=== PATIENT | female | born 1970 | race African-American/Black ===

== ENCOUNTER 2018-02-15 17:26 | Emergency (ER) | payer SELFPAY ==
[2018-02-15] MEDS ORDERED: cloNIDine HCl 0.1 MG TAB ONE (18:38)
--- NOTE | 2018-02-15 19:21 | RAD REPORT ---
EXAM DESCRIPTION: Lauren Lubin (2 Views)02/15/2018 7:15 pm CLINICAL HISTORY: Cough COMPARISON: 2014 FINDINGS: The lungs appear clear of acute infiltrate. The heart is normal size IMPRESSION: No acute abnormalities displayed
--- NOTE | 2018-02-15 19:26 | ER ---
Nurse's Notes [facility] Name: Nisreen Astorga Age: 47 yrs Sex: Female : 1970 Arrival Date: 02/15/2018 Time: 17:30 Bed 25 Private MD: Diagnosis: Bronchitis, not specified as acute or chronic;Acute serous otitis media, bilateral Presentation: 02/15 17:38 Presenting complaint: Patient states: Sore throat, chest pain, sinus congestion, hb headache, abdominal pain, malaise, body aches, and and fever since yesterday. Transition of care: patient was not received from another setting of care. Onset of symptoms was February 14, 2018. Care prior to arrival: None. 17:38 Method Of Arrival: Ambulatory hb 17:38 Acuity: DANIEL 3 hb Triage Assessment: 19:17 General: Appears in no apparent distress. well groomed, well developed, well nourished, rk2 Behavior is calm, cooperative. Pain: Complains of pain in General pain, body aches. Neuro: Level of Consciousness is alert, obeys commands, Oriented to person, place, time, situation. Respiratory: Airway is patent Respiratory effort is even, unlabored, Respiratory pattern is regular, symmetrical. Derm: Skin is pink, warm \T\ dry. 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 - Social history:: Smoking status: Patient/guardian denies using tobacco. Screenin:15 Abuse screen: Denies threats or abuse. rk2 18:15 Nutritional screening: No deficits noted. Tuberculosis screening: No symptoms or risk rk2 factors identified. Fall Risk None identified. Assessment: 19:16 Reassessment: Pt. returned from xray. rk2 19:19 Pain:. rk2 Vital Signs: 17:41 BP 229 / 78; Pulse 106; Resp 20; Temp 99; Pulse Ox 98% on R/A; Weight 141.07 kg; Height hb 5 ft. 2 in. (157.48 cm); Pain 10/10; 19:34 BP 185 / 95; Pulse 99; Resp 19; Pulse Ox 98% ; rk2 17:41 Body Mass Index 56.88 (141.07 kg, 157.48 cm) hb ED Course: 17:30 Patient arrived in ED. as 17:40 Triage completed. hb 17:41 Arm band placed on right wrist. hb 17:44 Isabelle Petersen, RN is Primary Nurse. rk2 17:51 Crystal Álvarez FNP-C is [facility]. snw 17:51 Karlos Zelaya MD is Attending Physician. snw 18:15 Patient has correct armband on for positive identification. Bed in low position. Call rk2 light in reach. Side rails up X2. 19:07 Patient moved to radiology via wheelchair. kc2 19:07 X-ray completed. Patient tolerated procedure well. kc2 19:07 Patient moved back from radiology. kc2 19:07 Chest Pa And Lat (2 Views) XRAY In Process Unspecified. EDMS 19:53 No provider procedures requiring assistance completed. Patient did not have IV access rk2 during this emergency room visit. Administered Medications: 18:22 Drug: cloNIDine 0.2 mg Route: PO; rk2 19:40 Follow up: Response: Blood pressure is lowered rk2 Outcome: 19:24 Discharge ordered by . snw 19:53 Discharged to home ambulatory. rk2 19:53 Condition: good 19:53 Discharge instructions given to patient, Prescriptions given X 3. 19:55 Patient left the ED. rk2 Signatures: Dispatcher [employer] EDMS Crystal Álvarez FNP-C FNP-[facility]cedez Crockett as Bee Villagran RN RN Terri Watkins kc2 Isabelle Petersen, JOHN RN rk2
--- NOTE | 2018-02-15 19:26 | EDPHYS ---
Physician Documentation [facility] Name: Nisreen Astorga Age: 47 yrs Sex: Female : 1970 Arrival Date: 02/15/2018 Time: 17:30 Bed 25 Private MD: ED Physician Karlos Zelaya HPI: 02/15 19:20 This 47 yrs old Black Female presents to ER via Ambulatory with complaints of Flu snw Symptoms. 19:20 Onset: The symptoms/episode began/occurred suddenly. Associated signs and symptoms: snw Pertinent positives: cough, sore throat. Modifying factors: The patient symptoms are alleviated by nothing. It is unknown whether or not the patient has had similar symptoms in the past. pt has medication bottles that have not been filled x 1 and 2 years. Pt states current symptoms started suddenly yesterday. 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 - Social history:: Smoking status: Patient/guardian denies using tobacco. ROS: 19:22 Constitutional: Negative for fever, chills, and weight loss, Eyes: Negative for injury, snw pain, redness, and discharge, ENT: Negative for injury, pain, and discharge, Neck: Negative for injury, pain, and swelling. 19:22 Cardiovascular: Negative for chest pain, palpitations, and edema. 19:22 Abdomen/GI: Negative for abdominal pain, nausea, vomiting, diarrhea, and constipation, Back: Negative for injury and pain, : Negative for injury, bleeding, discharge, and swelling, MS/Extremity: Negative for injury and deformity, Skin: Negative for injury, rash, and discoloration, Neuro: Negative for headache, weakness, numbness, tingling, and seizure. 19:22 Respiratory: Positive for cough, with no reported sputum. Exam: 19:18 Head/Face: Normocephalic, atraumatic. Eyes: Pupils equal round and reactive to light, snw extra-ocular motions intact. Lids and lashes normal. Conjunctiva and sclera are non-icteric and not injected. Cornea within normal limits. Periorbital areas with no swelling, redness, or edema. ENT: Nares patent. No nasal discharge, no septal abnormalities noted. Tympanic membranes are erythematous and external auditory canals are clear. Oropharynx with no redness, swelling, or masses, exudates, or evidence of obstruction, uvula midline. Mucous membranes moist. Neck: Trachea midline, no thyromegaly or masses palpated, and no cervical lymphadenopathy. Supple, full range of motion without nuchal rigidity, or vertebral point tenderness. No Meningismus. Chest/axilla: Normal chest wall appearance and motion. Nontender with no deformity. No lesions are appreciated. 19:18 Abdomen/GI: Soft, non-tender, with normal bowel sounds. No distension or tympany. No guarding or rebound. No evidence of tenderness throughout. Back: No spinal tenderness. No costovertebral tenderness. Full range of motion. Skin: Warm, dry with normal turgor. Normal color with no rashes, no lesions, and no evidence of cellulitis. MS/ Extremity: Pulses equal, no cyanosis. Neurovascular intact. Full, normal range of motion. Neuro: Awake and alert, GCS 15, oriented to person, place, time, and situation. Cranial nerves II-XII grossly intact. Motor strength 5/5 in all extremities. Sensory grossly intact. Cerebellar exam normal. Normal gait. 19:18 Constitutional: The patient appears alert, awake, obese. 19:18 Cardiovascular: Rate: tachycardic, Edema: is not appreciated. 19:18 Respiratory: the patient does not display signs of respiratory distress, Respirations: normal, Breath sounds: + upper airway congestion. bronchitic cough. Vital Signs: 17:41 BP 229 / 78; Pulse 106; Resp 20; Temp 99; Pulse Ox 98% on R/A; Weight 141.07 kg; Height hb 5 ft. 2 in. (157.48 cm); Pain 10/10; 19:34 BP 185 / 95; Pulse 99; Resp 19; Pulse Ox 98% ; rk2 17:41 Body Mass Index 56.88 (141.07 kg, 157.48 cm) hb MDM: 17:51 Patient medically screened. snw 19:29 Data reviewed: vital signs, nurses notes. Data interpreted: Pulse oximetry: on room air snw is 98 %. Interpretation: normal. Counseling: I had a detailed discussion with the patient and/or guardian regarding: the historical points, exam findings, and any diagnostic results supporting the discharge/admit diagnosis, the presence of at least one elevated blood pressure reading (>120/80) during this emergency department visit, lab results, radiology results, the need for outpatient follow up, to return to the emergency department if symptoms worsen or persist or if there are any questions or concerns that arise at home. Special discussion: I have referred the patient to see his PCP for further evaluation of high blood pressure. Based on the history and exam findings, there is no indication for further emergent testing or inpatient evaluation. I discussed with the patient/guardian the need to see the primary care provider for further evaluation of the symptoms. 02/15 17:51 Order name: Flu; Complete Time: 18:51 snw 02/15 17:51 Order name: Strep; Complete Time: 18:51 snw 02/15 18:45 Order name: Throat Culture EDMS 02/15 18:51 Order name: Chest Pa And Lat (2 Views) XRAY; Complete Time: 19:27 snw Administered Medications: 18:22 Drug: cloNIDine 0.2 mg Route: PO; rk2 19:40 Follow up: Response: Blood pressure is lowered rk2 Disposition: 02/16 07:11 Co-signature as Attending Physician, Karlos Zelaya MD I agree with the assessment and felipe plan of care. Disposition: 02/15/18 19:24 Discharged to Home. Impression: Bronchitis, not specified as acute or chronic, Acute serous otitis media, bilateral. - Condition is Stable. - Discharge Instructions: Acute Bronchitis, Otitis Media, Adult, Hypertension, Cough, Adult, Rehydration, Adult. - Prescriptions for amlodipine 10 mg Oral tablet - take 1 tablet by ORAL route once daily; 30 tablet. Albuterol Sulfate 90 mcg/actuation - inhale 1-2 puff by INHALATION route every 4-6 hours; 1 Inhaler. Zithromax 500 mg Oral Tablet - take 1 tablet by ORAL route once daily for 5 days; 5 tablet. - Work release form, Medication Reconciliation Form, Thank You Letter, Antibiotic Education, Prescription Opioid Use form. - Follow up: Private Physician; When: 2 - 3 days; Reason: Recheck today's complaints, Continuance of care, Re-evaluation by your physician. Follow up: Emergency Department; When: As needed; Reason: Worsening of condition. Signatures: Dispatcher [employer] Karlos Sagastume MD MD cha Therrien, Shelly, WIRE STITCHER OPERATOR-C WIRE STITCHER OPERATOR-Csnw Bee Villagran, RN RN hb Isabelle Petersen RN RN rk2
[2018-02-15 20:04] VITALS: TEMP 99; O2SAT 98
[2018-02-15 20:05] VITALS: BP 185/95
== END 2018-02-15 19:55 | disposition home or self-care (01) ==
LOC: ER 17:26
DX: J40 Bronchitis, not specified as acute or chronic (principal); H65.03 Acute serous otitis media, bilateral; I10 Essential (primary) hypertension
CPT/HCPCS: 71046; 87070; 87081; 87804; 99283

== ENCOUNTER 2018-07-25 08:24 | Observation (INO) | payer SELFPAY ==
[2018-07-25] MEDS ORDERED: NA CHLORIDE 0.9% 1,000 ML ONE (08:52)
[2018-07-25] MEDS ORDERED: ASPIRIN 81 MG CHEWABLE TABLET ONE (08:52)
[2018-07-25 09:05] LABS: Absolute Lymphocytes (CBC) 1.8 K/uL (0.7-4.9); Absolute Monocytes 0.5 K/uL (0.1-1.3); Absolute Neutrophil 3.3 K/uL (1.8-8.0); Basophils % 0.4 % (0-1.3); Eosinophils % 0.5 % (0-4.4); Hematocrit 38.7 % (36.0-45.0); Lymphocytes % 32.2 % (15.3-44.8); MCH 29.6 pg (27.0-35.0); MCV 89.4 fL (80-100); MPV 9.5 fL (7.6-11.3); Monocytes % 8.2 % (3.3-12.3); RBC Red Blood Cell Count 4.33 M/uL (3.86-4.86)
[2018-07-25 09:07] LABS: Protime INR 1.01
--- NOTE | 2018-07-25 09:19 | RAD REPORT ---
EXAM DESCRIPTION: RAD - Chest Single View - 07/25/2018 8:55 am CLINICAL HISTORY: CHEST PAIN Chest pain. COMPARISON: Chest Pa And Lat (2 Views) dated 02/15/2018; CHEST SINGLE VIEW dated 03/01/2014; CHEST SIN GLE VIEW dated 02/28/2014; CHEST SINGLE VIEW dated 11/11/2008 FINDINGS: Portable technique limits examination quality. The lungs are grossly clear. The heart is normal in size. No displaced fractures. IMPRESSION: No acute intrathoracic process suspected.
[2018-07-25 09:26] LABS: ALT/SGPT 21 U/L (12-78); AST/SGOT 11 U/L (15-37); Albumin 3.4 g/dL (3.4-5.0); Alkaline Phosphatase 66 U/L (45-117); BUN Blood Urea Nitrogen 15 mg/dL (7-18); Bicarbonate 30 mmol/L (21-32); Bilirubin Direct < 0.1 mg/dL (0-0.2); Bilirubin Total 0.2 mg/dL (0.2-1.0); CKMB Creatine Kinase MB < 1.0 ng/mL (0.3-3.6); Creatine Phosphokinase 70 U/L (26-192); Glucose Level 96 mg/dL (74-106); Lipase 106 U/L (73-393); NT PRO-BNP 89 pg/mL (<125); Potassium 3.8 mmol/L (3.5-5.1); Protein, Total 8.5 g/dL (6.4-8.2); Sodium Level 141 mmol/L (136-145); Troponin (Emerg Dept Use Only) < 0.02 ng/mL (0.0-0.045)
[2018-07-25] MEDS ORDERED: ENOXAPARIN 40 MG/0.4 ML SQ ONE (09:27)
[2018-07-25] MEDS ORDERED: ENOXAPARIN 100 MG/ML SYR SQ ONE (09:27)
[2018-07-25] MEDS ORDERED: METOPROLOL TAR 50 MG TAB ONE (09:27)
[2018-07-25] MEDS ORDERED: MORPHINE 4 MG/ML SYR ONE (09:44)
[2018-07-25] MEDS ORDERED: ONDANSETRON 4 MG/2 ML VIAL ONE (09:44)
--- NOTE | 2018-07-25 10:16 | RAD REPORT ---
EXAM DESCRIPTION: US - Extrem Venous W Compress Iban - 07/25/2018 10:03 am CLINICAL HISTORY: PAIN Bilateral leg edema and swelling. COMPARISON: No comparisons TECHNIQUE: Real-time sonographic interrogation of the left and right lower extremity deep venous sys tems was performed. FINDINGS: Normal compressibility, flow augmentation, phasic flow and spontaneous flow is identified in both the left and right lower extremity deep venous systems. 5 cm right Soto's cyst. IMPRESSION: No sonographic evidence of left or right lower extremity deep venous thrombosis.
--- NOTE | 2018-07-25 10:20 | RAD REPORT ---
EXAM DESCRIPTION: CT - Chest For Pe Angio - 07/25/2018 10:12 am CLINICAL HISTORY: Chest pain. Chest pain;Dyspnea COMPARISON: CTANGIO CHEST FOR PE dated 02/28/2014 TECHNIQUE: CT angiogram of the pulmonary arteries was performed with MIP. All CT scans are performed using dose optimization technique as appropriate and may include automated exposure control or mA/KV adjustment according to patient size. FINDINGS: No evidence of pulmonary thromboembolism. No acute aortic finding demonstrated. The lungs are clear. No significant pericardial or pleural fluid. Mild thoracic spine degenerative changes. IMPRESSION: No evidence of pulmonary thromboembolism. No acute lung findings.
--- NOTE | 2018-07-25 10:58 | ER ---
Nurse's Notes [facility] Name: Nisreen Astorga Age: 47 yrs Sex: Female : 1970 Arrival Date: 07/25/2018 Time: 08:30 Bed 15 Private MD: None, None Diagnosis: Other chest pain;Essential (primary) hypertension;Obesity, unspecified;Dyspnea Presentation: 07/25 08:41 Presenting complaint: Patient states: Reports chest pain x 1 week, worse w/ movement ph and deep breathing, also c/o SOB, nausea and blurred vision. Transition of care: patient was not received from another setting of care. Onset of symptoms was July 25, 2018. Risk Assessment: Do you want to hurt yourself or someone else? Patient reports no desire to harm self or others. Initial Sepsis Screen: Does the patient meet any 2 criteria? No. Patient's initial sepsis screen is negative. Does the patient have a suspected source of infection? No. Patient's initial sepsis screen is negative. Care prior to arrival: None. 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 - Social history:: Smoking status: Patient/guardian denies using tobacco. - Ebola Screening: : No symptoms or risks identified at this time. - Family history:: not pertinent. Screenin:40 Abuse screen: Denies threats or abuse. Nutritional screening: No deficits noted. rb1 Tuberculosis screening: No symptoms or risk factors identified. Fall Risk None identified. Assessment: 08:40 General: Appears in no apparent distress. comfortable, obese, Behavior is calm, rb1 cooperative, Reports chills for Denies fever. Pain: Complains of pain in mid-sternal area Pain radiates to middle of back Pain currently is 8 out of 10 on a pain scale. Pain began x 1 week Aggravated by deep breathing and movement. Neuro: Level of Consciousness is awake, alert, obeys commands, Oriented to person, place, time, situation, Reports headache in left frontal area. Cardiovascular: Capillary refill < 3 seconds is brisk in bilateral fingers. Respiratory: Reports shortness of breath on exertion Airway is patent Respiratory effort is even, unlabored, Respiratory pattern is regular, symmetrical. GI: No signs and/or symptoms were reported involving the gastrointestinal system. : No signs and/or symptoms were reported regarding the genitourinary system. Derm: Skin is dry, Skin is normal, Skin temperature is warm. 08:50 Reassessment: Patient appears in no apparent distress at this time. Patient is alert, ss oriented x 3, equal unlabored respirations, skin warm/dry/pink. XRAY being obtained at this time. 09:35 Reassessment: Patient appears in no apparent distress at this time. Patient and/or rb1 family updated on plan of care and expected duration. Pain level reassessed. Patient is alert, oriented x 3, equal unlabored respirations, skin warm/dry/pink. Family at bedside. 10:29 Reassessment: Patient appears in no apparent distress at this time. Patient and/or rb1 family updated on plan of care and expected duration. Pain level reassessed. Patient is alert, oriented x 3, equal unlabored respirations, skin warm/dry/pink. Family at bedside. 11:28 Reassessment: Patient appears in no apparent distress at this time. No changes from rb1 previously documented assessment. 12:17 Reassessment: Patient appears in no apparent distress at this time. Patient and/or sm4 family updated on plan of care and expected duration. Pain level reassessed. Patient is alert, oriented x 3, equal unlabored respirations, skin warm/dry/pink. 12:22 Reassessment: Tried to call report and was left on hold. rb1 12:24 Reassessment: Tried to call report and was left on hold. rb1 12:26 Reassessment: Called report to AGUSTIN Orona. Information from the [facility] was given, all rb1 questions asked and answered. Vital Signs: 08:43 BP 178 / 92; Pulse 91; Resp 22; Temp 98.0; Pulse Ox 97% on R/A; Weight 141.07 kg; ph Height 5 ft. 2 in. (157.48 cm); Pain 8/10; 09:00 BP 203 / 93; Pulse 85; Resp 20; Pulse Ox 99% on R/A; jl7 09:30 BP 215 / 96; Pulse 77; Resp 17; Pulse Ox 99% ; rb1 10:22 BP 187 / 100; Pulse 66; Resp 22; Pulse Ox 99% ; rb1 10:45 BP 200 / 94; Pulse 61; Resp 20; Pulse Ox 99% on R/A; rb1 11:39 BP 195 / 88; Pulse 55; Resp 20; Pulse Ox 98% on R/A; rb1 12:18 BP 180 / 92; Pulse 57; Resp 21; Pulse Ox 99% on R/A; sm4 08:43 Body Mass Index 56.88 (141.07 kg, 157.48 cm) ph ED Course: 08:30 Patient arrived in ED. sb2 08:31 None, None is Private Physician. sb2 08:36 Judi Hutson, RN is Primary Nurse. rb1 08:37 Karlos Zelaya MD is Attending Physician. felipe 08:40 Patient has correct armband on for positive identification. Bed in low position. Call rb1 light in reach. Side rails up X 1. financial analysis consultant on. Pulse ox on. NIBP on. Warm blanket given. 08:43 Triage completed. ph 08:44 Arm band placed on Patient placed in an exam room. ph 08:47 EKG done, by laundry technician. reviewed by Karlos Zelaya MD. at1 08:50 Inserted saline lock: 22 gauge in right antecubital area, using aseptic technique. ss Blood collected. Patient maintains SpO2 saturation greater than 95% on room air. 08:54 X-ray completed. Portable x-ray completed in exam room. Patient tolerated procedure ml well. 08:56 XRAY Chest (1 view) In Process Unspecified. EDMS 09:46 US Extremity Venous W Compression Iban In Process Unspecified. EDMS 10:05 Ultrasound completed. Patient tolerated well. hr 10:[address] via wheelchair. hr 10:49 Urine collected: clean catch specimen, cloudy, priya colored. jb1 10:56 Bev Milligan MD is Hospitalizing Provider. felipe 12:43 No provider procedures requiring assistance completed. Patient admitted, IV remains in rb1 place. Administered Medications: 08:50 Drug: Aspirin Chewable Tablet 162 mg Route: PO; rb1 09:15 Follow up: Response: No adverse reaction rb1 09:30 Drug: NS 0.9% 1000 ml Route: IV; Rate: 125 ml/hr; Site: right antecubital; ss 12:43 Follow up: IV Status: Infusion continued upon admission rb1 09:30 Drug: Lovenox 1 mg/kg {Note: 100 mg administered to L lower abd and 40 mg administered ss in R lower abd.} Route: Sub-Q; Site: left lower abdomen; 10:10 Follow up: Response: No adverse reaction rb1 09:30 Drug: Lopressor (metoprolol TARTRATE) 50 mg Route: PO; ss 10:30 Follow up: Response: No adverse reaction; Blood pressure is unchanged rb1 10:27 Drug: morphine 2 mg Route: IVP; Site: right antecubital; rb1 10:40 Follow up: Response: No adverse reaction; Pain is decreased sm4 10:27 Drug: Zofran 4 mg Route: IVP; Site: right antecubital; rb1 11:40 Follow up: Response: No adverse reaction; Nausea is decreased sm4 12:43 Not Given (Pt. did not want the dose before going to the flood.): morphine 2 mg IVP oncerb1 Outcome: 10:56 Decision to Hospitalize by Provider. [facility] 12:43 Admitted to Med/surg accompanied by nurse, via wheelchair, room 228, with chart, Report rb1 called to AGUSTIN Orona. Information from the SB[facility] was given. All questions asked and answered. 12:43 Condition: stable rb1 12:43 Instructed on the need for admit. 12:47 Patient left the ED. rb1 Signatures: Dispatcher [employer] EDMS Mario Boucher jb1 Karlos Zelaya MD MD cha Rod, Haley hr Lopez, Melissa ml Smirch, Shelby, RN RN ss Leydi Kohli, gettering operator EKG Tat1 Jamila Sherwood RN RN Judi Thornton, RN RN rb1 Osorio Michelle RN RN [email or web address] Sandra Payan sb2 Griffin Jacobson RN RN sm4
--- NOTE | 2018-07-25 10:58 | EDPHYS ---
Physician Documentation [facility] Name: Nisreen Astorga Age: 47 yrs Sex: Female : 1970 Arrival Date: 07/25/2018 Time: 08:30 Bed 15 Private MD: None, None ED Physician Karlos Zelaya HPI: 07/25 09:22 This 47 yrs old Black Female presents to ER via Ambulatory with complaints of Chest felipe Pain. 09:22 The patient or guardian reports chest pain that is located primarily in the substernal felipe area, anterior chest wall. Onset: 5 day(s) ago. The pain does not radiate. Associated signs and symptoms: The patient has no apparent associated signs or symptoms. The chest pain is described as a heaviness, causing indigestion, a pressure. Duration: The patient or guardian reports multiple episodes, that wax and wane, with no pattern. Modifying factors: The symptoms are alleviated by remaining still, rest, the symptoms are aggravated by breathing, exertion, movement. Severity of pain: At its worst the pain was mild in the emergency department the pain is unchanged. The patient has not experienced similar symptoms in the past. 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 - Social history:: Smoking status: Patient/guardian denies using tobacco. - Ebola Screening: : No symptoms or risks identified at this time. - Family history:: not pertinent. ROS: 09:22 Constitutional: Negative for fever, chills, and weight loss, Eyes: Negative for injury, felipe pain, redness, and discharge, ENT: Negative for injury, pain, and discharge, Neck: Negative for injury, pain, and swelling, Respiratory: Negative for shortness of breath, cough, wheezing, and pleuritic chest pain, Abdomen/GI: Negative for abdominal pain, nausea, vomiting, diarrhea, and constipation, Back: Negative for injury and pain, : Negative for injury, bleeding, discharge, and swelling, MS/Extremity: Negative for injury and deformity, Skin: Negative for injury, rash, and discoloration, Neuro: Negative for headache, weakness, numbness, tingling, and seizure, Psych: Negative for depression, anxiety, suicide ideation, homicidal ideation, and hallucinations, Allergy/Immunology: Negative for hives, rash, and allergies, Endocrine: Negative for neck swelling, polydipsia, polyuria, polyphagia, and marked weight changes, Hematologic/Lymphatic: Negative for swollen nodes, abnormal bleeding, and unusual bruising. :22 Cardiovascular: Positive for chest pain. Exam: : Constitutional: This is a well developed, well nourished patient who is awake, alert, felipe and in no acute distress. Head/Face: Normocephalic, atraumatic. Eyes: Pupils equal round and reactive to light, extra-ocular motions intact. Lids and lashes normal. Conjunctiva and sclera are non-icteric and not injected. Cornea within normal limits. Periorbital areas with no swelling, redness, or edema. ENT: Nares patent. No nasal discharge, no septal abnormalities noted. Tympanic membranes are normal and external auditory canals are clear. Oropharynx with no redness, swelling, or masses, exudates, or evidence of obstruction, uvula midline. Mucous membranes moist. Neck: Trachea midline, no thyromegaly or masses palpated, and no cervical lymphadenopathy. Supple, full range of motion without nuchal rigidity, or vertebral point tenderness. No Meningismus. Chest/axilla: Normal chest wall appearance and motion. Nontender with no deformity. No lesions are appreciated. Cardiovascular: Regular rate and rhythm with a normal S1 and S2. No gallops, murmurs, or rubs. Normal PMI, no JVD. No pulse deficits. Respiratory: Lungs have equal breath sounds bilaterally, clear to auscultation and percussion. No rales, rhonchi or wheezes noted. No increased work of breathing, no retractions or nasal flaring. Abdomen/GI: Soft, non-tender, with normal bowel sounds. No distension or tympany. No guarding or rebound. No evidence of tenderness throughout. Back: No spinal tenderness. No costovertebral tenderness. Full range of motion. Skin: Warm, dry with normal turgor. Normal color with no rashes, no lesions, and no evidence of cellulitis. MS/ Extremity: Pulses equal, no cyanosis. Neurovascular intact. Full, normal range of motion. Neuro: Awake and alert, GCS 15, oriented to person, place, time, and situation. Cranial nerves II-XII grossly intact. Motor strength 5/5 in all extremities. Sensory grossly intact. Cerebellar exam normal. Normal gait. Psych: Awake, alert, with orientation to person, place and time. Behavior, mood, and affect are within normal limits. 09:22 Musculoskeletal/extremity: Extremities: all appear grossly normal, with no appreciated pain with palpation, DVT Exam: No signs of deep vein thrombosis. no pain, no swelling, no tenderness, negative Homans' sign noted on exam, no appreciated bluish discoloration, no erythema, no increased warmth. Vital Signs: 08:43 BP 178 / 92; Pulse 91; Resp 22; Temp 98.0; Pulse Ox 97% on R/A; Weight 141.07 kg; ph Height 5 ft. 2 in. (157.48 cm); Pain 8/10; 09:00 BP 203 / 93; Pulse 85; Resp 20; Pulse Ox 99% on R/A; jl7 09:30 BP 215 / 96; Pulse 77; Resp 17; Pulse Ox 99% ; rb1 10:22 BP 187 / 100; Pulse 66; Resp 22; Pulse Ox 99% ; rb1 10:45 BP 200 / 94; Pulse 61; Resp 20; Pulse Ox 99% on R/A; rb1 11:39 BP 195 / 88; Pulse 55; Resp 20; Pulse Ox 98% on R/A; rb1 12:18 BP 180 / 92; Pulse 57; Resp 21; Pulse Ox 99% on R/A; sm4 08:43 Body Mass Index 56.88 (141.07 kg, 157.48 cm) ph MDM: 08:37 Patient medically screened. [facility] 09:25 Data reviewed: vital signs, nurses notes, lab test result(s), EKG, radiologic studies, [facility] CT scan, plain films, ultrasound. 07/25 08:38 Order name: Basic Metabolic Panel; Complete Time: 11:58 [facility] 07/25 08:38 Order name: CBC with Diff; Complete Time: 11:58 [facility] 07/25 08:38 Order name: Ckmb; Complete Time: 11:58 [facility] 07/25 08:38 Order name: CPK; Complete Time: 11:58 [facility] 07/25 08:38 Order name: LFT's; Complete Time: 11:58 [facility] 07/25 08:38 Order name: Magnesium; Complete Time: 11:58 [facility] 07/25 08:38 Order name: NT PRO-BNP; Complete Time: 11:58 [facility] 07/25 08:38 Order name: PT-INR; Complete Time: 11:58 felipe 07/25 08:38 Order name: Ptt, Activated; Complete Time: 11:58 [facility] 07/25 08:38 Order name: Troponin (emerg Dept Use Only); Complete Time: 11:58 [facility] 07/25 08:38 Order name: Lipase; Complete Time: 11:58 [facility] 07/25 08:38 Order name: D-Dimer; Complete Time: 11:58 [facility] 07/25 10:51 Order name: Urine Dipstick--Ancillary (enter results) eb 07/25 10:51 Order name: Urine --Ancillary (enter results) eb 07/25 08:38 Order name: Urine Test (obtain specimen); Complete Time: 10:50 [facility] 07/25 08:38 Order name: XRAY Chest (1 view); Complete Time: 11:58 [facility] 07/25 08:38 Order name: EKG; Complete Time: 08:40 [facility] 07/25 08:38 Order name: Cardiac monitoring; Complete Time: 08:50 [facility] 07/25 09:13 Order name: US Extremity Venous W Compression Iban; Complete Time: 11:58 [facility] 07/25 09:13 Order name: CT Chest For PE Angio [facility] 07/25 09:33 Order name: CONS Physician Consult [facility] 07/25 09:33 Order name: Echo with Doppler [facility] 07/25 10:20 Order name: CT; Complete Time: 11:58 [facility] 07/25 08:38 Order name: EKG - Nurse/Tech; Complete Time: 08:50 [facility] 07/25 08:38 Order name: IV Saline Lock; Complete Time: 08:50 [facility] 07/25 08:38 Order name: Labs collected and sent; Complete Time: 08:50 [facility] 07/25 08:38 Order name: O2 Per Protocol; Complete Time: 08:50 [facility] 07/25 08:38 Order name: O2 Sat Monitoring; Complete Time: 08:50 [facility] 07/25 08:38 Order name: Urine Dipstick-Ancillary (obtain specimen); Complete Time: 11:06 [facility] Administered Medications: 08:50 Drug: Aspirin Chewable Tablet 162 mg Route: PO; rb1 09:15 Follow up: Response: No adverse reaction rb1 09:30 Drug: NS 0.9% 1000 ml Route: IV; Rate: 125 ml/hr; Site: right antecubital; ss 12:43 Follow up: IV Status: Infusion continued upon admission rb1 09:30 Drug: Lovenox 1 mg/kg {Note: 100 mg administered to L lower abd and 40 mg administered ss in R lower abd.} Route: Sub-Q; Site: left lower abdomen; 10:10 Follow up: Response: No adverse reaction rb1 09:30 Drug: Lopressor (metoprolol TARTRATE) 50 mg Route: PO; ss 10:30 Follow up: Response: No adverse reaction; Blood pressure is unchanged rb1 10:27 Drug: morphine 2 mg Route: IVP; Site: right antecubital; rb1 10:40 Follow up: Response: No adverse reaction; Pain is decreased sm4 10:27 Drug: Zofran 4 mg Route: IVP; Site: right antecubital; rb1 11:40 Follow up: Response: No adverse reaction; Nausea is decreased sm4 12:43 Not Given (Pt. did not want the dose before going to the flood.): morphine 2 mg IVP oncerb1 Disposition: 07/25/18 10:56 Hospitalization ordered by Bev Milligan for Observation. Preliminary diagnosis are Other chest pain, Essential (primary) hypertension, Obesity, unspecified, Dyspnea. - Bed requested for Telemetry/MedSurg (observation). - Status is Observation. rb1 - Condition is Stable. - Problem is new. - Symptoms have improved. UTI on Admission? No Signatures: Dispatcher [employer] EDDE Karlos Zelaya MD MD cha Smirch, Shelby RN RN ss Jamila Sherwood RN RN Judi Hutson, RN RN rb1 Griffin Jacobson RN sm4 Corrections: (The following items were deleted from the chart) 12:10 10:56 Hospitalization Ordered by Bev Milligan MD for Observation. Preliminary ss diagnosis is Other chest pain; Essential (primary) hypertension; Obesity, unspecified; Dyspnea. Bed requested for Telemetry/MedSurg (observation). Status is Observation. Condition is Stable. Problem is new. Symptoms have improved. UTI on Admission? No. felipe 12:47 12:10 07/25/2018 10:56 Hospitalization Ordered by Bev Milligan MD for Observation. rb1 Preliminary diagnosis is Other chest pain; Essential (primary) hypertension; Obesity, unspecified; Dyspnea. Bed requested for Telemetry/MedSurg (observation). Status is Observation. Condition is Stable. Problem is new. Symptoms have improved. UTI on Admission? No. ss
--- NOTE | 2018-07-25 12:00 | P.HP ---
Certification for Inpatient Patient admitted to: Observation With expected LOS: <2 Midnights Patient will require the following post-hospital care: None Practitioner: I am a practitioner with admitting privileges, knowledge of patient current condition, hospital course, and medical plan of care. Services: Services provided to patient in accordance with Admission requirements found in Title 42 Section 412.3 of the Code of Federal Regulations Patient History Date of Service: 07/25/18 Primary Care Provider: None Reason for admission: HTN urgency History of Present Illness: This is a 47-year-old female with significant past medical history of asthma, hypertension who presented to the ED complaining of having some chest discomfort that started about this morning. Patient stated that for past couple of days she has been having some headaches along with the blurry vision and this morning she started noticing some chest discomfort and thus decided to bring herself to the ER. Patient does have a history of high blood pressure and has not been able to control her blood pressure at home. Patient stated that she has family history of dilated cardiomyopathy and her family member has and he and his 24 from having massive heart attack. Patient thus became nervous when she started having chest pain wanted it further checked out. Patient also noted that she has been having some nausea and diarrhea along with the chest discomfort. Denies having any fever however states that she has been noticing some chills as well. No other complaints to offer at this time. In the ER patient still had intermittent chest pain, Quick troponin x1 was negative, EKG was within normal limits, patient was thus referred over to admission for further workup given the strong family history of cardiac disease along with atypical chest pain. Allergies No Known Allergies Allergy (Verified 03/01/14 05:05) Home Medications: Benzonatate [Tessalon Perle*] 100 mg PO Q6H PRN #30 cap 03/04/14 Metoprolol Tartrate [Lopressor*] 50 mg PO BID #60 tab 03/04/14 - Past Medical/Surgical History Diabetic: No -: HTN, HYPERLIPIDEMIA, ASTHMA, BRONCHITIS Past Surgical History: Reviewed- Non-Contributory - Family History Brother -: Heart disease - Social History Alcohol use: No CD- Drugs: No Caffeine use: Yes Review of Systems 10-point ROS is otherwise unremarkable Physical Examination - Physical Exam General: Alert, In no apparent distress, Obese HEENT: Atraumatic, PERRLA, Mucous membr. moist/pink, EOMI, Sclerae nonicteric Neck: Supple, 2+ carotid pulse no bruit, No LAD, Without JVD or thyroid abnormality Respiratory: Clear to auscultation bilaterally, Normal air movement Cardiovascular: Regular rate/rhythm, Normal S1 S2 Gastrointestinal: Normal bowel sounds, No tenderness Musculoskeletal: No tenderness Integumentary: No rashes Neurological: Normal gait, Normal speech, Normal strength at 5/5 x4 extr, Normal tone, Normal affect Lymphatics: No axilla or inguinal lymphadenopathy - Studies Laboratory Data (last 24 hrs) 07/25/18 08:48: PT 11.9, INR 1.01, APTT 33.3 07/25/18 08:48: WBC 5.7, Hgb 12.8, Hct 38.7, Plt Count 234 07/25/18 08:48: Sodium 141, Potassium 3.8, BUN 15, Creatinine 0.80, Glucose 96, Magnesium 2.0, Total Bilirubin 0.2, AST 11 L, ALT 21, Alkaline Phosphatase 66, Lipase 106 Assessment and Plan - Problems (Diagnosis) (1) Hypertensive urgency Current Visit: Yes Status: Acute Plan: BP in the ER 203/94 -Restart Amlodipine at this time -PRN hydralazine and Labetolol. -Await ECHO to start another agent for BP control (2) Chest pain Current Visit: Yes Status: Acute Plan: Atypical chest pain. Troponin x1 negative in the ER. EKG within normal limits. -Patient does have strong family history of dilated cardiomyopathy and from dilated cardiomyopathy -Troponin x2 over a 2D echo pending, stress disorder for tomorrow morning as well -cardiology consulted. Appreciated recommendations at this time -Will resume blood pressure medication here in the hospital as this could be a reason why patient is also having chest pain. (3) Obesity (BMI 35.0-39.9 without comorbidity) Current Visit: Yes Status: Chronic - Plan Patient will be admitted to [facility] [place] under cardiac tele for further workup of her hypertensive urgency and chest pain. Discharge Plan: Home Plan to discharge in: 48 Hours - Advance Directives Does patient have a Living Will: No Does patient have a Durable POA for Healthcare: No - Code Status/Comfort Care Code Status Assessed: Yes Critical Care: No
--- NOTE | 2018-07-25 12:19 | EKG ---
Test Date: 2018-07-25 Test Time: 08:47:57 Paper Machine Supervisor: SOLE MEASUREMENT RESULTS: Intervals: Rate: 80 IA: 152 QRSD: 80 QT: 366 QTc: 422 [place]: P: 31 IA: 152 QRS: 50 T: 123 INTERPRETIVE STATEMENTS: Normal sinus rhythm T wave abnormality, consider lateral ischemia Abnormal ECG Compared to ECG 02/28/2014 20:10:52 Possible ischemia now present Sinus tachycardia no longer present T-wave abnormality still present Electronically Signed On 07-25-18 12:18:49 CDT by Laz Thapa
[2018-07-25] MEDS ORDERED: ONDANSETRON 4 MG/2 ML VIAL IV PRN (12:43)
[2018-07-25 13:12] VITALS: BMI 59.7
[2018-07-25 13:44] LABS: Urine Blood 1+ (NEG); Urine Glucose NEGATIVE (NEG); Urine Protein NEGATIVE (NEG)
[2018-07-25 13:46] VITALS: O2SAT 99
[2018-07-25 14:12] LABS: Troponin I < 0.02 ng/mL (0.0-0.045)
[2018-07-25] MEDS ORDERED: ALBUTEROL INHALER 60 PUFF/8 GM IH PRN (15:18)
[2018-07-25] MEDS ORDERED: AMLODIPINE 10 MG TAB PO ONE (18:00)
[2018-07-25] MEDS: HYDRALAZINE HCL 20 MG/ML VIAL IV PRN (18:03)
[2018-07-25] MEDS ORDERED: ATORVASTATIN 40 MG TAB PO SCH (21:00)
[2018-07-25] MEDS: HYDRALAZINE HCL 10 MG TABLET PO SCH (21:13)
[2018-07-25] MEDS: ACETAMINOPHEN 500 MG TAB PO PRN (21:13)
[2018-07-25] MEDS: METOPROLOL TAR 50 MG TAB PO SCH (21:14)
[2018-07-26] MEDS: HYDRALAZINE HCL 20 MG/ML VIAL IV PRN (01:15)
[2018-07-26] MEDS: ACETAMINOPHEN 500 MG TAB PO PRN ×2 (05:07→09:36)
[2018-07-26 05:11] LABS: Absolute Lymphocytes (CBC) 2.4 K/uL (0.7-4.9); Absolute Monocytes 0.6 K/uL (0.1-1.3); Absolute Neutrophil 4.1 K/uL (1.8-8.0); Basophils % 0.7 % (0-1.3); Eosinophils % 0.6 % (0-4.4); Hematocrit 39.4 % (36.0-45.0); MCH 29.5 pg (27.0-35.0); MCV 88.7 fL (80-100); MPV 9.2 fL (7.6-11.3); Monocytes % 8.8 % (3.3-12.3); RBC Red Blood Cell Count 4.44 M/uL (3.86-4.86)
[2018-07-26 05:43] LABS: ALT/SGPT 20 U/L (12-78); AST/SGOT 13 U/L (15-37); Albumin 3.4 g/dL (3.4-5.0); Alkaline Phosphatase 62 U/L (45-117); BUN Blood Urea Nitrogen 14 mg/dL (7-18); Bicarbonate 31 mmol/L (21-32); Bilirubin Total 0.3 mg/dL (0.2-1.0); Glucose Level 94 mg/dL (74-106); HDL Cholesterol 47 mg/dL (40-60); LDL Cholesterol, Calculated 93 (<130); Phosphorus 3.2 mg/dL (2.5-4.9); Potassium 3.9 mmol/L (3.5-5.1); Protein, Total 8.6 g/dL (6.4-8.2); Sodium Level 141 mmol/L (136-145); Troponin I < 0.02 ng/mL (0.0-0.045)
[2018-07-26] MEDS ORDERED: REGADENOSON 0.4 MG/5 ML SYR IV ONE (08:02)
[2018-07-26] MEDS ORDERED: ENOXAPARIN 40 MG/0.4 ML SQ SCH (09:00)
[2018-07-26] MEDS ORDERED: ASPIRIN 81 MG CHEWABLE TABLET PO SCH (09:00)
[2018-07-26] MEDS ORDERED: AMLODIPINE 10 MG TAB PO SCH (09:00)
[2018-07-26] MEDS ORDERED: POTASSIUM CL SA 10 MEQ TAB PO ONE (09:00)
[2018-07-26] MEDS: HYDRALAZINE HCL 10 MG TABLET PO SCH (09:32)
[2018-07-26] MEDS: METOPROLOL TAR 50 MG TAB PO SCH (09:33)
--- NOTE | 2018-07-26 09:59 | RAD REPORT ---
EXAM DESCRIPTION: NM - Rest Stress Cardiac Imaging - 07/26/2018 9:44 am CLINICAL HISTORY: Chest pain. COMPARISON: None. TECHNIQUE: The patient was administered approximately 10mCi of Tc 99m Sestamibi prior to resting SPE CT imaging of the heart. The patient was then administered approximately 30 mCi of Tc 99m Sestamibi f ollowing exercise or pharmacologic stress. Multiplanar SPECT images were reviewed. FINDINGS: There is uniformity of radiotracer activity involving the entire left ventricular myocardi um The left ventricular ejection fraction equals 62% IMPRESSION: Negative for a myocardial perfusion defect
[2018-07-26 10:20] VITALS: TEMP 98
[2018-07-26] MEDS ORDERED: IBUPROFEN 400 MG TAB PO ONE (11:05)
[2018-07-26 13:11] VITALS: BP 148/82
--- NOTE | 2018-07-26 16:31 | P.SSS ---
Patient History Date of Service: 07/26/18 Primary Care Provider: None Reason for admission: HTN urgency History of Present Illness: This is a 47-year-old female with significant past medical history of asthma, hypertension who presented to the ED complaining of having some chest discomfort that started about this morning. Patient stated that for past couple of days she has been having some headaches along with the blurry vision and this morning she started noticing some chest discomfort and thus decided to bring herself to the ER. Patient does have a history of high blood pressure and has not been able to control her blood pressure at home. Patient stated that she has family history of dilated cardiomyopathy and her family member has and he and his 24 from having massive heart attack. Patient thus became nervous when she started having chest pain wanted it further checked out. Patient also noted that she has been having some nausea and diarrhea along with the chest discomfort. Denies having any fever however states that she has been noticing some chills as well. No other complaints to offer at this time. In the ER patient still had intermittent chest pain, Quick troponin x1 was negative, EKG was within normal limits, patient was thus referred over to admission for further workup given the strong family history of cardiac disease along with atypical chest pain. Allergies No Known Allergies Allergy (Verified 03/01/14 05:05) Home Medications: Metoprolol Tartrate [Lopressor*] 50 mg PO BID #60 tab 03/04/14 Albuterol Sulfate [Proair Hfa] 1 inh IH Q6HP PRN 07/25/18 - Past Medical/Surgical History Has patient received pneumonia vaccine in the past: No Diabetic: No -: HTN, HYPERLIPIDEMIA, ASTHMA, BRONCHITIS - Family History Brother -: Heart disease - Social History Smoking Status: Never smoker Alcohol use: No CD- Drugs: No Caffeine use: No Place of Residence: Home Review of Systems 10-point ROS is otherwise unremarkable Physical Examination - Vital Signs Temperature: 98.0 F Blood Pressure: 148/82 Pulse: 64 Respirations: 16 Pulse Ox (%): 95 - Physical Exam General: Alert, In no apparent distress HEENT: Atraumatic, PERRLA, Mucous membr. moist/pink, EOMI, Sclerae nonicteric Neck: Supple, 2+ carotid pulse no bruit, No LAD, Without JVD or thyroid abnormality Respiratory: Clear to auscultation bilaterally, Normal air movement Cardiovascular: Regular rate/rhythm, Normal S1 S2 Gastrointestinal: Normal bowel sounds, No tenderness Musculoskeletal: No tenderness Integumentary: No rashes Neurological: Normal gait, Normal speech, Normal strength at 5/5 x4 extr, Normal tone, Normal affect Lymphatics: No axilla or inguinal lymphadenopathy - Diagnosis (Problem(s)) (1) Hypertensive urgency Onset Date: 07/26/18 Current Visit: Yes Status: Acute Plan: Resolved -DC with Amlodipine 10mg, Hydralazine 10mg BID and Metoprolol (2) Chest pain Onset Date: 07/26/18 Current Visit: Yes Status: Acute Plan: Resolved. ECHO and Stress negative (3) Obesity (BMI 35.0-39.9 without comorbidity) Onset Date: 07/26/18 Current Visit: Yes Status: Chronic Treatment Summary: - Disposition Disposition: ROUTINE DISCHARGE Condition: GOOD Diet: Regular Activity: Ad michael
--- NOTE | 2018-07-27 06:26 | CON ---
Date of Consultation: 07/26/2018 Reason For Consultation: Chest pain and hypertension. History Of Present Illness: Ms. Astorga is a 47-year-old white woman who has no previous cardiac hist ory. She has a history of hypertension and asthma. She came in with really flu-like symptoms, sharp chest pain, stabbing, worse with breathing. She was found to be very hypertensive with systolic ove r 200. Ms. Astorga is supposed to be taking diltiazem and hydrochlorothiazide at home, but she did no t have the money to buy the medication. Denied PND, orthopnea, pedal edema, palpitations, or syncope . So far, she has had a CT angiogram which was negative. She had a negative venous Doppler. Her ch est x-ray is negative. EKG showed LVH. Troponin, CPKs, and MBs are negative. D-dimer was elevated. Review of Systems: Negative. Social History: Negative for tobacco, drugs, or alcohol. Family History: Positive for hypertension. Allergies: NONE. Review of Systems: Negative. Physical Examination: Vital Signs: Stable. Afebrile. HEENT: Negative. Blood pressure elevated on arrival over 200. It is about 180 now. Normal rhythm. Chest: Clear. Cardiac: Revealed a regular rhythm and rate, with S4 gallops. Abdomen: Benign. Extremities: Revealed no clubbing, cyanosis, or edema. Impression And Plan: Atypical chest pain, pleuritic, probably secondary to viral syndrome. D-dimer was elevated, but she does not have a pulmonary embolus by CT angiogram or venous Doppler. She has v michael poorly controlled hypertension, and she needs to get back on medication other than dil tiazem with diuretics or a beta-gabriela with a diuretic. I think she would do better with a calcium channel gabriela, but the combination with amlodipine and hydrochlorothiazide may be very reasonable. She has an echocardiogram and Lexiscan pending today, and we will make a decision after these are ba ck. STACEY/PETTY Voice ID: [id number] Report ID: [id number]
--- NOTE | 2018-07-27 08:39 | ECHO ---
HEIGHT: 5 ft 2 in WEIGHT: 326 lb 6 oz DATE OF STUDY: 07/26/[address]: Karlos Zelaya MD 2-DIMENSIONAL: YES M.MODE: YES DOPPLER: YES COLOR FLOW: YES TDS: YES PORTABLE: NO DEFINITY: NO BUBBLE STUDY: NO DIAGNOSIS: CHEST PAIN, HYPERTENSION CARDIAC HISTORY: CATHERIZATION: NO SURGERY: NO PROSTHETIC VALVE: NO PACEMAKER: NO MEASUREMENTS (cm) DIASTOLIC (NORMALS) SYSTOLIC (NORMALS) IVSd 1.5 (0.6-1.2) LA Diam 3.3 (1.9-4.0) LVEF 53% LVIDd 3.8 (3.5-5.7) LVIDs 2.8 (2.0-3.5) %FS 27% LVPWd 1.6 (0.6-1.2) Ao Diam 2.6 (2.0-3.7) 2 DIMENSIONAL ASSESSMENT: RIGHT ATRIUM: NORMAL LEFT ATRIUM: NORMAL RIGHT VENTRICLE: NORMAL LEFT VENTRICLE: LEFT VENTRICULAR HYPERTROPHY TRICUSPID VALVE: NORMAL MITRAL VALVE: NORMAL PULMONIC VALVE: NORMAL AORTIC VALVE: NORMAL PERICARDIAL EFFUSION: NONE AORTIC ROOT: NORMAL LEFT VENTRICULAR WALL MOTION: NORMAL EJECTION FRACTION. DOPPLER/COLOR FLOW: NORMAL COMMENTS: CONCENTRIC LEFT VENTRICULAR HYPERTROPHY. DECREASED LEFT VENTRICULAR COMPLIANCE. NORMAL LEFT VENTRICULAR EJECTION FRACTION. NO EFFUSION. TECHNOLOGIST: Deonte HENSLEY
--- NOTE | 2018-07-27 09:20 | TREADPHA ---
DX: CHEST PAIN Date of Study: 07/26/18 Ht: 5 2 Wt: 326 lb 6 oz Consulting Physician: MADELYN MEDICATIONS: TYLENOL, VENTOLIN, INHALER, NORVASC, LIPITOR, LOVENOX, APRESOLINE, LOPRESSOR, ZOFRAN, POTASSIUM CHLORIDE. HISTORY: 47 YEAR OLD FEMALE WITH COMPLAINTS OF CHEST PAIN. HISTORY OF HYPERTENSION AND ASTHMA PHYSICIAL EXAMINATION: RESTING B.P.: 161/87 RESTING H.R.: 84 RESTING EKG: NORMAL SINUS RHYTHM, NORMAL ST PROTOCOL: LEXISCAN EXERCISE TIME: 3:30 B.P. AT PEAK STRESS: 144/74 IMPRESSION: LEXISCAN INJECTED. CARDIOLITE INJECTED PER PROTOCOL. SEE NUCLEAR MEDICINE REPORT. NO CHEST PAIN. NO VENTRICULAR TACHYCARDIA. NO SUPRA VENTRICULAR TACHYCARDIA.
== END 2018-07-26 16:28 | disposition home or self-care (01) ==
LOC: ER 08:24 → ERHOLD 09:29 → 2ND 12:34
PROVIDERS: ADMIT Family Medicine; ATTEND Family Medicine
DX: I16.0 Hypertensive urgency (principal); R07.9 Chest pain, unspecified; E66.9 Obesity, unspecified; Z68.43 Body mass index [BMI] 50.0-59.9, adult; J45.909 Unspecified asthma, uncomplicated
CPT/HCPCS: 36415; 71045; 71275; 78452; 80048; 80053; 80061; 80076; 81003; 81025; 82550; 82553; 82607; 83036; 83690; 83735; 83880; 84100; 84443; 84484; 85025; 85379; 85610; 85730; 93005; 93017; 93306; 93970; 96361; 96372; 96374; 96375; 99285; A9500; G0378; J0360; J1650; J2405; J2785; J7030; Q9967

== ENCOUNTER 2022-01-14 16:55 | Inpatient (IN) | payer SELFPAY ==
--- OUTSIDE RECORDS SUMMARY | 2022-01-14 17:09 | XMS REPORT | Continuity of Care Document ---
:1970 Author Organization [facility] t Address [address] [place] [address] Care Team Providers Name Role Phone SHIELA Primary Care Physician Unavailable SIVAKUMAR Attending Clinician Unavailable Justice MADDEN Attending Clinician Unavailable Justice RAMACHANDRAN Attending Clinician Unavailable Jj BURNHAM Attending Clinician DANNY Attending Clinician Unavailable Bolivar GONZALEZ Attending Clinician Danny BOLAND Attending Clinician Catracho MILLIGAN Attending Clinician Unavailable Catracho Milligan MD Attending Clinician Matilde RN, L Attending Clinician Unavailable Doctor Unassigned, Name Attending Clinician Unavailable Chano GONZALEZ, Justice Attending Clinician Kisha BHATT Attending Clinician Unavailable Care, Primary Attending Clinician Unavailable Shiela BARTON Attending Clinician SHIELA Attending Clinician Unavailable Sivakumar GONZALEZ Attending Clinician OMAR Attending Clinician Unavailable Lab, Fam Pob I Attending Clinician Unavailable Omar BARTON Attending Clinician Pc, Echo Room 1 - Attending Clinician Unavailable DANYN Admitting Clinician Unavailable Danny BOLAND Admitting Clinician Catracho MILLIGAN Admitting Clinician Unavailable Payers Payer Name Policy Type Policy Number Effective Date Expiration Date Catracho walsh [employer] [id number] 2020 00:00:00 Problems Condition Condition Condition Status Onset Resolution Last Treating Co mments Source Name Details Category Date Date Treatment Clinician Date Inflammati Inflammati Disease Active 2020-11 U nivers on of on of 2-10 ity of transplant transplant 00:00: Ralf cantu ed ed Medical pancreas pancreas Branch Pancreatit Pancreatit Disease Active 2020-11 U nivers is, is, 2-09 ity of unspecifie [place] Medical pancreatit pancreatit Br anch is type is type Well woman Well woman Disease Active U nivers exam exam 05-27 ity of 00:00: [place] [facility] Heavy Heavy Disease Active Univers menses menses 05-27 ity of 00:00: [address] Asthma Asthma Disease Active 2014-11 Univers 12-05 ity of 00:00: [address] Branch H/O tubal H/O tubal Disease Active 2014-11 Uni vers ligation ligation 12-05 ity of 00:00: [address] Morbid Morbid Disease Active Univers obesity obesity 11-24 ity of 00:00: [address] Hypertensi Hypertensi Disease Active U nivers on on 11-24 ity of 00:00: [address] Allergies, Adverse Reactions, Alerts Allergy Allergy Status Severity Reaction(s) Onset Inactive Treating Comm ents Source Name Type Date Date Clinician NO KNOWN Drug Active Univers ALLERGIE Class ity of S [place] [facility] Social History Social Habit Start Date Stop Date Quantity Comments Source Exposure to Not sure [facility]-CoV-2 [facility] (event) [place] Alcohol intake 2021-10-30 2021-10-30 [facility] 00:00:00 00:00:00 non-drinker of [facility] alcohol [place] (finding) Education 2021-10-29 2021-10-[address] [place] [address] 00:00:00 00:00:00 [place] [facility] Tobacco use and 2014-10-31 2014-10-31 Never used Universit y of exposure 00:00:00 00:00:00 [place] [facility] Sex [birth year] Universit y of 00:00:00 00:00:00 [place] [facility] Smoking Status Start Date Stop Date Source Never smoker [facility] Medications Ordered Filled Start Stop Current Ordering Indication Dosage Frequency Signature Comments Components Source Medication Medication Date Date Medication? Clinician (SIG) Name Name diphenhydra 2020-11 Yes Take by Un [place] mine HCl 2-12 mouth ity of (ALLERGY 16:07: daily. [place] RELIEF 50 Medical ORAL) Branch aspirin 81 2020-11 Yes 81mg Take 81 mg U nivers mg chewable 2-12 by mouth ity of tablet 16:07: daily. [address] vitamin B 2020-11 Yes Take by Univ ers complex (B 2-12 mouth ity of COMPLEX-VIT 16:07: daily. [facility] s LEON B12 50 Medical ORAL) Branch diphenhydra 2020-11 Yes Take by Un [place] mine HCl 2-12 mouth ity of (ALLERGY 16:07: daily. [place] RELIEF 50 Medical ORAL) Branch aspirin 81 2020-11 Yes 81mg Take 81 mg U nivers mg chewable 2-12 by mouth ity of tablet 16:07: daily. [address] vitamin B 2020-11 Yes Take by Univ ers complex (B 2-12 mouth ity of COMPLEX-VIT 16:07: [facility]. [facility] Medical [facility]) Branch polyethylen 2020-11 Yes 17g 17 g, Unive rs e glycol 2-12 Oral, BID, ity o f 3350 powder 05:30: First dose [place] 17 g 00 on [facility] 10/31/21 Branch at 2330, Until Discontinu ed, Routine bisacodyL 2020-11 Yes 10mg 10 mg, Univer s (DULCOLAX) 2-12 Rectal, ity of suppository 05:27: QDAILYPRN, [place] 10 mg 53 Starting Medical on [facility] Branch 10/31/21 at 2327, Until Discontinu ed, Routine, Constipati on docusate 2020-11- Yes [id number] 100mg Take 1 Univers 100 mg 2-12 12-28 capsule by ity of capsule 00:00: 05:59 mouth 2 [place] 00 :00 (two) Medical times Branch daily for 15 days. docusate 2020-11- Yes [id number] 100mg Take 1 Univers 100 mg 2-12 12-28 capsule by ity of capsule 00:00: 05:59 mouth 2 [place] 00 :00 (two) Medical times Branch daily for 15 days. citalopram 2020-11 Yes 20mg 20 mg, Unive rs (CELEXA) 2-10 Oral, ity of tablet 20 15:00: DAILY, [place] mg 00 First dose Medical on [facility] 10/30/21 at 0900, Until Discontinu ed, Routine losartan 2020-11 Yes 100mg 100 mg, Unive rs (COZAAR) 2-10 Oral, ity of tablet 100 15:00: DAILY, [place] mg 00 First dose Medical on [facility] 10/30/21 at 0900, Until Discontinu ed, Routine aspirin 2020-11 Yes 81mg 81 mg, Univers chewable 2-10 Oral, ity of tablet 81 15:00: DAILY, [place] mg 00 First dose Medical on [facility] 10/30/21 at 0900, Until Discontinu ed, Routine amLODIPine 2020-11 Yes 10mg 10 mg, Unive rs (NORVASC) 2-10 Oral, ity of tablet 10 15:00: DAILY, [place] mg 00 First dose Medical on Tue [place] 10/30/21 at 0900, Until Discontinu ed, Routine ondansetron 2020-11 Yes 4mg 4 mg, Slow Univers (ZOFRAN 2-10 IV Push, ity of (PF)) 02:25: [place], [place] injection 4 58 Starting Medi deysi mg on [facility] 10/29/21 at 2024, Until Discontinu ed, Routine, Nausea and Vomiting (N/V) morpHINE 2020-11 Yes 2mg 2 mg, Slow Uni vers injection 2 2-10 IV Push, ity of mg 02:25: Q4HPRN, [place] 39 Starting Medical on [facility] 10/29/21 at 2024, Until Discontinu ed, Routine, Pain (scale 7-10) traMADoL 2020-11 Yes 50mg 50 mg, Univers (ULTRAM) 2-10 Oral, ity of tablet 50 02:25: Q6HPRN, [place] mg 35 Starting Medical on [facility] 10/29/21 at 2024, Until Discontinu ed, Routine, Pain (scale 4-6) acetaminoph 2020-11 Yes 650mg 650 mg, Un moises en 2-10 Oral, ity of (TYLENOL) 02:25: [place], [place] tablet 650 31 Starting Medic al mg on [facility] 10/29/21 at 2024, Until Discontinu ed, Routine, Pain (scale 1-3) lactated 2020-11 No 1000mL at 150 Univ ers ringers IV 2-10 12-12 mL/hr, ity of infusion 02:15: 01:04 1,000 mL, [place] as 1,000 mL 00 :08 IV Medical Infusion, Branch CONTINUOUS , Starting on [facility] 10/29/21 at 2015, Until 10/31/21 at 1904, Routine docusate 2020-11 Yes 100mg 100 mg, Unive rs (COLACE) 2-10 Oral, BID, ity o f capsule 100 02:00: First dose [place] mg 00 on [facility] 10/29/21 at Branch 1999, Until Discontinu ed, Routine hydrALAZINE 2020-11 Yes 10mg 10 mg, Univ ers (APRESOLINE 2-10 Oral, BID, it y of ) tablet 10 02:00: First dose [place] mg 00 on [facility] 10/29/21 at Branch 1999, Until Discontinu ed, Routine fluticasone 2020-11 Yes 1{puff} 1 Puff, Univers propion-tigist 2-10 Inhalation it y of meteroL 02:00: , Q12H, [place] (ADVAIR) 00 First dose Medic al 250-50 on [facility] mcg/dose 10/29/21 at inhalation 1999, disk 1 Puff Until Discontinu ed, Routine
Use approved by (Faculty and pager): ADC PROVIDER labetaloL 2020-11 Yes 100mg 100 mg, Univ ers (NORMODYNE) 2-10 Oral, ity of tablet 100 02:00: Q12H, [place] mg 00 First dose Medical on [facility] 10/29/21 at 2000, Until Discontinu ed NaCl 0.9% 2020-11 No 1000mL at 100 Uni vers (NS) IV 2-10 12-10 mL/hr, ity of infusion 00:00: 01:11 [place]venou [place] 1,000 mL 00 :05 s, Medical CONTINUOUS [place] , Starting on [facility] 10/29/21 at 1800, Until [facility] 10/29/21 at 1911, Routine enoxaparin 2020-11 Yes 40mg 40 mg, Unive rs (LOVENOX) 2-09 Subcutaneo ity of injection 23:00: [place], DAILY, [place] 40 mg 00 First dose Medical on [facility] 10/29/21 at 1700, Until Discontinu ed, Routine cyclobenzap 2020-11 Yes 10mg 10 mg, Univ ers rine 2-09 Oral, ity of (FLEXERIL) 21:27: TIDPRN, [place] tablet 10 34 Starting Medica l mg on [facility] Branch 10/29/21 at 1527, Until Discontinu ed, Routine, Muscle Spasms baclofen 2020-11 Yes 10mg 10 mg, Univers (LIORESAL) 2-09 Oral, ity of tablet 10 21:26: TIDPRN, [place] mg 22 Starting Medical on [facility] Branch 10/29/21 at 1526, Until Discontinu ed, Routine, Pain (scale 7-10) albuterol 2020-11 Yes 2{puff} 2 Puff, Un moises (VENTOLIN) 2 Inhalation ity of inhaler 2 21:26: , Q4HPRN, [place] as Puff 03 Starting Medical on [facility] Branch 10/29/21 at 1526, Until Discontinu ed, Routine, Wheezing, Shortness of Breath iopamidol 2020-11- No [id number] 120mL 120 mL, Univers (ISOVUE 12-30 Intravenou ity o f 370-500 mL) 16:30: 16:22 s, ONCE, 1 [place] injection 00 :00 dose, On Medica l 120 mL [facility] Branch 10/29/21 at 1030, Routine morpHINE 2020-11- No 4mg 4 mg, Slow Un moises injection 4 12-30 IV Push, ity of mg 15:45: 18:58 ONCE, 1 00 :00 dose, On Medical [facility] 10/29/21 at 0945, STAT morpHINE 2020-11- No 4mg 4 mg, Slow Un mo[place] injection 4 12-27 IV Push, ity of mg 07:00: 05:53 ONCE, 1 00 :00 dose, On [facility] Branch 10/26/21 at 0100, STAT hydrALAZINE 2020-11 Yes [id number] 10mg Take 1 Univers 10 mg 2-06 tablet by ity of tablet 00:00: mouth 2 00 (two) Medical times Branch daily. metoprolol 2020-11 Yes [id number] 50mg Take 1 Univers tartrate 50 2-06 tablet by ity of mg tablet 00:00: mouth 2 00 (two) Medical times Branch daily. amLODIPine 2020-11 Yes [id number] 10mg Take 1 Univers 10 mg 2-06 tablet by ity of tablet 00:00: mouth [place] 00 daily. Medical Branch losartan 2020-11 Yes [id number] 100mg Take 1 U nivers 100 mg 2-06 tablet by ity of tablet 00:00: mouth [place] 00 daily. Medical Branch citalopram 2020-11 Yes [id number] 20mg Take 1 Univers 20 mg 2-06 tablet by ity of tablet 00:00: mouth [place] 00 daily. Medical Branch naproxen 2020-11 Yes [id number] 500mg Take 1 U nivers 500 mg EC 2-06 tablet by ity o f tablet 00:00: mouth 2 00 (two) Medical times Branch daily with meals. metoprolol 2020-11 Yes [id number] 50mg Take 1 Univers tartrate 50 2-06 tablet by ity of mg tablet 00:00: mouth (two) Medical times Branch daily. amLODIPine 2020-11 Yes [id number] 10mg Take 1 Univers 10 mg 2-06 tablet by ity of tablet 00:00: mouth [place] 00 daily. Medical Branch losartan 2020-11 Yes [id number] 100mg Take 1 U nivers 100 mg 2-06 tablet by ity of tablet 00:00: mouth [place] 00 daily. Medical Branch metoprolol 2020-11 Yes [id number] 50mg Take 1 Univers tartrate 50 2-06 tablet by ity of mg tablet 00:00: mouth 00 (two) Medical times Branch daily. amLODIPine 2020-11 Yes [id number] 10mg Take 1 Univers 10 mg 2-06 tablet by ity of tablet 00:00: mouth [place] 00 daily. Medical Branch losartan 2020-11 Yes [id number] 100mg Take 1 U nivers 100 mg 2-06 tablet by ity of tablet 00:00: mouth [place] 00 daily. Medical Branch hydrALAZINE 2020-11- No [id number] 10mg Take 1 Univers 10 mg 2-06 12-12 tablet by ity of tablet 00:00: 00:00 mouth 2 [place] 00 :00 (two) Medical times Branch daily. citalopram 2020-11- No [id number] 20mg Take 1 Univers 20 mg 2-06 12-12 tablet by ity of tablet 00:00: 00:00 mouth 00 :00 daily. Medical Branch naproxen 2020-11- No [id number] 500mg Take 1 Univers 500 mg EC 12-27 tablet by ity of tablet 00:00: 00:00 mouth 2 00 :00 (two) Medical times Branch daily with meals. methylPREDN 2020- No [id number] 80mg U nivers ISolone 07-31 ity of acetate 17:30: 16:18 [place] (DEPO-MEDRO 00 :00 Medical L) 80 mg/mL Branch 80 mg in lidocaine 1% (XYLOCAINE) 4 mL injection methylPREDN 2020- No [id number] 80mg 80 mg, Univers ISolone 07-31 Intramuscu ity o f acetate 17:30: 16:18 lar, ONCE, [place] (DEPO-MEDRO 00 :00 1 dose, Medic al L) 80 mg/mL Fri Branch 80 mg in 07/31/21 at lidocaine 1230, 4 mL 1% (XYLOCAINE) 4 mL injection methylPREDN 2020- No [id number] 80mg U nivers ISolone 07-31 ity of acetate 17:30: 16:18 [place] (DEPO-MEDRO 00 :00 Medical L) 80 mg/mL Branch 80 mg in lidocaine 1% (XYLOCAINE) 4 mL injection methylPREDN 2020- No [id number] 80mg 80 mg, Univers ISolone 07-31 Intramuscu ity o f acetate 17:30: 16:18 lar, ONCE, [place] (DEPO-MEDRO 00 :00 1 dose, Medic al L) 80 mg/mL Fri Branch 80 mg in 07/31/21 at lidocaine 1230, 4 mL 1% (XYLOCAINE) 4 mL injection methylPREDN 2020- No [id number] 80mg U nivers ISolone 07-31 ity of acetate 17:30: 16:18 [place] (DEPO-MEDRO 00 :00 Medical L) 80 mg/mL Branch 80 mg in lidocaine 1% (XYLOCAINE) 4 mL injection methylPREDN 2020- No [id number] 80mg 80 mg, Univers ISolone 07-31 Intramuscu ity o f acetate 17:30: 16:18 lar, ONCE, [place] (DEPO-MEDRO 00 :00 1 dose, Medic al L) 80 mg/mL Fri Branch 80 mg in 07/31/21 at lidocaine 1230, 4 mL 1% (XYLOCAINE) 4 mL injection methylPREDN 2020- No [id number] 80mg U nivers ISolone 07-31 ity of acetate 17:30: 16:18 [place] (DEPO-MEDRO 00 :00 Medical L) 80 mg/mL Branch 80 mg in lidocaine 1% (XYLOCAINE) 4 mL injection methylPREDN 0 2020- No [id number] 80mg 80 mg, Univers ISolone 07-31 Intramuscu ity o f acetate 17:30: 16:18 lar, ONCE, [place] (DEPO-MEDRO 00 :00 1 dose, Medic al L) 80 mg/mL Fri Branch 80 mg in 07/31/21 at lidocaine 1230, 4 mL 1% (XYLOCAINE) 4 mL injection naproxen 2020-0 Yes [id number] 500mg Take 1 U nivers 500 mg 7-29 tablet by ity of tablet 00:00: mouth (two) Medical times Branch daily with meals. cyclobenzap 2020-0 Yes [id number] 10mg Take 1 Univers rine 10 mg 7-29 tablet by ity of tablet 00:00: mouth 3 (three) Medical times Branch daily as needed for Muscle Spasms. naproxen 2020-0 Yes [id number] 500mg Take 1 U nivers 500 mg 7-29 tablet by ity of tablet 00:00: mouth 2 (two) Medical times Branch daily with meals. cyclobenzap 2020-0 Yes [id number] 10mg Take 1 Univers rine 10 mg 7-29 tablet by ity of tablet 00:00: mouth 3 (three) Medical times Branch daily as needed for Muscle Spasms. naproxen 1-0 Yes [id number] 500mg Take 1 U nivers 500 mg 7-29 tablet by ity of tablet 00:00: mouth 2 (two) Medical times Branch daily with meals. cyclobenzap 2020-0 Yes [id number] 10mg Take 1 Univers rine 10 mg 7-29 tablet by ity of tablet 00:00: mouth 3 (three) Medical times Branch daily as needed for Muscle Spasms. naproxen 1-0 Yes [id number] 500mg Take 1 U nivers 500 mg 7-29 tablet by ity of tablet 00:00: mouth 2 (two) Medical times Branch daily with meals. cyclobenzap 2020-0 Yes [id number] 10mg Take 1 Univers rine 10 mg 7-29 tablet by ity of tablet 00:00: mouth 3 (three) Medical times Branch daily as needed for Muscle Spasms. naproxen 2021-0 Yes [id number] 500mg Take 1 U nivers 500 mg 7-29 tablet by ity of tablet 00:00: mouth 2 (two) Medical times Branch daily with meals. naproxen 2020-0 Yes [id number] 500mg Take 1 U nivers 500 mg 7-29 tablet by ity of tablet 00:00: mouth (two) Medical times Branch daily with meals. cyclobenzap 2020-0 Yes [id number] 10mg Take 1 Univers rine 10 mg 7-29 tablet by ity of tablet 00:00: mouth 3 (three) Medical times Branch daily as needed for Muscle Spasms. cyclobenzap 2020-0 Yes [id number] 10mg Take 1 Univers rine 10 mg 7-29 tablet by ity of tablet 00:00: mouth 3 (three) Medical times Branch daily as needed for Muscle Spasms. naproxen 1-0 Yes [id number] 500mg Take 1 U nivers 500 mg 7-29 tablet by ity of tablet 00:00: mouth (two) Medical times Branch daily with meals. cyclobenzap 1-0 Yes [id number] 10mg Take 1 Univers rine 10 mg 7-29 tablet by ity of tablet 00:00: mouth 3 (three) Medical times Branch daily as needed for Muscle Spasms. naproxen 1-0 Yes [id number] 500mg Take 1 U nivers 500 mg 7-29 tablet by ity of tablet 00:00: mouth 2 (two) Medical times Branch daily with meals. cyclobenzap 2021-0 Yes [id number] 10mg Take 1 Univers rine 10 mg 7-29 tablet by ity of tablet 00:00: mouth 3 (three) Medical times Branch daily as needed for Muscle Spasms. naproxen 1-0 Yes [id number] 500mg Take 1 U nivers 500 mg 7-29 tablet by ity of tablet 00:00: mouth 2 00 (two) Medical times Branch daily with meals. cyclobenzap 2020-0 Yes [id number] 10mg Take 1 Univers rine 10 mg 7-29 tablet by ity of tablet 00:00: mouth 3 00 (three) Medical times Branch daily as needed for Muscle Spasms. naproxen 202-0 Yes [id number] 500mg Take 1 U nivers 500 mg 7-29 tablet by ity of tablet 00:00: mouth 2 (two) Medical times Branch daily with meals. cyclobenzap 2020-0 Yes [id number] 10mg Take 1 Univers rine 10 mg 7-29 tablet by ity of tablet 00:00: mouth 3 (three) Medical times Branch daily as needed for Muscle Spasms. naproxen 2020-0 Yes [id number] 500mg Take 1 U nivers 500 mg 7-29 tablet by ity of tablet 00:00: mouth 2 (two) Medical times Branch daily with meals. cyclobenzap 2020-0 Yes [id number] 10mg Take 1 Univers rine 10 mg 7-29 tablet by ity of tablet 00:00: mouth 3 00 (three) Medical times Branch daily as needed for Muscle Spasms. aspirin 81 2020-0 Yes 81mg Take 81 mg U nivers mg chewable 7-08 by mouth ity of tablet 18:55: daily. [address] Branch vitamin B 202-0 Yes Take by Univ ers complex (B 7-08 mouth ity of COMPLEX-VIT 18:55: [facility]. [facility]12 [facility] Medical ORAL) Branch aspirin 81 2020-0 Yes 81mg Take 81 mg U nivers mg chewable 7-08 by mouth ity of tablet 18:55: daily. [address] vitamin B 202-0 Yes Take by Univ ers complex (B 7-08 mouth ity of COMPLEX-VIT 18:55: [facility]. [facility] B12 41 Medical ORAL) Branch aspirin 81 202-0 Yes 81mg Take 81 mg U nivers mg chewable 7-08 by mouth ity of tablet 18:55: daily. [address] Branch vitamin B Yes Take by Univ ers complex (B 7-08 mouth ity of COMPLEX-VIT 18:55: daily. Jordy catracho LEON B12 41 Medical ORAL) Branch aspirin 81 2020-0 Yes 81mg Take 81 mg U nivers mg chewable 7-08 by mouth ity of tablet 18:55: daily. [address] Branch vitamin B 2020- Yes Take by Univ ers complex (B 7-08 mouth ity of COMPLEX-VIT 18:55: daily. [facility] LEON B12 41 Medical ORAL) Branch aspirin 81 2020-0 Yes 81mg Take 81 mg U nivers mg chewable 7-08 by mouth ity of tablet 18:55: daily. [address] vitamin B Yes Take by Univ ers complex (B 7-08 mouth ity of COMPLEX-VIT 18:55: daily. [facility] s LEON B12 41 Medical ORAL) Branch aspirin 81 2020-0 Yes 81mg Take 81 mg U nivers mg chewable 7-08 by mouth ity of tablet 18:55: daily. [address] Branch vitamin B Yes Take by Univ ers complex (B 7-08 mouth ity of COMPLEX-VIT 18:55: daily. [facility] catracho LEON B12 41 Medical ORAL) Branch aspirin 81 2020-0 Yes 81mg Take 81 mg U nivers mg chewable 7-08 by mouth ity of tablet 18:55: daily. [address] Branch vitamin B 2020- Yes Take by Univ ers complex (B 7-08 mouth ity of COMPLEX-VIT 18:55: daily. [facility] catracho LEON B12 41 Medical ORAL) Branch aspirin 81 2020-0 Yes 81mg Take 81 mg U nivers mg chewable 7-08 by mouth ity of tablet 18:55: daily. [address] Branch vitamin B 2020- Yes Take by Univ ers complex (B 7-08 mouth ity of COMPLEX-VIT 18:55: [facility]. [facility] Branch aspirin 81 2020-0 Yes 81mg Take 81 mg U nivers mg chewable 7-08 by mouth ity of tablet 18:55: daily. [place] 41 Medical Branch vitamin B Yes Take by Univ ers complex (B 7-08 mouth ity of COMPLEX-VIT 18:55: daily. Sowmya hayden LEON B12 41 Medical ORAL) Branch aspirin 81 2020- Yes 81mg Take 81 mg U nivers mg chewable 7-08 by mouth ity of tablet 13:55: daily. [address] Branch vitamin B Yes Take by Univ ers complex (B 7-08 mouth ity of COMPLEX-VIT 13:55: daily. Sowmya hayden LEON B12 41 Medical ORAL) Branch aspirin 81 Yes 81mg Take 81 mg U nivers mg chewable 7-08 by mouth ity of tablet 13:55: daily. [address] Branch vitamin B Yes Take by Univ ers complex (B 7-08 mouth ity of COMPLEX-VIT 13:55: daily. Sowmya hayden LEON B12 41 Medical ORAL) Branch aspirin 81 2020- Yes 81mg Take 81 mg U nivers mg chewable 7-08 by mouth ity of tablet 13:55: daily. [address] Branch vitamin B Yes Take by Univ ers complex (B 7-08 mouth ity of COMPLEX-VIT 13:55: daily. Sowmya hayden LEON B12 41 Medical ORAL) Branch aspirin 81 Yes 81mg Take 81 mg U nivers mg chewable 7-08 by mouth ity of tablet 13:55: daily. [address] Branch vitamin B Yes Take by Univ ers complex (B 7-08 mouth ity of COMPLEX-VIT 13:55: daily. Sowmya hayden LEON B12 41 Medical ORAL) Branch aspirin 81 2020-0 Yes 81mg Take 81 mg U nivers mg chewable 7-08 by mouth ity of tablet 13:55: daily. [address] Branch vitamin B Yes Take by Univ ers complex (B 7-08 mouth ity of COMPLEX-VIT 13:55: daily. Sowmya hayden LEON B12 41 Medical ORAL) Branch bromphenira Yes [id number] 5mL Take 5 mL Univers mine-pseudo 7-08 by mouth 4 it y of ephedrine-D 00:00: (four) Sowmya Levin (BROMFED 00 times Medical DM) 2-30-10 daily as Bran ch mg/5 mL needed for syrup Congestion /Allergies or Cough. albuterol Yes [id number] 2{puff} Inhale 2 Univers (PROAIR 7-08 Puffs ity of HFA) 90 00:00: every 4 [place] mcg/actuati 00 (four) Medica l on inhaler hours as Branc h needed for Wheezing or Shortness of Breath. Use 1 puff by mouth every 4 to 6 hours as needed for wheezing fluticasone 0 Yes [id number] 1{puff} Inhale 1 Univers propion-tigist 7-08 Puff every it y of meteroL 00:00: 12 [place] (ADVAIR 00 (twelve) Medical DISKUS) hours. Branch 250-50 mcg/dose inhalation disk carvedilol 0 Yes [id number] 80mg Take 1 U nivers (COREG CR) 7-08 capsule by ity of 80 mg 24 hr 00:00: mouth [place] capsule 00 daily. Medical Branch bromphenira 0 Yes [id number] 5mL Take 5 mL Univers mine-pseudo 7-08 by mouth 4 it y of ephedrine-D 00:00: (four) [place] (BROMFED 00 times Medical DM) 2-30-10 daily as Bran ch mg/5 mL needed for syrup Congestion /Allergies or Cough. albuterol Yes [id number] 2{puff} Inhale 2 Univers (PROAIR 7-08 Puffs ity of HFA) 90 00:00: every 4 [place] mcg/actuati 00 (four) Medica l on inhaler hours as Branc h needed for Wheezing or Shortness of Breath. Use 1 puff by mouth every 4 to 6 hours as needed for wheezing fluticasone 2020-0 Yes [id number] 1{puff} Inhale 1 Univers propion-tigist 7-08 Puff every it y of meteroL 00:00: 12 [place] (ADVAIR 00 (twelve) Medical DISKUS) hours. Branch 250-50 mcg/dose inhalation disk carvedilol 0 Yes [id number] 80mg Take 1 U nivers (COREG CR) 7-08 capsule by ity of 80 mg 24 hr 00:00: mouth [place] capsule 00 daily. Medical Branch bromphenira 2020-0 Yes [id number] 5mL Take 5 mL Univers mine-pseudo 7-08 by mouth 4 it y of ephedrine-D 00:00: (four) [place] (BROMFED 00 times Medical DM) 2-30-10 daily as Bran ch mg/5 mL needed for syrup Congestion /Allergies or Cough. albuterol Yes [id number] 2{puff} Inhale 2 Univers (PROAIR 7-08 Puffs ity of HFA) 90 00:00: every 4 [place] mcg/actuati 00 (four) Medica l on inhaler hours as Branc h needed for Wheezing or Shortness of Breath. Use 1 puff by mouth every 4 to 6 hours as needed for wheezing fluticasone Yes [id number] 1{puff} Inhale 1 Univers propion-tigist 7-08 Puff every it y of meteroL 00:00: 12 [place] (ADVAIR 00 (twelve) Medical DISKUS) hours. Branch 250-50 mcg/dose inhalation disk carvedilol Yes [id number] 80mg Take 1 U nivers (COREG CR) 7-08 capsule by ity of 80 mg 24 hr 00:00: mouth [place] capsule 00 daily. Medical Branch bromphenira Yes [id number] 5mL Take 5 mL Univers mine-pseudo 7-08 by mouth 4 it y of ephedrine-D 00:00: (four) [place] M (BROMFED 00 times Medical DM) 2-30-10 daily as Bran ch mg/5 mL needed for syrup Congestion /Allergies or Cough. albuterol Yes [id number] 2{puff} Inhale 2 Univers (PROAIR 7-08 Puffs ity of HFA) 90 00:00: every 4 [place] mcg/actuati 00 (four) Medica l on inhaler hours as Branc h needed for Wheezing or Shortness of Breath. Use 1 puff by mouth every 4 to 6 hours as needed for wheezing fluticasone 0 Yes [id number] 1{puff} Inhale 1 [facility] propion-tigist 7-08 Puff every it y of meteroL 00:00: 12 [place] (ADVAIR 00 (twelve) Medical DISKUS) hours. Branch 250-50 mcg/dose inhalation disk carvedilol 0 Yes [id number] 80mg Take 1 [facility] n[facility] (COREG CR) 7-08 capsule by ity of 80 mg 24 hr 00:00: mouth [place] capsule 00 daily. Medical Branch bromphenira Yes [id number] 5mL Take 5 mL [facility] mine-pseudo 7-08 by mouth 4 it y of ephedrine-D 00:00: (four[place] (BROMFED 00 times Medical DM) 2-30-10 daily as Bran ch mg/5 mL needed for syrup Congestion /Allergies or Cough. albuterol Yes [id number] 2{puff} Inhale 2 [facility] (PROAIR 7-08 Puffs ity of HFA) 90 00:00: every 4 [place] mcg/actuati 00 (four) Medica l on inhaler hours as Branc h needed for Wheezing or Shortness of Breath. Use 1 puff by mouth every 4 to 6 hours as needed for wheezing fluticasone Yes [id number] 1{puff} Inhale 1 [facility] propion-tigist 7-08 Puff every it y of meteroL 00:00: 12 [place] (ADVAIR (twelve) Medical DISKUS) hours. Branch 250-50 mcg/dose inhalation disk carvedilol Yes [id number] 80mg Take 1 [facility] n[facility] (COREG CR) 7-08 capsule by ity of 80 mg 24 hr 00:00: mouth [place] capsule 00 daily. Medical Branch bromphenira Yes [id number] 5mL Take 5 mL [facility] mine-pseudo 7-08 by mouth 4 it y of ephedrine-D 00:00: (four) [place] (BROMFED 00 times Medical DM) 2-30-10 daily as Bran ch mg/5 mL needed for syrup Congestion /Allergies or Cough. albuterol Yes [id number] 2{puff} Inhale 2 [facility] (PROAIR 7-08 Puffs ity of HFA) 90 00:00: every 4 [place] mcg/actuati 00 (four) Medica l on inhaler hours as Branc h needed for Wheezing or Shortness of Breath. Use 1 puff by mouth every 4 to 6 hours as needed for wheezing fluticasone 0 Yes [id number] 1{puff} Inhale 1 [facility] propion-tigist 7-08 Puff every it y of meteroL 00:00: 12 [place] (ADVAIR 00 (twelve) Medical DISKUS) hours. Branch 250-50 mcg/dose inhalation disk carvedilol 2020-0 Yes [id number] 80mg Take 1 [facility] n[facility] (COREG CR) 7-08 capsule by ity of 80 mg 24 hr 00:00: mouth [place] capsule 00 daily. Medical Branch bromphenira 0 Yes [id number] 5mL Take 5 mL [facility] mine-pseudo 7-08 by mouth 4 it y of ephedrine-D 00:00: (four) [place] (BROMFED 00 times Medical DM) 2-30-10 daily as Bran ch mg/5 mL needed for syrup Congestion /Allergies or Cough. albuterol Yes [id number] 2{puff} Inhale 2 [facility] (PROAIR 7-08 Puffs ity of HFA) 90 00:00: every 4 [place] mcg/actuati 00 (four) Medica l on inhaler hours as Branc h needed for Wheezing or Shortness of Breath. Use 1 puff by mouth every 4 to 6 hours as needed for wheezing fluticasone 0 Yes [id number] 1{puff} Inhale 1 [facility] propion-tigist 7-08 Puff every it y of meteroL 00:00: 12 [place] (ADVAIR 00 (twelve) Medical DISKUS) hours. Branch 250-50 mcg/dose inhalation disk carvedilol 0 Yes [id number] 80mg Take 1 [facility] (COREG CR) 7-08 capsule by ity of 80 mg 24 hr 00:00: mouth [place] capsule 00 daily. Medical Branch bromphenira 0 Yes [id number] 5mL Take 5 mL [facility] mine-pseudo 7-08 by mouth 4 it y of ephedrine-D 00:00: (four) [place] (BROMFED 00 times Medical DM) 2-30-10 daily as Bran ch mg/5 mL needed for syrup Congestion /Allergies or Cough. albuterol 0 Yes [id number] 2{puff} Inhale 2 [facility] (PROAIR 7-08 Puffs ity of HFA) 90 00:00: every 4 [place] mcg/actuati 00 (four) Medica l on inhaler hours as Branc h needed for Wheezing or Shortness of Breath. Use 1 puff by mouth every 4 to 6 hours as needed for wheezing fluticasone 2020-0 Yes [id number] 1{puff} Inhale 1 [facility] propion-tigist 7-08 Puff every it y of meteroL 00:00: 12 [place] (ADVAIR 00 (twelve) Medical DISKUS) hours. Branch 250-50 mcg/dose inhalation disk bromphenira 2020-0 Yes [id number] 5mL Take 5 mL [facility] mine-pseudo 7-08 by mouth 4 it y of ephedrine-D 00:00: (four) [place] (BROMFED 00 times Medical DM) 2-30-10 daily as Bran ch mg/5 mL needed for syrup Congestion /Allergies or Cough. albuterol 2020- Yes [id number] 2{puff} Inhale 2 [facility] (PROAIR 7-08 Puffs ity of HFA) 90 00:00: every 4 [place] mcg/actuati 00 (four) Medica l on inhaler hours as Branc h needed for Wheezing or Shortness of Breath. Use 1 puff by mouth every 4 to 6 hours as needed for wheezing fluticasone 2020-0 Yes [id number] 1{puff} Inhale 1 [facility] propion-tigist 7-08 Puff every it y of meteroL 00:00: 12 [place] (ADVAIR 00 (twelve) Medical DISKUS) hours. Branch 250-50 mcg/dose inhalation disk carvedilol 2020-0 Yes [id number] 80mg Take 1 [facility] (COREG CR) 7-08 capsule by ity of 80 mg 24 hr 00:00: mouth [place] capsule 00 daily. Medical Branch carvedilol 2020-0 Yes [id number] 80mg Take 1 [facility] (COREG CR) 7-08 capsule by ity of 80 mg 24 hr 00:00: mouth [place] capsule 00 daily. Medical Branch bromphenira 2020-0 Yes [id number] 5mL Take 5 mL [facility] mine-pseudo 7-08 by mouth 4 it y of ephedrine-D 00:00: (four) [place] (BROMFED 00 times Medical DM) 2-30-10 daily as Bran ch mg/5 mL needed for syrup Congestion /Allergies or Cough. albuterol 2020-0 Yes [id number] 2{puff} Inhale 2 [facility] (PROAIR 7-08 Puffs ity of HFA) 90 00:00: every 4 [place] mcg/actuati 00 (four) Medica l on inhaler hours as Branc h needed for Wheezing or Shortness of Breath. Use 1 puff by mouth every 4 to 6 hours as needed for wheezing fluticasone 2020-0 Yes [id number] 1{puff} Inhale 1 [facility] propion-tigist 7-08 Puff every it y of meteroL 00:00: 12 [place] (ADVAIR 00 (twelve) Medical DISKUS) hours. Branch 250-50 mcg/dose inhalation disk carvedilol 0 Yes [id number] 80mg Take 1 [facility] (COREG CR) 7-08 capsule by ity of 80 mg 24 hr 00:00: mouth [place] capsule 00 daily. Medical Branch bromphenira 0 Yes [id number] 5mL Take 5 mL [facility] mine-pseudo 7-08 by mouth 4 it y of ephedrine-D 00:00: (four) [place] (BROMFED 00 times Medical DM) 2-30-10 daily as Bran ch mg/5 mL needed for syrup Congestion /Allergies or Cough. albuterol 0 Yes [id number] 2{puff} Inhale 2 [facility] (PROAIR 7-08 Puffs ity of HFA) 90 00:00: every 4 [place] mcg/actuati 00 (four) Medica l on inhaler hours as Branc h needed for Wheezing or Shortness of Breath. Use 1 puff by mouth every 4 to 6 hours as needed for wheezing fluticasone 2020-0 Yes [id number] 1{puff} Inhale 1 [facility] propion-tigist 7-08 Puff every it y of meteroL 00:00: 12 [place] (ADVAIR 00 (twelve) Medical DISKUS) hours. Branch 250-50 mcg/dose inhalation disk carvedilol 2020-0 Yes [id number] 80mg Take 1 [facility] (COREG CR) 7-08 capsule by ity of 80 mg 24 hr 00:00: mouth [place] capsule 00 daily. Medical Branch bromphenira 2020-0 Yes [id number] 5mL Take 5 mL [facility] mine-pseudo 7-08 by mouth 4 it y of ephedrine-D 00:00: (four) [place] (BROMFED 00 times Medical DM) 2-30-10 daily as Bran ch mg/5 mL needed for syrup Congestion /Allergies or Cough. albuterol Yes [id number] 2{puff} Inhale 2 [facility] (PROAIR 7-08 Puffs ity of HFA) 90 00:00: every 4 [place] mcg/actuati 00 (four) Medica l on inhaler hours as Branc h needed for Wheezing or Shortness of Breath. Use 1 puff by mouth every 4 to 6 hours as needed for wheezing fluticasone Yes [id number] 1{puff} Inhale 1 [facility] propion-tigist 7-08 Puff every it y of meteroL 00:00: 12 [place] (ADVAIR 00 (twelve) Medical DISKUS) hours. Branch 250-50 mcg/dose inhalation disk carvedilol Yes [id number] 80mg Take 1 [facility] (COREG CR) 7-08 capsule by ity of 80 mg 24 hr 00:00: mouth [place] capsule 00 daily. Medical Branch bromphenira Yes [id number] 5mL Take 5 mL [facility] mine-pseudo 7-08 by mouth 4 it y of ephedrine-D 00:00: (four) [place] (BROMFED 00 times Medical DM) 2-30-10 daily as Bran ch mg/5 mL needed for syrup Congestion /Allergies or Cough. albuterol Yes [id number] 2{puff} Inhale 2 [facility] (PROAIR 7-08 Puffs ity of HFA) 90 00:00: every 4 [place] mcg/actuati 00 (four) Medica l on inhaler hours as Branc h needed for Wheezing or Shortness of Breath. Use 1 puff by mouth every 4 to 6 hours as needed for wheezing fluticasone Yes [id number] 1{puff} Inhale 1 [facility] propion-tigist 7-08 Puff every it y of meteroL 00:00: 12 [place] (ADVAIR 00 (twelve) Medical DISKUS) hours. Branch 250-50 mcg/dose inhalation disk carvedilol Yes [id number] 80mg Take 1 [facility] (COREG CR) 7-08 capsule by ity of 80 mg 24 hr 00:00: mouth [place] capsule 00 daily. Medical Branch bromphenira Yes [id number] 5mL Take 5 mL [facility] mine-pseudo 7-08 by mouth 4 it y of ephedrine-D 00:00: (four) [place] (BROMFED 00 times Medical DM) 2-30-10 daily as Bran ch mg/5 mL needed for syrup Congestion /Allergies or Cough. albuterol 0 Yes [id number] 2{puff} Inhale 2 [facility] (PROAIR 7-08 Puffs ity of HFA) 90 00:00: every 4 [place] mcg/actuati 00 (four) Medica l on inhaler hours as Branc h needed for Wheezing or Shortness of Breath. Use 1 puff by mouth every 4 to 6 hours as needed for wheezing fluticasone 2020-0 Yes [id number] 1{puff} Inhale 1 [facility] propion-tigist 7-08 Puff every it y of meteroL 00:00: 12 [place] (ADVAIR 00 (twelve) Medical DISKUS) hours. Branch 250-50 mcg/dose inhalation disk carvedilol 2020-0 Yes [id number] 80mg Take 1 [facility] (COREG CR) 7-08 capsule by ity of 80 mg 24 hr 00:00: mouth [place] capsule 00 daily. Medical Branch bromphenira 2020-0 Yes [id number] 5mL Take 5 mL [facility] mine-pseudo 7-08 by mouth 4 it y of ephedrine-D 00:00: (four) [place] (BROMFED 00 times Medical DM) 2-30-10 daily as Bran ch mg/5 mL needed for syrup Congestion /Allergies or Cough. albuterol 0 Yes [id number] 2{puff} Inhale 2 [facility] (PROAIR 7-08 Puffs ity of HFA) 90 00:00: every 4 [place] mcg/actuati 00 (four) Medica l on inhaler hours as Branc h needed for Wheezing or Shortness of Breath. Use 1 puff by mouth every 4 to 6 hours as needed for wheezing fluticasone 2020-0 Yes [id number] 1{puff} Inhale 1 [facility] propion-tigist 7-08 Puff every it y of meteroL 00:00: 12 [place] (ADVAIR 00 (twelve) Medical DISKUS) hours. Branch 250-50 mcg/dose inhalation disk carvedilol 2020-0 Yes [id number] 80mg Take 1 [facility] (COREG CR) 7-08 capsule by ity of 80 mg 24 hr 00:00: mouth [place] capsule 00 daily. Medical Branch predniSONE 2020-2020- No [id number] 20mg Take 1 [facility] 20 mg 05-28-16 tablet by ity of tablet 00:00: 04:59 mouth 2 [place] 00 :00 (two) Medical times Branch daily for 7 days. predniSONE 2020-0 2020- No [id number] 20mg Take 1 [facility] 20 mg 05-28-16 tablet by ity of tablet 00:00: 04:59 mouth 2 [place] 00 :00 (two) Medical times Branch daily for 7 days. azithromyci Yes [id number] 250mg Take 1 [facility] n 7-06 tablet by ity of (ZITHROMAX 00:00: mouth [place] Z-SHAHID) 250 00 SEE-INSTRU Med ical mg tablet CTIONS. Branch Take 500 mg day 1, then 250 mg days 2 to 5. ibuprofen Yes [id number] 600mg Take 1 [facility] n[facility] 600 mg 7-06 tablet by ity of tablet 00:00: mouth [place] 00 every 6 Medical (six) Branch hours as needed for Pain (scale 4-6). benzonatate Yes [id number] 100mg Take 1 [facility] 100 mg 7-06 capsule by ity of capsule 00:00: mouth 3 [place] 00 (three) Medical times Branch daily as needed for Cough. azithromyci Yes [id number] 250mg Take 1 [facility] n 7-06 tablet by ity of (ZITHROMAX 00:00: mouth [place] Z-SHAHID) 250 00 SEE-INSTRU Med ical mg tablet CTIONS. Branch Take 500 mg day 1, then 250 mg days 2 to 5. ibuprofen 2020- Yes [id number] 600mg Take 1 [facility] n[facility] 600 mg 7-06 tablet by ity of tablet 00:00: mouth [place] 00 every 6 Medical (six) Branch hours as needed for Pain (scale 4-6). azithromyci 0 Yes [id number] 250mg Take 1 [facility] n 7-06 tablet by ity of (ZITHROMAX 00:00: mouth [place] Z-SHAHID) 250 00 SEE-INSTRU Med ical mg tablet CTIONS. Branch Take 500 mg day 1, then 250 mg days 2 to 5. ibuprofen Yes [id number] 600mg Take 1 [facility] n[facility] 600 mg 7-06 tablet by ity of tablet 00:00: mouth [place] 00 every 6 Medical (six) Branch hours as needed for Pain (scale 4-6). azithromyci Yes [id number] 250mg Take 1 [facility] n 7-06 tablet by ity of (ZITHROMAX 00:00: mouth [place] Z-SHAHID) 250 00 SEE-INSTRU Med ical mg tablet CTIONS. Branch Take 500 mg day 1, then 250 mg days 2 to 5. ibuprofen Yes [id number] 600mg Take 1 [facility] n[facility] 600 mg 7-06 tablet by ity of tablet 00:00: mouth [place] 00 every 6 Medical (six) Branch hours as needed for Pain (scale 4-6). azithromyci Yes [id number] 250mg Take 1 [facility] n 7-06 tablet by ity of (ZITHROMAX 00:00: mouth [place] Z-SHAHID) 250 00 SEE-INSTRU Med ical mg tablet CTIONS. Branch Take 500 mg day 1, then 250 mg days 2 to 5. ibuprofen Yes [id number] 600mg Take 1 [facility] n[facility] 600 mg 7-06 tablet by ity of tablet 00:00: mouth [place] 00 every 6 Medical (six) Branch hours as needed for Pain (scale 4-6). azithromyci Yes [id number] 250mg Take 1 [facility] n 7-06 tablet by ity of (ZITHROMAX 00:00: mouth [place] Z-SHAHID) 250 00 SEE-INSTRU Med ical mg tablet CTIONS. Branch Take 500 mg day 1, then 250 mg days 2 to 5. ibuprofen Yes [id number] 600mg Take 1 [facility] n[facility] 600 mg 7-06 tablet by ity of tablet 00:00: mouth [place] 00 every 6 Medical (six) Branch hours as needed for Pain (scale 4-6). azithromyci Yes [id number] 250mg Take 1 [facility] n 7-06 tablet by ity of (ZITHROMAX 00:00: mouth [place] Z-SHAHID) 250 00 SEE-INSTRU Med ical mg tablet CTIONS. Branch Take 500 mg day 1, then 250 mg days 2 to 5. ibuprofen Yes [id number] 600mg Take 1 [facility] n[facility] 600 mg 7-06 tablet by ity of tablet 00:00: mouth [place] 00 every 6 Medical (six) Branch hours as needed for Pain (scale 4-6). azithromyci 0 Yes [id number] 250mg Take 1 [facility] n 7-06 tablet by ity of (ZITHROMAX 00:00: mouth [place] Z-SHAHID) 250 00 SEE-INSTRU Med ical mg tablet CTIONS. Branch Take 500 mg day 1, then 250 mg days 2 to 5. ibuprofen Yes [id number] 600mg Take 1 [facility] n[facility] 600 mg 7-06 tablet by ity of tablet 00:00: mouth [place] 00 every 6 Medical (six) Branch hours as needed for Pain (scale 4-6). azithromyci Yes [id number] 250mg Take 1 [facility] n 7-06 tablet by ity of (ZITHROMAX 00:00: mouth [place] Z-SHAHID) 250 00 SEE-INSTRU Med ical mg tablet CTIONS. Branch Take 500 mg day 1, then 250 mg days 2 to 5. ibuprofen Yes [id number] 600mg Take 1 [facility] n[facility] 600 mg 7-06 tablet by ity of tablet 00:00: mouth [place] 00 every 6 Medical (six) Branch hours as needed for Pain (scale 4-6). azithromyci Yes [id number] 250mg Take 1 [facility] n 7-06 tablet by ity of (ZITHROMAX 00:00: mouth [place] Z-SHAHID) 250 00 SEE-INSTRU Med ical mg tablet CTIONS. Branch Take 500 mg day 1, then 250 mg days 2 to 5. ibuprofen Yes [id number] 600mg Take 1 [facility] 600 mg 7-06 tablet by ity of tablet 00:00: mouth [place] 00 every 6 Medical (six) Branch hours as needed for Pain (scale 4-6). azithromyci 0 Yes [id number] 250mg Take 1 [facility] n 7-06 tablet by ity of (ZITHROMAX 00:00: mouth [place] Z-SHAHID) 250 00 SEE-INSTRU Med ical mg tablet CTIONS. Branch Take 500 mg day 1, then 250 mg days 2 to 5. ibuprofen 0 Yes [id number] 600mg Take 1 [facility] n[facility] 600 mg 7-06 tablet by ity of tablet 00:00: mouth [place] 00 every 6 Medical (six) Branch hours as needed for Pain (scale 4-6). azithromyci 0 Yes [id number] 250mg Take 1 [facility] n 7-06 tablet by ity of (ZITHROMAX 00:00: mouth [place] Z-SHAHID) 250 00 SEE-INSTRU Med ical mg tablet CTIONS. Branch Take 500 mg day 1, then 250 mg days 2 to 5. ibuprofen Yes [id number] 600mg Take 1 [facility] n[facility] 600 mg 7-06 tablet by ity of tablet 00:00: mouth [place] 00 every 6 Medical (six) Branch hours as needed for Pain (scale 4-6). azithromyci Yes [id number] 250mg Take 1 [facility] n 7-06 tablet by ity of (ZITHROMAX 00:00: mouth [place] Z-SHAHID) 250 00 SEE-INSTRU Med ical mg tablet CTIONS. Branch Take 500 mg day 1, then 250 mg days 2 to 5. ibuprofen Yes [id number] 600mg Take 1 [facility] n[facility] 600 mg 7-06 tablet by ity of tablet 00:00: mouth [place] 00 every 6 Medical (six) Branch hours as needed for Pain (scale 4-6). azithromyci Yes [id number] 250mg Take 1 [facility] n 7-06 tablet by ity of (ZITHROMAX 00:00: mouth [place] Z-SHAHID) 250 00 SEE-INSTRU Med ical mg tablet CTIONS. Branch Take 500 mg day 1, then 250 mg days 2 to 5. ibuprofen Yes [id number] 600mg Take 1 [facility] 600 mg 7-06 tablet by ity of tablet 00:00: mouth [place] 00 every 6 Medical (six) Branch hours as needed for Pain (scale 4-6). ibuprofen 0 Yes [id number] 600mg Take 1 [facility] 600 mg 7-06 tablet by ity of tablet 00:00: mouth [place] 00 every 6 Medical (six) Branch hours as needed for Pain (scale 4-6). ibuprofen Yes [id number] 600mg Take 1 [facility] n[facility] 600 mg 7-06 tablet by ity of tablet 00:00: mouth [place] 00 every 6 Medical (six) Branch hours as needed for Pain (scale 4-6). azithromyci 2020- No [id number] 250mg Take 1 [facility] n 05-26 12-12 tablet by ity of (ZITHROMAX 00:00: 00:00 mouth [place] Z-SHAHID) 250 00 :00 SEE-INSTRU Med ical mg tablet CTIONS. Branch Take 500 mg day 1, then 250 mg days 2 to 5. benzonatate 2020- No [id number] 100mg Take 1 [facility] 100 mg 05-26 capsule by ity of capsule 00:00: 00:00 mouth 3 [place] 00 :00 (three) Medical times Branch daily as needed for Cough. benzonatate 2020- No [id number] 100mg Take 1 [facility] 100 mg 05-26 capsule by ity of capsule 00:00: 00:00 mouth 3 [place] 00 :00 (three) Medical times Branch daily as needed for Cough. metoprolol Yes [id number] 50mg Take 1 [facility] tartrate 50 6- tablet by ity of mg tablet 00:00: mouth 2 [place] 00 (two) Medical times Branch daily. metoprolol Yes [id number] 50mg Take 1 [facility] tartrate 50 6- tablet by ity of mg tablet 00:00: mouth 2 [place] 00 (two) Medical times Branch daily. metoprolol 2020- No [id number] 50mg Take 1 [facility] tartrate 50 -11 27-08 tablet by it y of mg tablet 00:00: 00:00 mouth 2 [place] :[place] (two) Medical times Branch daily. metoprolol 2020- No [id number] 50mg Take 1 [facility] tartrate 50 6-11 27-08 tablet by it y of mg tablet 00:00: 00:00 [place] 2 [place] :[place] (two) Medical times Branch daily. methylPREDN 2020- No [id number] 80mg U nivers ISolone 5-17 05-17 ity of acetate 18:45: 17:41 [place] (DEPO-MEDRO 00 :00 Medical L) Branch injection 80 mg methylPREDN 2020- No [id number] 80mg U nivers ISolone 504-06 ity of acetate 18:45: 17:40 [place] (DEPO-MEDRO 00 :00 Medical L) Branch injection 80 mg methylPREDN 2020- No [id number] 80mg 80 mg, [facility] ISolone 04-06 Intramuscu ity o f acetate 18:45: 17:40 [place], ONCE, [place] (DEPO-MEDRO 00 :00 1 dose, Medic al L) Mon Branch injection 04/06/21 at 80 mg 1345, Routine methylPREDN 2020- No [id number] 80mg 80 mg, [facility] ISolone 04-06 Intramuscu ity o f acetate 18:45: 17:41 [place], [place], [place] (DEPO-MEDRO 00 :00 1 dose, Medic al L) Mon Branch injection 04/06/21 at 80 mg 1345, Routine methylPREDN 2020- No [id number] 80mg [facility] n[facility] ISolone 04-06 ity of acetate 18:45: 17:41 [place] (DEPO-MEDRO 00 :00 Medical L) Branch injection 80 mg methylPREDN 2020- No [id number] 80mg U n[facility] ISolone 04-06 ity of acetate 18:45: 17:40 [place] (DEPO-MEDRO 00 :00 Medical L) Branch injection 80 mg methylPREDN 2020- No [id number] 80mg 80 mg, [facility] ISolone 04-06 Intramuscu ity o f acetate 18:45: 17:40 [place], [place], [place] (DEPO-MEDRO 00 :00 1 dose, Medic al L) Mon Branch injection 04/06/21 at 80 mg 1345, Routine methylPREDN 2020- No [id number] 80mg 80 mg, [facility] ISolone 504-06 Intramuscu ity o f acetate 18:45: 17:41 [place], ONCE, [place] (DEPO-MEDRO 00 :00 1 dose, Medic al L) Mon Branch injection 04/06/21 at 80 mg 1345, Routine methylPREDN 2020- No [id number] 80mg U n[facility] ISolone 04-06 ity of acetate 18:45: 17:41 [place] (DEPO-MEDRO 00 :00 Medical L) Branch injection 80 mg methylPREDN 2020- No [id number] 80mg U n[facility] ISolone 04-06 ity of acetate 18:45: 17:40 [place] (DEPO-MEDRO 00 :00 Medical L) Branch injection 80 mg methylPREDN 2020- No [id number] 80mg 80 mg, [facility] ISolone 04-06 Intramuscu ity o f acetate 18:45: 17:40 [place], ONCE, [place] (DEPO-MEDRO 00 :00 1 dose, Medic al L) Mon Branch injection 04/06/21 at 80 mg 1345, Routine methylPREDN 2020- No [id number] 80mg 80 mg, [facility] ISolone 04-06 Intramuscu ity o f acetate 18:45: 17:41 [place], ONCE, [place] (DEPO-MEDRO 00 :00 1 dose, Medic al L) Mon Branch injection 04/06/21 at 80 mg 1345, Routine AMLODIPINE 0 Yes [id number] Take 1 [facility] nivers 10 mg 4-30 tablet by ity of tablet 00:00: mouth once daily Medical Branch METOPROLOL 2020-0 Yes [id number] Take 1 [facility] nivers TARTRATE 50 4-30 tablet by ity of mg tablet 00:00: mouth twice Medical daily Branch LOSARTAN 2020-0 Yes [id number] Take 1 [facility] vers 100 mg 4-30 tablet by ity of tablet 00:00: mouth once daily Medical Branch AMLODIPINE 2020-0 Yes [id number] Take 1 [facility] nivers 10 mg 4-30 tablet by ity of tablet 00:00: mouth once daily Medical Branch METOPROLOL 2020-0 Yes [id number] Take 1 [facility] nivers TARTRATE 50 4-30 tablet by ity of mg tablet 00:00: mouth twice Medical daily Branch LOSARTAN 2020-0 Yes [id number] Take 1 [facility] vers 100 mg 4-30 tablet by ity of tablet 00:00: mouth once daily Medical Branch AMLODIPINE 2020-0 Yes [id number] Take 1 [facility] nivers 10 mg 4-30 tablet by ity of tablet 00:00: mouth once daily Medical Branch METOPROLOL 2020-0 Yes [id number] Take 1 [facility] nivers TARTRATE 50 4-30 tablet by ity of mg tablet 00:00: mouth twice Medical daily Branch LOSARTAN 2020-0 Yes [id number] Take 1 [facility] vers 100 mg 4-30 tablet by ity of tablet 00:00: mouth once daily Medical Branch AMLODIPINE 2020-0 Yes [id number] Take 1 [facility] nivers 10 mg 4-30 tablet by ity of tablet 00:00: mouth once daily Medical Branch METOPROLOL 2020-0 Yes [id number] Take 1 [facility] nivers TARTRATE 50 4-30 tablet by ity of mg tablet 00:00: mouth twice Medical daily Branch LOSARTAN 2020-0 Yes [id number] Take 1 [facility] vers 100 mg 4-30 tablet by ity of tablet 00:00: mouth once daily Medical Branch AMLODIPINE 2020-0 Yes [id number] Take 1 [facility] nivers 10 mg 4-30 tablet by ity of tablet 00:00: mouth once daily Medical Branch METOPROLOL 2020-0 Yes [id number] Take 1 [facility] nivers TARTRATE 50 4-30 tablet by ity of mg tablet 00:00: mouth twice Medical daily Branch LOSARTAN 2020-0 Yes [id number] Take 1 [facility] vers 100 mg 4-30 tablet by ity of tablet 00:00: mouth once daily Medical Branch AMLODIPINE 2020-0 Yes [id number] Take 1 [facility] nivers 10 mg 4-30 tablet by ity of tablet 00:00: mouth once daily Medical Branch LOSARTAN 2020-0 Yes [id number] Take 1 [facility] vers 100 mg 4-30 tablet by ity of tablet 00:00: mouth once daily Medical Branch AMLODIPINE 2020-0 Yes [id number] Take 1 [facility] nivers 10 mg 4-30 tablet by ity of tablet 00:00: mouth once daily Medical Branch LOSARTAN 2020-0 Yes [id number] Take 1 [facility] vers 100 mg 4-30 tablet by ity of tablet 00:00: mouth once daily Medical Branch AMLODIPINE 2020-0 Yes [id number] Take 1 [facility] nivers 10 mg 4-30 tablet by ity of tablet 00:00: mouth once daily Medical Branch LOSARTAN 2021-0 Yes [id number] Take 1 [facility] vers 100 mg 4-30 tablet by ity of tablet 00:00: mouth once daily Medical Branch AMLODIPINE 2021-0 Yes [id number] Take 1 [facility] nivers 10 mg 4-30 tablet by ity of tablet 00:00: mouth once daily Medical Branch LOSARTAN 2021-0 Yes [id number] Take 1 [facility] vers 100 mg 4-30 tablet by ity of tablet 00:00: mouth once daily Medical Branch AMLODIPINE 202-0 Yes [id number] Take 1 [facility] nivers 10 mg 4-30 tablet by ity of tablet 00:00: mouth once daily Medical Branch LOSARTAN 202-0 Yes [id number] Take 1 [facility] vers 100 mg 4-30 tablet by ity of tablet 00:00: mouth once daily Medical Branch AMLODIPINE 2021-0 Yes [id number] Take 1 [facility] nivers 10 mg 4-30 tablet by ity of tablet 00:00: mouth once daily Medical Branch LOSARTAN 2021-0 Yes [id number] Take 1 [facility] vers 100 mg 4-30 tablet by ity of tablet 00:00: mouth once daily Medical Branch AMLODIPINE 2021-0 Yes [id number] Take 1 [facility] nivers 10 mg 4-30 tablet by ity of tablet 00:00: mouth once daily Medical Branch LOSARTAN 2021-0 Yes [id number] Take 1 [facility] vers 100 mg 4-30 tablet by ity of tablet 00:00: mouth once daily Medical Branch AMLODIPINE 2021-0 Yes [id number] Take 1 [facility] nivers 10 mg 4-30 tablet by ity of tablet 00:00: mouth once daily Medical Branch LOSARTAN 2021-0 Yes [id number] Take 1 [facility] vers 100 mg 4-30 tablet by ity of tablet 00:00: mouth once daily Medical Branch AMLODIPINE 2021-0 Yes [id number] Take 1 [facility] nivers 10 mg 4-30 tablet by ity of tablet 00:00: mouth once daily Medical Branch LOSARTAN 2021-0 Yes [id number] Take 1 [facility] vers 100 mg 4-30 tablet by ity of tablet 00:00: mouth once daily Medical Branch AMLODIPINE 2021-0 Yes [id number] Take 1 [facility] nivers 10 mg 4-30 tablet by ity of tablet 00:00: mouth once daily Medical Branch LOSARTAN 202-0 Yes [id number] Take 1 [facility] vers 100 mg 4-30 tablet by ity of tablet 00:00: mouth once daily Medical Branch AMLODIPINE 2020-0 Yes [id number] Take 1 [facility] nivers 10 mg 4-30 tablet by ity of tablet 00:00: mouth once daily Medical Branch LOSARTAN 2020-0 Yes [id number] Take 1 [facility] vers 100 mg 4-30 tablet by ity of tablet 00:00: mouth once daily Medical Branch AMLODIPINE 2020-0 Yes [id number] Take 1 [facility] nivers 10 mg 4-30 tablet by ity of tablet 00:00: mouth once daily Medical Branch LOSARTAN 2020-0 Yes [id number] Take 1 [facility] vers 100 mg 4-30 tablet by [facility] of tablet 00:00: mouth once daily Medical Branch AMLODIPINE 2020-0 Yes [id number] Take 1 [facility] nivers 10 mg 4-30 tablet by ity of tablet 00:00: mouth once Medical Branch LOSARTAN 2020-0 Yes [id number] Take 1 [facility] vers 100 mg 4-30 tablet by ity of tablet 00:00: mouth once Medical Branch AMLODIPINE 2020-0 Yes [id number] Take 1 [facility] n[facility] 10 mg 4-30 tablet by ity of tablet 00:00: mouth once Medical Branch LOSARTAN 2020-0 Yes [id number] Take 1 [facility] vers 100 mg 4-30 tablet by ity of tablet 00:00: mouth once daily Medical Branch AMLODIPINE 2020-0 Yes [id number] Take 1 [facility] 10 mg 4-30 tablet by ity of tablet 00:00: mouth once daily Medical Branch LOSARTAN 1-0 Yes [id number] Take 1 [facility] vers 100 mg 4-30 tablet by ity of tablet 00:00: mouth once daily Medical Branch AMLODIPINE 2020-0 Yes [id number] Take 1 [facility] nivers 10 mg 4-30 tablet by ity of tablet 00:00: mouth once daily Medical Branch LOSARTAN 2020-0 Yes [id number] Take 1 [facility] vers 100 mg 4-30 tablet by ity of tablet 00:00: mouth once daily Medical Branch AMLODIPINE 2021-0 2020- No [id number] Take 1 [facility] 10 mg 4-30 12-12 tablet by [facility] tablet 00:00: 00:[place] mouth [place] :[place] daily [facility] LOSARTAN 2020-2020- No [id number] Take 1 [facility] 100 mg 4-30 12-12 tablet by it[facility] tablet 00:00: 00:[place] mouth [place] 00 :00 daily [facility] METOPROLOL 2020- No [id number] Take 1 [facility] TARTRATE 50 4-30 06- tablet by it y of mg tablet 00:00: 00:00 mouth [place] 00 :00 twice Medical daily Branch aspirin 81 Yes 81mg Take 81 mg [facility] nivers mg chewable 4-05 by mouth ity of tablet 18:55: daily. [address] Branch vitamin B Yes Take by Univ ers complex (B 4-05 mouth ity of COMPLEX-VIT 18:55: daily. [facility] [id number] Medical ORAL) Branch aspirin 81 Yes 81mg Take 81 mg U nivers mg chewable 4-05 by mouth ity of tablet 18:55: daily. [address] vitamin B Yes Take by Univ ers complex (B 4-05 mouth ity of COMPLEX-VIT 18:55: daily. [facility] LEON [id number] Medical ORAL) Branch aspirin 81 2020- Yes 81mg Take 81 mg U nivers mg chewable 4-05 by mouth ity of tablet 18:55: daily. [address] vitamin B Yes Take by Univ ers complex (B 4-05 mouth ity of COMPLEX-VIT 18:55: daily. [facility] B12 [id number] Medical ORAL) Branch aspirin 81 Yes 81mg Take 81 mg U nivers mg chewable 4-05 by mouth ity of tablet 18:55: daily. [address] vitamin B Yes Take by Univ ers complex (B 4-05 mouth ity of COMPLEX-VIT 18:55: daily. [facility] LEON B12 [id number] Medical ORAL) Branch aspirin 81 2020- Yes 81mg Take 81 mg U nivers mg chewable 4-05 by mouth ity of tablet 18:55: daily. [address] vitamin B Yes Take by Univ ers complex (B 4-05 mouth ity of COMPLEX-VIT 18:55: daily. [place] [id number] Medical ORAL) Branch aspirin 81 0 Yes 81mg Take 81 mg U nivers mg chewable 4-05 by mouth ity of tablet 18:55: daily. [address] Branch vitamin B Yes Take by Univ ers complex (B 4-05 mouth ity of COMPLEX-VIT 18:55: daily. [place] [id number] Medical ORAL) Branch aspirin 81 0 Yes 81mg Take 81 mg [facility] nivers mg chewable 4-05 by mouth ity of tablet 18:55: daily. [address] vitamin B Yes Take by Univ ers complex (B 4-05 mouth ity of COMPLEX-VIT 18:55: daily. [place] [id number] Medical ORAL) Branch aspirin 81 2020-0 Yes 81mg Take 81 mg [facility] nivers mg chewable 4-05 by mouth ity of tablet 18:55: daily. [address] vitamin B Yes Take by Univ ers complex (B 4-05 mouth ity of COMPLEX-VIT 18:55: daily. [place] [id number] Medical ORAL) Branch aspirin 81 0 Yes 81mg Take 81 mg [facility] nivers mg chewable 4-05 by mouth ity of tablet 18:55: daily. [address] vitamin B Yes Take by [facility] ers complex (B 4-05 mouth ity of COMPLEX-VIT 18:55: daily. [place] [id number] Medical ORAL) Branch AMLODIPINE 0 Yes [id number] Take 1 [facility] nivers 10 mg 3-15 tablet by ity of tablet 00:00: mouth once daily Medical Branch METOPROLOL 2020-0 Yes [id number] Take 1 [facility] nivers TARTRATE 50 3-15 tablet by ity of mg tablet 00:00: mouth twice Medical daily Branch LOSARTAN 2020-0 Yes [id number] Take 1 [facility] vers 100 mg 3-15 tablet by ity of tablet 00:00: mouth once 00 daily Medical Branch HYDRALAZINE 2020-0 Yes [id number] Take 1 [facility] 10 mg 3-15 tablet by ity of tablet 00:00: mouth twice Medical daily Branch citalopram 0 Yes [id number] 20mg Take 1 [facility] nivers 20 mg 3-15 tablet by ity of tablet 00:00: mouth [place] 00 daily. Medical Branch AMLODIPINE 2020-0 Yes [id number] Take 1 [facility] nivers 10 mg 3-15 tablet by ity of tablet 00:00: mouth once [place] 00 daily Medical Branch METOPROLOL 2020-0 Yes [id number] Take 1 [facility] nivers TARTRATE 50 3-15 tablet by ity of mg tablet 00:00: mouth [place] 00 twice Medical daily Branch LOSARTAN 2020-0 Yes [id number] Take 1 [facility] vers 100 mg 3-15 tablet by ity of tablet 00:00: mouth once [place] 00 daily Medical Branch HYDRALAZINE 2020-0 Yes [id number] Take 1 [facility] 10 mg 3-15 tablet by ity of tablet 00:00: mouth [place] 00 twice Medical daily Branch citalopram 0 Yes [id number] 20mg Take 1 [facility] nivers 20 mg 3-15 tablet by ity of tablet 00:00: mouth [place] 00 daily. Medical Branch HYDRALAZINE 2020-0 Yes [id number] Take 1 [facility] 10 mg 3-15 tablet by ity of tablet 00:00: mouth [place] 00 twice Medical daily Branch citalopram 2020-0 Yes [id number] 20mg Take 1 [facility] nivers 20 mg 3-15 tablet by ity of tablet 00:00: mouth [place] 00 daily. Medical Branch HYDRALAZINE 2020-0 Yes [id number] Take 1 [facility] 10 mg 3-15 tablet by ity of tablet 00:00: mouth [place] 00 twice Medical daily Branch citalopram 2020-0 Yes [id number] 20mg Take 1 [facility] nivers 20 mg 3-15 tablet by ity of tablet 00:00: mouth [place] 00 daily. Medical Branch HYDRALAZINE 2020-0 Yes [id number] Take 1 [facility] 10 mg 3-15 tablet by ity of tablet 00:00: mouth [place] 00 twice Medical daily Branch citalopram 2020-0 Yes [id number] 20mg Take 1 [facility] nivers 20 mg 3-15 tablet by ity of tablet 00:00: mouth [place] 00 daily. Medical Branch HYDRALAZINE 2020-0 Yes [id number] Take 1 [facility] 10 mg 3-15 tablet by ity of tablet 00:00: mouth [place] 00 twice Medical daily Branch citalopram 2021-0 Yes [id number] 20mg Take 1 [facility] nivers 20 mg 3-15 tablet by ity of tablet 00:00: mouth [place] 00 daily. Medical Branch HYDRALAZINE 2020-0 Yes [id number] Take 1 [facility] 10 mg 3-15 tablet by ity of tablet 00:00: mouth [place] 00 twice Medical daily Branch citalopram 0 Yes [id number] 20mg Take 1 [facility] nivers 20 mg 3-15 tablet by ity of tablet 00:00: mouth [place] 00 daily. Medical Branch HYDRALAZINE 2020-0 Yes [id number] Take 1 [facility] 10 mg 3-15 tablet by ity of tablet 00:00: mouth [place] 00 twice Medical daily Branch citalopram 0 Yes [id number] 20mg Take 1 [facility] nivers 20 mg 3-15 tablet by ity of tablet 00:00: mouth [place] 00 daily. Medical Branch HYDRALAZINE 0 Yes [id number] Take 1 [facility] 10 mg 3-15 tablet by ity of tablet 00:00: mouth [place] 00 twice Medical daily Branch citalopram 2020-0 Yes [id number] 20mg Take 1 [facility] nivers 20 mg 3-15 tablet by ity of tablet 00:00: mouth [place] 00 daily. Medical Branch HYDRALAZINE 0 Yes [id number] Take 1 [facility] 10 mg 3-15 tablet by ity of tablet 00:00: mouth [place] 00 twice Medical daily Branch citalopram 2020-0 Yes [id number] 20mg Take 1 [facility] nivers 20 mg 3-15 tablet by ity of tablet 00:00: mouth [place] 00 daily. Medical Branch HYDRALAZINE 2020-0 Yes [id number] Take 1 [facility] 10 mg 3-15 tablet by ity of tablet 00:00: mouth [place] 00 twice Medical daily Branch citalopram 2020-0 Yes [id number] 20mg Take 1 [facility] nivers 20 mg 3-15 tablet by ity of tablet 00:00: mouth [place] 00 daily. Medical Branch HYDRALAZINE 2020-0 Yes [id number] Take 1 [facility] 10 mg 3-15 tablet by ity of tablet 00:00: mouth [place] 00 twice Medical daily Branch citalopram 2020-0 Yes [id number] 20mg Take 1 [facility] nivers 20 mg 3-15 tablet by ity of tablet 00:00: mouth [place] 00 daily. Medical Branch HYDRALAZINE 2020-0 Yes [id number] Take 1 [facility] 10 mg 3-15 tablet by ity of tablet 00:00: mouth [place] 00 twice Medical daily Branch citalopram 2020-0 Yes [id number] 20mg Take 1 [facility] nivers 20 mg 3-15 tablet by ity of tablet 00:00: mouth [place] 00 daily. Medical Branch HYDRALAZINE 2020-0 Yes [id number] Take 1 [facility] 10 mg 3-15 tablet by ity of tablet 00:00: mouth [place] 00 twice Medical daily Branch citalopram 2020-0 Yes [id number] 20mg Take 1 [facility] nivers 20 mg 3-15 tablet by ity of tablet 00:00: mouth [place] 00 daily. Medical Branch HYDRALAZINE 2020-0 Yes [id number] Take 1 [facility] 10 mg 3-15 tablet by ity of tablet 00:00: mouth [place] 00 twice Medical daily Branch citalopram 2020-0 Yes [id number] 20mg Take 1 [facility] nivers 20 mg 3-15 tablet by ity of tablet 00:00: mouth [place] 00 daily. Medical Branch HYDRALAZINE 2020-0 Yes [id number] Take 1 [facility] 10 mg 3-15 tablet by ity of tablet 00:00: mouth [place] 00 twice Medical daily Branch citalopram 2020-0 Yes [id number] 20mg Take 1 [facility] nivers 20 mg 3-15 tablet by ity of tablet 00:00: mouth [place] 00 daily. Medical Branch HYDRALAZINE 2020-0 Yes [id number] Take 1 [facility] 10 mg 3-15 tablet by ity of tablet 00:00: mouth [place] 00 twice Medical daily Branch citalopram 2020-0 Yes [id number] 20mg Take 1 [facility] nivers 20 mg 3-15 tablet by ity of tablet 00:00: mouth [place] 00 daily. Medical Branch HYDRALAZINE 2020-0 Yes [id number] Take 1 [facility] 10 mg 3-15 tablet by ity of tablet 00:00: mouth [place] 00 twice Medical daily Branch citalopram 2020-0 Yes [id number] 20mg Take 1 [facility] nivers 20 mg 3-15 tablet by ity of tablet 00:00: mouth [place] 00 daily. Medical Branch HYDRALAZINE 2020-0 Yes [id number] Take 1 [facility] 10 mg 3-15 tablet by ity of tablet 00:00: mouth [place] 00 twice Medical daily Branch citalopram 2020-0 Yes [id number] 20mg Take 1 [facility] nivers 20 mg 3-15 tablet by ity of tablet 00:00: mouth [place] 00 daily. Medical Branch HYDRALAZINE 2020-0 Yes [id number] Take 1 [facility] 10 mg 3-15 tablet by ity of tablet 00:00: mouth [place] 00 twice Medical daily Branch citalopram 2020-0 Yes [id number] 20mg Take 1 [facility] nivers 20 mg 3-15 tablet by ity of tablet 00:00: mouth [place] 00 daily. Medical Branch HYDRALAZINE 2020-0 Yes [id number] Take 1 [facility] 10 mg 3-15 tablet by ity of tablet 00:00: mouth [place] 00 twice Medical daily Branch citalopram 2020-0 Yes [id number] 20mg Take 1 [facility] nivers 20 mg 3-15 tablet by ity of tablet 00:00: mouth [place] 00 daily. Medical Branch HYDRALAZINE 2020-0 Yes [id number] Take 1 [facility] 10 mg 3-15 tablet by ity of tablet 00:00: mouth [place] 00 twice Medical daily Branch citalopram 2020-0 Yes [id number] 20mg Take 1 [facility] nivers 20 mg 3-15 tablet by ity of tablet 00:00: mouth [place] 00 daily. Medical Branch HYDRALAZINE 2020-0 Yes [id number] Take 1 [facility] 10 mg 3-15 tablet by ity of tablet 00:00: mouth [place] 00 twice Medical daily Branch citalopram 2020-0 Yes [id number] 20mg Take 1 [facility] nivers 20 mg 3-15 tablet by ity of tablet 00:00: mouth [place] 00 daily. Medical Branch HYDRALAZINE 2020-0 Yes [id number] Take 1 [facility] 10 mg 3-15 tablet by ity of tablet 00:00: mouth [place] 00 twice Medical daily Branch citalopram 2020-0 Yes [id number] 20mg Take 1 [facility] nivers 20 mg 3-15 tablet by ity of tablet 00:00: mouth [place] 00 daily. Medical Branch HYDRALAZINE 2020-0 Yes [id number] Take 1 [facility] 10 mg 3-15 tablet by ity of tablet 00:00: mouth [place] 00 twice Medical daily Branch citalopram 2021-0 Yes [id number] 20mg Take 1 [facility] nivers 20 mg 3-15 tablet by ity of tablet 00:00: mouth 00 daily. Medical Branch HYDRALAZINE Yes [id number] Take 1 [facility] 10 mg 3-15 tablet by ity of tablet 00:00: mouth 00 twice Medical daily Branch citalopram Yes [id number] 20mg Take 1 [facility] nivers 20 mg 3-15 tablet by ity of tablet 00:00: mouth 00 daily. Medical Branch HYDRALAZINE Yes [id number] Take 1 [facility] 10 mg 3-15 tablet by ity of tablet 00:00: mouth 00 twice Medical daily Branch citalopram Yes [id number] 20mg Take 1 [facility] nivers 20 mg 3-15 tablet by ity of tablet 00:00: mouth 00 daily. Medical Branch AMLODIPINE 2020- No [id number] Take 1 [facility] 10 mg 3-15 04-05 tablet by ity of tablet 00:00: 00:00 mouth [place] 00 :00 daily [facility] Branch METOPROLOL 0 2020- No [id number] Take 1 [facility] TARTRATE 50 3-15 04-05 tablet by it y of mg tablet 00:00: 00:00 mouth [place] 00 :00 twice Medical daily Branch LOSARTAN 2020- No [id number] Take 1 [facility] moises 100 mg 3-15 04-05 tablet by ity of tablet 00:00: 00:00 mouth once [place] 00 :00 daily [facility] Branch AMLODIPINE 2020-0 2020- No [id number] Take 1 [facility] 10 mg 3-15 04-05 tablet by ity of tablet 00:00: 00:00 mouth once [place] 00 :00 daily Medical Branch METOPROLOL 2020-0 2020- No [id number] Take 1 [facility] TARTRATE 50 3-15 04-05 tablet by it y of mg tablet 00:00: 00:00 mouth [place] 00 :00 twice Medical daily Branch LOSARTAN 2020-0 2020- No [id number] Take 1 [facility] moises 100 mg 3-15 04-05 tablet by ity of tablet 00:00: 00:00 mouth once [place] 00 :00 daily Medical Branch amLODIPine Yes 10mg Take 1 Unive rs 10 mg 2-05 tablet by ity of tablet 00:00: mouth [place] 00 daily. Medical Branch hydrALAZINE 1-0 Yes 10mg Take 1 Univ ers 10 mg 2-05 tablet by ity of tablet 00:00: mouth 2 (two) Medical times Branch daily. losartan 2021-0 Yes 100mg Take 1 Univer s 100 mg 2-05 tablet by ity of tablet 00:00: mouth 00 daily. Medical Branch metoprolol 1-0 Yes 50mg Take 1 Unive rs tartrate 50 2-05 tablet by ity of mg tablet 00:00: mouth 2 00 (two) Medical times Branch daily. citalopram 1-0 Yes 20mg Take 1 Unive rs 20 mg 2-05 tablet by ity of tablet 00:00: mouth 00 daily. Medical Branch amLODIPine 2020-0 Yes 10mg Take 1 Unive rs 10 mg 2-05 tablet by ity of tablet 00:00: mouth 00 daily. Medical Branch hydrALAZINE 2020-0 Yes 10mg Take 1 Univ ers 10 mg 2-05 tablet by ity of tablet 00:00: mouth (two) Medical times Branch daily. losartan 1-0 Yes 100mg Take 1 Univer s 100 mg 2-05 tablet by ity of tablet 00:00: mouth 00 daily. Medical Branch metoprolol 2020-0 Yes 50mg Take 1 Unive rs tartrate 50 2-05 tablet by ity of mg tablet 00:00: mouth 2 (two) Medical times Branch daily. citalopram 1-0 Yes 20mg Take 1 Unive rs 20 mg 2-05 tablet by ity of tablet 00:00: mouth [place] 00 daily. Medical Branch citalopram 1-0 Yes 20mg Take 1 Unive rs 20 mg 2-05 tablet by ity of tablet 00:00: mouth [place] 00 daily. Medical Branch citalopram 1-0 Yes 20mg Take 1 Unive rs 20 mg 2-05 tablet by ity of tablet 00:00: mouth [place] 00 daily. Medical Branch amLODIPine 1-0 Yes 10mg Take 1 Unive rs 10 mg 2-05 tablet by ity of tablet 00:00: mouth [place] 00 daily. Medical Branch hydrALAZINE 1-0 Yes 10mg Take 1 Univ ers 10 mg 2-05 tablet by ity of tablet 00:00: mouth (two) Medical times Branch daily. losartan 2021-0 Yes 100mg Take 1 Univer s 100 mg 2-05 tablet by ity of tablet 00:00: mouth 00 daily. Medical Branch metoprolol 2020-0 Yes 50mg Take 1 Unive rs tartrate 50 2-05 tablet by ity of mg tablet 00:00: mouth (two) Medical times Branch daily. citalopram 1-0 Yes 20mg Take 1 Unive rs 20 mg 2-05 tablet by ity of tablet 00:00: mouth 00 daily. Medical Branch amLODIPine 2020-0 Yes 10mg Take 1 Unive rs 10 mg 2-05 tablet by ity of tablet 00:00: mouth 00 daily. Medical Branch hydrALAZINE 2020-0 Yes 10mg Take 1 Univ ers 10 mg 2-05 tablet by ity of tablet 00:00: mouth (two) Medical times Branch daily. losartan 2020-0 Yes 100mg Take 1 Univer s 100 mg 2-05 tablet by ity of tablet 00:00: mouth 00 daily. Medical Branch metoprolol 2020-0 Yes 50mg Take 1 Unive rs tartrate 50 2-05 tablet by ity of mg tablet 00:00: mouth (two) Medical times Branch daily. citalopram 2020-0 Yes 20mg Take 1 Unive rs 20 mg 2-05 tablet by ity of tablet 00:00: mouth 00 daily. Medical Branch amLODIPine 2020-0 Yes 10mg Take 1 Unive rs 10 mg 2-05 tablet by ity of tablet 00:00: mouth 00 daily. Medical Branch hydrALAZINE 2020-0 Yes 10mg Take 1 [facility] ers 10 mg 2-05 tablet by ity of tablet 00:00: mouth (two) Medical times Branch daily. losartan 2021-0 Yes 100mg Take 1 Univer s 100 mg 2-05 tablet by ity of tablet 00:00: mouth 00 daily. Medical Branch metoprolol 1-0 Yes 50mg Take 1 Unive rs tartrate 50 2-05 tablet by ity of mg tablet 00:00: mouth (two) Medical times Branch daily. citalopram 2020-0 Yes 20mg Take 1 [facility] rs 20 mg 2-05 tablet by ity of tablet 00:00: mouth [place] 00 daily. Medical Branch amLODIPine 2020-0 Yes 10mg Take 1 [facility] rs 10 mg 2-05 tablet by ity of tablet 00:00: mouth [place] 00 daily. Medical Branch hydrALAZINE 2020-0 Yes 10mg Take 1 [facility] ers 10 mg 2-05 tablet by ity of tablet 00:00: mouth 2 [place] 00 (two) Medical times Branch daily. losartan 2020-0 Yes 100mg Take 1 [facility]iver s 100 mg 2-05 tablet by ity of tablet 00:00: mouth [place] 00 daily. Medical Branch metoprolol 2020-0 Yes 50mg Take 1 Un[facility] rs tartrate 50 2-05 tablet by ity of mg tablet 00:00: mouth 2 [place] 00 (two) Medical times Branch daily. citalopram 2020-0 Yes 20mg Take 1 [facility] rs 20 mg 2-05 tablet by ity of tablet 00:00: mouth [place] 00 daily. Medical Branch citalopram 2020-0 202- No 20mg Take 1 [facility] ers 20 mg 2-05 04-05 tablet by ity of tablet 00:00: 00:00 mouth [place] 00 :00 daily. Medical Branch citalopram 2020-0 2020- No 20mg Take 1 [facility] ers 20 mg 2-05 04-05 tablet by ity of tablet 00:00: 00:00 mouth [place] 00 :00 daily. Medical Branch amLODIPine 2020-0 2020- No 10mg Take 1 [facility] ers 10 mg 2-05 03-15 tablet by ity of tablet 00:00: 00:00 mouth [place] 00 :00 daily. Medical Branch hydrALAZINE 2020-0 2020- No 10mg Take 1 [facility] vers 10 mg 2-05 03-15 tablet by ity of tablet 00:00: 00:00 mouth 2 [place] 00 :00 (two) Medical times Branch daily. losartan 2020-0 1- No 100mg Take 1 [facility] rs 100 mg 2-05 03-15 tablet by ity of tablet 00:00: 00:00 mouth [place] 00 :00 daily. Medical Branch metoprolol 2020-0 2021- No 50mg Take 1 [facility] ers tartrate 50 2-05 03-15 tablet by it y of mg tablet 00:00: 00:00 mouth 2 [place] 00 :00 (two) Medical times Branch daily. methylPREDN 2020-1 2020- No 80mg Unive rs ISolone 12-08 ity of acetate 19:00: 18:06 [place] (DEPO-MEDRO 00 :00 Medical L) 80 mg/mL Branch 80 mg, lidocaine 1% (PF) (XYLOCAINE) 4 mL 5 mL injection methylPREDN 2020- 2020- No 80mg Unive rs ISolone 12-08 ity of acetate 19:00: 18:06 [place] (DEPO-MEDRO 00 :00 Medical L) 80 mg/mL Branch 80 mg, lidocaine 1% (PF) (XYLOCAINE) 4 mL 5 mL injection methylPREDN 2020- 2020- No 80mg [facility] ISolone 12-08 cular, ity of acetate 19:00: 18:06 ONCE, 1 [place] (DEPO-MEDRO 00 :00 dose, Wed Med ical L) 80 mg/mL 10/08/20 Bran ch 80 mg, at 1300, 5 lidocaine mL 1% (PF) (XYLOCAINE) 4 mL 5 mL injection methylPREDN 2020- 2020- No 80mg [facility] ISolone 12-08 cular, ity of acetate 19:00: 18:06 ONCE, 1 [place] (DEPO-MEDRO 00 :00 dose, Wed Med ical L) 80 mg/mL 10/08/20 Bran ch 80 mg, at 1300, 5 lidocaine mL 1% (PF) (XYLOCAINE) 4 mL 5 mL injection methylPREDN 2020- 2020- No 80mg Unive rs ISolone 12-08 ity of acetate 19:00: 18:06 [place] (DEPO-MEDRO 00 :00 Medical L) 80 mg/mL Branch 80 mg, lidocaine 1% (PF) (XYLOCAINE) 4 mL 5 mL injection methylPREDN 2020-1 2020- No 80mg Unive rs ISolone 12-08 ity of acetate 19:00: 18:06 [place] (DEPO-MEDRO 00 :00 Medical L) 80 mg/mL Branch 80 mg, lidocaine 1% (PF) (XYLOCAINE) 4 mL 5 mL injection methylPREDN 2020-1 2020- No 80mg [facility] ISolone 12-08 cular, ity of acetate 19:00: 18:06 ONCE, 1 [place] (DEPO-MEDRO 00 :00 dose, Wed Med ical L) 80 mg/mL 10/08/20 Bran ch 80 mg, at 1300, 5 lidocaine mL 1% (PF) (XYLOCAINE) 4 mL 5 mL injection methylPREDN 2019-11- No 80mg [facility] ISolone 12-08 cular, ity of acetate 19:00: 18:06 ONCE, 1 [place] (DEPO-MEDRO 00 :00 dose, Wed Med ical L) 80 mg/mL 10/08/20 Bran ch 80 mg, at 1300, 5 lidocaine mL 1% (PF) (XYLOCAINE) 4 mL 5 mL injection naproxen 2019-11 Yes [id number] 500mg Take 1 [facility] nivers 500 mg 0-29 tablet by ity of tablet 00:00: mouth (two) Medical times Branch daily with meals. baclofen 10 2019-11 Yes [id number] 10mg Take 1 [facility] mg tablet 0-29 tablet by ity o f 00:00: mouth 3 (three) Medical times Branch daily as needed for Pain (scale 7-10). naproxen 2019-11 Yes [id number] 500mg Take 1 [facility] nivers 500 mg 0-29 tablet by ity of tablet 00:00: mouth 2 (two) Medical times Branch daily with meals. baclofen 10 2019-11 Yes [id number] 10mg Take 1 [facility] mg tablet 0-29 tablet by ity o f 00:00: mouth 3 (three) Medical times Branch daily as needed for Pain (scale 7-10). naproxen 2019-11 Yes [id number] 500mg Take 1 [facility] nivers 500 mg 0-29 tablet by ity of tablet 00:00: mouth 2 (two) Medical times Branch daily with meals. baclofen 10 2019-11 Yes [id number] 10mg Take 1 [facility] mg tablet 0-29 tablet by ity o f 00:00: mouth 3 (three) Medical times Branch daily as needed for Pain (scale 7-10). naproxen 2019-11 Yes [id number] 500mg Take 1 [facility] nivers 500 mg 0-29 tablet by ity of tablet 00:00: mouth (two) Medical times Branch daily with meals. baclofen 10 2019-11 Yes [id number] 10mg Take 1 [facility] mg tablet 0-29 tablet by ity o f 00:00: mouth 3 (three) Medical times Branch daily as needed for Pain (scale 7-10). naproxen 2019-11 Yes [id number] 500mg Take 1 [facility] nivers 500 mg 0-29 tablet by ity of tablet 00:00: mouth (two) Medical times Branch daily with meals. baclofen 10 2019-11 Yes [id number] 10mg Take 1 [facility] mg tablet 0-29 tablet by ity o f 00:00: mouth (three) Medical times Branch daily as needed for Pain (scale 7-10). naproxen 2019-11 Yes [id number] 500mg Take 1 [facility] nivers 500 mg 0-29 tablet by ity of tablet 00:00: mouth (two) Medical times Branch daily with meals. baclofen 2019-11 Yes [id number] 10mg Take 1 [facility] mg tablet 0-29 tablet by ity o f 00:00: mouth (three) Medical times Branch daily as needed for Pain (scale 7-10). naproxen 2019-11 Yes [id number] 500mg Take 1 [facility] nivers 500 mg 0-29 tablet by ity of tablet 00:00: mouth (two) Medical times Branch daily with meals. baclofen 10 2019-11 Yes [id number] 10mg Take 1 [facility] mg tablet 0-29 tablet by ity o f 00:00: mouth (three) Medical times Branch daily as needed for Pain (scale 7-10). naproxen 2019-11 Yes [id number] 500mg Take 1 [facility] nivers 500 mg 0-29 tablet by ity of tablet 00:00: mouth (two) Medical times Branch daily with meals. baclofen 10 2019-11 Yes [id number] 10mg Take 1 [facility] mg tablet 0-29 tablet by ity o f 00:00: mouth 3 (three) Medical times Branch daily as needed for Pain (scale 7-10). naproxen 2019-11 Yes [id number] 500mg Take 1 [facility] nivers 500 mg 0-29 tablet by ity of tablet 00:00: mouth (two) Medical times Branch daily with meals. baclofen 10 2019-11 Yes [id number] 10mg Take 1 [facility] mg tablet 0-29 tablet by ity o f 00:00: mouth 3 (three) Medical times Branch daily as needed for Pain (scale 7-10). naproxen 2019-11 Yes [id number] 500mg Take 1 [facility] nivers 500 mg 0-29 tablet by ity of tablet 00:00: mouth (two) Medical times Branch daily with meals. baclofen 10 2019-11 Yes [id number] 10mg Take 1 [facility] mg tablet 0-29 tablet by ity o f 00:00: mouth (three) Medical times Branch daily as needed for Pain (scale 7-10). naproxen 2019-11 Yes [id number] 500mg Take 1 [facility] nivers 500 mg 0-29 tablet by ity of tablet 00:00: mouth (two) Medical times Branch daily with meals. baclofen 2019-11 Yes [id number] 10mg Take 1 [facility] mg tablet 0-29 tablet by ity o f 00:00: mouth (three) Medical times Branch daily as needed for Pain (scale 7-10). naproxen 2019-11 Yes [id number] 500mg Take 1 [facility] nivers 500 mg 0-29 tablet by ity of tablet 00:00: mouth (two) Medical times Branch daily with meals. baclofen 10 2019-11 Yes [id number] 10mg Take 1 [facility] mg tablet 0-29 tablet by ity o f 00:00: mouth (three) Medical times Branch daily as needed for Pain (scale 7-10). naproxen 2019-11 Yes [id number] 500mg Take 1 [facility]ivers 500 mg 0-29 tablet by ity of tablet 00:00: mouth (two) Medical times Branch daily with meals. baclofen 10 2019-11 Yes [id number] 10mg Take 1 [facility] mg tablet 0-29 tablet by ity o f 00:00: mouth 3 (three) Medical times Branch daily as needed for Pain (scale 7-10). baclofen 10 2019-11 Yes [id number] 10mg Take 1 [facility] mg tablet 0-29 tablet by ity o f 00:00: mouth 3 (three) Medical times Branch daily as needed for Pain (scale 7-10). baclofen 10 2019-11 Yes [id number] 10mg Take 1 [facility] mg tablet 0-29 tablet by ity o f 00:00: mouth 3 (three) Medical times Branch daily as needed for Pain (scale 7-10). baclofen 10 2019-11 Yes [id number] 10mg Take 1 [facility] mg tablet 0-29 tablet by ity o f 00:00: mouth 3 (three) Medical times Branch daily as needed for Pain (scale 7-10). baclofen 10 2019-11 Yes [id number] 10mg Take 1 [facility] mg tablet 0-29 tablet by ity o f 00:00: mouth 3 (three) Medical times Branch daily as needed for Pain (scale 7-10). baclofen 10 2019-11 Yes [id number] 10mg Take 1 [facility] mg tablet 0-29 tablet by ity o f 00:00: mouth (three) Medical times Branch daily as needed for Pain (scale 7-10). baclofen 2019-11 Yes [id number] 10mg Take 1 [facility] tablet 0-29 tablet by [facility] o f 00:00: mouth (three) Medical times Branch daily as needed for Pain (scale 7-10). baclofen 10 2019-11 Yes [id number] 10mg Take 1 [facility] mg tablet 0-29 tablet by [facility] o f 00:00: mouth 3 (three) Medical times Branch daily as needed for Pain (scale 7-10). baclofen 10 2019-11 Yes [id number] 10mg Take 1 [facility] mg tablet 0-29 tablet by [facility] o f 00:00: mouth (three) Medical times Branch daily as needed for Pain (scale 7-10). baclofen 10 2019-11 Yes [id number] 10mg Take 1 [facility] mg tablet 0-29 tablet by [facility] o f 00:00: mouth 3 (three) Medical times Branch daily as needed for Pain (scale 7-10). baclofen 10 2019-11 Yes [id number] 10mg Take 1 [facility] mg tablet 0-29 tablet by [facility] o f 00:00: mouth 3 (three) Medical times Branch daily as needed for Pain (scale 7-10). baclofen 10 2019-11 Yes [id number] 10mg Take 1 [facility] mg tablet 0-29 tablet by [facility] o f 00:00: mouth 3 (three) Medical times Branch daily as needed for Pain (scale 7-10). baclofen 10 2019-11 Yes [id number] 10mg Take 1 [facility] mg tablet 0-29 tablet by [facility] o f 00:00: mouth 3 (three) Medical times Branch daily as needed for Pain (scale 7-10). baclofen 10 2019-11 Yes [id number] 10mg Take 1 [facility] mg tablet 0-29 tablet by [facility] o f 00:00: mouth 3 (three) Medical times Branch daily as needed for Pain (scale 7-10). baclofen 10 2019-11 Yes [id number] 10mg Take 1 [facility] mg tablet 0-29 tablet by [facility] o f 00:00: mouth (three) Medical times Branch daily as needed for Pain (scale 7-10). baclofen 2019-11 Yes [id number] 10mg Take 1 [facility] mg tablet 0-29 tablet by [facility] o f 00:00: mouth 3 (three) Medical times Branch daily as needed for Pain (scale 7-10). baclofen 10 2019-11 Yes [id number] 10mg Take 1 [facility] mg tablet 0-29 tablet by [facility] o f 00:00: mouth 3 (three) Medical times Branch daily as needed for Pain (scale 7-10). naproxen 2019-11 Yes [id number] 500mg Take 1 [facility] 500 mg 0-29 tablet by [facility] tablet 00:00: mouth 2 (two) Medical times Branch daily with meals. baclofen 10 2019-11 Yes [id number] 10mg Take 1 [facility] mg tablet 0-29 tablet by [facility] o f 00:00: mouth 3 (three) Medical times Branch daily as needed for Pain (scale 7-10). naproxen 2019-11 Yes [id number] 500mg Take 1 [facility] 500 mg 0-29 tablet by [facility] of tablet 00:00: mouth 2 (two) Medical times [facility] daily with meals. baclofen 10 2019-11 Yes [id number] 10mg Take 1 [facility] mg tablet 0-29 tablet by [facility] o f 00:00: mouth 3 (three) Medical times Branch daily as needed for Pain (scale 7-10). naproxen 2019-11 Yes [id number] 500mg Take 1 [facility] 500 mg 0-29 tablet by [facility] of tablet 00:00: mouth (two) Medical times [facility] daily with meals. baclofen 10 2019-11 Yes [id number] 10mg Take 1 [facility] mg tablet 0-29 tablet by [facility] o f 00:00: mouth (three) Medical times [facility] daily as needed for Pain (scale 7-10). naproxen 2019-11 Yes [id number] 500mg Take 1 [facility] 500 mg 0-29 tablet by [facility] of tablet 00:00: mouth (two) Medical times Branch daily with meals. baclofen 10 2019-11 Yes [id number] 10mg Take 1 [facility] mg tablet 0-29 tablet by [facility] o f 00:00: mouth (three) Medical times Branch daily as needed for Pain (scale 7-10). naproxen 2019-11 Yes [id number] 500mg Take 1 [facility] 500 mg 0-29 tablet by [facility] of tablet 00:00: mouth (two) Medical times [facility] daily with meals. baclofen 10 2019-11 Yes [id number] 10mg Take 1 [facility] mg tablet 0-29 tablet by [facility] o f 00:00: mouth (three) Medical times Branch daily as needed for Pain (scale 7-10). naproxen 2019-11 Yes [id number] 500mg Take 1 [facility] 500 mg 0-29 tablet by [facility] of tablet 00:00: mouth (two) Medical times Branch daily with meals. baclofen 10 2019-11 Yes [id number] 10mg Take 1 [facility] mg tablet 0-29 tablet by [facility] o f 00:00: mouth (three) Medical times [facility] daily as needed for Pain (scale 7-10). naproxen 2019-11 Yes [id number] 500mg Take 1 [facility] 500 mg 0-29 tablet by [facility] of tablet 00:00: mouth (two) Medical times Branch daily with meals. baclofen 10 2019-11 Yes [id number] 10mg Take 1 [facility] mg tablet 0-29 tablet by [facility] o f 00:00: mouth (three) Medical times [facility] daily as needed for Pain (scale 7-10). naproxen 2019-11 Yes [id number] 500mg Take 1 [facility] 500 mg 0-29 tablet by [facility] of tablet 00:00: mouth (two) Medical times [facility] daily with meals. baclofen 10 2019-11 Yes [id number] 10mg Take 1 [facility] mg tablet 0-29 tablet by [facility] o f 00:00: mouth (three) Medical times [facility] daily as needed for Pain (scale 7-10). naproxen 2019-11 Yes [id number] 500mg Take 1 [facility] 500 mg 0-29 tablet by [facility] of tablet 00:00: mouth (two) Medical times Branch daily with meals. baclofen 10 2019-11 Yes [id number] 10mg Take 1 [facility] mg tablet 0-29 tablet by [facility] o f 00:00: mouth (three) Medical times [facility] daily as needed for Pain (scale 7-10). naproxen 2019-11 Yes [id number] 500mg Take 1 [facility] 500 mg 0-29 tablet by [facility] of tablet 00:00: mouth (two) Medical times [facility] daily with meals. baclofen 10 2019-11 Yes [id number] 10mg Take 1 [facility] mg tablet 0-29 tablet by [facility] o f 00:00: mouth (three) Medical times [facility] daily as needed for Pain (scale 7-10). naproxen 2019-11 Yes [id number] 500mg Take 1 [facility] 500 mg 0-29 tablet by [facility] of tablet 00:00: mouth (two) Medical times Branch daily with meals. baclofen 10 2019-11 Yes [id number] 10mg Take 1 [facility] mg tablet 0-29 tablet by [facility] o f 00:00: mouth (three) Medical times Branch daily as needed for Pain (scale 7-10). naproxen 2019-11 Yes [id number] 500mg Take 1 [facility] 500 mg 0-29 tablet by [facility] of tablet 00:00: mouth (two) Medical times Branch daily with meals. baclofen 10 2019-11 Yes [id number] 10mg Take 1 [facility] mg tablet 0-29 tablet by [facility] o f 00:00: mouth (three) Medical times Branch daily as needed for Pain (scale 7-10). naproxen 2019-11 Yes [id number] 500mg Take 1 [facility] 500 mg 0-29 tablet by [facility] of tablet 00:00: mouth (two) Medical times [facility] daily with meals. baclofen 10 2019-11 Yes [id number] 10mg Take 1 [facility] mg tablet 0-29 tablet by [facility] o f 00:00: mouth (three) Medical times Branch daily as needed for Pain (scale 7-10). naproxen 2019-11 Yes [id number] 500mg Take 1 [facility] 500 mg 0-29 tablet by [facility] of tablet 00:00: mouth (two) Medical times Branch daily with meals. baclofen 10 2019-11 Yes [id number] 10mg Take 1 [facility] mg tablet 0-29 tablet by [facility] o f 00:00: mouth (three) Medical times Branch daily as needed for Pain (scale 7-10). naproxen 2019-11 Yes [id number] 500mg Take 1 [facility] 500 mg 0-29 tablet by [facility] of tablet 00:00: mouth (two) Medical times Branch daily with meals. baclofen 10 2019-11 Yes [id number] 10mg Take 1 [facility] mg tablet 0-29 tablet by [facility] o f 00:00: mouth (three) Medical times [facility] daily as needed for Pain (scale 7-10). naproxen 2019-11 Yes [id number] 500mg Take 1 [facility] 500 mg 0-29 tablet by [facility] of tablet 00:00: mouth (two) Medical times Branch daily with meals. baclofen 10 2019-11 Yes [id number] 10mg Take 1 [facility] mg tablet 0-29 tablet by [facility] o f 00:00: mouth (three) Medical times Branch daily as needed for Pain (scale 7-10). naproxen 2019-11 Yes [id number] 500mg Take 1 [facility] 500 mg 0-29 tablet by [facility] of tablet 00:00: mouth (two) Medical times Branch daily with meals. baclofen 10 2019-11 Yes [id number] 10mg Take 1 [facility] mg tablet 0-29 tablet by [facility] o f 00:00: mouth (three) Medical times [facility] daily as needed for Pain (scale 7-10). naproxen 2019-11 Yes [id number] 500mg Take 1 [facility] 500 mg 0-29 tablet by [facility] of tablet 00:00: mouth 2 (two) Medical times Branch daily with meals. baclofen 10 2019-11 Yes [id number] 10mg Take 1 [facility] mg tablet 0-29 tablet by [facility] o f 00:00: mouth 3 (three) Medical times Branch daily as needed for Pain (scale 7-10). naproxen 2019-11 Yes [id number] 500mg Take 1 [facility] 500 mg 0-29 tablet by [facility] of tablet 00:00: mouth (two) Medical times Branch daily with meals. baclofen 10 2019-11 Yes [id number] 10mg Take 1 [facility] mg tablet 0-29 tablet by [facility] o f 00:00: mouth 3 (three) Medical times Branch daily as needed for Pain (scale 7-10). naproxen 2019-11 Yes [id number] 500mg Take 1 [facility] 500 mg 0-29 tablet by [facility] of tablet 00:00: mouth (two) Medical times Branch daily with meals. baclofen 10 2019-11 Yes [id number] 10mg Take 1 [facility] mg tablet 0-29 tablet by [facility] o f 00:00: mouth 3 (three) Medical times Branch daily as needed for Pain (scale 7-10). naproxen 2019-11- No [id number] 500mg Take 1 [facility] 500 mg 0-29 07-08 tablet by [facility] of tablet 00:00: 00:00 mouth 2 [place] 00 : (two) Medical times Branch daily with meals. naproxen 2019-11- No [id number] 500mg Take 1 [facility] 500 mg 0-29 07-08 tablet by it[facility] of tablet 00:00: 00:00 mouth 2 [place] : (two) Medical times Branch daily with meals. albuterol 2020- No Use 1 puff [facility] (PROAIR 8 08-06 by mouth ity of HFA) 90 15:48: 00:00 every 4 to [place] as mcg/actuati 31 :00 6 hours as Me dical on inhaler needed for Bra nch wheezing albuterol 2020-0 2020- No Use 1 puff [facility] (PROAIR 8-06 08-06 by mouth ity of HFA) 90 15:48: 00:00 every 4 to [place] as mcg/actuati 31 :00 6 hours as Me dical on inhaler needed for Bra nch wheezing albuterol 2020-0 2020- No Use 1 puff [facility] (PROAIR 8-06 08-06 by mouth ity of HFA) 90 15:48: 00:00 every 4 to [place] as mcg/actuati 31 :00 6 hours as Me dical on inhaler needed for Bra nch wheezing fluticasone 2020-0 2020- No 1{puff} Inhale 1 [facility] propion-tigist 8-06 08-06 Puff 2 ity o f meterol 15:48: 00:00 (two) [place] (ADVAIR 24 :00 times Medical DISKUS) daily. Branch 250-50 mcg/dose inhalation disk fluticasone 2020-0 2020- No 1{puff} Inhale 1 [facility] propion-tigist 8-06 08-06 Puff 2 ity o f meterol 15:48: 00:00 (two) [place] (ADVAIR 24 :00 times Medical DISKUS) daily. Branch 250-50 mcg/dose inhalation disk fluticasone 2020-0 2020- No 1{puff} Inhale 1 [facility] propion-tigist 8-06 08-06 Puff 2 ity o f meterol 15:48: 00:00 (two) [place] (ADVAIR 24 :00 times Medical DISKUS) daily. Branch 250-50 mcg/dose inhalation disk losartan 2020-0 Yes [id number] 100mg Take 1 [facility] mo[facility] 100 mg 8-06 tablet by ity of tablet 00:00: mouth [place] 00 daily. Medical Branch amLODIPine 2020-0 Yes [id number] 10mg Take 1 [facility] n[facility] 10 mg 8-06 tablet by ity of tablet 00:00: mouth [place] 00 daily. Medical Branch hydrALAZINE 2020-0 Yes [id number] 10mg Take 1 [facility] 10 mg 8-06 tablet by ity of tablet 00:00: mouth 2 [place] 00 (two) Medical times Branch daily. albuterol 2020-0 Yes [id number] 2{puff} Inhale 2 [facility] (PROAIR 8-06 Puffs ity of HFA) 90 00:00: every 4 [place] mcg/actuati 00 (four) Medica l on inhaler hours as Branc h needed for Wheezing or Shortness of Breath. Use 1 puff by mouth every 4 to 6 hours as needed for wheezing fluticasone 2020-0 Yes [id number] 1{puff} Inhale 1 [facility] propion-tigist 8-06 Puff every it y of meterol 00:00: 12 [place] (ADVAIR 00 (twelve) Medical DISKUS) hours. Branch 250-50 mcg/dose inhalation disk metoprolol 2020-0 Yes [id number] 50mg Take 1 [facility] nivers tartrate 50 8-06 tablet by ity of mg tablet 00:00: mouth 2 (two) Medical times Branch daily. citalopram 2020-0 Yes [id number] 20mg Take 1 [facility] n[facility] 20 mg 8-06 tablet by ity of tablet 00:00: mouth [place] 00 daily. Medical Branch losartan 2020-0 Yes [id number] 100mg Take 1 [facility] 100 mg 8-06 tablet by ity of tablet 00:00: mouth [place] 00 daily. Medical Branch amLODIPine 2020-0 Yes [id number] 10mg Take 1 [facility] nivers 10 mg 8-06 tablet by ity of tablet 00:00: mouth [place] 00 daily. Medical Branch hydrALAZINE 2020-0 Yes [id number] 10mg Take 1 [facility] 10 mg 8-06 tablet by ity of tablet 00:00: mouth 2 (two) Medical times Branch daily. albuterol 2020-0 Yes [id number] 2{puff} Inhale 2 [facility] (PROAIR 8-06 Puffs ity of HFA) 90 00:00: every 4 [place] mcg/actuati 00 (four) Medica l on inhaler hours as Branc h needed for Wheezing or Shortness of Breath. Use 1 puff by mouth every 4 to 6 hours as needed for wheezing fluticasone 2020-0 Yes [id number] 1{puff} Inhale 1 [facility] propion-tigist 8-06 Puff every it y of meterol 00:00: 12 [place] (ADVAIR 00 (twelve) Medical DISKUS) hours. Branch 250-50 mcg/dose inhalation disk metoprolol 2020-0 Yes [id number] 50mg Take 1 [facility] nivers tartrate 50 8-06 tablet by ity of mg tablet 00:00: mouth 2 [place] 00 (two) Medical times Branch daily. citalopram 2020-0 Yes [id number] 20mg Take 1 [facility] nivers 20 mg 8-06 tablet by ity of tablet 00:00: mouth [place] 00 daily. Medical Branch losartan 2020-0 Yes [id number] 100mg Take 1 [facility] mo[facility] 100 mg 8-06 tablet by ity of tablet 00:00: mouth [place] 00 daily. Medical Branch amLODIPine 2020-0 Yes [id number] 10mg Take 1 [facility] nivers 10 mg 8-06 tablet by ity of tablet 00:00: mouth [place] 00 daily. Medical Branch hydrALAZINE 2020-0 Yes [id number] 10mg Take 1 [facility] 10 mg 8-06 tablet by ity of tablet 00:00: mouth 2 (two) Medical times Branch daily. albuterol 2020-0 Yes [id number] 2{puff} Inhale 2 [facility] (PROAIR 8-06 Puffs ity of HFA) 90 00:00: every 4 [place] mcg/actuati 00 (four) Medica l on inhaler hours as Branc h needed for Wheezing or Shortness of Breath. Use 1 puff by mouth every 4 to 6 hours as needed for wheezing fluticasone 2020-0 Yes [id number] 1{puff} Inhale 1 [facility] propion-tigist 8-06 Puff every it y of meterol 00:00: 12 [place] (ADVAIR 00 (twelve) Medical DISKUS) hours. Branch 250-50 mcg/dose inhalation disk metoprolol 2020-0 Yes [id number] 50mg Take 1 [facility] nivers tartrate 50 8-06 tablet by ity of mg tablet 00:00: mouth 2 [place] 00 (two) Medical times Branch daily. citalopram 2020-0 Yes [id number] 20mg Take 1 [facility] n[facility] 20 mg 8-06 tablet by ity of tablet 00:00: mouth [place] 00 daily. Medical Branch losartan 2020-0 Yes [id number] 100mg Take 1 [facility] mo[facility] 100 mg 8-06 tablet by ity of tablet 00:00: mouth [place] 00 daily. Medical Branch amLODIPine 2020-0 Yes [id number] 10mg Take 1 [facility] nivers 10 mg 8-06 tablet by ity of tablet 00:00: mouth [place] 00 daily. Medical Branch hydrALAZINE 2020-0 Yes [id number] 10mg Take 1 [facility] 10 mg 8-06 tablet by ity of tablet 00:00: mouth 2 [place] 00 (two) Medical times Branch daily. albuterol 2020-0 Yes [id number] 2{puff} Inhale 2 [facility] (PROAIR 8-06 Puffs ity of HFA) 90 00:00: every 4 [place] mcg/actuati 00 (four) Medica l on inhaler hours as Branc h needed for Wheezing or Shortness of Breath. Use 1 puff by mouth every 4 to 6 hours as needed for wheezing fluticasone 2020-0 Yes [id number] 1{puff} Inhale 1 [facility] propion-tigist 8-06 Puff every it y of meterol 00:00: 12 [place] (ADVAIR 00 (twelve) Medical DISKUS) hours. Branch 250-50 mcg/dose inhalation disk metoprolol 2020-0 Yes [id number] 50mg Take 1 [facility] nivers tartrate 50 8-06 tablet by ity of mg tablet 00:00: mouth 2 [place] (two) Medical times Branch daily. citalopram 2020-0 Yes [id number] 20mg Take 1 [facility] nivers 20 mg 8-06 tablet by ity of tablet 00:00: mouth [place] 00 daily. Medical Branch losartan 2020-0 Yes [id number] 100mg Take 1 [facility] mo[facility] 100 mg 8-06 tablet by ity of tablet 00:00: mouth [place] 00 daily. Medical Branch amLODIPine 2020-0 Yes [id number] 10mg Take 1 [facility] nivers 10 mg 8-06 tablet by ity of tablet 00:00: mouth [place] 00 daily. Medical Branch hydrALAZINE 2020-0 Yes [id number] 10mg Take 1 [facility] 10 mg 8-06 tablet by ity of tablet 00:00: mouth 2 [place] 00 (two) Medical times Branch daily. albuterol 2020-0 Yes [id number] 2{puff} Inhale 2 [facility] (PROAIR 8-06 Puffs ity of HFA) 90 00:00: every 4 [place] mcg/actuati 00 (four) Medica l on inhaler hours as Branc h needed for Wheezing or Shortness of Breath. Use 1 puff by mouth every 4 to 6 hours as needed for wheezing fluticasone 2020-0 Yes [id number] 1{puff} Inhale 1 [facility] propion-tigist 8-06 Puff every it y of meterol 00:00: 12 [place] (ADVAIR 00 (twelve) Medical DISKUS) hours. Branch 250-50 mcg/dose inhalation disk metoprolol 2020-0 Yes [id number] 50mg Take 1 [facility] nivers tartrate 50 8-06 tablet by ity of mg tablet 00:00: mouth 2 (two) Medical times Branch daily. citalopram 2020-0 Yes [id number] 20mg Take 1 [facility] n[facility] 20 mg 8-06 tablet by ity of tablet 00:00: mouth [place] 00 daily. Medical Branch losartan 2020-0 Yes [id number] 100mg Take 1 [facility] mo[facility] 100 mg 8-06 tablet by ity of tablet 00:00: mouth [place] 00 daily. Medical Branch amLODIPine 2020-0 Yes [id number] 10mg Take 1 [facility] nivers 10 mg 8-06 tablet by ity of tablet 00:00: mouth [place] 00 daily. Medical Branch hydrALAZINE 2020-0 Yes [id number] 10mg Take 1 [facility] 10 mg 8-06 tablet by ity of tablet 00:00: mouth 2 (two) Medical times Branch daily. albuterol 2020-0 Yes [id number] 2{puff} Inhale 2 [facility] (PROAIR 8-06 Puffs ity of HFA) 90 00:00: every 4 [place] mcg/actuati 00 (four) Medica l on inhaler hours as Branc h needed for Wheezing or Shortness of Breath. Use 1 puff by mouth every 4 to 6 hours as needed for wheezing fluticasone 2020-0 Yes [id number] 1{puff} Inhale 1 [facility] propion-tigist 8-06 Puff every it y of meterol 00:00: 12 [place] (ADVAIR 00 (twelve) Medical DISKUS) hours. Branch 250-50 mcg/dose inhalation disk metoprolol 2020-0 Yes [id number] 50mg Take 1 [facility] nivers tartrate 50 8-06 tablet by ity of mg tablet 00:00: mouth 2 (two) Medical times Branch daily. citalopram 2020-0 Yes [id number] 20mg Take 1 [facility] nivers 20 mg 8-06 tablet by ity of tablet 00:00: mouth [place] 00 daily. Medical Branch losartan 2020-0 Yes [id number] 100mg Take 1 [facility] mo[facility] 100 mg 8-06 tablet by ity of tablet 00:00: mouth [place] 00 daily. Medical Branch amLODIPine 2020-0 Yes [id number] 10mg Take 1 [facility] nivers 10 mg 8-06 tablet by ity of tablet 00:00: mouth [place] 00 daily. Medical Branch hydrALAZINE 2020-0 Yes [id number] 10mg Take 1 [facility] 10 mg 8-06 tablet by ity of tablet 00:00: mouth 2 [place] 00 (two) Medical times Branch daily. albuterol 2020-0 Yes [id number] 2{puff} Inhale 2 [facility] (PROAIR 8-06 Puffs ity of HFA) 90 00:00: every 4 [place] mcg/actuati 00 (four) Medica l on inhaler hours as Branc h needed for Wheezing or Shortness of Breath. Use 1 puff by mouth every 4 to 6 hours as needed for wheezing fluticasone 2020-0 Yes [id number] 1{puff} Inhale 1 [facility] propion-tigist 8-06 Puff every it y of meterol 00:00: 12 [place] (ADVAIR 00 (twelve) Medical DISKUS) hours. Branch 250-50 mcg/dose inhalation disk metoprolol 2020-0 Yes [id number] 50mg Take 1 [facility] nivers tartrate 50 8-06 tablet by ity of mg tablet 00:00: mouth 2 (two) Medical times Branch daily. citalopram 2020-0 Yes [id number] 20mg Take 1 [facility] n[facility] 20 mg 8-06 tablet by ity of tablet 00:00: mouth [place] 00 daily. Medical Branch losartan 2020-0 Yes [id number] 100mg Take 1 [facility] mo[facility] 100 mg 8-06 tablet by ity of tablet 00:00: mouth 00 daily. Medical Branch amLODIPine 2020-0 Yes [id number] 10mg Take 1 [facility] nivers 10 mg 8-06 tablet by ity of tablet 00:00: mouth [place] 00 daily. Medical Branch hydrALAZINE 2020-0 Yes [id number] 10mg Take 1 [facility] 10 mg 8-06 tablet by ity of tablet 00:00: mouth 2 [place] 00 (two) Medical times Branch daily. albuterol 2020-0 Yes [id number] 2{puff} Inhale 2 [facility] (PROAIR 8-06 Puffs ity of HFA) 90 00:00: every 4 [place] mcg/actuati 00 (four) Medica l on inhaler hours as Branc h needed for Wheezing or Shortness of Breath. Use 1 puff by mouth every 4 to 6 hours as needed for wheezing fluticasone 2020-0 Yes [id number] 1{puff} Inhale 1 [facility] propion-tigist 8-06 Puff every it y of meterol 00:00: 12 [place] (ADVAIR 00 (twelve) Medical DISKUS) hours. Branch 250-50 mcg/dose inhalation disk metoprolol 2020-0 Yes [id number] 50mg Take 1 [facility] nivers tartrate 50 8-06 tablet by ity of mg tablet 00:00: mouth 2 (two) Medical times Branch daily. citalopram 2020-0 Yes [id number] 20mg Take 1 [facility] n[facility] 20 mg 8-06 tablet by ity of tablet 00:00: mouth [place] 00 daily. Medical Branch losartan 2020-0 Yes [id number] 100mg Take 1 [facility] 100 mg 8-06 tablet by ity of tablet 00:00: mouth [place] 00 daily. Medical Branch amLODIPine 2020-0 Yes [id number] 10mg Take 1 [facility] nivers 10 mg 8-06 tablet by ity of tablet 00:00: mouth [place] 00 daily. Medical Branch hydrALAZINE 2020-0 Yes [id number] 10mg Take 1 [facility] 10 mg 8-06 tablet by ity of tablet 00:00: mouth 2 [place] (two) Medical times Branch daily. albuterol 2020-0 Yes [id number] 2{puff} Inhale 2 [facility] (PROAIR 8-06 Puffs ity of HFA) 90 00:00: every 4 [place] mcg/actuati 00 (four) Medica l on inhaler hours as Branc h needed for Wheezing or Shortness of Breath. Use 1 puff by mouth every 4 to 6 hours as needed for wheezing fluticasone 2020-0 Yes [id number] 1{puff} Inhale 1 [facility] propion-tigist 8-06 Puff every it y of meterol 00:00: 12 [place] (ADVAIR 00 (twelve) Medical DISKUS) hours. Branch 250-50 mcg/dose inhalation disk metoprolol 2020-0 Yes [id number] 50mg Take 1 [facility] nivers tartrate 50 8-06 tablet by ity of mg tablet 00:00: mouth 2 [place] (two) Medical times Branch daily. citalopram 2020-0 Yes [id number] 20mg Take 1 [facility] n[facility] 20 mg 8-06 tablet by ity of tablet 00:00: mouth [place] 00 daily. Medical Branch losartan 2020-0 Yes [id number] 100mg Take 1 [facility] 100 mg 8-06 tablet by ity of tablet 00:00: mouth [place] 00 daily. Medical Branch amLODIPine 2020-0 Yes [id number] 10mg Take 1 [facility] n[facility] 10 mg 8-06 tablet by ity of tablet 00:00: mouth [place] 00 daily. Medical Branch hydrALAZINE 2020-0 Yes [id number] 10mg Take 1 [facility] 10 mg 8-06 tablet by ity of tablet 00:00: mouth 2 (two) Medical times Branch daily. albuterol 2020-0 Yes [id number] 2{puff} Inhale 2 [facility] (PROAIR 8-06 Puffs ity of HFA) 90 00:00: every 4 [place] mcg/actuati 00 (four) Medica l on inhaler hours as Branc h needed for Wheezing or Shortness of Breath. Use 1 puff by mouth every 4 to 6 hours as needed for wheezing fluticasone 2020-0 Yes [id number] 1{puff} Inhale 1 [facility] propion-tigist 8-06 Puff every it y of meterol 00:00: 12 [place] (ADVAIR 00 (twelve) Medical DISKUS) hours. Branch 250-50 mcg/dose inhalation disk metoprolol 2020-0 Yes [id number] 50mg Take 1 [facility] nivers tartrate 50 8-06 tablet by ity of mg tablet 00:00: mouth 2 [place] (two) Medical times Branch daily. losartan 2020-0 Yes [id number] 100mg Take 1 [facility] [place] 100 mg 8-06 tablet by ity of tablet 00:00: mouth [place] 00 daily. Medical Branch amLODIPine 2020-0 Yes [id number] 10mg Take 1 [facility] 10 mg 8-06 tablet by ity of tablet 00:00: mouth [place] 00 daily. Medical Branch hydrALAZINE 2020-0 Yes [id number] 10mg Take 1 [facility] 10 mg 8-06 tablet by ity of tablet 00:00: mouth 2 [place] 00 (two) Medical times Branch daily. albuterol 2020-0 Yes [id number] 2{puff} Inhale 2 [facility] (PROAIR 8-06 Puffs ity of HFA) 90 00:00: every 4 [place] mcg/actuati 00 (four) Medica l on inhaler hours as Branc h needed for Wheezing or Shortness of Breath. Use 1 puff by mouth every 4 to 6 hours as needed for wheezing fluticasone 2020-0 Yes [id number] 1{puff} Inhale 1 [facility] propion-tigist 8-06 Puff every it y of meterol 00:00: 12 [place] (ADVAIR 00 (twelve) Medical DISKUS) hours. Branch 250-50 mcg/dose inhalation disk metoprolol 2020-0 Yes [id number] 50mg Take 1 [facility] nivers tartrate 50 8-06 tablet by ity of mg tablet 00:00: mouth 2 [place] (two) Medical times Branch daily. losartan 2020-0 Yes [id number] 100mg Take 1 [facility] [place] 100 mg 8-06 tablet by ity of tablet 00:00: mouth [place] 00 daily. Medical Branch amLODIPine 2020-0 Yes [id number] 10mg Take 1 [facility] n[facility] 10 mg 8-06 tablet by ity of tablet 00:00: mouth [place] 00 daily. Medical Branch hydrALAZINE 2020-0 Yes [id number] 10mg Take 1 [facility] 10 mg 8-06 tablet by ity of tablet 00:00: mouth 2 [place] (two) Medical times Branch daily. albuterol 2020-0 Yes [id number] 2{puff} Inhale 2 [facility] (PROAIR 8-06 Puffs ity of HFA) 90 00:00: every 4 [place] mcg/actuati 00 (four) Medica l on inhaler hours as Branc h needed for Wheezing or Shortness of Breath. Use 1 puff by mouth every 4 to 6 hours as needed for wheezing fluticasone 2020-0 Yes [id number] 1{puff} Inhale 1 [facility] propion-tigist 8-06 Puff every it y of meterol 00:00: 12 [place] (ADVAIR 00 (twelve) Medical DISKUS) hours. Branch 250-50 mcg/dose inhalation disk metoprolol 2020-0 Yes [id number] 50mg Take 1 [facility] nivers tartrate 50 8-06 tablet by ity of mg tablet 00:00: mouth 2 [place] (two) Medical times Branch daily. losartan 2020-0 Yes [id number] 100mg Take 1 [facility] [place] 100 mg 8-06 tablet by ity of tablet 00:00: mouth [place] 00 daily. Medical Branch amLODIPine 2020-0 Yes [id number] 10mg Take 1 [facility] 10 mg 8-06 tablet by ity of tablet 00:00: mouth [place] 00 daily. Medical Branch hydrALAZINE 2020-0 Yes [id number] 10mg Take 1 [facility] 10 mg 8-06 tablet by ity of tablet 00:00: mouth 2 (two) Medical times Branch daily. albuterol 2020-0 Yes [id number] 2{puff} Inhale 2 [facility] (PROAIR 8-06 Puffs ity of HFA) 90 00:00: every 4 [place] mcg/actuati 00 (four) Medica l on inhaler hours as Branc h needed for Wheezing or Shortness of Breath. Use 1 puff by mouth every 4 to 6 hours as needed for wheezing fluticasone 2020-0 Yes [id number] 1{puff} Inhale 1 [facility] propion-tigist 8-06 Puff every it y of meterol 00:00: 12 [place] (ADVAIR 00 (twelve) Medical DISKUS) hours. Branch 250-50 mcg/dose inhalation disk metoprolol 2020-0 Yes [id number] 50mg Take 1 [facility] nivers tartrate 50 8-06 tablet by ity of mg tablet 00:00: mouth 2 (two) Medical times Branch daily. losartan 2020-0 Yes [id number] 100mg Take 1 [facility] 100 mg 8-06 tablet by ity of tablet 00:00: mouth 00 daily. Medical Branch amLODIPine 2020-0 Yes [id number] 10mg Take 1 [facility] nivers 10 mg 8-06 tablet by ity of tablet 00:00: mouth [place] 00 daily. Medical Branch hydrALAZINE 2020-0 Yes [id number] 10mg Take 1 [facility] 10 mg 8-06 tablet by ity of tablet 00:00: mouth 2 [place] 00 (two) Medical times Branch daily. albuterol 2020-0 Yes [id number] 2{puff} Inhale 2 [facility] (PROAIR 8-06 Puffs ity of HFA) 90 00:00: every 4 [place] mcg/actuati 00 (four) Medica l on inhaler hours as Branc h needed for Wheezing or Shortness of Breath. Use 1 puff by mouth every 4 to 6 hours as needed for wheezing fluticasone 2020-0 Yes [id number] 1{puff} Inhale 1 [facility] propion-tigist 8-06 Puff every it y of meterol 00:00: 12 [place] (ADVAIR () Medical DISKUS) hours. Branch 250-50 mcg/dose inhalation disk hydrALAZINE 2020-0 Yes [id number] 10mg Take 1 [facility] 10 mg 8-06 tablet by ity of tablet 00:00: mouth 2 [place] (two) Medical times Branch daily. albuterol 2020-0 Yes [id number] 2{puff} Inhale 2 [facility] (PROAIR 8-06 Puffs ity of HFA) 90 00:00: every 4 [place] mcg/actuati 00 (four) Medica l on inhaler hours as Branc h needed for Wheezing or Shortness of Breath. Use 1 puff by mouth every 4 to 6 hours as needed for wheezing fluticasone 2020-0 Yes [id number] 1{puff} Inhale 1 [facility] propion-tigist 8-06 Puff every it y of meterol 00:00: 12 [place] (ADVAIR () Medical DISKUS) hours. Branch 250-50 mcg/dose inhalation disk hydrALAZINE 2020-0 Yes [id number] 10mg Take 1 [facility] 10 mg 8-06 tablet by ity of tablet 00:00: mouth 2 [place] [address] (two) Medical times Branch daily. albuterol 2020-0 Yes [id number] 2{puff} Inhale 2 [facility] (PROAIR 8-06 Puffs ity of HFA) 90 00:00: every 4 [place] mcg/actuati 00 (four) Medica l on inhaler hours as Branc h needed for Wheezing or Shortness of Breath. Use 1 puff by mouth every 4 to 6 hours as needed for wheezing fluticasone 2020-0 Yes [id number] 1{puff} Inhale 1 [facility] propion-tigist 8-06 Puff every it y of meterol 00:00: 12 [place] (ADVAIR () Medical DISKUS) hours. Branch 250-50 mcg/dose inhalation disk hydrALAZINE 2020-0 Yes [id number] 10mg Take 1 [facility] 10 mg 8-06 tablet by ity of tablet 00:00: mouth 2 [place] (two) Medical times Branch daily. albuterol 2020-0 Yes [id number] 2{puff} Inhale 2 [facility] (PROAIR 8-06 Puffs ity of HFA) 90 00:00: every 4 [place] mcg/actuati 00 (four) Medica l on inhaler hours as Branc h needed for Wheezing or Shortness of Breath. Use 1 puff by mouth every 4 to 6 hours as needed for wheezing fluticasone 2020-0 Yes [id number] 1{puff} Inhale 1 [facility] propion-tigist 8-06 Puff every it y of meterol 00:00: 12 [place] (ADVAIR () Medical DISKUS) hours. Branch 250-50 mcg/dose inhalation disk hydrALAZINE 2020-0 Yes [id number] 10mg Take 1 [facility] 10 mg 8-06 tablet by ity of tablet 00:00: mouth 2 [place] (two) Medical times Branch daily. albuterol 2020-0 Yes [id number] 2{puff} Inhale 2 [facility] (PROAIR 8-06 Puffs ity of HFA) 90 00:00: every 4 [place] mcg/actuati 00 (four) Medica l on inhaler hours as Branc h needed for Wheezing or Shortness of Breath. Use 1 puff by mouth every 4 to 6 hours as needed for wheezing fluticasone 2020-0 Yes [id number] 1{puff} Inhale 1 [facility] propion-tigist 8-06 Puff every it y of meterol 00:00: 12 [place] (ADVAIR () Medical DISKUS) hours. Branch 250-50 mcg/dose inhalation disk hydrALAZINE 2020-0 Yes [id number] 10mg Take 1 [facility] 10 mg 8-06 tablet by ity of tablet 00:00: mouth 2 [place] (two) Medical times Branch daily. albuterol 2020-0 Yes [id number] 2{puff} Inhale 2 [facility] (PROAIR 8-06 Puffs ity of HFA) 90 00:00: every 4 [place] mcg/actuati 00 (four) Medica l on inhaler hours as Branc h needed for Wheezing or Shortness of Breath. Use 1 puff by mouth every 4 to 6 hours as needed for wheezing fluticasone 2020-0 Yes [id number] 1{puff} Inhale 1 [facility] propion-tigist 8-06 Puff every it y of meterol 00:00: 12 [place] (ADVAIR (twelve) Medical DISKUS) hours. Branch 250-50 mcg/dose inhalation disk hydrALAZINE 2020-0 Yes [id number] 10mg Take 1 [facility] 10 mg 8-06 tablet by ity of tablet 00:00: mouth 2 [place] () Medical times Branch daily. albuterol 2020-0 Yes [id number] 2{puff} Inhale 2 [facility] (PROAIR 8-06 Puffs ity of HFA) 90 00:00: every 4 [place] mcg/actuati 00 (four) Medica l on inhaler hours as Branc h needed for Wheezing or Shortness of Breath. Use 1 puff by mouth every 4 to 6 hours as needed for wheezing fluticasone 2020-0 Yes [id number] 1{puff} Inhale 1 [facility] propion-tigist 8-06 Puff every it y of meterol 00:00: 12 [place] (ADVAIR () Medical DISKUS) hours. Branch 250-50 mcg/dose inhalation disk hydrALAZINE 2020-0 Yes [id number] 10mg Take 1 [facility] 10 mg 8-06 tablet by ity of tablet 00:00: mouth 2 [place] () Medical times Branch daily. albuterol 2020-0 Yes [id number] 2{puff} Inhale 2 [facility] (PROAIR 8-06 Puffs ity of HFA) 90 00:00: every 4 [place] mcg/actuati 00 (four) Medica l on inhaler hours as Branc h needed for Wheezing or Shortness of Breath. Use 1 puff by mouth every 4 to 6 hours as needed for wheezing fluticasone 2020-0 Yes [id number] 1{puff} Inhale 1 [facility] propion-tigist 8-06 Puff every it y of meterol 00:00: 12 [place] (ADVAIR () Medical DISKUS) hours. Branch 250-50 mcg/dose inhalation disk metoprolol 2020-0 Yes [id number] 50mg Take 1 [facility] n[facility] tartrate 50 8-06 tablet by ity of mg tablet 00:00: mouth 2 [place] (two) Medical times Branch daily. citalopram 2020-0 Yes [id number] 20mg Take 1 [facility] 20 mg 8-06 tablet by ity of tablet 00:00: mouth [place] daily. Medical Branch losartan 2020-0 Yes [id number] 100mg Take 1 [facility] 100 mg 8-06 tablet by ity of tablet 00:00: mouth [place] 00 daily. Medical [facility] amLODIPine 2020-0 Yes [id number] 10mg Take 1 [facility] 10 mg 8-06 tablet by ity of tablet 00:00: mouth [place] 00 daily. Medical Branch hydrALAZINE 2020-0 Yes [id number] 10mg Take 1 [facility] 10 mg 8-06 tablet by ity of tablet 00:00: mouth 2 [place] 00 (two) Medical times Branch daily. albuterol 2020-0 Yes [id number] 2{puff} Inhale 2 [facility] (PROAIR 8-06 Puffs ity of HFA) 90 00:00: every 4 [place] mcg/actuati 00 (four) Medica l on inhaler hours as Branc h needed for Wheezing or Shortness of Breath. Use 1 puff by mouth every 4 to 6 hours as needed for wheezing fluticasone 2020-0 Yes [id number] 1{puff} Inhale 1 [facility] propion-tigist 8-06 Puff every it y of meterol 00:00: 12 [place] (ADVAIR 00 (twelve) Medical DISKUS) hours. Branch 250-50 mcg/dose inhalation disk metoprolol 2020-0 Yes [id number] 50mg Take 1 [facility] n[facility] tartrate 50 8-06 tablet by ity of mg tablet 00:00: mouth 2 (two) Medical times Branch daily. citalopram 2020-0 Yes [id number] 20mg Take 1 [facility] 20 mg 8-06 tablet by ity of tablet 00:00: mouth [place] 00 daily. Medical Branch losartan 2020-0 Yes [id number] 100mg Take 1 [facility] 100 mg 8-06 tablet by ity of tablet 00:00: mouth [place] 00 daily. Medical Branch amLODIPine 2020-0 Yes [id number] 10mg Take 1 [facility] 10 mg 8-06 tablet by ity of tablet 00:00: mouth [place] 00 daily. Medical [facility] hydrALAZINE 2020-0 Yes [id number] 10mg Take 1 [facility] 10 mg 8-06 tablet by ity of tablet 00:00: mouth 2 [place] 00 (two) Medical times Branch daily. albuterol 2020-0 Yes [id number] 2{puff} Inhale 2 [facility] (PROAIR 8-06 Puffs ity of HFA) 90 00:00: every 4 [place] mcg/actuati 00 (four) Medica l on inhaler hours as Branc h needed for Wheezing or Shortness of Breath. Use 1 puff by mouth every 4 to 6 hours as needed for wheezing fluticasone 2020-0 Yes [id number] 1{puff} Inhale 1 [facility] propion-tigist 8-06 Puff every it y of meterol 00:00: 12 [place] (ADVAIR 00 (twelve) Medical DISKUS) hours. Branch 250-50 mcg/dose inhalation disk metoprolol 2020-0 Yes [id number] 50mg Take 1 [facility] n[facility] tartrate 50 8-06 tablet by ity of mg tablet 00:00: mouth 2 (two) Medical times Branch daily. citalopram 2020-0 Yes [id number] 20mg Take 1 [facility] 20 mg 8-06 tablet by ity of tablet 00:00: mouth [place] 00 daily. Medical Branch losartan 2020-0 Yes [id number] 100mg Take 1 [facility] 100 mg 8-06 tablet by ity of tablet 00:00: mouth [place] 00 daily. Medical Branch amLODIPine 2020-0 Yes [id number] 10mg Take 1 [facility] n[facility] 10 mg 8-06 tablet by ity of tablet 00:00: mouth [place] 00 daily. Medical Branch hydrALAZINE 2020-0 Yes [id number] 10mg Take 1 [facility] 10 mg 8-06 tablet by ity of tablet 00:00: mouth 2 (two) Medical times Branch daily. albuterol 2020-0 Yes [id number] 2{puff} Inhale 2 [facility] (PROAIR 8-06 Puffs ity of HFA) 90 00:00: every 4 [place] mcg/actuati 00 (four) Medica l on inhaler hours as Branc h needed for Wheezing or Shortness of Breath. Use 1 puff by mouth every 4 to 6 hours as needed for wheezing fluticasone 2020-0 Yes [id number] 1{puff} Inhale 1 [facility] propion-tigist 8-06 Puff every it y of meterol 00:00: 12 [place] (ADVAIR 00 (twelve) Medical DISKUS) hours. Branch 250-50 mcg/dose inhalation disk metoprolol 2020-0 Yes [id number] 50mg Take 1 [facility] nivers tartrate 50 8-06 tablet by ity of mg tablet 00:00: mouth 2 (two) Medical times Branch daily. citalopram 2020-0 Yes [id number] 20mg Take 1 [facility] n[facility] 20 mg 8-06 tablet by ity of tablet 00:00: mouth [place] 00 daily. Medical Branch losartan 2020-0 Yes [id number] 100mg Take 1 [facility] 100 mg 8-06 tablet by ity of tablet 00:00: mouth [place] 00 daily. Medical Branch amLODIPine 2020-0 Yes [id number] 10mg Take 1 [facility] n[facility] 10 mg 8-06 tablet by ity of tablet 00:00: mouth [place] 00 daily. Medical Branch hydrALAZINE 2020-0 Yes [id number] 10mg Take 1 [facility] 10 mg 8-06 tablet by ity of tablet 00:00: mouth 2 (two) Medical times Branch daily. albuterol 2020-0 Yes [id number] 2{puff} Inhale 2 [facility] (PROAIR 8-06 Puffs ity of HFA) 90 00:00: every 4 [place] mcg/actuati 00 (four) Medica l on inhaler hours as Branc h needed for Wheezing or Shortness of Breath. Use 1 puff by mouth every 4 to 6 hours as needed for wheezing fluticasone 2020-0 Yes [id number] 1{puff} Inhale 1 [facility] propion-tigist 8-06 Puff every it y of meterol 00:00: 12 [place] (ADVAIR 00 (twelve) Medical DISKUS) hours. Branch 250-50 mcg/dose inhalation disk metoprolol 2020-0 Yes [id number] 50mg Take 1 [facility] n[facility] tartrate 50 8-06 tablet by ity of mg tablet 00:00: mouth 2 (two) Medical times Branch daily. citalopram 2020-0 Yes [id number] 20mg Take 1 [facility] 20 mg 8-06 tablet by ity of tablet 00:00: mouth [place] 00 daily. Medical Branch losartan 2020-0 Yes [id number] 100mg Take 1 [facility] 100 mg 8-06 tablet by ity of tablet 00:00: mouth [place] 00 daily. Medical [facility] amLODIPine 2020-0 Yes [id number] 10mg Take 1 [facility] n[facility] 10 mg 8-06 tablet by ity of tablet 00:00: mouth [place] 00 daily. Medical [facility] hydrALAZINE 2020-0 Yes [id number] 10mg Take 1 [facility] 10 mg 8-06 tablet by ity of tablet 00:00: mouth 2 (two) Medical times Branch daily. albuterol 2020-0 Yes [id number] 2{puff} Inhale 2 [facility] (PROAIR 8-06 Puffs ity of HFA) 90 00:00: every 4 [place] mcg/actuati 00 (four) Medica l on inhaler hours as Branc h needed for Wheezing or Shortness of Breath. Use 1 puff by mouth every 4 to 6 hours as needed for wheezing fluticasone 2020-0 Yes [id number] 1{puff} Inhale 1 [facility] propion-tigist 8-06 Puff every it y of meterol 00:00: 12 [place] (ADVAIR 00 (twelve) Medical DISKUS) hours. Branch 250-50 mcg/dose inhalation disk metoprolol 2020-0 Yes [id number] 50mg Take 1 [facility] n[facility] tartrate 50 8-06 tablet by ity of mg tablet 00:00: mouth 2 (two) Medical times Branch daily. citalopram 2020-0 Yes [id number] 20mg Take 1 [facility] 20 mg 8-06 tablet by ity of tablet 00:00: mouth 00 daily. Medical Branch losartan 2020-0 Yes [id number] 100mg Take 1 [facility] 100 mg 8-06 tablet by ity of tablet 00:00: mouth 00 daily. Medical Branch amLODIPine 2020-0 Yes [id number] 10mg Take 1 [facility] 10 mg 8-06 tablet by ity of tablet 00:00: mouth 00 daily. Medical Branch hydrALAZINE 2020-0 Yes [id number] 10mg Take 1 [facility] 10 mg 8-06 tablet by ity of tablet 00:00: mouth 2 (two) Medical times Branch daily. albuterol 2020-0 Yes [id number] 2{puff} Inhale 2 [facility] (PROAIR 8-06 Puffs ity of HFA) 90 00:00: every 4 [place] mcg/actuati 00 (four) Medica l on inhaler hours as Branc h needed for Wheezing or Shortness of Breath. Use 1 puff by mouth every 4 to 6 hours as needed for wheezing fluticasone 2020-0 Yes [id number] 1{puff} Inhale 1 [facility] propion-tigist 8-06 Puff every it y of meterol 00:00: 12 [place] (ADVAIR 00 (twelve) Medical DISKUS) hours. Branch 250-50 mcg/dose inhalation disk metoprolol 2020-0 Yes [id number] 50mg Take 1 [facility] n[facility] tartrate 50 8-06 tablet by ity of mg tablet 00:00: mouth 2 (two) Medical times Branch daily. citalopram 2020-0 Yes [id number] 20mg Take 1 [facility] 20 mg 8-06 tablet by ity of tablet 00:00: mouth [place] 00 daily. Medical Branch losartan 2020-0 Yes [id number] 100mg Take 1 [facility] 100 mg 8-06 tablet by ity of tablet 00:00: mouth [place] 00 daily. Medical Branch amLODIPine 2020-0 Yes [id number] 10mg Take 1 [facility] 10 mg 8-06 tablet by ity of tablet 00:00: mouth [place] 00 daily. Medical [facility] hydrALAZINE 2020-0 Yes [id number] 10mg Take 1 [facility] 10 mg 8-06 tablet by ity of tablet 00:00: mouth 2 (two) Medical times Branch daily. albuterol 2020-0 Yes [id number] 2{puff} Inhale 2 [facility] (PROAIR 8-06 Puffs ity of HFA) 90 00:00: every 4 [place] mcg/actuati 00 (four) Medica l on inhaler hours as Branc h needed for Wheezing or Shortness of Breath. Use 1 puff by mouth every 4 to 6 hours as needed for wheezing fluticasone 2020-0 Yes [id number] 1{puff} Inhale 1 [facility] propion-tigist 8-06 Puff every it y of meterol 00:00: 12 [place] (ADVAIR 00 (twelve) Medical DISKUS) hours. Branch 250-50 mcg/dose inhalation disk metoprolol 2020-0 Yes [id number] 50mg Take 1 [facility] n[facility] tartrate 50 8-06 tablet by ity of mg tablet 00:00: mouth 2 (two) Medical times Branch daily. citalopram 2020-0 Yes [id number] 20mg Take 1 [facility] 20 mg 8-06 tablet by ity of tablet 00:00: mouth [place] 00 daily. Medical Branch losartan 2020-0 Yes [id number] 100mg Take 1 [facility] 100 mg 8-06 tablet by ity of tablet 00:00: mouth [place] 00 daily. Medical Branch amLODIPine 2020-0 Yes [id number] 10mg Take 1 [facility] 10 mg 8-06 tablet by ity of tablet 00:00: mouth [place] 00 daily. Medical [facility] hydrALAZINE 2020-0 Yes [id number] 10mg Take 1 [facility] 10 mg 8-06 tablet by ity of tablet 00:00: mouth 2 [place] (two) Medical times Branch daily. albuterol 2020-0 Yes [id number] 2{puff} Inhale 2 [facility] (PROAIR 8-06 Puffs ity of HFA) 90 00:00: every 4 [place] mcg/actuati 00 (four) Medica l on inhaler hours as Branc h needed for Wheezing or Shortness of Breath. Use 1 puff by mouth every 4 to 6 hours as needed for wheezing fluticasone 2020-0 Yes [id number] 1{puff} Inhale 1 [facility] propion-tigist 8-06 Puff every it y of meterol 00:00: 12 [place] (ADVAIR 00 (twelve) Medical DISKUS) hours. Branch 250-50 mcg/dose inhalation disk metoprolol 2020-0 Yes [id number] 50mg Take 1 [facility] n[facility] tartrate 50 8-06 tablet by ity of mg tablet 00:00: mouth 2 (two) Medical times Branch daily. citalopram 2020-0 Yes [id number] 20mg Take 1 [facility] 20 mg 8-06 tablet by ity of tablet 00:00: mouth 00 daily. Medical Branch losartan 2020-0 Yes [id number] 100mg Take 1 [facility] 100 mg 8-06 tablet by ity of tablet 00:00: mouth 00 daily. Medical Branch amLODIPine 2020-0 Yes [id number] 10mg Take 1 [facility] 10 mg 8-06 tablet by ity of tablet 00:00: mouth 00 daily. Medical Branch hydrALAZINE 2020-0 Yes [id number] 10mg Take 1 [facility] 10 mg 8-06 tablet by ity of tablet 00:00: mouth 2 [place] 00 (two) Medical times Branch daily. albuterol 2020-0 Yes [id number] 2{puff} Inhale 2 [facility] (PROAIR 8-06 Puffs ity of HFA) 90 00:00: every 4 [place] mcg/actuati 00 (four) Medica l on inhaler hours as Branc h needed for Wheezing or Shortness of Breath. Use 1 puff by mouth every 4 to 6 hours as needed for wheezing fluticasone 2020-0 Yes [id number] 1{puff} Inhale 1 [facility] propion-tigist 8-06 Puff every it y of meterol 00:00: 12 [place] (ADVAIR 00 (twelve) Medical DISKUS) hours. Branch 250-50 mcg/dose inhalation disk metoprolol 2020-0 Yes [id number] 50mg Take 1 [facility] n[facility] tartrate 50 8-06 tablet by ity of mg tablet 00:00: mouth 2 [place] (two) Medical times Branch daily. citalopram 2020-0 Yes [id number] 20mg Take 1 [facility] 20 mg 8-06 tablet by ity of tablet 00:00: mouth [place] 00 daily. Medical Branch losartan 2020-0 Yes [id number] 100mg Take 1 [facility] 100 mg 8-06 tablet by ity of tablet 00:00: mouth [place] 00 daily. Medical [facility] amLODIPine 2020-0 Yes [id number] 10mg Take 1 [facility] 10 mg 8-06 tablet by ity of tablet 00:00: mouth [place] 00 daily. Medical [facility] hydrALAZINE 2020-0 Yes [id number] 10mg Take 1 [facility] 10 mg 8-06 tablet by ity of tablet 00:00: mouth 2 [place] (two) Medical times Branch daily. albuterol 2020-0 Yes [id number] 2{puff} Inhale 2 [facility] (PROAIR 8-06 Puffs ity of HFA) 90 00:00: every 4 [place] mcg/actuati 00 (four) Medica l on inhaler hours as Branc h needed for Wheezing or Shortness of Breath. Use 1 puff by mouth every 4 to 6 hours as needed for wheezing fluticasone 2020-0 Yes [id number] 1{puff} Inhale 1 [facility] propion-tigist 8-06 Puff every it y of meterol 00:00: 12 [place] (ADVAIR 00 (twelve) Medical DISKUS) hours. Branch 250-50 mcg/dose inhalation disk metoprolol 2020-0 Yes [id number] 50mg Take 1 [facility] nivers tartrate 50 8-06 tablet by ity of mg tablet 00:00: mouth 2 [place] (two) Medical times Branch daily. citalopram 2020-0 Yes [id number] 20mg Take 1 [facility] 20 mg 8-06 tablet by ity of tablet 00:00: mouth [place] 00 daily. Medical Branch losartan 2020-0 Yes [id number] 100mg Take 1 [facility] 100 mg 8-06 tablet by ity of tablet 00:00: mouth [place] 00 daily. Medical [facility] amLODIPine 2020-0 Yes [id number] 10mg Take 1 [facility] 10 mg 8-06 tablet by ity of tablet 00:00: mouth [place] 00 daily. Medical [facility] hydrALAZINE 2020-0 Yes [id number] 10mg Take 1 [facility] 10 mg 8-06 tablet by ity of tablet 00:00: mouth 2 00 (two) Medical times Branch daily. albuterol 2020-0 Yes [id number] 2{puff} Inhale 2 [facility] (PROAIR 8-06 Puffs ity of HFA) 90 00:00: every 4 [place] mcg/actuati 00 (four) Medica l on inhaler hours as Branc h needed for Wheezing or Shortness of Breath. Use 1 puff by mouth every 4 to 6 hours as needed for wheezing fluticasone 2020-0 Yes [id number] 1{puff} Inhale 1 [facility] propion-tigist 8-06 Puff every it y of meterol 00:00: 12 [place] (ADVAIR 00 (twelve) Medical DISKUS) hours. Branch 250-50 mcg/dose inhalation disk metoprolol 2020-0 Yes [id number] 50mg Take 1 [facility] n[facility] tartrate 50 8-06 tablet by ity of mg tablet 00:00: mouth 2 (two) Medical times Branch daily. citalopram 2020-0 Yes [id number] 20mg Take 1 [facility] 20 mg 8-06 tablet by ity of tablet 00:00: mouth [place] 00 daily. Medical Branch losartan 2020-0 Yes [id number] 100mg Take 1 [facility] 100 mg 8-06 tablet by ity of tablet 00:00: mouth [place] 00 daily. Medical [facility] amLODIPine 2020-0 Yes [id number] 10mg Take 1 [facility] 10 mg 8-06 tablet by ity of tablet 00:00: mouth [place] 00 daily. Medical Branch hydrALAZINE 2020-0 Yes [id number] 10mg Take 1 [facility] 10 mg 8-06 tablet by ity of tablet 00:00: mouth 2 [place] 00 (two) Medical times Branch daily. albuterol 2020-0 Yes [id number] 2{puff} Inhale 2 [facility] (PROAIR 8-06 Puffs ity of HFA) 90 00:00: every 4 [place] mcg/actuati 00 (four) Medica l on inhaler hours as Branc h needed for Wheezing or Shortness of Breath. Use 1 puff by mouth every 4 to 6 hours as needed for wheezing fluticasone 2020-0 Yes [id number] 1{puff} Inhale 1 [facility] propion-tigist 8-06 Puff every it y of meterol 00:00: 12 [place] (ADVAIR 00 (twelve) Medical DISKUS) hours. Branch 250-50 mcg/dose inhalation disk metoprolol 2020-0 Yes [id number] 50mg Take 1 [facility] nivers tartrate 50 8-06 tablet by ity of mg tablet 00:00: mouth 2 (two) Medical times Branch daily. citalopram 2020-0 Yes [id number] 20mg Take 1 [facility] 20 mg 8-06 tablet by ity of tablet 00:00: mouth 00 daily. Medical Branch losartan 2020-0 Yes [id number] 100mg Take 1 [facility] 100 mg 8-06 tablet by ity of tablet 00:00: mouth 00 daily. Medical [facility] amLODIPine 2020-0 Yes [id number] 10mg Take 1 [facility] 10 mg 8-06 tablet by ity of tablet 00:00: mouth [place] 00 daily. [facility] Branch hydrALAZINE 2020-0 Yes [id number] 10mg Take 1 [facility] 10 mg 8-06 tablet by ity of tablet 00:00: mouth 2 (two) Medical times Branch daily. albuterol 2020-0 Yes [id number] 2{puff} Inhale 2 [facility] (PROAIR 8-06 Puffs ity of HFA) 90 00:00: every 4 [place] mcg/actuati 00 (four) Medica l on inhaler hours as Branc h needed for Wheezing or Shortness of Breath. Use 1 puff by mouth every 4 to 6 hours as needed for wheezing fluticasone 2020-0 Yes [id number] 1{puff} Inhale 1 [facility] propion-tigist 8-06 Puff every it y of meterol 00:00: 12 [place] (ADVAIR 00 (twelve) Medical DISKUS) hours. Branch 250-50 mcg/dose inhalation disk metoprolol 2020-0 Yes [id number] 50mg Take 1 [facility] nivers tartrate 50 8-06 tablet by ity of mg tablet 00:00: mouth 2 [place] (two) Medical times Branch daily. citalopram 2020-0 Yes [id number] 20mg Take 1 [facility] 20 mg 8-06 tablet by ity of tablet 00:00: mouth [place] 00 daily. Medical Branch losartan 2020-0 Yes [id number] 100mg Take 1 [facility] 100 mg 8-06 tablet by ity of tablet 00:00: mouth [place] 00 daily. Medical [facility] amLODIPine 2020-0 Yes [id number] 10mg Take 1 [facility] 10 mg 8-06 tablet by ity of tablet 00:00: mouth [place] 00 daily. [facility] hydrALAZINE 2020-0 Yes [id number] 10mg Take 1 [facility] 10 mg 8-06 tablet by ity of tablet 00:00: mouth 2 (two) Medical times Branch daily. albuterol 2020-0 Yes [id number] 2{puff} Inhale 2 [facility] (PROAIR 8-06 Puffs ity of HFA) 90 00:00: every 4 [place] mcg/actuati 00 (four) Medica l on inhaler hours as Branc h needed for Wheezing or Shortness of Breath. Use 1 puff by mouth every 4 to 6 hours as needed for wheezing fluticasone 2020-0 Yes [id number] 1{puff} Inhale 1 [facility] propion-tigist 8-06 Puff every it y of meterol 00:00: 12 [place] (ADVAIR 00 (twelve) Medical DISKUS) hours. Branch 250-50 mcg/dose inhalation disk metoprolol 2020-0 Yes [id number] 50mg Take 1 [facility] nivers tartrate 50 8-06 tablet by ity of mg tablet 00:00: mouth 2 [place] (two) Medical times Branch daily. citalopram 2020-0 Yes [id number] 20mg Take 1 [facility] 20 mg 8-06 tablet by ity of tablet 00:00: mouth [place] 00 daily. Medical Branch losartan 2020-0 Yes [id number] 100mg Take 1 [facility] 100 mg 8-06 tablet by ity of tablet 00:00: mouth [place] 00 daily. Medical [facility] amLODIPine 2020-0 Yes [id number] 10mg Take 1 [facility] 10 mg 8-06 tablet by ity of tablet 00:00: mouth [place] 00 daily. [facility] hydrALAZINE 2020-0 Yes [id number] 10mg Take 1 [facility] 10 mg 8-06 tablet by ity of tablet 00:00: mouth 2 [place] (two) Medical times Branch daily. albuterol 2020-0 Yes [id number] 2{puff} Inhale 2 [facility] (PROAIR 8-06 Puffs ity of HFA) 90 00:00: every 4 [place] mcg/actuati 00 (four) Medica l on inhaler hours as Branc h needed for Wheezing or Shortness of Breath. Use 1 puff by mouth every 4 to 6 hours as needed for wheezing fluticasone 2020-0 Yes [id number] 1{puff} Inhale 1 [facility] propion-tigist 8-06 Puff every it y of meterol 00:00: 12 [place] (ADVAIR 00 (twelve) Medical DISKUS) hours. Branch 250-50 mcg/dose inhalation disk metoprolol 2020-0 Yes [id number] 50mg Take 1 [facility] nivers tartrate 50 8-06 tablet by ity of mg tablet 00:00: mouth 2 [place] [address] (two) Medical times Branch daily. citalopram 2020-0 Yes [id number] 20mg Take 1 [facility] 20 mg 8-06 tablet by ity of tablet 00:00: mouth [place] 00 daily. Medical Branch hydrALAZINE 2019-0 2020- No [id number] 10mg Take 1 [facility] 10 mg 8-06 07-08 tablet by ity of tablet 00:00: 00:00 mouth 2 [place] 00 :00 (two) Medical times Branch daily. albuterol 2019-0 2020- No [id number] 2{puff} Inhale 2 [facility] (PROAIR 8-06 07-08 Puffs ity of HFA) 90 00:00: 00:00 every 4 [place] mcg/actuati 00 :00 (four) Medica l on inhaler hours as Branc h needed for Wheezing or Shortness of Breath. Use 1 puff by mouth every 4 to 6 hours as needed for wheezing fluticasone 2020-0 2020- No [id number] 1{puff} Inhale 1 [facility] propion-tigist 8-06 07-08 Puff every i ty of meterol 00:00: 00:00 12 [place] (ADVAIR 00 :00 (twelve) Medical DISKUS) hours. Branch 250-50 mcg/dose inhalation disk hydrALAZINE 2020- No [id number] 10mg Take 1 [facility] 10 mg 06-26-08 tablet by ity of tablet 00:00: 00:00 mouth 2 [place] 00 :00 (two) Medical times Branch daily. albuterol 2020- No [id number] 2{puff} Inhale 2 [facility] (PROAIR 06-26-08 Puffs ity of HFA) 90 00:00: 00:00 every 4 [place] mcg/actuati 00 :00 (four) Medica l on inhaler hours as Branc h needed for Wheezing or Shortness of Breath. Use 1 puff by mouth every 4 to 6 hours as needed for wheezing fluticasone 2020- No [id number] 1{puff} Inhale 1 [facility] propion-tigist 06-26-08 Puff every i ty of meterol 00:00: 00:00 12 [place] (ADVAIR 00 :00 (twelve) Medical DISKUS) hours. Branch 250-50 mcg/dose inhalation disk metoprolol 2020- No [id number] 50mg Take 1 [facility] tartrate 50 06-26-30 tablet by it y of mg tablet 00:00: 00:00 [place] 2 [place] :[place] (two) Medical times Branch daily. losartan 2020- No [id number] 100mg Take 1 [facility] 100 mg 06-26-30 tablet by ity of tablet 00:00: 00:00 mouth [place] 00 :00 daily. Medical Branch amLODIPine 2020- No [id number] 10mg Take 1 [facility] 10 mg 06-26-30 tablet by ity of tablet 00:00: 00:00 mouth [place] 00 :00 daily. Medical Branch citalopram 2020- No [id number] 20mg Take 1 [facility] 20 mg 06-26 03-15 tablet by ity of tablet 00:00: 00:00 mouth [place] 00 :00 daily. Medical Branch amLODIPine No [id number] 10mg Take 1 [facility] 10 mg 06-26-06 tablet by ity of tablet 00:00: 00:00 mouth [place] 00 :00 daily. Medical Branch amLODIPine 2019- No [id number] 10mg Take 1 [facility] 10 mg 8-06 08-06 tablet by ity of tablet 00:00: 00:00 mouth [place] 00 :00 daily. Medical Branch amLODIPine 2020-0 2020- No [id number] 10mg Take 1 [facility] 10 mg 8-06 08-06 tablet by ity of tablet 00:00: 00:00 mouth [place] 00 :00 daily. Medical Branch amLODIPine 2020-0 2020- No [id number] 10mg Take 1 [facility] 10 mg 8-06 08-06 tablet by ity of tablet 00:00: 00:00 mouth [place] 00 :00 daily. Medical Branch amLODIPine 2020-0 2020- No [id number] 10mg Take 1 [facility] 10 mg 8- 08-06 tablet by ity of tablet 00:00: 00:00 mouth [place] 00 :00 daily. Medical Branch amLODIPine 2020-0 2020- No [id number] 10mg Take 1 [facility] 10 mg 8- 08-06 tablet by ity of tablet 00:00: 00:00 mouth [place] 00 :00 daily. Medical Branch sulfur 2020-0 2020- No 5mL [facility] hexafluorid 03-17 ity of e microsphr 17:00: 15:38 [place] (LUMASON) 00 :00 Medical injection 5 Branch mL sulfur 2020-0 2020- No 5mL 5 mL, [facility] hexafluorid 03-17 Intravenou i ty of e microsphr 17:00: 15:38 s, ONCE, 1 [place] (LUMASON) 00 :00 dose, Mon Medic al injection 5 03/17/20 at Br anch mL 1200, Routine amLODIPine 2019-0 2020- No 10mg Take 10 mg [facility] 10 mg 02-18-30 by mouth ity of tablet 01:12: 00:00 daily. [place] 26 :00 Medical Branch metoprolol 2020-0 2020- No 50mg Take 50 mg [facility] tartrate 50 02-18-30 by mouth 2 i ty of mg tablet 01:12: 00:00 (two) [place] 26 :00 times Medical daily. Branch hydrALAZINE 2020-0 2020- No 10mg Take 10 mg [facility] 10 mg 02-18-30 by mouth 2 ity of tablet 01:12: 00:00 (two) [place] 26 :00 times Medical daily. Branch losartan 2020-0 2020- No 100mg Take 100 [facility] vers 100 mg 02-18 03-30 mg by ity of tablet 01:12: 00:00 mouth [place] 26 :00 daily. Medical Branch amLODIPine 2020-0 2020- No 10mg Take 10 mg [facility] 10 mg 02-18-30 by mouth ity of tablet 01:12: 00:00 daily. [place] 26 :00 Medical Branch metoprolol 2019-0 2020- No 50mg Take 50 mg [facility] tartrate 50 02-18-30 by mouth 2 i ty of mg tablet 01:12: 00:00 (two) [place] 26 :00 times Medical daily. Branch hydrALAZINE 2020-0 2020- No 10mg Take 10 mg [facility] 10 mg 02-18-30 by mouth 2 ity of tablet 01:12: 00:00 (two) [place] 26 :00 times Medical daily. Branch losartan 2020-0 2020- No 100mg Take 100 [facility] vers 100 mg 02-18 03-30 mg by ity of tablet 01:12: 00:00 mouth [place] 26 :00 daily. Medical Branch amLODIPine 2020-0 Yes [id number] 10mg Take 1 [facility] n[facility] 10 mg 3-30 tablet by ity of tablet 00:00: mouth 00 daily. Medical Branch hydrALAZINE 2020-0 Yes [id number] 10mg Take 1 [facility] 10 mg 3-30 tablet by ity of tablet 00:00: mouth (two) Medical times Branch daily. losartan 2020-0 Yes [id number] 100mg Take 1 [facility] [place] 100 mg 3-30 tablet by ity of tablet 00:00: mouth 00 daily. Medical Branch metoprolol 2020-0 Yes [id number] 50mg Take 1 [facility] n[facility] tartrate 50 3-30 tablet by ity of mg tablet 00:00: mouth 2 00 (two) Medical times Branch daily. amLODIPine 2020-0 Yes [id number] 10mg Take 1 [facility] n[facility] 10 mg 3-30 tablet by ity of tablet 00:00: mouth 00 daily. Medical Branch hydrALAZINE 2020-0 Yes [id number] 10mg Take 1 [facility] 10 mg 3-30 tablet by ity of tablet 00:00: mouth 2 00 (two) Medical times Branch daily. losartan 2020-0 Yes [id number] 100mg Take 1 [facility] 100 mg 3-30 tablet by ity of tablet 00:00: mouth [place] 00 daily. Medical Branch metoprolol 2020-0 Yes [id number] 50mg Take 1 [facility] n[facility] tartrate 50 3-30 tablet by ity of mg tablet 00:00: mouth (two) Medical times Branch daily. amLODIPine 2020-0 Yes [id number] 10mg Take 1 [facility] 10 mg 3-30 tablet by ity of tablet 00:00: mouth 00 daily. Medical Branch hydrALAZINE 2020-0 Yes [id number] 10mg Take 1 [facility] 10 mg 3-30 tablet by ity of tablet 00:00: mouth (two) Medical times Branch daily. losartan 2020-0 Yes [id number] 100mg Take 1 [facility] [place] 100 mg 3-30 tablet by ity of tablet 00:00: mouth 00 daily. Medical Branch metoprolol 2020-0 Yes [id number] 50mg Take 1 [facility] n[facility] tartrate 50 3-30 tablet by ity of mg tablet 00:00: mouth (two) Medical times Branch daily. amLODIPine 2020-0 Yes [id number] 10mg Take 1 [facility] 10 mg 3-30 tablet by ity of tablet 00:00: mouth 00 daily. Medical Branch hydrALAZINE 2020-0 Yes [id number] 10mg Take 1 [facility] 10 mg 3-30 tablet by ity of tablet 00:00: mouth (two) Medical times Branch daily. losartan 2020-0 Yes [id number] 100mg Take 1 [facility] [place] 100 mg 3-30 tablet by ity of tablet 00:00: mouth 00 daily. Medical Branch metoprolol 2020-0 Yes [id number] 50mg Take 1 [facility] n[facility] tartrate 50 3-30 tablet by ity of mg tablet 00:00: mouth (two) Medical times Branch daily. amLODIPine 2020-0 Yes [id number] 10mg Take 1 [facility] 10 mg 3-30 tablet by ity of tablet 00:00: mouth 00 daily. Medical Branch hydrALAZINE 2020-0 Yes [id number] 10mg Take 1 [facility] 10 mg 3-30 tablet by ity of tablet 00:00: mouth (two) Medical times Branch daily. losartan 2020-0 Yes [id number] 100mg Take 1 [facility] [place] 100 mg 3-30 tablet by ity of tablet 00:00: mouth 00 daily. Medical Branch metoprolol 2020-0 Yes [id number] 50mg Take 1 [facility] n[facility] tartrate 50 3-30 tablet by ity of mg tablet 00:00: mouth 2 [place] 00 (two) Medical times Branch daily. amLODIPine 2020-0 2020- No [id number] 10mg Take 1 [facility] 10 mg 3-30 08-06 tablet by ity of tablet 00:00: 00:00 mouth [place] 00 :00 daily. Medical Branch hydrALAZINE 2019-0 2020- No [id number] 10mg Take 1 [facility] 10 mg 3-30 08-06 tablet by ity of tablet 00:00: 00:00 mouth 2 [place] 00 :00 (two) Medical times Branch daily. losartan 2020-0 2020- No [id number] 100mg Take 1 [facility] 100 mg 3-30 08-06 tablet by ity of tablet 00:00: 00:00 mouth [place] 00 :00 daily. Medical Branch metoprolol 2019-0 2020- No [id number] 50mg Take 1 [facility] tartrate 50 3-30 08-06 tablet by it y of mg tablet 00:00: 00:00 mouth 2 [place] 00 :[place] (two) Medical times Branch daily. amLODIPine 2019-0 2020- No [id number] 10mg Take 1 [facility] 10 mg 3-30 08-06 tablet by ity of tablet 00:00: 00:00 mouth [place] 00 :00 daily. Medical Branch hydrALAZINE 2019-0 2020- No [id number] 10mg Take 1 [facility] 10 mg 3-30 08-06 tablet by ity of tablet 00:00: 00:00 mouth 2 [place] 00 :00 (two) Medical times Branch daily. losartan 2020-0 2020- No [id number] 100mg Take 1 [facility] n[facility] 100 mg 3-30 08-06 tablet by ity of tablet 00:00: 00:00 mouth [place] 00 :00 daily. Medical Branch metoprolol 2020-0 2020- No [id number] 50mg Take 1 [facility] tartrate 50 3-30 08-06 tablet by it y of mg tablet 00:00: 00:00 mouth 2 [place] 00 :00 (two) Medical times Branch daily. amLODIPine 2020-0 2020- No [id number] 10mg Take 1 [facility] 10 mg 3-30 08-06 tablet by ity of tablet 00:00: 00:00 mouth [place] 00 :00 daily. Medical Branch hydrALAZINE 2019-0 2020- No [id number] 10mg Take 1 [facility] 10 mg 3-30 08-06 tablet by ity of tablet 00:00: 00:00 mouth 2 [place] 00 :00 (two) Medical times Branch daily. losartan 2019-2019- No [id number] 100mg Take 1 [facility] 100 mg 3-30 08-06 tablet by ity of tablet 00:00: 00:00 mouth [place] 00 :00 daily. Medical Branch metoprolol 2019-2019- No [id number] 50mg Take 1 [facility] tartrate 50 3-30 - tablet by it y of mg tablet 00:00: 00:00 mouth 2 [place] 00 :00 (two) Medical times Branch daily. citalopram 2019- 2020- No 10mg Take 10 mg [facility] 10 mg 2-17 01- by mouth ity of tablet 21:10: 00:00 daily. [place] 02 :00 Medical Branch citalopram 2019-0 2020- No 10mg Take 10 mg [facility] 10 mg 2-27 - by mouth ity of tablet 21:10: 00:00 daily. [place] 02 :00 Medical Branch citalopram 2019-0 Yes [id number] 20mg Take 1 [facility] n[facility] 20 mg 2-27 tablet by ity of tablet 00:00: mouth [place] 00 daily. Medical Branch citalopram 2019-0 Yes [id number] 20mg Take 1 [facility] 20 mg 2-27 tablet by ity of tablet 00:00: mouth [place] 00 daily. Medical Branch citalopram 2019-0 Yes [id number] 20mg Take 1 [facility] 20 mg 2-27 tablet by ity of tablet 00:00: mouth [place] 00 daily. Medical Branch citalopram 2019-0 Yes [id number] 20mg Take 1 [facility] 20 mg 2-27 tablet by ity of tablet 00:00: mouth [place] 00 daily. Medical Branch citalopram 2020-0 Yes [id number] 20mg Take 1 [facility] 20 mg 2-27 tablet by ity of tablet 00:00: mouth [place] 00 daily. Medical Branch citalopram 2019-0 Yes [id number] 20mg Take 1 [facility] n[facility] 20 mg 2-27 tablet by ity of tablet 00:00: mouth [place] 00 daily. Medical Branch citalopram 2019-0 Yes [id number] 20mg Take 1 [facility] 20 mg 2-27 tablet by ity of tablet 00:00: mouth [place] 00 daily. Medical Branch citalopram 2020-0 Yes [id number] 20mg Take 1 [facility] n[facility] 20 mg 2-27 tablet by ity of tablet 00:00: mouth [place] 00 daily. Medical Branch citalopram 2019-0 2020- No [id number] 20mg Take 1 [facility] 20 mg 2-27 08-06 tablet by ity of tablet 00:00: 00:00 mouth [place] 00 :00 daily. Medical Branch citalopram 2020-0 2020- No [id number] 20mg Take 1 [facility] 20 mg 2-27 08-06 tablet by ity of tablet 00:00: 00:00 mouth [place] 00 :00 daily. Medical Branch citalopram 2020-0 2020- No [id number] 20mg Take 1 [facility] 20 mg 2-27 08-06 tablet by ity of tablet 00:00: 00:00 mouth [place] 00 :00 daily. Medical Branch diphenhydra 2020-0 Yes Take by Un [facility] mine HCl 2-20 mouth ity of (ALLERGY 17:19: daily. [place] RELIEF Medical ORAL) Branch aspirin 81 2020-0 Yes 81mg Take 81 mg U nivers mg chewable 2-20 by mouth ity of tablet 17:19: daily. Medical Branch vitamin B 2020-0 Yes Take by [facility] ers complex (B 2-20 mouth ity of COMPLEX-VIT 17:19: daily. [place] LEON B12 Medical ORAL) Branch diphenhydra 2020-0 Yes Take by Un [place] mine HCl 2-20 mouth ity of (ALLERGY 17:19: daily. [place] RELIEF Medical ORAL) Branch aspirin 81 2020-0 Yes 81mg Take 81 mg [facility] n[facility] mg chewable 2-20 by mouth ity of tablet 17:19: daily. Medical Branch vitamin B 2020-0 Yes Take by [facility] ers complex (B 2-20 mouth ity of COMPLEX-VIT 17:19: daily. [place] LEON B12 Medical ORAL) Branch diphenhydra 2020-0 Yes Take by Un [place] mine HCl 2-20 mouth ity of (ALLERGY 17:19: daily. [place] RELIEF Medical ORAL) Branch aspirin 81 2020-0 Yes 81mg Take 81 mg U nivers mg chewable 2-20 by mouth ity of tablet 17:19: daily. [place] 00 Medical Branch vitamin B 2020-0 Yes Take by [facility] ers complex (B 2-20 mouth ity of COMPLEX-VIT 17:19: daily. [place] LEON B12 00 Medical ORAL) Branch diphenhydra 2020-0 Yes Take by Un [place] mine HCl 2-20 mouth ity of (ALLERGY 17:19: daily. [place] RELIEF 00 Medical ORAL) Branch diphenhydra 2020-0 Yes Take by Un [place] mine HCl 2-20 mouth ity of (ALLERGY 17:19: daily. [place] RELIEF 00 Medical ORAL) Branch diphenhydra 2020-0 Yes Take by Un [place] mine HCl 2-20 mouth ity of (ALLERGY 17:19: daily. [place] RELIEF 00 Medical ORAL) Branch diphenhydra 2020-0 Yes Take by Un [place] mine HCl 2-20 mouth ity of (ALLERGY 17:19: daily. [place] RELIEF 00 Medical ORAL) Branch diphenhydra 2020-0 Yes Take by Un [place] mine HCl 2-20 mouth ity of (ALLERGY 17:19: daily. [place] RELIEF 00 Medical ORAL) Branch diphenhydra 2020-0 Yes Take by Un [place] mine HCl 2-20 mouth ity of (ALLERGY 17:19: daily. [place] RELIEF 00 Medical ORAL) Branch diphenhydra 2020-0 Yes Take by Un [place] mine HCl 2-20 mouth ity of (ALLERGY 17:19: daily. [place] RELIEF 00 Medical ORAL) Branch diphenhydra 2020-0 Yes Take by Un [place] mine HCl 2-20 mouth ity of (ALLERGY 17:19: daily. [place] RELIEF 00 Medical ORAL) Branch diphenhydra 2020-0 Yes Take by Un [place] mine HCl 2-20 mouth ity of (ALLERGY 17:19: daily. [place] RELIEF 00 Medical ORAL) Branch diphenhydra 2020-0 Yes Take by Un [place] mine HCl 2-20 mouth ity of (ALLERGY 17:19: daily. [place] RELIEF 00 Medical ORAL) Branch diphenhydra 2020-0 Yes Take by Un [place] mine HCl 2-20 mouth ity of (ALLERGY 17:19: daily. [place] RELIEF 00 Medical ORAL) Branch diphenhydra 2020-0 Yes Take by Un [place] mine HCl 2-20 mouth ity of (ALLERGY 17:19: daily. [place] RELIEF 00 Medical ORAL) Branch diphenhydra 2020-0 Yes Take by Un [place] mine HCl 2-20 mouth ity of (ALLERGY 17:19: daily. [place] RELIEF Medical ORAL) Branch diphenhydra 2020-0 Yes Take by Un [place] mine HCl 2-20 mouth ity of (ALLERGY 17:19: daily. [place] RELIEF Medical ORAL) Branch diphenhydra 2020-0 Yes Take by Un [place] mine HCl 2-20 mouth ity of (ALLERGY 17:19: daily. [place] RELIEF Medical ORAL) Branch diphenhydra 2020-0 Yes Take by Un [place] mine HCl 2-20 mouth ity of (ALLERGY 17:19: daily. [place] RELIEF Medical ORAL) Branch diphenhydra 2020-0 Yes Take by Un [place] mine HCl 2-20 mouth ity of (ALLERGY 17:19: daily. [place] RELIEF Medical ORAL) Branch diphenhydra 2020-0 Yes Take by Un [place] mine HCl 2-20 mouth ity of (ALLERGY 17:19: daily. [place] RELIEF Medical ORAL) Branch citalopram 2020-0 Yes 10mg Take 10 mg U nivers 10 mg 2-20 by mouth ity of tablet 17:19: daily. Medical Branch amLODIPine 2020-0 Yes 10mg Take 10 mg [facility] nivers 10 mg 2-20 by mouth ity of tablet 17:19: daily. Medical Branch metoprolol 2020-0 Yes 50mg Take 50 mg U nivers tartrate 50 2-20 by mouth 2 it y of mg tablet 17:19: (two) [place] 00 times Medical daily. Branch hydrALAZINE 2020-0 Yes 10mg Take 10 mg [facility] 10 mg 2-20 by mouth 2 ity of tablet 17:19: (two) [place] 00 times Medical daily. Branch losartan 2020-0 Yes 100mg Take 100 [facility] ers 100 mg 2-20 mg by ity of tablet 17:19: mouth [place] 00 daily. Medical Branch fluticasone 2020-0 Yes 1{puff} Inhale 1 [facility] propion-tigist 2-20 Puff 2 ity of meterol 17:19: (two) [place] (ADVAIR 00 times Medical DISKUS) daily. Branch 250-50 mcg/dose inhalation disk diphenhydra 2020-0 Yes Take by Un [facility] mine HCl 2-20 mouth ity of (ALLERGY 17:19: daily. [place] RELIEF Medical ORAL) Branch aspirin 81 2020-0 Yes 81mg Take 81 mg [facility] nivers mg chewable 2-20 by mouth ity of tablet 17:19: daily. Medical Branch vitamin B 2020-0 Yes Take by [facility] ers complex (B 2-20 mouth ity of COMPLEX-VIT 17:19: daily. [place] LEON B12 Medical ORAL) Branch albuterol 2020-0 Yes Use 1 puff [facility] [place] (PROAIR 2-20 by mouth ity of HFA) 90 17:19: every 4 to [place] mcg/actuati 00 6 hours as Me dical on inhaler needed for Bra nch wheezing citalopram 2020-0 Yes 10mg Take 10 mg U nivers 10 mg 2-20 by mouth ity of tablet 17:19: daily. Medical Branch amLODIPine 2020-0 Yes 10mg Take 10 mg U nivers 10 mg 2-20 by mouth ity of tablet 17:19: daily. Medical Branch metoprolol 2020-0 Yes 50mg Take 50 mg U nivers tartrate 50 2-20 by mouth 2 it y of mg tablet 17:19: (two) [place] 00 times Medical daily. Branch hydrALAZINE 2020-0 Yes 10mg Take 10 mg [facility] 10 mg 2-20 by mouth 2 ity of tablet 17:19: (two) [place] 00 times Medical daily. Branch losartan 2020-0 Yes 100mg Take 100 [facility] ers 100 mg 2-20 mg by ity of tablet 17:19: mouth [place] 00 daily. Medical Branch fluticasone 2020-0 Yes 1{puff} Inhale 1 [facility] propion-tigist 2-20 Puff 2 ity of meterol 17:19: (two) [place] (ADVAIR 00 times Medical DISKUS) daily. Branch 250-50 mcg/dose inhalation disk diphenhydra 2020-0 Yes Take by Un [place] mine HCl 2-20 mouth ity of (ALLERGY 17:19: daily. [place] RELIEF Medical ORAL) Branch aspirin 81 2020-0 Yes 81mg Take 81 mg U nivers mg chewable 2-20 by mouth ity of tablet 17:19: daily. Medical Branch vitamin B 2020-0 Yes Take by [facility] ers complex (B 2-20 mouth ity of COMPLEX-VIT 17:19: daily. [place] LEON B12 Medical ORAL) Branch albuterol 2020-0 Yes Use 1 puff [facility] [place] (PROAIR 2-20 by mouth ity of HFA) 90 17:19: every 4 to [place] mcg/actuati 00 6 hours as Me dical on inhaler needed for Bra n[facility] wheezing citalopram 2020-0 Yes 10mg Take 10 mg [facility] n[facility] 10 mg 2-20 by mouth ity of tablet 17:19: daily. Medical Branch amLODIPine 2020-0 Yes 10mg Take 10 mg [facility] nivers 10 mg 2-20 by mouth ity of tablet 17:19: daily. Medical Branch metoprolol 2020-0 Yes 50mg Take 50 mg U nivers tartrate 50 2-20 by mouth 2 it y of mg tablet 17:19: (two) [place] 00 times Medical daily. Branch hydrALAZINE 2020-0 Yes 10mg Take 10 mg [facility] 10 mg 2-20 by mouth 2 ity of tablet 17:19: (two) [place] 00 times Medical daily. Branch losartan 2020-0 Yes 100mg Take 100 [facility] ers 100 mg 2-20 mg by ity of tablet 17:19: mouth [place] 00 daily. Medical Branch fluticasone 2020-0 Yes 1{puff} Inhale 1 [facility] propion-tigist 2-20 Puff 2 ity of meterol 17:19: (two) [place] (ADVAIR 00 times Medical DISKUS) daily. Branch 250-50 mcg/dose inhalation disk diphenhydra 2020-0 Yes Take by Un [place] mine HCl 2-20 mouth ity of (ALLERGY 17:19: daily. [place] RELIEF Medical ORAL) Branch aspirin 81 2020-0 Yes 81mg Take 81 mg [facility] n[facility] mg chewable 2-20 by mouth ity of tablet 17:19: daily. Medical Branch vitamin B 2020-0 Yes Take by [facility] ers complex (B 2-20 mouth ity of COMPLEX-VIT 17:19: daily. [place] LEON B12 Medical ORAL) Branch albuterol 2020-0 Yes Use 1 puff [facility] [place] (PROAIR 2-20 by mouth ity of HFA) 90 17:19: every 4 to [place] mcg/actuati 00 6 hours as Me dical on inhaler needed for Bra nch wheezing citalopram 2020-0 Yes 10mg Take 10 mg U n[facility] 10 mg 2-20 by mouth ity of tablet 17:19: daily. Medical Branch amLODIPine 2020-0 Yes 10mg Take 10 mg [facility] nivers 10 mg 2-20 by mouth ity of tablet 17:19: daily. Medical Branch metoprolol 2020-0 Yes 50mg Take 50 mg U nivers tartrate 50 2-20 by mouth 2 it y of mg tablet 17:19: (two) [place] 00 times Medical daily. Branch hydrALAZINE 2020-0 Yes 10mg Take 10 mg [facility] 10 mg 2-20 by mouth 2 ity of tablet 17:19: (two) [place] 00 times Medical daily. Branch losartan 2020-0 Yes 100mg Take 100 [facility] ers 100 mg 2-20 mg by ity of tablet 17:19: mouth [place] 00 daily. Medical Branch fluticasone 2020-0 Yes 1{puff} Inhale 1 [facility] propion-tigist 2-20 Puff 2 ity of meterol 17:19: (two) [place] (ADVAIR 00 times Medical DISKUS) daily. Branch 250-50 mcg/dose inhalation disk diphenhydra 2020-0 Yes Take by Un [place] mine HCl 2-20 mouth ity of (ALLERGY 17:19: daily. [place] RELIEF Medical ORAL) Branch aspirin 81 2020-0 Yes 81mg Take 81 mg [facility] nivers mg chewable 2-20 by mouth ity of tablet 17:19: daily. Medical Branch vitamin B 2020-0 Yes Take by [facility] ers complex (B 2-20 mouth ity of COMPLEX-VIT 17:19: daily. [place] LEON B12 Medical ORAL) Branch albuterol 2020-0 Yes Use 1 puff Un [place] (PROAIR 2-20 by mouth ity of HFA) 90 17:19: every 4 to [place] mcg/actuati 00 6 hours as Me dical on inhaler needed for [facility] wheezing citalopram 2020-0 Yes 10mg Take 10 mg U nivers 10 mg 2-20 by mouth ity of tablet 17:19: daily. Medical Branch amLODIPine 2020-0 Yes 10mg Take 10 mg U nivers 10 mg 2-20 by mouth ity of tablet 17:19: daily. Medical Branch metoprolol 2020-0 Yes 50mg Take 50 mg U nivers tartrate 50 2-20 by mouth 2 it y of mg tablet 17:19: (two) [place] 00 times Medical daily. Branch hydrALAZINE 2020-0 Yes 10mg Take 10 mg [facility] 10 mg 2-20 by mouth 2 ity of tablet 17:19: (two) [place] 00 times Medical daily. Branch losartan 2020-0 Yes 100mg Take 100 [facility] ers 100 mg 2-20 mg by ity of tablet 17:19: mouth [place] 00 daily. Medical Branch fluticasone 2020-0 Yes 1{puff} Inhale 1 [facility] propion-tigist 2-20 Puff 2 ity of meterol 17:19: (two) [place] (ADVAIR 00 times Medical DISKUS) daily. Branch 250-50 mcg/dose inhalation disk diphenhydra 2020-0 Yes Take by Un [place] mine HCl 2-20 mouth ity of (ALLERGY 17:19: daily. [place] RELIEF Medical ORAL) Branch aspirin 81 2020-0 Yes 81mg Take 81 mg U nivers mg chewable 2-20 by mouth ity of tablet 17:19: daily. Medical Branch vitamin B 2020-0 Yes Take by [facility] ers complex (B 2-20 mouth ity of COMPLEX-VIT 17:19: daily. [place] LEON B12 Medical ORAL) Branch albuterol 2020-0 Yes Use 1 puff [facility] [place] (PROAIR 2-20 by mouth ity of HFA) 90 17:19: every 4 to [place] mcg/actuati 00 6 hours as Me dical on inhaler needed for Bra n[facility] wheezing amLODIPine 2020-0 Yes 10mg Take 10 mg [facility] nivers 10 mg 2-20 by mouth ity of tablet 17:19: daily. [place] 00 Medical Branch metoprolol 2020-0 Yes 50mg Take 50 mg U nivers tartrate 50 2-20 by mouth 2 it y of mg tablet 17:19: (two) [place] 00 times Medical daily. Branch hydrALAZINE 2020-0 Yes 10mg Take 10 mg [facility] 10 mg 2-20 by mouth 2 ity of tablet 17:19: (two) [place] 00 times Medical daily. Branch losartan 2020-0 Yes 100mg Take 100 [facility] ers 100 mg 2-20 mg by ity of tablet 17:19: mouth [place] 00 daily. Medical Branch fluticasone 2020-0 Yes 1{puff} Inhale 1 [facility] propion-tigist 2-20 Puff 2 ity of meterol 17:19: (two) [place] (ADVAIR 00 times Medical DISKUS) daily. Branch 250-50 mcg/dose inhalation disk diphenhydra 2020-0 Yes Take by Un [place] mine HCl 2-20 mouth ity of (ALLERGY 17:19: daily. [place] RELIEF Medical ORAL) Branch aspirin 81 2020-0 Yes 81mg Take 81 mg U nivers mg chewable 2-20 by mouth ity of tablet 17:19: daily. Medical Branch vitamin B 2020-0 Yes Take by [facility] ers complex (B 2-20 mouth ity of COMPLEX-VIT 17:19: daily. [place] LEON B12 Medical ORAL) Branch albuterol 2020-0 Yes Use 1 puff [facility] [place] (PROAIR 2-20 by mouth ity of HFA) 90 17:19: every 4 to [place] mcg/actuati 00 6 hours as Me dical on inhaler needed for Bra n[facility] wheezing amLODIPine 2020-0 Yes 10mg Take 10 mg [facility] nivers 10 mg 2-20 by mouth ity of tablet 17:19: daily. Medical Branch metoprolol 2020-0 Yes 50mg Take 50 mg U nivers tartrate 50 2-20 by mouth 2 it y of mg tablet 17:19: (two) [place] 00 times Medical daily. Branch hydrALAZINE 2020-0 Yes 10mg Take 10 mg [facility] 10 mg 2-20 by mouth 2 ity of tablet 17:19: (two) [place] 00 times Medical daily. Branch losartan 2020-0 Yes 100mg Take 100 [facility] ers 100 mg 2-20 mg by ity of tablet 17:19: mouth [place] 00 daily. Medical Branch fluticasone 2020-0 Yes 1{puff} Inhale 1 [facility] propion-tigist 2-20 Puff 2 ity of meterol 17:19: (two) [place] (ADVAIR 00 times Medical DISKUS) daily. Branch 250-50 mcg/dose inhalation disk diphenhydra 2020-0 Yes Take by Un [place] mine HCl 2-20 mouth ity of (ALLERGY 17:19: daily. [place] RELIEF Medical ORAL) Branch aspirin 81 2020-0 Yes 81mg Take 81 mg U nivers mg chewable 2-20 by mouth ity of tablet 17:19: daily. Medical Branch vitamin B 2020-0 Yes Take by [facility] ers complex (B 2-20 mouth ity of COMPLEX-VIT 17:19: daily. [place] LEON B12 Medical ORAL) Branch albuterol 2020-0 Yes Use 1 puff [facility] [place] (PROAIR 2-20 by mouth ity of HFA) 90 17:19: every 4 to [place] mcg/actuati 00 6 hours as Me dical on inhaler needed for Bra nch wheezing amLODIPine 2020-0 Yes 10mg Take 10 mg [facility] n[facility] 10 mg 2-20 by mouth ity of tablet 17:19: daily. Medical Branch metoprolol 2020-0 Yes 50mg Take 50 mg U nivers tartrate 50 2-20 by mouth 2 it y of mg tablet 17:19: (two) [place] 00 times Medical daily. Branch hydrALAZINE 2020-0 Yes 10mg Take 10 mg [facility] 10 mg 2-20 by mouth 2 ity of tablet 17:19: (two) [place] 00 times Medical daily. Branch losartan 2020-0 Yes 100mg Take 100 [facility] ers 100 mg 2-20 mg by ity of tablet 17:19: mouth [place] 00 daily. Medical Branch fluticasone 2020-0 Yes 1{puff} Inhale 1 [facility] propion-tigist 2-20 Puff 2 ity of meterol 17:19: (two) [place] (ADVAIR 00 times Medical DISKUS) daily. Branch 250-50 mcg/dose inhalation disk diphenhydra 2020-0 Yes Take by Un [place] mine HCl 2-20 mouth ity of (ALLERGY 17:19: daily. [place] RELIEF Medical ORAL) Branch aspirin 81 2020-0 Yes 81mg Take 81 mg [facility] nivers mg chewable 2-20 by mouth ity of tablet 17:19: daily. Medical Branch vitamin B 2020-0 Yes Take by [facility] ers complex (B 2-20 mouth ity of COMPLEX-VIT 17:19: daily. [place] LEON B12 Medical ORAL) Branch albuterol 2020-0 Yes Use 1 puff [facility] [place] (PROAIR 2-20 by mouth ity of HFA) 90 17:19: every 4 to [place] mcg/actuati 00 6 hours as Me dical on inhaler needed for Bra nch wheezing amLODIPine 2020-0 Yes 10mg Take 10 mg [facility] nivers 10 mg 2-20 by mouth ity of tablet 17:19: daily. [facility] metoprolol 2020-0 Yes 50mg Take 50 mg [facility] tartrate 50 2-20 by mouth 2 it y of mg tablet 17:19: (two) [place] 00 times Medical daily. Branch hydrALAZINE 2020-0 Yes 10mg Take 10 mg [facility] 10 mg 2-20 by mouth 2 ity of tablet 17:19: (two) [place] 00 times Medical daily. Branch losartan 2020-0 Yes 100mg Take 100 [facility] ers 100 mg 2-20 mg by ity of tablet 17:19: mouth [place] 00 daily. Medical [facility] fluticasone 2020-0 Yes 1{puff} Inhale 1 [facility] propion-tigist 2-20 Puff 2 ity of meterol 17:19: (two) [place] (ADVAIR 00 times Medical DISKUS) daily. Branch 250-50 mcg/dose inhalation disk diphenhydra 2020-0 Yes Take by [facility] mine HCl 2-20 mouth ity of (ALLERGY 17:19: daily. [place] RELIEF Medical ORAL) Branch aspirin 81 2020-0 Yes 81mg Take 81 mg [facility] mg chewable 2-20 by mouth ity of tablet 17:19: daily. [facility] vitamin B 2020-0 Yes Take by [facility] complex (B 2-20 mouth ity of COMPLEX-VIT 17:19: daily. [place] LE[place] B12 [facility] ORAL[place] [facility] albuterol 2019-0 Yes Use 1 puff [facility] (PROAIR 2-20 by mouth ity of HFA) 90 17:19: [place] 4 [place] m[place]/actuati 00 6 hours as Me dical on inhaler needed for Bra nch wheezing fluticasone 2020-0 Yes 1{puff} Inhale 1 [facility] propion-tigist 2-20 Puff 2 ity of meterol 17:19: (two) [place] (ADVAIR 00 times Medical DISKUS) daily. Branch 250-50 mcg/dose inhalation disk diphenhydra 2020-0 Yes Take by [facility] mine HCl 2-20 mouth ity of (ALLERGY 17:19: daily. [place] RELIEF Medical ORAL) Branch aspirin 81 2020-0 Yes 81mg Take 81 mg [facility] mg chewable 2-20 by mouth ity of tablet 17:19: daily. [facility] vitamin B 2020-0 Yes Take by [facility] complex (B 2-20 mouth ity of COMPLEX-VIT 17:19: daily. [place] LE[place] B12 00 Medical ORAL) Branch albuterol 2020-0 Yes Use 1 puff [facility] (PROAIR 2-20 by mouth ity of HFA) 90 17:19: every 4 [place] mcg/actuati 00 6 hours as Me dical on inhaler needed for Bra nch wheezing fluticasone 2020-0 Yes 1{puff} Inhale 1 [facility] propion-tigist 2-20 Puff 2 ity of meterol 17:19: (two) [place] (ADVAIR 00 times Medical DISKUS) daily. Branch 250-50 mcg/dose inhalation disk diphenhydra 2020-0 Yes Take by [facility] mine HCl 2-20 mouth ity of (ALLERGY 17:19: daily. [place] RELIEF Medical ORAL) Branch aspirin 81 2020-0 Yes 81mg Take 81 mg [facility] mg chewable 2-20 by mouth ity of tablet 17:19: daily. [facility] vitamin B 2020-0 Yes Take by [facility] complex (B 2-20 mouth ity of COMPLEX-VIT 17:19: daily. [place] [facility] B12 [facility] ORAL) Branch albuterol 2020-0 Yes Use 1 puff [facility] (PROAIR 2-20 by mouth ity of HFA) 90 17:19: every 4 to [place] mcg/actuati 00 6 hours as Me dical on inhaler needed for Bra nch wheezing fluticasone 2020-0 Yes 1{puff} Inhale 1 [facility] propion-tigist 2-20 Puff 2 ity of meterol 17:19: (two) [place] (ADVAIR 00 times Medical DISKUS) daily. Branch 250-50 mcg/dose inhalation disk diphenhydra 2020-0 Yes Take by [facility] mine HCl 2-20 mouth ity of (ALLERGY 17:19: daily. [place] RELIEF Medical ORAL) Branch aspirin 81 2020-0 Yes 81mg Take 81 mg [facility] mg chewable 2-20 by mouth ity of tablet 17:19: daily. [facility] vitamin B 2020-0 Yes Take by [facility] complex (B 2-20 mouth ity of COMPLEX-VIT 17:19: daily. [place] [facility] B12 [facility] ORAL) Branch albuterol 2020-0 Yes Use 1 puff [facility] (PROAIR 2-20 by mouth ity of HFA) 90 17:19: every 4 to [place] mcg/actuati 00 6 hours as Me dical on inhaler needed for Bra nch wheezing fluticasone 2020-0 Yes 1{puff} Inhale 1 [facility] propion-tigist 2-20 Puff 2 ity of meterol 17:19: (two) [place] (ADVAIR 00 times Medical DISKUS) daily. Branch 250-50 mcg/dose inhalation disk diphenhydra 2020-0 Yes Take by [facility] mine HCl 2-20 mouth ity of (ALLERGY 17:19: daily. [place] RELIEF Medical ORAL) Branch aspirin 81 2020-0 Yes 81mg Take 81 mg [facility] mg chewable 2-20 by mouth ity of tablet 17:19: daily. [facility] vitamin B 2020-0 Yes Take by [facility] complex (B 2-20 mouth ity of COMPLEX-VIT 17:19: daily. [place] LE[place] B12 00 Medical ORAL) Branch albuterol 2020-0 Yes Use 1 puff [facility] (PROAIR 2-20 by mouth ity of HFA) 90 17:19: every 4 to [place] mcg/actuati 00 6 hours as Me dical on inhaler needed for Bra nch wheezing fluticasone 2020-0 Yes 1{puff} Inhale 1 [facility] propion-tigist 2-20 Puff 2 ity of meterol 17:19: (two) [place] (ADVAIR 00 times Medical DISKUS) daily. Branch 250-50 mcg/dose inhalation disk diphenhydra 2020-0 Yes Take by [facility] mine HCl 2-20 mouth ity of (ALLERGY 17:19: daily. [place] RELIEF Medical ORAL) Branch aspirin 81 2020-0 Yes 81mg Take 81 mg [facility] mg chewable 2-20 by mouth ity of tablet 17:19: daily. [facility] vitamin B 2020-0 Yes Take by [facility] complex (B 2-20 mouth ity of COMPLEX-VIT 17:19: daily. [place] LE[place] B12 00 Medical ORAL) Branch albuterol 2020-0 Yes Use 1 puff [facility] (PROAIR 2-20 by mouth ity of HFA) 90 17:19: every 4 to [place] mcg/actuati 00 6 hours as Me dical on inhaler needed for Bra nch wheezing diphenhydra 2020-0 Yes Take by [facility] mine HCl 2-20 mouth ity of (ALLERGY 17:19: daily. [place] RELIEF Medical ORAL) Branch aspirin 81 2020-0 Yes 81mg Take 81 mg [facility] mg chewable 2-20 by mouth ity of tablet 17:19: daily. [facility] vitamin B 2020-0 Yes Take by [facility] complex (B 2-20 mouth ity of COMPLEX-VIT 17:19: daily. [place] [facility] B12 [facility] ORAL) Branch diphenhydra 2020-0 Yes Take by [facility] mine HCl 2-20 mouth ity of (ALLERGY 17:19: daily. [place] RELIEF Medical ORAL) Branch aspirin 81 2020-0 Yes 81mg Take 81 mg [facility] mg chewable 2-20 by mouth ity of tablet 17:19: daily. [facility] vitamin B 2020-0 Yes Take by [facility] complex (B 2-20 mouth ity of COMPLEX-VIT 17:19: daily. [place] [facility] B12 [facility] ORAL) Branch diphenhydra 2020-0 Yes Take by [facility] mine HCl 2-20 mouth ity of (ALLERGY 17:19: daily. [place] RELIEF Medical ORAL) Branch aspirin 81 2020-0 Yes 81mg Take 81 mg [facility] mg chewable 2-20 by mouth ity of tablet 17:19: daily. [facility] vitamin B 2020-0 Yes Take by [facility] complex (B 2-20 mouth ity of COMPLEX-VIT 17:19: daily. [place] [facility] B12 [facility] ORAL) Branch diphenhydra 2020-0 Yes Take by [facility] mine HCl 2-20 mouth ity of (ALLERGY 17:19: daily. [place] RELIEF Medical ORAL) Branch aspirin 81 2020-0 Yes 81mg Take 81 mg [facility] mg chewable 2-20 by mouth ity of tablet 17:19: daily. [facility] vitamin B 2020-0 Yes Take by [facility] complex (B 2-20 mouth ity of COMPLEX-VIT 17:19: daily. [place] [facility] B12 [facility] ORAL) Branch diphenhydra 2020-0 Yes Take by [facility] mine HCl 2-20 mouth ity of (ALLERGY 17:19: daily. [place] RELIEF Medical ORAL) Branch aspirin 81 2020-0 Yes 81mg Take 81 mg [facility] mg chewable 2-20 by mouth ity of tablet 17:19: daily. [facility] vitamin B 2020-0 Yes Take by [facility] complex (B 2-20 mouth ity of COMPLEX-VIT 17:19: daily. [place] [facility] B12 [facility] ORAL) Branch diphenhydra 2020-0 Yes Take by [facility] mine HCl 2-20 mouth ity of (ALLERGY 17:19: daily. [place] RELIEF Medical ORAL) Branch aspirin 81 2020-0 Yes 81mg Take 81 mg [facility] mg chewable 2-20 by mouth ity of tablet 17:19: daily. Medical Branch vitamin B 2020-0 Yes Take by [facility] complex (B 2-20 mouth ity of COMPLEX-VIT 17:19: daily. [place] [facility] B12 [facility] ORAL) Branch diphenhydra 2020-0 Yes Take by [facility] mine HCl 2-20 mouth ity of (ALLERGY 17:19: daily. [place] RELIEF Medical ORAL) Branch aspirin 81 2020-0 Yes 81mg Take 81 mg [facility] mg chewable 2-20 by mouth ity of tablet 17:19: daily. [facility] vitamin B 2020-0 Yes Take by [facility] complex (B 2-20 mouth ity of COMPLEX-VIT 17:19: daily. [place] [facility] B12 [facility] ORAL) Branch diphenhydra 2020-0 Yes Take by [facility] mine HCl 2-20 mouth ity of (ALLERGY 17:19: daily. [place] RELIEF Medical ORAL) Branch aspirin 81 2020-0 Yes 81mg Take 81 mg [facility] mg chewable 2-20 by mouth ity of tablet 17:19: daily. [facility] vitamin B 2020-0 Yes Take by [facility] ers complex (B 2-20 mouth ity of COMPLEX-VIT 17:19: daily. [place] [facility] B12 [facility] ORAL) Branch diphenhydra 2020-0 Yes Take by [facility] mine HCl 2-20 mouth ity of (ALLERGY 17:19: daily. [place] RELIEF Medical ORAL) Branch aspirin 81 2020-0 Yes 81mg Take 81 mg [facility] mg chewable 2-20 by mouth ity of tablet 17:19: daily. [facility] vitamin B 2020-0 Yes Take by [facility] complex (B 2-20 mouth ity of COMPLEX-VIT 17:19: daily. [place] [facility] B12 [facility] ORAL) Branch diphenhydra 2020-0 Yes Take by [facility] mine HCl 2-20 mouth ity of (ALLERGY 17:19: daily. [place] RELIEF Medical ORAL) Branch aspirin 81 2020-0 Yes 81mg Take 81 mg [facility] mg chewable 2-20 by mouth ity of tablet 17:19: daily. Medical Branch vitamin B 2020-0 Yes Take by [facility] ers complex (B 2-20 mouth ity of COMPLEX-VIT 17:19: daily. [facility] B12 [facility] ORAL) Branch diphenhydra 2020-0 Yes Take by [facility] mine HCl 2-20 mouth ity of (ALLERGY 17:19: daily. [place] RELIEF Medical ORAL) Branch aspirin 81 2020-0 Yes 81mg Take 81 mg [facility] mg chewable 2-20 by mouth ity of tablet 17:19: daily. Medical Branch vitamin B 2020-0 Yes Take by [facility] ers complex (B 2-20 mouth ity of COMPLEX-VIT 17:19: daily. [place] [facility] LEON B12 Medical ORAL) Branch diphenhydra 2020-0 Yes Take by [facility] mine HCl 2-20 mouth ity of (ALLERGY 17:19: daily. [place] RELIEF Medical ORAL) Branch aspirin 81 2020-0 Yes 81mg Take 81 mg [facility] mg chewable 2-20 by mouth ity of tablet 17:19: daily. Medical Branch vitamin B 2020-0 Yes Take by [facility] ers complex (B 2-20 mouth ity of COMPLEX-VIT 17:19: daily. [facility] B12 [facility] ORAL) Branch diphenhydra 2020-0 Yes Take by [facility] mine HCl 2-20 mouth ity of (ALLERGY 17:19: daily. [place] RELIEF Medical ORAL) Branch aspirin 81 2020-0 Yes 81mg Take 81 mg [facility] mg chewable 2-20 by mouth ity of tablet 17:19: daily. Medical Branch vitamin B 2020-0 Yes Take by [facility] ers complex (B 2-20 mouth ity of COMPLEX-VIT 17:19: daily. [facility] B12 [facility] ORAL) Branch diphenhydra 2020-0 Yes Take by [facility] mine HCl 2-20 mouth ity of (ALLERGY 17:19: daily. [place] RELIEF Medical ORAL) Branch aspirin 81 2020-0 Yes 81mg Take 81 mg [facility] mg chewable 2-20 by mouth ity of tablet 17:19: daily. Medical Branch vitamin B 2020-0 Yes Take by [facility] ers complex (B 2-20 mouth ity of COMPLEX-VIT 17:19: daily. [place] [facility] B12 Medical ORAL) Branch diphenhydra 2020-0 Yes Take by [facility] mine HCl 2-20 mouth ity of (ALLERGY 17:19: daily. [place] RELIEF Medical ORAL) Branch aspirin 81 2020-0 Yes 81mg Take 81 mg [facility] mg chewable 2-20 by mouth ity of tablet 17:19: daily. Medical Branch vitamin B 2020-0 Yes Take by [facility] ers complex (B 2-20 mouth ity of COMPLEX-VIT 17:19: daily. [place] [facility] B12 Medical ORAL) Branch diphenhydra 2020-0 Yes Take by [facility] mine HCl 2-20 mouth ity of (ALLERGY 17:19: daily. [place] RELIEF Medical ORAL) Branch aspirin 81 2020-0 Yes 81mg Take 81 mg [facility] mg chewable 2-20 by mouth ity of tablet 17:19: daily. Medical Branch vitamin B 2020-0 Yes Take by [facility] complex (B 2-20 mouth ity of COMPLEX-VIT 17:19: daily. [place] [facility] B12 Medical ORAL) Branch diphenhydra 2020-0 Yes Take by [facility] mine HCl 2-20 mouth ity of (ALLERGY 17:19: daily. [place] RELIEF Medical ORAL) Branch aspirin 81 2020-0 Yes 81mg Take 81 mg [facility] mg chewable 2-20 by mouth ity of tablet 17:19: daily. Medical Branch vitamin B 2020-0 Yes Take by [facility] ers complex (B 2-20 mouth ity of COMPLEX-VIT 17:19: daily. [place] [facility] B12 Medical ORAL) Branch diphenhydra 2020-0 Yes Take by [facility] mine HCl 2-20 mouth ity of (ALLERGY 17:19: daily. [place] RELIEF Medical ORAL) Branch aspirin 81 2020-0 Yes 81mg Take 81 mg [facility] mg chewable 2-20 by mouth ity of tablet 17:19: daily. Medical Branch vitamin B 2020-0 Yes Take by [facility] ers complex (B 2-20 mouth ity of COMPLEX-VIT 17:19: daily. [place] LEON B12 Medical ORAL) Branch diphenhydra 2020-0 Yes Take by [facility] mine HCl 2-20 mouth ity of (ALLERGY 17:19: daily. [place] RELIEF Medical ORAL) Branch aspirin 81 2020-0 Yes 81mg Take 81 mg [facility] mg chewable 2-20 by mouth ity of tablet 17:19: daily. Medical Branch vitamin B 2020-0 Yes Take by [facility] ers complex (B 2-20 mouth ity of COMPLEX-VIT 17:19: daily. [place] [facility] LEON B12 Medical ORAL) Branch diphenhydra 2020-0 Yes Take by [facility] mine HCl 2-20 mouth ity of (ALLERGY 17:19: daily. [place] RELIEF Medical ORAL) Branch aspirin 81 2020-0 Yes 81mg Take 81 mg [facility] mg chewable 2-20 by mouth ity of tablet 17:19: daily. Medical Branch vitamin B 2020-0 Yes Take by [facility] ers complex (B 2-20 mouth ity of COMPLEX-VIT 17:19: daily. [place] [facility] LEON B12 Medical ORAL) Branch diphenhydra 2020-0 Yes Take by [facility] mine HCl 2-20 mouth ity of (ALLERGY 17:19: daily. [place] RELIEF Medical ORAL) Branch aspirin 81 2020-0 Yes 81mg Take 81 mg [facility] mg chewable 2-20 by mouth ity of tablet 17:19: daily. Medical Branch vitamin B 2020-0 Yes Take by [facility] ers complex (B 2-20 mouth ity of COMPLEX-VIT 17:19: daily. [place] LEON B12 Medical ORAL) Branch diphenhydra 2020-0 Yes Take by [facility] mine HCl 2-20 mouth ity of (ALLERGY 17:19: daily. [place] RELIEF Medical ORAL) Branch aspirin 81 2020-0 Yes 81mg Take 81 mg [facility] mg chewable 2-20 by mouth ity of tablet 17:19: daily. Medical Branch vitamin B 2020-0 Yes Take by [facility] ers complex (B 2-20 mouth ity of COMPLEX-VIT 17:19: daily. [place] LEON B12 Medical ORAL) Branch diphenhydra 2020-0 Yes Take by [facility] mine HCl 2-20 mouth ity of (ALLERGY 17:19: daily. [place] RELIEF Medical ORAL) Branch aspirin 81 2020-0 Yes 81mg Take 81 mg [facility] mg chewable 2-20 by mouth ity of tablet 17:19: daily. Medical Branch vitamin B 2020-0 Yes Take by [facility] ers complex (B 2-20 mouth ity of COMPLEX-VIT 17:19: daily. [place] LEON B12 Medical ORAL) Branch diphenhydra 2020-0 Yes Take by [facility] mine HCl 2-20 mouth ity of (ALLERGY 17:19: daily. [place] RELIEF Medical ORAL) Branch aspirin 81 2020-0 Yes 81mg Take 81 mg U nivers mg chewable 2-20 by mouth ity of tablet 17:19: daily. [place] [facility] Branch vitamin B 2020-0 Yes Take by [facility] ers complex (B 2-20 mouth ity of COMPLEX-VIT 17:19: daily. [place] LEON B12 Medical ORAL) Branch diphenhydra 2020-0 Yes Take by [facility] mine HCl 2-20 mouth ity of (ALLERGY 11:19: daily. [place] RELIEF Medical ORAL) Branch diphenhydra 2020-0 Yes Take by [facility] mine HCl 2-20 mouth ity of (ALLERGY 11:19: daily. [place] RELIEF Medical ORAL) Branch diphenhydra 2020-0 Yes Take by [facility] mine HCl 2-20 mouth ity of (ALLERGY 11:19: daily. [place] RELIEF Medical ORAL) Branch diphenhydra 2020-0 Yes Take by [facility] mine HCl 2-20 mouth ity of (ALLERGY 11:19: daily. [place] RELIEF Medical ORAL) Branch diphenhydra 2020-0 Yes Take by [facility] mine HCl 2-20 mouth ity of (ALLERGY 11:19: daily. [place] RELIEF Medical ORAL) Branch fluticasone 2020-0 Yes [id number] 1{puff} Inhale 1 [facility] propion-tigist 2-20 Puff every it y of meterol 00:00: 12 [place] (ADVAIR 00 (twelve) Medical DISKUS) hours. Branch 250-50 mcg/dose inhalation disk albuterol 2020-0 Yes [id number] 2{puff} Inhale 2 [facility] (PROAIR 2-20 Puffs ity of HFA) 90 00:00: every 6 [place] mcg/actuati 00 (six) Medical on inhaler hours as Branc h needed for Wheezing or Shortness of Breath (provided through OAT program). fluticasone 2020-0 Yes [id number] 1{puff} Inhale 1 [facility] propion-tigist 2-20 Puff every it y of meterol 00:00: 12 [place] (ADVAIR 00 (twelve) Medical DISKUS) hours. Branch 250-50 mcg/dose inhalation disk albuterol 2020-0 Yes [id number] 2{puff} Inhale 2 [facility] (PROAIR 2-20 Puffs ity of HFA) 90 00:00: every 6 [place] mcg/actuati 00 (six) Medical on inhaler hours as Branc h needed for Wheezing or Shortness of Breath (provided through OATH program). fluticasone 2020-0 Yes [id number] 1{puff} Inhale 1 [facility] propion-tigist 2-20 Puff every it y of meterol 00:00: 12 [place] (ADVAIR 00 (twelve) Medical DISKUS) hours. Branch 250-50 mcg/dose inhalation disk albuterol 2020-0 Yes [id number] 2{puff} Inhale 2 [facility] (PROAIR 2-20 Puffs ity of HFA) 90 00:00: every 6 [place] mcg/actuati 00 (six) Medical on inhaler hours as Branc h needed for Wheezing or Shortness of Breath (provided through OATH program). fluticasone 2020-0 Yes [id number] 1{puff} Inhale 1 [facility] propion-tigist 2-20 Puff every it y of meterol 00:00: 12 [place] (ADVAIR 00 (twelve) Medical DISKUS) hours. Branch 250-50 mcg/dose inhalation disk albuterol 2020-0 Yes [id number] 2{puff} Inhale 2 [facility] (PROAIR 2-20 Puffs ity of HFA) 90 00:00: every 6 [place] mcg/actuati 00 (six) Medical on inhaler hours as Branc h needed for Wheezing or Shortness of Breath (provided through OATH program). fluticasone 2020-0 Yes [id number] 1{puff} Inhale 1 [facility] propion-tigist 2-20 Puff every it y of meterol 00:00: 12 [place] (ADVAIR 00 (twelve) Medical DISKUS) hours. Branch 250-50 mcg/dose inhalation disk albuterol 2020-0 Yes [id number] 2{puff} Inhale 2 [facility] (PROAIR 2-20 Puffs ity of HFA) 90 00:00: every 6 [place] mcg/actuati 00 (six) Medical on inhaler hours as Branc h needed for Wheezing or Shortness of Breath (provided through OATH program). fluticasone 2020-0 Yes [id number] 1{puff} Inhale 1 [facility] propion-tigist 2-20 Puff every it y of meterol 00:00: 12 [place] (ADVAIR 00 (twelve) Medical DISKUS) hours. Branch 250-50 mcg/dose inhalation disk albuterol 2020-0 Yes [id number] 2{puff} Inhale 2 [facility] (PROAIR 2-20 Puffs ity of HFA) 90 00:00: every 6 [place] mcg/actuati 00 (six) Medical on inhaler hours as Branc h needed for Wheezing or Shortness of Breath (provided through OATH program). fluticasone 2020-0 Yes [id number] 1{puff} Inhale 1 [facility] propion-tigist 2-20 Puff every it y of meterol 00:00: 12 [place] (ADVAIR 00 (twelve) Medical DISKUS) hours. Branch 250-50 mcg/dose inhalation disk albuterol 2020-0 Yes [id number] 2{puff} Inhale 2 [facility] (PROAIR 2-20 Puffs ity of HFA) 90 00:00: every 6 [place] mcg/actuati 00 (six) Medical on inhaler hours as Branc h needed for Wheezing or Shortness of Breath (provided through OATH program). fluticasone 2020-0 Yes [id number] 1{puff} Inhale 1 [facility] propion-tigist 2-20 Puff every it y of meterol 00:00: 12 [place] (ADVAIR 00 (twelve) Medical DISKUS) hours. Branch 250-50 mcg/dose inhalation disk albuterol 2020-0 Yes [id number] 2{puff} Inhale 2 [facility] (PROAIR 2-20 Puffs ity of HFA) 90 00:00: every 6 [place] mcg/actuati 00 (six) Medical on inhaler hours as Branc h needed for Wheezing or Shortness of Breath (provided through OATH program). fluticasone 2020-0 Yes [id number] 1{puff} Inhale 1 [facility] propion-tigist 2-20 Puff every it y of meterol 00:00: 12 [place] (ADVAIR 00 (twelve) Medical DISKUS) hours. Branch 250-50 mcg/dose inhalation disk albuterol 2020-0 Yes [id number] 2{puff} Inhale 2 [facility] (PROAIR 2-20 Puffs ity of HFA) 90 00:00: every 6 [place] mcg/actuati 00 (six) Medical on inhaler hours as Branc h needed for Wheezing or Shortness of Breath (provided through OATH program). fluticasone 2020-0 Yes [id number] 1{puff} Inhale 1 [facility] propion-tigist 2-20 Puff every it y of meterol 00:00: 12 [place] (ADVAIR 00 (twelve) Medical DISKUS) hours. Branch 250-50 mcg/dose inhalation disk albuterol 2020-0 Yes [id number] 2{puff} Inhale 2 [facility] (PROAIR 2-20 Puffs ity of HFA) 90 00:00: every 6 [place] mcg/actuati 00 (six) Medical on inhaler hours as Branc h needed for Wheezing or Shortness of Breath (provided through OATH program). fluticasone 2020-0 Yes [id number] 1{puff} Inhale 1 [facility] propion-tigist 2-20 Puff every it y of meterol 00:00: 12 [place] (ADVAIR 00 (twelve) Medical DISKUS) hours. Branch 250-50 mcg/dose inhalation disk albuterol 2020-0 Yes [id number] 2{puff} Inhale 2 [facility] (PROAIR 2-20 Puffs ity of HFA) 90 00:00: every 6 [place] mcg/actuati 00 (six) Medical on inhaler hours as Branc h needed for Wheezing or Shortness of Breath (provided through OATH program). fluticasone 2020-0 Yes [id number] 1{puff} Inhale 1 [facility] propion-tigist 2-20 Puff every it y of meterol 00:00: 12 [place] (ADVAIR 00 (twelve) Medical DISKUS) hours. Branch 250-50 mcg/dose inhalation disk albuterol 2020-0 Yes [id number] 2{puff} Inhale 2 [facility] (PROAIR 2-20 Puffs ity of HFA) 90 00:00: every 6 [place] mcg/actuati 00 (six) Medical on inhaler hours as Branc h needed for Wheezing or Shortness of Breath (provided through OATH program). fluticasone 2020-0 Yes [id number] 1{puff} Inhale 1 [facility] propion-tigist 2-20 Puff every it y of meterol 00:00: 12 [place] (ADVAIR 00 (twelve) Medical DISKUS) hours. Branch 250-50 mcg/dose inhalation disk albuterol 2020-0 Yes [id number] 2{puff} Inhale 2 [facility] (PROAIR 2-20 Puffs ity of HFA) 90 00:00: every 6 [place] mcg/actuati 00 (six) Medical on inhaler hours as Branc h needed for Wheezing or Shortness of Breath (provided through OATH program). fluticasone 2020-0 Yes [id number] 1{puff} Inhale 1 [facility] propion-tigist 2-20 Puff every it y of meterol 00:00: 12 [place] (ADVAIR 00 (twelve) Medical DISKUS) hours. Branch 250-50 mcg/dose inhalation disk albuterol 2020-0 Yes [id number] 2{puff} Inhale 2 [facility] (PROAIR 2-20 Puffs ity of HFA) 90 00:00: every 6 [place] mcg/actuati 00 (six) Medical on inhaler hours as Branc h needed for Wheezing or Shortness of Breath (provided through OATH program). fluticasone 2020-0 2020- No [id number] 1{puff} Inhale 1 [facility] propion-tigist 2-20 08-06 Puff every i ty of meterol 00:00: 00:00 12 [place] (ADVAIR 00 :00 (twelve) Medical DISKUS) hours. Branch 250-50 mcg/dose inhalation disk albuterol 2020-0 2020- No [id number] 2{puff} Inhale 2 [facility] (PROAIR 2-20 08-06 Puffs ity of HFA) 90 00:00: 00:00 every 6 [place] mcg/actuati 00 :00 (six) Medical on inhaler hours as Branc h needed for Wheezing or Shortness of Breath (provided through OATH program). fluticasone 2020-0 2020- No [id number] 1{puff} Inhale 1 [facility] propion-tigist 2-20 08-06 Puff every i ty of meterol 00:00: 00:00 12 [place] (ADVAIR 00 :00 (twelve) Medical DISKUS) hours. Branch 250-50 mcg/dose inhalation disk albuterol 2020-0 2020- No [id number] 2{puff} Inhale 2 [facility] (PROAIR 2-20 08-06 Puffs ity of HFA) 90 00:00: 00:00 every 6 [place] mcg/actuati 00 :00 (six) Medical on inhaler hours as Branc h needed for Wheezing or Shortness of Breath (provided through OATH program). fluticasone 2020-0 2020- No [id number] 1{puff} Inhale 1 [facility] propion-tigist 2-20 08-06 Puff every i ty of meterol 00:00: 00:00 12 [place] (ADVAIR 00 :00 (twelve) Medical DISKUS) hours. Branch 250-50 mcg/dose inhalation disk albuterol 2020-0 2020- No [id number] 2{puff} Inhale 2 [facility] (PROAIR 2-20 08-06 Puffs ity of HFA) 90 00:00: 00:00 every 6 [place] mcg/actuati 00 :00 (six) Medical on inhaler hours as Branc h needed for Wheezing or Shortness of Breath (provided through OATH program). Immunizations Ordered Filled Immunization Date Status Comments [facility] e Immunization Name Name Influenza Virus 2021-11-01 Completed [facility] Vaccine [facility] IM, 00:00:00 [place] [facility] Preserv and ABX Branch Free 6 MO-64 YRS Influenza Virus 2021-11-01 Completed [facility] of Vaccine [facility] IM, 00:00:00 [place] [facility] Preserv and ABX Branch Free 6 MO-64 YRS SARS-COV-2 COVID-19 2021-03-16 Completed Unive rsity of MODERNA VACCINE 00:00:00 [facility] [place] [facility] ical Branch SARS-COV-2 COVID-19 2021-03-16 Completed Unive rsity of MODERNA VACCINE 00:00:00 [facility] [place] [facility] ical Branch SARS-COV-2 COVID-19 2021-03-16 Completed [facility]19 2021-03-16 Completed Unive rsity of MODERNA VACCINE [facility]:00[facility] 2020-09-18 Completed [facility] of Vaccine Quad .5 mL 00:00:00 [place] [facility] IM 6+ MO Branch Influenza Virus 2020-09-18 Completed [facility] y of Vaccine [facility] .5 mL 00:00:00 [place] [facility] IM 6+ MO Branch Influenza Virus 2020-09-18 Completed [facility]it y of Vaccine [facility] .5 mL 00:00:00 [place] [facility] IM 6+ MO Branch Influenza Virus 2020-09-18 Completed [facility]it y of Vaccine [facility] .5 mL 00:00:00 [place] [facility] IM 6+ MO Branch Influenza Virus 2020-09-18 Completed [facility]it y of Vaccine Quad .5 mL 00:00:00 [place] [facility] IM 6+ MO Branch Influenza Virus 2020-09-18 Completed [facility]it y of Vaccine Quad .5 mL 00:00:00 [place] [facility] IM 6+ MO Branch Influenza Virus 2020-09-18 Completed [facility]it y of Vaccine Quad .5 mL 00:00:00 [place] [facility] IM 6+ MO Branch Influenza Virus 2020-09-18 Com[facility] .[facility] 00:00[facility]00 [facility] Influenza Virus 2020-09-18 Completed [facility] .[facility] 00:00:00 [facility] Influenza Virus 2020-09-18 Completed [facility] .5 mL 00:00:00 [facility] Influenza Virus 2020-09-18 Completed [facility] .5 mL 00:00:00 [facility] Influenza Virus 2020-09-18 Completed [facility] .5 mL 00:00:00 [facility] Influenza Virus 2020-09-18 Completed [facility] .5 mL 00:00:00 [facility] Influenza Virus 2020-09-18 Completed [facility] .5 mL 00:00:00 [facility] Influenza Virus 2020-09-18 Completed [facility] .5 mL 00:00:00 [facility] Influenza Virus 2020-09-18 Completed [facility] .5 mL 00:00:00 [facility] Influenza Virus 2020-09-18 Completed [facility] .5 mL 00:00:00 [facility] Influenza Virus 2020-09-18 Completed [facility] .5 mL 00:00:00 [facility] Influenza Virus 2020-09-18 Completed [facility] .5 mL 00:00:00 [facility] Influenza Virus 2020-09-18 Completed [facility] .5 mL 00:00:00 [facility] Influenza Virus 2020-09-18 Completed [facility] .5 mL 00:00:00 [facility] Influenza Virus 2020-09-18 Completed [facility] .5 mL 00:00:00 [facility] Influenza Virus 2020-09-18 Completed [facility] .5 mL 00:00:00 [facility] Influenza Virus 2020-09-18 Completed [facility] .5 mL 00:00:00 [facility] Influenza Virus 2020-09-18 Completed [facility] .5 mL 00:00:00 [facility] Influenza Virus 2020-09-18 Completed [facility] .5 mL 00:00:00 [facility] Influenza Virus 2020-09-18 Completed [facility] .5 mL 00:00:00 [facility] Influenza Virus 2020-09-18 Completed [facility] .5 mL 00:00:00 [facility] Influenza Virus 2020-09-18 Completed [facility] .5 mL 00:00:00 [facility] Influenza Virus 2020-09-18 Completed [facility] .5 mL 00:00:00 [facility] Influenza Virus 2020-09-18 Completed [facility] .5 mL 00:00:00 [facility] Influenza Virus 2020-09-18 Completed [facility] .5 mL 00:00:00 [facility] Influenza Virus 2020-09-18 Completed [facility] .5 mL 00:00:00 [facility] Influenza Virus 2020-09-18 Completed [facility] .5 mL 00:00:00 [facility] Influenza Virus 2020-09-18 Completed [facility] .5 mL 00:00:00 [facility] Influenza Virus 2020-09-18 Completed [facility] .5 mL 00:00:00 [facility] Influenza Virus 2020-09-18 Completed [facility] .5 mL 00:00:00 [facility] Influenza Virus 2020-09-18 Completed [facility] .5 mL 00:00:00 [facility] Influenza Virus 2020-09-18 Completed [facility] .5 mL 00:00:00 [facility] Influenza Virus 2020-09-18 Completed [facility] .5 mL 00:00:00 [facility] Influenza Virus 2020-09-18 Completed [facility] .5 mL 00:00:00 [facility] Influenza Virus 2020-09-18 Completed [facility] .5 mL 00:00:00 [facility] Influenza Virus 2020-09-18 Completed [facility] .5 mL 00:00:00 [facility] Influenza Virus 2020-09-18 Completed [facility] .5 mL 00:00:00 [facility] Influenza Virus 2020-09-18 Completed [facility] .5 mL 00:00:00 [facility] Influenza Virus 2020-09-18 Completed [facility] .5 mL 00:00:00 [facility] Influenza Virus 2020-09-18 Completed [facility] .5 mL 00:00:00 [facility] Influenza Virus 2020-09-18 Completed [facility] .5 mL 00:00:00 [facility] Influenza Virus 2020-09-18 Completed [facility] .5 mL 00:00:00 [facility] Pneumococcal 2020-01-11 Completed [facility] Polysaccharide, 00:00:00 [facility] PPSV23 (PNEUMOVAX) [facility] Zoster Vaccine 2020-01-11 Completed [facility] Recombinant 00:00:00 [facility] Pneumococcal 2020-01-11 Completed [facility] Polysaccharide, 00:00:00 [facility] PPSV23 (PNEUMOVAX) [facility]oster Vaccine 2020-01-11 Completed [facility] Recombinant 00:00:00 [facility] Pneumococcal 2020-01-11 Completed [facility] f Polysaccharide, 00:00:00 [facility] PPSV23 (PNEUMOVAX) [facility]oster Vaccine 2020-01-11 Completed [facility] Recombinant 00:00:00 [facility] Pneumococcal 2020-01-11 Completed [facility] Polysaccharide, 00:00:00 [facility] PPSV23 (PNEUMOVAX) [facility] Zoster Vaccine 2020-01-11 Completed [facility] Recombinant 00:00:00 [facility] Pneumococcal 2020-01-11 Completed [facility] Polysaccharide, 00:00:00 [facility] PPSV23 (PNEUMOVAX) [facility] Zoster Vaccine 2020-01-11 Completed [facility] Recombinant 00:00:00 [facility] Pneumococcal 2020-01-11 Completed [facility] Polysaccharide, 00:00:00 [facility] PPSV23 (PNEUMOVAX) [facility] Zoster Vaccine 2020-01-11 Completed [facility] Recombinant 00:00:00 [facility] Pneumococcal 2020-01-11 Completed [facility] Polysaccharide, 00:00:00 [facility] PPSV23 (PNEUMOVAX) [facility]oster Vaccine 2020-01-11 Completed [facility] Recombinant 00:00:00 [facility] Pneumococcal 2020-01-11 Completed [facility] Polysaccharide, 00:00:00 [facility] PPSV23 (PNEUMOVAX) [facility] Vaccine 2020-01-11 Completed [facility] Recombinant 00:00:00 [facility] Pneumococcal 2020-01-11 Completed [facility] Polysaccharide, 00:00:00 [facility] PPSV23 (PNEUMOVAX) [facility]oster Vaccine 2020-01-11 Completed [facility] Recombinant 00:00:00 [facility] Pneumococcal 2020-01-11 Completed [facility] Polysaccharide, 00:00:00 [facility] PPSV23 (PNEUMOVAX) [facility]oster Vaccine 2020-01-11 Completed [facility] Recombinant 00:00:00 [facility] Pneumococcal 2020-01-11 Completed [facility] Polysaccharide, 00:00:00 [facility] PPSV23 (PNEUMOVAX) [facility] Vaccine 2020-01-11 Completed [facility] Recombinant 00:00:00 [facility] Pneumococcal 2020-01-11 Completed [facility] Polysaccharide, 00:00:00 [facility] PPSV23 (PNEUMOVAX) [facility] Vaccine 2020-01-11 Completed [facility] Recombinant 00:00:00 [facility] Pneumococcal 2020-01-11 Completed [facility] Polysaccharide, 00:00:00 [facility] PPSV23 (PNEUMOVAX) [facility]oster Vaccine 2020-01-11 Completed [facility] Recombinant 00:00:00 [facility] Pneumococcal 2020-01-11 Completed [facility] Polysaccharide, 00:00:00 [facility] PPSV23 (PNEUMOVAX) [facility] Vaccine 2020-01-11 Completed [facility] Recombinant 00:00:00 [facility] Pneumococcal 2020-01-11 Completed [facility] Polysaccharide, 00:00:00 [facility] PPSV23 (PNEUMOVAX) [facility] Vaccine 2020-01-11 Completed [facility] Recombinant 00:00:00 [facility] Pneumococcal 2020-01-11 Completed [facility] Polysaccharide, 00:00:00 [facility] PPSV23 (PNEUMOVAX) [facility] Vaccine 2020-01-11 Completed [facility] Recombinant 00:00:00 [facility] Pneumococcal 2020-01-11 Completed [facility] Polysaccharide, 00:00:00 [facility] PPSV23 (PNEUMOVAX) [facility] Vaccine 2020-01-11 Completed [facility] Recombinant 00:00:00 [facility] Pneumococcal 2020-01-11 Completed [facility] Polysaccharide, 00:00:00 [facility] PPSV23 (PNEUMOVAX) [facility] Vaccine 2020-01-11 Completed [facility] Recombinant 00:00:00 [facility] Pneumococcal 2020-01-11 Completed [facility] Polysaccharide, 00:00:00 [facility] PPSV23 (PNEUMOVAX) [facility] Vaccine 2020-01-11 Completed [facility] Recombinant 00:00:00 [facility] Pneumococcal 2020-01-11 Completed [facility] Polysaccharide, 00:00:00 [facility] PPSV23 (PNEUMOVAX) [facility] Vaccine 2020-01-11 Completed [facility] Recombinant 00:00:00 [facility] Pneumococcal 2020-01-11 Completed [facility] Polysaccharide, 00:00:00 [facility] PPSV23 (PNEUMOVAX) [facility] Vaccine 2020-01-11 Completed [facility] Recombinant 00:00:00 [facility] Pneumococcal 2020-01-11 Completed [facility] Polysaccharide, 00:00:00 [facility] PPSV23 (PNEUMOVAX) [facility] Vaccine 2020-01-11 Completed [facility] Recombinant 00:00:00 [facility] Pneumococcal 2020-01-11 Completed [facility] Polysaccharide, 00:00:00 [facility] PPSV23 (PNEUMOVAX) [facility] Zoster Vaccine 2020-01-11 Completed [facility] Recombinant 00:00:00 [facility] Pneumococcal 2020-01-11 Completed [facility] Polysaccharide, 00:00:00 [facility] PPSV23 (PNEUMOVAX) [facility] Vaccine 2020-01-11 Completed [facility] Recombinant 00:00:00 [facility] Pneumococcal 2020-01-11 Completed [facility] Polysaccharide, 00:00:00 [facility] PPSV23 (PNEUMOVAX) [facility] Vaccine 2020-01-11 Completed [facility] Recombinant 00:00:00 [facility] Pneumococcal 2020-01-11 Completed [facility] Polysaccharide, 00:00:00 [facility] PPSV23 (PNEUMOVAX) [facility] Vaccine 2020-01-11 Completed [facility] Recombinant 00:00:00 [facility] Pneumococcal 2020-01-11 Completed [facility] Polysaccharide, 00:00:00 [facility] PPSV23 (PNEUMOVAX) [facility] Vaccine 2020-01-11 Completed [facility] Recombinant 00:00:00 [facility] Pneumococcal 2020-01-11 Completed [facility] Polysaccharide, 00:00:00 [facility] PPSV23 (PNEUMOVAX) [facility] Vaccine 2020-01-11 Completed [facility] Recombinant 00:00:00 [facility] Pneumococcal 2020-01-11 Completed [facility] Polysaccharide, 00:00:00 [facility] PPSV23 (PNEUMOVAX) [facility] Vaccine 2020-01-11 Completed [facility] Recombinant 00:00:00 [facility] Pneumococcal 2020-01-11 Completed [facility] Polysaccharide, 00:00:00 [facility] PPSV23 (PNEUMOVAX) [facility] Vaccine 2020-01-11 Completed [facility] Recombinant 00:00:00 [facility] Pneumococcal 2020-01-11 Completed [facility] Polysaccharide, 00:00:00 [facility] PPSV23 (PNEUMOVAX) [facility] Vaccine 2020-01-11 Completed [facility] Recombinant 00:00:00 [facility] Pneumococcal 2020-01-11 Completed [facility] Polysaccharide, 00:00:00 [facility] PPSV23 (PNEUMOVAX) [facility] Vaccine 2020-01-11 Completed [facility] Recombinant 00:00:00 [facility] Pneumococcal 2020-01-11 Completed [facility] Polysaccharide, 00:00:00 [facility] PPSV23 (PNEUMOVAX) [facility] Vaccine 2020-01-11 Completed [facility] Recombinant 00:00:00 [facility] Pneumococcal 2020-01-11 Completed [facility] Polysaccharide, 00:00:00 [facility] PPSV23 (PNEUMOVAX) [facility] Vaccine 2020-01-11 Completed [facility] Recombinant 00:00:00 [facility] Pneumococcal 2020-01-11 Completed [facility] Polysaccharide, 00:00:00 [facility] PPSV23 (PNEUMOVAX) [facility] Vaccine 2020-01-11 Completed [facility] Recombinant 00:00:00 [facility] Pneumococcal 2020-01-11 Completed [facility] Polysaccharide, 00:00:00 [facility] PPSV23 (PNEUMOVAX) [facility] Vaccine 2020-01-11 Completed [facility] Recombinant 00:00:00 [facility] Pneumococcal 2020-01-11 Completed [facility] Polysaccharide, 00:00:00 [facility] PPSV23 (PNEUMOVAX) [facility] Vaccine 2020-01-11 Completed [facility] Recombinant 00:00:00 [facility] Pneumococcal 2020-01-11 Completed [facility] Polysaccharide, 00:00:00 [facility] PPSV23 (PNEUMOVAX) [facility] Vaccine 2020-01-11 Completed [facility] Recombinant 00:00:00 [facility] Pneumococcal 2020-01-11 Completed [facility] Polysaccharide, 00:00:00 [facility] PPSV23 (PNEUMOVAX) [facility] Vaccine 2020-01-11 Completed [facility] Recombinant 00:00:00 [facility] Pneumococcal 2020-01-11 Completed [facility] Polysaccharide, 00:00:00 [facility] PPSV23 (PNEUMOVAX) [facility] Vaccine 2020-01-11 Completed [facility] Recombinant 00:00:00 [facility] Pneumococcal 2020-01-11 Completed [facility] Polysaccharide, 00:00:00 [facility] PPSV23 (PNEUMOVAX) [facility] Vaccine 2020-01-11 Completed [facility] Recombinant 00:00:00 [facility] Pneumococcal 2020-01-11 Completed [facility] Polysaccharide, 00:00:00 [facility] PPSV23 (PNEUMOVAX) [facility] Vaccine 2020-01-11 Completed [facility] Recombinant 00:00:00 [facility] Pneumococcal 2020-01-11 Completed [facility] Polysaccharide, 00:00:00 [facility] PPSV23 (PNEUMOVAX) [facility] Vaccine 2020-01-11 Completed [facility] Recombinant 00:00:00 [facility] Pneumococcal 2020-01-11 Completed [facility] Polysaccharide, 00:00:00 [facility] PPSV23 (PNEUMOVAX) [facility] Vaccine 2020-01-11 Completed [facility] Recombinant 00:00:00 [facility] Pneumococcal 2020-01-11 Completed [facility] Polysaccharide, 00:00:00 [facility] PPSV23 (PNEUMOVAX) [facility] Vaccine 2020-01-11 Completed [facility] Recombinant 00:00:00 [facility] Pneumococcal 2020-01-11 Completed [facility] Polysaccharide, 00:00:00 [facility] PPSV23 (PNEUMOVAX) [facility] Vaccine 2020-01-11 Completed [facility] Recombinant 00:00:00 [facility] Pneumococcal 2020-01-11 Completed [facility] Polysaccharide, 00:00:00 [facility] PPSV23 (PNEUMOVAX) [facility] Vaccine 2020-01-11 Completed [facility] Recombinant 00:00:00 [facility] Pneumococcal 2020-01-11 Completed [facility] f Polysaccharide, 00:00:00 [facility] ical PPSV23 (PNEUMOVAX) [place] [facility] Vaccine 2020-01-11 Completed [facility] Recombinant 00:00:00 [facility] Pneumococcal 2020-01-11 Completed [facility] Polysaccharide, 00:00:00 [facility] PPSV23 (PNEUMOVAX) [facility] Vaccine 2020-01-11 Completed [facility] Recombinant 00:00:00 [facility] Pneumococcal 2020-01-11 Completed [facility] f Polysaccharide, 00:00:00 [facility] PPSV23 (PNEUMOVAX) [facility] Vaccine 2020-01-11 Completed [facility] Recombinant 00:00:00 [facility] Pneumococcal 2020-01-11 Completed [facility] f Polysaccharide, 00:00:00 [facility] PPSV23 (PNEUMOVAX) [facility] Vaccine 2020-01-11 Completed [facility] Recombinant 00:00:00 [facility] Pneumococcal 2020-01-11 Completed [facility] Polysaccharide, 00:00:00 [facility] PPSV23 (PNEUMOVAX) [facility] Vaccine 2020-01-11 Completed [facility] Recombinant 00:00:00 [facility] Pneumococcal 2020-01-11 Completed [facility] Polysaccharide, 00:00:00 [facility] PPSV23 (PNEUMOVAX) [facility] Vaccine 2020-01-11 Completed [facility] Recombinant 00:00:00 [facility] Pneumococcal 2020-01-11 Completed [facility] f Polysaccharide, 00:00:00 [facility] PPSV23 (PNEUMOVAX) [facility] Vaccine 2020-01-11 Completed [facility] Recombinant 00:00:00 [facility] Pneumococcal 2020-01-11 Completed [facility] f Polysaccharide, 00:00:00 [facility] PPSV23 (PNEUMOVAX) [facility] Zoster Vaccine 2020-01-11 Completed [facility] Recombinant 00:00:00 [facility] Pneumococcal 2020-01-11 Completed [facility] f Polysaccharide, 00:00:00 [facility] PPSV23 (PNEUMOVAX) [facility] Vaccine 2020-01-11 Completed [facility] Recombinant 00:00:00 [facility] Pneumococcal 2020-01-11 Completed [facility] f Polysaccharide, 00:00:00 [facility] PPSV23 (PNEUMOVAX) [facility] Vaccine 2020-01-11 Completed [facility] Recombinant 00:00:00 [facility] Pneumococcal 2020-01-11 Completed [facility] Polysaccharide, 00:00:00 [facility] PPSV23 (PNEUMOVAX) [facility] Vaccine 2020-01-11 Completed [facility] Recombinant 00:00:00 [facility] Pneumococcal 2020-01-11 Completed [facility] f Polysaccharide, 00:00:00 [facility] PPSV23 (PNEUMOVAX) [facility] Vaccine 2020-01-11 Completed [facility] Recombinant 00:00:00 [facility] Pneumococcal 2020-01-11 Completed [facility] f Polysaccharide, 00:00:00 [facility] PPSV23 (PNEUMOVAX) [facility] Vaccine 2020-01-11 Completed [facility] Recombinant 00:00:00 [facility] Pneumococcal 2020-01-11 Completed [facility] f Polysaccharide, 00:00:00 [facility] PPSV23 (PNEUMOVAX) [facility] Vaccine 2020-01-11 Completed [facility] Recombinant 00:00:00 [facility] Pneumococcal 2020-01-11 Completed [facility] f Polysaccharide, 00:00:00 [facility] PPSV23 (PNEUMOVAX) [facility] Vaccine 2020-01-11 Completed [facility] Recombinant 00:00:00 [facility] Pneumococcal 2020-01-11 Completed [facility] Polysaccharide, 00:00:00 [facility] PPSV23 (PNEUMOVAX) [facility] Vaccine 2020-01-11 Completed [facility] Recombinant 00:00:00 [facility] Influenza Virus 2020-01-10 Completed [facility]ine [facility] .5 mL 00:00:00 [facility] Influenza Virus 2020-01-10 Completed [facility]ine [facility] .5 mL 00:00:00 [facility] Influenza Virus 2020-01-10 Completed [facility]ine [facility] .5 mL 00:00:00 [facility] Influenza Virus 2020-01-10 Completed [facility] Vaccine [facility] .5 mL 00:00:00 [facility] Influenza Virus 2020-01-10 Completed [facility]ine [facility] .5 mL 00:00:00 [facility] Influenza Virus 2020-01-10 Completed [facility] Vaccine [facility] .5 mL 00:00:00 [facility] Influenza Virus 2020-01-10 Completed [facility] Vaccine [facility] .5 mL 00:00:00 [facility] Influenza Virus 2020-01-10 Completed [facility]ine [facility] .5 mL 00:00:00 [facility] Influenza Virus 2020-01-10 Completed [facility]ine [facility] .5 mL 00:00:00 [facility] Influenza Virus 2020-01-10 Completed [facility] .5 mL 00:00:00 [facility] Influenza Virus 2020-01-10 Completed [facility] .5 mL 00:00:00 [facility] Influenza Virus 2020-01-10 Completed [facility]ine [facility] .5 mL 00:00:00 [facility] Influenza Virus 2020-01-10 Completed [facility] .5 mL 00:00:00 [facility] Influenza Virus 2020-01-10 Completed [facility] .5 mL 00:00:00 [facility] Influenza Virus 2020-01-10 Completed [facility]ine [facility] .5 mL 00:00:00 [facility] Influenza Virus 2020-01-10 Completed [facility]ine [facility] .5 mL 00:00:00 [facility] Influenza Virus 2020-01-10 Completed [facility]ine [facility] .5 mL 00:00:00 [facility] Influenza Virus 2020-01-10 Completed [facility] .5 mL 00:00:00 [facility] Influenza Virus 2020-01-10 Completed [facility]ine [facility] .5 mL 00:00:00 [facility] Influenza Virus 2020-01-10 Completed [facility]ine [facility] .5 mL 00:00:00 [facility] Influenza Virus 2020-01-10 Completed [facility]ine [facility] .5 mL 00:00:00 [facility] Influenza Virus 2020-01-10 Completed [facility] .5 mL 00:00:00 [facility] Influenza Virus 2020-01-10 Completed [facility] .5 mL 00:00:00 [facility] Influenza Virus 2020-01-10 Completed [facility] .5 mL 00:00:00 [facility] Influenza Virus 2020-01-10 Completed [facility] .5 mL 00:00:00 [facility] Influenza Virus 2020-01-10 Completed [facility] .5 mL 00:00:00 [facility] Influenza Virus 2020-01-10 Completed [facility] .5 mL 00:00:00 [facility] Influenza Virus 2020-01-10 Completed [facility]ine [facility] .5 mL 00:00:00 [facility] Influenza Virus 2020-01-10 Completed [facility] .5 mL 00:00:00 [facility] Influenza Virus 2020-01-10 Completed [facility]ine [facility] .5 mL 00:00:00 [facility] Influenza Virus 2020-01-10 Completed [facility]ine [facility] .5 mL 00:00:00 [facility] Influenza Virus 2020-01-10 Completed [facility]ine [facility] .5 mL 00:00:00 [facility] Influenza Virus 2020-01-10 Completed [facility]ine [facility] .5 mL 00:00:00 [facility] Influenza Virus 2020-01-10 Completed [facility] .5 mL 00:00:00 [facility] Influenza Virus 2020-01-10 Completed [facility] .5 mL 00:00:00 [facility] Influenza Virus 2020-01-10 Completed [facility] .5 mL 00:00:00 [facility] Influenza Virus 2020-01-10 Completed [facility] .5 mL 00:00:00 [facility] Influenza Virus 2020-01-10 Completed [facility] .5 mL 00:00:00 [facility] Influenza Virus 2020-01-10 Completed [facility]ine [facility] .5 mL 00:00:00 [facility] Influenza Virus 2020-01-10 Completed [facility] .5 mL 00:00:00 [facility] Influenza Virus 2020-01-10 Completed [facility] .5 mL 00:00:00 [facility] Influenza Virus 2020-01-10 Completed [facility]ine [facility] .5 mL 00:00:00 [facility] Influenza Virus 2020-01-10 Completed [facility] .5 mL 00:00:00 [facility] Influenza Virus 2020-01-10 Completed [facility] .5 mL 00:00:00 [facility] Influenza Virus 2020-01-10 Completed [facility] .5 mL 00:00:00 [facility] Influenza Virus 2020-01-10 Completed [facility]ine [facility] .5 mL 00:00:00 [facility] Influenza Virus 2020-01-10 Completed [facility] .5 mL 00:00:00 [facility] Influenza Virus 2020-01-10 Completed [facility] .5 mL 00:00:00 [facility] Influenza Virus 2020-01-10 Completed [facility] .5 mL 00:00:00 [facility] Influenza Virus 2020-01-10 Completed [facility] .5 mL 00:00:00 [facility] Influenza Virus 2020-01-10 Completed [facility] .5 mL 00:00:00 [facility] Influenza Virus 2020-01-10 Completed [facility] .5 mL 00:00:00 [facility] Influenza Virus 2020-01-10 Completed [facility] .5 mL 00:00:00 [facility] Influenza Virus 2020-01-10 Completed [facility] .5 mL 00:00:00 [facility] Influenza Virus 2020-01-10 Completed [facility] .5 mL 00:00:00 [facility] Influenza Virus 2020-01-10 Completed [facility] .5 mL 00:00:00 [facility] Influenza Virus 2020-01-10 Completed [facility] .5 mL 00:00:00 [facility] Influenza Virus 2020-01-10 Completed [facility] .5 mL 00:00:00 [facility] Influenza Virus 2020-01-10 Completed [facility] .5 mL 00:00:00 [facility] Influenza Virus 2020-01-10 Completed [facility] .5 mL 00:00:00 [facility] Influenza Virus 2020-01-10 Completed [facility] .5 mL 00:00:00 [facility] Influenza Virus 2020-01-10 Completed [facility] .5 mL 00:00:00 [facility] Influenza Virus 2020-01-10 Completed [facility] .5 mL 00:00:00 [facility] Influenza Virus 2020-01-10 Completed [facility] .5 mL 00:00:00 [facility] Influenza Virus 2020-01-10 Completed [facility] .5 mL 00:00:00 [facility] Influenza Virus 2020-01-10 Completed [facility] .5 mL 00:00:00 [facility] TDAP 2014-10-31 Completed University of 00:00:00 [facility] TDAP 2014-10-31 Completed University of 00:00:00 [facility] TDAP 2014-10-31 Completed University of 00:00:00 [facility] TDAP 2014-10-31 Completed University of 00:00:00 [facility] TDAP 2014-10-31 Completed University of 00:00:00 [facility] TDAP 2014-10-31 Completed University of 00:00:00 [facility] TDAP 2014-10-31 Completed University of 00:00:00 [facility] TDAP 2014-10-31 Completed University of 00:00:00 [facility] TDAP 2014-10-31 Completed University of 00:00:00 [facility] TDAP 2014-10-31 Completed University of 00:00:00 [facility] TDAP 2014-10-31 Completed University of 00:00:00 [facility] TDAP 2014-10-31 Completed University of 00:00:00 [facility] TDAP 2014-10-31 Completed University of 00:00:00 [facility] TDAP 2014-10-31 Completed University of 00:00:00 [facility] TDAP 2014-10-31 Completed University of 00:00:00 [facility] TDAP 2014-10-31 Completed University of 00:00:00 [facility] TDAP 2014-10-31 Completed University of 00:00:00 [facility] TDAP 2014-10-31 Completed University of 00:00:00 [facility] TDAP 2014-10-31 Completed University of 00:00:00 [facility] TDAP 2014-10-31 Completed University of 00:00:00 [facility] TDAP 2014-10-31 Completed University of 00:00:00 [facility] TDAP 2014-10-31 Completed University of 00:00:00 [facility] TDAP 2014-10-31 Completed University of 00:00:00 [facility] TDAP 2014-10-31 Completed University of 00:00:00 [facility] TDAP 2014-10-31 Completed University of 00:00:00 [facility] TDAP 2014-10-31 Completed University of 00:00:00 [facility] TDAP 2014-10-31 Completed University of 00:00:00 [facility] Tdap 2014-10-31 Completed University of 00:00:00 [facility] TDAP 2014-10-31 Completed University of 00:00:00 [facility] TDAP 2014-10-31 Completed University of 00:00:00 [facility] Tdap 2014-10-31 Completed University of 00:00:00 [facility] Tdap 2014-10-31 Completed University of 00:00:00 [facility] Tdap 2014-10-31 Completed University of 00:00:00 [facility] Tdap 2014-10-31 Completed University of 00:00:00 [facility] Tdap 2014-10-31 Completed University of 00:00:00 [facility] Tdap 2014-10-31 Completed University of 00:00:00 [facility] Tdap 2014-10-31 Completed University of 00:00:00 [facility] Tdap 2014-10-31 Completed University of 00:00:00 [facility] Tdap 2014-10-31 Completed University of 00:00:00 [facility] Tdap 2014-10-31 Completed University of 00:00:00 [facility] Tdap 2014-10-31 Completed University of 00:00:00 [facility] Tdap 2014-10-31 Completed University of 00:00:00 [facility] Tdap 2014-10-31 Completed University of 00:00:00 [facility] TDAP 2014-10-31 Completed University of 00:00:00 [facility] TDAP 2014-10-31 Completed University of 00:00:00 [facility] TDAP 2014-10-31 Completed University of 00:00:00 [facility] TDAP 2014-10-31 Completed University of 00:00:00 [facility] TDAP 2014-10-31 Completed University of 00:00:00 [facility] TDAP 2014-10-31 Completed University of 00:00:00 [facility] TDAP 2014-10-31 Completed University of 00:00:00 [facility] TDAP 2014-10-31 Completed University of 00:00:00 [facility] TDAP 2014-10-31 Completed University of 00:00:00 [facility] TDAP 2014-10-31 Completed University of 00:00:00 [facility] TDAP 2014-10-31 Completed University of 00:00:00 [facility] TDAP 2014-10-31 Completed University of 00:00:00 [facility] TDAP 2014-10-31 Completed University of 00:00:00 [facility] TDAP 2014-10-31 Completed University of 00:00:00 [facility] TDAP 2014-10-31 Completed University of 00:00:00 [facility] TDAP 2014-10-31 Completed University of 00:00:00 [facility] TDAP 2014-10-31 Completed University of 00:00:00 [facility] TDAP 2014-10-31 Completed University of 00:00:00 [facility] TDAP 2014-10-31 Completed University of 00:00:00 [facility] TDAP 2014-10-31 Completed University of 00:00:00 [facility] TDAP 2014-10-31 Completed University of 00:00:00 [facility] TDAP 2014-10-31 Completed University of 00:00:00 [facility] TDAP 2014-10-31 Completed University of 00:00:00 [facility] Vital Signs Vital Name Observation Time Observation Value Comments Source Systolic blood 2021-11-01 17:16:00 138 mm[Hg] Univer sity of pressure [facility] Diastolic blood 2021-11-01 17:16:00 69 mm[Hg] Unive rsity of pressure [facility] Heart rate 2021-11-01 17:16:00 97 /min [facility] Body temperature 2021-11-01 17:16:00 36.11 Carolann Univ ersity of [facility] Respiratory rate 2021-11-01 17:16:00 16 /min Univ ersity of [facility] Oxygen saturation in 2021-11-01 17:16:00 95 /min University of Arterial blood by [place] [employer] [facility] Body weight 2021-11-01 10:12:00 160.828 kg [facility] BMI 2021-11-01 10:12:00 60.86 kg/m2 [facility] Body height 2021-10-29 21:09:00 162.6 cm [facility] Systolic blood 2021-10-26 08:00:00 160 mm[Hg] Univer sity of pressure [facility] Diastolic blood 2021-10-26 08:00:00 74 mm[Hg] Unive rsity of pressure [facility] Heart rate 2021-10-26 08:00:00 86 /min [facility] [place] Respiratory rate 2021-10-26 08:00:00 20 /min Univ ersity of [facility] Oxygen saturation in 2021-10-26 08:00:00 95 /min University of Arterial blood by [employer] [facility] Branch Body temperature 2021-10-26 04:03:00 37.61 Carolann Univ ersity of [facility] Body height 2021-10-26 04:03:00 162.6 cm Universi ty of [facility] Body weight 2021-10-26 04:03:00 153.316 kg [facility]i ty of [facility] BMI 2021-10-26 04:03:00 58.02 kg/m2 [facility] Body weight 2021-07-31 16:17:00 151.048 kg [facility] BMI 2021-07-31 16:17:00 60.91 kg/m2 [facility] Systolic blood 2021-06-18 15:36:00 125 mm[Hg] Univer sity of pressure [facility] Diastolic blood 2021-06-18 15:36:00 71 mm[Hg] Unive rsity of pressure [facility] Heart rate 2021-06-18 15:36:00 68 /min Universi ty of [facility] Body temperature 2021-06-18 15:36:00 36.39 Carolann Univ ersity of [facility] Respiratory rate 2021-06-18 15:36:00 24 /min Univ ersity of [facility] Body height 2021-06-18 15:36:00 157.5 cm [facility] Body weight 2021-06-18 15:36:00 151.229 kg [facility] BMI 2021-06-18 15:36:00 60.98 kg/m2 [facility] Systolic blood 2021-05-28 18:43:00 127 mm[Hg] Univer sity of pressure [facility] Diastolic blood 2021-05-28 18:43:00 73 mm[Hg] Unive rsity of pressure [facility] Heart rate 2021-05-28 18:43:00 66 /min [facility]i ty of [facility] Body temperature 2021-05-28 18:43:00 35.83 Carolann Univ ersity of [facility] Respiratory rate 2021-05-28 18:43:00 20 /min Univ ersity of [facility] Body height 2021-05-28 18:43:00 157.5 cm [facility]i [facility] of [facility] Body weight 2021-05-28 18:43:00 153.497 kg [facility] BMI 2021-05-28 18:43:00 61.89 kg/m2 [facility] Systolic blood 2021-05-26 14:42:00 150 mm[Hg] Univer sity of pressure [facility] Diastolic blood 2021-05-26 14:42:00 73 mm[Hg] Unive rsity of pressure [facility] Heart rate 2021-05-26 14:42:00 77 /min Universi ty of [facility] Body temperature 2021-05-26 14:42:00 37.78 Carolann Univ ersity of [facility] Respiratory rate 2021-05-26 14:42:00 18 /min Univ ersity of [facility] Body weight 2021-05-26 14:42:00 152.862 kg [facility]i [facility] of [facility] BMI 2021-05-26 14:42:00 57.85 kg/m2 [facility] Oxygen saturation in 2021-05-26 14:42:00 98 /min University of Arterial blood by [employer] [facility] oxim[facility] Branch Body temperature 2021-04-06 17:33:00 35.78 Carolann Univ ersity of [facility] Body weight 2021-04-06 17:33:00 152.862 kg Universi ty of [facility] BMI 2021-04-06 17:33:00 57.85 kg/m2 [facility] ty of [facility] Systolic blood 2021-02-23 19:02:00 125 mm[Hg] Univer sity of pressure [facility] Diastolic blood 2021-02-23 19:02:00 74 mm[Hg] Unive rsity of pressure [facility] Heart rate 2021-02-23 18:53:00 71 /min Universi ty of [facility] Respiratory rate 2021-02-23 18:53:00 19 /min Univ ersity of [facility] Body height 2021-02-23 18:53:00 162.6 cm [facility]i ty of [facility] Body weight 2021-02-23 18:53:00 153.497 kg Universi ty of [facility] BMI 2021-02-23 18:53:00 58.09 kg/m2 Univers[facility] ty of [facility] Oxygen saturation in 2021-02-23 18:53:00 96 /min [facility]ial blood by [place] [facility] Systolic blood 2021-01-01 15:37:00 156 mm[Hg] Univer sity of pressure [facility] Diastolic blood 2021-01-01 15:37:00 85 mm[Hg] Unive rsity of pressure [facility] Heart rate 2021-01-01 15:37:00 66 /min [facility]i ty [facility] [place] [facility] [place] Body temperature 2021-01-01 15:37:00 36 Carolann Univ ersity of [facility] Respiratory rate 2021-01-01 15:37:00 20 /min Univ ersity of [facility] Body height 2021-01-01 15:37:00 162.6 cm [facility]i ty [facility] [place] [facility] [place] Body weight 2021-01-01 15:37:00 153.588 kg Universi ty of [facility] BMI 2021-01-01 15:37:00 58.12 kg/m2 Universi ty of [facility] Oxygen saturation in 2021-01-01 15:37:00 98 /min University of Arterial blood by [facility] Pulse oximetry Branch Body weight 2020-10-08 17:11:00 153.407 kg Universi ty of [facility] BMI 2020-10-08 17:11:00 61.86 kg/m2 Universi ty of [facility] Systolic blood 2020-09-18 14:20:00 129 mm[Hg] Univer sity of pressure [facility] Diastolic blood 2020-09-18 14:20:00 65 mm[Hg] Unive rsity of pressure [facility] Heart rate 2020-09-18 14:20:00 60 /min Universi ty of [facility] Body temperature 2020-09-18 14:20:00 35.94 Carolann Univ ers[facility] Respiratory rate 2020-09-18 14:20:00 20 /min Univ ersity of [facility] Body height 2020-09-18 14:20:00 157.5 cm [facility]i ty [facility] Body weight 2020-09-18 14:20:00 148.326 kg [facility]i ty [facility] BMI 2020-09-18 14:20:00 59.81 kg/m2 [facility]i ty [facility] Systolic blood 2020-06-26 14:30:00 118 mm[Hg] Univer sity of pressure [facility] Diastolic blood 2020-06-26 14:30:00 68 mm[Hg] Unive rsity of pressure [place] [facility] [place] Heart rate 2020-06-26 14:30:00 67 /min Universi ty of [facility] Body temperature 2020-06-26 14:30:00 36.33 Carolann Univ [facility] Respiratory rate 2020-06-26 14:30:00 20 /min Univ ersity of [facility] Body height 2020-06-26 14:30:00 157.5 cm Universi ty of [facility] Body weight 2020-06-26 14:30:00 146.784 kg Universi ty of [facility] BMI 2020-06-26 14:30:00 59.19 kg/m2 Universi ty of [facility] Oxygen saturation in 2020-06-26 14:30:00 97 /min University Arterial blood by [facility] Pulse oximetry Branch Systolic blood 2020-03-17 15:00:00 118 mm[Hg] Univer sity of pressure [facility] Diastolic blood 2020-03-17 15:00:00 72 mm[Hg] Unive rsity of pressure [facility] Heart rate 2020-03-17 15:00:00 68 /min [facility]i ty [facility] [place] [facility] [place] Body height 2020-03-17 15:00:00 157.5 cm [facility] ty [facility] [place] Body weight 2020-03-17 15:00:00 144.697 kg [facility]i ty of [facility] BMI 2020-03-17 15:00:00 58.35 kg/m2 Universi ty of [facility] Systolic blood 2020-01-10 16:34:00 124 mm[Hg] Univer sity of pressure [facility] Diastolic blood 2020-01-10 16:34:00 88 mm[Hg] Unive rsity of pressure [facility] Heart rate 2020-01-10 16:34:00 59 /min Universi ty of [facility] Body temperature 2020-01-10 16:34:00 36.28 Carolann Univ ersity of [facility] Respiratory rate 2020-01-10 16:34:00 24 /min Univ ersity of [facility] Body height 2020-01-10 16:34:00 157.5 cm Universi ty of [facility] Body weight 2020-01-10 16:34:00 145.423 kg Universi ty of [facility] BMI 2020-01-10 16:34:00 58.64 kg/m2 [facility] [place] Procedures Procedure Date / Time Performing Clinician Source Performed LIPASE 2021-11-01 10:29:00 Concepcion [facility] BASIC METABOLIC PANEL 2021-11-01 10:29[facility], CO2, GLUCOSE, Medica l Branch BUN, CREATININE, CA) CBC WITH DIFF 2021-11-01 10:29:00 [facility] 2021-10-31 10:35:00 Concepcion [facility] BASIC METABOLIC PANEL 2021-10-31 10:35:00 jose [facility] (NA, K, CL, CO2, GLUCOSE, Medica l Branch BUN, CREATININE, CA) CBC WITH DIFF 2021-10-31 10:35:00 [facility] 2021-10-30 10:43:00 Pancho [facility] BASIC METABOLIC PANEL 2021-10-30 10:43:00 Pancho [facility] (NA, K, CL, CO2, GLUCOSE, Medica l Branch BUN, CREATININE, CA) LIPID PANEL ([id number])(TOTAL 2021-10-30 10:43:00 Cheli Deleon [facility] CHOLESTEROL, Medical Branch TRIGLYCERIDES, HDL) CBC WITH DIFF 2021-10-30 10:43:00 Pancho [facility] GLYCOSYLATED HEMOGLOBIN 2021-10-30 10:43:00 Pancho [facility] (A1C) Medical Branch TROPONIN I 2021-10-30 04:32:00 Jerardo Sharma [facility] US ABDOMEN LIMITED 2021-10-30 03:44:00 Jerardo Sharma [facility] CT ABDOMEN PELVIS W 2021-10-29 16:41:24 Josue Lutz [facility] CONTRAST [facility] CT CHEST PULMONARY 2021-10-29 16:41:24 Josue Lutz [facility] ANGIOGRAM Medical Branch LIPASE 2021-10-29 15:30:00 Lutz, Josue [facility] MAGNESIUM 2021-10-29 15:30:00 Josue Lutz [facility] TROPONIN I 2021-10-29 15:30:00 Josue Lutz [facility] THYROID STIMULATING 2021-10-29 15:30:00 Cheli Deleon [facility] HORMONE [facility] COMP. METABOLIC PANEL 2021-10-29 15:30:00 Josue Lutz [facility] ([id number]) [facility] POCT TEST 2021-10-29 14:58:00 Josue Lutz [facility] URINALYSIS 2021-10-29 14:57:00 Josue Lutz [facility] LACTIC ACID WHOLE BLOOD 2021-10-29 14:57:00 Josue Lutz [facility] COVID-19 (ID NOW RAPID 2021-10-29 14:57:00 Josue Lutz [facility] TESTING) Medical Branch LAB ONLY COVID 2021-10-29 14:57:00 Josue Lutz [facility] HB ECG ROUTINE & RHYTHM 2021-10-29 14:56:46 Josue Lutz [facility] CBC WITH DIFF 2021-10-29 14:56:00 Josue Lutz [facility] PROTHROMBIN TIME / INR 2021-10-29 14:56:00 Josue Lutz [facility] ACTIVATED PARTIAL 2021-10-29 14:56:00 Josue Lutz [facility] 2021-10-29 14:00:26 Doctor Unassigned, [facility] DIAGNOSIS AND TREATMENT [place] [facility] TROPONIN I 2021-10-26 06:01:00 Ezra Milligan [facility] URINALYSIS 2021-10-26 05:52:00 Ezra Milligan [facility] XR CHEST 1 VW 2021-10-26 04:44:00 Ezra Milligan [facility] LIPASE 2021-10-26 04:30:00 Ezra Milligan [facility] TROPONIN I 2021-10-26 04:30:00 Ezra Milligan [facility] COMP. METABOLIC PANEL 2021-10-26 04:30:00 Ezra Milligan [facility] ([id number]) [facility] [place] CBC WITH DIFF 2021-10-26 04:30:00 Ezra Milligan [facility] PROTHROMBIN TIME / INR 2021-10-26 04:30:00 Ezra Milligan [facility] ACTIVATED PARTIAL 2021-10-26 04:30:00 Ezra Milligan [facility] THRMPLAS GAUTAM [facility] N-TERMINAL PRO-BNP 2021-10-26 04:30:00 Ezra Milligan [facility] NOTICE OF PRIVACY 2021-10-26 03:57:43 Doctor Fernandez, [facility] PRACTICES [place] [facility] CONSENT/REFUSAL FOR 2021-10-26 03:53:29 Doctor Fernandez [facility] DIAGNOSIS AND TREATMENT [place] [facility] [place] MEDICATION CORRESPONDENCE 2021-08-14 05:01:00 Doctor Presley, [facility] [place] [facility] CONSENT/REFUSAL FOR 2021-05-26 14:37:40 Doctor Presley [facility] DIAGNOSIS AND TREATMENT [place] [facility] [place] VACCINATIONS - CONSENTS, 2021-04-13 05:01:00 Doctor Fernandez [facility] ELIGIBILITY, HISTORY [place] [facility] SCANNED LAB RESULTS 2021-01-01 06:01:00 Doctor Presley [facility] [place] [facility] [place] XR LUMBAR SPINE 2 VW 2020-10-27 16:22:58 Cem Britt [facility] [place] XR KNEE 3 VW LEFT 2020-10-27 16:22:26 Cem Britt [facility] [place] XR KNEE 3 VW RIGHT 2020-10-06 18:14:49 Ellie Kuo [facility] ASSIGNMENT OF BENEFITS 2020-10-06 17:23:48 Doctor Fernandez [facility] [place] [facility] FLU VACC ([id number]), 6+ 2020-09-18 14:44:43 Ellie Kuo [facility] MONTHS, IM, QUAD Medical Branch SCANNED LAB RESULTS 2020-09-18 05:01:00 [facility] [place] [facility] ECHO ROUTINE W/DOPPLER 2020-03-17 14:54:06 [facility] EXTERNAL PROVIDER RECORDS 2020-02-12 05:01:00 Doctor Fernandez, [facility] [place] [facility] FLU VACC ([id number]), 6+ 2020-01-10 17:18:02 Ellie Kuo [facility] MONTHS, IM, [facility] EMERGENCY SERVICES 2020-01-10 06:01:00 Doctor Fernandez, [facility] AGREEMENTS AND [place] [facility] AUTHORIZATIONS Encounters Start End Encounter Admission Attending Care Care Encounter Source Date/Time Date/Time Type Type Clinicians Facility Department ID 2021-09-21 Emergency [facility] [id number] Univers 06:12:39 [facility] 2022-02-23 2022-02-23 Outpatient R SIVAKUMAR, [facility] [id number] Univers 10:20:00 10:20:00 DOROTA [id number] joseyy o [facility] 2021-12-14 2021-12-14 Outpatient R SIVAKUMAR, [facility] [id number] Univers 14:20:00 14:20:00 DOROTA [id number] ity o [facility] 2021-12-14 2021-12-14 Outpatient R SIVAKUMAR, [facility] [id number] Univers 14:20:00 14:20:00 DOROTA dowling o [facility] 2021-11-23 2021-11-23 Outpatient Alicia [facility] [id number] Univers 12:40:00 12:40:00 FRANK [id number] [facility] 2021-11-23 2021-11-23 Outpatient Alicia [facility] [id number] Univers 12:40:00 12:40:00 FRANK [facility] 2021-11-18 2021-11-18 Outpatient R SIVAKUMAR, [facility] [id number] Univers 11:00:00 11:00:00 DOROTA [id number] it o [facility] 2021-11-12 2021-11-12 [id number] Univers 14:15:00 14:15:00 CHUCK [id number] ity of [facility] 2021-11-03 2021-11-03 Transition MOI Gardner [id number] Univers 00:00:00 00:00:00 of Care Alison MITCHELL [id number] [id number] [id number] [facility] 403 Branch 2021-10-29 2021-11-01 [facility] LENA [id number] Univers 08:10:00 15:55:00 JERARDO salmon [facility] 2021-10-29 2021-11-01 [facility] Bolivar Josue [facility] [id number] Univers 08:10:00 15:55:00 Encounter Jerardo Sharma [id number] [facility] [id number] [facility] [id number] [address] 2021-10-25 2021-10-26 Emergency X [facility] ERT [id number] Univers 22:07:00 02:04:00 EZRA ity [facility] 2021-10-25 2021-10-26 Emergency [facility] [id number] Univers 22:07:00 02:04:00 Ezra CHAMPION [id number] ity of [place] [id number] [place] [facility] [id number] [place] [id number] [place] 2021-10-02 2021-10-02 Telephone Matilde PRATER [id number] Univers 00:00:00 00:00:00 , Consuelo MITCHELL [id number] [id number] [id number] [place] [id number] [place] 2021-08-14 2021-08-14 Orders Doctor WADE [id number] Univers 00:00:00 00:00:00 Only Unassigned, DAJUAN [id number] ity of [place] [facility] [id number] Jordy as [id number] [facility] 009 [place] 2021-07-31 2021-07-31 Office [facility] [id number] Univers 11:02:52 11:19:13 Visit Frank HINKLE [id number] [id number] [id number] [address] 2021-07-31 2021-07-31 Outpatient Alicia [facility] [id number] Univers 11:10:00 11:10:00 FRANK [id number] [facility] 2021-07-31 2021-07-31 Outpatient Alicia [facility] [id number] Univers 11:10:00 11:10:00 FRANK [facility] 2021-07-24 2021-07-24 Outpatient Alicia [facility] [id number] -20 Univers 10:30:00 10:30:00 RADHA [id number] [facility] 2021-07-24 2021-07-24 Outpatient Alicia [facility] [id number] Univers 10:30:00 10:30:00 RADHA [facility] 2021-07-17 2021-07-17 Outpatient Alicia [facility] [id number] -[id number] Univers 08:50:00 08:50:00 FRANK [id number] [facility] 2021-06-18 2021-06-18 Office Care, Cory CONNELLY 1.2.840 .114 [id number] Univers 10:33:23 11:03:23 Visit Ellie Kuo [facility] 350.1.13.10 [place] [id number] [facility] [address] 2021-06-18 2021-06-18 Outpatient [facility] [id number] -[id number] Univers 10:30:00 10:30:00 [id number] [facility] 2021-06-18 2021-06-18 Outpatient R [facility] [id number] Univers 10:30:00 10:30:00 ity of [facility] 2021-06-15 2021-06-15 Hospital Ellie Kuo [facility] 1.2.840.114 [id number] Univers 10:52:14 23:59:00 Encounter Franny 350.1.13.10 [place] [phone] [facility] [address] 2021-06-15 2021-06-15 Outpatient R [facility] [id number] Univers 11:20:00 11:20:00 [id number] ity [facility] 2021-06-15 2021-06-15 Outpatient R [facility] [id number] Univers 00:00:00 00:00:00 ity [facility] 2021-06-15 2021-06-15 Telephone Ellie Kuo 1.2.840.114 [id number] Univers 00:00:00 00:00:00 [facility] 350.1.13.10 [place] [id number] [facility] [address] 2021-05-28 2021-05-28 Office Care, Cory CONNELLY 1.2.840 .114 [id number] Univers 13:37:06 14:07:06 Visit Ellie Kuo [facility] 350.1.13.10 ity of [facility] [place] [id number] [facility] [address] 2021-05-28 2021-05-28 Outpatient [facility] [id number] -[id number] Univers 13:30:00 13:30:00 [id number] ity [facility] 2021-05-28 2021-05-28 Outpatient R [facility] [id number] Univers 13:30:00 13:30:00 ity [facility] 2021-05-26 2021-05-26 [facility] 1.2.494.412 [id number] Univers 09:45:00 10:29:00 Josue Champion 350.1.13.10 i [place] [phone] [facility] [address] 2021-04-21 2021-04-21 Telephone Ellie Kuo MARICEL 1.2.840.114 [id number] Univers 00:00:00 00:00:00 [facility] 350.1.13.10 it [place] [id number] [facility] [address] 2021-04-15 2021-04-15 Telephone Ellie Kuo MARICEL 1.2.840.114 [id number] Univers 00:00:00 00:00:00 [facility] 350.1.13.10 it [place] [id number] [facility] [address] 2021-04-13 2021-04-13 Orders Doctor WADE 1.2.840.114 [id number] Univers 00:00:00 00:00:00 Only Unassigned, DAJUAN 350.1.13.10 ity of [place] [facility] 4.2.7.2.686 [place] as [phone] [facility] [address] 2021-04-06 2021-04-06 Office Chano [facility] 1.2.840.114 [id number] Univers 11:57:20 13:00:17 Visit Frank HINKLE 350.1.13.10 ity of CARE 4.2.7.2.686 [facility] [place] AT [phone] [address] 2021-04-06 2021-04-06 Outpatient Alicia [facility] [id number] -[id number] Univers 12:30:00 12:30:00 FRANK [id number] ity [facility] 2021-04-06 2021-04-06 Outpatient Alicia [facility] [id number] Univers 12:30:00 12:30:00 [facility] 2021-03-[facility] 2021-03-23 Outpatient Alicia [facility] [id number] -[id number] Univers 15:50:00 15:50:00 FRANK [id number] [facility] 2021-03-18 2021-03-18 Refill Ellie Kuo [facility] 1.2.840.114 [id number] Univers 00:00:00 00:00:00 Y HEALTH 350.1.13.10 i ty [place] CL[place] [id number] [facility] [address] 2021-02-23 2021-02-23 Office Sivakumar, [facility] 1.2.840.114 [id number] Univers 13:39:51 14:18:57 Visit Jordanashlibrandon [place] 350.1.13.10 ity [facility] [place] [phone] [place] dical [place]al 059 [facility] 2021-02-23 2021-02-23 Outpatient SIVAKUMAR[facility] [id number] -[id number] Univers 09:20:00 09:20:00 DOROTA [id number] ity o [facility] 2021-02-23 2021-02-23 Outpatient R [facility]IVAKUMAR, [facility] [id number] Univers 09:20:00 09:20:00 DOROTA salmon [facility] 2021-02-10 2021-02-10 Telephone Ellie Kuo 1.2.840.114 [id number] Univers 00:00:00 00:00:00 [facility] 350.1.13.10 it [place] [id number] [facility] [address] 2021-01-30 2021-01-30 Outpatient Alicia [facility] [id number] -[id number] Univers 11:30:00 11:30:00 FRANK [id number] ity of [facility] 2021-01-25 2021-01-25 RefEllie Purdy [facility] 1.2.840.114 [id number] Univers 00:00:00 00:00:00 Y HEALTH 350.1.13.10 i ty [place] CL[place] [id number] [facility] [address] 2021-01-12 2021-01-12 Telephone Ellie Kuo 1.2.840.114 [id number] Univers 00:00:00 00:00:00 [facility] 350.1.13.10 it y [place] [id number] [facility] [address] MARTHA 2021-01-01 2021-01-01 Office Care, Ang Primary BRAZDUSTIN 1.2.840 .114 [id number] Univers 09:33:34 10:33:20 Visit Ellie Kuo [facility] 350.1.13.10 it[place] [id number] [facility] [address] 2021-01-01 2021-01-01 Outpatient [facility] [id number] Univers 09:30:00 09:30:00 [id number] ity of [facility] 2021-01-01 2021-01-01 Outpatient R [facility] [id number] Univers 09:30:00 09:30:00 ity [facility] 2021-01-01 2021-01-01 Orders Doctor WADE 1.2.840.114 [id number] Univers 00:00:00 00:00:00 Only Unassigned, DAJUAN 350.1.13.[address] [facility] 4.2.7.2.686 [place] [id number] [facility] [address] 2020-12-31 2020-12-31 Telephone Ellie Kuo 1.2.840.114 [id number] Univers 00:00:00 00:00:00 [facility] 350.1.13.10 it y [place] [id number] [facility] [address] 2020-12-24 2020-12-24 Outpatient R [facility] [id number] -[id number] Univers 17:20:00 17:20:00 [id number] ity [facility] 2020-12-24 2020-12-24 Outpatient R [facility] [id number] Univers 17:20:00 17:20:00 REN ity [facility] 2020-12-24 2020-12-24 Laboratory Lab, Adc Fam Pob I [facility] 1.2. 840.114 [id number] Univers 16:56:05 17:16:05 Only Omar [facility] 350.1.13.10 [place] 4.2.7.2.686 [place] Professio [phone] Me dical nal [address] [facility] 2020-12-24 2020-12-24 Letter Doctor WADE 1.2.840.114 [id number] Univers 00:00:00 00:00:00 (Out) Unassigned, DAJUAN 350.1.13.10 ity of [place] [facility] 4.2.7.2.686 [place] as [id number] [facility] [address] 2020-11-28 2020-11-28 Telephone Ellie Kuo 1.2.840.114 [id number] Univers 00:00:00 00:00:00 [facility] 350.1.13.10 it [place] [id number] [facility] [address] 2020-10-27 2020-10-27 [facility] 1.2.840.114 [id number] Univers 10:06:10 23:59:00 Encounter Frank Champion 350.1.13.10 [place] [phone] [facility] [address] 2020-10-27 2020-10-27 [facility] 1.2.840.114 [id number] Univers 10:00:00 10:05:00 Encounter Frank Champion 350.1.13.10 [place] [phone] [address] 2020-10-27 2020-10-27 Outpatient R [facility] [id number] Univers 10:00:00 10:00:00 FRANK ity [facility] 2020-10-27 2020-10-27 Outpatient R [facility] [id number] Univers 00:00:00 00:00:00 [facility] 2020-10-08 2020-10-08 Office [facility] 1.2.840.114 [id number] Univers 10:46:03 11:37:55 Visit Frank AVIL[place] 350.1.13.10 it y [place] [id number] Me dical [address] 2020-10-08 2020-10-08 Outpatient R [facility] [id number] Univers 11:00:00 11:00:00 FRANK [id number] ity of [facility] 2020-10-08 2020-10-08 Outpatient R [facility] [id number] Univers 11:00:00 11:00:00 FRANK ity of [facility] 2020-10-06 2020-10-06 [facility] 1.2.840.114 [id number] Univers 11:30:00 23:59:00 Encounter [place] 350.1.13.10 [place] [id number] [facility] [address] 2020-10-06 2020-10-06 [facility] [id number] Univers 11:30:00 11:30:00 [id number] ity of [facility] 2020-10-06 2020-10-06 Out[facility] [id number] Univers 00:00:00 00:00:00 ity of [facility] 2020-10-06 2020-10-06 [facility] [id number] Univers 00:00:00 00:00:00 ity [facility] 2020-10-06 2020-10-06 Orders Doctor OLVERA 1.2.840.114 [id number] Univers 00:00:00 00:00:00 Only Unassigned, DAJUAN 350.1.13.10 ity of [place] [facility] 4.2.7.2.686 Jordy [id number] [facility] [address] 2020-09-22 2020-09-22 Telephone Ellie Kuo MARICEL 1.2.840.114 [id number] Univers 00:00:00 00:00:00 [facility] 350.1.13.10 it y of [facility] [place] [id number] [facility] CARE - [address] MARTHA 2020-09-18 2020-09-18 Office Care, Ang Primary MARICEL 1.2.840 .114 [id number] Univers 08:57:06 09:59:36 Visit Ellie Kuo [facility] 350.1.13.10 it[place] [id number] [facility] [address] 2020-09-18 2020-09-18 Outpatient R [facility] [id number] Univers 08:30:00 08:30:00 [id number] ity of [facility] 2020-09-18 2020-09-18 Outpatient R [facility] [id number] Univers 08:30:00 08:30:00 ity of [facility] 2020-09-18 2020-09-18 Orders Doctor WADE 1.2.840.114 [id number] Univers 00:00:00 00:00:00 Only Unassigned, DAJUAN 350.1.13.10 [facility] 4.2.7.2.686 [place] as [id number] [facility] [address] 2020-06-26 2020-06-26 Office Care, Ang Primary BRAZORIA 1.2.840 .114 [id number] Univers 09:29:43 12:40:14 Visit Ellie Kuo [facility] 350.1.13.10 [place] [id number] [place] [address] 2020-06-26 2020-06-26 Outpatient [facility] [id number] -[id number] Univers 09:30:00 09:30:00 ity of [facility] 2020-06-26 2020-06-26 Outpatient R [facility] [id number] Univers 09:30:00 09:30:00 ity of [facility] 2020-06-03 2020-06-03 Outpatient R [facility]IE [facility] [id number] Univers 08:40:00 08:40:00 [id number] ity of [facility] 2020-05-30 2020-05-30 Outpatient R [facility] [id number] -[id number] Univers 09:00:00 09:00:00 RADHA [id number] ity of [facility] 2020-05-30 2020-05-30 Outpatient R [facility] [id number] Univers 09:00:00 09:00:00 RADHA ity [facility] 2020-05-13 2020-05-13 Outpatient [facility] [id number] -[id number] Univers 08:00:00 08:00:00 [id number] ity [facility] 2020-05-02 2020-05-02 Outpatient R [facility] [id number] -[id number] Univers 09:00:00 09:00:00 RADHA [id number] ity [facility] 2020-03-26 2020-03-26 Outpatient [facility] [id number] -[id number] Univers 13:00:00 [facility]:00[facility] 2020-03-17 2020-03-18 Laboratory Pc, Adc Echo Room 1 - [facility] 1 .2.840.114 [id number] Univers 09:46:38 15:29:58 Only Dorota Shaver 350.1.13.10 [facility] 4.2.7.2.686 Sowmya Arellano [phone] [place] dical nal [address] [facility] 2020-03-17 2020-03-17 Outpatient [facility] [id number] -[id number] Univers 10:00:00 10:00:00 [id number] [facility] 2020-03-17 2020-03-17 Outpatient R [facility] [id number] Univers 10:00:00 10:00:00 ity [facility] 2020-03-07 2020-03-07 Outpatient R [facility] [id number] -[id number] Univers 08:30:00 08:30:00 RADHA [id number] [facility] 2020-03-07 2020-03-07 Outpatient R [facility] [id number] Univers 08:30:00 08:30:00 RADHA [facility] 2020-03-03 2020-03-03 Outpatient Alicia [facility] [id number] Univers 10:00:00 10:00:00 [id number] ity [facility] 2020-03-03 2020-03-03 Outpatient R [facility] [id number] Univers 00:00:00 00:00:00 ity [facility] 2020-02-21 2020-02-21 Ellie Fernández 1.2.840.114 [id number] Univers 00:00:00 00:00:00 [facility] 350.1.13.10 it [place] [id number] [address] 2020-02-20 2020-02-20 Outpatient R [facility] [id number] -[id number] Univers 15:00:00 15:00:00 DOROTA [id number] ity o f [facility] 2020-02-20 2020-02-20 Outpatient R [facility] [id number] Univers 15:00:00 15:00:00 DOROTA ity o f [facility] 2020-02-20 2020-02-20 [facility] 1.2.840.114 [id number] Univers 09:06:12 09:26:12 ne Visit [place] 350.1.13.10 [place] [phone] [place] dical community health9 [facility] 2020-02-18 2020-02-18 Refill Ellie Kuo 1.2.840.114 [id number] Univers 00:00:00 00:00:00 [facility] 350.1.13.10 it [place] [id number] [address] 2020-02-12 2020-02-12 Orders Doctor WADE 1.2.840.114 [id number] Univers 00:00:00 00:00:00 Only Unassigned, DAJUAN 350.1.13.10 ity of [place] [facility] 4.2.7.2.686 Jord[place] as [id number] [facility] [address] 2020-02-07 2020-02-07 Outpatient R [facility] [id number] Univers 11:00:00 11:00:00 [id number] ity of [facility] 2020-02-07 2020-02-07 Outpatient R [facility] [id number] Univers 00:00:00 00:00:00 ity of [facility] 2020-01-15 2020-01-15 Ellie Fernández 1.2.840.114 [id number] Univers 00:00:00 00:00:00 [facility] 350.1.13.10 [place] [id number] [facility] CARE - [address] MARTHA 2020-01-10 2020-01-11 Office Care, Ang Primary MARICEL 1.2.840 .114 [id number] Univers 10:26:47 11:05:43 Visit Ellie Kuo [facility] 350.1.13.10 it[place] [id number] [facility] [address] 2020-01-10 2020-01-10 Orders Doctor WADE 1.2.840.114 [id number] Univers 00:00:00 00:00:00 Only Unassigned, DAJUAN 350.1.13.10 ity of [place] [facility] 4.2.7.2.686 Jord[place] as [id number] [facility] [address] Results Test Description Test Time Test Comments Results Result Comments Source TSH, THIRD GENERATION 2021-11-07 06:59:20 Test Item Value Reference Range Interpretation Comme nts TSH, THIRD GENERATION (test code = 2821) 1.290 UIU/ML 0.400-4.100 COMPREHENSIVE METABOLIC [id number] 06:05:05 Test Item Value Reference Range Interpretation Comments GLUCOSE (test code = 92 MG/DL 70-99 2216) BUN (test code = 12 MG/DL -2207) CREATININE (test 0.65 MG/DL 0.60-1.30 EFFECTIVE code = 2214) 11/02/2021, [facility] HAS IMPLEMENTED THE NKF-ASN RECOMME NDED KD-EPI EGF R REFIT CALCULATI ON THAT DOES NOT INCLUDE A COEFFICIENT FOR RACE. FOR MORE INFORMATION, SE E ANNOUNCEMENT [email or web address] eGFR (2020 CKD-EPI) 105 >60 (test code = 01878) ML/MIN/1.73 CALC BUN/CREAT (test 18 RATIO 6-28 code = 2235) SODIUM (test code = 142 MEQ/L 741-303 1539) POTASSIUM (test code 4.1 MEQ/L 3.5-5.4 = 2228) CHLORIDE (test code 104 MEQ/L 95-107 = 2215) CARBON DIOXIDE (test 26 MEQ/L 19-31 code = 2206) CALCIUM (test code = 9.6 MG/DL 8.5-10.5 2208) PROTEIN, TOTAL (test 7.9 G/DL 6.1-8.3 code = 2229) ALBUMIN (test code = 4.0 G/DL 3.5-5.2 2200) CALC GLOBULIN (test 3.9 G/DL 1.9-3.7 H code = 2240) CALC A/G RATIO (test 1.0 RATIO 1.0-2.6 code = 2234) BILIRUBIN, TOTAL 0.2 MG/DL See_Comment [Automated message] (test code = 220) The syste m which generated this result transmit jaime reference range : <=1.2. The refe rence range was not u sed to interpret th is result as normal/abnormal . ALKALINE PHOSPHATASE 70 U/L 40-133 (test code = 220) AST (test code = 16 U/L 9-40 2217) ALT (test code = 23 U/L 5-40 2218) LIPID [id number] 06:05:05 Test Item Value Reference Range Interpretation Comments CHOLESTEROL (test 151 MG/DL <200 code = 2210) TRIGLYCERIDES (test 99 MG/DL <150 code = 2232) HDL CHOLESTEROL (test 35 MG/DL >39 L code = 2220) CALC LDL CHOL (test 97 MG/DL <100 NOTE: C ALCULATED LDL code = 2237) IS BASED ON RUPA-KHAN METHOD WHICHINCLUDES ADJUSTABLE TRIGLYCERIDE:VL DL CHOLESTEROL RAT IO.THIS FACTOR VARIES B Y MEASURED TRIGLY CERIDE AND NON-HDLCHOL ESTEROL CONCENTRATIONS WITH INCREASED CALCU LATED LDL SEENIN HIGH ER TRIGLYCERIDE OR LOWER NON-HDL SPECIME NS. FOR MOREINFORMATION , SEE CLIENT ANNOUNCE MENT AT [email or web address] [email or web address] RATIO LDL/HDL 2.77 RATIO <3.22 UN LESS (test code = 2238) OTHERWISE INDICATED, ALL TESTING PER FORMED ATCLINICAL PATH OLOGY LABORATORIES, I [place]. [address] [place] [address] LABORATORY DIRE CTOR: ZEINAB PRO M.D. CLIA NUMBER [id number] CAP ACCREDITATION N O. [id number] HEPATITIS PANEL, [id number] 05:57:02 Test Item Value Reference Range Interpretation Comments HEPATITIS A IgM (test NON-REACTIVE NON-REACTIVE code = 58098) HEPATITIS B CORE IgM NON-REACTIVE NON-REACTIVE (test code = 4644) HEPATITIS B SURF AG NON-REACTIVE NON-REACTIVE (test code = 2739) HEPATITIS C ANTIBODY NON-REACTIVE NON-REACTIVE (test code = 4675) INTERPRETATION (NOTE) Hepatiti s A HEPATITIS A: (test code sero logy shows no = 2552) evidence of acu te hepatitis A. INTERPRETATION (NOTE) Hepatiti s B HEPATITIS B: (test code sero logy shows no = 34276) evidence of acu te hepatitis B and no indication of exposure to hepatitis B vir us in the previous juan eight months. INTERPRETATION (NOTE) Hepatiti s C HEPATITIS C: (test code sero logy shows no = 20572) evidence of exposure to hepatitisC viru s at this time. It can take up to 12 months after exposure tothe hepatitis C vir us for antibodies to become detectab le in the bloo d in certain patients. CBC W/AUTO DIFF WITH [id number] 04:45:05 Test Item Value Reference Range Interpretation Comments WBC (test code = 5.2 K/UL 3.5-11.0 1001) RBC (test code = 4.32 M/UL 3.80-5.40 1002) HEMOGLOBIN (test code 12.4 G/DL 11.5-15.5 = 1003) HEMATOCRIT (test code 38.3 % 34.0-45.0 = 1004) MCV (test code = 88.7 fL 80.0-99.0 1005) MCH (test code = 28.7 PG 25.0-33.0 1006) MCHC (test code = 32.4 G/DL 31.0-36.0 1007) RDW (test code = 13.3 % 11.5-15.0 1038) NEUTROPHILS (test 47.9 % NOTE: EFF ECTIVE code = 1008) 10/12/2021, REFERENCE INTER VALS AND FLAGGING FORRELATIVE (%) WBC DIFFERENTIAL WI LL BE ELIMINATED REDUNDANT TOABS OLUTE COUNTS.SEE [email or web address] _upda te LYMPHOCYTES (test 38.9 % code = 1010) MONOCYTES (test code 10.4 % = 1011) EOSINOPHILS (test 1.3 % code = 1012) BASOPHILS (test code 1.3 % = 1013) IMMATURE GRANYLOCYTES 0.2 % (test code = 1036) NUCLEATED RBCS (test 0.0 /100 See_Comment [Autom ated message] code = 1065) WBC'S The system Sesamea generated this result transmit jaime reference range : 0.0. The refere nce range was not u sed to interpret th is result as normal/abnormal . PLATELET COUNT (test 357 K/UL 130-400 code = 1015) ABSOLUTE NEUTROPHILS 2.48 K/UL 1.50-7.50 (test code = 1066) ABSOLUTE LYMPHOCYTES 2.02 K/UL 1.00-4.00 (test code = 1067) ABSOLUTE MONOCYTES 0.54 K/UL 0.20-1.00 (test code = 1068) ABSOLUTE EOSINOPHILS 0.07 K/UL 0.00-0.50 (test code = 1040) ABSOLUTE BASOPHILS 0.07 K/UL 0.00-0.20 (test code = 1069) ABS IMMATURE 0.01 K/UL 0.00-0.10 GRANULOCYTES (test code = 1020) ABS NUCLEATED RBCS 0.00 K/UL 0.00-0.11 (test code = 31629) BASIC METABOLIC PANEL (NA, K, CL, CO2, GLUCOSE, BUN, CREATININE, CA)2021-11-01 12:02:10 Test Item Value Reference Range Interpretation Comments NA (test code = 141 mmol/L 135-145 2183019377) K (test code = 4.0 mmol/L 3.5-5.0 1168949217) CL (test code = 103 mmol/L 98-108 7536655203) CO2 TOTAL (test code = 32 mmol/L 23-31 H 5778675448) AGAP (test code = 2-16 2266261668) BUN (test code = 8 mg/dL 7-23 0644055640) GLUCOSE (test code = 96 mg/dL 70-110 0005845695) CREATININE (test code = 0.75 mg/dL 0.50-1.04 2789137799) CALCIUM (test code = 9.5 mg/dL 8.6-10.6 1779650742) eGFR (test code = mL/min/1.73m2 5840138019) PETERSON (test code = PETERSON) Association of Glomerular Filtration Rate (GFR) and Staging of Kidney Disease* + --+ --+ ------+| GFR (mL/min/1.73 m2) ?| With Kidney Damage ?| ?Without Kidney Damage+ --------+ --------+ +| ?>90 ?| ?Stage one ?| ? Normal ?+ ---+ ---+ -------+| ?60-89 ?| ?Stage two ?| ? Decreased GFR ? + --+ --+ ------+| ?30-59 ?| ?Stage three ?| ? Stage three ? + --+ --+ ------+| ?15-29 ?| ?Stage four ? | ? Stage four ?+ ---+ ---+ -------+| ?<15 (or dialysis) ? ?| ?Stage five ? | ? Stage five ?+ ---+ ---+ -------+ *Each stage assumes the associated GFR level has been in effect for at least three months. ?Stages 1 to 5, with or without kidney disease, indicate chronic kidney disease. Notes: Determination of stages one and two (with eGFR >59mL/min/1.73 m2) requires estimation of kidney damage for at least three months as defined by structural or functional abnormalities of the kidney, manifested by either:Pathological abnormalities or Markers of kidney damage (including abnormalities in the composition of the blood or urine or abnormalities in imaging tests). Lab Interpretation Abnormal (test code = 02702-3) [facility] Test Item Value Reference Range Interpretation Comments LIPASE (test code = 3911075470) 132 U/L 0-220 Lab Interpretation (test code = Normal 39394-1) [facility] [id number] 11:49:08 Test Item Value Reference Range Interpretation Comments WBC (test code = See_Comment [Automated 9551-2) message] The sy stem which generated this result transmitted reference range : 4.30 - 11.10 10*3/?L. The reference range was not used to interpret this result as normal/abnormal . RBC (test code = See_Comment [Automated 219-8) message] The sy stem which generated this result transmitted reference range : 3.93 - 5.25 10*6/?L. The reference range was not used to interpret this result as normal/abnormal . HGB (test code = 11.8 g/dL 11.6-15.0 718-7) HCT (test code = 37.4 % 35.7-45.2 4544-3) MCV (test code = 90.6 fL 80.6-95.5 787-2) MCH (test code = 28.6 pg 25.9-32.8 785-6) MCHC (test code = 31.6 g/dL 31.6-35.1 786-4) RDW-SD (test code = 47.8 fL 39.0-49.9 91735-9) RDW-CV (test code = 14.4 % 12.0-15.5 788-0) PLT (test code = See_Comment [Automated 777-3) message] The sy stem which generated this result transmitted reference range : 166 - 358 10*3/ ?L. The reference r martha was not used to interpret this result as normal/abnormal . MPV (test code = 10.8 fL 9.5-12.9 95304-8) NRBC/100 WBC (test See_Comment [Automat ed code = [id number]) message] The system which generated this result transmitted reference range : 0.0 - 10.0 /100 WBCs. The refer ence range was not u sed to interpret th is result as normal/abnormal . NRBC x10^3 (test code <0.01 See_Comment [Auto mated = [id number]) message] The s ystem which generated this result transmitted reference range : 10*3/?L. The reference range was not used to interpret this result as normal/abnormal . GRAN MAT (NEUT) % 60.4 % (test code = 770-8) IMM GRAN % (test code 0.60 % = [id number]) LYMPH % (test code = 24.9 % 736-9) MONO % (test code = 12.6 % 5905-5) EOS % (test code = 0.9 % 713-8) BASO % (test code = 0.6 % 706-2) GRAN MAT x10^3(ANC) 5.28 10*3/uL 1.88-7.09 (test code = [id number]) IMM GRAN x10^3 (test 0.05 10*3/uL 0.00-0.06 code = [id number]) LYMPH x10^3 (test code 2.18 10*3/uL 1.32-3.29 = 731-0) MONO x10^3 (test code 1.10 10*3/uL 0.33-0.92 H = 742-7) EOS x10^3 (test code = 0.08 10*3/uL 0.03-0.39 711-2) BASO x10^3 (test code 0.05 10*3/uL 0.01-0.07 = 704-7) Lab Interpretation Abnormal (test code = 51685-6) [facility] WITH [id number] 11:39:39 Test Item Value Reference Range Interpretation Comments WBC (test code = See_Comment [Automated 4697-2) message] The sy stem which generated this result transmitted reference range : 4.30 - 11.10 10*3/?L. The reference range was not used to interpret this result as normal/abnormal . RBC (test code = See_Comment [Automated 031-8) message] The sy stem which generated this result transmitted reference range : 3.93 - 5.25 10*6/?L. The reference range was not used to interpret this result as normal/abnormal . HGB (test code = 11.8 g/dL 11.6-15.0 718-7) HCT (test code = 37.8 % 35.7-45.2 4544-3) MCV (test code = 90.0 fL 80.6-95.5 787-2) MCH (test code = 28.1 pg 25.9-32.8 785-6) MCHC (test code = 31.2 g/dL 31.6-35.1 L 786-4) RDW-SD (test code = 47.8 fL 39.0-49.9 19062-4) RDW-CV (test code = 14.6 % 12.0-15.5 788-0) PLT (test code = See_Comment [Automated 837-3) message] The sy stem which generated this result transmitted reference range : 166 - 358 10*3/ ?L. The reference r martha was not used to interpret this result as normal/abnormal . MPV (test code = 10.8 fL 9.5-12.9 63300-6) NRBC/100 WBC (test See_Comment [Automat ed code = 1420572984) message] The system which generated this result transmitted reference range : 0.0 - 10.0 /100 WBCs. The refer ence range was not u sed to interpret th is result as normal/abnormal . NRBC x10^3 (test code <0.01 See_Comment [Auto mated = 6802647154) message] The s ystem which generated this result transmitted reference range : 10*3/?L. The reference range was not used to interpret this result as normal/abnormal . GRAN MAT (NEUT) % 65.9 % (test code = 770-8) IMM GRAN % (test code 0.60 % = 7790878862) LYMPH % (test code = 21.0 % 736-9) MONO % (test code = 11.4 % 5905-5) EOS % (test code = 0.7 % 713-8) BASO % (test code = 0.4 % 706-2) GRAN MAT x10^3(ANC) 6.39 10*3/uL 1.88-7.09 (test code = 9368828302) IMM GRAN x10^3 (test 0.06 10*3/uL 0.00-0.06 code = 2827692982) LYMPH x10^3 (test code 2.04 10*3/uL 1.32-3.29 = 731-0) MONO x10^3 (test code 1.11 10*3/uL 0.33-0.92 H = 742-7) EOS x10^3 (test code = 0.07 10*3/uL 0.03-0.39 711-2) BASO x10^3 (test code 0.04 10*3/uL 0.01-0.07 = 704-7) Lab Interpretation Abnormal (test code = 57050-9) [facility] METABOLIC PANEL (NA, K, CL, CO2, GLUCOSE, BUN, CREATININE, CA)2021-10-31 11:22:58 Test Item Value Reference Range Interpretation Comments NA (test code = 139 mmol/L 135-145 3570172127) K (test code = 4.1 mmol/L 3.5-5.0 6301534530) CL (test code = 104 mmol/L 98-108 0804963239) CO2 TOTAL (test code 29 mmol/L 23-31 = 2371314627) AGAP (test code = 2-16 3723399278) BUN (test code = 7 mg/dL 7-23 2723792523) GLUCOSE (test code = 92 mg/dL 70-110 8045588967) CREATININE (test code 0.58 mg/dL 0.50-1.04 = 8383525861) CALCIUM (test code = 9.4 mg/dL 8.6-10.6 0920258809) eGFR (test code = mL/min/1.73m2 0435055672) PETERSON (test code = PETERSON) Association of Glomerular Filtration Rate (GFR) and Staging of Kidney Disease* + + +- +| GFR (mL/min/1.73 m2) ?| With Kidney Damage ?| ?Without Kidney Damage+ ------+ ----+ ------+| ?>90 ?| ?Stage one ?| ? Normal ?+ -+ + -+| ?60-89 ?| ?Stage two ?| ? Decreased GFR ? + + +- +| ?30-59 ?| ?Stage three ?| ? Stage three ? + + +- +| ?15-29 ?| ?Stage four ? | ? Stage four ?+ -+ + -+| ?<15 (or dialysis) ? ?| ?Stage five ? | ? Stage five ?+ -+ + -+ *Each stage assumes the associated GFR level has been in effect for at least three months. ?Stages 1 to 5, with or without kidney disease, indicate chronic kidney disease. Notes: Determination of stages one and two (with eGFR >59mL/min/1.73 m2) requires estimation of kidney damage for at least three months as defined by structural or functional abnormalities of the kidney, manifested by either:Pathological abnormalities or Markers of kidney damage (including abnormalities in the composition of the blood or urine or abnormalities in imaging tests). [facility]22[facility]17 Test Item Value Reference Range Interpretation Comments LIPASE (test code = 7918593835) 152 U/L 0-220 Lab Interpretation (test code = Normal 01233-5) [facility] (A1C)2021-10-30 12:27:34 Test Item Value Reference Range Interpretation Comments HGB A1C (test code = 5.4 % 4.0-5.7 4548-4) PETERSON (test code = PETERSON) Reference RangesNormal: <5.7%Prediabetes: 5.7 - 6.4%Diabetes: > 6.5% Lab Interpretation (test Normal code = 16185-6) [facility] (NA, K, CL, CO2, GLUCOSE, BUN, CREATININE, CA)2021-10-30 11:35:56 Test Item Value Reference Range Interpretation Comments NA (test code = 138 mmol/L 135-145 7592611470) K (test code = 3.9 mmol/L 3.5-5.0 5345942649) CL (test code = 102 mmol/L 98-108 4058403762) CO2 TOTAL (test code = 26 mmol/L 23-31 2026401626) AGAP (test code = 2-16 0994519606) BUN (test code = 11 mg/dL 7-23 4295231886) GLUCOSE (test code = 115 mg/dL 70-110 H 6895507096) CREATININE (test code = 0.69 mg/dL 0.50-1.04 7203412655) CALCIUM (test code = 9.4 mg/dL 8.6-10.6 3752531419) eGFR (test code = mL/min/1.73m2 5517879045) PETERSON (test code = PETERSON) Association of Glomerular Filtration Rate (GFR) and Staging of Kidney Disease* + --+ --+ ------+| GFR (mL/min/1.73 m2) ?| With Kidney Damage ?| ?Without Kidney Damage+ --------+ --------+ +| ?>90 ?| ?Stage one ?| ? Normal ?+ ---+ ---+ -------+| ?60-89 ?| ?Stage two ?| ? Decreased GFR ? + --+ --+ ------+| ?30-59 ?| ?Stage three ?| ? Stage three ? + --+ --+ ------+| ?15-29 ?| ?Stage four ? | ? Stage four ?+ ---+ ---+ -------+| ?<15 (or dialysis) ? ?| ?Stage five ? | ? Stage five ?+ ---+ ---+ -------+ *Each stage assumes the associated GFR level has been in effect for at least three months. ?Stages 1 to 5, with or without kidney disease, indicate chronic kidney disease. Notes: Determination of stages one and two (with eGFR >59mL/min/1.73 m2) requires estimation of kidney damage for at least three months as defined by structural or functional abnormalities of the kidney, manifested by either:Pathological abnormalities or Markers of kidney damage (including abnormalities in the composition of the blood or urine or abnormalities in imaging tests). Lab Interpretation Abnormal (test code = 92723-6) [facility] (06358)(TOTAL CHOLESTEROL, TRIGLYCERIDES, HDL)2021-10-30 11:35:56 Test Item Value Reference Range Interpretation Comments CHOL (test code = 160 mg/dL 120-200 3912950075) HDL (test code = 44 mg/dL >50 L 2657616068) HDLC RATIO (test code = See_Comment [Au tomated message] 7380944962) The system [employer] generated this result transmit jaime reference range : <=4.5. The refe rence range was not u sed to interpret th is result as normal/abnormal . TRIG (test code = 71 mg/dL 30-170 2095501812) LDL CHOL (test code = 102 mg/dL See_Comment [Auto mated message] 83352-2) The system [employer] generated this result transmit jaime reference range : <=160. The refe rence range was not u sed to interpret th is result as normal/abnormal . VLDL (test code = 14 mg/dL 5-60 5096545545) Lab Interpretation (test Abnormal code = 27531-4) [facility] 11:34:56 Test Item Value Reference Range Interpretation Comments LIPASE (test code = 9414456172) 200 U/L 0-220 Lab Interpretation (test code = Normal 60516-6) [facility] CenterCB with [id number] 11:10:55 Test Item Value Reference Range Interpretation Comments WBC (test code = See_Comment H [Automated 6690-2) message] The sy stem which generated this result transmitted reference range : 4.30 - 11.10 10*3/?L. The reference range was not used to interpret this result as normal/abnormal . RBC (test code = See_Comment [Automated 789-8) message] The sy stem which generated this result transmitted reference range : 3.93 - 5.25 10*6/?L. The reference range was not used to interpret this result as normal/abnormal . HGB (test code = 12.1 g/dL 11.6-15.0 718-7) HCT (test code = 37.7 % 35.7-45.2 4544-3) MCV (test code = 90.2 fL 80.6-95.5 787-2) MCH (test code = 28.9 pg 25.9-32.8 785-6) MCHC (test code = 32.1 g/dL 31.6-35.1 786-4) RDW-SD (test code = 48.1 fL 39.0-49.9 03744-8) RDW-CV (test code = 14.6 % 12.0-15.5 788-0) PLT (test code = See_Comment [Automated 777-3) message] The sy stem which generated this result transmitted reference range : 166 - 358 10*3/ ?L. The reference r martha was not used to interpret this result as normal/abnormal . MPV (test code = 10.9 fL 9.5-12.9 93303-4) NRBC/100 WBC (test See_Comment [Automat ed code = 3870936866) message] The system which generated this result transmitted reference range : 0.0 - 10.0 /100 WBCs. The refer ence range was not u sed to interpret th is result as normal/abnormal . NRBC x10^3 (test code <0.01 See_Comment [Auto mated = 6510561033) message] The s ystem which generated this result transmitted reference range : 10*3/?L. The reference range was not used to interpret this result as normal/abnormal . GRAN MAT (NEUT) % 72.3 % (test code = 770-8) IMM GRAN % (test code 0.40 % = 1121372991) LYMPH % (test code = 16.2 % 736-9) MONO % (test code = 10.5 % 5905-5) EOS % (test code = 0.3 % 713-8) BASO % (test code = 0.3 % 706-2) GRAN MAT x10^3(ANC) 8.31 10*3/uL 1.88-7.09 H (test code = 1574502355) IMM GRAN x10^3 (test 0.05 10*3/uL 0.00-0.06 code = 8490592051) LYMPH x10^3 (test code 1.87 10*3/uL 1.32-3.29 = 731-0) MONO x10^3 (test code 1.21 10*3/uL 0.33-0.92 H = 742-7) EOS x10^3 (test code = 0.03 10*3/uL 0.03-0.39 711-2) BASO x10^3 (test code 0.04 10*3/uL 0.01-0.07 = 704-7) Lab Interpretation Abnormal (test code = 24773-6) [id number] 05:29[facility]57 Test Item Value Reference Interpretation Comments Range TROPONIN I (test 0.001 ng/mL See_Comment [Automated code = 2978506549) message] The system which generated this result transmitted reference range : <=0.034. The reference range was not used to interpret this result as normal/abnormal . PETERSON (test code = Reference (Normal) PETERSON) Range (defined by the 99th percentile reference limit): <= 0.034 ng/mL Note: Cardiac troponin begins to rise 3-4 hours after the onset of ischemia. Repeat in 4-6 hours if the sample was drawn within 3-4 hours of the onset of the symptom and found normal. Diagnosis of myocardial injury is made with acute changes in cTn concentrations with at least one serial sample above the 99th percentile upper reference limit (URL), taken together with the patient's clinical presentation. Biotin has been reported to cause a negative bias, interpret results relative to patient's use of biotin. Lab Interpretation Normal (test code = 81811-3) [facility] CenterTHYROID STIMULATING [id number] 22:42:23 Test Item Value Reference Range Interpretation Comments TSH (test code = See_Comment [Automated message] 2634078406) The system [employer] generated this result transmitted ref erence range: 0.45 - 4 .70 mIU/L. The refe rence range was not u sed to interpret this result as normal/abnor mal. Lab Interpretation (test Normal code = 83337-6) [facility]MAG[facility]IUM2021-[facility]-09 17:46:19 Test Item Value Reference Range Interpretation Comments MAGNESIUM (test code = 3089477264) 2.0 mg/dL 1.7-2.4 Lab Interpretation (test code = Normal 10217-0) [facility] CenterTROP[facility]IN [id number] 16:03:45 Test Item Value Reference Interpretation Comments Range TROPONIN I (test 0.000 ng/mL See_Comment [Automated code = 1780218740) message] The system which generated this result transmitted reference range : <=0.034. The reference range was not used to interpret this result as normal/abnormal . PETERSON (test code = Reference (Normal) PETERSON) Range (defined by the 99th percentile reference limit): <= 0.034 ng/mL Note: Cardiac troponin begins to rise 3-4 hours after the onset of ischemia. Repeat in 4-6 hours if the sample was drawn within 3-4 hours of the onset of the symptom and found normal. Diagnosis of myocardial injury is made with acute changes in cTn concentrations with at least one serial sample above the 99th percentile upper reference limit (URL), taken together with the patient's clinical presentation. Biotin has been reported to cause a negative bias, interpret results relative to patient's use of biotin. Lab Interpretation Normal (test code = 15613-5) [facility] CenterCOMP. METABOLIC PANEL (21337)2021-10-29 15:52:23 Test Item Value Reference Range Interpretation Comments NA (test code = 138 mmol/L 135-145 0066344724) K (test code = 4.2 mmol/L 3.5-5.0 0657555094) CL (test code = 105 mmol/L 98-108 8828375288) CO2 TOTAL (test code = 26 mmol/L 23-31 2977335654) AGAP (test code = 2-16 6749471321) BUN (test code = 11 mg/dL 7-23 2209094536) GLUCOSE (test code = 111 mg/dL 70-110 H 7780528205) CREATININE (test code = 0.61 mg/dL 0.50-1.04 8984744481) TOTAL BILI (test code = 0.7 mg/dL 0.1-1.9 5900758421) CALCIUM (test code = 9.5 mg/dL 8.6-10.6 2190558851) T PROTEIN (test code = 8.1 g/dL 6.3-8.2 7729591993) ALBUMIN (test code = 4.0 g/dL 3.5-5.0 7452981736) ALK PHOS (test code = 90 U/L 34-122 9455886743) ALTv (test code = 21 U/L 5-35 1742-6) AST(SGOT) (test code = 20 U/L 13-40 8562853546) eGFR (test code = mL/min/1.73m2 7990059425) PETERSON (test code = PETERSON) Association of Glomerular Filtration Rate (GFR) and Staging of Kidney Disease* + --+ --+ ------+| GFR (mL/min/1.73 m2) ?| With Kidney Damage ?| ?Without Kidney Damage+ --------+ --------+ +| ?>90 ?| ?Stage one ?| ? Normal ?+ ---+ ---+ -------+| ?60-89 ?| ?Stage two ?| ? Decreased GFR ? + --+ --+ ------+| ?30-59 ?| ?Stage three ?| ? Stage three ? + --+ --+ ------+| ?15-29 ?| ?Stage four ? | ? Stage four ?+ ---+ ---+ -------+| ?<15 (or dialysis) ? ?| ?Stage five ? | ? Stage five ?+ ---+ ---+ -------+ *Each stage assumes the associated GFR level has been in effect for at least three months. ?Stages 1 to 5, with or without kidney disease, indicate chronic kidney disease. Notes: Determination of stages one and two (with eGFR >59mL/min/1.73 m2) requires estimation of kidney damage for at least three months as defined by structural or functional abnormalities of the kidney, manifested by either:Pathological abnormalities or Markers of kidney damage (including abnormalities in the composition of the blood or urine or abnormalities in imaging tests). Lab Interpretation Abnormal (test code = 91942-8) [facility] 15:52:02 Test Item Value Reference Range Interpretation Comments LIPASE (test code = 1595058539) 314 U/L 0-220 H Lab Interpretation (test code = Abnormal 56754-2) [facility] CenterACTIVATED PARTIAL THRMPLAS [id number] 15:42:03 Test Item Value Reference Range Interpretation Comments APTT Patient (test See_Comment [Automat ed code = 3173-2) message] The system which generated this result transmitted reference range : 23 - 38 Seconds . The reference range was not used to interpr et this result as normal/abnormal . PETERSON (test code = PETERSON) The [facility] patient population mean normal value for aPTT is 30 seconds. Lab Interpretation Normal (test code = 51820-6) [facility] CenterPROTHROMBIN TIME / [id number] 15:39:43 Test Item Value Reference Range Interpretation Comments PROTIME PATIENT (test See_Comment [Auto mated message] code = 5964-2) The system wh ich generated this result transmitted ref erence range: 12.0 - 1 4.7 Seconds. The re ference range was not u sed to interpret this result as normal/abnor mal. INR (test code = 6301-6) Nor mal INR <1.1; Warfarin Therap eutic range 2.0 to 3. 0 or 2.5 to 3.5, dep ending upon the indica tions. Lab Interpretation (test Normal code = 90043-6) [facility] CenterCBC WITH [id number] 15:07:22 Test Item Value Reference Range Interpretation Comments WBC (test code = See_Comment H [Automated 4277-2) message] The sy stem which generated this result transmitted reference range : 4.30 - 11.10 10*3/?L. The reference range was not used to interpret this result as normal/abnormal . RBC (test code = See_Comment [Automated 789-8) message] The sy stem which generated this result transmitted reference range : 3.93 - 5.25 10*6/?L. The reference range was not used to interpret this result as normal/abnormal . HGB (test code = 13.1 g/dL 11.6-15.0 718-7) HCT (test code = 41.3 % 35.7-45.2 4544-3) MCV (test code = 89.4 fL 80.6-95.5 787-2) MCH (test code = 28.4 pg 25.9-32.8 785-6) MCHC (test code = 31.7 g/dL 31.6-35.1 786-4) RDW-SD (test code = 47.8 fL 39.0-49.9 62474-8) RDW-CV (test code = 14.5 % 12.0-15.5 788-0) PLT (test code = See_Comment [Automated 777-3) message] The sy stem which generated this result transmitted reference range : 166 - 358 10*3/ ?L. The reference r martha was not used to interpret this result as normal/abnormal . MPV (test code = 11.3 fL 9.5-12.9 59285-1) NRBC/100 WBC (test See_Comment [Automat ed code = 8443684277) message] The system which generated this result transmitted reference range : 0.0 - 10.0 /100 WBCs. The refer ence range was not u sed to interpret th is result as normal/abnormal . NRBC x10^3 (test code <0.01 See_Comment [Auto mated = 0975249162) message] The s ystem which generated this result transmitted reference range : 10*3/?L. The reference range was not used to interpret this result as normal/abnormal . GRAN MAT (NEUT) % 73.9 % (test code = 770-8) IMM GRAN % (test code 0.30 % = 3161591255) LYMPH % (test code = 14.5 % 736-9) MONO % (test code = 10.4 % 5905-5) EOS % (test code = 0.5 % 713-8) BASO % (test code = 0.4 % 706-2) GRAN MAT x10^3(ANC) 8.23 10*3/uL 1.88-7.09 H (test code = 0567892335) IMM GRAN x10^3 (test 0.03 10*3/uL 0.00-0.06 code = 3265664517) LYMPH x10^3 (test code 1.62 10*3/uL 1.32-3.29 = 731-0) MONO x10^3 (test code 1.16 10*3/uL 0.33-0.92 H = 742-7) EOS x10^3 (test code = 0.06 10*3/uL 0.03-0.39 711-2) BASO x10^3 (test code 0.04 10*3/uL 0.01-0.07 = 704-7) Lab Interpretation Abnormal (test code = 64908-8) [facility] CenterPOCT [id number] 14:58:00 Test Item Value Reference Range Interpretation Comments POCT PREG (test code = 1605) negatvie On board controls acceptable with present C Line (test code = 3574) POCT PREG LOT # (test code = 3575) [id number] POCT PREG TEST DATE (test code = 3576) Lab Interpretation (test code = Normal 79810-2) [facility] CenterTROPONIN [id number] 06:45:58 Test Item Value Reference Interpretation Comments Range TROPONIN I (test 0.001 ng/mL See_Comment [Automated code = 3320637479) message] The system which generated this result transmitted reference range : <=0.034. The reference range was not used to interpret this result as normal/abnormal . PETERSON (test code = Reference (Normal) PETERSON) Range (defined by the 99th percentile reference limit): <= 0.034 ng/mL Note: Cardiac troponin begins to rise 3-4 hours after the onset of ischemia. Repeat in 4-6 hours if the sample was drawn within 3-4 hours of the onset of the symptom and found normal. Diagnosis of myocardial injury is made with acute changes in cTn concentrations with at least one serial sample above the 99th percentile upper reference limit (URL), taken together with the patient's clinical presentation. Biotin has been reported to cause a negative bias, interpret results relative to patient's use of biotin. Lab Interpretation Normal (test code = 17489-9) [facility] CenterN-TERMINAL [id number] 06:03:35 Test Item Value Reference Range Interpretation Comments NT-proBNP (test code 297 pg/mL See_Comment H [Autom ated = 0567273588) message] The system which generated this result transmitted reference range : <=125. The reference range was not used to interpret this result as normal/abnormal . PETERSON (test code = PETERSON) Biotin has been reported to cause a negative bias, interpret results relative to patient's use of biotin. Lab Interpretation Abnormal (test code = 13699-5) [facility] CenterTROPONIN [id number] 05:18:56 Test Item Value Reference Interpretation Comments Range TROPONIN I (test 0.002 ng/mL See_Comment [Automated code = 7584041864) message] The system which generated this result transmitted reference range : <=0.034. The reference range was not used to interpret this result as normal/abnormal . PETERSON (test code = Reference (Normal) PETERSON) Range (defined by the 99th percentile reference limit): <= 0.034 ng/mL Note: Cardiac troponin begins to rise 3-4 hours after the onset of ischemia. Repeat in 4-6 hours if the sample was drawn within 3-4 hours of the onset of the symptom and found normal. Diagnosis of myocardial injury is made with acute changes in cTn concentrations with at least one serial sample above the 99th percentile upper reference limit (URL), taken together with the patient's clinical presentation. Biotin has been reported to cause a negative bias, interpret results relative to patient's use of biotin. Lab Interpretation Normal (test code = 25289-9) [facility] CenteraPTT2021-12-[facility] 05:13:13 Test Item Value Reference Range Interpretation Comments APTT Patient (test See_Comment [Automat ed code = 3173-2) message] The system which generated this result transmitted reference range : 23 - 38 Seconds . The reference range was not used to interpr et this result as normal/abnormal . PETERSON (test code = PETERSON) The [facility] patient population mean normal value for aPTT is 30 seconds. Lab Interpretation Normal (test code = 53412-9) [facility] CenterPROTHROMBIN TIME / [id number] 05:07:32 Test Item Value Reference Range Interpretation Comments PROTIME PATIENT (test See_Comment [Auto mated message] code = 5964-2) The system [employer] generated this result transmitted ref erence range: 12.0 - 1 4.7 Seconds. The re ference range was not u sed to interpret this result as normal/abnor mal. INR (test code = 6301-6) Nor mal INR <1.1; Warfarin Therap eutic range 2.0 to 3. 0 or 2.5 to 3.5, dep ending upon the indica tions. Lab Interpretation (test Normal code = 58648-6) [facility]. METABOLIC PANEL (72629)2021-10-26 05:07:17 Test Item Value Reference Range Interpretation Comments NA (test code = 138 mmol/L 135-145 9633417323) K (test code = 4.3 mmol/L 3.5-5.0 2444986082) CL (test code = 103 mmol/L 98-108 4613605288) CO2 TOTAL (test code = 25 mmol/L 23-31 7827563205) AGAP (test code = 2-16 9696463485) BUN (test code = 19 mg/dL 7-23 9062964003) GLUCOSE (test code = 111 mg/dL 70-110 H 9790888844) CREATININE (test code = 0.78 mg/dL 0.50-1.04 1045671275) TOTAL BILI (test code = 0.4 mg/dL 0.1-1.8 9504269326) CALCIUM (test code = 9.6 mg/dL 8.6-10.6 2670207269) T PROTEIN (test code = 8.2 g/dL 6.3-8.2 6691159238) ALBUMIN (test code = 4.2 g/dL 3.5-5.0 4429505981) ALK PHOS (test code = 86 U/L 34-122 5640175435) ALTv (test code = 21 U/L 5-35 1742-6) AST(SGOT) (test code = 20 U/L 13-40 4000203243) eGFR (test code = mL/min/1.73m2 5287606452) PETERSON (test code = PETERSON) Association of Glomerular Filtration Rate (GFR) and Staging of Kidney Disease* + --+ --+ ------+| GFR (mL/min/1.73 m2) ?| With Kidney Damage ?| ?Without Kidney Damage+ --------+ --------+ +| ?>90 ?| ?Stage one ?| ? Normal ?+ ---+ ---+ -------+| ?60-89 ?| ?Stage two ?| ? Decreased GFR ? + --+ --+ ------+| ?30-59 ?| ?Stage three ?| ? Stage three ? + --+ --+ ------+| ?15-29 ?| ?Stage four ? | ? Stage four ?+ ---+ ---+ -------+| ?<15 (or dialysis) ? ?| ?Stage five ? | ? Stage five ?+ ---+ ---+ -------+ *Each stage assumes the associated GFR level has been in effect for at least three months. ?Stages 1 to 5, with or without kidney disease, indicate chronic kidney disease. Notes: Determination of stages one and two (with eGFR >59mL/min/1.73 m2) requires estimation of kidney damage for at least three months as defined by structural or functional abnormalities of the kidney, manifested by either:Pathological abnormalities or Markers of kidney damage (including abnormalities in the composition of the blood or urine or abnormalities in imaging tests). Lab Interpretation Abnormal (test code = 86785-5) [facility] [id number] 05:07:16 Test Item Value Reference Range Interpretation Comments LIPASE (test code = 2524144733) 315 U/L 0-220 H Lab Interpretation (test code = Abnormal 44503-4) [facility] [id number] 04:59:13 Test Item Value Reference Range Interpretation Comments WBC (test code = See_Comment [Automated 3932-2) message] The sy stem which generated this result transmitted reference range : 4.30 - 11.10 10*3/?L. The reference range was not used to interpret this result as normal/abnormal . RBC (test code = See_Comment [Automated 014-8) message] The sy stem which generated this result transmitted reference range : 3.93 - 5.25 10*6/?L. The reference range was not used to interpret this result as normal/abnormal . HGB (test code = 13.0 g/dL 11.6-15.0 718-7) HCT (test code = 41.2 % 35.7-45.2 4544-3) MCV (test code = 90.9 fL 80.6-95.5 787-2) MCH (test code = 28.7 pg 25.9-32.8 785-6) MCHC (test code = 31.6 g/dL 31.6-35.1 786-4) RDW-SD (test code = 49.1 fL 39.0-49.9 05611-7) RDW-CV (test code = 14.6 % 12.0-15.5 788-0) PLT (test code = See_Comment [Automated 777-3) message] The sy stem which generated this result transmitted reference range : 166 - 358 10*3/ ?L. The reference r martha was not used to interpret this result as normal/abnormal . MPV (test code = 11.5 fL 9.5-12.9 12290-1) NRBC/100 WBC (test See_Comment [Automat ed code = [id number]) message] The system which generated this result transmitted reference range : 0.0 - 10.0 /100 WBCs. The refer ence range was not u sed to interpret th is result as normal/abnormal . NRBC x10^3 (test code <0.01 See_Comment [Auto mated = [id number]) message] The s ystem which generated this result transmitted reference range : 10*3/?L. The reference range was not used to interpret this result as normal/abnormal . GRAN MAT (NEUT) % 63.4 % (test code = 770-8) IMM GRAN % (test code 0.50 % = 9638995484) LYMPH % (test code = 24.1 % 736-9) MONO % (test code = 10.9 % 5905-5) EOS % (test code = 0.6 % 713-8) BASO % (test code = 0.5 % 706-2) GRAN MAT x10^3(ANC) 6.49 10*3/uL 1.88-7.09 (test code = 2669337196) IMM GRAN x10^3 (test 0.05 10*3/uL 0.00-0.06 code = 4537533528) LYMPH x10^3 (test code 2.47 10*3/uL 1.32-3.29 = 731-0) MONO x10^3 (test code 1.11 10*3/uL 0.33-0.92 H = 742-7) EOS x10^3 (test code = 0.06 10*3/uL 0.03-0.39 711-2) BASO x10^3 (test code 0.05 10*3/uL 0.01-0.07 = 704-7) Lab Interpretation Abnormal (test code = 13653-9) [facility] 2 [id number] 02:31:30XR LUMBAR SPINE 2 VW HISTORY: Female 50 years pain COMPARISON: None FINDINGS: Transitional lumbosacral anatomy with sacralization of L5. The vertebral bodies are normal in height and in normal alignment. No more than mild degenerative changes are present.[facility], Radiant Results Inft User - 10/27/2020 8:32 PM CSTXR LUMBAR SPINE 2 VWHISTORY: Female 50 years pain COMPARISON: NoneFINDINGS:Transitional lumbosacral anatomy with sacralization of L5.The vertebral bodies are normal in height and in normal alignment.No more than mild degenerative changes are present.[facility] 3 VW [id number] 20:14:59 No acute bony abnormality. Osteoarthrosis. Moderate joint effusion. Soft tissue swelling. Preliminary Report Dictated by Resident: Daisy Fajardo MD., have reviewed this study and agree with the abovereport.Exam: XR KNEE 3 VW LEFT HISTORY: pain COMPARISON: None FINDINGS:Radiographs of the knee demonstrate no fracture or dislocation. Medialcompartment joint space narrowing, subchondral sclerosis andtricompartmental marginal osteophyte formation is present. Intra-articul arloose bodies are present. A moderate joint effusion is present. Distalthigh and infrapatellar softtissue swelling is present. [facility], Radiant Results Inft User - 10/27/2020 2:16 PM CSTExam:XR KNEE 3VW LEFTHISTORY: pain COMPARISON: NoneFINDINGS:Radiographs of the knee demonstrate no fracture or dislocation. Medialcompartment joint space narrowing, subchondral sclerosis andtricompartmental marginalosteophyte formation is present. Intra- articularloose bodies are present. A moderate joint effusion is present. Distalthigh and infrapatellar soft tissue swelling is present.IMPRESSIONNo acute bony abnormality.Osteoarthrosis.Moderate joint effusion.Soft tissue swelling.Preliminary Report Dictated by Resident: Larisa Foy, Daisy Van MD., have reviewed this study and agree with the abovereport. [facility] VW [id number] 20:12:411. Osteoarthritic changes are present at the right knee without evidencefor acute osseous abnormality. RL: [id number] ORDERING PHYSICIAN: ELLIE KUO THREE VIEWS OF THE RIGHT KNEE. DATE: ?10/06/2020 CLINICAL HISTORY: ?Chronic right knee pain, instability. COMPARISON: ?None. FINDINGS: 3 views of the right knee demonstrate no evidence for fracture,subluxation or destructive osseous lesion. Osteoarthritic changes arepresent manifested as medialgreater than lateral tibiofemoral compartmentjoint space narrowing with subchondral sclerosis and osteophyte formation.No significant knee effusion is identified. [facility], Radiant Results Inft User - 10/06/2020 2:13 PM CSTORDERING PHYSICIAN: ELLIE ZENDEJAS VIEWS OF THE RIGHT KNEE.DATE: 10/06/2020CLINICAL HISTORY: Chronic right knee pain, instability.COMPARISON: None.FINDINGS: 3 views of the right knee demonstrate no evidence for fracture,subluxation or destructive osseous lesion. Osteoarthritic changes arepresent manifested as medial greater than lateral tibiofemoral compartmentjoint space narrowing with subchondral sclerosis and osteophyte formation.No significant knee effusion is identified.IMPRESSION1. Osteoarthritic changes are present at the right knee without evidencefor acute osseous abno rmality.RL: [id number] [facility]"
[2022-01-14] MEDS ORDERED: MORPHINE 2 MG/ML SYR ONE (17:58)
[2022-01-14] MEDS ORDERED: ONDANSETRON 4 MG/2 ML VIAL ONE (17:59)
[2022-01-14 18:07] LABS: Absolute Lymphocytes (CBC) 1.4 K/uL (0.7-4.9); Lymphocytes % 13.7 % (15.3-44.8); MPV 8.5 fL (7.6-11.3); RBC Red Blood Cell Count 4.59 M/uL (3.86-4.86)
--- NOTE | 2022-01-14 18:21 | RAD REPORT ---
EXAM DESCRIPTION: US - Extremity Venous Uni Ltd - 01/14/2022 6:09 pm CLINICAL HISTORY: PAIN COMPARISON: Extrem Venous W Compress Iban dated 07/25/2018Extrem Venous W Compress Iban dated 07/25/2018 TECHNIQUE: Real-time sonographic evaluation of the lower extremity deep venous systems was performed using color Doppler, grayscale, and compression. FINDINGS: Normal compressibility, flow augmentation, phasic flow and spontaneous flow is identified in the left lower extremity deep venous systems. No intraluminal filling defects seen. IMPRESSION: No DVT in the left lower extremity.
[2022-01-14 18:35] LABS: Albumin 3.4 g/dL (3.4-5.0); Bilirubin Direct 0.1 mg/dL (0-0.2); Bilirubin Total 0.4 mg/dL (0.2-1.0); Potassium 3.7 mmol/L (3.5-5.1); Protein, Total 9.5 g/dL (6.4-8.2); Troponin High Sensitivity 5.5 pg/mL (<58.9)
--- NOTE | 2022-01-14 18:55 | RAD REPORT ---
EXAM DESCRIPTION: RAD - Chest Single View - 01/14/2022 6:26 pm CLINICAL HISTORY: ABDOMINAL DISTENTION COMPARISON: Chest Single View dated 07/25/2018; Chest Pa And Lat (2 Views) dated 02/15/2018; CHEST SING LE VIEW dated 03/01/2014; CHEST SINGLE VIEW dated 02/28/2014 FINDINGS: Lines: None. Lungs: No acute disease. Pleural: No significant pleural effusions or pneumothorax. Cardiac: Cardiomegaly. Bones: No acute fractures. Other: IMPRESSION: No acute cardiopulmonary disease.
--- NOTE | 2022-01-14 19:18 | RAD REPORT ---
EXAM DESCRIPTION: CTAbdomen Pelvis W Contrast - 01/14/2022 6:54 pm CLINICAL HISTORY: ABD PAIN COMPARISON: No comparisons TECHNIQUE: CT of the abdomen and pelvis was performed. All CT scans are performed using dose optimization technique as appropriate and may include automated exposure control or mA/KV adjustment according to patient size. FINDINGS: Lower chest: No acute abnormality. Liver: No acute abnormality or suspicious lesions. Biliary: No biliary ductal dilatation. Stomach: No significant focal abnormality. Duodenum: No significant focal abnormality. Pancreas: Diffuse peripancreatic stranding. Spleen: No significant abnormality. Adrenal: No suspicious lesions. Kidney/ureter: No hydronephrosis. No renal calculi. Retroperitoneum: No retroperitoneal adenopathy. Vascular: No aneurysm. Bowel: No significant focal abnormality. Normal appendix . Peritoneum: No ascites or free air. Small fat containing umbilical hernia. Bladder: Grossly unremarkable. Reproductive: No adnexal masses. Bones: No acute fracture. Other: n/a IMPRESSION: Diffuse peripancreatic edema consistent with acute pancreatitis. No complicating feature s .
--- NOTE | 2022-01-14 19:29 | EDPHYS ---
Physician Documentation [facility] Name: Nisreen Astorga Age: 51 yrs Sex: Female : 1970 Arrival Date: 01/14/2022 Time: 16:57 Bed 28 Private MD: ED Physician Geoffrey Scott HPI: 01/14 17:50 This 51 yrs old Black Female presents to ER via Wheelchair with complaints of Abdominal cp Pain, Vomiting, Chest Pain, Headache. 17:50 The patient presents with abdominal pain that is diffuse. Onset: The symptoms/episode cp began/occurred yesterday. 17:50 The symptoms do not radiate. Associated signs and symptoms: Pertinent positives: nausea cp and vomiting, radiating pain to chest, Pertinent negatives: blood in stools, constipation, diarrhea, fever, vomiting blood. The symptoms are described as constant. Patient c/o left upper inner leg pain. Denies injury. Denies lower back pain. 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 tw2 Historical: - Allergies: 17:03 No Known Allergies; tw2 - Home Meds: 17:03 citalopram 20 mg tab 1 tab once daily [Active]; Coreg 80 mg Oral 1 tab [Active]; tw2 amlodipine 10 mg oral tab 1 tab once daily [Active]; naproxen 500 mg Oral tab 1 tab 2 times per day [Active]; Katerine Aspirin 325 mg Oral tab 1 tab once daily [Active]; losartan 100 mg oral tab 1 tab once daily [Active]; hydralazine 10 mg Oral tab 1 tab 2 times per day [Active]; chlorpheniramine maleate(bulk) 4 mg miscellaneous powd [Active]; metoprolol tartrate 50 mg Oral tab 1 tab 2 times per day [Active]; cyclobenzaprine 10 mg Oral tab 1 tab 3 times per day [Active]; Vitamin D-3 with Aloe 5000 intl units oral tab daily [Active]; - PMHx: 17:03 Asthma; Hypertension; tw2 - Immunization history:: Client reports receiving the 2nd dose of the Covid vaccine, Flu vaccine is up to date. - Social history:: Smoking status: Patient denies any tobacco usage or history of. ROS: 18:00 Constitutional: Positive for poor PO intake, Negative for body aches, chills, fever. cp 18:00 Eyes: Negative for injury, pain, redness, and discharge. cp 18:00 ENT: Negative for drainage from ear(s), ear pain, sore throat, difficulty swallowing, difficulty handling secretions. 18:00 Cardiovascular: Positive for radiating pain to chest, Negative for palpitations. 18:00 Respiratory: Negative for cough, shortness of breath, wheezing. 18:00 Abdomen/GI: Positive for abdominal pain, nausea and vomiting, anorexia, Negative for diarrhea, constipation, hematemesis, black/tarry stool, rectal bleeding. 18:00 MS/extremity: Positive for pain, of the left upper inner leg, Negative for injury or acute deformity, decreased range of motion, paresthesias. 18:00 Neuro: Negative for altered mental status, headache, weakness. 18:00 All other systems are negative. Exam: 18:05 Constitutional: The patient appears in no acute distress, alert, awake, cp non-diaphoretic, non-toxic, well developed, well nourished, obese. 18:05 Head/Face: Normocephalic, atraumatic. cp 18:05 Eyes: Periorbital structures: appear normal, Conjunctiva: normal, no exudate, no injection, Sclera: no appreciated abnormality, Lids and lashes: appear normal, bilaterally. 18:05 ENT: External ear(s): are unremarkable, Nose: is normal, Mouth: Lips: moist, Oral mucosa: moist, Posterior pharynx: Airway: no evidence of obstruction, patent. 18:05 Chest/axilla: Inspection: normal. 18:05 Cardiovascular: Rate: normal, Rhythm: regular, Heart sounds: murmur, not appreciated, Edema: is not appreciated, JVD: is not appreciated. 18:05 Respiratory: the patient does not display signs of respiratory distress, Respirations: normal, no use of accessory muscles, no retractions, labored breathing, is not present, Breath sounds: are clear throughout, no decreased breath sounds, no stridor, no wheezing. 18:05 Abdomen/GI: Inspection: obese Bowel sounds: active, all quadrants, Palpation: soft, in all quadrants, moderate abdominal tenderness, in all quadrants, rebound tenderness, is not appreciated, voluntary guarding, is elicited in all quadrants. 18:05 Back: pain, is absent, ROM is normal. 18:05 Musculoskeletal/extremity: Extremities: grossly normal except: noted in the left upper inner leg: pain. 18:05 Neuro: Orientation: to person, place \\T\\ time. Mentation: is normal. Vital Signs: 16:58 BP 148 / 90; Pulse 96; Resp 17; Temp 99.9(TE); Pulse Ox 96% on R/A; Weight 148.78 kg tw2 (R); Height 5 ft. 2 in. (157.48 cm); Pain 10/10; 17:36 BP 150 / 68; Pulse 94; Resp 18; Pulse Ox 98% ; lr4 19:51 BP 145 / 81; Pulse 100; Resp 20; Pulse Ox 97% ; lr4 21:56 BP 166 / 83; Pulse 94; Resp 20; Temp 99.1; Pulse Ox 94% ; lr4 16:58 Body Mass Index 59.99 (148.78 kg, 157.48 cm) tw2 MDM: 17:30 Patient medically screened. cp 18:00 Differential diagnosis: appendicitis, bowel obstruction, cholecystitis, Cholelithiasis, cp diverticulitis, gastritis, non-specific abd pain, pancreatitis, Peptic Ulcer Disease, Perf. Duodenal Ulcer, Perf. Gastric Ulcer, Pyelonephritis, Ureterolithiasis, urinary tract infection. 19:25 Data reviewed: vital signs, nurses notes, lab test result(s), EKG, radiologic studies, cp CT scan, plain films. 19:25 Test interpretation: by ED physician or midlevel provider: ECG, plain radiologic cp studies. 19:30 Physician consultation: Nohelia ZACARIAS was called at 19:27, was contacted at 19:27, regarding admission, to the medical/surgical unit. patient's condition. 01/14 17:40 Order name: Basic Metabolic Panel; Complete Time: 18:37 cp 01/14 17:40 Order name: CBC with Diff; Complete Time: 18:17 cp 01/14 17:40 Order name: Hepatic Function; Complete Time: 18:37 cp 01/14 17:40 Order name: Lipase; Complete Time: 18:37 cp 01/14 18:37 Interpretation: Abnormal: LIP 2107. cp 01/14 17:40 Order name: Troponin High Sensitivity; Complete Time: 18:37 cp 01/14 19:36 Order name: COVID-19 SARS RT PCR (Document "Date of Onset" if Symptomatic) bb 01/14 17:40 Order name: XRAY Chest (1 view); Complete Time: 19:21 cp 01/14 17:40 Order name: CT Abd/Pelvis - IV Contrast Only; Complete Time: 19:21 cp 01/14 19:22 Interpretation: Report reviewed. 01/14 17:40 Order name: EKG; Complete Time: 17:41 cp 01/14 17:40 Order name: US Extremity Venous Unilateral Ltd; Complete Time: 18:37 cp 01/14 17:40 Order name: IV Saline Lock; Complete Time: 17:50 cp 01/14 17:40 Order name: Labs collected and sent; Complete Time: 17:50 cp 01/14 17:40 Order name: EKG - Nurse/Tech; Complete Time: 18:13 cp Administered Medications: 18:13 Drug: morphine 4 mg Route: IVP; Site: left antecubital; ab2 20:09 Follow up: Response: Pain is decreased lr4 18:13 Drug: Zofran (Ondansetron) 4 mg Route: IVP; Site: left antecubital; ab2 20:09 Follow up: Response: No adverse reaction; Pain is decreased lr4 20:09 Drug: NS 0.9% 1000 ml Route: IV; Rate: 1 bolus; Site: right antecubital; lr4 22:07 Follow up: IV Status: Infusion continued; Infusion continued upon admission; Infusion lr4 continued upon transfer Disposition Summary: 01/14/22 19:28 Hospitalization Ordered Hospitalization Status: Inpatient Admission cp Provider: Pedro Rice cp [facility] cp Condition: Stable cp Problem: new cp Symptoms: have improved cp Bed/Room Type: Standard cp Room Assignment: 407(01/14/22 21:43) mw Diagnosis - Acute pancreatitis without necrosis or infection, unspecified cp Forms: - Medication Reconciliation Form cp - SBAR form cp Signatures: Dispatcher [employer] EDXiao Davis RN RN Karlos Marcus PA PA cp Cony Salinas RN RN tw2 Severino Ramirez ab2 Kendra Ayala RN RN lr4 Nohelia Wasserman PA PA sb3 Corrections: (The following items were deleted from the chart) 21:43 19:28 cp mw
--- NOTE | 2022-01-14 19:29 | ER ---
Nurse's Notes [facility] Name: Nisreen Astorga Age: 51 yrs Sex: Female : 1970 Arrival Date: 01/14/2022 Time: 16:57 Bed 28 Private MD: Diagnosis: Acute pancreatitis without necrosis or infection, unspecified Presentation: 01/14 16:58 Chief complaint: Patient states: i took my medicine and its got my stomach acting up. tw2 the pain goes in my chest. and i took some apple juice that was bad. and i feel like my LEFT leg is too heavy. it hurts real bad. i dont know if i have a clot. up in my thigh it gives me pains. it feels like it is just shocking me. Coronavirus screen: At this time, the client does not indicate any symptoms associated with coronavirus-19. Ebola Screen: Patient denies travel to an Ebola-affected area in the 21 days before illness onset. Initial Sepsis Screen: Does the patient meet any 2 criteria? HR > 90 bpm. Does the patient have a suspected source of infection? No. Patient's initial sepsis screen is negative. Risk Assessment: Do you want to hurt yourself or someone else? Patient reports no desire to harm self or others. Onset of symptoms was January 14, 2022. 16:58 Method Of Arrival: Wheelchair tw2 16:58 Acuity: DANIEL 3 tw2 Triage Assessment: 17:10 General: Appears in no apparent distress. uncomfortable, obese, Behavior is calm, tw2 cooperative, appropriate for age. Pain: Complains of pain in abdomen. 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 tw2 Historical: - Allergies: 17:03 No Known Allergies; tw2 - Home Meds: 17:03 citalopram 20 mg tab 1 tab once daily [Active]; Coreg 80 mg Oral 1 tab [Active]; tw2 amlodipine 10 mg oral tab 1 tab once daily [Active]; naproxen 500 mg Oral tab 1 tab 2 times per day [Active]; Katerine Aspirin 325 mg Oral tab 1 tab once daily [Active]; losartan 100 mg oral tab 1 tab once daily [Active]; hydralazine 10 mg Oral tab 1 tab 2 times per day [Active]; chlorpheniramine maleate(bulk) 4 mg miscellaneous powd [Active]; metoprolol tartrate 50 mg Oral tab 1 tab 2 times per day [Active]; cyclobenzaprine 10 mg Oral tab 1 tab 3 times per day [Active]; Vitamin D-3 with Aloe 5000 intl units oral tab daily [Active]; - PMHx: 17:03 Asthma; Hypertension; tw2 - Immunization history:: Client reports receiving the 2nd dose of the Covid vaccine, Flu vaccine is up to date. - Social history:: Smoking status: Patient denies any tobacco usage or history of. Screenin:17 Abuse screen: Denies threats or abuse. Nutritional screening: No deficits noted. tw2 Tuberculosis screening: No symptoms or risk factors identified. Fall Risk Secondary diagnosis (15 points) impaired mobility. Assessment: 17:36 General: Appears in no apparent distress. comfortable, Behavior is calm, cooperative. lr4 Neuro: No deficits noted. Cardiovascular: No deficits noted. Respiratory: No deficits noted. GI: Reports lower abdominal pain, upper abdominal pain, nausea, vomiting, x 1 occurrence this AM. GI: Abdomen is round distended, obese, Bowel sounds present X 4 quads. Abd is soft Abd is non tender X 4 quads. Musculoskeletal: Reports weakness in left leg Pain is 10 out of 10 on a pain scale. 22:08 Reassessment: Patient states feeling better. Pt departed ed to room 407 via stretcher lr4 per RN with all personal effects, vss, resp even an unlabored, pt in nad, stable for transport. Vital Signs: 16:58 BP 148 / 90; Pulse 96; Resp 17; Temp 99.9(TE); Pulse Ox 96% on R/A; Weight 148.78 kg tw2 (R); Height 5 ft. 2 in. (157.48 cm); Pain 10/10; 17:36 BP 150 / 68; Pulse 94; Resp 18; Pulse Ox 98% ; lr4 19:51 BP 145 / 81; Pulse 100; Resp 20; Pulse Ox 97% ; lr4 21:56 BP 166 / 83; Pulse 94; Resp 20; Temp 99.1; Pulse Ox 94% ; lr4 16:58 Body Mass Index 59.99 (148.78 kg, 157.48 cm) tw2 ED Course: 16:57 Patient arrived in ED. as 17:03 Triage completed. tw2 17:10 Arm band placed on. tw2 17:13 Karlos Goodman PA is PHCP. cp 17:13 Geoffrey Scott MD is Attending Physician. cp 17:17 Bed in low position. Call light in reach. Side rails up X2. Warm blanket given. Pillow tw2 given. 17:25 Inserted saline lock: 20 gauge in right antecubital area, using aseptic technique. eo2 Blood collected. 17:36 Kendra Ayala, RN is Primary Nurse. lr4 17:39 No provider procedures requiring assistance completed. lr4 17:50 US Extremity Venous Unilateral Ltd Sent. lr4 17:50 Troponin High Sensitivity Sent. lr4 17:50 Basic Metabolic Panel Sent. lr4 17:50 CBC with Diff Sent. lr4 17:50 Hepatic Function Sent. lr4 17:50 Lipase Sent. lr4 18:10 US Extremity Venous Unilateral Ltd In Process Unspecified. EDMS 18:26 XRAY Chest (1 view) In Process Unspecified. EDMS 18:54 CT Abd/Pelvis - IV Contrast Only In Process Unspecified. EDMS 19:28 Pedro Rice is Hospitalizing Provider. cp 21:56 Report given to Mary LOPEZ at rom 407. lr4 Administered Medications: 18:13 Drug: morphine 4 mg Route: IVP; Site: left antecubital; ab2 20:09 Follow up: Response: Pain is decreased lr4 18:13 Drug: Zofran (Ondansetron) 4 mg Route: IVP; Site: left antecubital; ab2 20:09 Follow up: Response: No adverse reaction; Pain is decreased lr4 20:09 Drug: NS 0.9% 1000 ml Route: IV; Rate: 1 bolus; Site: right antecubital; lr4 22:07 Follow up: IV Status: Infusion continued; Infusion continued upon admission; Infusion lr4 continued upon transfer Outcome: 17:39 Condition: stable lr4 19:28 Decision to Hospitalize by Provider. cp 22:09 Patient left the ED. lr4 Signatures: Dispatcher [employer] EDMS Mercedez Newby as Karlos Goodman PA PA cp Wise, Tara RN RN tw2 Elysia Solo RN RN eo2 Severino Ramirez ab2 Kendra Ayala RN RN lr4
[2022-01-14] MEDS ORDERED: NA CHLORIDE 0.9% 2,000 ML ONE (19:58)
--- NOTE | 2022-01-14 20:04 | P.HP ---
Certification for Inpatient Patient admitted to: Inpatient With expected LOS: <2 Midnights Patient will require the following post-hospital care: None Practitioner: I am a practitioner with admitting privileges, knowledge of patient current condition, hospital course, and medical plan of care. Services: Services provided to patient in accordance with Admission requirements found in Title 42 Section 412.3 of the Code of Federal Regulations Patient History Date of Service: 01/14/22 Primary Care Provider: unknown Reason for admission: Pancreatitis History of Present Illness: Patient is a 51-year-old black female with hypertension and history of pancreatitis who presented to the ED with diffuse abdominal pain, chest pain, vomiting, and headache. She states the abdominal pain began yesterday after she drank some spoiled apple juice. She reports that she was admitted to the hospital in September 2021 for 4 days with pancreatitis and this pain feels the same. In the ED patient's labs are unremarkable except for a lipase of 2107. CT showed diffuse peripancreatic edema consistent with acute pancreatitis. No complicating features. Patient received morphine, Zofran, and 1 L bolus in the ED. Patient will be admitted for IV hydration and pain management of acute pancreatitis. Allergies No Known Allergies Allergy (Verified 03/01/14 05:05) Home medications list reviewed: Yes Home Medications: Metoprolol Tartrate [Lopressor*] 50 mg PO BID #60 tab 03/04/14 Albuterol Sulfate [Proair Hfa] 1 inh IH Q6HP PRN 07/25/18 Albuterol Sulfate [Proair Hfa] 8.5 gm IH Q6H PRN #1 [id number] 07/26/18 Amlodipine [Norvasc*] 10 mg PO DAILY #30 tab 07/26/18 Hydralazine [Apresoline*] 10 mg PO BID #60 tab 07/26/18 Metoprolol Tartrate [Lopressor*] 50 mg PO BID #60 tab 07/26/18 - Past Medical/Surgical History Diabetic: No -: HTN, HYPERLIPIDEMIA, ASTHMA, BRONCHITIS Past Surgical History: Patient denies surgical history - Family History Brother -: Heart disease Mother -: Heart disease, Diabetes - Social History Smoking Status: Never smoker Alcohol use: No CD- Drugs: No Caffeine use: No Place of Residence: Home Review of Systems 10-point ROS is otherwise unremarkable General: Weakness Cardiovascular: Chest Pain Gastrointestinal: Nausea, Vomiting, Abdominal Pain Musculoskeletal: Leg Pain Neurological: Weakness Physical Examination - Physical Exam General: Alert, In no apparent distress, Obese HEENT: Atraumatic, PERRLA, EOMI, Sclerae nonicteric Neck: Supple, 2+ carotid pulse no bruit, No LAD, Without JVD or thyroid abnormality Respiratory: Clear to auscultation bilaterally, Normal air movement, Diminished Cardiovascular: Regular rate/rhythm, Normal S1 S2 Gastrointestinal: Hypoactive, No rebound, No guarding, Tenderness Musculoskeletal: No tenderness Integumentary: No rashes Neurological: Normal speech, Normal strength at 5/5 x4 extr, Normal tone, Normal affect - Studies Laboratory Data (last 24 hrs) 01/14/22 17:40: WBC 10.00, Hgb 13.1, Hct 40.0, Plt Count 295 01/14/22 17:40: Sodium 137, Potassium 3.7, BUN 7, Creatinine 0.83, Glucose 105, Total Bilirubin 0.4, AST 13 L, ALT 22, Alkaline Phosphatase 81, Lipase 2107 H Assessment and Plan - Problems (Diagnosis) (1) Pancreatitis, acute Current Visit: Yes Status: Acute Qualifiers: Pancreatitis type: unspecified pancreatitis type Acute pancreatitis complication: no infection or necrosis Qualified Code(s): K85.90 - Acute pancreatitis without necrosis or infection, unspecified (2) Hypertension Current Visit: No Status: Chronic Qualifiers: Hypertension type: primary hypertension Qualified Code(s): I10 - Essential (primary) hypertension (3) Obesity (BMI 35.0-39.9 without comorbidity) Onset Date: 07/26/18 Current Visit: Yes Status: Chronic - Plan -morphine and zofran PRN for pain and nausea -1L bolus in the ED. Will continue NS at 100cc/hr -continue home medications and monitor blood pressure -unknown source of pancreatitis as patient denies alcohol use. lipid panel ordered for morning -NPO for now. Will advance diet as tolerated. DVT PPx: lovenox Code: Full Discharge Plan: Home Plan to discharge in: 48 Hours - Advance Directives Does patient have a Living Will: No Does patient have a Durable POA for Healthcare: No - Code Status/Comfort Care Code Status Assessed: Yes (Full) Critical Care: No Time Spent Managing Pts Care (In Minutes): 70
[2022-01-14] MEDS ORDERED: ONDANSETRON 4 MG/2 ML VIAL IV PRN (22:25)
[2022-01-14 22:34] VITALS: O2SAT 94
[2022-01-14] MEDS: ACETAMINOPHEN 500 MG TAB PO PRN (22:35)
[2022-01-14 23:24] VITALS: BMI 56.5
[2022-01-14] MEDS: NA CHLORIDE 0.9% 1,000 ML IV SCH (23:48)
[2022-01-14] MEDS: MORPHINE 4 MG/ML SYR IV PRN (23:49)
[2022-01-15 01:15] LABS: Urine Appearance CLEAR (Clear); Urine Bilirubin NEGATIVE (Negative); Urine Blood 2+ (Negative); Urine Color YELLOW (Yellow); Urine Glucose NEGATIVE (Negative); Urine Protein NEGATIVE (Negative); Urine Specific Gravity >=1.030 (1.005-1.030); Urine pH 6.5 (5.0-7.0)
[2022-01-15 01:23] LABS: Urine Microscopic Reflex ORDER UMIC
[2022-01-15 01:28] LABS: Urine Bacteria 20-50 /HPF (<20)
[2022-01-15 04:21] LABS: Absolute Lymphocytes (CBC) 2.2 K/uL (0.7-4.9); Hematocrit 36.4 % (36.0-45.0); Lymphocytes % 20.5 % (15.3-44.8); MPV 8.4 fL (7.6-11.3); RBC Red Blood Cell Count 4.18 M/uL (3.86-4.86)
[2022-01-15 05:06] LABS: ALT/SGPT 18 U/L (12-78); AST/SGOT 10 U/L (15-37); Alkaline Phosphatase 74 U/L (45-117); BUN Blood Urea Nitrogen 8 mg/dL (7-18); Bicarbonate 28 mmol/L (21-32); Bilirubin Total 0.5 mg/dL (0.2-1.0); Glucose Level 96 mg/dL (74-106); HDL Cholesterol 54 mg/dL (40-60); LDL Cholesterol, Calculated 96 (<130); Lipase 1628 U/L (73-393); Potassium 3.3 mmol/L (3.5-5.1); Protein, Total 8.5 g/dL (6.4-8.2); Sodium Level 138 mmol/L (136-145)
[2022-01-15] MEDS: ENOXAPARIN 40 MG/0.4 ML SQ SCH (08:53)
[2022-01-15] MEDS: MORPHINE 4 MG/ML SYR IV PRN ×3 (08:55→21:53)
[2022-01-15] MEDS: NA CHLORIDE 0.9% 1,000 ML IV SCH (09:00)
--- NOTE | 2022-01-15 15:54 | P.PN ---
Subjective Date of Service: 01/15/22 Primary Care Provider: unknown Chief Complaint: Pancreatitis Patient states her abdominal pain is better today. She denies any diarrhea. No vomiting since admission. Physical Examination - Vital Signs Temperature: 97.7 F Blood Pressure: 165/75 Pulse: 85 Respirations: 20 Pulse Ox (%): 97 - Studies Laboratory Data (last 24 hrs) 01/14/22 17:40: WBC 10.00, Hgb 13.1, Hct 40.0, Plt Count 295 01/14/22 17:40: Sodium 137, Potassium 3.7, BUN 7, Creatinine 0.83, Glucose 105, Total Bilirubin 0.4, AST 13 L, ALT 22, Alkaline Phosphatase 81, Lipase 2107 H Assessment And Plan - Current Problems (Diagnosis) (1) Pancreatitis, acute Current Visit: Yes Status: Acute Qualifiers: Pancreatitis type: unspecified pancreatitis type Acute pancreatitis complication: no infection or necrosis Qualified Code(s): K85.90 - Acute pancreatitis without necrosis or infection, unspecified (2) Obesity (BMI 35.0-39.9 without comorbidity) Onset Date: 07/26/18 Current Visit: Yes Status: Chronic (3) Hypertension Current Visit: No Status: Chronic Qualifiers: Hypertension type: primary hypertension Qualified Code(s): I10 - Essential (primary) hypertension - Plan Physical Exam General: Alert, In no apparent distress, Obese HEENT: Sclerae nonicteric Neck: Supple, No LAD, Without JVD or thyroid abnormality Respiratory: Clear to auscultation bilaterally, Normal air movement, Diminished Cardiovascular: Regular rate/rhythm, Normal S1 S2 Gastrointestinal: Normal BS, No rebound, No guarding, mild diffuse tenderness. Musculoskeletal: No tenderness Integumentary: No rashes Neurological: Normal speech, Normal strength at 5/5 x4 extr, Normal tone, Normal affect Plan: Start clear liquid diet. Continue to check lipase daily Supportive measures with IV fluid, pain management as needed, antiemetics. Will obtain liver ultrasound for closer look at her gallbladder for cholelithiasis. Considering MRCP to rule out biliary duct stones. Patient denies any alcohol intake. UA suggest UTI. Covid positive but asymptomatic. Start IV Rocephin for UTI. Follow urine culture.
[2022-01-15] MEDS: CEFTRIAXONE 1,000 MG in NA CHLORIDE 0.9% 50 ML IVPB SCH (17:07)
--- NOTE | 2022-01-15 19:53 | RAD REPORT ---
EXAM DESCRIPTION: US - Abdomen Exam Limited - 01/15/2022 7:38 pm CLINICAL HISTORY: Acute pancreatitis, r/o gall stones COMPARISON: Abdomen Pelvis W Contrast dated 01/14/2022 FINDINGS: Negative for cholelithiasis, biliary ductal dilatation, or gallbladder wall thickening. Co mmon bile duct measures 3 millimeters . The gallbladder wall measures 2 millimeters . IMPRESSION: Negative for cholelithiasis or acute cholecystitis. No biliary ductal dilatation.
[2022-01-15] MEDS ORDERED: HYDRALAZINE HCL 10 MG TABLET PO ONE (22:19)
[2022-01-16] MEDS: ACETAMINOPHEN 500 MG TAB PO PRN (01:53)
[2022-01-16] MEDS: MORPHINE 4 MG/ML SYR IV PRN ×3 (05:33→21:12)
[2022-01-16 06:15] LABS: Absolute Lymphocytes (CBC) 1.5 K/uL (0.7-4.9); Hematocrit 35.4 % (36.0-45.0); Lymphocytes % 13.1 % (15.3-44.8)
[2022-01-16 06:51] LABS: ALT/SGPT 17 U/L (12-78); AST/SGOT 9 U/L (15-37); Albumin 2.9 g/dL (3.4-5.0); Alkaline Phosphatase 72 U/L (45-117); BUN Blood Urea Nitrogen 7 mg/dL (7-18); Bicarbonate 26 mmol/L (21-32); Bilirubin Total 0.6 mg/dL (0.2-1.0); Glucose Level 94 mg/dL (74-106); Lipase 637 U/L (73-393); Potassium 3.3 mmol/L (3.5-5.1); Protein, Total 8.4 g/dL (6.4-8.2); Sodium Level 137 mmol/L (136-145)
[2022-01-16] MEDS: HYDRALAZINE HCL 20 MG/ML VIAL IV PRN ×2 (07:54→15:12)
[2022-01-16] MEDS ORDERED: HYDRALAZINE HCL 20 MG/ML VIAL ONE (07:55)
[2022-01-16] MEDS: CEFTRIAXONE 1,000 MG in NA CHLORIDE 0.9% 50 ML IVPB SCH (08:57)
[2022-01-16] MEDS: ENOXAPARIN 40 MG/0.4 ML SQ SCH (08:57)
[2022-01-16] MEDS ORDERED: POTASSIUM CL SA 10 MEQ TAB PO ONE ×2 (09:00→16:00)
[2022-01-16] MEDS ORDERED: ALBUTEROL INHALER 60 PUFF/8 GM IH PRN (11:30)
[2022-01-16] MEDS ORDERED: HOME MED 1 EA UNK (Losartan Potassium [Losartan Potassium] 100 MG Tablet) PO SCH (11:31)
[2022-01-16] MEDS ORDERED: CARVEDILOL PHOSPHATE 80 MG PO SCH (11:31)
[2022-01-16] MEDS ORDERED: METOPROLOL TAR 50 MG TAB PO SCH (11:32)
[2022-01-16] MEDS: AMLODIPINE 10 MG TAB PO SCH (12:26)
[2022-01-16] MEDS: CYCLOBENZAPRINE 10 MG TAB PO SCH ×2 (12:28→21:06)
--- NOTE | 2022-01-16 14:15 | P.PN ---
Subjective Date of Service: 01/16/22 Primary Care Provider: unknown Chief Complaint: Pancreatitis Patient states her abdominal pain is better today. She denies any diarrhea. No vomiting since admission. She has been tolerating clear liquid diet. She has hypertension and her blood pressure readings have been elevated. Physical Examination - Vital Signs Temperature: 100.3 F Blood Pressure: 180/83 Pulse: 113 Respirations: 16 Pulse Ox (%): 98 Assessment And Plan - Current Problems (Diagnosis) (1) Pancreatitis, acute Current Visit: Yes Status: Acute Qualifiers: Pancreatitis type: unspecified pancreatitis type Acute pancreatitis complication: no infection or necrosis Qualified Code(s): K85.90 - Acute pancreatitis without necrosis or infection, unspecified (2) Obesity (BMI 35.0-39.9 without comorbidity) Onset Date: 07/26/18 Current Visit: Yes Status: Chronic (3) Hypertension Current Visit: No Status: Chronic Qualifiers: Hypertension type: primary hypertension Qualified Code(s): I10 - Essential (primary) hypertension - Plan Physical Exam General: Alert, In no apparent distress, Obese HEENT: Sclerae nonicteric Neck: Supple, No LAD, Without JVD or thyroid abnormality Respiratory: Clear to auscultation bilaterally, Normal air movement, Diminished Cardiovascular: Regular rate/rhythm, Normal S1 S2 Gastrointestinal: Normal BS, No rebound, No guarding, mild diffuse tenderness. Musculoskeletal: No tenderness Integumentary: No rashes Neurological: Normal speech, Normal strength at 5/5 x4 extr, Normal affect Plan: Lipase level has trended down. Advance diet as tolerated Supportive measures with IV fluid, pain management as needed, antiemetics. Liver ultrasound is negative for any gallstones or biliary duct stone. I suspect her pancreatitis is medication related. UA suggest UTI. Urine culture shows mixed jona. Discontinue IV Rocephin. Covid positive but asymptomatic. Pain management as needed. Continue home antihypertensives. Hydralazine as needed for BP spikes. Holding NSAIDs for now.
[2022-01-16] MEDS: NA CHLORIDE 0.9% 1,000 ML IV SCH (14:25)
[2022-01-16] MEDS: HOME MED 1 EA UNK (Fluticasone/Salmeterol [Advair 250-50 Diskus] Blst.W.Dev) IH SCH (21:00)
[2022-01-16] MEDS: carvediloL 25 MG TAB PO SCH (21:07)
[2022-01-16] MEDS: HYDRALAZINE HCL 10 MG TABLET PO SCH (21:10)
[2022-01-17] MEDS: NA CHLORIDE 0.9% 1,000 ML IV SCH ×2 (00:25→08:16)
[2022-01-17 05:33] LABS: Absolute Lymphocytes (CBC) 1.5 K/uL (0.7-4.9); Hematocrit 35.2 % (36.0-45.0); Lymphocytes % 12.4 % (15.3-44.8); MPV 7.8 fL (7.6-11.3); RBC Red Blood Cell Count 4.09 M/uL (3.86-4.86)
[2022-01-17 05:59] LABS: ALT/SGPT 16 U/L (12-78); AST/SGOT 11 U/L (15-37); Albumin 2.5 g/dL (3.4-5.0); Alkaline Phosphatase 72 U/L (45-117); BUN Blood Urea Nitrogen 8 mg/dL (7-18); Bicarbonate 26 mmol/L (21-32); Bilirubin Total 0.7 mg/dL (0.2-1.0); Glucose Level 102 mg/dL (74-106); Lipase 260 U/L (73-393); Potassium 3.5 mmol/L (3.5-5.1); Protein, Total 8.2 g/dL (6.4-8.2); Sodium Level 137 mmol/L (136-145)
[2022-01-17] MEDS ORDERED: POTASSIUM CL SA 10 MEQ TAB PO ONE (08:00)
[2022-01-17] MEDS: CYCLOBENZAPRINE 10 MG TAB PO SCH ×2 (08:13→14:00)
[2022-01-17] MEDS: carvediloL 25 MG TAB PO SCH (08:14)
[2022-01-17] MEDS: HYDRALAZINE HCL 10 MG TABLET PO SCH (08:14)
[2022-01-17] MEDS: AMLODIPINE 10 MG TAB PO SCH (08:15)
[2022-01-17] MEDS: CEFTRIAXONE 1,000 MG in NA CHLORIDE 0.9% 50 ML IVPB SCH (08:16)
[2022-01-17] MEDS: HOME MED 1 EA UNK (Fluticasone/Salmeterol [Advair 250-50 Diskus] Blst.W.Dev) IH SCH (08:17)
[2022-01-17] MEDS: ENOXAPARIN 40 MG/0.4 ML SQ SCH (08:17)
[2022-01-17] MEDS ORDERED: HOME MED 1 EA UNK (Citalopram Hydrobromide [Celexa] 20 MG Tablet) PO SCH (09:00)
[2022-01-17] MEDS ORDERED: CHLORPHENIRAMINE MALEATE 4 MG PO SCH (09:00)
[2022-01-17] MEDS ORDERED: CITALOPRAM 10 MG TABLET PO SCH (09:00)
[2022-01-17] MEDS ORDERED: ASPIRIN 325 MG TAB PO SCH (09:00)
[2022-01-17] MEDS ORDERED: VITAMIN D 5,000 UNIT CAP PO SCH (09:00)
[2022-01-17] MEDS ORDERED: LOSARTAN POTASSIUM 50 MG TABLET PO SCH (09:00)
[2022-01-17 12:36] VITALS: BP 162/69; TEMP 98.6
--- NOTE | 2022-01-17 16:14 | P.DS ---
Admission Date: 01/14/22 Discharge Date: 01/17/22 Primary Care Provider: unknown Disposition: ROUTINE DISCHARGE Discharge Condition: FAIR Reason for Admission: Pancreatitis - Problems (1) Pancreatitis, acute Current Visit: Yes Status: Acute Qualifiers: Pancreatitis type: unspecified pancreatitis type Acute pancreatitis complication: no infection or necrosis Qualified Code(s): K85.90 - Acute pancreatitis without necrosis or infection, unspecified (2) Obesity (BMI 35.0-39.9 without comorbidity) Onset Date: 07/26/18 Current Visit: Yes Status: Chronic (3) Hypertension Current Visit: No Status: Chronic Qualifiers: Hypertension type: primary hypertension Qualified Code(s): I10 - Essential (primary) hypertension Brief History of Present Illness: Patient is a 51-year-old black female with hypertension and history of pancreatitis who presented to the ED with diffuse abdominal pain, chest pain, vomiting, and headache. She states the abdominal pain began yesterday after she drank some spoiled apple juice. She reports that she was admitted to the hospital in September 2021 for 4 days with pancreatitis and this pain feels the same. In the ED patient's labs are unremarkable except for a lipase of 2107. CT showed diffuse peripancreatic edema consistent with acute pancreatitis. No complicating features. Patient received morphine, Zofran, and 1 L bolus in the ED. Patient admitted for IV hydration and pain management of acute pancreatitis. Hospital Course: Patient admitted to the medical floor and treated supportively for acute pancreatitis. UA suggested the presence of UTI. Patient received a dose of IV Rocephin. Urine culture yielded mixed growth. Lipase level improved to normal. Patient symptoms resolved and she tolerated diet advancement to solid diet. Blood pressure was elevated and this was managed with her home antihypertensives. Patient has improved clinically and deemed stable for discharge. Vital Signs/Physical Exam: Temp Pulse Resp BP Pulse Ox 98.6 F 93 H 24 H 162/69 H 95 01/17/22 12:00 01/17/22 12:00 01/17/22 12:00 01/17/22 12:01/17/22 12:00 General: Alert, In no apparent distress, Oriented x3 HEENT: Mucous membr. moist/pink Neck: Supple, JVD not distended Respiratory: Clear to auscultation bilaterally, Normal air movement Cardiovascular: No edema, Regular rate/rhythm, Normal S1 S2 Gastrointestinal: Soft and benign, Non-distended, No tenderness Musculoskeletal: No swelling Integumentary: No rashes Neurological: Other (No focal motor deficit.) Laboratory Data at Discharge: WBC 12.00 K/uL (4.3-10.9) H 01/17/22 05:17 Hgb 11.7 g/dL (12.0-15.0) L 01/17/22 05:17 Hct 35.2 % (36.0-45.0) L 01/17/22 05:17 Plt Count 263 K/uL (152-406) 01/17/22 05:17 Sodium 137 mmol/L (136-145) 01/17/22 05:17 Potassium 3.5 mmol/L (3.5-5.1) 01/17/22 05:17 BUN 8 mg/dL (7-18) 01/17/22 05:17 Creatinine 0.68 mg/dL (0.55-1.3) 01/17/22 05:17 Glucose 102 mg/dL (74-106) 01/17/22 05:17 Total Bilirubin 0.7 mg/dL (0.2-1.0) 01/17/22 05:17 AST 11 U/L (15-37) L 01/17/22 05:17 ALT 16 U/L (12-78) 01/17/22 05:17 Alkaline Phosphatase 72 U/L (45-117) 01/17/22 05:17 Triglycerides 62 mg/dL (<150) 01/15/22 03:23 Cholesterol 162 mg/dL (<200) 01/15/22 03:23 HDL Cholesterol 54 mg/dL (40-60) 01/15/22 03:23 Cholesterol/HDL Ratio 3.00 01/15/22 03:23 Lipase 260 U/L (73-393) 01/17/22 05:17 Home Medications: Albuterol Sulfate [Proair Hfa] 1 inh IH Q6HP PRN 07/25/18 Amlodipine [Norvasc*] 10 mg PO DAILY #30 tab 07/26/18 Hydralazine [Apresoline*] 10 mg PO BID #60 tab 07/26/18 Metoprolol Tartrate [Lopressor*] 50 mg PO BID #60 tab 07/26/18 Aspirin Tab [Katerine Aspirin*] 325 mg PO DAILY 01/15/22 Carvedilol Phosphate [Coreg Cr] 80 mg PO DAILY 01/15/22 Chlorpheniramine Maleate [Aller-Chlor] 4 mg PO DAILY 01/15/22 Cholecalciferol (Vitamin D3) [Vitamin D 5,000 IU Cap*] 5,000 unit PO DAILY 01/15/22 Citalopram Hydrobromide [Celexa] 20 mg PO DAILY 01/15/22 Cyclobenzaprine [Flexeril*] 10 mg PO TID 01/15/22 Fluticasone/Salmeterol [Advair 250-50 Diskus] 1 inh IH BID 01/15/22 Hydralazine [Apresoline*] 10 mg PO BID 01/15/22 Losartan Potassium 100 mg PO DAILY 01/15/22 Diet: AHA Activity: Ad michael Followup: BETI BANG [Primary Care Provider] - 1-2 Weeks Time spent managing pt's care (in minutes): 33
--- NOTE | 2022-01-19 09:14 | EKG ---
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
== END 2022-01-17 16:52 | disposition home or self-care (01) | DRG 438 ==
LOC: ER 16:55 → ERHOLD 19:52 → 4TH 21:52
PROVIDERS: ADMIT Internal Medicine; ATTEND Internal Medicine
DX: K85.90 Acute pancreatitis without necrosis or infection, unspecified (principal); U07.1 COVID-19; Z68.43 Body mass index [BMI] 50.0-59.9, adult; I10 Essential (primary) hypertension; E78.5 Hyperlipidemia, unspecified; E66.9 Obesity, unspecified
CPT/HCPCS: 36415; 71045; 74177; 76705; 80048; 80053; 80061; 80076; 81003; 81015; 83690; 84132; 84439; 84443; 84484; 85025; 87086; 87088; 93005; 93971; 96361; 96374; 96375; 99284; J0360; J1650; J2270; J2405; J7030; Q9967; U0003

== ENCOUNTER 2022-03-19 14:46 | Emergency (ER) | payer SELFPAY ==
--- OUTSIDE RECORDS SUMMARY | 2022-03-19 15:01 | XMS REPORT | Continuity of Care Document ---
:1970 Author Organization [facility] t Address [address] [place] [address] Care Team Providers Name Role Phone SHIELA [...] Echo Room 1 - Attending Clinician Unavailable DANNY Admitting Clinician Unavailable Danny BOLAND Admitting Clinician Catracho MILLIGAN Admitting Clinician Unavailable Payers Payer Name Policy Type Policy Number Effective Date Expiration Date Catracho walsh [employer] [id number] 2020 00:00:00 Problems Condition Condition Condition Status [...] nivers exam exam 05-27 ity of 00:00: [place] [facility] Heavy Heavy Disease Active Univers menses menses 05-27 ity of 00:00: [address] Asthma Asthma Disease Active 2014-11 Univers 12-05 ity of 00:00: [address] Branch H/O tubal H/O tubal Disease Active 2014-11 Uni vers ligation ligation 12-05 ity of 00:00: [address] Morbid Morbid Disease Active Univers obesity obesity 11-24 ity of 00:00: [address] Hypertensi Hypertensi Disease Active U nivers on on 11-24 ity of 00:00: [address] Allergies, Adverse Reactions, Alerts Allergy Allergy Status Severity Reaction(s) Onset Inactive Treating Comm ents Source Name Type Date Date Clinician NO KNOWN Drug Active Univers ALLERGIE Class ity of [facility] Social History Social Habit Start Date Stop Date Quantity Comments Source Exposure to Not sure [facility]-CoV-2 [facility] (event) [place] Alcohol intake 2021-10-30 2021-10-30 Critical access hospital 00:00:00 00:00:00 non-drinker of [facility] alcohol [place] (finding) Education 2021-10-29 2021-10-[address] [place] [address] 00:00:00 00:00:00 [facility] Tobacco use and 2014-10-31 2014-10-31 Never used Universit y of exposure 00:00:00 00:00:00 [facility] Sex [birth year] At [birth year] Universit y of 00:00:00 00:00:00 [facility] Smoking Status Start Date Stop Date Source Never smoker [facility] Medications Ordered Filled Start Stop Current Ordering Indication Dosage Frequency Signature Comments Components Source Medication Medication Date Date Medication? Clinician (SIG) Name Name diphenhydra 2020-11 Yes Take by Un moises mine HCl 2-12 mouth ity of (ALLERGY 16:07: daily. [place] RELIEF 50 Medical ORAL) Branch aspirin 81 2020-11 Yes 81mg Take 81 mg U nivers mg chewable 2-12 by mouth ity of tablet 16:07: daily. [address] vitamin B 2020-11 Yes Take by Univ ers complex (B 2-12 mouth ity of COMPLEX-VIT 16:07: daily. [facility] s LEON B12 50 Medical ORAL) Branch diphenhydra 2020-11 Yes Take by Un moises mine HCl 2-12 mouth ity of (ALLERGY 16:07: daily. [place] RELIEF 50 Medical ORAL) Branch aspirin 81 2020-11 Yes 81mg Take 81 mg U nivers mg chewable 2-12 by mouth ity of tablet 16:07: daily. [address] vitamin B 2020-11 Yes Take by Univ ers complex (B 2-12 mouth ity of COMPLEX-VIT 16:07: [facility]. [facility]) Branch polyethylen 2020-11 Yes 17g 17 g, Unive rs e glycol 2-12 Oral, BID, ity o f 3350 powder 05:30: First dose [place] 17 g 00 on [facility] 10/31/21 Branch at 2330, Until Discontinu ed, Routine bisacodyL 2020-11 Yes 10mg 10 mg, Univer s (DULCOLAX) 2-12 Rectal, ity of suppository 05:27: QDAILYPRN, [place] 10 mg 53 Starting Medical on [facility] Branch 10/31/21 at 2327, Until Discontinu ed, Routine, Constipati on docusate 2020-11- No [id number] 100mg Take 1 Univers 100 mg 2-12 12-28 capsule by ity of capsule 00:00: 05:59 mouth 2 [place] 00 :00 (two) Medical times Branch daily for 15 days. docusate 2020-11- No [id number] 100mg Take 1 Univers 100 mg 2-12 12-28 capsule by ity of capsule 00:00: 05:59 mouth 2 [place] 00 :00 (two) Medical times Branch daily for 15 days. citalopram 2020-11 Yes 20mg 20 mg, Unive rs (CELEXA) 2-10 Oral, ity of tablet 20 15:00: DAILY, [place] mg 00 First dose Medical on [facility] 10/30/21 at 0900, Until Discontinu ed, Routine losartan 2020-11 Yes 100mg 100 mg, Unive rs (COZAAR) 2-10 Oral, ity of tablet 100 15:00: DAILY, [place] mg 00 First dose Medical on [facility] 10/30/21 at 0900, Until Discontinu ed, Routine aspirin 2020-11 Yes 81mg 81 mg, Univers chewable 2-10 Oral, ity of tablet 81 15:00: DAILY, [place] mg 00 First dose Medical on [facility] 10/30/21 at 0900, Until Discontinu ed, Routine amLODIPine 2020-11 Yes 10mg 10 mg, Unive rs (NORVASC) 2-10 Oral, ity of tablet 10 15:00: DAILY, [place] mg 00 First dose Medical on Tue [place] 10/30/21 at 0900, Until Discontinu ed, Routine ondansetron 2020-11 Yes 4mg 4 mg, Slow Univers (ZOFRAN 2-10 IV Push, ity of (PF)) 02:25: Q6[place]id[place], [place] injection 4 58 Starting Medi deysi mg on [facility] 10/29/21 at 2024, Until Discontinu ed, Routine, Nausea and Vomiting (N/V) morpHINE 2020-11 Yes 2mg 2 mg, Slow Uni vers injection 2 2-10 IV Push, ity of mg 02:25: Q4HPRN, [place] 39 Starting Medical on [facility] 10/29/21 at 2024, Until Discontinu ed, Routine, Pain (scale 7-10) traMADoL 2020-11 Yes 50mg 50 mg, Univers (ULTRAM) 2-10 Oral, ity of tablet 50 02:25: Q6HPRN, [place] mg 35 Starting Medical on [facility] 10/29/21 at 2024, Until Discontinu ed, Routine, Pain (scale 4-6) acetaminoph 2020-11 Yes 650mg 650 mg, Un moises en 2-10 Oral, ity of (TYLENOL) 02:25: Q6[place], [place] tablet 650 31 Starting Medic al mg on [facility] 10/29/21 at 2024, Until Discontinu ed, Routine, Pain (scale 1-3) lactated 2020-11 No 1000mL at 150 Univ ers ringers IV 2-10 12-12 mL/hr, ity of infusion 02:15: 01:04 1,000 mL, [place] 1,000 mL 00 :08 IV Medical Infusion, Branch CONTINUOUS , Starting on [facility] 10/29/21 at 2015, Until 10/31/21 at 1904, Routine docusate 2020-11 Yes 100mg 100 mg, Unive rs (COLACE) 2-10 Oral, BID, ity o f capsule 100 02:00: First dose [place] mg 00 on [facility] 10/29/21 at Branch 1999, Until Discontinu ed, Routine hydrALAZINE 2020-11 Yes 10mg 10 mg, Univ ers (APRESOLINE 2-10 Oral, BID, it y of ) tablet 10 02:00: First dose [place] mg 00 on [facility] 10/29/21 at Branch 1999, Until Discontinu ed, Routine fluticasone 2020-11 Yes 1{puff} 1 Puff, Univers propion-tigist 2-10 Inhalation it y of meteroL 02:00: , Q12H, [place] (ADVAIR) 00 First dose Medic al 250-50 on [facility] mcg/dose 10/29/21 at inhalation 1999, disk 1 Puff Until Discontinu ed, Routine
Use approved by (Faculty and pager): ADC PROVIDER labetaloL 2020-11 Yes 100mg 100 mg, Univ ers (NORMODYNE) 2-10 Oral, ity of tablet 100 02:00: Q12H, [place] mg 00 First dose Medical on [facility] 10/29/21 at 2000, Until Discontinu ed NaCl 0.9% 2020-11 No 1000mL at 100 Uni vers (NS) IV 2-10 12-10 mL/hr, ity of infusion 00:00: 01:11 Intravenou [place] 1,000 mL 00 :05 s, Medical CONTINUOUS [place] , Starting on [facility] 10/29/21 at 1800, Until [facility] 10/29/21 at 1911, Routine enoxaparin 2020-11 Yes 40mg 40 mg, Unive rs (LOVENOX) 2-09 Subcutaneo ity of injection 23:00: [place], DAILY, [place] 40 mg 00 First dose Medical on [facility] 10/29/21 at 1700, Until Discontinu ed, Routine cyclobenzap 2020-11 Yes 10mg 10 mg, Univ ers rine 2-09 Oral, ity of (FLEXERIL) 21:27: TIDPRN, [place] tablet 10 34 Starting Medica l mg on [facility] Branch 10/29/21 at 1527, Until Discontinu ed, Routine, Muscle Spasms baclofen 2020-11 Yes 10mg 10 mg, Univers (LIORESAL) 2-09 Oral, ity of tablet 10 21:26: TIDPRN, [place] mg 22 Starting Medical on [facility] Branch 10/29/21 at 1526, Until Discontinu ed, Routine, Pain (scale 7-10) albuterol 2020-11 Yes 2{puff} 2 Puff, Un moises (VENTOLIN) 2 Inhalation ity of inhaler 2 21:26: , Q4HPRN, [place] Puff 03 Starting Medical on [facility] Branch 10/29/21 at 1526, Until Discontinu ed, Routine, Wheezing, Shortness of Breath iopamidol 2020-11- No [id number] 120mL 120 mL, Univers (ISOVUE 12-30 Intravenou ity o f 370-500 mL) 16:30: 16:22 s, ONCE, 1 [place] injection 00 :00 dose, On Medica l 120 mL [facility] Branch 10/29/21 at 1030, Routine morpHINE 2020-11- No 4mg 4 mg, Slow Un moises injection 4 12-30 IV Push, ity of mg 15:45: 18:58 ONCE, 1 00 :00 dose, On Medical [facility] 10/29/21 at 0945, STAT morpHINE 2020-11- No 4mg 4 mg, Slow Un moises injection 4 12-27 IV Push, ity of mg 07:00: 05:53 ONCE, 1 00 :00 dose, On [facility] Branch 10/26/21 at 0100, STAT hydrALAZINE 2020-11 Yes [id number] 10mg Take 1 Univers 10 mg 2-06 tablet by ity of tablet 00:00: mouth 2 00 (two) Medical times Branch daily. metoprolol 2020-11 Yes [id number] 50mg Take 1 Univers tartrate 50 2-06 tablet by ity of mg tablet 00:00: mouth 2 00 (two) Medical times Branch daily. amLODIPine 2020-11 Yes [id number] 10mg Take 1 Univers 10 mg 2-06 tablet by ity of tablet 00:00: mouth [place] 00 daily. Medical Branch losartan 2020-11 Yes [id number] 100mg Take 1 U nivers 100 mg 2-06 tablet by ity of tablet 00:00: mouth [place] 00 daily. Medical Branch citalopram 2020-11 Yes [id number] 20mg Take 1 Univers 20 mg 2-06 tablet by ity of tablet 00:00: mouth [place] 00 daily. Medical Branch naproxen 2020-11 Yes [id number] 500mg Take 1 U nivers 500 mg EC 2-06 tablet by ity o f tablet 00:00: mouth 2 00 (two) Medical times Branch daily with meals. metoprolol 2020-11 Yes [id number] 50mg Take 1 Univers tartrate 50 2-06 tablet by ity of mg tablet 00:00: mouth (two) Medical times Branch daily. amLODIPine 2020-11 Yes [id number] 10mg Take 1 Univers 10 mg 2-06 tablet by ity of tablet 00:00: mouth [place] 00 daily. Medical Branch losartan 2020-11 Yes [id number] 100mg Take 1 U nivers 100 mg 2-06 tablet by ity of tablet 00:00: mouth [place] 00 daily. Medical Branch metoprolol 2020-11 Yes [id number] 50mg Take 1 Univers tartrate 50 2-06 tablet by ity of mg tablet 00:00: mouth 00 (two) Medical times Branch daily. amLODIPine 2020-11 Yes [id number] 10mg Take 1 Univers 10 mg 2-06 tablet by ity of tablet 00:00: mouth [place] 00 daily. Medical Branch losartan 2020-11 Yes [id number] 100mg Take 1 U nivers 100 mg 2-06 tablet by ity of tablet 00:00: mouth [place] 00 daily. Medical Branch hydrALAZINE 2020-11- No [id number] 10mg Take 1 Univers 10 mg 2-06 12-12 tablet by ity of tablet 00:00: 00:00 mouth 2 [place] 00 :00 (two) Medical times Branch daily. citalopram 2020-11- No [id number] 20mg Take 1 Univers 20 mg 2-06 12-12 tablet by ity of tablet 00:00: 00:00 mouth 00 :00 daily. Medical Branch naproxen 2020-11- No [id number] 500mg Take 1 Univers 500 mg EC 12-27 tablet by ity of tablet 00:00: 00:00 mouth 2 00 :00 (two) Medical times Branch daily with meals. methylPREDN 2020- No [id number] 80mg U nivers ISolone 07-31 ity of acetate 17:30: 16:18 [place] (DEPO-MEDRO 00 :00 Medical L) 80 mg/mL Branch 80 mg in lidocaine 1% (XYLOCAINE) 4 mL injection methylPREDN 2020- No [id number] 80mg 80 mg, Univers ISolone 07-31 Intramuscu ity o f acetate 17:30: 16:18 lar, ONCE, [place] (DEPO-MEDRO 00 :00 1 dose, Medic al L) 80 mg/mL Fri Branch 80 mg in 07/31/21 at lidocaine 1230, 4 mL 1% (XYLOCAINE) 4 mL injection methylPREDN 2020- No [id number] 80mg U nivers ISolone 07-31 ity of acetate 17:30: 16:18 [place] (DEPO-MEDRO 00 :00 Medical L) 80 mg/mL Branch 80 mg in lidocaine 1% (XYLOCAINE) 4 mL injection methylPREDN 2020- No [id number] 80mg 80 mg, Univers ISolone 07-31 Intramuscu ity o f acetate 17:30: 16:18 lar, ONCE, [place] (DEPO-MEDRO 00 :00 1 dose, Medic al L) 80 mg/mL Fri Branch 80 mg in 07/31/21 at lidocaine 1230, 4 mL 1% (XYLOCAINE) 4 mL injection methylPREDN 2020- No [id number] 80mg U nivers ISolone 07-31 ity of acetate 17:30: 16:18 [place] (DEPO-MEDRO 00 :00 Medical L) 80 mg/mL Branch 80 mg in lidocaine 1% (XYLOCAINE) 4 mL injection methylPREDN 2020- No [id number] 80mg 80 mg, Univers ISolone 07-31 Intramuscu ity o f acetate 17:30: 16:18 lar, ONCE, [place] (DEPO-MEDRO 00 :00 1 dose, Medic al L) 80 mg/mL Fri Branch 80 mg in 07/31/21 at lidocaine 1230, 4 mL 1% (XYLOCAINE) 4 mL injection methylPREDN 2020- No [id number] 80mg U nivers ISolone 07-31 ity of acetate 17:30: 16:18 [place] (DEPO-MEDRO 00 :00 Medical L) 80 mg/mL Branch 80 mg in lidocaine 1% (XYLOCAINE) 4 mL injection methylPREDN 0 2020- No [id number] 80mg 80 mg, Univers ISolone 07-31 Intramuscu ity o f acetate 17:30: 16:18 lar, ONCE, [place] (DEPO-MEDRO 00 :00 1 dose, Medic al L) 80 mg/mL Fri Branch 80 mg in 07/31/21 at lidocaine 1230, 4 mL 1% (XYLOCAINE) 4 mL injection naproxen 2020-0 Yes [id number] 500mg Take 1 U nivers 500 mg 7-29 tablet by ity of tablet 00:00: mouth (two) Medical times Branch daily with meals. cyclobenzap 2020-0 Yes [id number] 10mg Take 1 Univers rine 10 mg 7-29 tablet by ity of tablet 00:00: mouth 3 (three) Medical times Branch daily as needed for Muscle Spasms. naproxen 2020-0 Yes [id number] 500mg Take 1 U nivers 500 mg 7-29 tablet by ity of tablet 00:00: mouth 2 (two) Medical times Branch daily with meals. cyclobenzap 2020-0 Yes [id number] 10mg Take 1 Univers rine 10 mg 7-29 tablet by ity of tablet 00:00: mouth 3 (three) Medical times Branch daily as needed for Muscle Spasms. naproxen 1-0 Yes [id number] 500mg Take 1 U nivers 500 mg 7-29 tablet by ity of tablet 00:00: mouth 2 (two) Medical times Branch daily with meals. cyclobenzap 2020-0 Yes [id number] 10mg Take 1 Univers rine 10 mg 7-29 tablet by ity of tablet 00:00: mouth 3 (three) Medical times Branch daily as needed for Muscle Spasms. naproxen 1-0 Yes [id number] 500mg Take 1 U nivers 500 mg 7-29 tablet by ity of tablet 00:00: mouth 2 (two) Medical times Branch daily with meals. cyclobenzap 2020-0 Yes [id number] 10mg Take 1 Univers rine 10 mg 7-29 tablet by ity of tablet 00:00: mouth 3 (three) Medical times Branch daily as needed for Muscle Spasms. naproxen 2021-0 Yes [id number] 500mg Take 1 U nivers 500 mg 7-29 tablet by ity of tablet 00:00: mouth 2 (two) Medical times Branch daily with meals. naproxen 2020-0 Yes [id number] 500mg Take 1 U nivers 500 mg 7-29 tablet by ity of tablet 00:00: mouth (two) Medical times Branch daily with meals. cyclobenzap 2020-0 Yes [id number] 10mg Take 1 Univers rine 10 mg 7-29 tablet by ity of tablet 00:00: mouth 3 (three) Medical times Branch daily as needed for Muscle Spasms. cyclobenzap 2020-0 Yes [id number] 10mg Take 1 Univers rine 10 mg 7-29 tablet by ity of tablet 00:00: mouth 3 (three) Medical times Branch daily as needed for Muscle Spasms. naproxen 1-0 Yes [id number] 500mg Take 1 U nivers 500 mg 7-29 tablet by ity of tablet 00:00: mouth (two) Medical times Branch daily with meals. cyclobenzap 1-0 Yes [id number] 10mg Take 1 Univers rine 10 mg 7-29 tablet by ity of tablet 00:00: mouth 3 (three) Medical times Branch daily as needed for Muscle Spasms. naproxen 1-0 Yes [id number] 500mg Take 1 U nivers 500 mg 7-29 tablet by ity of tablet 00:00: mouth 2 (two) Medical times Branch daily with meals. cyclobenzap 2021-0 Yes [id number] 10mg Take 1 Univers rine 10 mg 7-29 tablet by ity of tablet 00:00: mouth 3 (three) Medical times Branch daily as needed for Muscle Spasms. naproxen 1-0 Yes [id number] 500mg Take 1 U nivers 500 mg 7-29 tablet by ity of tablet 00:00: mouth 2 00 (two) Medical times Branch daily with meals. cyclobenzap 2020-0 Yes [id number] 10mg Take 1 Univers rine 10 mg 7-29 tablet by ity of tablet 00:00: mouth 3 00 (three) Medical times Branch daily as needed for Muscle Spasms. naproxen 202-0 Yes [id number] 500mg Take 1 U nivers 500 mg 7-29 tablet by ity of tablet 00:00: mouth 2 (two) Medical times Branch daily with meals. cyclobenzap 2020-0 Yes [id number] 10mg Take 1 Univers rine 10 mg 7-29 tablet by ity of tablet 00:00: mouth 3 (three) Medical times Branch daily as needed for Muscle Spasms. naproxen 2020-0 Yes [id number] 500mg Take 1 U nivers 500 mg 7-29 tablet by ity of tablet 00:00: mouth 2 (two) Medical times Branch daily with meals. cyclobenzap 2020-0 Yes [id number] 10mg Take 1 Univers rine 10 mg 7-29 tablet by ity of tablet 00:00: mouth 3 00 (three) Medical times Branch daily as needed for Muscle Spasms. aspirin 81 2020-0 Yes 81mg Take 81 mg U nivers mg chewable 7-08 by mouth ity of tablet 18:55: daily. [address] Branch vitamin B 202-0 Yes Take by Univ ers complex (B 7-08 mouth ity of COMPLEX-VIT 18:55: [facility]. [facility] Medical ORAL) Branch aspirin 81 2020-0 Yes 81mg Take 81 mg U nivers mg chewable 7-08 by mouth ity of tablet 18:55: daily. [address] vitamin B 202-0 Yes Take by Univ ers complex (B 7-08 mouth ity of COMPLEX-VIT 18:55: daily. [facility] B12 [facility] Medical ORAL) Branch aspirin 81 202-0 Yes 81mg Take 81 mg U nivers mg chewable 7-08 by mouth ity of tablet 18:55: daily. [address] Branch vitamin B Yes Take by Univ ers complex (B 7-08 mouth ity of COMPLEX-VIT 18:55: daily. [place] catracho LEON B12 41 Medical ORAL) Branch aspirin 81 2020-0 Yes 81mg Take 81 mg U nivers mg chewable 7-08 by mouth ity of tablet 18:55: daily. [address] Branch vitamin B 2020- Yes Take by Univ ers complex (B 7-08 mouth ity of COMPLEX-VIT 18:55: daily. [facility] s LEON B12 41 Medical ORAL) Branch aspirin 81 2020-0 Yes 81mg Take 81 mg U nivers mg chewable 7-08 by mouth ity of tablet 18:55: daily. [address] vitamin B Yes Take by Univ ers complex (B 7-08 mouth ity of COMPLEX-VIT 18:55: daily. [facility] s LEON B12 41 Medical ORAL) Branch aspirin 81 2020-0 Yes 81mg Take 81 mg U nivers mg chewable 7-08 by mouth ity of tablet 18:55: daily. [address] Branch vitamin B Yes Take by Univ ers complex (B 7-08 mouth ity of COMPLEX-VIT 18:55: daily. [facility] catracho LEON B12 41 Medical ORAL) Branch aspirin 81 2020-0 Yes 81mg Take 81 mg U nivers mg chewable 7-08 by mouth ity of tablet 18:55: daily. [address] Branch vitamin B 2020- Yes Take by Univ ers complex (B 7-08 mouth ity of COMPLEX-VIT 18:55: daily. [facility] catracho LEON B12 41 Medical ORAL) Branch aspirin 81 2020-0 Yes 81mg Take 81 mg U nivers mg chewable 7-08 by mouth ity of tablet 18:55: daily. [address] Branch vitamin B 2020- Yes Take by Univ ers complex (B 7-08 mouth ity of COMPLEX-VIT 18:55: [facility] Branch aspirin 81 [...] by mouth ity of tablet 13:55: daily. [address] Branch vitamin B Yes Take by Univ ers complex (B 7-08 mouth ity of COMPLEX-VIT 13:55: daily. Sowmya hayden LEON B12 41 Medical ORAL) Branch aspirin 81 Yes 81mg Take 81 mg U nivers mg chewable 7-08 by mouth ity of tablet 13:55: daily. [address] Branch vitamin B Yes Take by Univ ers complex (B 7-08 mouth ity of COMPLEX-VIT 13:55: daily. Sowmya hayden LEON B12 41 Medical ORAL) Branch aspirin 81 2020- Yes 81mg Take 81 mg U nivers mg chewable 7-08 by mouth ity of tablet 13:55: daily. [address] Branch vitamin B Yes Take by Univ ers complex (B 7-08 mouth ity of COMPLEX-VIT 13:55: daily. Sowmya hayden LEON B12 41 Medical ORAL) Branch aspirin 81 Yes 81mg Take 81 mg U nivers mg chewable 7-08 by mouth ity of tablet 13:55: daily. [address] Branch vitamin B Yes Take by Univ ers complex (B 7-08 mouth ity of COMPLEX-VIT 13:55: daily. Sowmya hayden LEON B12 41 Medical ORAL) Branch aspirin 81 2020-0 Yes 81mg Take 81 mg U nivers mg chewable 7-08 by mouth ity of tablet 13:55: daily. [address] Branch vitamin B Yes Take by Univ ers complex (B 7-08 mouth ity of COMPLEX-VIT 13:55: daily. Sowmya hayden LEON B12 41 Medical ORAL) Branch bromphenira Yes [id number] 5mL Take 5 mL Univers mine-pseudo 7-08 by mouth 4 it y of ephedrine-D 00:00: (four) Sowmya Levin (BROMFED 00 times Medical DM) 2-30-10 daily as Bran ch mg/5 mL needed for syrup Congestion /Allergies or Cough. albuterol Yes [id number] 2{puff} Inhale 2 Univers (PROAIR 7-08 Puffs ity of HFA) 90 00:00: every 4 [place] mcg/actuati 00 (four) Medica l on inhaler hours as Branc h needed for Wheezing or Shortness of Breath. Use 1 puff by mouth every 4 to 6 hours as needed for wheezing fluticasone 0 Yes [id number] 1{puff} Inhale 1 Univers propion-tigist 7-08 Puff every it y of meteroL 00:00: 12 [place] (ADVAIR 00 (twelve) Medical DISKUS) hours. Branch 250-50 mcg/dose inhalation disk carvedilol 0 Yes [id number] 80mg Take 1 U nivers (COREG CR) 7-08 capsule by ity of 80 mg 24 hr 00:00: mouth [place] capsule 00 daily. Medical Branch bromphenira 0 Yes [id number] 5mL Take 5 mL Univers mine-pseudo 7-08 by mouth 4 it y of ephedrine-D 00:00: (four) [place] (BROMFED 00 times Medical DM) 2-30-10 daily as Bran ch mg/5 mL needed for syrup Congestion /Allergies or Cough. albuterol Yes [id number] 2{puff} Inhale 2 Univers (PROAIR 7-08 Puffs ity of HFA) 90 00:00: every 4 [place] mcg/actuati 00 (four) Medica l on inhaler hours as Branc h needed for Wheezing or Shortness of Breath. Use 1 puff by mouth every 4 to 6 hours as needed for wheezing fluticasone 2020-0 Yes [id number] 1{puff} Inhale 1 Univers propion-tigist 7-08 Puff every it y of meteroL 00:00: 12 [place] (ADVAIR 00 (twelve) Medical DISKUS) hours. Branch 250-50 mcg/dose inhalation disk carvedilol 0 Yes [id number] 80mg Take 1 U nivers (COREG CR) 7-08 capsule by ity of 80 mg 24 hr 00:00: mouth [place] capsule 00 daily. Medical Branch bromphenira 2020-0 Yes [id number] 5mL Take 5 mL Univers mine-pseudo 7-08 by mouth 4 it y of ephedrine-D 00:00: (four) [place] (BROMFED 00 times Medical DM) 2-30-10 daily as Bran ch mg/5 mL needed for syrup Congestion /Allergies or Cough. albuterol Yes [id number] 2{puff} Inhale 2 Univers (PROAIR 7-08 Puffs ity of HFA) 90 00:00: every 4 [place] mcg/actuati 00 (four) Medica l on inhaler hours as Branc h needed for Wheezing or Shortness of Breath. Use 1 puff by mouth every 4 to 6 hours as needed for wheezing fluticasone Yes [id number] 1{puff} Inhale 1 Univers propion-tigist 7-08 Puff every it y of meteroL 00:00: 12 [place] (ADVAIR 00 (twelve) Medical DISKUS) hours. Branch 250-50 mcg/dose inhalation disk carvedilol Yes [id number] 80mg Take 1 U nivers (COREG CR) 7-08 capsule by ity of 80 mg 24 hr 00:00: mouth [place] capsule 00 daily. Medical Branch bromphenira Yes [id number] 5mL Take 5 mL Univers mine-pseudo 7-08 by mouth 4 it y of ephedrine-D 00:00: (four) [place] (BROMFED 00 times Medical DM) 2-30-10 daily as Bran ch mg/5 mL needed for syrup Congestion /Allergies or Cough. albuterol Yes [id number] 2{puff} Inhale 2 Univers (PROAIR 7-08 Puffs ity of HFA) 90 00:00: every 4 [place] mcg/actuati 00 (four) Medica l on inhaler hours as Branc h needed for Wheezing or Shortness of Breath. Use 1 puff by mouth every 4 to 6 hours as needed for wheezing fluticasone 0 Yes [id number] 1{puff} Inhale 1 Univers propion-tigist 7-08 Puff every it y of meteroL 00:00: 12 [place] (ADVAIR 00 (twelve) Medical DISKUS) hours. Branch 250-50 mcg/dose inhalation disk carvedilol 0 Yes [id number] 80mg Take 1 U nivers (COREG CR) 7-08 capsule by ity of 80 mg 24 hr 00:00: mouth [place] capsule 00 daily. Medical Branch bromphenira Yes [id number] 5mL Take 5 mL Univers mine-pseudo 7-08 by mouth 4 it y of ephedrine-D 00:00: (four) [place] M (BROMFED 00 times Medical DM) 2-30-10 daily as Bran ch mg/5 mL needed for syrup Congestion /Allergies or Cough. albuterol Yes [id number] 2{puff} Inhale 2 Univers (PROAIR 7-08 Puffs ity of HFA) 90 00:00: every 4 [place] mcg/actuati 00 (four) Medica l on inhaler hours as Branc h needed for Wheezing or Shortness of Breath. Use 1 puff by mouth every 4 to 6 hours as needed for wheezing fluticasone Yes [id number] 1{puff} Inhale 1 Univers propion-tigist 7-08 Puff every it y of meteroL 00:00: 12 [place] (ADVAIR (twelve) Medical DISKUS) hours. Branch 250-50 mcg/dose inhalation disk carvedilol Yes [id number] 80mg Take 1 U nivers (COREG CR) 7-08 capsule by ity of 80 mg 24 hr 00:00: mouth [place] capsule 00 daily. Medical Branch bromphenira Yes [id number] 5mL Take 5 mL Univers mine-pseudo 7-08 by mouth 4 it y of ephedrine-D 00:00: (four) [place] (BROMFED 00 times Medical DM) 2-30-10 daily as Bran ch mg/5 mL needed for syrup Congestion /Allergies or Cough. albuterol Yes [id number] 2{puff} Inhale 2 [facility] (PROAIR 7-08 Puffs ity of HFA) 90 00:00: every 4 [place] mcg/actuati 00 (four) Medica l on inhaler hours as Branc h needed for Wheezing or Shortness of Breath. Use 1 puff by mouth every 4 to 6 hours as needed for wheezing fluticasone 0 Yes [id number] 1{puff} Inhale 1 [facility] propion-tigist 7-08 Puff every it y of meteroL 00:00: 12 [place] (ADVAIR 00 (twelve) Medical DISKUS) hours. Branch 250-50 mcg/dose inhalation disk carvedilol 2020-0 Yes [id number] 80mg Take 1 [facility] n[facility] (COREG CR) 7-08 capsule by ity of 80 mg 24 hr 00:00: mouth [place] capsule 00 daily. Medical Branch bromphenira 0 Yes [id number] 5mL Take 5 mL [facility] mine-pseudo 7-08 by mouth 4 it y of ephedrine-D 00:00: (four) [place] [facility] (BROMFED 00 times Medical DM) 2-30-10 daily as Bran ch mg/5 mL needed for syrup Congestion /Allergies or Cough. albuterol Yes [id number] 2{puff} Inhale 2 [facility] (PROAIR 7-08 Puffs ity of HFA) 90 00:00: every 4 [place] mcg/actuati 00 (four) Medica l on inhaler hours as Branc h needed for Wheezing or Shortness of Breath. Use 1 puff by mouth every 4 to 6 hours as needed for wheezing fluticasone 0 Yes [id number] 1{puff} Inhale 1 [facility] propion-tigist 7-08 Puff every it y of meteroL 00:00: 12 [place] (ADVAIR 00 (twelve) Medical DISKUS) hours. Branch 250-50 mcg/dose inhalation disk carvedilol 0 Yes [id number] 80mg Take 1 [facility] n[facility] (COREG CR) 7-08 capsule by ity of 80 mg 24 hr 00:00: mouth [place] capsule 00 daily. Medical Branch bromphenira 0 Yes [id number] 5mL Take 5 mL [facility] mine-pseudo 7-08 by mouth 4 it y of ephedrine-D 00:00: (four) [place] (BROMFED 00 times Medical DM) 2-30-10 daily as Bran ch mg/5 mL needed for syrup Congestion /Allergies or Cough. albuterol 0 Yes [id number] 2{puff} Inhale 2 [facility] (PROAIR 7-08 Puffs ity of HFA) 90 00:00: every 4 [place] mcg/actuati 00 (four) Medica l on inhaler hours as Branc h needed for Wheezing or Shortness of Breath. Use 1 puff by mouth every 4 to 6 hours as needed for wheezing fluticasone 2020-0 Yes [id number] 1{puff} Inhale 1 [facility] propion-tigist 7-08 Puff every it y of meteroL 00:00: 12 [place] (ADVAIR 00 (twelve) Medical DISKUS) hours. Branch 250-50 mcg/dose inhalation disk bromphenira 2020-0 Yes [id number] 5mL Take 5 mL [facility] mine-pseudo 7-08 by mouth 4 it y of ephedrine-D 00:00: (four) [place] (BROMFED 00 times Medical DM) 2-30-10 daily as Bran ch mg/5 mL needed for syrup Congestion /Allergies or Cough. albuterol 2020- Yes [id number] 2{puff} Inhale 2 [facility] (PROAIR 7-08 Puffs ity of HFA) 90 00:00: every 4 [place] mcg/actuati 00 (four) Medica l on inhaler hours as Branc h needed for Wheezing or Shortness of Breath. Use 1 puff by mouth every 4 to 6 hours as needed for wheezing fluticasone 2020-0 Yes [id number] 1{puff} Inhale 1 [facility] propion-tigist 7-08 Puff every it y of meteroL 00:00: 12 [place] (ADVAIR 00 (twelve) Medical DISKUS) hours. Branch 250-50 mcg/dose inhalation disk carvedilol 2020-0 Yes [id number] 80mg Take 1 [facility] n[facility] (COREG CR) 7-08 capsule by ity of 80 mg 24 hr 00:00: mouth [place] capsule 00 daily. Medical Branch carvedilol 2020-0 Yes [id number] 80mg Take 1 [facility] (COREG CR) 7-08 capsule by ity of 80 mg 24 hr 00:00: mouth [place] capsule 00 daily. Medical Branch bromphenira 2020-0 Yes [id number] 5mL Take 5 mL [facility] mine-pseudo 7-08 by mouth 4 it y of ephedrine-D 00:00: (four) [place] (BROMFED 00 times Medical DM) 2-30-10 daily as Bran ch mg/5 mL needed for syrup Congestion /Allergies or Cough. albuterol 2020-0 Yes [id number] 2{puff} Inhale 2 [facility] (PROAIR 7-08 Puffs ity of HFA) 90 00:00: every 4 [place] mcg/actuati 00 (four) Medica l on inhaler hours as Branc h needed for Wheezing or Shortness of Breath. Use 1 puff by mouth every 4 to 6 hours as needed for wheezing fluticasone 2020-0 Yes [id number] 1{puff} Inhale 1 [facility] propion-tigist 7-08 Puff every it y of meteroL 00:00: 12 [place] (ADVAIR 00 (twelve) Medical DISKUS) hours. Branch 250-50 mcg/dose inhalation disk carvedilol 0 Yes [id number] 80mg Take 1 [facility] n[facility] (COREG CR) 7-08 capsule by ity of 80 mg 24 hr 00:00: mouth [place] capsule 00 daily. Medical Branch bromphenira 0 Yes [id number] 5mL Take 5 mL [facility] mine-pseudo 7-08 by mouth 4 it y of ephedrine-D 00:00: (four) [place] [facility] (BROMFED 00 times Medical DM) 2-30-10 daily as Bran ch mg/5 mL needed for syrup Congestion /Allergies or Cough. albuterol 0 Yes [id number] 2{puff} Inhale 2 [facility] (PROAIR 7-08 Puffs ity of HFA) 90 00:00: every 4 [place] mcg/actuati 00 (four) Medica l on inhaler hours as Branc h needed for Wheezing or Shortness of Breath. Use 1 puff by mouth every 4 to 6 hours as needed for wheezing fluticasone 2020-0 Yes [id number] 1{puff} Inhale 1 [facility] propion-tigist 7-08 Puff every it y of meteroL 00:00: 12 [place] (ADVAIR 00 (twelve) Medical DISKUS) hours. Branch 250-50 mcg/dose inhalation disk carvedilol 2020-0 Yes [id number] 80mg Take 1 [facility] (COREG CR) 7-08 capsule by ity of 80 mg 24 hr 00:00: mouth [place] capsule 00 daily. Medical Branch bromphenira 2020-0 Yes [id number] 5mL Take 5 mL [facility] mine-pseudo 7-08 by mouth 4 it y of ephedrine-D 00:00: (four) [place] [facility] (BROMFED 00 times Medical DM) 2-30-10 daily as Bran ch mg/5 mL needed for syrup Congestion /Allergies or Cough. albuterol Yes [id number] 2{puff} Inhale 2 [facility] (PROAIR 7-08 Puffs ity of HFA) 90 00:00: every 4 [place] mcg/actuati 00 (four) Medica l on inhaler hours as Branc h needed for Wheezing or Shortness of Breath. Use 1 puff by mouth every 4 to 6 hours as needed for wheezing fluticasone Yes [id number] 1{puff} Inhale 1 [facility] propion-tigist 7-08 Puff every it y of meteroL 00:00: 12 [place] (ADVAIR 00 (twelve) Medical DISKUS) hours. Branch 250-50 mcg/dose inhalation disk carvedilol Yes [id number] 80mg Take 1 [facility] (COREG CR) 7-08 capsule by ity of 80 mg 24 hr 00:00: mouth [place] capsule 00 daily. Medical Branch bromphenira Yes [id number] 5mL Take 5 mL [facility] mine-pseudo 7-08 by mouth 4 it y of ephedrine-D 00:00: (four) [place] [facility] (BROMFED 00 times Medical DM) 2-30-10 daily as Bran ch mg/5 mL needed for syrup Congestion /Allergies or Cough. albuterol Yes [id number] 2{puff} Inhale 2 [facility] (PROAIR 7-08 Puffs ity of HFA) 90 00:00: every 4 [place] mcg/actuati 00 (four) Medica l on inhaler hours as Branc h needed for Wheezing or Shortness of Breath. Use 1 puff by mouth every 4 to 6 hours as needed for wheezing fluticasone Yes [id number] 1{puff} Inhale 1 [facility] propion-tigist 7-08 Puff every it y of meteroL 00:00: 12 [place] (ADVAIR 00 (twelve) Medical DISKUS) hours. Branch 250-50 mcg/dose inhalation disk carvedilol Yes [id number] 80mg Take 1 [facility] (COREG CR) 7-08 capsule by ity of 80 mg 24 hr 00:00: mouth [place] capsule 00 daily. Medical Branch bromphenira Yes [id number] 5mL Take 5 mL [facility] mine-pseudo 7-08 by mouth 4 it y of ephedrine-D 00:00: (four) [place] [facility] (BROMFED 00 times Medical DM) 2-30-10 daily as Bran ch mg/5 mL needed for syrup Congestion /Allergies or Cough. albuterol 0 Yes [id number] 2{puff} Inhale 2 [facility] (PROAIR 7-08 Puffs ity of HFA) 90 00:00: every 4 [place] mcg/actuati 00 (four) Medica l on inhaler hours as Branc h needed for Wheezing or Shortness of Breath. Use 1 puff by mouth every 4 to 6 hours as needed for wheezing fluticasone 2020-0 Yes [id number] 1{puff} Inhale 1 [facility] propion-tigist 7-08 Puff every it y of meteroL 00:00: 12 [place] (ADVAIR 00 (twelve) Medical DISKUS) hours. Branch 250-50 mcg/dose inhalation disk carvedilol 2020-0 Yes [id number] 80mg Take 1 [facility] (COREG CR) 7-08 capsule by ity of 80 mg 24 hr 00:00: mouth [place] capsule 00 daily. Medical Branch bromphenira 2020-0 Yes [id number] 5mL Take 5 mL [facility] mine-pseudo 7-08 by mouth 4 it y of ephedrine-D 00:00: (four) [place] [facility] (BROMFED 00 times Medical DM) 2-30-10 daily as Bran ch mg/5 mL needed for syrup Congestion /Allergies or Cough. albuterol 0 Yes [id number] 2{puff} Inhale 2 [facility] (PROAIR 7-08 Puffs ity of HFA) 90 00:00: every 4 [place] mcg/actuati 00 (four) Medica l on inhaler hours as Branc h needed for Wheezing or Shortness of Breath. Use 1 puff by mouth every 4 to 6 hours as needed for wheezing fluticasone 2020-0 Yes [id number] 1{puff} Inhale 1 [facility] propion-tigist 7-08 Puff every it y of meteroL 00:00: 12 [place] (ADVAIR 00 (twelve) Medical DISKUS) hours. Branch 250-50 mcg/dose inhalation disk carvedilol 2020-0 Yes [id number] 80mg Take 1 [facility] (COREG CR) 7-08 capsule by ity of 80 mg 24 hr 00:00: mouth [place] capsule 00 daily. Medical Branch predniSONE 2020-2020- No [id number] 20mg Take 1 [facility] 20 mg 05-28-16 tablet by ity of tablet 00:00: 04:59 mouth 2 [place] 00 :00 (two) Medical times Branch daily for 7 days. predniSONE 2020-0 2020- No [id number] 20mg Take 1 [facility] 20 mg 05-28-16 tablet by ity of tablet 00:00: 04:59 mouth 2 [place] 00 :00 (two) Medical times Branch daily for 7 days. azithromyci Yes [id number] 250mg Take 1 [facility] n 7-06 tablet by ity of (ZITHROMAX 00:00: mouth [place] Z-SHAHID) 250 00 SEE-INSTRU Med ical mg tablet CTIONS. Branch Take 500 mg day 1, then 250 mg days 2 to 5. ibuprofen Yes [id number] 600mg Take 1 [facility] n[facility] 600 mg 7-06 tablet by ity of tablet 00:00: mouth [place] 00 every 6 Medical (six) Branch hours as needed for Pain (scale 4-6). benzonatate Yes [id number] 100mg Take 1 [facility] 100 mg 7-06 capsule by ity of capsule 00:00: mouth 3 [place] 00 (three) Medical times Branch daily as needed for Cough. azithromyci Yes [id number] 250mg Take 1 [facility] n 7-06 tablet by ity of (ZITHROMAX 00:00: mouth [place] Z-SHAHID) 250 00 SEE-INSTRU Med ical mg tablet CTIONS. Branch Take 500 mg day 1, then 250 mg days 2 to 5. ibuprofen 2020- Yes [id number] 600mg Take 1 [facility] n[facility] 600 mg 7-06 tablet by ity of tablet 00:00: mouth [place] 00 every 6 Medical (six) Branch hours as needed for Pain (scale 4-6). azithromyci 0 Yes [id number] 250mg Take 1 [facility] n 7-06 tablet by ity of (ZITHROMAX 00:00: mouth [place] Z-SHAHID) 250 00 SEE-INSTRU Med ical mg tablet CTIONS. Branch Take 500 mg day 1, then 250 mg days 2 to 5. ibuprofen Yes [id number] 600mg Take 1 [facility] nivers 600 mg 7-06 tablet by ity of tablet 00:00: mouth [place] 00 every 6 Medical (six) Branch hours as needed for Pain (scale 4-6). azithromyci Yes [id number] 250mg Take 1 [facility] n 7-06 tablet by ity of (ZITHROMAX 00:00: mouth [place] Z-SHAHID) 250 00 SEE-INSTRU Med ical mg tablet CTIONS. Branch Take 500 mg day 1, then 250 mg days 2 to 5. ibuprofen Yes [id number] 600mg Take 1 [facility] nivers 600 mg 7-06 tablet by ity of tablet 00:00: mouth [place] 00 every 6 Medical (six) Branch hours as needed for Pain (scale 4-6). azithromyci Yes [id number] 250mg Take 1 [facility] n 7-06 tablet by ity of (ZITHROMAX 00:00: mouth [place] Z-SHAHID) 250 00 SEE-INSTRU Med ical mg tablet CTIONS. Branch Take 500 mg day 1, then 250 mg days 2 to 5. ibuprofen Yes [id number] 600mg Take 1 [facility] nivers 600 mg 7-06 tablet by ity of tablet 00:00: mouth [place] 00 every 6 Medical (six) Branch hours as needed for Pain (scale 4-6). azithromyci Yes [id number] 250mg Take 1 [facility] n 7-06 tablet by ity of (ZITHROMAX 00:00: mouth [place] Z-SHAHID) 250 00 SEE-INSTRU Med ical mg tablet CTIONS. Branch Take 500 mg day 1, then 250 mg days 2 to 5. ibuprofen Yes [id number] 600mg Take 1 [facility] nivers 600 mg 7-06 tablet by ity of tablet 00:00: mouth [place] 00 every 6 Medical (six) Branch hours as needed for Pain (scale 4-6). azithromyci Yes [id number] 250mg Take 1 [facility] n 7-06 tablet by ity of (ZITHROMAX 00:00: mouth [place] Z-SHAHID) 250 00 SEE-INSTRU Med ical mg tablet CTIONS. Branch Take 500 mg day 1, then 250 mg days 2 to 5. ibuprofen Yes [id number] 600mg Take 1 [facility] nivers 600 mg 7-06 tablet by ity of tablet 00:00: mouth [place] 00 every 6 Medical (six) Branch hours as needed for Pain (scale 4-6). azithromyci 0 Yes [id number] 250mg Take 1 [facility] n 7-06 tablet by ity of (ZITHROMAX 00:00: mouth [place] Z-SHAHID) 250 00 SEE-INSTRU Med ical mg tablet CTIONS. Branch Take 500 mg day 1, then 250 mg days 2 to 5. ibuprofen Yes [id number] 600mg Take 1 [facility] nivers 600 mg 7-06 tablet by ity of tablet 00:00: mouth [place] 00 every 6 Medical (six) Branch hours as needed for Pain (scale 4-6). azithromyci Yes [id number] 250mg Take 1 [facility] n 7-06 tablet by ity of (ZITHROMAX 00:00: mouth [place] Z-SHAHID) 250 00 SEE-INSTRU Med ical mg tablet CTIONS. Branch Take 500 mg day 1, then 250 mg days 2 to 5. ibuprofen Yes [id number] 600mg Take 1 [facility] n[facility] 600 mg 7-06 tablet by ity of tablet 00:00: mouth [place] 00 every 6 Medical (six) Branch hours as needed for Pain (scale 4-6). azithromyci Yes [id number] 250mg Take 1 [facility] n 7-06 tablet by ity of (ZITHROMAX 00:00: mouth [place] Z-SHAHID) 250 00 SEE-INSTRU Med ical mg tablet CTIONS. Branch Take 500 mg day 1, then 250 mg days 2 to 5. ibuprofen Yes [id number] 600mg Take 1 [facility] n[facility] 600 mg 7-06 tablet by ity of tablet 00:00: mouth [place] 00 every 6 Medical (six) Branch hours as needed for Pain (scale 4-6). azithromyci 0 Yes [id number] 250mg Take 1 [facility] n 7-06 tablet by ity of (ZITHROMAX 00:00: mouth [place] Z-SHAHID) 250 00 SEE-INSTRU Med ical mg tablet CTIONS. Branch Take 500 mg day 1, then 250 mg days 2 to 5. ibuprofen 0 Yes [id number] 600mg Take 1 [facility] nivers 600 mg 7-06 tablet by ity of tablet 00:00: mouth [place] 00 every 6 Medical (six) Branch hours as needed for Pain (scale 4-6). azithromyci 0 Yes [id number] 250mg Take 1 [facility] n 7-06 tablet by ity of (ZITHROMAX 00:00: mouth [place] Z-SHAHID) 250 00 SEE-INSTRU Med ical mg tablet CTIONS. Branch Take 500 mg day 1, then 250 mg days 2 to 5. ibuprofen Yes [id number] 600mg Take 1 [facility] n[facility] 600 mg 7-06 tablet by ity of tablet 00:00: mouth [place] 00 every 6 Medical (six) Branch hours as needed for Pain (scale 4-6). azithromyci Yes [id number] 250mg Take 1 [facility] n 7-06 tablet by ity of (ZITHROMAX 00:00: mouth [place] Z-SHAHID) 250 00 SEE-INSTRU Med ical mg tablet CTIONS. Branch Take 500 mg day 1, then 250 mg days 2 to 5. ibuprofen Yes [id number] 600mg Take 1 [facility] nivers 600 mg 7-06 tablet by ity of tablet 00:00: mouth [place] 00 every 6 Medical (six) Branch hours as needed for Pain (scale 4-6). azithromyci Yes [id number] 250mg Take 1 [facility] n 7-06 tablet by ity of (ZITHROMAX 00:00: mouth [place] Z-SHAHID) 250 00 SEE-INSTRU Med ical mg tablet CTIONS. Branch Take 500 mg day 1, then 250 mg days 2 to 5. ibuprofen Yes [id number] 600mg Take 1 [facility] nivers 600 mg 7-06 tablet by ity of tablet 00:00: mouth [place] 00 every 6 Medical (six) Branch hours as needed for Pain (scale 4-6). ibuprofen 0 Yes [id number] 600mg Take 1 [facility] nivers 600 mg 7-06 tablet by ity of tablet 00:00: mouth [place] 00 every 6 Medical (six) Branch hours as needed for Pain (scale 4-6). ibuprofen Yes [id number] 600mg Take 1 [facility] n[facility] 600 mg 7-06 tablet by ity of tablet 00:00: mouth [place] 00 every 6 Medical (six) Branch hours as needed for Pain (scale 4-6). azithromyci 2020- No [id number] 250mg Take 1 [facility] n 05-26 12-12 tablet by ity of (ZITHROMAX 00:00: 00:00 mouth [place] Z-SHAHID) 250 00 :00 SEE-INSTRU Med ical mg tablet CTIONS. Branch Take 500 mg day 1, then 250 mg days 2 to 5. benzonatate 2020- No [id number] 100mg Take 1 [facility] 100 mg 05-26 capsule by ity of capsule 00:00: 00:00 mouth 3 [place] 00 :00 (three) Medical times Branch daily as needed for Cough. benzonatate 2020- No [id number] 100mg Take 1 [facility] 100 mg 05-26 capsule by ity of capsule 00:00: 00:00 mouth 3 [place] 00 :00 (three) Medical times Branch daily as needed for Cough. metoprolol Yes [id number] 50mg Take 1 [facility] nivers tartrate 50 6- tablet by ity of mg tablet 00:00: mouth 2 [place] 00 (two) Medical times Branch daily. metoprolol Yes [id number] 50mg Take 1 [facility] n[facility] tartrate 50 6- tablet by ity of mg tablet 00:00: mouth 2 [place] 00 (two) Medical times Branch daily. metoprolol 2020- No [id number] 50mg Take 1 [facility] tartrate 50 -11 27-08 tablet by it y of mg tablet 00:00: 00:00 mouth 2 [place] 00 :[place] (two) Medical times Branch daily. metoprolol 2020- No [id number] 50mg Take 1 [facility] tartrate 50 6-11 27-08 tablet by it y of mg tablet 00:00: 00:00 mouth 2 [place] 00 :00 (two) Medical times Branch daily. methylPREDN 2020- No [id number] 80mg U nivers ISolone 5-17 05-17 ity of acetate 18:45: 17:41 [place] (DEPO-MEDRO 00 :00 Medical L) Branch injection 80 mg methylPREDN 2020- No [id number] 80mg U nivers ISolone 504-06 ity of acetate 18:45: 17:40 [place] (DEPO-MEDRO 00 :00 Medical L) Branch injection 80 mg methylPREDN 2020- No [id number] 80mg 80 mg, [facility] ISolone 04-06 Intramuscu ity o f acetate 18:45: 17:40 [place], [place]CE, [place] (DEPO-MEDRO 00 :00 1 dose, Medic al L) Mon Branch injection 04/06/21 at 80 mg 1345, Routine methylPREDN 2020- No [id number] 80mg 80 mg, [facility] ISolone 04-06 Intramuscu ity o f acetate 18:45: 17:41 [place], [place]CE, [place] (DEPO-MEDRO 00 :00 1 dose, Medic al L) Mon Branch injection 04/06/21 at 80 mg 1345, Routine methylPREDN 2020- No [id number] 80mg U nivers ISolone 04-06 ity of acetate 18:45: 17:41 [place] (DEPO-MEDRO 00 :00 Medical L) Branch injection 80 mg methylPREDN 2020- No [id number] 80mg U nivers ISolone 04-06 ity of acetate 18:45: 17:40 [place] (DEPO-MEDRO 00 :00 Medical L) Branch injection 80 mg methylPREDN 2020- No [id number] 80mg 80 mg, [facility] ISolone 04-06 Intramuscu ity o f acetate 18:45: 17:40 [place], ONCE, [place] (DEPO-MEDRO 00 :00 1 dose, Medic al L) Mon Branch injection 04/06/21 at 80 mg 1345, Routine methylPREDN 2020- No [id number] 80mg 80 mg, [facility] ISolone 504-06 Intramuscu ity o f acetate 18:45: 17:41 [place], ONCE, [place] (DEPO-MEDRO 00 :00 1 dose, Medic al L) Mon Branch injection 04/06/21 at 80 mg 1345, Routine methylPREDN 2020- No [id number] 80mg U nivers ISolone 04-06 ity of acetate 18:45: 17:41 [place] (DEPO-MEDRO 00 :00 Medical L) Branch injection 80 mg methylPREDN 2020- No [id number] 80mg U nivers ISolone 04-06 ity of acetate 18:45: 17:40 [place] (DEPO-MEDRO 00 :00 Medical L) Branch injection 80 mg methylPREDN 2020- No [id number] 80mg 80 mg, [facility] ISolone 04-06 Intramuscu ity o f acetate 18:45: 17:40 [place], ONCE, [place] (DEPO-MEDRO 00 :00 1 dose, Medic al L) Mon Branch injection 04/06/21 at 80 mg 1345, Routine methylPREDN 2020- No [id number] 80mg 80 mg, [facility] ISolone 04-06 Intramuscu ity o f acetate 18:45: 17:41 [place], ONCE, [place] (DEPO-MEDRO 00 :00 1 dose, Medic al L) Mon Branch injection 04/06/21 at 80 mg 1345, Routine AMLODIPINE 0 Yes [id number] Take 1 [facility] nivers 10 mg 4-30 tablet by ity of tablet 00:00: mouth once daily Medical Branch METOPROLOL 2020-0 Yes [id number] Take 1 [facility] nivers TARTRATE 50 4-30 tablet by ity of mg tablet 00:00: mouth twice Medical daily Branch LOSARTAN 2020-0 Yes [id number] Take 1 [facility] vers 100 mg 4-30 tablet by ity of tablet 00:00: mouth once daily Medical Branch AMLODIPINE 2020-0 Yes [id number] Take 1 [facility] nivers 10 mg 4-30 tablet by ity of tablet 00:00: mouth once daily Medical Branch METOPROLOL 2020-0 Yes [id number] Take 1 [facility] nivers TARTRATE 50 4-30 tablet by ity of mg tablet 00:00: mouth twice Medical daily Branch LOSARTAN 2020-0 Yes [id number] Take 1 [facility] vers 100 mg 4-30 tablet by ity of tablet 00:00: mouth once daily Medical Branch AMLODIPINE 2020-0 Yes [id number] Take 1 [facility] nivers 10 mg 4-30 tablet by ity of tablet 00:00: mouth once daily Medical Branch METOPROLOL 2020-0 Yes [id number] Take 1 [facility] nivers TARTRATE 50 4-30 tablet by ity of mg tablet 00:00: mouth twice Medical daily Branch LOSARTAN 2020-0 Yes [id number] Take 1 [facility] vers 100 mg 4-30 tablet by ity of tablet 00:00: mouth once daily Medical Branch AMLODIPINE 2020-0 Yes [id number] Take 1 [facility] nivers 10 mg 4-30 tablet by ity of tablet 00:00: mouth once daily Medical Branch METOPROLOL 2020-0 Yes [id number] Take 1 [facility] nivers TARTRATE 50 4-30 tablet by ity of mg tablet 00:00: mouth twice Medical daily Branch LOSARTAN 2020-0 Yes [id number] Take 1 [facility] vers 100 mg 4-30 tablet by ity of tablet 00:00: mouth once daily Medical Branch AMLODIPINE 2020-0 Yes [id number] Take 1 [facility] nivers 10 mg 4-30 tablet by ity of tablet 00:00: mouth once daily Medical Branch METOPROLOL 2020-0 Yes [id number] Take 1 [facility] nivers TARTRATE 50 4-30 tablet by ity of mg tablet 00:00: mouth twice Medical daily Branch LOSARTAN 2020-0 Yes [id number] Take 1 [facility] vers 100 mg 4-30 tablet by ity of tablet 00:00: mouth once daily Medical Branch AMLODIPINE 2020-0 Yes [id number] Take 1 [facility] nivers 10 mg 4-30 tablet by ity of tablet 00:00: mouth once daily Medical Branch LOSARTAN 2020-0 Yes [id number] Take 1 [facility] vers 100 mg 4-30 tablet by ity of tablet 00:00: mouth once daily Medical Branch AMLODIPINE 2020-0 Yes [id number] Take 1 [facility] nivers 10 mg 4-30 tablet by ity of tablet 00:00: mouth once daily Medical Branch LOSARTAN 2020-0 Yes [id number] Take 1 [facility] vers 100 mg 4-30 tablet by ity of tablet 00:00: mouth once daily Medical Branch AMLODIPINE 2020-0 Yes [id number] Take 1 [facility] nivers 10 mg 4-30 tablet by ity of tablet 00:00: mouth once daily Medical Branch LOSARTAN 2021-0 Yes [id number] Take 1 [facility] vers 100 mg 4-30 tablet by ity of tablet 00:00: mouth once daily Medical Branch AMLODIPINE 2021-0 Yes [id number] Take 1 [facility] nivers 10 mg 4-30 tablet by ity of tablet 00:00: mouth once daily Medical Branch LOSARTAN 2021-0 Yes [id number] Take 1 [facility] vers 100 mg 4-30 tablet by ity of tablet 00:00: mouth once daily Medical Branch AMLODIPINE 202-0 Yes [id number] Take 1 [facility] nivers 10 mg 4-30 tablet by ity of tablet 00:00: mouth once daily Medical Branch LOSARTAN 202-0 Yes [id number] Take 1 [facility] vers 100 mg 4-30 tablet by ity of tablet 00:00: mouth once daily Medical Branch AMLODIPINE 2021-0 Yes [id number] Take 1 [facility] nivers 10 mg 4-30 tablet by ity of tablet 00:00: mouth once daily Medical Branch LOSARTAN 2021-0 Yes [id number] Take 1 [facility] vers 100 mg 4-30 tablet by ity of tablet 00:00: mouth once daily Medical Branch AMLODIPINE 2021-0 Yes [id number] Take 1 [facility] nivers 10 mg 4-30 tablet by ity of tablet 00:00: mouth once daily Medical Branch LOSARTAN 2021-0 Yes [id number] Take 1 [facility] vers 100 mg 4-30 tablet by ity of tablet 00:00: mouth once daily Medical Branch AMLODIPINE 2021-0 Yes [id number] Take 1 [facility] nivers 10 mg 4-30 tablet by ity of tablet 00:00: mouth once daily Medical Branch LOSARTAN 2021-0 Yes [id number] Take 1 [facility] vers 100 mg 4-30 tablet by ity of tablet 00:00: mouth once daily Medical Branch AMLODIPINE 2021-0 Yes [id number] Take 1 [facility] nivers 10 mg 4-30 tablet by ity of tablet 00:00: mouth once daily Medical Branch LOSARTAN 2021-0 Yes [id number] Take 1 [facility] vers 100 mg 4-30 tablet by ity of tablet 00:00: mouth once daily Medical Branch AMLODIPINE 2021-0 Yes [id number] Take 1 [facility] nivers 10 mg 4-30 tablet by ity of tablet 00:00: mouth once daily Medical Branch LOSARTAN 202-0 Yes [id number] Take 1 [facility] vers 100 mg 4-30 tablet by ity of tablet 00:00: mouth once daily Medical Branch AMLODIPINE 2020-0 Yes [id number] Take 1 [facility] nivers 10 mg 4-30 tablet by ity of tablet 00:00: mouth once daily Medical Branch LOSARTAN 2020-0 Yes [id number] Take 1 [facility] vers 100 mg 4-30 tablet by ity of tablet 00:00: mouth once daily Medical Branch AMLODIPINE 2020-0 Yes [id number] Take 1 [facility] nivers 10 mg 4-30 tablet by ity of tablet 00:00: mouth once daily Medical Branch LOSARTAN 2020-0 Yes [id number] Take 1 [facility] vers 100 mg 4-30 tablet by ity of tablet 00:00: mouth once daily Medical Branch AMLODIPINE 2020-0 Yes [id number] Take 1 [facility] nivers 10 mg 4-30 tablet by ity of tablet 00:00: mouth once Medical Branch LOSARTAN 2020-0 Yes [id number] Take 1 [facility] vers 100 mg 4-30 tablet by ity of tablet 00:00: mouth once Medical Branch AMLODIPINE 2020-0 Yes [id number] Take 1 [facility] nivers 10 mg 4-30 tablet by ity of tablet 00:00: mouth once Medical Branch LOSARTAN 2020-0 Yes [id number] Take 1 [facility] vers 100 mg 4-30 tablet by ity of tablet 00:00: mouth once daily Medical Branch AMLODIPINE 2020-0 Yes [id number] Take 1 [facility] nivers 10 mg 4-30 tablet by ity of tablet 00:00: mouth once daily Medical Branch LOSARTAN 1-0 Yes [id number] Take 1 [facility] vers 100 mg 4-30 tablet by ity of tablet 00:00: mouth once daily Medical Branch AMLODIPINE 2020-0 Yes [id number] Take 1 [facility] nivers 10 mg 4-30 tablet by ity of tablet 00:00: mouth once daily Medical Branch LOSARTAN 2020-0 Yes [id number] Take 1 [facility] vers 100 mg 4-30 tablet by ity of tablet 00:00: mouth once daily Medical Branch AMLODIPINE 2021-0 2020- No [id number] Take 1 [facility] 10 mg 4-30 12-12 tablet by ity of tablet 00:00: 00:00 mouth [place] 00 :00 daily [facility] LOSARTAN 2020-2020- No [id number] Take 1 [facility] 100 mg 4-30 12-12 tablet by ity of tablet 00:00: 00:00 mouth [place] 00 :00 daily [facility] METOPROLOL 2020- No [id number] Take 1 [facility] TARTRATE 50 4-30 06- tablet by it y of mg tablet 00:00: 00:00 mouth [place] 00 :00 twice Medical daily Branch aspirin 81 Yes 81mg Take 81 mg [facility] nivers mg chewable 4-05 by mouth ity of tablet 18:55: daily. [address] Branch vitamin B Yes Take by [facility] ers complex (B 4-05 mouth ity of COMPLEX-VIT 18:55: daily. [facility] B12 23 Medical ORAL) Branch aspirin 81 Yes 81mg Take 81 mg U nivers mg chewable 4-05 by mouth ity of tablet 18:55: daily. [address] vitamin B Yes Take by Univ ers complex (B 4-05 mouth ity of COMPLEX-VIT 18:55: daily. [facility] LEON B12 23 Medical ORAL) Branch aspirin 81 2020- Yes 81mg Take 81 mg U nivers mg chewable 4-05 by mouth ity of tablet 18:55: daily. [address] vitamin B Yes Take by Univ ers complex (B 4-05 mouth ity of COMPLEX-VIT 18:55: daily. [facility] B12 23 Medical ORAL) Branch aspirin 81 Yes 81mg Take 81 mg [facility] nivers mg chewable 4-05 by mouth ity of tablet 18:55: daily. [address] vitamin B Yes Take by Univ ers complex (B 4-05 mouth ity of COMPLEX-VIT 18:55: daily. [facility] LEON B12 23 Medical ORAL) Branch aspirin 81 2020- Yes 81mg Take 81 mg [facility] nivers mg chewable 4-05 by mouth ity of tablet 18:55: daily. [address] vitamin B Yes Take by Univ ers complex (B 4-05 mouth ity of COMPLEX-VIT 18:55: daily. [place] [id number] Medical ORAL) Branch aspirin 81 0 Yes 81mg Take 81 mg [facility] nivers mg chewable 4-05 by mouth ity of tablet 18:55: daily. [address] Branch vitamin B Yes Take by [facility] ers complex (B 4-05 mouth ity of COMPLEX-VIT 18:55: daily. [place] [id number] Medical ORAL) Branch aspirin 81 0 Yes 81mg Take 81 mg [facility] nivers mg chewable 4-05 by mouth ity of tablet 18:55: daily. [address] vitamin B Yes Take by Univ ers complex (B 4-05 mouth ity of COMPLEX-VIT 18:55: daily. [place] [id number] Medical ORAL) Branch aspirin 81 2020-0 Yes 81mg Take 81 mg [facility] nivers mg chewable 4-05 by mouth ity of tablet 18:55: daily. [address] vitamin B Yes Take by Univ ers complex (B 4-05 mouth ity of COMPLEX-VIT 18:55: daily. [place] [id number] Medical ORAL) Branch aspirin 81 0 Yes 81mg Take 81 mg [facility] nivers mg chewable 4-05 by mouth ity of tablet 18:55: daily. [address] vitamin B Yes Take by [facility] ers complex (B 4-05 mouth ity of COMPLEX-VIT 18:55: daily. [place] [id number] Medical ORAL) Branch AMLODIPINE 0 Yes [id number] Take 1 [facility] nivers 10 mg 3-15 tablet by ity of tablet 00:00: mouth once daily Medical Branch METOPROLOL 2020-0 Yes [id number] Take 1 [facility] nivers TARTRATE 50 3-15 tablet by ity of mg tablet 00:00: mouth twice Medical daily Branch LOSARTAN 2020-0 Yes [id number] Take 1 Uni vers 100 mg 3-15 tablet by ity of tablet 00:00: mouth once 00 daily Medical Branch HYDRALAZINE 2020-0 Yes [id number] Take 1 [facility] 10 mg 3-15 tablet by ity of tablet 00:00: mouth twice Medical daily Branch citalopram 0 Yes [id number] 20mg Take 1 [facility] nivers 20 mg 3-15 tablet by ity of tablet 00:00: mouth [place] 00 daily. Medical Branch AMLODIPINE 2020-0 Yes [id number] Take 1 [facility]ivers 10 mg 3-15 tablet by ity of tablet 00:00: mouth once [place] 00 daily Medical Branch METOPROLOL 2020-0 Yes [id number] Take 1 [facility] nivers TARTRATE 50 3-15 tablet by ity of mg tablet 00:00: mouth [place] 00 twice Medical daily Branch LOSARTAN 2020-0 Yes [id number] Take 1 [facility] vers 100 mg 3-15 tablet by ity of tablet 00:00: mouth once [place] 00 daily Medical Branch HYDRALAZINE 2020-0 Yes [id number] Take 1 [facility] 10 mg 3-15 tablet by ity of tablet 00:00: mouth [place] 00 twice Medical daily Branch citalopram 0 Yes [id number] 20mg Take 1 [facility] nivers 20 mg 3-15 tablet by ity of tablet 00:00: mouth [place] 00 daily. Medical Branch HYDRALAZINE 2020-0 Yes [id number] Take 1 [facility] 10 mg 3-15 tablet by ity of tablet 00:00: mouth [place] 00 twice Medical daily Branch citalopram 2020-0 Yes [id number] 20mg Take 1 [facility] nivers 20 mg 3-15 tablet by ity of tablet 00:00: mouth [place] 00 daily. Medical Branch HYDRALAZINE 2020-0 Yes [id number] Take 1 [facility] 10 mg 3-15 tablet by ity of tablet 00:00: mouth [place] 00 twice Medical daily Branch citalopram 2020-0 Yes [id number] 20mg Take 1 [facility] nivers 20 mg 3-15 tablet by ity of tablet 00:00: mouth [place] 00 daily. Medical Branch HYDRALAZINE 2020-0 Yes [id number] Take 1 [facility] 10 mg 3-15 tablet by ity of tablet 00:00: mouth [place] 00 twice Medical daily Branch citalopram 2020-0 Yes [id number] 20mg Take 1 [facility] nivers 20 mg 3-15 tablet by ity of tablet 00:00: mouth [place] 00 daily. Medical Branch HYDRALAZINE 2020-0 Yes [id number] Take 1 [facility] 10 mg 3-15 tablet by ity of tablet 00:00: mouth [place] 00 twice Medical daily Branch citalopram 2021-0 Yes [id number] 20mg Take 1 [facility] nivers 20 mg 3-15 tablet by ity of tablet 00:00: mouth [place] 00 daily. Medical Branch HYDRALAZINE 2020-0 Yes [id number] Take 1 [facility] 10 mg 3-15 tablet by ity of tablet 00:00: mouth [place] 00 twice Medical daily Branch citalopram 0 Yes [id number] 20mg Take 1 [facility] nivers 20 mg 3-15 tablet by ity of tablet 00:00: mouth [place] 00 daily. Medical Branch HYDRALAZINE 2020-0 Yes [id number] Take 1 [facility] 10 mg 3-15 tablet by ity of tablet 00:00: mouth [place] 00 twice Medical daily Branch citalopram 0 Yes [id number] 20mg Take 1 [facility] nivers 20 mg 3-15 tablet by ity of tablet 00:00: mouth [place] 00 daily. Medical Branch HYDRALAZINE 0 Yes [id number] Take 1 [facility] 10 mg 3-15 tablet by ity of tablet 00:00: mouth [place] 00 twice Medical daily Branch citalopram 2020-0 Yes [id number] 20mg Take 1 [facility] nivers 20 mg 3-15 tablet by ity of tablet 00:00: mouth [place] 00 daily. Medical Branch HYDRALAZINE 0 Yes [id number] Take 1 [facility] 10 mg 3-15 tablet by ity of tablet 00:00: mouth [place] 00 twice Medical daily Branch citalopram 2020-0 Yes [id number] 20mg Take 1 [facility] nivers 20 mg 3-15 tablet by ity of tablet 00:00: mouth [place] 00 daily. Medical Branch HYDRALAZINE 2020-0 Yes [id number] Take 1 [facility] 10 mg 3-15 tablet by ity of tablet 00:00: mouth [place] 00 twice Medical daily Branch citalopram 2020-0 Yes [id number] 20mg Take 1 [facility] nivers 20 mg 3-15 tablet by ity of tablet 00:00: mouth [place] 00 daily. Medical Branch HYDRALAZINE 2020-0 Yes [id number] Take 1 [facility] 10 mg 3-15 tablet by ity of tablet 00:00: mouth [place] 00 twice Medical daily Branch citalopram 2020-0 Yes [id number] 20mg Take 1 [facility] nivers 20 mg 3-15 tablet by ity of tablet 00:00: mouth [place] 00 daily. Medical Branch HYDRALAZINE 2020-0 Yes [id number] Take 1 [facility] 10 mg 3-15 tablet by ity of tablet 00:00: mouth [place] 00 twice Medical daily Branch citalopram 2020-0 Yes [id number] 20mg Take 1 [facility] nivers 20 mg 3-15 tablet by ity of tablet 00:00: mouth [place] 00 daily. Medical Branch HYDRALAZINE 2020-0 Yes [id number] Take 1 [facility] 10 mg 3-15 tablet by ity of tablet 00:00: mouth [place] 00 twice Medical daily Branch citalopram 2020-0 Yes [id number] 20mg Take 1 [facility] nivers 20 mg 3-15 tablet by ity of tablet 00:00: mouth [place] 00 daily. Medical Branch HYDRALAZINE 2020-0 Yes [id number] Take 1 [facility] 10 mg 3-15 tablet by ity of tablet 00:00: mouth [place] 00 twice Medical daily Branch citalopram 2020-0 Yes [id number] 20mg Take 1 [facility] nivers 20 mg 3-15 tablet by ity of tablet 00:00: mouth [place] 00 daily. Medical Branch HYDRALAZINE 2020-0 Yes [id number] Take 1 [facility] 10 mg 3-15 tablet by ity of tablet 00:00: mouth [place] 00 twice Medical daily Branch citalopram 2020-0 Yes [id number] 20mg Take 1 [facility] nivers 20 mg 3-15 tablet by ity of tablet 00:00: mouth [place] 00 daily. Medical Branch HYDRALAZINE 2020-0 Yes [id number] Take 1 [facility] 10 mg 3-15 tablet by ity of tablet 00:00: mouth [place] 00 twice Medical daily Branch citalopram 2020-0 Yes [id number] 20mg Take 1 [facility] nivers 20 mg 3-15 tablet by ity of tablet 00:00: mouth [place] 00 daily. Medical Branch HYDRALAZINE 2020-0 Yes [id number] Take 1 [facility] 10 mg 3-15 tablet by ity of tablet 00:00: mouth [place] 00 twice Medical daily Branch citalopram 2020-0 Yes [id number] 20mg Take 1 [facility]ivers 20 mg 3-15 tablet by ity of tablet 00:00: mouth [place] 00 daily. Medical Branch HYDRALAZINE 2020-0 Yes [id number] Take 1 [facility] 10 mg 3-15 tablet by ity of tablet 00:00: mouth [place] 00 twice Medical daily Branch citalopram 2020-0 Yes [id number] 20mg Take 1 [facility] nivers 20 mg 3-15 tablet by ity of tablet 00:00: mouth [place] 00 daily. Medical Branch HYDRALAZINE 2020-0 Yes [id number] Take 1 [facility] 10 mg 3-15 tablet by ity of tablet 00:00: mouth [place] 00 twice Medical daily Branch citalopram 2020-0 Yes [id number] 20mg Take 1 [facility] nivers 20 mg 3-15 tablet by ity of tablet 00:00: mouth [place] 00 daily. Medical Branch HYDRALAZINE 2020-0 Yes [id number] Take 1 [facility] 10 mg 3-15 tablet by ity of tablet 00:00: mouth [place] 00 twice Medical daily Branch citalopram 2020-0 Yes [id number] 20mg Take 1 [facility] nivers 20 mg 3-15 tablet by ity of tablet 00:00: mouth [place] 00 daily. Medical Branch HYDRALAZINE 2020-0 Yes [id number] Take 1 [facility] 10 mg 3-15 tablet by ity of tablet 00:00: mouth [place] 00 twice Medical daily Branch citalopram 2020-0 Yes [id number] 20mg Take 1 [facility]ivers 20 mg 3-15 tablet by ity of tablet 00:00: mouth [place] 00 daily. Medical Branch HYDRALAZINE 2020-0 Yes [id number] Take 1 [facility] 10 mg 3-15 tablet by ity of tablet 00:00: mouth [place] 00 twice Medical daily Branch citalopram 2020-0 Yes [id number] 20mg Take 1 [facility] nivers 20 mg 3-15 tablet by ity of tablet 00:00: mouth [place] 00 daily. Medical Branch HYDRALAZINE 2020-0 Yes [id number] Take 1 [facility] 10 mg 3-15 tablet by ity of tablet 00:00: mouth [place] 00 twice Medical daily Branch citalopram 2020-0 Yes [id number] 20mg Take 1 [facility]ivers 20 mg 3-15 tablet by ity of tablet 00:00: mouth [place] 00 daily. Medical Branch HYDRALAZINE 2020-0 Yes [id number] Take 1 [facility] 10 mg 3-15 tablet by ity of tablet 00:00: mouth [place] 00 twice Medical daily Branch citalopram 2021-0 Yes [id number] 20mg Take 1 [facility] nivers 20 mg 3-15 tablet by ity of tablet 00:00: mouth 00 daily. Medical Branch HYDRALAZINE Yes [id number] Take 1 [facility] 10 mg 3-15 tablet by ity of tablet 00:00: mouth 00 twice Medical daily Branch citalopram Yes [id number] 20mg Take 1 [facility] nivers 20 mg 3-15 tablet by ity of tablet 00:00: mouth 00 daily. Medical Branch HYDRALAZINE Yes [id number] Take 1 [facility] 10 mg 3-15 tablet by ity of tablet 00:00: mouth 00 twice Medical daily Branch citalopram Yes [id number] 20mg Take 1 [facility] nivers 20 mg 3-15 tablet by ity of tablet 00:00: mouth 00 daily. Medical Branch AMLODIPINE 2020- No [id number] Take 1 [facility] 10 mg 3-15 04-05 tablet by ity of tablet 00:00: 00:00 mouth [place] 00 :00 daily Medical Branch METOPROLOL 0 2020- No [id number] Take 1 [facility] TARTRATE 50 3-15 04-05 tablet by it y of mg tablet 00:00: 00:00 mouth [place] 00 :00 twice Medical daily Branch LOSARTAN 2020- No [id number] Take 1 [facility] 100 mg 3-15 04-05 tablet by ity of tablet 00:00: 00:00 mouth [place] 00 :00 daily Medical Branch AMLODIPINE 2020-0 2020- No [id number] Take 1 [facility] 10 mg 3-15 04-05 tablet by ity of tablet 00:00: 00:00 mouth [place] 00 :00 daily Medical Branch METOPROLOL 2020-0 2020- No [id number] Take 1 [facility] TARTRATE 50 3-15 04-05 tablet by it y of mg tablet 00:00: 00:00 mouth [place] 00 :00 twice Medical daily Branch LOSARTAN 2020-0 2020- No [id number] Take 1 Un moises 100 mg 3-15 [...] ity of acetate 19:00: 18:06 ONCE, 1 [place] (DEPO-MEDRO 00 :00 dose, Wed Med ical L) 80 mg/mL 10/08/20 Bran ch 80 mg, at 1300, 5 lidocaine mL 1% (PF) (XYLOCAINE) 4 mL 5 mL injection methylPREDN 2020- 2020- No 80mg [facility] ISolone 12-08 cular, ity of acetate 19:00: 18:06 ONCE, 1 [place] (DEPO-MEDRO 00 :00 dose, Wed Med ical [...] ity of acetate 19:00: 18:06 ONCE, 1 [place] (DEPO-MEDRO 00 :00 dose, Wed Med ical L) 80 mg/mL 10/08/20 Bran ch 80 mg, at 1300, 5 lidocaine mL 1% (PF) (XYLOCAINE) 4 mL 5 mL injection methylPREDN 2019-11- No 80mg [facility] ISolone 12-08 cular, ity of acetate 19:00: 18:06 ONCE, 1 [place] (DEPO-MEDRO 00 :00 dose, Wed Med ical L) 80 mg/mL 10/08/20 Bran ch 80 mg, at 1300, 5 lidocaine mL 1% (PF) (XYLOCAINE) 4 mL 5 mL injection naproxen 2019-11 Yes [id number] 500mg Take 1 U nivers 500 mg 0-29 tablet by ity of tablet 00:00: mouth (two) Medical times Branch daily with meals. baclofen 10 2019-11 Yes [id number] 10mg Take 1 [facility] mg tablet 0-29 tablet by ity o f 00:00: mouth 3 (three) Medical times Branch daily as needed for Pain (scale 7-10). naproxen 2019-11 Yes [id number] 500mg Take 1 U nivers 500 mg 0-29 tablet by ity of tablet 00:00: mouth 2 (two) Medical times Branch daily with meals. baclofen 10 2019-11 Yes [id number] 10mg Take 1 [facility] mg tablet 0-29 tablet by ity o f 00:00: mouth 3 (three) Medical times Branch daily as needed for Pain (scale 7-10). naproxen 2019-11 Yes [id number] 500mg Take 1 U nivers 500 mg 0-29 tablet by ity of tablet 00:00: mouth 2 (two) Medical times Branch daily with meals. baclofen 10 2019-11 Yes [id number] 10mg Take 1 [facility] mg tablet 0-29 tablet by ity o f 00:00: mouth 3 (three) Medical times Branch daily as needed for Pain (scale 7-10). naproxen 2019-11 Yes [id number] 500mg Take 1 [facility] nivers 500 mg 0-29 tablet by ity of tablet 00:00: mouth (two) Medical times Branch daily with meals. baclofen 10 2019-11 Yes [id number] 10mg Take 1 [facility] mg tablet 0-29 tablet by ity o f 00:00: mouth 3 (three) Medical times Branch daily as needed for Pain (scale 7-10). naproxen 2019-11 Yes [id number] 500mg Take 1 U nivers 500 mg 0-29 tablet by ity of tablet 00:00: mouth (two) Medical times Branch daily with meals. baclofen 10 2019-11 Yes [id number] 10mg Take 1 [facility] mg tablet 0-29 tablet by ity o f 00:00: mouth (three) Medical times Branch daily as needed for Pain (scale 7-10). naproxen 2019-11 Yes [id number] 500mg Take 1 U nivers 500 mg 0-29 tablet by ity of tablet 00:00: mouth (two) Medical times Branch daily with meals. baclofen 2019-11 Yes [id number] 10mg Take 1 [facility] mg tablet 0-29 tablet by ity o f 00:00: mouth (three) Medical times Branch daily as needed for Pain (scale 7-10). naproxen 2019-11 Yes [id number] 500mg Take 1 U nivers 500 mg 0-29 tablet by ity of tablet 00:00: mouth (two) Medical times Branch daily with meals. baclofen 10 2019-11 Yes [id number] 10mg Take 1 [facility] mg tablet 0-29 tablet by ity o f 00:00: mouth (three) Medical times Branch daily as needed for Pain (scale 7-10). naproxen 2019-11 Yes [id number] 500mg Take 1 [facility] nivers 500 mg 0-29 tablet by ity of tablet 00:00: mouth (two) Medical times Branch daily with meals. baclofen 10 2019-11 Yes [id number] 10mg Take 1 [facility] mg tablet 0-29 tablet by ity o f 00:00: mouth 3 (three) Medical times Branch daily as needed for Pain (scale 7-10). naproxen 2019-11 Yes [id number] 500mg Take 1 [facility] nivers 500 mg 0-29 tablet by ity of tablet 00:00: mouth (two) Medical times Branch daily with meals. baclofen 10 2019-11 Yes [id number] 10mg Take 1 [facility] mg tablet 0-29 tablet by ity o f 00:00: mouth 3 (three) Medical times Branch daily as needed for Pain (scale 7-10). naproxen 2019-11 Yes [id number] 500mg Take 1 [facility] nivers 500 mg 0-29 tablet by ity of tablet 00:00: mouth (two) Medical times Branch daily with meals. baclofen 10 2019-11 Yes [id number] 10mg Take 1 [facility] mg tablet 0-29 tablet by ity o f 00:00: mouth (three) Medical times Branch daily as needed for Pain (scale 7-10). naproxen 2019-11 Yes [id number] 500mg Take 1 [facility] nivers 500 mg 0-29 tablet by ity of tablet 00:00: mouth (two) Medical times Branch daily with meals. baclofen 2019-11 Yes [id number] 10mg Take 1 [facility] mg tablet 0-29 tablet by ity o f 00:00: mouth (three) Medical times Branch daily as needed for Pain (scale 7-10). naproxen 2019-11 Yes [id number] 500mg Take 1 [facility] nivers 500 mg 0-29 tablet by ity of tablet 00:00: mouth (two) Medical times Branch daily with meals. baclofen 10 2019-11 Yes [id number] 10mg Take 1 [facility] mg tablet 0-29 tablet by ity o f 00:00: mouth (three) Medical times Branch daily as needed for Pain (scale 7-10). naproxen 2019-11 Yes [id number] 500mg Take 1 [facility] nivers 500 mg 0-29 tablet by ity of tablet 00:00: mouth (two) Medical times Branch daily with meals. baclofen 10 2019-11 Yes [id number] 10mg Take 1 [facility] mg tablet 0-29 tablet by ity o f 00:00: mouth 3 (three) Medical times Branch daily as needed for Pain (scale 7-10). baclofen 10 2019-11 Yes [id number] 10mg Take 1 [facility] mg tablet 0-29 tablet by ity o f 00:00: mouth 3 (three) Medical times Branch daily as needed for Pain (scale 7-10). baclofen 10 2019-11 Yes [id number] 10mg Take 1 [facility] mg tablet 0-29 tablet by ity o f 00:00: mouth 3 (three) Medical times Branch daily as needed for Pain (scale 7-10). baclofen 10 2019-11 Yes [id number] 10mg Take 1 [facility] mg tablet 0-29 tablet by ity o f 00:00: mouth 3 (three) Medical times Branch daily as needed for Pain (scale 7-10). baclofen 10 2019-11 Yes [id number] 10mg Take 1 [facility] mg tablet 0-29 tablet by ity o f 00:00: mouth 3 (three) Medical times Branch daily as needed for Pain (scale 7-10). baclofen 10 2019-11 Yes [id number] 10mg Take 1 [facility] mg tablet 0-29 tablet by ity o f 00:00: mouth (three) Medical times Branch daily as needed for Pain (scale 7-10). baclofen 2019-11 Yes [id number] 10mg Take 1 [facility] mg tablet 0-29 tablet by ity o f 00:00: mouth (three) Medical times Branch daily as needed for Pain (scale 7-10). baclofen 10 2019-11 Yes [id number] 10mg Take 1 [facility] mg tablet 0-29 tablet by ity o f 00:00: mouth 3 (three) Medical times Branch daily as needed for Pain (scale 7-10). baclofen 10 2019-11 Yes [id number] 10mg Take 1 [facility] mg tablet 0-29 tablet by ity o f 00:00: mouth (three) Medical times Branch daily as needed for Pain (scale 7-10). baclofen 10 2019-11 Yes [id number] 10mg Take 1 [facility] mg tablet 0-29 tablet by ity o f 00:00: mouth 3 (three) Medical times Branch daily as needed for Pain (scale 7-10). baclofen 10 2019-11 Yes [id number] 10mg Take 1 [facility] mg tablet 0-29 tablet by ity o f 00:00: mouth 3 (three) Medical times Branch daily as needed for Pain (scale 7-10). baclofen 10 2019-11 Yes [id number] 10mg Take 1 [facility] mg tablet 0-29 tablet by ity o f 00:00: mouth 3 (three) Medical times Branch daily as needed for Pain (scale 7-10). baclofen 10 2019-11 Yes [id number] 10mg Take 1 [facility] mg tablet 0-29 tablet by ity o f 00:00: mouth 3 (three) Medical times Branch daily as needed for Pain (scale 7-10). baclofen 10 2019-11 Yes [id number] 10mg Take 1 [facility] mg tablet 0-29 tablet by ity o f 00:00: mouth 3 (three) Medical times Branch daily as needed for Pain (scale 7-10). baclofen 10 2019-11 Yes [id number] 10mg Take 1 [facility] mg tablet 0-29 tablet by ity o f 00:00: mouth (three) Medical times Branch daily as needed for Pain (scale 7-10). baclofen 2019-11 Yes [id number] 10mg Take 1 [facility] mg tablet 0-29 tablet by ity o f 00:00: mouth 3 (three) Medical times Branch daily as needed for Pain (scale 7-10). baclofen 10 2019-11 Yes [id number] 10mg Take 1 [facility] mg tablet 0-29 tablet by ity o f 00:00: mouth 3 (three) Medical times Branch daily as needed for Pain (scale 7-10). naproxen 2019-11 Yes [id number] 500mg Take 1 U nivers 500 mg 0-29 tablet by ity of tablet 00:00: mouth 2 (two) Medical times Branch daily with meals. baclofen 10 2019-11 Yes [id number] 10mg Take 1 [facility] mg tablet 0-29 tablet by ity o f 00:00: mouth 3 (three) Medical times Branch daily as needed for Pain (scale 7-10). naproxen 2019-11 Yes [id number] 500mg Take 1 [facility] nivers 500 mg 0-29 tablet by ity of tablet 00:00: mouth 2 (two) Medical times Branch daily with meals. baclofen 10 2019-11 Yes [id number] 10mg Take 1 [facility] mg tablet 0-29 tablet by ity o f 00:00: mouth 3 (three) Medical times Branch daily as needed for Pain (scale 7-10). naproxen 2019-11 Yes [id number] 500mg Take 1 U nivers 500 mg 0-29 tablet by ity of tablet 00:00: mouth (two) Medical times Branch daily with meals. baclofen 10 2019-11 Yes [id number] 10mg Take 1 [facility] mg tablet 0-29 tablet by ity o f 00:00: mouth (three) Medical times Branch daily as needed for Pain (scale 7-10). naproxen 2019-11 Yes [id number] 500mg Take 1 U nivers 500 mg 0-29 tablet by ity of tablet 00:00: mouth (two) Medical times Branch daily with meals. baclofen 10 2019-11 Yes [id number] 10mg Take 1 [facility] mg tablet 0-29 tablet by ity o f 00:00: mouth (three) Medical times Branch daily as needed for Pain (scale 7-10). naproxen 2019-11 Yes [id number] 500mg Take 1 U nivers 500 mg 0-29 tablet by ity of tablet 00:00: mouth (two) Medical times Branch daily with meals. baclofen 10 2019-11 Yes [id number] 10mg Take 1 [facility] mg tablet 0-29 tablet by ity o f 00:00: mouth (three) Medical times Branch daily as needed for Pain (scale 7-10). naproxen 2019-11 Yes [id number] 500mg Take 1 U nivers 500 mg 0-29 tablet by ity of tablet 00:00: mouth (two) Medical times Branch daily with meals. baclofen 10 2019-11 Yes [id number] 10mg Take 1 [facility] mg tablet 0-29 tablet by ity o f 00:00: mouth (three) Medical times Branch daily as needed for Pain (scale 7-10). naproxen 2019-11 Yes [id number] 500mg Take 1 [facility] nivers 500 mg 0-29 tablet by ity of tablet 00:00: mouth (two) Medical times Branch daily with meals. baclofen 10 2019-11 Yes [id number] 10mg Take 1 [facility] mg tablet 0-29 tablet by ity o f 00:00: mouth (three) Medical times Branch daily as needed for Pain (scale 7-10). naproxen 2019-11 Yes [id number] 500mg Take 1 [facility] nivers 500 mg 0-29 tablet by ity of tablet 00:00: mouth (two) Medical times Branch daily with meals. baclofen 10 2019-11 Yes [id number] 10mg Take 1 [facility] mg tablet 0-29 tablet by ity o f 00:00: mouth (three) Medical times Branch daily as needed for Pain (scale 7-10). naproxen 2019-11 Yes [id number] 500mg Take 1 [facility] nivers 500 mg 0-29 tablet by ity of tablet 00:00: mouth (two) Medical times Branch daily with meals. baclofen 10 2019-11 Yes [id number] 10mg Take 1 [facility] mg tablet 0-29 tablet by ity o f 00:00: mouth (three) Medical times Branch daily as needed for Pain (scale 7-10). naproxen 2019-11 Yes [id number] 500mg Take 1 [facility] nivers 500 mg 0-29 tablet by ity of tablet 00:00: mouth (two) Medical times Branch daily with meals. baclofen 10 2019-11 Yes [id number] 10mg Take 1 [facility] mg tablet 0-29 tablet by ity o f 00:00: mouth (three) Medical times Branch daily as needed for Pain (scale 7-10). naproxen 2019-11 Yes [id number] 500mg Take 1 [facility] nivers 500 mg 0-29 tablet by ity of tablet 00:00: mouth (two) Medical times Branch daily with meals. baclofen 10 2019-11 Yes [id number] 10mg Take 1 [facility] mg tablet 0-29 tablet by ity o f 00:00: mouth (three) Medical times Branch daily as needed for Pain (scale 7-10). naproxen 2019-11 Yes [id number] 500mg Take 1 [facility] nivers 500 mg 0-29 tablet by ity of tablet 00:00: mouth (two) Medical times Branch daily with meals. baclofen 10 2019-11 Yes [id number] 10mg Take 1 [facility] mg tablet 0-29 tablet by ity o f 00:00: mouth (three) Medical times Branch daily as needed for Pain (scale 7-10). naproxen 2019-11 Yes [id number] 500mg Take 1 U nivers 500 mg 0-29 tablet by ity of tablet 00:00: mouth (two) Medical times Branch daily with meals. baclofen 10 2019-11 Yes [id number] 10mg Take 1 [facility] mg tablet 0-29 tablet by ity o f 00:00: mouth (three) Medical times Branch daily as needed for Pain (scale 7-10). naproxen 2019-11 Yes [id number] 500mg Take 1 [facility] nivers 500 mg 0-29 tablet by ity of tablet 00:00: mouth (two) Medical times Branch daily with meals. baclofen 10 2019-11 Yes [id number] 10mg Take 1 [facility] mg tablet 0-29 tablet by ity o f 00:00: mouth (three) Medical times Branch daily as needed for Pain (scale 7-10). naproxen 2019-11 Yes [id number] 500mg Take 1 U nivers 500 mg 0-29 tablet by ity of tablet 00:00: mouth (two) Medical times Branch daily with meals. baclofen 10 2019-11 Yes [id number] 10mg Take 1 [facility] mg tablet 0-29 tablet by ity o f 00:00: mouth (three) Medical times Branch daily as needed for Pain (scale 7-10). naproxen 2019-11 Yes [id number] 500mg Take 1 [facility] nivers 500 mg 0-29 tablet by ity of tablet 00:00: mouth (two) Medical times Branch daily with meals. baclofen 10 2019-11 Yes [id number] 10mg Take 1 [facility] mg tablet 0-29 tablet by ity o f 00:00: mouth (three) Medical times Branch daily as needed for Pain (scale 7-10). naproxen 2019-11 Yes [id number] 500mg Take 1 [facility] nivers 500 mg 0-29 tablet by ity of tablet 00:00: mouth (two) Medical times Branch daily with meals. baclofen 10 2019-11 Yes [id number] 10mg Take 1 [facility] mg tablet 0-29 tablet by ity o f 00:00: mouth (three) Medical times Branch daily as needed for Pain (scale 7-10). naproxen 2019-11 Yes [id number] 500mg Take 1 [facility] nivers 500 mg 0-29 tablet by ity of tablet 00:00: mouth 2 (two) Medical times Branch daily with meals. baclofen 10 2019-11 Yes [id number] 10mg Take 1 [facility] mg tablet 0-29 tablet by ity o f 00:00: mouth 3 (three) Medical times Branch daily as needed for Pain (scale 7-10). naproxen 2019-11 Yes [id number] 500mg Take 1 [facility] 500 mg 0-29 tablet by [facility] of tablet 00:00: mouth (two) Medical times Branch daily with meals. baclofen 10 2019-11 Yes [id number] 10mg Take 1 [facility] mg tablet 0-29 tablet by [facility] o f 00:00: mouth 3 (three) Medical times Branch daily as needed for Pain (scale 7-10). naproxen 2019-11 Yes [id number] 500mg Take 1 [facility] 500 mg 0-29 tablet by [facility] of tablet 00:00: mouth (two) Medical times Branch daily with meals. baclofen 10 2019-11 Yes [id number] 10mg Take 1 [facility] mg tablet 0-29 tablet by [facility]y o f 00:00: mouth 3 (three) Medical times Branch daily as needed for Pain (scale 7-10). naproxen 2019-11- No [id number] 500mg Take 1 [facility] 500 mg 0-29 07-08 tablet by [facility] of tablet 00:00: 00:00 mouth 2 [place] 00 : (two) Medical times Branch daily with meals. naproxen 2019-11- No [id number] 500mg Take 1 [facility] 500 mg 0-29 07-08 tablet by ity of tablet 00:00: 00:00 mouth 2 [place] : (two) Medical times Branch daily with [...] ity o f meterol 15:48: 00:00 (two) [place] (ADVAIR 24 :00 times Medical DISKUS) daily. Branch 250-50 mcg/dose inhalation disk fluticasone 2020-0 2020- No 1{puff} Inhale 1 [facility] propion-tigist 8-06 08-06 Puff 2 ity o f meterol 15:48: 00:00 (two) [place] (ADVAIR 24 :00 times Medical DISKUS) daily. Branch 250-50 mcg/dose inhalation disk fluticasone 2020-0 2020- No 1{puff} Inhale 1 [facility] propion-tigist 8-06 08-06 Puff 2 ity o f meterol 15:48: 00:00 (two) [place] (ADVAIR 24 :00 times Medical DISKUS) daily. Branch 250-50 mcg/dose inhalation disk metoprolol 2019-0 Yes [id number] 50mg Take 1 [facility] tartrate 50 8-06 tablet by [facility]y of mg tablet 00:00: mouth 2 [place] 00 (two) Medical times Branch daily. citalopram 2020-0 Yes [id number] 20mg Take 1 [facility] 20 mg 8-06 tablet by [facility]y of tablet 00:00: mouth [place] 00 daily. Medical [facility] losartan 2019-0 Yes [id number] 100mg Take 1 [facility] 100 mg 8-06 tablet by [facility] of tablet 00:00: mouth [place] 00 daily. Medical [facility] amLODIPine 2019-0 Yes [id number] 10mg Take 1 [facility] 10 mg 8-06 tablet by [facility] of tablet 00:00: mouth [place] 00 daily. Medical [facility] hydrALAZINE 2020-0 Yes [id number] 10mg Take 1 [facility] 10 mg 8-06 tablet by [facility] of tablet 00:00: mouth 2 (two) Medical times Branch daily. albuterol 2020-0 Yes [id number] 2{puff} Inhale 2 [facility] (PROAIR 8-06 Puffs ity of HFA) 90 00:00: every 4 [place] mcg/actuati 00 (four) Medica l on inhaler hours as Branc h needed for Wheezing or Shortness of Breath. Use 1 puff by mouth every 4 to 6 hours as needed for wheezing fluticasone 2020-0 Yes [id number] 1{puff} Inhale 1 [facility] propion-tigist 8-06 Puff every it y of meterol 00:00: 12 [place] (ADVAIR 00 (twelve) Medical DISKUS) hours. Branch 250-50 mcg/dose inhalation disk metoprolol 2020-0 Yes [id number] 50mg Take 1 [facility] tartrate 50 8-06 tablet by [facility]y of mg tablet 00:00: mouth 2 (two) Medical times Branch daily. citalopram 2020-0 Yes [id number] 20mg Take 1 [facility] 20 mg 8-06 tablet by [facility] of tablet 00:00: mouth 00 daily. Medical [facility] losartan 2020-0 Yes [id number] 100mg Take 1 [facility] 100 mg 8-06 tablet by [facility] of tablet 00:00: mouth 00 daily. Medical [facility] amLODIPine 2020-0 Yes [id number] 10mg Take 1 [facility] 10 mg 8-06 tablet by [facility] of tablet 00:00: mouth [place] 00 daily. Medical [facility] hydrALAZINE 2020-0 Yes [id number] 10mg Take 1 [facility] 10 mg 8-06 tablet by [facility]y of tablet 00:00: mouth 2 [place] 00 (two) Medical times Branch daily. albuterol 2020-0 Yes [id number] 2{puff} Inhale 2 [facility] (PROAIR 8-06 Puffs ity of HFA) 90 00:00: every 4 [place] mcg/actuati 00 (four) Medica l on inhaler hours as Branc h needed for Wheezing or Shortness of Breath. Use 1 puff by mouth every 4 to 6 hours as needed for wheezing fluticasone 2020-0 Yes [id number] 1{puff} Inhale 1 [facility] propion-tigist 8-06 Puff every it y of meterol 00:00: 12 [place] (ADVAIR 00 (twelve) Medical DISKUS) hours. Branch 250-50 mcg/dose inhalation disk metoprolol 2020-0 Yes [id number] 50mg Take 1 [facility] tartrate 50 8-06 tablet by [facility]y of mg tablet 00:00: mouth 2 [place] (two) Medical times Branch daily. citalopram 2020-0 Yes [id number] 20mg Take 1 [facility] 20 mg 8-06 tablet by ity of tablet 00:00: mouth [place] 00 daily. Medical [facility] losartan 2020-0 Yes [id number] 100mg Take 1 [facility] 100 mg 8-06 tablet by [facility]y of tablet 00:00: mouth [place] 00 daily. Medical [facility] amLODIPine 2020-0 Yes [id number] 10mg Take 1 [facility] 10 mg 8-06 tablet by [facility]y of tablet 00:00: mouth [place] 00 daily. Medical [facility] hydrALAZINE 2020-0 Yes [id number] 10mg Take 1 [facility] 10 mg 8-06 tablet by ity of tablet 00:00: mouth 2 (two) Medical times Branch daily. albuterol 2020-0 Yes [id number] 2{puff} Inhale 2 [facility] (PROAIR 8-06 Puffs ity of HFA) 90 00:00: every 4 [place] mcg/actuati 00 (four) Medica l on inhaler hours as Branc h needed for Wheezing or Shortness of Breath. Use 1 puff by mouth every 4 to 6 hours as needed for wheezing fluticasone 2020-0 Yes [id number] 1{puff} Inhale 1 [facility] propion-tigist 8-06 Puff every it y of meterol 00:00: 12 [place] (ADVAIR 00 (twelve) Medical DISKUS) hours. Branch 250-50 mcg/dose inhalation disk metoprolol 2020-0 Yes [id number] 50mg Take 1 [facility] tartrate 50 8-06 tablet by ity of mg tablet 00:00: mouth 2 (two) Medical times Branch daily. citalopram 2020-0 Yes [id number] 20mg Take 1 [facility] 20 mg 8-06 tablet by [facility]y of tablet 00:00: mouth [place] 00 daily. Medical [facility] losartan 2020-0 Yes [id number] 100mg Take 1 [facility] 100 mg 8-06 tablet by [facility]y of tablet 00:00: mouth [place] 00 daily. Medical [facility] amLODIPine 2020-0 Yes [id number] 10mg Take 1 [facility] 10 mg 8-06 tablet by [facility]y of tablet 00:00: mouth [place] 00 daily. Medical [facility] hydrALAZINE 2020-0 Yes [id number] 10mg Take 1 [facility] 10 mg 8-06 tablet by [facility]y of tablet 00:00: mouth 2 [place] 00 (two) Medical times Branch daily. albuterol 2020-0 Yes [id number] 2{puff} Inhale 2 [facility] (PROAIR 8-06 Puffs ity of HFA) 90 00:00: every 4 [place] mcg/actuati 00 (four) Medica l on inhaler hours as Branc h needed for Wheezing or Shortness of Breath. Use 1 puff by mouth every 4 to 6 hours as needed for wheezing fluticasone 2020-0 Yes [id number] 1{puff} Inhale 1 [facility] propion-tigist 8-06 Puff every it y of meterol 00:00: 12 [place] (ADVAIR 00 (twelve) Medical DISKUS) hours. Branch 250-50 mcg/dose inhalation disk metoprolol 2020-0 Yes [id number] 50mg Take 1 [facility] tartrate 50 8-06 tablet by ity of mg tablet 00:00: mouth 2 (two) Medical times Branch daily. citalopram 2020-0 Yes [id number] 20mg Take 1 [facility] 20 mg 8-06 tablet by ity of tablet 00:00: mouth [place] 00 daily. Medical [facility] losartan 2020-0 Yes [id number] 100mg Take 1 [facility] 100 mg 8-06 tablet by [facility]y of tablet 00:00: mouth [place] 00 daily. Medical [facility] amLODIPine 2020-0 Yes [id number] 10mg Take 1 [facility] 10 mg 8-06 tablet by ity of tablet 00:00: mouth [place] 00 daily. [facility] hydrALAZINE 2020-0 Yes [id number] 10mg Take 1 [facility] 10 mg 8-06 tablet by ity of tablet 00:00: mouth 2 [place] 00 (two) Medical times Branch daily. albuterol 2020-0 Yes [id number] 2{puff} Inhale 2 [facility] (PROAIR 8-06 Puffs ity of HFA) 90 00:00: every 4 [place] mcg/actuati 00 (four) Medica l on inhaler hours as Branc h needed for Wheezing or Shortness of Breath. Use 1 puff by mouth every 4 to 6 hours as needed for wheezing fluticasone 2020-0 Yes [id number] 1{puff} Inhale 1 [facility] propion-tigist 8-06 Puff every it y of meterol 00:00: 12 [place] (ADVAIR 00 (twelve) Medical DISKUS) hours. Branch 250-50 mcg/dose inhalation disk metoprolol 2020-0 Yes [id number] 50mg Take 1 [facility] tartrate 50 8-06 tablet by [facility]y of mg tablet 00:00: mouth 2 [place] 00 (two) Medical times Branch daily. citalopram 2020-0 Yes [id number] 20mg Take 1 [facility] 20 mg 8-06 tablet by ity of tablet 00:00: mouth [place] 00 daily. Medical [facility] losartan 2020-0 Yes [id number] 100mg Take 1 [facility] 100 mg 8-06 tablet by ity of tablet 00:00: mouth [place] 00 daily. [facility] amLODIPine 2020-0 Yes [id number] 10mg Take 1 [facility] 10 mg 8-06 tablet by [facility]y of tablet 00:00: mouth [place] 00 daily. [facility] hydrALAZINE 2020-0 Yes [id number] 10mg Take 1 [facility] 10 mg 8-06 tablet by ity of tablet 00:00: mouth 2 [place] (two) Medical times Branch daily. albuterol 2020-0 Yes [id number] 2{puff} Inhale 2 [facility] (PROAIR 8-06 Puffs ity of HFA) 90 00:00: every 4 [place] mcg/actuati 00 (four) Medica l on inhaler hours as Branc h needed for Wheezing or Shortness of Breath. Use 1 puff by mouth every 4 to 6 hours as needed for wheezing fluticasone 2020-0 Yes [id number] 1{puff} Inhale 1 [facility] propion-tigist 8-06 Puff every it y of meterol 00:00: 12 [place] (ADVAIR 00 (twelve) Medical DISKUS) hours. Branch 250-50 mcg/dose inhalation disk metoprolol 2020-0 Yes [id number] 50mg Take 1 [facility] tartrate 50 8-06 tablet by ity of mg tablet 00:00: mouth 2 [place] 00 (two) Medical times Branch daily. citalopram 2020-0 Yes [id number] 20mg Take 1 [facility] 20 mg 8-06 tablet by ity of tablet 00:00: mouth [place] 00 daily. Medical [facility] losartan 2020-0 Yes [id number] 100mg Take 1 [facility] 100 mg 8-06 tablet by ity of tablet 00:00: mouth [place] 00 daily. Medical [facility] amLODIPine 2020-0 Yes [id number] 10mg Take 1 [facility] 10 mg 8-06 tablet by ity of tablet 00:00: mouth [place] 00 daily. [facility] hydrALAZINE 2020-0 Yes [id number] 10mg Take 1 [facility] 10 mg 8-06 tablet by ity of tablet 00:00: mouth 2 (two) Medical times Branch daily. albuterol 2020-0 Yes [id number] 2{puff} Inhale 2 [facility] (PROAIR 8-06 Puffs ity of HFA) 90 00:00: every 4 [place] mcg/actuati 00 (four) Medica l on inhaler hours as Branc h needed for Wheezing or Shortness of Breath. Use 1 puff by mouth every 4 to 6 hours as needed for wheezing fluticasone 2020-0 Yes [id number] 1{puff} Inhale 1 [facility] propion-tigist 8-06 Puff every it y of meterol 00:00: 12 [place] (ADVAIR 00 (twelve) Medical DISKUS) hours. Branch 250-50 mcg/dose inhalation disk metoprolol 2020-0 Yes [id number] 50mg Take 1 [facility] tartrate 50 8-06 tablet by ity of mg tablet 00:00: mouth 2 [place] (two) Medical times Branch daily. citalopram 2020-0 Yes [id number] 20mg Take 1 [facility] 20 mg 8-06 tablet by ity of tablet 00:00: mouth [place] 00 daily. Medical [facility] losartan 2020-0 Yes [id number] 100mg Take 1 [facility] 100 mg 8-06 tablet by ity of tablet 00:00: mouth [place] 00 daily. Medical [facility] amLODIPine 2020-0 Yes [id number] 10mg Take 1 [facility] 10 mg 8-06 tablet by ity of tablet 00:00: mouth [place] 00 daily. [facility] hydrALAZINE 2020-0 Yes [id number] 10mg Take 1 [facility] 10 mg 8-06 tablet by ity of tablet 00:00: mouth 2 [place] 00 (two) Medical times Branch daily. albuterol 2020-0 Yes [id number] 2{puff} Inhale 2 [facility] (PROAIR 8-06 Puffs ity of HFA) 90 00:00: every 4 [place] mcg/actuati 00 (four) Medica l on inhaler hours as Branc h needed for Wheezing or Shortness of Breath. Use 1 puff by mouth every 4 to 6 hours as needed for wheezing fluticasone 2020-0 Yes [id number] 1{puff} Inhale 1 [facility] propion-tigist 8-06 Puff every it y of meterol 00:00: 12 [place] (ADVAIR 00 (twelve) Medical DISKUS) hours. Branch 250-50 mcg/dose inhalation disk metoprolol 2020-0 Yes [id number] 50mg Take 1 [facility] tartrate 50 8-06 tablet by ity of mg tablet 00:00: mouth 2 (two) Medical times Branch daily. citalopram 2020-0 Yes [id number] 20mg Take 1 [facility] 20 mg 8-06 tablet by ity of tablet 00:00: mouth [place] 00 daily. Medical [facility] losartan 2020-0 Yes [id number] 100mg Take 1 [facility] 100 mg 8-06 tablet by ity of tablet 00:00: mouth [place] 00 daily. [facility] amLODIPine 2020-0 Yes [id number] 10mg Take 1 [facility] 10 mg 8-06 tablet by ity of tablet 00:00: mouth [place] 00 daily. [facility] hydrALAZINE 2020-0 Yes [id number] 10mg Take 1 [facility] 10 mg 8-06 tablet by ity of tablet 00:00: mouth 2 [place] 00 (two) Medical times Branch daily. albuterol 2020-0 Yes [id number] 2{puff} Inhale 2 [facility] (PROAIR 8-06 Puffs ity of HFA) 90 00:00: every 4 [place] mcg/actuati 00 (four) Medica l on inhaler hours as Branc h needed for Wheezing or Shortness of Breath. Use 1 puff by mouth every 4 to 6 hours as needed for wheezing fluticasone 2020-0 Yes [id number] 1{puff} Inhale 1 [facility] propion-tigist 8-06 Puff every it y of meterol 00:00: 12 [place] (ADVAIR 00 (twelve) Medical DISKUS) hours. Branch 250-50 mcg/dose inhalation disk metoprolol 2020-0 Yes [id number] 50mg Take 1 [facility] tartrate 50 8-06 tablet by ity of mg tablet 00:00: mouth 2 [place] (two) Medical times Branch daily. citalopram 2020-0 Yes [id number] 20mg Take 1 [facility] 20 mg 8-06 tablet by ity of tablet 00:00: mouth [place] 00 daily. Medical [facility] losartan 2020-0 Yes [id number] 100mg Take 1 [facility] 100 mg 8-06 tablet by ity of tablet 00:00: mouth [place] 00 daily. Medical [facility] amLODIPine 2020-0 Yes [id number] 10mg Take 1 [facility] 10 mg 8-06 tablet by ity of tablet 00:00: mouth [place] 00 daily. Medical [facility] hydrALAZINE 2020-0 Yes [id number] 10mg Take 1 [facility] 10 mg 8-06 tablet by ity of tablet 00:00: mouth 2 (two) Medical times Branch daily. albuterol 2020-0 Yes [id number] 2{puff} Inhale 2 [facility] (PROAIR 8-06 Puffs ity of HFA) 90 00:00: every 4 [place] mcg/actuati 00 (four) Medica l on inhaler hours as Branc h needed for Wheezing or Shortness of Breath. Use 1 puff by mouth every 4 to 6 hours as needed for wheezing fluticasone 2020-0 Yes [id number] 1{puff} Inhale 1 [facility] propion-tigist 8-06 Puff every it y of meterol 00:00: 12 [place] (ADVAIR 00 (twelve) Medical DISKUS) hours. Branch 250-50 mcg/dose inhalation disk metoprolol 2020-0 Yes [id number] 50mg Take 1 [facility] tartrate 50 8-06 tablet by ity of mg tablet 00:00: mouth 2 (two) Medical times Branch daily. losartan 2020-0 Yes [id number] 100mg Take 1 [facility] 100 mg 8-06 tablet by ity of tablet 00:00: mouth [place] 00 daily. Medical [facility] amLODIPine 2020-0 Yes [id number] 10mg Take 1 [facility] 10 mg 8-06 tablet by ity of tablet 00:00: mouth 00 daily. Medical [facility] hydrALAZINE 2020-0 Yes [id number] 10mg Take 1 [facility] 10 mg 8-06 tablet by ity of tablet 00:00: mouth 2 (two) Medical times Branch daily. albuterol 2020-0 Yes [id number] 2{puff} Inhale 2 [facility] (PROAIR 8-06 Puffs ity of HFA) 90 00:00: every 4 [place] mcg/actuati 00 (four) Medica l on inhaler hours as Branc h needed for Wheezing or Shortness of Breath. Use 1 puff by mouth every 4 to 6 hours as needed for wheezing fluticasone 2020-0 Yes [id number] 1{puff} Inhale 1 [facility] propion-tigist 8-06 Puff every it y of meterol 00:00: 12 [place] (ADVAIR (twelve) Medical DISKUS) hours. Branch 250-50 mcg/dose inhalation disk metoprolol 2020-0 Yes [id number] 50mg Take 1 [facility] tartrate 50 8-06 tablet by ity of mg tablet 00:00: mouth 2 (two) Medical times Branch daily. losartan 2020-0 Yes [id number] 100mg Take 1 [facility] 100 mg 8-06 tablet by ity of tablet 00:00: mouth 00 daily. Medical [facility] amLODIPine 2020-0 Yes [id number] 10mg Take 1 [facility] 10 mg 8-06 tablet by ity of tablet 00:00: mouth 00 daily. Medical Branch hydrALAZINE 2020-0 Yes [id number] 10mg Take 1 [facility] 10 mg 8-06 tablet by ity of tablet 00:00: mouth 2 (two) Medical times Branch daily. albuterol 2020-0 Yes [id number] 2{puff} Inhale 2 [facility] (PROAIR 8-06 Puffs ity of HFA) 90 00:00: every 4 [place] mcg/actuati 00 (four) Medica l on inhaler hours as Branc h needed for Wheezing or Shortness of Breath. Use 1 puff by mouth every 4 to 6 hours as needed for wheezing fluticasone 2020-0 Yes [id number] 1{puff} Inhale 1 [facility] propion-tigist 8-06 Puff every it y of meterol 00:00: 12 [place] (ADVAIR 00 (twelve) Medical DISKUS) hours. Branch 250-50 mcg/dose inhalation disk metoprolol 2020-0 Yes [id number] 50mg Take 1 [facility] n[facility] tartrate 50 8-06 tablet by ity of mg tablet 00:00: mouth 2 (two) Medical times Branch daily. losartan 2020-0 Yes [id number] 100mg Take 1 [facility] 100 mg 8-06 tablet by ity of tablet 00:00: mouth 00 daily. Medical Branch amLODIPine 2020-0 Yes [id number] 10mg Take 1 [facility] 10 mg 8-06 tablet by ity of tablet 00:00: mouth 00 daily. Medical Branch hydrALAZINE 2020-0 Yes [id number] 10mg Take 1 [facility] 10 mg 8-06 tablet by ity of tablet 00:00: mouth 2 (two) Medical times Branch daily. albuterol 2020-0 Yes [id number] 2{puff} Inhale 2 [facility] (PROAIR 8-06 Puffs ity of HFA) 90 00:00: every 4 [place] mcg/actuati 00 (four) Medica l on inhaler hours as Branc h needed for Wheezing or Shortness of Breath. Use 1 puff by mouth every 4 to 6 hours as needed for wheezing fluticasone 2020-0 Yes [id number] 1{puff} Inhale 1 [facility] propion-tigist 8-06 Puff every it y of meterol 00:00: 12 [place] (ADVAIR 00 (twelve) Medical DISKUS) hours. Branch 250-50 mcg/dose inhalation disk metoprolol 2020-0 Yes [id number] 50mg Take 1 [facility] nivers tartrate 50 8-06 tablet by ity of mg tablet 00:00: mouth 2 (two) Medical times Branch daily. losartan 2020-0 Yes [id number] 100mg Take 1 [facility] 100 mg 8-06 tablet by ity of tablet 00:00: mouth 00 daily. Medical Branch amLODIPine 2020-0 Yes [id number] 10mg Take 1 [facility] 10 mg 8-06 tablet by ity of tablet 00:00: mouth 00 daily. Medical Branch hydrALAZINE 2020-0 Yes [id number] 10mg Take 1 [facility] 10 mg 8-06 tablet by ity of tablet 00:00: mouth 2 (two) Medical times Branch daily. albuterol 2020-0 Yes [id number] 2{puff} Inhale 2 [facility] (PROAIR 8-06 Puffs ity of HFA) 90 00:00: every 4 [place] mcg/actuati 00 (four) Medica l on inhaler hours as Branc h needed for Wheezing or Shortness of Breath. Use 1 puff by mouth every 4 to 6 hours as needed for wheezing fluticasone 2020-0 Yes [id number] 1{puff} Inhale 1 [facility] propion-tigist 8-06 Puff every it y of meterol 00:00: 12 [place] (ADVAIR 00 (twelve) Medical DISKUS) hours. Branch 250-50 mcg/dose inhalation disk hydrALAZINE 2020-0 Yes [id number] 10mg Take 1 [facility] 10 mg 8-06 tablet by ity of tablet 00:00: mouth 2 [place] [address] (two) Medical times Branch daily. albuterol 2020-0 Yes [id number] 2{puff} Inhale 2 [facility] (PROAIR 8-06 Puffs ity of HFA) 90 00:00: every 4 [place] mcg/actuati 00 (four) Medica l on inhaler hours as Branc h needed for Wheezing or Shortness of Breath. Use 1 puff by mouth every 4 to 6 hours as needed for wheezing fluticasone 2020-0 Yes [id number] 1{puff} Inhale 1 [facility] propion-tigist 8-06 Puff every it y of meterol 00:00: 12 [place] (ADVAIR 00 (twelve) Medical DISKUS) hours. Branch 250-50 mcg/dose inhalation disk hydrALAZINE 2020-0 Yes [id number] 10mg Take 1 [facility] 10 mg 8-06 tablet by ity of tablet 00:00: mouth 2 [place] (two) Medical times Branch daily. albuterol 2020-0 Yes [id number] 2{puff} Inhale 2 [facility] (PROAIR 8-06 Puffs ity of HFA) 90 00:00: every 4 [place] mcg/actuati 00 (four) Medica l on inhaler hours as Branc h needed for Wheezing or Shortness of Breath. Use 1 puff by mouth every 4 to 6 hours as needed for wheezing fluticasone 2020-0 Yes [id number] 1{puff} Inhale 1 [facility] propion-tigist 8-06 Puff every it y of meterol 00:00: 12 [place] (ADVAIR 00 (twelve) Medical DISKUS) hours. Branch 250-50 mcg/dose inhalation disk hydrALAZINE 2020-0 Yes [id number] 10mg Take 1 [facility] 10 mg 8-06 tablet by ity of tablet 00:00: mouth 2 [place] (two) Medical times Branch daily. albuterol 2020-0 Yes [id number] 2{puff} Inhale 2 [facility] (PROAIR 8-06 Puffs ity of HFA) 90 00:00: every 4 [place] mcg/actuati 00 (four) Medica l on inhaler hours as Branc h needed for Wheezing or Shortness of Breath. Use 1 puff by mouth every 4 to 6 hours as needed for wheezing fluticasone 2020-0 Yes [id number] 1{puff} Inhale 1 [facility] propion-tigist 8-06 Puff every it y of meterol 00:00: 12 [place] (ADVAIR 00 (twelve) Medical DISKUS) hours. Branch 250-50 mcg/dose inhalation disk hydrALAZINE 2020-0 Yes [id number] 10mg Take 1 [facility] 10 mg 8-06 tablet by ity of tablet 00:00: mouth 2 [place] (two) Medical times Branch daily. albuterol 2020-0 Yes [id number] 2{puff} Inhale 2 [facility] (PROAIR 8-06 Puffs ity of HFA) 90 00:00: every 4 [place] mcg/actuati 00 (four) Medica l on inhaler hours as Branc h needed for Wheezing or Shortness of Breath. Use 1 puff by mouth every 4 to 6 hours as needed for wheezing fluticasone 2020-0 Yes [id number] 1{puff} Inhale 1 [facility] propion-tigist 8-06 Puff every it y of meterol 00:00: 12 [place] (ADVAIR 00 (twelve) Medical DISKUS) hours. Branch 250-50 mcg/dose inhalation disk hydrALAZINE 2020-0 Yes [id number] 10mg Take 1 [facility] 10 mg 8-06 tablet by ity of tablet 00:00: mouth 2 [place] (two) Medical times Branch daily. albuterol 2020-0 Yes [id number] 2{puff} Inhale 2 [facility] (PROAIR 8-06 Puffs ity of HFA) 90 00:00: every 4 [place] mcg/actuati 00 (four) Medica l on inhaler hours as Branc h needed for Wheezing or Shortness of Breath. Use 1 puff by mouth every 4 to 6 hours as needed for wheezing fluticasone 2020-0 Yes [id number] 1{puff} Inhale 1 [facility] propion-tigist 8-06 Puff every it y of meterol 00:00: 12 [place] (ADVAIR 00 (twelve) Medical DISKUS) hours. Branch 250-50 mcg/dose inhalation disk hydrALAZINE 2020-0 Yes [id number] 10mg Take 1 [facility] 10 mg 8-06 tablet by ity of tablet 00:00: mouth 2 [place] (two) Medical times Branch daily. albuterol 2020-0 Yes [id number] 2{puff} Inhale 2 [facility] (PROAIR 8-06 Puffs ity of HFA) 90 00:00: every 4 [place] mcg/actuati 00 (four) Medica l on inhaler hours as Branc h needed for Wheezing or Shortness of Breath. Use 1 puff by mouth every 4 to 6 hours as needed for wheezing fluticasone 2020-0 Yes [id number] 1{puff} Inhale 1 [facility] propion-tigist 8-06 Puff every it y of meterol 00:00: 12 [place] (ADVAIR 00 (twelve) Medical DISKUS) hours. Branch 250-50 mcg/dose inhalation disk hydrALAZINE 2020-0 Yes [id number] 10mg Take 1 [facility] 10 mg 8-06 tablet by ity of tablet 00:00: mouth 2 [place] (two) Medical times Branch daily. albuterol 2020-0 Yes [id number] 2{puff} Inhale 2 [facility] (PROAIR 8-06 Puffs ity of HFA) 90 00:00: every 4 [place] mcg/actuati 00 (four) Medica l on inhaler hours as Branc h needed for Wheezing or Shortness of Breath. Use 1 puff by mouth every 4 to 6 hours as needed for wheezing fluticasone 2020-0 Yes [id number] 1{puff} Inhale 1 [facility] propion-tigist 8-06 Puff every it y of meterol 00:00: 12 [place] (ADVAIR 00 (twelve) Medical DISKUS) hours. Branch 250-50 mcg/dose inhalation disk metoprolol 2020-0 Yes [id number] 50mg Take 1 [facility] n[facility] tartrate 50 8-06 tablet by ity of mg tablet 00:00: mouth 2 [place] 00 (two) Medical times Branch daily. citalopram 2020-0 Yes [id number] 20mg Take 1 [facility] 20 mg 8-06 tablet by ity of tablet 00:00: mouth [place] 00 daily. Medical [facility] losartan 2020-0 Yes [id number] 100mg Take 1 [facility] mo[facility] 100 mg 8-06 tablet by ity of tablet 00:00: mouth [place] 00 daily. [facility] amLODIPine 2020-0 Yes [id number] 10mg Take 1 [facility] 10 mg 8-06 tablet by ity of tablet 00:00: mouth [place] 00 daily. [facility] hydrALAZINE 2020-0 Yes [id number] 10mg Take 1 [facility] 10 mg 8-06 tablet by ity of tablet 00:00: mouth 2 [place] (two) Medical times Branch daily. albuterol 2020-0 Yes [id number] 2{puff} Inhale 2 [facility] (PROAIR 8-06 Puffs ity of HFA) 90 00:00: every 4 [place] mcg/actuati 00 (four) Medica l on inhaler hours as Branc h needed for Wheezing or Shortness of Breath. Use 1 puff by mouth every 4 to 6 hours as needed for wheezing fluticasone 2020-0 Yes [id number] 1{puff} Inhale 1 [facility] propion-tigist 8-06 Puff every it y of meterol 00:00: 12 [place] (ADVAIR 00 (twelve) Medical DISKUS) hours. Branch 250-50 mcg/dose inhalation disk metoprolol 2020-0 Yes [id number] 50mg Take 1 [facility] nivers tartrate 50 8-06 tablet by ity of mg tablet 00:00: mouth 2 [place] 00 (two) Medical times Branch daily. citalopram 2020-0 Yes [id number] 20mg Take 1 [facility] 20 mg 8-06 tablet by ity of tablet 00:00: mouth [place] 00 daily. [facility] losartan 2020-0 Yes [id number] 100mg Take 1 [facility] 100 mg 8-06 tablet by ity of tablet 00:00: mouth [place] 00 daily. [facility] amLODIPine 2020-0 Yes [id number] 10mg Take 1 [facility] 10 mg 8-06 tablet by ity of tablet 00:00: mouth [place] 00 daily. [facility] hydrALAZINE 2020-0 Yes [id number] 10mg Take 1 [facility] 10 mg 8-06 tablet by ity of tablet 00:00: mouth 2 [place] (two) Medical times Branch daily. albuterol 2020-0 Yes [id number] 2{puff} Inhale 2 [facility] (PROAIR 8-06 Puffs ity of HFA) 90 00:00: every 4 [place] mcg/actuati 00 (four) Medica l on inhaler hours as Branc h needed for Wheezing or Shortness of Breath. Use 1 puff by mouth every 4 to 6 hours as needed for wheezing fluticasone 2020-0 Yes [id number] 1{puff} Inhale 1 [facility] propion-tigist 8-06 Puff every it y of meterol 00:00: 12 [place] (ADVAIR 00 (twelve) Medical DISKUS) hours. Branch 250-50 mcg/dose inhalation disk metoprolol 2020-0 Yes [id number] 50mg Take 1 U nivers tartrate 50 8-06 tablet by ity of mg tablet 00:00: mouth 2 (two) Medical times Branch daily. citalopram 2020-0 Yes [id number] 20mg Take 1 [facility] 20 mg 8-06 tablet by ity of tablet 00:00: mouth 00 daily. [facility] losartan 2020-0 Yes [id number] 100mg Take 1 [facility] 100 mg 8-06 tablet by ity of tablet 00:00: mouth 00 daily. [facility] amLODIPine 2020-0 Yes [id number] 10mg Take 1 [facility] n[facility] 10 mg 8-06 tablet by ity of tablet 00:00: mouth [place] 00 daily. [facility] hydrALAZINE 2020-0 Yes [id number] 10mg Take 1 [facility] 10 mg 8-06 tablet by ity of tablet 00:00: mouth 2 [place] 00 (two) Medical times Branch daily. albuterol 2020-0 Yes [id number] 2{puff} Inhale 2 [facility] (PROAIR 8-06 Puffs ity of HFA) 90 00:00: every 4 [place] mcg/actuati 00 (four) Medica l on inhaler hours as Branc h needed for Wheezing or Shortness of Breath. Use 1 puff by mouth every 4 to 6 hours as needed for wheezing fluticasone 2020-0 Yes [id number] 1{puff} Inhale 1 [facility] propion-tigist 8-06 Puff every it y of meterol 00:00: 12 [place] (ADVAIR 00 (twelve) Medical DISKUS) hours. Branch 250-50 mcg/dose inhalation disk metoprolol 2020-0 Yes [id number] 50mg Take 1 [facility] n[facility] tartrate 50 8-06 tablet by ity of mg tablet 00:00: mouth 2 (two) Medical times Branch daily. citalopram 2020-0 Yes [id number] 20mg Take 1 [facility] 20 mg 8-06 tablet by ity of tablet 00:00: mouth [place] 00 daily. [facility] losartan 2020-0 Yes [id number] 100mg Take 1 [facility] 100 mg 8-06 tablet by ity of tablet 00:00: mouth 00 daily. [facility] amLODIPine 2020-0 Yes [id number] 10mg Take 1 [facility] n[facility] 10 mg 8-06 tablet by ity of tablet 00:00: mouth 00 daily. [facility] hydrALAZINE 2020-0 Yes [id number] 10mg Take 1 [facility] 10 mg 8-06 tablet by ity of tablet 00:00: mouth 2 (two) Medical times Branch daily. albuterol 2020-0 Yes [id number] 2{puff} Inhale 2 [facility] (PROAIR 8-06 Puffs ity of HFA) 90 00:00: every 4 [place] mcg/actuati 00 (four) Medica l on inhaler hours as Branc h needed for Wheezing or Shortness of Breath. Use 1 puff by mouth every 4 to 6 hours as needed for wheezing fluticasone 2020-0 Yes [id number] 1{puff} Inhale 1 [facility] propion-tigist 8-06 Puff every it y of meterol 00:00: 12 [place] (ADVAIR 00 (twelve) Medical DISKUS) hours. Branch 250-50 mcg/dose inhalation disk metoprolol 2020-0 Yes [id number] 50mg Take 1 [facility] nivers tartrate 50 8-06 tablet by ity of mg tablet 00:00: mouth 2 (two) Medical times Branch daily. citalopram 2020-0 Yes [id number] 20mg Take 1 [facility] 20 mg 8-06 tablet by ity of tablet 00:00: mouth [place] 00 daily. [facility] losartan 2020-0 Yes [id number] 100mg Take 1 [facility] 100 mg 8-06 tablet by ity of tablet 00:00: mouth [place] 00 daily. [facility] amLODIPine 2020-0 Yes [id number] 10mg Take 1 [facility] 10 mg 8-06 tablet by ity of tablet 00:00: mouth [place] 00 daily. [facility] hydrALAZINE 2020-0 Yes [id number] 10mg Take 1 [facility] 10 mg 8-06 tablet by ity of tablet 00:00: mouth 2 [place] 00 (two) Medical times Branch daily. albuterol 2020-0 Yes [id number] 2{puff} Inhale 2 [facility] (PROAIR 8-06 Puffs ity of HFA) 90 00:00: every 4 [place] mcg/actuati 00 (four) Medica l on inhaler hours as Branc h needed for Wheezing or Shortness of Breath. Use 1 puff by mouth every 4 to 6 hours as needed for wheezing fluticasone 2020-0 Yes [id number] 1{puff} Inhale 1 [facility] propion-tigist 8-06 Puff every it y of meterol 00:00: 12 [place] (ADVAIR 00 (twelve) Medical DISKUS) hours. Branch 250-50 mcg/dose inhalation disk metoprolol 2020-0 Yes [id number] 50mg Take 1 [facility] n[facility] tartrate 50 8-06 tablet by ity of mg tablet 00:00: mouth 2 (two) Medical times Branch daily. citalopram 2020-0 Yes [id number] 20mg Take 1 [facility] 20 mg 8-06 tablet by ity of tablet 00:00: mouth [place] 00 daily. [facility] losartan 2020-0 Yes [id number] 100mg Take 1 [facility] 100 mg 8-06 tablet by ity of tablet 00:00: mouth [place] 00 daily. [facility] amLODIPine 2020-0 Yes [id number] 10mg Take 1 [facility] 10 mg 8-06 tablet by ity of tablet 00:00: mouth [place] 00 daily. [facility] hydrALAZINE 2020-0 Yes [id number] 10mg Take 1 [facility] 10 mg 8-06 tablet by ity of tablet 00:00: mouth 2 [place] 00 (two) Medical times Branch daily. albuterol 2020-0 Yes [id number] 2{puff} Inhale 2 [facility] (PROAIR 8-06 Puffs ity of HFA) 90 00:00: every 4 [place] mcg/actuati 00 (four) Medica l on inhaler hours as Branc h needed for Wheezing or Shortness of Breath. Use 1 puff by mouth every 4 to 6 hours as needed for wheezing fluticasone 2020-0 Yes [id number] 1{puff} Inhale 1 [facility] propion-tigist 8-06 Puff every it y of meterol 00:00: 12 [place] (ADVAIR 00 (twelve) Medical DISKUS) hours. Branch 250-50 mcg/dose inhalation disk metoprolol 2020-0 Yes [id number] 50mg Take 1 [facility] nivers tartrate 50 8-06 tablet by ity of mg tablet 00:00: mouth 2 (two) Medical times Branch daily. citalopram 2020-0 Yes [id number] 20mg Take 1 [facility] 20 mg 8-06 tablet by ity of tablet 00:00: mouth [place] 00 daily. [facility] losartan 2020-0 Yes [id number] 100mg Take 1 [facility] 100 mg 8-06 tablet by ity of tablet 00:00: mouth [place] 00 daily. [facility] amLODIPine 2020-0 Yes [id number] 10mg Take 1 [facility] 10 mg 8-06 tablet by ity of tablet 00:00: mouth [place] 00 daily. [facility] hydrALAZINE 2020-0 Yes [id number] 10mg Take 1 [facility] 10 mg 8-06 tablet by ity of tablet 00:00: mouth 2 (two) Medical times Branch daily. albuterol 2020-0 Yes [id number] 2{puff} Inhale 2 [facility] (PROAIR 8-06 Puffs ity of HFA) 90 00:00: every 4 [place] mcg/actuati 00 (four) Medica l on inhaler hours as Branc h needed for Wheezing or Shortness of Breath. Use 1 puff by mouth every 4 to 6 hours as needed for wheezing fluticasone 2020-0 Yes [id number] 1{puff} Inhale 1 [facility] propion-tigist 8-06 Puff every it y of meterol 00:00: 12 [place] (ADVAIR 00 (twelve) Medical DISKUS) hours. Branch 250-50 mcg/dose inhalation disk metoprolol 2020-0 Yes [id number] 50mg Take 1 [facility] nivers tartrate 50 8-06 tablet by ity of mg tablet 00:00: mouth 2 [place] 00 (two) Medical times Branch daily. citalopram 2020-0 Yes [id number] 20mg Take 1 [facility] 20 mg 8-06 tablet by ity of tablet 00:00: mouth [place] 00 daily. [facility] losartan 2020-0 Yes [id number] 100mg Take 1 [facility] 100 mg 8-06 tablet by ity of tablet 00:00: mouth [place] 00 daily. [facility] amLODIPine 2020-0 Yes [id number] 10mg Take 1 [facility] 10 mg 8-06 tablet by ity of tablet 00:00: mouth [place] 00 daily. [facility] hydrALAZINE 2020-0 Yes [id number] 10mg Take 1 [facility] 10 mg 8-06 tablet by ity of tablet 00:00: mouth 2 (two) Medical times Branch daily. albuterol 2020-0 Yes [id number] 2{puff} Inhale 2 [facility] (PROAIR 8-06 Puffs ity of HFA) 90 00:00: every 4 [place] mcg/actuati 00 (four) Medica l on inhaler hours as Branc h needed for Wheezing or Shortness of Breath. Use 1 puff by mouth every 4 to 6 hours as needed for wheezing fluticasone 2020-0 Yes [id number] 1{puff} Inhale 1 [facility] propion-tigist 8-06 Puff every it y of meterol 00:00: 12 [place] (ADVAIR 00 (twelve) Medical DISKUS) hours. Branch 250-50 mcg/dose inhalation disk metoprolol 2020-0 Yes [id number] 50mg Take 1 [facility] nivers tartrate 50 8-06 tablet by ity of mg tablet 00:00: mouth 2 (two) Medical times Branch daily. citalopram 2020-0 Yes [id number] 20mg Take 1 [facility] 20 mg 8-06 tablet by ity of tablet 00:00: mouth [place] 00 daily. Medical [facility] losartan 2020-0 Yes [id number] 100mg Take 1 [facility] 100 mg 8-06 tablet by ity of tablet 00:00: mouth [place] 00 daily. [facility] amLODIPine 2020-0 Yes [id number] 10mg Take 1 [facility] n[facility] 10 mg 8-06 tablet by ity of tablet 00:00: mouth [place] 00 daily. [facility] hydrALAZINE 2020-0 Yes [id number] 10mg Take 1 [facility] 10 mg 8-06 tablet by ity of tablet 00:00: mouth 2 (two) Medical times Branch daily. albuterol 2020-0 Yes [id number] 2{puff} Inhale 2 [facility] (PROAIR 8-06 Puffs ity of HFA) 90 00:00: every 4 [place] mcg/actuati 00 (four) Medica l on inhaler hours as Branc h needed for Wheezing or Shortness of Breath. Use 1 puff by mouth every 4 to 6 hours as needed for wheezing fluticasone 2020-0 Yes [id number] 1{puff} Inhale 1 [facility] propion-tigist 8-06 Puff every it y of meterol 00:00: 12 [place] (ADVAIR 00 (twelve) Medical DISKUS) hours. Branch 250-50 mcg/dose inhalation disk metoprolol 2020-0 Yes [id number] 50mg Take 1 [facility] nivers tartrate 50 8-06 tablet by ity of mg tablet 00:00: mouth 2 (two) Medical times Branch daily. citalopram 2020-0 Yes [id number] 20mg Take 1 [facility] 20 mg 8-06 tablet by ity of tablet 00:00: mouth 00 daily. Medical Branch losartan 2020-0 Yes [id number] 100mg Take 1 [facility] 100 mg 8-06 tablet by ity of tablet 00:00: mouth 00 daily. Medical [facility] amLODIPine 2020-0 Yes [id number] 10mg Take 1 [facility] 10 mg 8-06 tablet by ity of tablet 00:00: mouth 00 daily. Medical Branch hydrALAZINE 2020-0 Yes [id number] 10mg Take 1 [facility] 10 mg 8-06 tablet by ity of tablet 00:00: mouth 2 (two) Medical times Branch daily. albuterol 2020-0 Yes [id number] 2{puff} Inhale 2 [facility] (PROAIR 8-06 Puffs ity of HFA) 90 00:00: every 4 [place] mcg/actuati 00 (four) Medica l on inhaler hours as Branc h needed for Wheezing or Shortness of Breath. Use 1 puff by mouth every 4 to 6 hours as needed for wheezing fluticasone 2020-0 Yes [id number] 1{puff} Inhale 1 [facility] propion-tigist 8-06 Puff every it y of meterol 00:00: 12 [place] (ADVAIR 00 (twelve) Medical DISKUS) hours. Branch 250-50 mcg/dose inhalation disk metoprolol 2020-0 Yes [id number] 50mg Take 1 [facility] nivers tartrate 50 8-06 tablet by ity of mg tablet 00:00: mouth 2 (two) Medical times Branch daily. citalopram 2020-0 Yes [id number] 20mg Take 1 [facility] n[facility] 20 mg 8-06 tablet by ity of tablet 00:00: mouth [place] 00 daily. Medical [facility] losartan 2020-0 Yes [id number] 100mg Take 1 [facility] 100 mg 8-06 tablet by ity of tablet 00:00: mouth 00 daily. Medical [facility] amLODIPine 2020-0 Yes [id number] 10mg Take 1 [facility] 10 mg 8-06 tablet by ity of tablet 00:00: mouth [place] 00 daily. [facility] hydrALAZINE 2020-0 Yes [id number] 10mg Take 1 [facility] 10 mg 8-06 tablet by ity of tablet 00:00: mouth 2 (two) Medical times Branch daily. albuterol 2020-0 Yes [id number] 2{puff} Inhale 2 [facility] (PROAIR 8-06 Puffs ity of HFA) 90 00:00: every 4 [place] mcg/actuati 00 (four) Medica l on inhaler hours as Branc h needed for Wheezing or Shortness of Breath. Use 1 puff by mouth every 4 to 6 hours as needed for wheezing fluticasone 2020-0 Yes [id number] 1{puff} Inhale 1 [facility] propion-tigist 8-06 Puff every it y of meterol 00:00: 12 [place] (ADVAIR 00 (twelve) Medical DISKUS) hours. Branch 250-50 mcg/dose inhalation disk metoprolol 2020-0 Yes [id number] 50mg Take 1 [facility] nivers tartrate 50 8-06 tablet by ity of mg tablet 00:00: mouth 2 (two) Medical times Branch daily. citalopram 2020-0 Yes [id number] 20mg Take 1 [facility] 20 mg 8-06 tablet by ity of tablet 00:00: mouth [place] 00 daily. Medical Branch losartan 2020-0 Yes [id number] 100mg Take 1 [facility] mo[facility] 100 mg 8-06 tablet by ity of tablet 00:00: mouth [place] 00 daily. [facility] amLODIPine 2020-0 Yes [id number] 10mg Take 1 [facility] n[facility] 10 mg 8-06 tablet by ity of tablet 00:00: mouth [place] 00 daily. [facility] hydrALAZINE 2020-0 Yes [id number] 10mg Take 1 [facility] 10 mg 8-06 tablet by ity of tablet 00:00: mouth 2 [place] (two) Medical times Branch daily. albuterol 2020-0 Yes [id number] 2{puff} Inhale 2 [facility] (PROAIR 8-06 Puffs ity of HFA) 90 00:00: every 4 [place] mcg/actuati 00 (four) Medica l on inhaler hours as Branc h needed for Wheezing or Shortness of Breath. Use 1 puff by mouth every 4 to 6 hours as needed for wheezing fluticasone 2020-0 Yes [id number] 1{puff} Inhale 1 [facility] propion-tigist 8-06 Puff every it y of meterol 00:00: 12 [place] (ADVAIR 00 (twelve) Medical DISKUS) hours. Branch 250-50 mcg/dose inhalation disk metoprolol 2020-0 Yes [id number] 50mg Take 1 [facility] nivers tartrate 50 8-06 tablet by ity of mg tablet 00:00: mouth 2 (two) Medical times Branch daily. citalopram 2020-0 Yes [id number] 20mg Take 1 [facility] 20 mg 8-06 tablet by ity of tablet 00:00: mouth 00 daily. Medical Branch losartan 2020-0 Yes [id number] 100mg Take 1 [facility] 100 mg 8-06 tablet by ity of tablet 00:00: mouth 00 daily. Medical [facility] amLODIPine 2020-0 Yes [id number] 10mg Take 1 [facility] n[facility] 10 mg 8-06 tablet by ity of tablet 00:00: mouth [place] 00 daily. [facility] hydrALAZINE 2020-0 Yes [id number] 10mg Take 1 [facility] 10 mg 8-06 tablet by ity of tablet 00:00: mouth 2 [place] (two) Medical times Branch daily. albuterol 2020-0 Yes [id number] 2{puff} Inhale 2 [facility] (PROAIR 8-06 Puffs ity of HFA) 90 00:00: every 4 [place] mcg/actuati 00 (four) Medica l on inhaler hours as Branc h needed for Wheezing or Shortness of Breath. Use 1 puff by mouth every 4 to 6 hours as needed for wheezing fluticasone 2020-0 Yes [id number] 1{puff} Inhale 1 [facility] propion-tigist 8-06 Puff every it y of meterol 00:00: 12 [place] (ADVAIR 00 (twelve) Medical DISKUS) hours. Branch 250-50 mcg/dose inhalation disk metoprolol 2020-0 Yes [id number] 50mg Take 1 [facility] nivers tartrate 50 8-06 tablet by ity of mg tablet 00:00: mouth 2 (two) Medical times Branch daily. citalopram 2020-0 Yes [id number] 20mg Take 1 [facility] 20 mg 8-06 tablet by ity of tablet 00:00: mouth [place] 00 daily. Medical [facility] losartan 2020-0 Yes [id number] 100mg Take 1 [facility] 100 mg 8-06 tablet by ity of tablet 00:00: mouth 00 daily. Medical Branch amLODIPine 2020-0 Yes [id number] 10mg Take 1 [facility] n[facility] 10 mg 8-06 tablet by ity of tablet 00:00: mouth [place] 00 daily. Medical [facility] hydrALAZINE 2020-0 Yes [id number] 10mg Take 1 [facility] 10 mg 8-06 tablet by ity of tablet 00:00: mouth 2 [place] (two) Medical times Branch daily. albuterol 2020-0 Yes [id number] 2{puff} Inhale 2 [facility] (PROAIR 8-06 Puffs ity of HFA) 90 00:00: every 4 [place] mcg/actuati 00 (four) Medica l on inhaler hours as Branc h needed for Wheezing or Shortness of Breath. Use 1 puff by mouth every 4 to 6 hours as needed for wheezing fluticasone 2020-0 Yes [id number] 1{puff} Inhale 1 [facility] propion-tigist 8-06 Puff every it y of meterol 00:00: 12 [place] (ADVAIR 00 (twelve) Medical DISKUS) hours. Branch 250-50 mcg/dose inhalation disk metoprolol 2020-0 Yes [id number] 50mg Take 1 [facility] nivers tartrate 50 8-06 tablet by ity of mg tablet 00:00: mouth 2 [place] (two) Medical times Branch daily. citalopram 2020-0 Yes [id number] 20mg Take 1 [facility] n[facility] 20 mg 8-06 tablet by ity of tablet 00:00: mouth [place] 00 daily. Medical Branch losartan 2020-0 Yes [id number] 100mg Take 1 [facility] mo[facility] 100 mg 8-06 tablet by ity of tablet 00:00: mouth [place] 00 daily. [facility] amLODIPine 2020-0 Yes [id number] 10mg Take 1 [facility] 10 mg 8-06 tablet by ity of tablet 00:00: mouth [place] 00 daily. Medical [facility] hydrALAZINE 2020-0 Yes [id number] 10mg Take 1 [facility] 10 mg 8-06 tablet by ity of tablet 00:00: mouth 2 [place] 00 (two) Medical times Branch daily. albuterol 2019-0 Yes [id number] 2{puff} Inhale 2 [facility] (PROAIR 8-06 Puffs ity of HFA) 90 00:00: every 4 [place] mcg/actuati 00 (four) Medica l on inhaler hours as Branc h needed for Wheezing or Shortness of Breath. Use 1 puff by mouth every 4 to 6 hours as needed for wheezing fluticasone 2020-0 Yes [id number] 1{puff} Inhale 1 [facility] propion-tigist 8-06 Puff every it y of meterol 00:00: 12 [place] (ADVAIR 00 (twelve) Medical DISKUS) hours. Branch 250-50 mcg/dose inhalation disk hydrALAZINE 2019-0 2020- No [id number] 10mg Take 1 [facility] 10 mg 8-06 07-08 tablet by ity of tablet 00:00: 00:00 mouth 2 [place] 00 :00 (two) Medical times Branch daily. albuterol 2019-0 2020- No [id number] 2{puff} Inhale 2 [facility] (PROAIR 8-06 07-08 Puffs ity of HFA) 90 00:00: 00:00 every 4 [place] mcg/actuati 00 :00 (four) Medica l on inhaler hours as Branc h needed for Wheezing or Shortness of Breath. Use 1 puff by mouth every 4 to 6 hours as needed for wheezing fluticasone 2020-0 2020- No [id number] 1{puff} Inhale 1 [facility] propion-tigist 8-06 07-08 Puff every i ty of meterol 00:00: 00:00 12 [place] (ADVAIR 00 :00 (twelve) Medical DISKUS) hours. Branch 250-50 mcg/dose inhalation disk hydrALAZINE 2020- No [id number] 10mg Take 1 [facility] 10 mg 06-26-08 tablet by ity of tablet 00:00: 00:00 mouth 2 [place] 00 :00 (two) Medical times Branch daily. albuterol 2020- No [id number] 2{puff} Inhale 2 [facility] (PROAIR 06-26-08 Puffs ity of HFA) 90 00:00: 00:00 every 4 [place] mcg/actuati 00 :00 (four) Medica l on inhaler hours as Branc h needed for Wheezing or Shortness of Breath. Use 1 puff by mouth every 4 to 6 hours as needed for wheezing fluticasone 2020- No [id number] 1{puff} Inhale 1 [facility] propion-tigist 06-26-08 Puff every i ty of meterol 00:00: 00:00 12 [place] (ADVAIR 00 :00 (twelve) Medical DISKUS) hours. Branch 250-50 mcg/dose inhalation disk metoprolol 2020- No [id number] 50mg Take 1 [facility] tartrate 50 06-26-30 tablet by it y of mg tablet 00:00: 00:00 mouth 2 [place] 00 :00 (two) Medical times Branch daily. losartan 2020- No [id number] 100mg Take 1 [facility] n[facility] 100 mg 06-26-30 tablet by ity of tablet 00:00: 00:00 mouth [place] 00 :00 daily. Medical [facility] amLODIPine 2020- No [id number] 10mg Take 1 [facility] 10 mg 06-26-30 tablet by ity of tablet 00:00: 00:00 mouth [place] 00 :00 daily. Medical Branch citalopram 2020- No [id number] 20mg Take 1 [facility] 20 mg 06-26 03-15 tablet by ity of tablet 00:00: 00:00 mouth [place] 00 :00 daily. Medical [facility] amLODIPine No [id number] 10mg Take 1 [facility] 10 mg 06-26-06 tablet by ity of tablet 00:00: 00:00 mouth [place] 00 :00 daily. Medical [facility] amLODIPine 2019- No [id number] 10mg Take 1 [facility] 10 mg 8-06 08-06 tablet by ity of tablet 00:00: 00:00 mouth [place] 00 :00 daily. Medical [facility] amLODIPine 2020-0 2020- No [id number] 10mg Take 1 [facility] 10 mg 8-06 08-06 tablet by ity of tablet 00:00: 00:00 mouth [place] 00 :00 daily. Medical [facility] amLODIPine 2020-0 2020- No [id number] 10mg Take 1 [facility] 10 mg 8-06 08-06 tablet by ity of tablet 00:00: 00:00 mouth [place] 00 :00 daily. Medical [facility] amLODIPine 2020-0 2020- No [id number] 10mg Take 1 [facility] 10 mg 8- 08-06 tablet by ity of tablet 00:00: 00:00 mouth [place] 00 :00 daily. Medical [facility] amLODIPine 2020-0 2020- No [id number] 10mg Take 1 [facility] 10 mg 8- 08-06 tablet by ity of tablet 00:00: 00:00 mouth [place] 00 :00 daily. Medical Branch sulfur 2020-0 2020- No 5mL [facility] hexafluorid 03-17 ity of e microsphr 17:00: 15:38 [place] (LUMASON) 00 :00 Medical injection 5 Branch [...] mouth ity of tablet 01:12: 00:00 daily. [place] 26 :00 Medical Branch metoprolol 2020-0 2020- No 50mg Take 50 mg [facility] tartrate 50 02-18-30 by mouth 2 i ty of mg tablet 01:12: 00:00 (two) [place] 26 :00 times Medical daily. Branch hydrALAZINE 2020-0 2020- No 10mg Take 10 mg [facility] 10 mg 02-18-30 by mouth 2 ity of tablet 01:12: 00:00 (two) [place] 26 :00 times Medical daily. Branch losartan [...] :00 daily. Medical Branch amLODIPine 2020-0 Yes [id number] 10mg Take 1 [facility] n[facility] 10 mg 3-30 tablet by ity of tablet 00:00: mouth 00 daily. Medical Branch hydrALAZINE 2020-0 Yes [id number] 10mg Take 1 [facility] 10 mg 3-30 tablet by ity of tablet 00:00: mouth (two) Medical times Branch daily. losartan 2020-0 Yes [id number] 100mg Take 1 [facility] mo[facility] 100 mg 3-30 tablet by ity of tablet 00:00: mouth 00 daily. Medical Branch metoprolol 2020-0 Yes [id number] 50mg Take 1 [facility] nivers tartrate 50 3-30 tablet by ity of mg tablet 00:00: mouth 2 00 (two) Medical times Branch daily. amLODIPine 2020-0 Yes [id number] 10mg Take 1 [facility] 10 mg 3-30 tablet by ity of tablet 00:00: mouth 00 daily. Medical [facility] hydrALAZINE 2020-0 Yes [id number] 10mg Take 1 [facility] 10 mg 3-30 tablet by ity of tablet 00:00: mouth 2 00 (two) Medical times Branch daily. losartan 2020-0 Yes [id number] 100mg Take 1 [facility] mo[facility] 100 mg 3-30 tablet by ity of tablet 00:00: mouth [place] 00 daily. Medical Branch metoprolol 2020-0 Yes [id number] 50mg Take 1 [facility] nivers tartrate 50 3-30 tablet by ity of mg tablet 00:00: mouth (two) Medical times Branch daily. amLODIPine 2020-0 Yes [id number] 10mg Take 1 [facility] 10 mg 3-30 tablet by ity of tablet 00:00: mouth 00 daily. Medical [facility] hydrALAZINE 2020-0 Yes [id number] 10mg Take 1 [facility] 10 mg 3-30 tablet by ity of tablet 00:00: mouth (two) Medical times Branch daily. losartan 2020-0 Yes [id number] 100mg Take 1 [facility] 100 mg 3-30 tablet by ity of tablet 00:00: mouth 00 daily. Medical Branch metoprolol 2020-0 Yes [id number] 50mg Take 1 [facility] nivers tartrate 50 3-30 tablet by ity of mg tablet 00:00: mouth (two) Medical times Branch daily. amLODIPine 2020-0 Yes [id number] 10mg Take 1 [facility] 10 mg 3-30 tablet by ity of tablet 00:00: mouth 00 daily. Medical [facility] hydrALAZINE 2020-0 Yes [id number] 10mg Take 1 [facility] 10 mg 3-30 tablet by ity of tablet 00:00: mouth (two) Medical times Branch daily. losartan 2020-0 Yes [id number] 100mg Take 1 [facility] 100 mg 3-30 tablet by ity of tablet 00:00: mouth 00 daily. Medical Branch metoprolol 2020-0 Yes [id number] 50mg Take 1 [facility] nivers tartrate 50 3-30 tablet by ity of mg tablet 00:00: mouth (two) Medical times Branch daily. amLODIPine 2020-0 Yes [id number] 10mg Take 1 [facility] 10 mg 3-30 tablet by ity of tablet 00:00: mouth 00 daily. Medical [facility] hydrALAZINE 2020-0 Yes [id number] 10mg Take 1 [facility] 10 mg 3-30 tablet by ity of tablet 00:00: mouth (two) Medical times Branch daily. losartan 2020-0 Yes [id number] 100mg Take 1 [facility] 100 mg 3-30 tablet by ity of tablet 00:00: mouth 00 daily. Medical Branch metoprolol 2020-0 Yes [id number] 50mg Take 1 [facility] nivers tartrate 50 3-30 tablet by ity of mg tablet 00:00: mouth 2 [place] 00 (two) Medical times Branch daily. amLODIPine 2020-0 2020- No [id number] 10mg Take 1 [facility] 10 mg 3-30 08-06 tablet by ity of tablet 00:00: 00:00 mouth [place] 00 :00 daily. Medical [facility] hydrALAZINE 2019-0 2020- No [id number] 10mg Take 1 [facility] 10 mg 3-30 08-06 tablet by ity of tablet 00:00: 00:00 mouth 2 [place] 00 :00 (two) Medical times Branch daily. losartan 2020-0 2020- No [id number] 100mg Take 1 [facility] n[facility] 100 mg 3-30 08-06 tablet by ity of tablet 00:00: 00:00 mouth [place] 00 :00 daily. Medical [facility] metoprolol 2019-0 2020- No [id number] 50mg Take 1 [facility] tartrate 50 3-30 08-06 tablet by it y of mg tablet 00:00: 00:00 mouth 2 [place] 00 :00 (two) Medical times Branch daily. amLODIPine 2019-0 2020- No [id number] 10mg Take 1 [facility] 10 mg 3-30 08-06 tablet by ity of tablet 00:00: 00:00 mouth [place] 00 :00 daily. Medical [facility] hydrALAZINE 2019-0 2020- No [id number] 10mg Take 1 [facility] 10 mg 3-30 08-06 tablet by ity of tablet 00:00: 00:00 mouth 2 [place] 00 :00 (two) Medical times Branch daily. losartan 2020-0 2020- No [id number] 100mg Take 1 [facility] n[facility] 100 mg 3-30 08-06 tablet by ity of tablet 00:00: 00:00 mouth [place] 00 :00 daily. [facility] metoprolol 2020-0 2020- No [id number] 50mg Take 1 [facility] tartrate 50 3-30 08-06 tablet by it y of mg tablet 00:00: 00:00 mouth 2 [place] 00 :00 (two) Medical times Branch daily. amLODIPine 2020-0 2020- No [id number] 10mg Take 1 [facility] 10 mg 3-30 08-06 tablet by ity of tablet 00:00: 00:00 mouth [place] 00 :00 daily. Medical [facility] hydrALAZINE 2019-0 2020- No [id number] 10mg Take 1 [facility] 10 mg 3-30 08-06 tablet by ity of tablet 00:00: 00:00 mouth 2 [place] 00 :00 (two) Medical times Branch daily. losartan 2019-2019- No [id number] 100mg Take 1 [facility] n[facility] 100 mg 3-30 08-06 tablet by ity of tablet 00:00: 00:00 mouth [place] 00 :00 daily. Medical [facility] metoprolol 2019-2019- No [id number] 50mg Take 1 [facility] tartrate 50 3-30 [...] mouth ity of tablet 21:10: 00:00 daily. [place] 02 :00 Medical Branch citalopram 2019-0 Yes [id number] 20mg Take 1 [facility] n[facility] 20 mg 2-27 tablet by ity of tablet 00:00: mouth [place] 00 daily. [facility] citalopram 2019-0 Yes [id number] 20mg Take 1 [facility] n[facility] 20 mg 2-27 tablet by ity of tablet 00:00: mouth [place] 00 daily. [facility] citalopram 2019-0 Yes [id number] 20mg Take 1 [facility] 20 mg 2-27 tablet by ity of tablet 00:00: mouth [place] 00 daily. [facility] citalopram 2019-0 Yes [id number] 20mg Take 1 [facility] 20 mg 2-27 tablet by ity of tablet 00:00: mouth [place] 00 daily. [facility] citalopram 2020-0 Yes [id number] 20mg Take 1 [facility] 20 mg 2-27 tablet by ity of tablet 00:00: mouth [place] 00 daily. [facility] citalopram 2019-0 Yes [id number] 20mg Take 1 [facility] 20 mg 2-27 tablet by ity of tablet 00:00: mouth [place] 00 daily. [facility] citalopram 2019-0 Yes [id number] 20mg Take 1 [facility] n[facility] 20 mg 2-27 tablet by ity of tablet 00:00: mouth [place] 00 daily. Medical [facility] citalopram 2020-0 Yes [id number] 20mg Take 1 U nivers 20 mg 2-27 tablet by ity of tablet 00:00: mouth [place] 00 daily. Medical Branch citalopram 2019-0 2020- No [id number] 20mg Take 1 [facility] 20 mg 2-27 08-06 tablet by ity of tablet 00:00: 00:00 mouth [place] 00 :00 daily. [facility] citalopram 2020-0 2020- No [id number] 20mg Take 1 [facility] 20 mg 2-27 08-06 tablet by ity of tablet 00:00: 00:00 mouth [place] 00 :00 daily. [facility] citalopram 2020-0 2020- No [id number] 20mg Take 1 [facility] 20 mg 2-27 [...] Puff 2 ity of meterol 17:19: (two) [place] (ADVAIR 00 times Medical DISKUS) daily. Branch [...] Puff 2 ity of meterol 17:19: (two) [place] (ADVAIR 00 times Medical DISKUS) daily. Branch [...] Puff 2 ity of meterol 17:19: (two) [place] (ADVAIR 00 times Medical DISKUS) daily. Branch [...] Me dical on inhaler needed for [facility] wheezing citalopram 2020-0 Yes 10mg Take 10 [...] Puff 2 ity of meterol 17:19: (two) [place] (ADVAIR 00 times Medical DISKUS) daily. Branch [...] Puff 2 ity of meterol 17:19: (two) [place] (ADVAIR 00 times Medical DISKUS) daily. Branch [...] Branch vitamin B 2020-0 Yes Take by [facility] [place] [facility] ers complex (B 2-20 mouth ity of COMPLEX-VIT 17:19: daily. [place]ord[place] s LEON B12 Medical ORAL) Branch diphenhydra 2020-0 Yes Take by [facility] mine HCl 2-20 mouth ity of (ALLERGY 17:19: daily. [place] RELIEF Medical ORAL) Branch aspirin 81 2020-0 Yes 81mg Take 81 mg U nivers mg chewable 2-20 by mouth ity of tablet 17:19: daily. [place] [facility] vitamin B 2020-0 Yes Take by [facility] [place] [facility] ers complex (B 2-20 mouth ity of [...] RELIEF Medical ORAL) Branch fluticasone 2020-0 Yes [id number] 1{puff} Inhale 1 Univers propion-tigist 2-20 Puff every it y of meterol 00:00: 12 [place] (ADVAIR 00 (twelve) Medical DISKUS) hours. Branch 250-50 mcg/dose inhalation disk albuterol 2020-0 Yes [id number] 2{puff} Inhale 2 [facility] (PROAIR 2-20 Puffs ity of HFA) 90 00:00: every 6 [place] mcg/actuati 00 (six) Medical on inhaler hours as Branc h needed for Wheezing or Shortness of Breath (provided through OAT program). fluticasone 2020-0 Yes [id number] 1{puff} Inhale 1 [facility] propion-tigist 2-20 Puff every it y of meterol 00:00: 12 [place] (ADVAIR 00 (twelve) Medical DISKUS) hours. Branch 250-50 mcg/dose inhalation disk albuterol 2020-0 Yes [id number] 2{puff} Inhale 2 [facility] (PROAIR 2-20 Puffs ity of HFA) 90 00:00: every 6 [place] mcg/actuati 00 (six) Medical on inhaler hours as Branc h needed for Wheezing or Shortness of Breath (provided through OATH program). fluticasone 2020-0 Yes [id number] 1{puff} Inhale 1 [facility] propion-tigist 2-20 Puff every it y of meterol 00:00: 12 [place] (ADVAIR 00 (twelve) Medical DISKUS) hours. Branch 250-50 mcg/dose inhalation disk albuterol 2020-0 Yes [id number] 2{puff} Inhale 2 Univers (PROAIR 2-20 Puffs ity of HFA) 90 00:00: every 6 [place] mcg/actuati 00 (six) Medical on inhaler hours as Branc h needed for Wheezing or Shortness of Breath (provided through OATH program). fluticasone 2020-0 Yes [id number] 1{puff} Inhale 1 [facility] propion-tigist 2-20 Puff every it y of meterol 00:00: 12 [place] (ADVAIR 00 (twelve) Medical DISKUS) hours. Branch 250-50 mcg/dose inhalation disk albuterol 2020-0 Yes [id number] 2{puff} Inhale 2 Univers (PROAIR 2-20 Puffs ity of HFA) 90 00:00: every 6 [place] mcg/actuati 00 (six) Medical on inhaler hours as Branc h needed for Wheezing or Shortness of Breath (provided through OATH program). fluticasone 2020-0 Yes [id number] 1{puff} Inhale 1 [facility] propion-tigist 2-20 Puff every it y of meterol 00:00: 12 [place] (ADVAIR 00 (twelve) Medical DISKUS) hours. Branch 250-50 mcg/dose inhalation disk albuterol 2020-0 Yes [id number] 2{puff} Inhale 2 Univers (PROAIR 2-20 Puffs ity of HFA) 90 00:00: every 6 [place] mcg/actuati 00 (six) Medical on inhaler hours as Branc h needed for Wheezing or Shortness of Breath (provided through OATH program). fluticasone 2020-0 Yes [id number] 1{puff} Inhale 1 [facility] propion-tigist 2-20 Puff every it y of meterol 00:00: 12 [place] (ADVAIR 00 (twelve) Medical DISKUS) hours. Branch 250-50 mcg/dose inhalation disk albuterol 2020-0 Yes [id number] 2{puff} Inhale 2 Univers (PROAIR 2-20 Puffs ity of HFA) 90 00:00: every 6 [place] mcg/actuati 00 (six) Medical on inhaler hours as Branc h needed for Wheezing or Shortness of Breath (provided through OATH program). fluticasone 2020-0 Yes [id number] 1{puff} Inhale 1 [facility] propion-tigist 2-20 Puff every it y of meterol 00:00: 12 [place] (ADVAIR 00 (twelve) Medical DISKUS) hours. Branch 250-50 mcg/dose inhalation disk albuterol 2020-0 Yes [id number] 2{puff} Inhale 2 Univers (PROAIR 2-20 Puffs ity of HFA) 90 00:00: every 6 [place] mcg/actuati 00 (six) Medical on inhaler hours as Branc h needed for Wheezing or Shortness of Breath (provided through OATH program). fluticasone 2020-0 Yes [id number] 1{puff} Inhale 1 [facility] propion-tigist 2-20 Puff every it y of meterol 00:00: 12 [place] (ADVAIR 00 (twelve) Medical DISKUS) hours. Branch 250-50 mcg/dose inhalation disk albuterol 2020-0 Yes [id number] 2{puff} Inhale 2 Univers (PROAIR 2-20 Puffs ity of HFA) 90 00:00: every 6 [place] mcg/actuati 00 (six) Medical on inhaler hours as Branc h needed for Wheezing or Shortness of Breath (provided through OATH program). fluticasone 2020-0 Yes [id number] 1{puff} Inhale 1 [facility] propion-tigist 2-20 Puff every it y of meterol 00:00: 12 [place] (ADVAIR 00 (twelve) Medical DISKUS) hours. Branch 250-50 mcg/dose inhalation disk albuterol 2020-0 Yes [id number] 2{puff} Inhale 2 Univers (PROAIR 2-20 Puffs ity of HFA) 90 00:00: every 6 [place] mcg/actuati 00 (six) Medical on inhaler hours as Branc h needed for Wheezing or Shortness of Breath (provided through OATH program). fluticasone 2020-0 Yes [id number] 1{puff} Inhale 1 Univers propion-tigist 2-20 Puff every it y of meterol 00:00: 12 [place] (ADVAIR 00 (twelve) Medical DISKUS) hours. Branch 250-50 mcg/dose inhalation disk albuterol 2020-0 Yes [id number] 2{puff} Inhale 2 Univers (PROAIR 2-20 Puffs ity of HFA) 90 00:00: every 6 [place] mcg/actuati 00 (six) Medical on inhaler hours as Branc h needed for Wheezing or Shortness of Breath (provided through OATH program). fluticasone 2020-0 Yes [id number] 1{puff} Inhale 1 Univers propion-tigist 2-20 Puff every it y of meterol 00:00: 12 [place] (ADVAIR 00 (twelve) Medical DISKUS) hours. Branch 250-50 mcg/dose inhalation disk albuterol 2020-0 Yes [id number] 2{puff} Inhale 2 Univers (PROAIR 2-20 Puffs ity of HFA) 90 00:00: every 6 [place] mcg/actuati 00 (six) Medical on inhaler hours as Branc h needed for Wheezing or Shortness of Breath (provided through OATH program). fluticasone 2020-0 Yes [id number] 1{puff} Inhale 1 Univers propion-tigist 2-20 Puff every it y of meterol 00:00: 12 [place] (ADVAIR 00 (twelve) Medical DISKUS) hours. Branch 250-50 mcg/dose inhalation disk albuterol 2020-0 Yes [id number] 2{puff} Inhale 2 Univers (PROAIR 2-20 Puffs ity of HFA) 90 00:00: every 6 [place] mcg/actuati 00 (six) Medical on inhaler hours as Branc h needed for Wheezing or Shortness of Breath (provided through OATH program). fluticasone 2020-0 Yes [id number] 1{puff} Inhale 1 Univers propion-tigist 2-20 Puff every it y of meterol 00:00: 12 [place] (ADVAIR 00 (twelve) Medical DISKUS) hours. Branch 250-50 mcg/dose inhalation disk albuterol 2020-0 Yes [id number] 2{puff} Inhale 2 Univers (PROAIR 2-20 Puffs ity of HFA) 90 00:00: every 6 [place] mcg/actuati 00 (six) Medical on inhaler hours as Branc h needed for Wheezing or Shortness of Breath (provided through OATH program). fluticasone 2020-0 Yes [id number] 1{puff} Inhale 1 Univers propion-tigist 2-20 Puff every it y of meterol 00:00: 12 [place] (ADVAIR 00 (twelve) Medical DISKUS) hours. Branch 250-50 mcg/dose inhalation disk albuterol 2020-0 Yes [id number] 2{puff} Inhale 2 Univers (PROAIR 2-20 Puffs ity of HFA) 90 00:00: every 6 [place] mcg/actuati 00 (six) Medical on inhaler hours as Branc h needed for Wheezing or Shortness of Breath (provided through OATH program). fluticasone 2020-0 2020- No [id number] 1{puff} Inhale 1 Univers propion-tigist 2-20 08-06 Puff every i ty of meterol 00:00: 00:00 12 [place] (ADVAIR 00 :00 (twelve) Medical DISKUS) hours. Branch 250-50 mcg/dose inhalation disk albuterol 2020-0 2020- No [id number] 2{puff} Inhale 2 Univers (PROAIR 2-20 08-06 Puffs ity of HFA) 90 00:00: 00:00 every 6 [place] mcg/actuati 00 :00 (six) Medical on inhaler hours as Branc h needed for Wheezing or Shortness of Breath (provided through OATH program). fluticasone 2020-0 2020- No [id number] 1{puff} Inhale 1 Univers propion-tigist 2-20 08-06 Puff every i ty of meterol 00:00: 00:00 12 [place] (ADVAIR 00 :00 (twelve) Medical DISKUS) hours. Branch 250-50 mcg/dose inhalation disk albuterol 2020-0 2020- No [id number] 2{puff} Inhale 2 Univers (PROAIR 2-20 08-06 Puffs ity of HFA) 90 00:00: 00:00 every 6 [place] mcg/actuati 00 :00 (six) Medical on inhaler hours as Branc h needed for Wheezing or Shortness of Breath (provided through OATH program). fluticasone 2020-0 2020- No [id number] 1{puff} Inhale 1 Univers propion-tigist 2-20 08-06 Puff every i ty of meterol 00:00: 00:00 12 [place] (ADVAIR 00 :00 (twelve) Medical DISKUS) hours. Branch 250-50 mcg/dose inhalation disk albuterol 2020-0 2020- No [id number] 2{puff} Inhale 2 Univers (PROAIR 2-20 08-06 Puffs ity of HFA) 90 00:00: 00:00 every 6 [place] mcg/actuati 00 :00 (six) Medical on inhaler hours as Branc h needed for Wheezing or Shortness of Breath (provided through OATH program). Immunizations Ordered Filled Immunization Date Status Comments [facility] e Immunization Name Name Influenza Virus 2021-11-01 Completed Universit y of Vaccine Quad IM, 00:00:00 [place] Me dical Preserv and ABX Branch Free 6 MO-64 YRS Influenza Virus 2021-11-01 Completed Universit y of Vaccine Quad IM, 00:00:00 [place] Me dical Preserv and ABX Branch Free 6 MO-64 YRS SARS-COV-2 COVID-19 2021-03-16 Completed Unive rsity of MODERNA VACCINE 00:00:00 [facility] ical Branch SARS-COV-2 COVID-19 2021-03-16 Completed Unive rsity of MODERNA VACCINE 00:00:00 [facility] ical Branch SARS-COV-2 COVID-19 2021-03-16 Completed Unive rsity of MODERNA VACCINE 00:00[facility]00 [facility]2 COVID-19 2021-03-16 Completed Unive rsity of MODERNA VACCINE 00:00:00 [facility] Influ[facility] Virus 2020-09-18 Completed Universit y [...] y of Vaccine Quad .5 mL 00:00:00 [place] Medical IM 6+ MO Branch Influenza Virus [...] y of Vaccine Quad .5 mL 00:00:00 [place] Medical IM 6+ MO Branch Influenza Virus 2020-09-18 Completed Universit y of Vaccine Quad .5 mL 00:00:00 [place] Medical IM 6+ MO Branch Influenza Virus 2020-09-18 Completed Universit y of Vaccine Quad .5 mL 00:00:00 [place] Medical IM 6+ MO Branch Influenza Virus 2020-09-18 Completed Universit y of Vaccine Quad .5 mL 00:00:00 [place] Medical IM 6+ MO Branch Influenza Virus 2020-09-18 Completed Universit y of Vaccine Quad .5 mL 00:00:00 [place] Medical 6+ MO Branch Pneumococcal 2020-01-11 Completed University o f Polysaccharide, 00:00:00 [place] Med ical PPSV23 (PNEUMOVAX) Branch Zoster Vaccine 2020-01-11 Completed University of Recombinant 00:00:00 [facility] Pneumococcal 2020-01-11 Completed University o f Polysaccharide, 00:00:00 [place] Med ical PPSV23 (PNEUMOVAX) [place] Zoster Vaccine 2020-01-11 Completed University of Recombinant 00:00:00 [facility] Pneumococcal 2020-01-11 Completed University o f Polysaccharide, 00:00:00 [place] Med ical PPSV23 (PNEUMOVAX) [place] Zoster Vaccine 2020-01-11 Completed University of Recombinant 00:00:00 [facility] Pneumococcal 2020-01-11 Completed University o f Polysaccharide, 00:00:00 [place] Med ical PPSV23 (PNEUMOVAX) Branch Zoster Vaccine 2020-01-11 Completed University of Recombinant 00:00:00 [facility] Pneumococcal 2020-01-11 Completed University o f Polysaccharide, 00:00:00 [place] Med ical PPSV23 (PNEUMOVAX) [place] Zoster Vaccine 2020-01-11 Completed University of Recombinant 00:00:00 [facility] Pneumococcal 2020-01-11 Completed University o f Polysaccharide, 00:00:00 [place] Med ical PPSV23 (PNEUMOVAX) [place] Zoster Vaccine 2020-01-11 Completed University of Recombinant 00:00:00 [facility] Pneumococcal 2020-01-11 Completed University o f Polysaccharide, 00:00:00 [place] Med ical PPSV23 (PNEUMOVAX) [place] Zoster Vaccine 2020-01-11 Completed University of Recombinant 00:00:00 [facility] Pneumococcal 2020-01-11 Completed University o f Polysaccharide, 00:00:00 [place] Med ical PPSV23 (PNEUMOVAX) [place] Zoster Vaccine 2020-01-11 Completed University of Recombinant 00:00:00 [facility] Pneumococcal 2020-01-11 Completed University o f Polysaccharide, 00:00:00 [place] Med ical PPSV23 (PNEUMOVAX) [place] Zoster Vaccine 2020-01-11 Completed University of Recombinant 00:00:00 [facility] Pneumococcal 2020-01-11 Completed University o f Polysaccharide, 00:00:00 [place] Med ical PPSV23 (PNEUMOVAX) [place] Zoster Vaccine 2020-01-11 Completed University of Recombinant 00:00:00 [facility] Pneumococcal 2020-01-11 Completed University o f Polysaccharide, 00:00:00 [place] Med ical PPSV23 (PNEUMOVAX) [place] Zoster Vaccine 2020-01-11 Completed University of Recombinant 00:00:00 [facility] Pneumococcal 2020-01-11 Completed University o f Polysaccharide, 00:00:00 [place] Med ical PPSV23 (PNEUMOVAX) [place] Zoster Vaccine 2020-01-11 Completed University of Recombinant 00:00:00 [facility] Pneumococcal 2020-01-11 Completed University o f Polysaccharide, 00:00:00 [place] Med ical PPSV23 (PNEUMOVAX) [place] Zoster Vaccine 2020-01-11 Completed University of Recombinant 00:00:00 [facility] Pneumococcal 2020-01-11 Completed University o f Polysaccharide, 00:00:00 [place] Med ical PPSV23 (PNEUMOVAX) [place] Zoster Vaccine 2020-01-11 Completed University of Recombinant 00:00:00 [facility] Pneumococcal 2020-01-11 Completed University o f Polysaccharide, 00:00:00 [place] Med ical PPSV23 (PNEUMOVAX) [place] Zoster Vaccine 2020-01-11 Completed University of Recombinant 00:00:00 [facility] Pneumococcal 2020-01-11 Completed University o f Polysaccharide, 00:00:00 [place] Med ical PPSV23 (PNEUMOVAX) [place] Zoster Vaccine 2020-01-11 Completed University of Recombinant 00:00:00 [facility] Pneumococcal 2020-01-11 Completed University o f Polysaccharide, 00:00:00 [place] Med ical PPSV23 (PNEUMOVAX) [place] Zoster Vaccine 2020-01-11 Completed University of Recombinant 00:00:00 [facility] Pneumococcal 2020-01-11 Completed University o f Polysaccharide, 00:00:00 [place] Med ical PPSV23 (PNEUMOVAX) [place] Zoster Vaccine 2020-01-11 Completed University of Recombinant 00:00:00 [facility] Pneumococcal 2020-01-11 Completed University o f Polysaccharide, 00:00:00 [place] Med ical PPSV23 (PNEUMOVAX) [place] Zoster Vaccine 2020-01-11 Completed University of Recombinant 00:00:00 [facility] Pneumococcal 2020-01-11 Completed University o f Polysaccharide, 00:00:00 [place] Med ical PPSV23 (PNEUMOVAX) [place] Zoster Vaccine 2020-01-11 Completed University of Recombinant 00:00:00 [facility] Pneumococcal 2020-01-11 Completed University o f Polysaccharide, 00:00:00 [place] Med ical PPSV23 (PNEUMOVAX) [place] Zoster Vaccine 2020-01-11 Completed University of Recombinant 00:00:00 [facility] Pneumococcal 2020-01-11 Completed University o f Polysaccharide, 00:00:00 [place] Med ical PPSV23 (PNEUMOVAX) [place] Zoster Vaccine 2020-01-11 Completed University of Recombinant 00:00:00 [facility] Pneumococcal 2020-01-11 Completed University o f Polysaccharide, 00:00:00 [place] Med ical PPSV23 (PNEUMOVAX) Branch Zoster Vaccine 2020-01-11 Completed University of Recombinant 00:00:00 [facility] Pneumococcal 2020-01-11 Completed University o f Polysaccharide, 00:00:00 [place] Med ical PPSV23 (PNEUMOVAX) [place] Zoster Vaccine 2020-01-11 Completed University of Recombinant 00:00:00 [facility] Pneumococcal 2020-01-11 Completed University o f Polysaccharide, 00:00:00 [place] Med ical PPSV23 (PNEUMOVAX) [place] Zoster Vaccine 2020-01-11 Completed University of Recombinant 00:00:00 [facility] Pneumococcal 2020-01-11 Completed University o f Polysaccharide, 00:00:00 [place] Med ical PPSV23 (PNEUMOVAX) [place] Zoster Vaccine 2020-01-11 Completed University of Recombinant 00:00:00 [facility] Pneumococcal 2020-01-11 Completed University o f Polysaccharide, 00:00:00 [place] Med ical PPSV23 (PNEUMOVAX) [place] Zoster Vaccine 2020-01-11 Completed University of Recombinant 00:00:00 [facility] Pneumococcal 2020-01-11 Completed University o f Polysaccharide, 00:00:00 [place] Med ical PPSV23 (PNEUMOVAX) [place] Zoster Vaccine 2020-01-11 Completed University of Recombinant 00:00:00 [facility] Pneumococcal 2020-01-11 Completed University o f Polysaccharide, 00:00:00 [place] Med ical PPSV23 (PNEUMOVAX) [place] Zoster Vaccine 2020-01-11 Completed University of Recombinant 00:00:00 [facility] Pneumococcal 2020-01-11 Completed University o f Polysaccharide, 00:00:00 [place] Med ical PPSV23 (PNEUMOVAX) [place] Zoster Vaccine 2020-01-11 Completed University of Recombinant 00:00:00 [facility] Pneumococcal 2020-01-11 Completed University o f Polysaccharide, 00:00:00 [place] Med ical PPSV23 (PNEUMOVAX) [place] Zoster Vaccine 2020-01-11 Completed University of Recombinant 00:00:00 [facility] Pneumococcal 2020-01-11 Completed University o f Polysaccharide, 00:00:00 [place] Med ical PPSV23 (PNEUMOVAX) [place] Zoster Vaccine 2020-01-11 Completed University of Recombinant 00:00:00 [facility] Pneumococcal 2020-01-11 Completed University o f Polysaccharide, 00:00:00 [place] Med ical PPSV23 (PNEUMOVAX) [place] Zoster Vaccine 2020-01-11 Completed University of Recombinant 00:00:00 [facility] Pneumococcal 2020-01-11 Completed University o f Polysaccharide, 00:00:00 [place] Med ical PPSV23 (PNEUMOVAX) [place] Zoster Vaccine 2020-01-11 Completed University of Recombinant 00:00:00 [facility] Pneumococcal 2020-01-11 Completed University o f Polysaccharide, 00:00:00 [place] Med ical PPSV23 (PNEUMOVAX) [place] Zoster Vaccine 2020-01-11 Completed University of Recombinant 00:00:00 [facility] Pneumococcal 2020-01-11 Completed University o f Polysaccharide, 00:00:00 [place] Med ical PPSV23 (PNEUMOVAX) [place] Zoster Vaccine 2020-01-11 Completed University of Recombinant 00:00:00 [facility] Pneumococcal 2020-01-11 Completed University o f Polysaccharide, 00:00:00 [place] Med ical PPSV23 (PNEUMOVAX) [place] Zoster Vaccine 2020-01-11 Completed University of Recombinant 00:00:00 [facility] Pneumococcal 2020-01-11 Completed University o f Polysaccharide, 00:00:00 [place] Med ical PPSV23 (PNEUMOVAX) [place] Zoster Vaccine 2020-01-11 Completed University of Recombinant 00:00:00 [facility] Pneumococcal 2020-01-11 Completed University o f Polysaccharide, 00:00:00 [place] Med ical PPSV23 (PNEUMOVAX) [place] Zoster Vaccine 2020-01-11 Completed University of Recombinant 00:00:00 [facility] Pneumococcal 2020-01-11 Completed University o f Polysaccharide, 00:00:00 [place] Med ical PPSV23 (PNEUMOVAX) [place] Zoster Vaccine 2020-01-11 Completed University of Recombinant 00:00:00 [facility] Pneumococcal 2020-01-11 Completed University o f Polysaccharide, 00:00:00 [place] Med ical PPSV23 (PNEUMOVAX) [place] Zoster Vaccine 2020-01-11 Completed University of Recombinant 00:00:00 [facility] Pneumococcal 2020-01-11 Completed University o f Polysaccharide, 00:00:00 [place] Med ical PPSV23 (PNEUMOVAX) [place] Zoster Vaccine 2020-01-11 Completed University of Recombinant 00:00:00 [facility] Pneumococcal 2020-01-11 Completed University o f Polysaccharide, 00:00:00 [place] Med ical PPSV23 (PNEUMOVAX) [place] Zoster Vaccine 2020-01-11 Completed University of Recombinant 00:00:00 [facility] Pneumococcal 2020-01-11 Completed University o f Polysaccharide, 00:00:00 [place] Med ical PPSV23 (PNEUMOVAX) [place] Zoster Vaccine 2020-01-11 Completed University of Recombinant 00:00:00 [facility] Pneumococcal 2020-01-11 Completed University o f Polysaccharide, 00:00:00 [place] Med ical PPSV23 (PNEUMOVAX) [place] Zoster Vaccine 2020-01-11 Completed University of Recombinant 00:00:00 [facility] Pneumococcal 2020-01-11 Completed University o f Polysaccharide, 00:00:00 [place] Med ical PPSV23 (PNEUMOVAX) [place] Zoster Vaccine 2020-01-11 Completed University of Recombinant 00:00:00 [facility] Pneumococcal 2020-01-11 Completed University o f Polysaccharide, 00:00:00 [place] Med ical PPSV23 (PNEUMOVAX) [place] Zoster Vaccine 2020-01-11 Completed University of Recombinant 00:00:00 [facility] Pneumococcal 2020-01-11 Completed University o f Polysaccharide, 00:00:00 [facility] ical PPSV23 (PNEUMOVAX) [place] Zoster Vaccine 2020-01-11 Completed University of Recombinant 00:00:00 [facility] Pneumococcal 2020-01-11 Completed University o f Polysaccharide, 00:00:00 [place] Med ical PPSV23 (PNEUMOVAX) [place] Zoster Vaccine 2020-01-11 Completed University of Recombinant 00:00:00 [facility] Pneumococcal 2020-01-11 Completed University o f Polysaccharide, 00:00:00 [place] Med ical PPSV23 (PNEUMOVAX) [place] Zoster Vaccine 2020-01-11 Completed University of Recombinant 00:00:00 [facility] Pneumococcal 2020-01-11 Completed University o f Polysaccharide, 00:00:00 [place] Med ical PPSV23 (PNEUMOVAX) [place] Zoster Vaccine 2020-01-11 Completed University of Recombinant 00:00:00 [facility] Pneumococcal 2020-01-11 Completed University o f Polysaccharide, 00:00:00 [place] Med ical PPSV23 (PNEUMOVAX) [place] Zoster Vaccine 2020-01-11 Completed University of Recombinant 00:00:00 [facility] Pneumococcal 2020-01-11 Completed University o f Polysaccharide, 00:00:00 [place] Med ical PPSV23 (PNEUMOVAX) [place] Zoster Vaccine 2020-01-11 Completed University of Recombinant 00:00:00 [facility] Pneumococcal 2020-01-11 Completed University o f Polysaccharide, 00:00:00 [place] Med ical PPSV23 (PNEUMOVAX) [place] Zoster Vaccine 2020-01-11 Completed University of Recombinant 00:00:00 [facility] Pneumococcal 2020-01-11 Completed University o f Polysaccharide, 00:00:00 [place] Med ical PPSV23 (PNEUMOVAX) Branch Zoster Vaccine 2020-01-11 Completed University of Recombinant 00:00:00 [facility] Pneumococcal 2020-01-11 Completed University o f Polysaccharide, 00:00:00 [place] Med ical PPSV23 (PNEUMOVAX) [place] Zoster Vaccine 2020-01-11 Completed University of Recombinant 00:00:00 [facility] Pneumococcal 2020-01-11 Completed University o f Polysaccharide, 00:00:00 [place] Med ical PPSV23 (PNEUMOVAX) [place] Zoster Vaccine 2020-01-11 Completed University of Recombinant 00:00:00 [facility] Pneumococcal 2020-01-11 Completed University o f Polysaccharide, 00:00:00 [place] Med ical PPSV23 (PNEUMOVAX) [place] Zoster Vaccine 2020-01-11 Completed University of Recombinant 00:00:00 [facility] Pneumococcal 2020-01-11 Completed University o f Polysaccharide, 00:00:00 [place] Med ical PPSV23 (PNEUMOVAX) [place] Zoster Vaccine 2020-01-11 Completed University of Recombinant 00:00:00 [facility] Pneumococcal 2020-01-11 Completed University o f Polysaccharide, 00:00:00 [place] Med ical PPSV23 (PNEUMOVAX) [place] Zoster Vaccine 2020-01-11 Completed University of Recombinant 00:00:00 [facility] Pneumococcal 2020-01-11 Completed University o f Polysaccharide, 00:00:00 [place] Med ical PPSV23 (PNEUMOVAX) [place] Zoster Vaccine 2020-01-11 Completed University of Recombinant 00:00:00 [facility] Pneumococcal 2020-01-11 Completed University o f Polysaccharide, 00:00:00 [place] [facility] PPSV23 (PNEUMOVAX) [place] Zoster Vaccine 2020-01-11 Completed University of Recombinant 00:00:00 [facility] Pneumococcal 2020-01-11 Completed University o f Polysaccharide, 00:00:00 [place] [facility] PPSV23 (PNEUMOVAX) [place] Zoster Vaccine 2020-01-11 Completed University of Recombinant [...] y of Vaccine Quad .5 mL 00:00:00 [place] [facility] 6+ MO Branch Influenza Virus 2020-01-10 [...] Branch TDAP 2014-10-31 Completed University of 00:00:00 [facility] TDAP 2014-10-31 Completed University of 00:00:00 [facility] TDAP 2014-10-31 Completed University of 00:00:00 [facility] TDAP 2014-10-31 Completed University of 00:00:00 [facility] TDAP 2014-10-31 Completed University of 00:00:00 [facility] TDAP 2014-10-31 Completed University of 00:00:00 [facility] TDAP 2014-10-31 Completed University of 00:00:00 [facility] TDAP 2014-10-31 Completed University of 00:00:00 [facility] TDAP 2014-10-31 Completed University of 00:00:00 [facility] TDAP 2014-10-31 Completed University of 00:00:00 [facility] TDAP 2014-10-31 Completed University of 00:00:00 [facility] TDAP 2014-10-31 Completed University of 00:00:00 [facility] TDAP 2014-10-31 Completed University of 00:00:00 [facility] TDAP 2014-10-31 Completed University of 00:00:00 [facility] TDAP 2014-10-31 Completed University of 00:00:00 [facility] TDAP 2014-10-31 Completed University of 00:00:00 [facility] TDAP 2014-10-31 Completed University of 00:00:00 [facility] TDAP 2014-10-31 Completed University of 00:00:00 [facility] TDAP 2014-10-31 Completed University of 00:00:00 [facility] TDAP 2014-10-31 Completed University of 00:00:00 [facility] TDAP 2014-10-31 Completed University of 00:00:00 [facility] TDAP 2014-10-31 Completed University of 00:00:00 [facility] TDAP 2014-10-31 Completed University of 00:00:00 [facility] TDAP 2014-10-31 Completed University of 00:00:00 [facility] TDAP 2014-10-31 Completed University of 00:00:00 [facility] TDAP 2014-10-31 Completed University of 00:00:00 [facility] TDAP 2014-10-31 Completed University of 00:00:00 [facility] Tdap 2014-10-31 Completed University of 00:00:00 [facility] TDAP 2014-10-31 Completed University of 00:00:00 [facility] TDAP 2014-10-31 Completed University of 00:00:00 [facility] Tdap 2014-10-31 Completed University of 00:00:00 [facility] Tdap 2014-10-31 Completed University of 00:00:00 [facility] Tdap 2014-10-31 Completed University of 00:00:00 [facility] Tdap 2014-10-31 Completed University of 00:00:00 [facility] Tdap 2014-10-31 Completed University of 00:00:00 [facility] Tdap 2014-10-31 Completed University of 00:00:00 [facility] Tdap 2014-10-31 Completed University of 00:00:00 [facility] Tdap 2014-10-31 Completed University of 00:00:00 [facility] Tdap 2014-10-31 Completed University of 00:00:00 [facility] Tdap 2014-10-31 Completed University of 00:00:00 [facility] Tdap 2014-10-31 Completed University of 00:00:00 [facility] Tdap 2014-10-31 Completed University of 00:00:00 [facility] Tdap 2014-10-31 Completed University of 00:00:00 [facility] TDAP 2014-10-31 Completed University of 00:00:00 [facility] TDAP 2014-10-31 Completed University of 00:00:00 [facility] TDAP 2014-10-31 Completed University of 00:00:00 [facility] TDAP 2014-10-31 Completed University of 00:00:00 [facility] TDAP 2014-10-31 Completed University of 00:00:00 [facility] TDAP 2014-10-31 Completed University of 00:00:00 [facility] TDAP 2014-10-31 Completed University of 00:00:00 [facility] TDAP 2014-10-31 Completed University of 00:00:00 [facility] TDAP 2014-10-31 Completed University of 00:00:00 [facility] TDAP 2014-10-31 Completed University of 00:00:00 [facility] TDAP 2014-10-31 Completed University of 00:00:00 [facility] TDAP 2014-10-31 Completed University of 00:00:00 [facility] TDAP 2014-10-31 Completed University of 00:00:00 [facility] TDAP 2014-10-31 Completed University of 00:00:00 [facility] TDAP 2014-10-31 Completed University of 00:00:00 [facility] TDAP 2014-10-31 Completed University of 00:00:00 [facility] TDAP 2014-10-31 Completed University of 00:00:00 [facility] TDAP 2014-10-31 Completed University of 00:00:00 [facility] TDAP 2014-10-31 Completed University of 00:00:00 [facility] TDAP 2014-10-31 Completed University of 00:00:00 [facility] TDAP 2014-10-31 Completed University of 00:00:00 [facility] TDAP 2014-10-31 Completed University of 00:00:00 [facility] TDAP 2014-10-31 Completed University of 00:00:00 [facility] Vital Signs Vital Name Observation Time Observation Value Comments Source Systolic blood 2021-11-01 17:16:00 138 mm[Hg] Univer sity of pressure [facility] Diastolic blood 2021-11-01 17:16:00 69 mm[Hg] Unive rsity of pressure [facility] Heart rate 2021-11-01 17:16:00 97 /min [facility] Body temperature 2021-11-01 17:16:00 36.11 Carolann Univ ersity of [facility] Respiratory rate 2021-11-01 17:16:00 16 /min Univ ersity of [facility] Oxygen saturation in 2021-11-01 17:16:00 95 /min University of Arterial blood by [place] [facility] Pulse oximetry Branch Body weight 2021-11-01 10:12:00 160.828 kg [facility] BMI 2021-11-01 10:12:00 60.86 kg/m2 [facility] Body height 2021-10-29 21:09:00 162.6 cm [facility] Systolic blood 2021-10-26 08:00:00 160 mm[Hg] Univer sity of pressure [facility] Diastolic blood 2021-10-26 08:00:00 74 mm[Hg] Unive rsity of pressure [facility] Heart rate 2021-10-26 08:00:00 86 /[facility] [place] Respiratory rate 2021-10-26 08:00:00 20 /min Univ ersity of [facility] Oxygen saturation in 2021-10-26 08:00:00 95 /min University of Arterial blood by [employer] Pulse oximetry Branch Body temperature 2021-10-26 04:03:00 37.61 Carolann Univ ersity of [facility] Body height 2021-10-26 04:03:00 162.6 cm Universi ty of [facility] Body weight 2021-10-26 04:03:00 153.316 kg Universi ty of [facility] BMI 2021-10-26 04:03:00 58.02 kg/m2 Universi ty of [facility] Body weight 2021-07-31 16:17:00 151.048 kg Universi ty of [facility] BMI 2021-07-31 16:17:00 60.91 kg/m2 Universi ty of [facility] Systolic blood 2021-06-18 15:36:00 125 mm[Hg] Univer sity of pressure [facility] Diastolic blood 2021-06-18 15:36:00 71 mm[Hg] Unive rsity of pressure [facility] Heart rate 2021-06-18 15:36:00 68 /min Universi ty of [facility] Body temperature 2021-06-18 15:36:00 36.39 Carolann Univ ersity of [facility] Respiratory rate 2021-06-18 15:36:00 24 /min Univ ersity of [facility] Body height 2021-06-18 15:36:00 157.5 cm Universi ty of [facility] Body weight 2021-06-18 15:36:00 151.229 kg Universi ty of [facility] BMI 2021-06-18 15:36:00 60.98 kg/m2 Universi ty of [facility] Systolic blood 2021-05-28 18:43:00 127 mm[Hg] Univer sity of pressure [facility] Diastolic blood 2021-05-28 18:43:00 73 mm[Hg] Unive rsity of pressure [facility] Heart rate 2021-05-28 18:43:00 66 /min Universi ty of [facility] Body temperature 2021-05-28 18:43:00 35.83 Carolann Univ ersity of [facility] Respiratory rate 2021-05-28 18:43:00 20 /min Univ ersity of [facility] Body height 2021-05-28 18:43:00 157.5 cm Universi ty of [facility] Body weight 2021-05-28 18:43:00 153.497 kg Universi ty of [facility] BMI 2021-05-28 18:43:00 61.89 kg/m2 Universi ty of [facility] Systolic blood 2021-05-26 14:42:00 150 mm[Hg] Univer sity of pressure [facility] Diastolic blood 2021-05-26 14:42:00 73 mm[Hg] Unive rsity of pressure [facility] Heart rate 2021-05-26 14:42:00 77 /min Universi ty of [facility] Body temperature 2021-05-26 14:42:00 37.78 Carolann Univ ersity of [facility] Respiratory rate 2021-05-26 14:42:00 18 /min Univ ersity of [facility] Body weight 2021-05-26 14:42:00 152.862 kg Universi ty of [facility] [place] [facility] BMI 2021-05-26 14:42:00 57.85 kg/m2 Universi ty of [facility] [place] [facility] Oxygen saturation in 2021-05-26 14:42:00 98 /min University of Arterial blood by [employer] Pulse oximetry Branch Body temperature 2021-04-06 17:33:00 35.78 Carolann Univ ersity of [facility] Body weight 2021-04-06 17:33:00 152.862 kg Universi ty of [facility] BMI 2021-04-06 17:33:00 57.85 kg/m2 Universi ty of [facility] Systolic blood 2021-02-23 19:02:00 125 mm[Hg] Univer sity of pressure [facility] Diastolic blood 2021-02-23 19:02:00 74 mm[Hg] Unive rsity of pressure [facility] Heart rate 2021-02-23 18:53:00 71 /min Universi ty of [facility] Respiratory rate 2021-02-23 18:53:00 19 /min Univ ersity of [facility] Body height 2021-02-23 18:53:00 162.6 cm Universi ty of [facility] [place] [facility] Body weight 2021-02-23 18:53:00 153.497 kg Universi ty of [facility] [place] [facility] BMI 2021-02-23 18:53:00 58.09 kg/m2 Universi ty of [facility] Oxygen saturation in 2021-02-23 18:53:00 96 /min University of Arterial blood by [place] [facility] Pulse oxim[facility] Branch Systolic blood 2021-01-01 15:37:00 156 mm[Hg] Univer sity of pressure [facility] [place] [facility] Diastolic blood 2021-01-01 15:37:00 85 mm[Hg] Unive rsity of pressure [facility] Heart rate 2021-01-01 15:37:00 66 /min Universi ty of [place] [facility] [place] Body temperature 2021-01-01 15:37:00 36 Carolann Univ ersity of [facility] [place] [facility] Respiratory rate 2021-01-01 15:37:00 20 /min Univ ersity of [facility] Body height 2021-01-01 15:37:00 162.6 cm Universi ty of [place] [facility] [place] Body weight 2021-01-01 15:37:00 153.588 kg Universi ty of [facility] [place] [facility] BMI 2021-01-01 15:37:00 58.12 kg/m2 Universi ty of [facility] Oxygen saturation in 2021-01-01 15:37:00 98 /min University of Arterial blood by [facility] Pulse oximetry Branch Body weight 2020-10-08 17:11:00 153.407 kg Universi ty of [facility] [place] [facility] BMI 2020-10-08 17:11:00 61.86 kg/m2 Universi ty of [facility] Systolic blood 2020-09-18 14:20:00 129 mm[Hg] Univer sity of pressure [facility] Diastolic blood 2020-09-18 14:20:00 65 mm[Hg] Unive rsity of pressure [facility] Heart rate 2020-09-18 14:20:00 60 /min Universi ty of [facility] Body temperature 2020-09-18 14:20:00 35.94 Carolann Univ ersity of [facility] Respiratory rate 2020-09-18 14:20:00 20 /min Univ ersity of [facility] Body height 2020-09-18 14:20:00 157.5 cm Universi ty of [facility] Body weight 2020-09-18 14:20:00 148.326 kg Universi ty of [facility] BMI 2020-09-18 14:20:00 59.81 kg/m2 Universi ty of [facility] [place] [facility] Systolic blood 2020-06-26 14:30:00 118 mm[Hg] Univer sity of pressure [facility] Diastolic blood 2020-06-26 14:30:00 68 mm[Hg] Unive rsity of pressure [place] [facility] [place] Heart rate 2020-06-26 14:30:00 67 /min Universi ty of [facility] [place] [facility] Body temperature 2020-06-26 14:30:00 36.33 Carolann Univ ersity of [facility] [place] [facility] Respiratory rate 2020-06-26 14:30:00 20 /min Univ ersity of [facility] Body height 2020-06-26 14:30:00 157.5 cm Universi ty of [facility] [place] [facility] Body weight 2020-06-26 14:30:00 146.784 kg Universi ty of [place] [facility] BMI 2020-06-26 14:30:00 59.19 kg/m2 Universi ty of [facility] Oxygen saturation in 2020-06-26 14:30:00 97 /min University Arterial blood by [facility] Pulse oximetry Branch Systolic blood 2020-03-17 15:00:00 118 mm[Hg] Univer sity of pressure [facility] Diastolic blood 2020-03-17 15:00:00 72 mm[Hg] Unive rsity of pressure [facility] Heart rate 2020-03-17 15:00:00 68 /min Universi ty of [place] [facility] [place] Body height 2020-03-17 15:00:00 157.5 cm Universi ty of [place] [facility] [place] Body weight 2020-03-17 15:00:00 144.697 kg Universi ty of [facility] BMI 2020-03-17 15:00:00 58.35 kg/m2 Universi ty of [facility] Systolic blood 2020-01-10 16:34:00 124 mm[Hg] Univer sity of pressure [facility] Diastolic blood 2020-01-10 16:34:00 88 mm[Hg] Unive rsity of pressure [facility] Heart rate 2020-01-10 16:34:00 59 /min Universi ty of [facility] Body temperature 2020-01-10 16:34:00 36.28 Carolann Univ ersity of [facility] Respiratory rate 2020-01-10 16:34:00 24 /min Univ ersity of [facility] Body height 2020-01-10 16:34:00 157.5 cm Universi ty of [facility] Body weight 2020-01-10 16:34:00 145.423 kg Universi ty of [facility] BMI 2020-01-10 16:34:00 58.64 kg/m2 [facility] [place] Procedures Procedure Date / Time Performing Clinician Source Performed LIPASE 2021-11-01 10:29:00 Concepcion [facility] BASIC METABOLIC PANEL 2021-11-01 10:29:00 Long [facility] (NA, K, CL, CO2, GLUCOSE, Medica l Branch BUN, CREATININE, CA) CBC WITH DIFF 2021-11-01 10:29:00 [facility] 2021-10-31 10:35:00 Concepcion [facility] BASIC METABOLIC PANEL 2021-10-31 10:35:00 jose [facility] (NA, K, CL, CO2, GLUCOSE, Medica l Branch BUN, CREATININE, CA) CBC WITH DIFF 2021-10-31 10:35:00 [facility] 2021-10-30 10:43:00 Pancho [facility] BASIC METABOLIC PANEL 2021-10-30 10:43:00 Pancho [facility] (NA, K, CL, CO2, GLUCOSE, Medica l Branch BUN, CREATININE, CA) LIPID PANEL (30620)(TOTAL 2021-10-30 10:43:00 Cheli Deleon [facility] CHOLESTEROL, Medical Branch TRIGLYCERIDES, HDL) CBC WITH DIFF 2021-10-30 10:43:00 Pancho [facility] GLYCOSYLATED HEMOGLOBIN 2021-10-30 10:43:00 Pancho [facility] (A1C) Medical Branch TROPONIN I 2021-10-30 04:32:00 Jerardo Sharma [facility] US ABDOMEN LIMITED 2021-10-30 03:44:00 Jerardo Sharma [facility] CT ABDOMEN PELVIS W 2021-10-29 16:41:24 Josue Lutz [facility] CONTRAST [facility] Branch CT CHEST PULMONARY 2021-10-29 16:41:24 Josue Lutz [facility] ANGIOGRAM Medical Branch LIPASE 2021-10-29 15:30:00 Lutz, Josue [facility] MAGNESIUM 2021-10-29 15:30:00 Josue Lutz [facility] TROPONIN I 2021-10-29 15:30:00 Josue Lutz [facility] THYROID STIMULATING 2021-10-29 15:30:00 Cheli Deleon [facility] HORMONE [facility] COMP. METABOLIC PANEL 2021-10-29 15:30:00 Josue Lutz [facility] ([id number]) [facility] POCT TEST 2021-10-29 14:58:00 Josue Lutz [facility] URINALYSIS 2021-10-29 14:57:00 Josue Lutz [facility] LACTIC ACID WHOLE BLOOD 2021-10-29 14:57:00 Josue Lutz [facility] COVID-19 (ID NOW RAPID 2021-10-29 14:57:00 Josue Lutz [facility] TESTING) Medical Branch LAB ONLY COVID 2021-10-29 14:57:00 Josue Lutz [facility] HB ECG ROUTINE & RHYTHM 2021-10-29 14:56:46 Josue Lutz [facility] CBC WITH DIFF 2021-10-29 14:56:00 Josue Lutz [facility] PROTHROMBIN TIME / INR 2021-10-29 14:56:00 Josue Lutz [facility] ACTIVATED PARTIAL 2021-10-29 14:56:00 Josue Lutz [facility] CONSENT/REFUSAL FOR 2021-10-29 14:00:26 Doctor Unassigned, [facility] DIAGNOSIS AND TREATMENT [place] [facility] TROPONIN I 2021-10-26 06:01:00 Ezra Milligan [facility] URINALYSIS 2021-10-26 05:52:00 Ezra Milligan [facility] XR CHEST 1 VW 2021-10-26 04:44:00 Ezra Milligan [facility] LIPASE 2021-10-26 04:30:00 Ezra Milligan [facility] TROPONIN I 2021-10-26 04:30:00 Ezra Milligan [facility] COMP. METABOLIC PANEL 2021-10-26 04:30:00 Ezra Milligan [facility] ([id number]) Medical [place] CBC WITH DIFF 2021-10-26 04:30:00 Ezra Milligan [facility] PROTHROMBIN TIME / INR 2021-10-26 04:30:00 Ezra Milligan [facility] ACTIVATED PARTIAL 2021-10-26 04:30:00 Ezra Milligan [facility] THRMPLAS GAUTAM [facility] N-TERMINAL PRO-BNP 2021-10-26 04:30:00 Ezra Milligan [facility] NOTICE OF PRIVACY 2021-10-26 03:57:43 Doctor Fernandez, [facility] PRACTICES [place] [facility] CONSENT/REFUSAL FOR 2021-10-26 03:53:29 Doctor Fernandez [facility] DIAGNOSIS AND TREATMENT [place] [facility] [place] MEDICATION CORRESPONDENCE 2021-08-14 05:01:00 Doctor Presley, [facility] [place] [facility] CONSENT/REFUSAL FOR 2021-05-26 14:37:40 Doctor Presley [facility] DIAGNOSIS AND TREATMENT [place] [facility] [place] VACCINATIONS - CONSENTS, 2021-04-13 05:01:00 Doctor Fernandez [facility] ELIGIBILITY, HISTORY [place] [facility] Bra [facility] SCANNED LAB RESULTS 2021-01-01 06:01:00 Doctor Presley [facility] [place] [facility] [place] XR LUMBAR SPINE 2 VW 2020-10-27 16:22:58 Cem Britt [facility] [place] XR KNEE 3 VW LEFT 2020-10-27 16:22:26 Cem Britt [facility] [place] XR KNEE 3 VW RIGHT 2020-10-06 18:14:49 Ellie Kuo [facility] ASSIGNMENT OF BENEFITS 2020-10-06 17:23:48 Doctor Fernandez [facility] [place] [facility] FLU VACC ([id number]), 6+ 2020-09-18 14:44:43 Ellie Kuo [facility] MONTHS, IM, QUAD Medical Branch SCANNED LAB RESULTS 2020-09-18 05:01:00 Doctor Fernandez [facility] [place] [facility] ECHO ROUTINE W/DOPPLER 2020-03-17 14:54:06 Dorota Shaver [facility] EXTERNAL PROVIDER RECORDS 2020-02-12 05:01:00 Doctor Fernandez, [facility] [place] [facility] FLU VACC ([id number]), 6+ 2020-01-10 17:18:02 Ellie Kuo [facility] MONTHS, IM, [facility] EMERGENCY SERVICES 2020-01-10 06:01:00 Doctor Fernandez, [facility] AGREEMENTS AND [place] [facility] AUTHORIZATIONS Encounters Start End Encounter Admission Attending Care Care Encounter Source Date/Time Date/Time Type Type Clinicians Facility Department ID 2021-09-21 Emergency [facility] [id number] Univers 06:12:39 [facility] 2022-02-23 2022-02-23 Outpatient R SIVAKUMAR, [facility] [id number] Univers 10:20:00 10:20:00 DOROTA [id number] joseyy o [facility] 2021-12-14 2021-12-14 Outpatient R SIVAKUMAR, [facility] [id number] Univers 14:20:00 14:20:00 DOROTA [id number] ity o [facility] 2021-12-14 2021-12-14 Outpatient R SIVAKUMAR, [facility] [id number] Univers 14:20:00 14:20:00 DOROTA dowling o [facility] 2021-11-23 2021-11-23 Outpatient Alicia MADDEN [facility] [id number] Univers 12:40:00 12:40:00 FRANK [id number] [facility] 2021-11-23 2021-11-23 Outpatient Alicia MADDEN [facility] [id number] Univers 12:40:00 12:40:00 FRANK [facility] 2021-11-18 2021-11-18 Outpatient R SIVAKUMAR, [facility] [id number] Univers 11:00:00 11:00:00 DOROTA [id number] it o [facility] 2021-11-12 2021-11-12 [id number] Univers 14:15:00 14:15:00 CHUCK [id number] ity of [facility] 2021-11-03 2021-11-03 Transition MOI Gardner [id number] Univers 00:00:00 00:00:00 of Care Alison MITCHELL [id number] [id number] [id number] [facility] 403 Branch 2021-10-29 2021-11-01 [facility] [id number] Univers 08:10:00 15:55:00 JERARDO salmon [facility] 2021-10-29 2021-11-01 [facility] Josue [facility] [id number] Univers 08:10:00 15:55:00 Encounter Jerardo Sharma [id number] [facility] [id number] [facility] [id number] [address] 2021-10-25 2021-10-26 Emergency X [facility] ERT [id number] Univers 22:07:00 02:04:00 EZRA ity [facility] 2021-10-25 2021-10-26 Emergency [facility] [id number] Univers 22:07:00 02:04:00 Ezra CHAMPION [id number] ity of [id number] [place] [facility] [id number] [place] [id number] [place] 2021-10-02 2021-10-02 Telephone Matilde PRATER [id number] Univers 00:00:00 00:00:00 , Consuelo MITCHE[place] [id number] [id number] [id number] [id number] [place] 2021-08-14 2021-08-14 Orders Doctor WADE [id number] Univers 00:00:00 00:00:00 Only Unassigned, DAJUAN [id number] ity of [place] [facility] [id number] Jordy as [id number] [facility] [address] [place] 2021-07-31 2021-07-31 Office [facility] [id number] Univers 11:02:52 11:19:13 Visit Frank HINKLE [id number] [id number] [id number] [address] 2021-07-31 2021-07-31 Outpatient Alicia MADDEN [facility] [id number] Univers 11:10:00 11:10:00 FRANK [id number] [facility] 2021-07-31 2021-07-31 Outpatient Alicia MADDEN [facility] [id number] Univers 11:10:00 11:10:00 FRANK [facility] 2021-07-24 2021-07-24 Outpatient Alicia BHATT [facility] [id number] Univers 10:30:00 10:30:00 RADHA [id number] [facility] 2021-07-24 2021-07-24 Outpatient Alicia BHATT [facility] [id number] Univers 10:30:00 10:30:00 RADHA [facility] 2021-07-17 2021-07-17 Outpatient Alicia MADDEN [facility] [id number] Univers 08:50:00 08:50:00 FRANK [id number] [facility] 2021-06-18 2021-06-18 Office Care, Cory CONNELLY [id number] .[id number] Univers 10:33:23 11:03:23 Visit Ellie Kuo [facility] [id number] it[id number] [id number] [facility] [address] [place] 2021-06-18 2021-06-18 Outpatient R [facility] [id number] -[id number] Univers 10:30:00 10:30:00 [id number] [facility] 2021-06-18 2021-06-18 Outpatient R ELLIE KUO [facility] [id number] Univers 10:30:00 10:30:00 ity of [facility] 2021-06-15 2021-06-15 Hospital Ellie Kuo [facility] 1.2.840.114 [id number] Univers 10:52:14 23:59:00 Encounter Franny 350.1.13.10 it[place] [phone] [facility] [address] 2021-06-15 2021-06-15 Outpatient R [facility] [id number] Univers 11:20:00 11:20:00 [id number] ity [facility] 2021-06-15 2021-06-15 Outpatient R [facility] [id number] Univers 00:00:00 00:00:00 ity [facility] 2021-06-15 2021-06-15 Telephone Ellie Kuo 1.2.840.114 [id number] Univers 00:00:00 00:00:00 [facility] 350.1.13.10 it y [place] [id number] [facility] [address] 2021-05-28 2021-05-28 Office Care, Cory CONNELLY 1.2.840 .114 [id number] Univers 13:37:06 14:07:06 Visit Ellie Kuo [facility] 350.1.13.10 ity of [facility] [place] [phone] [facility] [address] 2021-05-28 2021-05-28 Outpatient R [facility] [id number] -[id number] Univers 13:30:00 13:30:00 [id number] ity [facility] 2021-05-28 2021-05-28 Outpatient R [facility] [id number] Univers 13:30:00 13:30:00 ity [facility] 2021-05-26 2021-05-26 [facility] 1.2.180.029 [id number] Univers 09:45:00 10:29:00 Josue Champion 350.1.13.10 i [place] of [place] [id number] [facility] [address] 2021-04-21 2021-04-21 Telephone Ellie Kuo MARICEL 1.2.840.114 [id number] Univers 00:00:00 00:00:00 [facility] 350.1.13.10 it y [place] [id number] [facility] [address] 2021-04-15 2021-04-15 Telephone Ellie Kuo MARICEL 1.2.840.114 [id number] Univers 00:00:00 00:00:00 [facility] 350.1.13.10 it y [place] [id number] [facility] [address] 2021-04-13 2021-04-13 Orders Doctor WADE 1.2.840.114 [id number] Univers 00:00:00 00:00:00 Only Unassigned, DAJUAN 350.1.13.10 ity of [place]i [facility] 4.2.7.2.686 Jord[place] as [phone] [facility] [address] 2021-04-06 2021-04-06 Office Chano [facility] 1.2.840.114 [id number] Univers 11:57:20 13:00:17 Visit Frank HINKLE 350.1.13.10 ity of CARE 4.2.7.2.686 [facility] [place] AT [phone] [address] 2021-04-06 2021-04-06 Outpatient Alicia MADDEN [facility] [id number] -[id number] Univers 12:30:00 12:30:00 FRANK [id number] ity [facility] 2021-04-06 2021-04-06 Outpatient Alicia MADDEN [facility] [id number] Univers 12:30:00 12:30:00 [facility] 2021-03-23 2021-03-23 Outpatient Alicia MADDEN [facility] [id number] -[id number] Univers 15:50:00 15:50:00 FRANK [id number] [facility] 2021-03-18 2021-03-18 Refill Ellie Kuo [facility] 1.2.840.114 [id number] Univers 00:00:00 00:00:00 Y HEALTH 350.1.13.10 i ty of CLINICS [place] [id number] [facility] [address] 2021-02-23 2021-02-23 Office Sivakumar, [facility] 1.2.840.114 [id number] Univers 13:39:51 14:18:57 Visit Jordanashlibrandon [place] 350.1.13.10 ity [facility] [place] [phone] [place] dical nal 059 [facility] 2021-02-23 2021-02-23 Outpatient SIVAKUMAR, [facility] [id number] -[id number] Univers 09:20:00 09:20:00 DOROTA [id number] ity o [facility] 2021-02-23 2021-02-23 Outpatient R SIVAKUMAR, [facility] [id number] Univers 09:20:00 09:20:00 DOROTA salmon [facility] 2021-02-10 2021-02-10 Telephone Ellie Kuo 1.2.840.114 [id number] Univers 00:00:00 00:00:00 [facility] 350.1.13.10 it y [place] [id number] [facility] [address] 2021-01-30 2021-01-30 Outpatient Alicia MADDEN [facility] [id number] -[id number] Univers 11:30:00 11:30:00 FRANK [id number] ity of [facility] 2021-01-25 2021-01-25 RefEllie Purdy [facility] 1.2.840.114 [id number] Univers 00:00:00 00:00:00 Y HEALTH 350.1.13.10 i ty of CLINICS [place] [id number] [facility] [address] 2021-01-12 2021-01-12 Telephone Ellie Kuo 1.2.840.114 [id number] Univers 00:00:00 00:00:00 [facility] 350.1.13.10 it y [place] [phone] [facility] [address] MARTHA 2021-01-01 2021-01-01 Office Care, Ang Primary BRAZDUSTIN 1.2.840 .114 [id number] Univers 09:33:34 10:33:20 Visit Ellie Kuo [facility] 350.1.13.10 ity [place] [id number] [facility] [address] 2021-01-01 2021-01-01 Outpatient R [facility] [id number] -[id number] Univers 09:30:00 09:30:00 [id number] ity of [facility] 2021-01-01 2021-01-01 Outpatient R ELLIE KUO [facility] [id number] Univers 09:30:00 09:30:00 ity [facility] 2021-01-01 2021-01-01 Orders Doctor WADE 1.2.840.114 [id number] Univers 00:00:00 00:00:00 Only Unassigned, DAJUAN 350.1.13.[address] [facility] 4.2.7.2.686 [place] as [phone] [facility] [address] 2020-12-31 2020-12-31 Telephone Ellie Kuo 1.2.840.114 [id number] Univers 00:00:00 00:00:00 [facility] 350.1.13.10 it y [place] [id number] [facility] [address] 2020-12-24 2020-12-24 Outpatient R [facility] [id number] -[id number] Univers 17:20:00 17:20:00 [id number] ity [facility] 2020-12-24 2020-12-24 Outpatient R OMAR [facility] [id number] Univers 17:20:00 17:20:00 REN ity [facility] 2020-12-24 2020-12-24 Laboratory Lab, Adc Fam Pob I [facility] 1.2. 840.114 [id number] Univers 16:56:05 17:16:05 Only Omar [facility] 350.1.13.10 ity of [place] 4.2.7.2.686 [place] as Professio [phone] Me dical nal [address] Office [address] [facility] 2020-12-24 2020-12-24 Letter Doctor WADE 1.2.840.114 [id number] Univers 00:00:00 00:00:00 (Out) Unassigned, DAJUAN 350.1.13.10 ity of [place] Ii HOSPITAL 4.2.7.2.686 [place] as [phone] [facility] [address] 2020-11-28 2020-11-28 Telephone Ellie Kuo 1.2.840.114 [id number] Univers 00:00:00 00:00:00 [facility] 350.1.13.10 it y [place] [id number] [facility] [address] 2020-10-27 2020-10-27 [facility] 1.2.840.114 [id number] Univers 10:06:10 23:59:00 Encounter Frank Champion 350.1.13.10 it[place] of [place] [phone] [facility] [address] 2020-10-27 2020-10-27 [facility] 1.2.840.114 [id number] Univers 10:00:00 10:05:00 Encounter Frank Champion 350.1.13.10 it[place] of [place] [phone] [address] 2020-10-27 2020-10-27 Outpatient R [facility] [id number] Univers 10:00:00 10:00:00 FRANK ity [facility] 2020-10-27 2020-10-27 Outpatient R [facility] [id number] Univers 00:00:00 00:00:00 [facility] 2020-10-08 2020-10-08 Office [facility] 1.2.840.114 [id number] Univers 10:46:03 11:37:55 Visit Frank AVILES 350.1.13.10 it y [place] [facility] [id number] Me dical [address] 2020-10-08 2020-10-08 Outpatient R CHANO [facility] [id number] -[id number] Univers 11:00:00 11:00:00 FRANK [id number] ity of [facility] 2020-10-08 2020-10-08 Outpatient R CHANO [facility] [id number] Univers 11:00:00 11:00:00 FRANK ity of [facility] 2020-10-06 2020-10-06 [facility] 1.2.840.114 [id number] Univers 11:30:00 23:59:00 Encounter [place] 350.1.13.10 ity of [place] [id number] [facility] [address] 2020-10-06 2020-10-06 [facility] [id number] Univers 11:30:00 11:30:00 [id number] ity of [facility] 2020-10-06 2020-10-06 [facility] [id number] Univers 00:00:00 00:00:00 ity of [facility] 2020-10-06 2020-10-06 [facility] [id number] Univers 00:00:00 00:00:00 ity [facility] 2020-10-06 2020-10-06 Orders Doctor OLVERA 1.2.840.114 [id number] Univers 00:00:00 00:00:00 Only Unassigned, DAJUAN 350.1.13.10 ity of [place] Ii [facility] 4.2.7.2.686 Jordy [phone] [facility] [address] 2020-09-22 2020-09-22 Telephone Ellie Kuo MARICEL 1.2.840.114 [id number] Univers 00:00:00 00:00:00 [facility] 350.1.13.10 it y of [facility] 4.2.7.2.[place] [phone] [facility] CARE - [address] MARTHA 2020-09-18 2020-09-18 Office Care, Ang Primary MARICEL 1.2.840 .114 [id number] Univers 08:57:06 09:59:36 Visit Ellie Kuo [facility] 350.1.13.10 ity [place] [phone] [facility] [address] 2020-09-18 2020-09-18 Outpatient R [facility] [id number] Univers 08:30:00 08:30:00 [id number] ity of [facility] 2020-09-18 2020-09-18 Outpatient R [facility] [id number] Univers 08:30:00 08:30:00 ity of [facility] 2020-09-18 2020-09-18 Orders Doctor WADE 1.2.840.114 [id number] Univers 00:00:00 00:00:00 Only Unassigned, DAJUAN 350.1.13.10 ity of [place] [facility] 4.2.7.2.686 [place] [phone] [facility] [address] 2020-06-26 2020-06-26 Office Care, Ang Primary BRAZORIA 1.2.840 .114 [id number] Univers 09:29:43 12:40:14 Visit Ellie Kuo [facility] 350.1.13.10 ity of [place] [id number] [place] [address] [address] 2020-06-26 2020-06-26 Outpatient R [facility] [id number] Univers 09:30:00 09:30:00 ity of [facility] 2020-06-26 2020-06-26 Outpatient R ELLIE KUO [facility] [id number] Univers 09:30:00 09:30:00 ity of [facility] 2020-06-03 2020-06-03 Outpatient R ELLIE KUO [facility] [id number] Univers 08:40:00 08:40:00 [id number] ity of [facility] 2020-05-30 2020-05-30 Outpatient R NOVA [facility] [id number] Univers 09:00:00 09:00:00 RADHA [id number] ity of [facility] 2020-05-30 2020-05-30 Outpatient R NOVA [facility] [id number] Univers 09:00:00 09:00:00 RADHA ity [facility] 2020-05-13 2020-05-13 Outpatient [facility] [id number] Univers 08:00:00 08:00:00 [id number] ity [facility] 2020-05-02 2020-05-02 Outpatient R NOVA [facility] [id number] -[id number] Univers 09:00:00 09:00:00 RADHA [id number] ity [facility] 2020-03-26 2020-03-26 Outpatient [facility] [id number] Univers 13:00:00 13:00:00 [facility] 2020-03-17 2020-03-18 Laboratory Pc, Adc Echo Room 1 - [facility] 1 .2.840.114 [id number] Univers 09:46:38 15:29:58 Only Dorota [facility].1.13.10 [facility] 4.2.7.2.686 Sowmya Arellano [id number] T[place] dical nal [address] [facility] 2020-03-17 2020-03-17 Outpatient [facility] [id number] -[id number] Univers 10:00:00 10:00:00 [id number] [facility] 2020-03-17 2020-03-17 Outpatient R [facility] [id number] Univers 10:00:00 10:00:00 ity [facility] 2020-03-07 2020-03-07 Outpatient R NOVA [facility] [id number] Univers 08:30:00 08:30:00 RADHA [id number] [facility] 2020-03-07 2020-03-07 Outpatient R NOVA [facility] [id number] Univers 08:30:00 08:30:00 RADHA [facility] 2020-03-03 2020-03-03 Outpatient Alicia KUO ELLIE [facility] [id number] Univers 10:00:00 10:00:00 [id number] ity [facility] 2020-03-03 2020-03-03 Outpatient R SHIELA ELLIE [facility] [id number] Univers 00:00:00 00:00:00 ity [facility] 2020-02-21 2020-02-21 Ellie Fernández 1.2.840.114 [id number] Univers 00:00:00 00:00:00 [facility] 350.1.13.10 it y [place] [id number] [address] 2020-02-20 2020-02-20 Outpatient R SIVAKUMAR [facility] [id number] -[id number] Univers 15:00:00 15:00:00 DOROTA [id number] ity o f [facility] 2020-02-20 2020-02-20 Outpatient R SIVAKUMAR [facility] [id number] Univers 15:00:00 15:00:00 DOROTA ity o f [facility] 2020-02-20 2020-02-20 [facility]ici [facility] 1.2.840.114 [id number] Univers 09:06:12 09:26:12 ne Visit Dorota [place] 350.1.13.10 ity of [place] [phone] Tx dical formerly [facility] 2020-02-18 2020-02-18 Refill Ellie Kuo 1.2.840.114 [id number] Univers 00:00:00 00:00:00 [facility] 350.1.13.10 it y [place] [id number] [address] 2020-02-12 2020-02-12 Orders Doctor WADE 1.2.840.114 [id number] Univers 00:00:00 00:00:00 Only Unassigned, DAJUAN 350.1.13.10 ity of [place] Ii [facility] 4.2.7.2.686 [place]ord[place] as [id number] [facility] [address] 2020-02-07 2020-02-07 Outpatient R ELLIE KUO [facility] [id number] Univers 11:00:00 11:00:00 [id number] ity of [facility] 2020-02-07 2020-02-07 Outpatient R ELLIE KUO [facility] [id number] Univers 00:00:00 00:00:00 ity of [facility] 2020-01-15 2020-01-15 Ellie Fernández 1.2.840.114 [id number] Univers 00:00:00 00:00:00 [facility] 350.1.13.10 it [place] [id number] [facility] CARE - [address] MARTHA 2020-01-10 2020-01-11 Office Care, Ang Primary MARICEL 1.2.840 .114 [id number] Univers 10:26:47 11:05:43 Visit Ellie Kuo [facility] 350.1.13.10 ity of [place] [id number] [facility] [address] 2020-01-10 2020-01-10 Orders Doctor WADE 1.2.840.114 [id number] Univers 00:00:00 00:00:00 Only Unassigned, DAJUAN 350.1.13.10 ity of [place] Ii HOSPITAL 4.2.7.2.686 [place] as [phone] [facility] [address] Results Test Description Test Time Test Comments Results Result Comments Source COMPREHENSIVE METABOLIC PANEL 2022-01-26 06:56:00 Test Item Value Reference Range Interpretation Comme nts GLUCOSE (test code = 2217) 118 MG/DL 70-99 H BUN (test code = 2208) 13 MG/DL 6-20 CREATININE (test code = 0.65 MG/DL 0.60-1.30 2213) eGFR (2020 CKD-EPI) (test 105 ML/MIN/1.73 >60 code = 18260) CALC BUN/CREAT (test code = 20 RATIO 6-28 2234) SODIUM (test code = 2231) 142 MEQ/L 133-146 POTASSIUM (test code = 3.9 MEQ/L 3.5-5.4 2227) CHLORIDE (test code = 2215) 104 MEQ/L 95-107 CARBON DIOXIDE (test code = 26 MEQ/L 19-31 2205) CALCIUM (test code = 2209) 9.6 MG/DL 8.5-10.5 PROTEIN, TOTAL (test code = 8.3 G/DL 6.1-8.3 2228) ALBUMIN (test code = 2201) 3.8 G/DL 3.5-5.2 CALC GLOBULIN (test code = 4.5 G/DL 1.9-3.7 H 2239) CALC A/G RATIO (test code = 0.8 RATIO 1.0-2.6 L 2233) BILIRUBIN, TOTAL (test code <0.2 MG/DL See_Comment [Automated message] The = 220) system which ge nerated this result transmit jaime reference range: <=1.2. T he reference range was not u sed to interpret this result as normal/abnormal . ALKALINE PHOSPHATASE (test 81 U/L 40-133 code = 2204) AST (test code = 2218) 19 U/L 9-40 ALT (test code = 2219) 27 U/L 5-40 UNLESS OTHERWISE INDICATED, ALL TESTING PERFORMED [facility] PATHOLOGY [facility] [address] [place] [address] DOG HAIR CLIPPER: ZEINAB GONZALEZ M.D. CLIA NUMBER [id number] CAP ACCREDITATION N O. [id number] CBC W/AUTO DIFF WITH [id number] 03:34:45 Test Item Value Reference Range Interpretation Comments WBC (test code = 5.8 K/UL 3.5-11.0 1001) RBC (test code = 4.08 M/UL 3.80-5.40 1002) HEMOGLOBIN (test code 11.8 G/DL 11.5-15.5 = 1003) HEMATOCRIT (test code 34.7 % 34.0-45.0 = 1004) MCV (test code = 85.0 fL 80.0-99.0 1005) MCH (test code = 28.9 PG 25.0-33.0 1006) MCHC (test code = 34.0 G/DL 31.0-36.0 1007) RDW (test code = 14.5 % 11.5-15.0 1038) NEUTROPHILS (test 55.0 % code = 1008) LYMPHOCYTES (test 32.9 % code = 1010) MONOCYTES (test code 10.1 % = 1011) EOSINOPHILS (test 1.0 % code = 1012) BASOPHILS (test code 0.7 % = 1013) IMMATURE GRANULOCYTES 0.3 % (test code = 1036) NUCLEATED RBCS (test 0.0 /100 See_Comment [Autom ated code = 1065) WBC'S message] The sy stem which generated this result transmitted reference range : 0.0. The refere nce range was not u sed to interpret th is result as normal/abnormal . PLATELET COUNT (test 375 K/UL 130-400 code = 1015) ABSOLUTE NEUTROPHILS 3.20 K/UL 1.50-7.50 (test code = 1066) ABSOLUTE LYMPHOCYTES 1.92 K/UL 1.00-4.00 (test code = 1067) ABSOLUTE MONOCYTES 0.59 K/UL 0.20-1.00 (test code = 1068) ABSOLUTE EOSINOPHILS 0.06 K/UL 0.00-0.50 (test code = 1040) ABSOLUTE BASOPHILS 0.04 K/UL 0.00-0.20 (test code = 1069) ABS IMMATURE 0.02 K/UL 0.00-0.10 GRANULOCYTES (test code = 1020) ABS NUCLEATED RBCS 0.00 K/UL 0.00-0.11 (test code = 60635) TSH, THIRD [id number] 06:59:20 Test Item Value Reference Range Interpretation Comments TSH, THIRD GENERATION (test code 1.290 UIU/ML 0.400-4.100 = 2821) COMPREHENSIVE METABOLIC [id number] 06:05:05 Test Item Value Reference Range Interpretation Comments GLUCOSE (test code = 92 MG/DL 70-99 2216) BUN (test code = 12 MG/DL 6-20 2207) CREATININE (test 0.65 MG/DL 0.60-1.30 EFFECTIVE code = 2214) 11/02/2021, [facility] HAS IMPLEMENTED THE NKF-ASN RECOMME NDED KD-EPI EGF R REFIT CALCULATI ON THAT DOES NOT INCLUDE A COEFFICIENT FOR RACE. FOR MORE INFORMATION, SE E ANNOUNCEMENT [email or web address] eGFR (2020 CKD-EPI) 105 >60 (test code = 36315) ML/MIN/1.73 CALC BUN/CREAT (test 18 RATIO 6-28 code = 2235) SODIUM (test code = 142 MEQ/L 951-972 0978) POTASSIUM (test code 4.1 MEQ/L 3.5-5.4 = 2227) CHLORIDE (test code 104 MEQ/L 95-107 = 221) CARBON DIOXIDE (test 26 MEQ/L 19-31 code = 220) CALCIUM (test code = 9.6 MG/DL 8.5-10.5 2208) PROTEIN, TOTAL (test 7.9 G/DL 6.1-8.3 code = 2229) ALBUMIN (test code = 4.0 G/DL 3.5-5.2 2200) CALC GLOBULIN (test 3.9 G/DL 1.9-3.7 H code = 2240) CALC A/G RATIO (test 1.0 RATIO 1.0-2.6 code = 2234) BILIRUBIN, TOTAL 0.2 MG/DL See_Comment [Automated message] (test code = 2207) The syste m which generated this result transmit jaime reference range : <=1.2. The refe rence range was not u sed to interpret th is result as normal/abnormal . ALKALINE PHOSPHATASE 70 U/L 40-133 (test code = 2204) AST (test code = 16 U/L 9-40 2217) ALT (test code = 23 U/L 5-40 2218) LIPID [id number] 06:05:05 Test Item Value Reference Range Interpretation [...] MOREINFORMATION , SEE CLIENT ANNOUNCE MENT AT [email or web address] RISK RATIO LDL/HDL 2.77 RATIO <3.22 UN LESS (test code = 2238) OTHERWISE INDICATED, ALL TESTING PER FORMED ATCLINICAL PATH OLOGY LABORATORIES, I [place]. [address] [facility] [place] [address] LABORATORY DIRE CTOR: ZEINAB PRO M.D. CLIA NUMBER [id number] CAP ACCREDITATION N O. [id number] HEPATITIS PANEL, [id number] 05:57:02 Test Item Value Reference Range Interpretation Comments HEPATITIS A IgM (test NON-REACTIVE NON-REACTIVE code = 98790) HEPATITIS B CORE IgM NON-REACTIVE NON-REACTIVE (test [...] (test code sero logy shows no = 90557) evidence of acu te hepatitis B and no indication of exposure to hepatitis B vir us in the previous juan eight months. INTERPRETATION (NOTE) Hepatiti s C HEPATITIS C: (test code sero logy shows no = 84619) evidence of exposure to hepatitisC viru s at this time. It can take up to 12 months after exposure tothe hepatitis C vir us for antibodies to become detectab le in the bloo d in certain patients. CBC W/AUTO DIFF WITH [id number] 04:45:05 Test Item Value Reference Range Interpretation [...] LL BE ELIMINATED REDUNDANT TOABS OLUTE COUNTS.SEE [email or web address] _upda te LYMPHOCYTES (test 38.9 % code = 1010) MONOCYTES (test code 10.4 % = 1011) EOSINOPHILS (test 1.3 % code = 1012) BASOPHILS (test code 1.3 % = 1013) IMMATURE GRANYLOCYTES 0.2 % (test code = 1036) NUCLEATED RBCS (test 0.0 /100 See_Comment [Autom ated message] code = 1065) WBC'S The system [employer] generated this result transmit jaime reference range [...] RBCS 0.00 K/UL 0.00-0.11 (test code = 64714) BASIC METABOLIC PANEL (NA, K, CL, CO2, GLUCOSE, BUN, CREATININE, CA)2021-11-01 12:02:10 Test Item Value Reference Range Interpretation Comments NA (test code = 141 mmol/L 135-145 1536402627) K (test code = 4.0 mmol/L 3.5-5.0 4501611926) CL (test code = 103 mmol/L 98-108 1917431022) CO2 TOTAL (test code = 32 mmol/L 23-31 H 2302158668) AGAP (test code = 2-16 3044334102) BUN (test code = 8 mg/dL 7-23 0093109604) GLUCOSE (test code = 96 mg/dL 70-110 2757149297) CREATININE (test code = 0.75 mg/dL 0.50-1.04 8930439960) CALCIUM (test code = 9.5 mg/dL 8.6-10.6 1048512351) eGFR (test code = mL/min/1.73m2 9470437937) PETERSON (test code = PETERSON) Association of [...] tests). Lab Interpretation Abnormal (test code = 72100-3) [facility] Test Item Value Reference Range Interpretation Comments LIPASE (test code = 6904531570) 132 U/L 0-220 Lab Interpretation (test code = Normal 46448-3) [facility] [id number] 11:49:08 Test Item Value Reference Range Interpretation Comments WBC (test code = See_Comment [Automated 5220-2) message] The sy stem which generated this result transmitted reference range : 4.30 - 11.10 10*3/?L. The reference range was not used to interpret this result as normal/abnormal . RBC (test code = See_Comment [Automated 533-6) message] The sy stem which generated this [...] RDW-SD (test code = 47.8 fL 39.0-49.9 12168-9) RDW-CV (test code = 14.4 % 12.0-15.5 788-0) PLT (test code = See_Comment [Automated 777-3) message] The sy stem which generated this result transmitted reference range : 166 - 358 10*3/ ?L. The reference r martha was not used to interpret this result as normal/abnormal . MPV (test code = 10.8 fL 9.5-12.9 43072-3) NRBC/100 WBC (test See_Comment [Automat ed code = [id number]) message] The system which generated this result transmitted reference range : 0.0 - 10.0 /100 WBCs. The refer ence range was not u sed to interpret th is result as normal/abnormal . NRBC x10^3 (test code <0.01 See_Comment [Auto mated = [id number]) message] The s ystem which generated this result transmitted reference range : 10*3/?L. The reference range was not used to interpret this result as normal/abnormal . GRAN MAT (NEUT) % 60.4 % (test code = 770-8) IMM GRAN % (test code 0.60 % = 4200207671) LYMPH % (test code = 24.9 % 736-9) MONO % (test code = 12.6 % 5905-5) EOS % (test code = 0.9 % 713-8) BASO % (test code = 0.6 % 706-2) GRAN MAT x10^3(ANC) 5.28 10*3/uL 1.88-7.09 (test code = 3289160202) IMM GRAN x10^3 (test 0.05 10*3/uL 0.00-0.06 code = 8638327786) LYMPH x10^3 (test code 2.18 10*3/uL 1.32-3.29 = 731-0) MONO x10^3 (test code 1.10 10*3/uL 0.33-0.92 H = 742-7) EOS x10^3 (test code = 0.08 10*3/uL 0.03-0.39 711-2) BASO x10^3 (test code 0.05 10*3/uL 0.01-0.07 = 704-7) Lab Interpretation Abnormal (test code = 40791-5) [facility] WITH [id number] 11:39:39 Test Item Value Reference Range Interpretation Comments WBC (test code = See_Comment [Automated 6690-2) message] The sy stem which [...] RDW-SD (test code = 47.8 fL 39.0-49.9 26450-3) RDW-CV (test code = 14.6 % 12.0-15.5 788-0) PLT (test code = See_Comment [Automated 777-3) message] The sy stem which generated this result transmitted reference range : 166 - 358 10*3/ ?L. The reference r martha was not used to interpret this result as normal/abnormal . MPV (test code = 10.8 fL 9.5-12.9 41377-9) NRBC/100 WBC (test See_Comment [Automat ed code = 3723236093) message] The system which generated this result transmitted reference range : 0.0 - 10.0 /100 WBCs. The refer ence range was not u sed to interpret th is result as normal/abnormal . NRBC x10^3 (test code <0.01 See_Comment [Auto mated = 6928191005) message] The s ystem which generated this result transmitted reference range : 10*3/?L. The reference range was not used to interpret this result as normal/abnormal . GRAN MAT (NEUT) % 65.9 % (test code = 770-8) IMM GRAN % (test code 0.60 % = 4790673183) LYMPH % (test code = 21.0 % 736-9) MONO % (test code = 11.4 % 5905-5) EOS % (test code = 0.7 % 713-8) BASO % (test code = 0.4 % 706-2) GRAN MAT x10^3(ANC) 6.39 10*3/uL 1.88-7.09 (test code = 5060905655) IMM GRAN x10^3 (test 0.06 10*3/uL 0.00-0.06 code = 9597196495) LYMPH x10^3 (test code 2.04 10*3/uL 1.32-3.29 = 731-0) MONO x10^3 (test code 1.11 10*3/uL 0.33-0.92 H = 742-7) EOS x10^3 (test code = 0.07 10*3/uL 0.03-0.39 711-2) BASO x10^3 (test code 0.04 10*3/uL 0.01-0.07 = 704-7) Lab Interpretation Abnormal (test code = 80789-3) [facility] METABOLIC PANEL (NA, K, CL, CO2, GLUCOSE, BUN, CREATININE, CA)2021-10-31 11:22:58 Test Item Value Reference Range Interpretation Comments NA (test code = 139 mmol/L 135-145 6129558757) K (test code = 4.1 mmol/L 3.5-5.0 4625323049) CL (test code = 104 mmol/L 98-108 9231792896) CO2 TOTAL (test code 29 mmol/L 23-31 = 5839163849) AGAP (test code = 2-16 0027980462) BUN (test code = 7 mg/dL 7-23 9413750827) GLUCOSE (test code = 92 mg/dL 70-110 4920220103) CREATININE (test code 0.58 mg/dL 0.50-1.04 = 2406920650) CALCIUM (test code = 9.4 mg/dL 8.6-10.6 5794240300) eGFR (test code = mL/min/1.73m2 2777735312) PETERSON (test code = PETERSON) Association of [...] or urine or abnormalities in imaging tests). [facility] 11:22[facility]17 Test Item Value Reference Range Interpretation Comments LIPASE (test code = 6569637824) 152 U/L 0-220 Lab Interpretation (test code = Normal 47647-3) [facility]2021-10-30 12:27:34 Test Item Value Reference Range Interpretation Comments HGB A1C (test code = 5.4 % 4.0-5.7 4548-4) PETERSON (test code = PETERSON) Reference RangesNormal: <5.7%Prediabetes: 5.7 - 6.4%Diabetes: > 6.5% Lab Interpretation (test Normal code = 49058-9) [facility] Metabolic Panel (NA, K, CL, CO2, GLUCOSE, BUN, CREATININE, CA)2021-10-30 11:35:56 Test Item Value Reference Range Interpretation Comments NA (test code = 138 mmol/L 135-145 2872208699) K (test code = 3.9 mmol/L 3.5-5.0 2912801107) CL (test code = 102 mmol/L 98-108 0171426649) CO2 TOTAL (test code = 26 mmol/L 23-31 4902462860) AGAP (test code = 2-16 3137317462) BUN (test code = 11 mg/dL 7-23 2005570362) GLUCOSE (test code = 115 mg/dL 70-110 H 4305242334) CREATININE (test code = 0.69 mg/dL 0.50-1.04 1972847764) CALCIUM (test code = 9.4 mg/dL 8.6-10.6 4134001781) eGFR (test code = mL/min/1.73m2 0916444904) PETERSON (test code = PETERSON) Association of [...] tests). Lab Interpretation Abnormal (test code = 51297-2) [facility] (50431)(TOTAL CHOLESTEROL, TRIGLYCERIDES, HDL)2021-10-30 11:35:56 Test Item Value Reference Range Interpretation Comments CHOL (test code = 160 mg/dL 120-200 3786658483) HDL (test code = 44 mg/dL >50 L 4991999631) HDLC RATIO (test code = See_Comment [Au tomated message] 6360553164) The system [employer] generated this result transmit jaime reference range : <=4.5. The refe rence range was not u sed to interpret th is result as normal/abnormal . TRIG (test code = 71 mg/dL 30-170 9439928569) LDL CHOL (test code = 102 mg/dL See_Comment [Auto mated message] 71646-4) The system [employer] generated this result transmit jaime reference range : <=160. The refe rence range was not u sed to interpret th is result as normal/abnormal . VLDL (test code = 14 mg/dL 5-60 5957477487) Lab Interpretation (test Abnormal code = 44763-1) [facility] 11:34:56 Test Item Value Reference Range Interpretation Comments LIPASE (test code = 5855071780) 200 U/L 0-220 Lab Interpretation (test code = Normal 77336-7) [facility] with [id number] 11:10:55 Test Item Value Reference Range Interpretation Comments WBC (test code = See_Comment H [Automated 6690-2) message] The [employer] stem which generated this result transmitted reference [...] RDW-SD (test code = 48.1 fL 39.0-49.9 42912-1) RDW-CV (test code = 14.6 % 12.0-15.5 788-0) PLT (test code = See_Comment [Automated 777-3) message] The sy stem which generated this result transmitted reference range : 166 - 358 10*3/ ?L. The reference r martha was not used to interpret this result as normal/abnormal . MPV (test code = 10.9 fL 9.5-12.9 31243-9) NRBC/100 WBC (test See_Comment [Automat ed code = 7341193640) message] The system which generated this result transmitted reference range : 0.0 - 10.0 /100 WBCs. The refer ence range was not u sed to interpret th is result as normal/abnormal . NRBC x10^3 (test code <0.01 See_Comment [Auto mated = 5665132149) message] The s ystem which generated this result transmitted reference range : 10*3/?L. The reference range was not used to interpret this result as normal/abnormal . GRAN MAT (NEUT) % 72.3 % (test code = 770-8) IMM GRAN % (test code 0.40 % = 2013933697) LYMPH % (test code = 16.2 % 736-9) MONO % (test code = 10.5 % 5905-5) EOS % (test code = 0.3 % 713-8) BASO % (test code = 0.3 % 706-2) GRAN MAT x10^3(ANC) 8.31 10*3/uL 1.88-7.09 H (test code = 3101452607) IMM GRAN x10^3 (test 0.05 10*3/uL 0.00-0.06 code = 3142817166) LYMPH x10^3 (test code 1.87 10*3/uL 1.32-3.29 = 731-0) MONO x10^3 (test code 1.21 10*3/uL 0.33-0.92 H = 742-7) EOS x10^3 (test code = 0.03 10*3/uL 0.03-0.39 711-2) BASO x10^3 (test code 0.04 10*3/uL 0.01-0.07 = 704-7) Lab Interpretation Abnormal (test code = 17194-0) [facility] [id number] 05:29:57 Test Item Value Reference Interpretation Comments Range TROPONIN I (test 0.001 ng/mL See_Comment [Automated code = 5823534269) message] The system which generated this result [...] biotin. Lab Interpretation Normal (test code = 44782-6) [facility] STIMULATING [id number] 22:42:23 Test Item Value Reference Range Interpretation Comments TSH (test code = See_Comment [Automated message] 1277664515) The system [employer] generated this result transmitted ref erence range: 0.45 - 4 .70 mIU/L. The refe rence range was not u sed to interpret this result as normal/abnor mal. Lab Interpretation (test Normal code = 33014-1) [facility]2021-[facility]-09 17:46:19 Test Item Value Reference Range Interpretation Comments MAGNESIUM (test code = 4370943928) 2.0 mg/dL 1.7-2.4 Lab Interpretation (test code = Normal 37245-4) [facility] [id number] 16:03:45 Test Item Value Reference Interpretation Comments Range TROPONIN I (test 0.000 ng/mL See_Comment [Automated code = 2042905926) message] The system which generated this result [...] biotin. Lab Interpretation Normal (test code = 33106-3) [facility] METABOLIC PANEL (52948)2021-10-29 15:52:23 Test Item Value Reference Range Interpretation Comments NA (test code = 138 mmol/L 135-145 1068136067) K (test code = 4.2 mmol/L 3.5-5.0 9378930491) CL (test code = 105 mmol/L 98-108 9641917898) CO2 TOTAL (test code = 26 mmol/L 23-31 9158483191) AGAP (test code = 2-16 8204166495) BUN (test code = 11 mg/dL 7-23 1252704527) GLUCOSE (test code = 111 mg/dL 70-110 H 8232703446) CREATININE (test code = 0.61 mg/dL 0.50-1.04 6321241254) TOTAL BILI (test code = 0.7 mg/dL 0.1-1.6 6498911524) CALCIUM (test code = 9.5 mg/dL 8.6-10.6 2060913135) T PROTEIN (test code = 8.1 g/dL 6.3-8.2 7120048017) ALBUMIN (test code = 4.0 g/dL 3.5-5.0 6417574946) ALK PHOS (test code = 90 U/L 34-122 2513160088) ALTv (test code = 21 U/L 5-35 2-6) AST(SGOT) (test code = 20 U/L 13-40 9263678935) eGFR (test code = mL/min/1.73m2 4246644118) PETERSON (test code = PETERSON) Association of [...] tests). Lab Interpretation Abnormal (test code = 12308-3) [facility] 15:52:02 Test Item Value Reference Range Interpretation Comments LIPASE (test code = 2932901723) 314 U/L 0-220 H Lab Interpretation (test code = Abnormal 02119-6) [facility]ACT[facility] THRMPLAS [id number] 15:42:03 Test Item Value Reference Range Interpretation Comments APTT Patient (test See_Comment [Automat ed code = 3173-2) message] The system which generated this result transmitted reference range : 23 - 38 Seconds . The reference range was not used to interpr et this result as normal/abnormal . PETERSON (test code = PETERSON) The [facility] patient population mean normal value for aPTT is 30 seconds. Lab Interpretation Normal (test code = 50913-8) [facility] HospitalPROTHROMBIN TIME / [id number] 15:39:43 Test Item Value Reference Range Interpretation [...] tions. Lab Interpretation (test Normal code = 74464-4) [facility]CBC WITH [id number] 15:07:22 Test Item Value Reference Range Interpretation Comments WBC (test code = See_Comment H [Automated 1990-2) message] The sy stem which generated this result transmitted reference range : 4.30 - 11.10 10*3/?L. The reference range was not used to interpret this result as normal/abnormal . RBC (test code = See_Comment [Automated 729-8) message] The sy stem which generated this [...] RDW-SD (test code = 47.8 fL 39.0-49.9 07695-6) RDW-CV (test code = 14.5 % 12.0-15.5 788-0) PLT (test code = See_Comment [Automated 777-3) message] The sy stem which generated this result transmitted reference range : 166 - 358 10*3/ ?L. The reference r martha was not used to interpret this result as normal/abnormal . MPV (test code = 11.3 fL 9.5-12.9 73798-9) NRBC/100 WBC (test See_Comment [Automat ed code = 1659436647) message] The system which generated this result transmitted reference range : 0.0 - 10.0 /100 WBCs. The refer ence range was not u sed to interpret th is result as normal/abnormal . NRBC x10^3 (test code <0.01 See_Comment [Auto mated = 6755708301) message] The s ystem which generated this result transmitted reference range : 10*3/?L. The reference range was not used to interpret this result as normal/abnormal . GRAN MAT (NEUT) % 73.9 % (test code = 770-8) IMM GRAN % (test code 0.30 % = 5626566413) LYMPH % (test code = 14.5 % 736-9) MONO % (test code = 10.4 % 5905-5) EOS % (test code = 0.5 % 713-8) BASO % (test code = 0.4 % 706-2) GRAN MAT x10^3(ANC) 8.23 10*3/uL 1.88-7.09 H (test code = 4119334821) IMM GRAN x10^3 (test 0.03 10*3/uL 0.00-0.06 code = 4037933270) LYMPH x10^3 (test code 1.62 10*3/uL 1.32-3.29 = 731-0) MONO x10^3 (test code 1.16 10*3/uL 0.33-0.92 H = 742-7) EOS x10^3 (test code = 0.06 10*3/uL 0.03-0.39 711-2) BASO x10^3 (test code 0.04 10*3/uL 0.01-0.07 = 704-7) Lab Interpretation Abnormal (test code = 90511-1) [facility] HospitalPOCT [id number] 14:58:00 Test Item Value Reference Range Interpretation Comments POCT PREG (test code = 1605) negatvie On board controls acceptable with present C Line (test code = 3574) POCT PREG LOT # (test code = 3575) [id number] POCT PREG TEST DATE (test code = 3576) Lab Interpretation (test code = Normal 29311-6) [facility]TR[facility] [id number] 06:45:58 Test Item Value Reference Interpretation Comments Range TROPONIN I (test 0.001 ng/mL See_Comment [Automated code = 7645144015) message] The system which generated this result [...] biotin. Lab Interpretation Normal (test code = 57306-8) [facility] HospitalN-TERMINAL [id number] 06:03:35 Test Item Value Reference Range Interpretation Comments NT-proBNP (test code 297 pg/mL See_Comment H [Autom ated = 1371033456) message] The system which generated this result transmitted reference range : <=125. The reference range was not used to interpret this result as normal/abnormal . PETERSON (test code = PETERSON) Biotin has been reported to cause a negative bias, interpret results relative to patient's use of biotin. Lab Interpretation Abnormal (test code = 46587-4) [facility] [id number] 05:18:56 Test Item Value Reference Interpretation Comments Range TROPONIN I (test 0.002 ng/mL See_Comment [Automated code = 2460535559) message] The system which generated this result [...] biotin. Lab Interpretation Normal (test code = 73556-1) [facility] HospitalaPTT2021-12-06 05:13:13 Test Item Value Reference Range Interpretation Comments APTT Patient (test See_Comment [Automat ed code = 3173-2) message] The system which generated this result transmitted reference range : 23 - 38 Seconds . The reference range was not used to interpr et this result as normal/abnormal . PETERSON (test code = PETERSON) The [facility] patient population mean normal value for aPTT is 30 seconds. Lab Interpretation Normal (test code = 06856-1) [facility] HospitalPROTHROMBIN TIME / [id number] 05:07:32 Test Item Value Reference Range Interpretation [...] tions. Lab Interpretation (test Normal code = 26297-2) [facility]. METABOLIC PANEL (25727)2021-10-26 05:07:17 Test Item Value Reference Range Interpretation Comments NA (test code = 138 mmol/L 135-145 0743948202) K (test code = 4.3 mmol/L 3.5-5.0 4058291997) CL (test code = 103 mmol/L 98-108 0906076215) CO2 TOTAL (test code = 25 mmol/L 23-31 8692936644) AGAP (test code = 2-16 8798116973) BUN (test code = 19 mg/dL 7-23 5453805504) GLUCOSE (test code = 111 mg/dL 70-110 H 2899686663) CREATININE (test code = 0.78 mg/dL 0.50-1.04 1021480857) TOTAL BILI (test code = 0.4 mg/dL 0.1-1.6 1589596850) CALCIUM (test code = 9.6 mg/dL 8.6-10.6 3076732411) T PROTEIN (test code = 8.2 g/dL 6.3-8.2 5950177798) ALBUMIN (test code = 4.2 g/dL 3.5-5.0 4737397115) ALK PHOS (test code = 86 U/L 34-122 1414037760) ALTv (test code = 21 U/L 5-35 1742-6) AST(SGOT) (test code = 20 U/L 13-40 9705177410) eGFR (test code = mL/min/1.73m2 2126908676) PETERSON (test code = PETERSON) Association of [...] tests). Lab Interpretation Abnormal (test code = 90079-8) [facility], [id number] 05:07:16 Test Item Value Reference Range Interpretation Comments LIPASE (test code = 1915198618) 315 U/L 0-220 H Lab Interpretation (test code = Abnormal 86240-4) [facility] WITH [id number] 04:59:13 Test Item Value Reference Range Interpretation Comments WBC (test code = See_Comment [Automated 4136-2) message] The sy stem which generated this result transmitted reference range : 4.30 - 11.10 10*3/?L. The reference range was not used to interpret this result as normal/abnormal . RBC (test code = See_Comment [Automated 049-5) message] The sy stem which generated this [...] RDW-SD (test code = 49.1 fL 39.0-49.9 21314-7) RDW-CV (test code = 14.6 % 12.0-15.5 788-0) PLT (test code = See_Comment [Automated 777-3) message] The sy stem which generated this result transmitted reference range : 166 - 358 10*3/ ?L. The reference r martha was not used to interpret this result as normal/abnormal . MPV (test code = 11.5 fL 9.5-12.9 18073-6) NRBC/100 WBC (test See_Comment [Automat ed code = 9430133942) message] The system which generated this result transmitted reference range : 0.0 - 10.0 /100 WBCs. The refer ence range was not u sed to interpret th is result as normal/abnormal . NRBC x10^3 (test code <0.01 See_Comment [Auto mated = 8436384919) message] The s ystem which generated this result transmitted reference range : 10*3/?L. The reference range was not used to interpret this result as normal/abnormal . GRAN MAT (NEUT) % 63.4 % (test code = 770-8) IMM GRAN % (test code 0.50 % = 4455902946) LYMPH % (test code = 24.1 % 736-9) MONO % (test code = 10.9 % 5905-5) EOS % (test code = 0.6 % 713-8) BASO % (test code = 0.5 % 706-2) GRAN MAT x10^3(ANC) 6.49 10*3/uL 1.88-7.09 (test code = 4932964287) IMM GRAN x10^3 (test 0.05 10*3/uL 0.00-0.06 code = 4236672015) LYMPH x10^3 (test code 2.47 10*3/uL 1.32-3.29 = 731-0) MONO x10^3 (test code 1.11 10*3/uL 0.33-0.92 H = 742-7) EOS x10^3 (test code = 0.06 10*3/uL 0.03-0.39 711-2) BASO x10^3 (test code 0.05 10*3/uL 0.01-0.07 = 704-7) Lab Interpretation Abnormal (test code = 22512-2) [facility] L[facility] SP[facility] 2 [id number] 02:31:30XR LUMBAR SPINE 2 VW HISTORY: Female [...] alignment.No more than mild degenerative changes are present.[facility]XR KNEE 3 VW [id number] 20:14:59 No acute bony abnormality. Osteoarthrosis. Moderate [...] effusion.Soft tissue swelling.Preliminary Report Dictated by Resident: Daisy Jordan MD., have reviewed this study and agree with the abovereport. [facility] KNEE 3 VW [id number] 20:12:411. Osteoarthritic changes are present at the [...] - 10/06/2020 2:13 PM CSTORDERING PHYSICIAN: ELLIE KUOTHREE VIEWS OF THE RIGHT KNEE.DATE: 10/06/2020CLINICAL HISTORY: [...] without evidencefor acute osseous abno rmality.RL: [id number] [facility]"
[2022-03-19 15:26] LABS: Absolute Lymphocytes (CBC) 1.6 K/uL (0.7-4.9); Hematocrit 37.4 % (36.0-45.0); Lymphocytes % 27.9 % (15.3-44.8); MPV 8.1 fL (7.6-11.3); RBC Red Blood Cell Count 4.25 M/uL (3.86-4.86)
[2022-03-19 15:27] LABS: Protime INR 1.1
[2022-03-19 15:53] LABS: Albumin 3.5 g/dL (3.4-5.0); Bilirubin Direct 0.1 mg/dL (0-0.2); Bilirubin Total 0.3 mg/dL (0.2-1.0); Magnesium 1.9 mg/dL (1.8-2.4); Potassium 3.4 mmol/L (3.5-5.1); Protein, Total 8.6 g/dL (6.4-8.2); Troponin High Sensitivity 3.7 pg/mL (<58.9)
--- NOTE | 2022-03-19 15:57 | RAD REPORT ---
EXAM DESCRIPTION: CT - Head Brain Wo Cont - 03/19/2022 3:42 pm CLINICAL HISTORY: Alteration of consciousness/confusion COMPARISON: None. TECHNIQUE: Computed axial tomography of the head was obtained. IV contrast was not requested. All CT scans are performed using dose optimization technique as appropriate and may include automated exposure control or mA/KV adjustment according to patient size. FINDINGS: An intracranial bleed is not seen . The ventricles are normal in caliber. No significant hypodense areas within the brain visualized No extra-axial fluid collection is noted. Fluid within the sinuses/ mastoids is not seen. IMPRESSION: No acute intracranial abnormality is seen. If patient's symptoms persist MRI of the bra in would be recommended.
[2022-03-19 16:10] LABS: Urine Bacteria >50 /HPF (<20); Urine RBC <5 /HPF (NONE SEEN)
--- NOTE | 2022-03-19 16:36 | RAD REPORT ---
EXAM DESCRIPTION: Lauren Single View03/19/2022 3:41 pm CLINICAL HISTORY: sob COMPARISON: December 2021 FINDINGS: The lungs appear clear of acute infiltrate. The heart is normal size IMPRESSION: No acute abnormalities displayed
--- NOTE | 2022-03-19 16:42 | RAD REPORT ---
EXAM DESCRIPTION: USExtrem Venous W Compress Bil03/19/2022 4:30 pm CLINICAL HISTORY: Leg pain COMPARISON: December 2021 FINDINGS: The common femoral, superficial femoral, popliteal and posterior tibial veins bilaterally are compressible and demonstrate augmentation. Doppler demonstrates good flow. 3.9 cm right Soto's cyst Grayscale, color and spectral analysis performed on all vessels IMPRESSION: No evidence of deep venous thrombosis involving either lower extremity. 3.9 centimeter right Soto's cyst
[2022-03-19] MEDS ORDERED: NA CHLORIDE 0.9% 50 ML ONE (16:50)
[2022-03-19] MEDS ORDERED: CEFTRIAXONE 1000 MG/VIAL ONE (16:50)
--- NOTE | 2022-03-19 20:18 | RAD REPORT ---
EXAM DESCRIPTION: CT - Abdomen Pelvis W Contrast - 03/19/2022 8:04 pm CLINICAL HISTORY: Abdominal pain COMPARISON: December 2021 TECHNIQUE: Computed axial tomography of the abdomen pelvis was obtained. 100 cc Isovue-300 was admin istered intravenously. Oral contrast was not requested which limits evaluation of bowel and appendix. All CT scans are performed using dose optimization technique as appropriate and may include automated exposure control or mA/KV adjustment according to patient size. FINDINGS: The liver, spleen, pancreas, adrenal and kidneys appear unremarkable. There is no evidence of diverticulitis. Normal appendix. No adnexal mass. 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
--- NOTE | 2022-03-19 21:02 | RAD REPORT ---
EXAM DESCRIPTION: RAD - Femur Left - 03/19/2022 8:44 pm CLINICAL HISTORY: Left leg pain FINDINGS: No fracture is seen. No bony lesion is displayed. Moderate osteoarthritis medial compartment knee
[2022-03-19] MEDS ORDERED: POTASSIUM 25 MEQ EFFERV TAB ONE (21:08)
--- NOTE | 2022-03-19 21:27 | EDPHYS ---
Physician Documentation [facility] Name: Nisreen Astorga Age: 51 yrs Sex: Female : 1970 Arrival Date: 03/19/2022 Time: 14:50 Bed 2 Private MD: ED Physician Geoffrey Scott HPI: 03/19 15:05 This 51 yrs old Black Female presents to ER via EMS with complaints of Body Pain. cp 15:05 The patient's problem is reported as weakness, that is generalized. Onset: The cp symptoms/episode began/occurred today. Duration: The episode is continuous. 15:05 Associated signs and symptoms: Pertinent positives: generalized pain, fatigue, leg cp swelling and left upper leg pain. 15:05 Patient's baseline: Neuro: alert and fully oriented, Motor: no deficits, Ambulation: cp walks without assistance, Speech: normal. 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/A - Irregular menses jd3 Historical: - Allergies: 15:01 No Known Allergies; jd3 - Home Meds: 15:01 amlodipine 10 mg tab 1 tab once daily [Active]; Katerine Aspirin 325 mg Oral tab 1 tab jd3 once daily [Active]; chlorpheniramine maleate(bulk) 4 mg miscellaneous powd [Active]; Coreg 80 mg Oral 1 tab [Active]; cyclobenzaprine 10 mg Oral tab 1 tab 3 times per day [Active]; citalopram 20 mg tab 1 tab once daily [Active]; hydralazine 10 mg Oral tab 1 tab 2 times per day [Active]; losartan 100 mg Oral tab 1 tab once daily [Active]; metoprolol tartrate 50 mg Oral tab 1 tab 2 times per day [Active]; naproxen 500 mg Oral tab 1 tab 2 times per day [Active]; Vitamin D-3 with Aloe 5000 intl units Oral tab daily [Active]; - PMHx: 15:01 Asthma; Hypertension; jd3 - Immunization history:: Adult Immunizations up to date, Client reports receiving the 2nd dose of the Covid vaccine, Flu vaccine status is unknown. - Social history:: Smoking status: Patient denies any tobacco usage or history of. ROS: 15:10 Constitutional: Positive for body aches, Negative for fever, poor PO intake. cp 15:10 Eyes: Negative for injury, pain, redness, and discharge. cp 15:10 ENT: Negative for drainage from ear(s), ear pain, sore throat, difficulty swallowing, difficulty handling secretions. 15:10 Cardiovascular: Positive for edema, Negative for chest pain, palpitations. 15:10 Respiratory: Negative for cough, shortness of breath, wheezing. 15:10 Abdomen/GI: Negative for abdominal pain, vomiting, diarrhea, constipation. 15:10 Back: Negative for pain at rest, pain with movement. 15:10 MS/extremity: Positive for pain, of the left groin, Negative for paresthesias. 15:10 Neuro: Positive for weakness, Negative for altered mental status, dizziness, headache, loss of consciousness, syncope. 15:10 All other systems are negative. Exam: 15:10 ECG was reviewed by the Attending Physician. cp 15:15 Constitutional: The patient appears in no acute distress, alert, awake, cp non-diaphoretic, non-toxic, well developed, well nourished, obese. 15:15 Head/Face: Normocephalic, atraumatic. cp 15:15 Eyes: Periorbital structures: appear normal, Pupils: equal, round, and reactive to light and accomodation, Extraocular movements: intact throughout, Conjunctiva: normal, no exudate, no injection, Sclera: no appreciated abnormality, Lids and lashes: appear normal, bilaterally. 15:15 ENT: External ear(s): are unremarkable, Nose: is normal, Mouth: Lips: moist, Oral mucosa: pink and intact, moist, Posterior pharynx: Airway: no evidence of obstruction, patent, swelling, is not appreciated, erythema, is not appreciated, exudate, is not appreciated. 15:15 Neck: ROM/movement: is normal, is supple, without pain, no range of motions limitations, no meningismus. 15:15 Chest/axilla: Inspection: normal. 15:15 Cardiovascular: Rate: normal, Rhythm: regular, Edema: ankle edema, that is mild, JVD: is not appreciated. 15:15 Respiratory: the patient does not display signs of respiratory distress, Respirations: normal, no use of accessory muscles, no retractions, labored breathing, is not present, Breath sounds: are clear throughout, no decreased breath sounds, no stridor, no wheezing. 15:15 Abdomen/GI: Inspection: obese Bowel sounds: active, all quadrants, Palpation: soft, in all quadrants, mild abdominal tenderness, in the right lower quadrant and left lower quadrant, rebound tenderness, is not appreciated, voluntary guarding, is not appreciated, involuntary guarding, is not appreciated. 15:15 Back: CVA tenderness, is absent. 15:15 Musculoskeletal/extremity: Extremities: grossly normal except: noted in the left upper leg: pain, tenderness, Pulses: noted to be 2+ in the right radial artery, right dorsalis pedis artery, left radial artery and left dorsalis pedis artery. 15:15 Neuro: Orientation: to person, place \\T\\ time. Mentation: able to follow commands, slow to respond, Motor: moves all fours, strength is normal, Sensation: no obvious gross deficits. 16:35 Radiologist reports: no acute findings cp Vital Signs: 15:02 BP 120 / 67; Pulse 90; Resp 19 S; Temp 97.7(TE); Pulse Ox 99% on R/A; Weight 154.22 kg jd3 (R); Height 5 ft. 4 in. (162.56 cm) (R); Pain 10/10; 16:02 BP 123 / 62; Pulse 82; Resp 18 S; Pulse Ox 100% on R/A; jd3 16:54 BP 133 / 71; Pulse 79; Resp 18 S; Pulse Ox 100% on R/A; jd3 17:51 BP 117 / 60; Pulse 75; Resp 16 S; Pulse Ox 100% on R/A; jd3 18:49 BP 115 / 82; Pulse 81; Resp 18 S; Pulse Ox 99% on R/A; jd3 15:02 Body Mass Index 58.36 (154.22 kg, 162.56 cm) jd3 MDM: 14:57 Patient medically screened. cp 21:26 Data reviewed: vital signs, nurses notes, lab test result(s), EKG, radiologic studies, cp CT scan, plain films, ultrasound. 21:26 Differential diagnosis: CVA, TIA, metabolic disorder, drug effects, DVT, UTI, sepsis. cp Test interpretation: by ED physician or midlevel provider: ECG, plain radiologic studies. Counseling: I had a detailed discussion with the patient and/or guardian regarding: the historical points, exam findings, and any diagnostic results supporting the discharge/admit diagnosis, lab results, radiology results, the need for outpatient follow up, a family practitioner, to return to the emergency department if symptoms worsen or persist or if there are any questions or concerns that arise at home. Response to treatment: the patient's symptoms have markedly improved after treatment, and as a result, I will discharge patient. 03/19 15:00 Order name: Basic Metabolic Panel; Complete Time: 16:33 03/19 16:34 Interpretation: Normal except: K 3.4; GLUC 125; BUN 29; CRE 1.42; GFR 47. 03/19 15:00 Order name: CBC with Diff; Complete Time: 15:55 03/19 18:25 Interpretation: Normal except: RDW 15.3. 03/19 15:00 Order name: LFT's; Complete Time: 16:33 03/19 16:34 Interpretation: Normal except: TP 8.6; GLOB 5.1; A/G 0.7. 03/19 15:00 Order name: Magnesium; Complete Time: 16:33 03/19 15:00 Order name: NT PRO-BNP; Complete Time: 16:33 03/19 15:00 Order name: PT-INR; Complete Time: 15:55 03/19 15:00 Order name: Troponin HS; Complete Time: 16:33 03/19 15:00 Order name: XRAY Chest (1 view); Complete Time: 17:01 03/19 17:01 Interpretation: Report review. 03/19 15:00 Order name: CT Head Brain wo Cont; Complete Time: 16:33 03/19 18:24 Interpretation: Report reviewed. 03/19 15:00 Order name: US Extremity Venous W Compression Iban; Complete Time: 17:01 03/19 18:25 Interpretation: Report reviewed. 03/19 15:00 Order name: Urine Microscopic Only; Complete Time: 16:33 03/19 16:34 Interpretation: Normal except: UBACT >50; SQEPI 5-10. 03/19 15:15 Order name: SARS-COV-2 RT PCR (Document "Date of Onset" if Symptomatic); Complete Time: iw 17:03/19 15:23 Order name: Glucose, Ancillary Testing; Complete Time: 15:55 EDMS 03/19 16:13 Order name: Urine Culture EDOH 03/19 15:00 Order name: EKG; Complete Time: 15:01 cp 03/19 15:00 Order name: Cardiac monitoring; Complete Time: 15:17 cp 03/19 15:00 Order name: EKG - Nurse/Tech; Complete Time: 15:17 cp 03/19 15:00 Order name: IV Saline Lock; Complete Time: 15:17 cp 03/19 15:00 Order name: Labs collected and sent; Complete Time: 15:17 cp 03/19 15:00 Order name: O2 Per Protocol; Complete Time: 15:18 03/19 15:00 Order name: O2 Sat Monitoring; Complete Time: 15:30 cp 03/19 15:00 Order name: Urine Dipstick-Ancillary (obtain specimen); Complete Time: 16:51 03/19 15:00 Order name: Urine Test (obtain specimen); Complete Time: 16:51 03/19 15:00 Order name: Accucheck Blood Glucose; Complete Time: 15:17 03/19 19:19 Order name: CT Abd/Pelvis - IV Contrast Only; Complete Time: 20:48 03/19 20:48 Interpretation: Report reviewed. 03/19 19:33 Order name: XRAY Femur LEFT; Complete Time: 21:25 cp EC:10 Rate is 86 beats/min. Rhythm is regular. TN interval is normal. QRS interval is normal. cp QT interval is normal. Interpreted by me. Reviewed by me. Administered Medications: 16:51 Drug: Rocephin - (cefTRIAXone) 1 grams Route: IVPB; Infused Over: 30 mins; Site: right jd3 antecubital; 17:50 Follow up: Response: No adverse reaction; IV Status: Completed infusion jd3 21:24 Drug: Potassium Effervescent Tablet 25 mEq Route: PO; vc1 Disposition: 03/20 15:46 Co-signature as Attending Physician, Geoffrey Scott MD I agree with the assessment and kdr plan of care. Disposition Summary: 03/19/22 21:26 Discharge Ordered Location: Home cp Problem: new cp Symptoms: have improved cp Condition: Stable cp Diagnosis - Pain in left leg cp - UTI/ Urinary tract infection, site not specified cp - Pain, unspecified cp Followup: cp - With: Private Physician - When: 2 - 3 days - Reason: Recheck today's complaints Discharge Instructions: - Discharge Summary Sheet cp - Musculoskeletal Pain cp - Urinary Tract Infection, Adult cp Forms: - Medication Reconciliation Form cp - Thank You Letter cp - Antibiotic Education cp - Prescription Opioid Use cp Prescriptions: - Augmentin 875-125 mg Oral Tablet - take 1 tablet by ORAL route every 12 hours for 7 days; 14 tablet; Refills: 0, cp Product Selection Permitted - Tramadol 50 mg Oral Tablet - take 1 tablet by ORAL route every 8 hours as needed; 12 tablet; Refills: 0, cp Product Selection Permitted Signatures: Dispatcher [employer] EDMS Geoffrey Scott MD MD kdr Blu Macario, APPLICATIONS ARCHITECT-C APPLICATIONS ARCHITECT-Cla1 Karlos Goodman PA PA Dusty Herndon, RN RN jd3 Olga Thacker RN RN vc1 Corrections: (The following items were deleted from the chart) 03/19 19:54 19:21 Humerus Left+RAD.RAD.BRZ ordered. EDOH EDMS
--- NOTE | 2022-03-19 21:27 | ER ---
Nurse's Notes [facility] Name: Nisreen Astorga Age: 51 yrs Sex: Female : 1970 Arrival Date: 03/19/2022 Time: 14:50 Bed 2 Private MD: Diagnosis: Pain in left leg;UTI/ Urinary tract infection, site not specified;Pain, unspecified Presentation: 03/19 14:58 Chief complaint: EMS states: "pt is reporting full body pain, but specifically to her jd3 legs and groin area. she is having LOR leg edema and reports history of CHF. she is also reporting a possible UTI.". Coronavirus screen: At this time, the client does not indicate any symptoms associated with coronavirus-19. Ebola Screen: No symptoms or risks identified at this time. Initial Sepsis Screen: Does the patient meet any 2 criteria? No. Patient's initial sepsis screen is negative. Does the patient have a suspected source of infection? No. Patient's initial sepsis screen is negative. Risk Assessment: Do you want to hurt yourself or someone else? Patient reports no desire to harm self or others. Onset of symptoms was March 19, 2022. 14:58 Method Of Arrival: EMS: [facility] jd3 14:58 Acuity: DANIEL 3 jd3 GENERAL COUNSEL: 15:02 LMP N/A - Irregular menses jd3 Historical: - Allergies: 15:01 No Known Allergies; jd3 - Home Meds: 15:01 amlodipine 10 mg tab 1 tab once daily [Active]; Katerine Aspirin 325 mg Oral tab 1 tab jd3 once daily [Active]; chlorpheniramine maleate(bulk) 4 mg miscellaneous powd [Active]; Coreg 80 mg Oral 1 tab [Active]; cyclobenzaprine 10 mg Oral tab 1 tab 3 times per day [Active]; citalopram 20 mg tab 1 tab once daily [Active]; hydralazine 10 mg Oral tab 1 tab 2 times per day [Active]; losartan 100 mg Oral tab 1 tab once daily [Active]; metoprolol tartrate 50 mg Oral tab 1 tab 2 times per day [Active]; naproxen 500 mg Oral tab 1 tab 2 times per day [Active]; Vitamin D-3 with Aloe 5000 intl units Oral tab daily [Active]; - PMHx: 15:01 Asthma; Hypertension; jd3 - Immunization history:: Adult Immunizations up to date, Client reports receiving the 2nd dose of the Covid vaccine, Flu vaccine status is unknown. - Social history:: Smoking status: Patient denies any tobacco usage or history of. Screenin:05 Abuse screen: Denies threats or abuse. Nutritional screening: No deficits noted. jd3 Tuberculosis screening: No symptoms or risk factors identified. Fall Risk Ambulatory Aid- None/Bed Rest/Nurse Assist (0 pts). Gait- Normal/Bed Rest/Wheelchair (0 pts) Mental Status- Oriented to own ability (0 pts). Total Whitmore Fall Scale indicates No Risk (0-24 pts). Assessment: 15:03 General: Appears in no apparent distress. uncomfortable, Behavior is calm, cooperative, jd3 appropriate for age. Pain: Complains of pain in groin, right leg and left leg Quality of pain is described as radiating, sharp. Neuro: Level of Consciousness is awake, alert, obeys commands, Oriented to person, place, time, situation. Cardiovascular: Capillary refill < 3 seconds Patient's skin is warm and dry. Edema is 2+ to LOR legs. Respiratory: Airway is patent Respiratory effort is even, unlabored, Respiratory pattern is regular, symmetrical, Denies cough, shortness of breath. GI: No signs and/or symptoms were reported involving the gastrointestinal system. : No signs and/or symptoms were reported regarding the genitourinary system. EENT: No signs and/or symptoms were reported regarding the EENT system. Derm: Skin is intact, Skin is dry, Skin is normal, Skin temperature is warm. Musculoskeletal: Circulation, motion, and sensation intact. Range of motion: intact in all extremities. 16:02 Reassessment: Patient appears in no apparent distress at this time. No changes from jd3 previously documented assessment. Patient and/or family updated on plan of care and expected duration. Pain level reassessed. Patient is alert, oriented x 3, equal unlabored respirations, skin warm/dry/pink. 16:54 Reassessment: Patient appears in no apparent distress at this time. Patient and/or jd3 family updated on plan of care and expected duration. Pain level reassessed. Patient is alert, oriented x 3, equal unlabored respirations, skin warm/dry/pink. 17:50 Reassessment: Patient appears in no apparent distress at this time. Patient and/or jd3 family updated on plan of care and expected duration. Pain level reassessed. Patient is alert, oriented x 3, equal unlabored respirations, skin warm/dry/pink. resting in bed with eyes closed, even and unlabored respirations. call light in reach. lights turned off to allow pt to rest. 18:49 Reassessment: Patient appears in no apparent distress at this time. Patient and/or jd3 family updated on plan of care and expected duration. Pain level reassessed. Patient is alert, oriented x 3, equal unlabored respirations, skin warm/dry/pink. Vital Signs: 15:02 BP 120 / 67; Pulse 90; Resp 19 S; Temp 97.7(TE); Pulse Ox 99% on R/A; Weight 154.22 kg jd3 (R); Height 5 ft. 4 in. (162.56 cm) (R); Pain 10/10; 16:02 BP 123 / 62; Pulse 82; Resp 18 S; Pulse Ox 100% on R/A; jd3 16:54 BP 133 / 71; Pulse 79; Resp 18 S; Pulse Ox 100% on R/A; jd3 17:51 BP 117 / 60; Pulse 75; Resp 16 S; Pulse Ox 100% on R/A; jd3 18:49 BP 115 / 82; Pulse 81; Resp 18 S; Pulse Ox 99% on R/A; jd3 15:02 Body Mass Index 58.36 (154.22 kg, 162.56 cm) [facility] ED Course: 14:50 Patient arrived in ED. eb 14:51 Karlos Goodman PA is PHCP. cp 14:51 Geoffrey Scott MD is Attending Physician. cp 14:58 Dusty Hollins RN is Primary Nurse. jd3 15:01 Triage completed. jd3 15:03 Arm band placed on. jd3 15:05 Patient has correct armband on for positive identification. Bed in low position. Call j light in reach. Side rails up X 1. Adult w/ patient. Pulse ox on. NIBP on. 15:18 SARS-COV-2 RT PCR (Document "Date of Onset" if Symptomatic) Sent. jd3 15:43 XRAY Chest (1 view) In Process Unspecified. EDMS 15:44 CT Head Brain wo Cont In Process Unspecified. EDMS 16:32 US Extremity Venous W Compression Lor In Process Unspecified. EDMS 20:06 CT Abd/Pelvis - IV Contrast Only In Process Unspecified. EDMS 20:46 XRAY Femur LEFT In Process Unspecified. EDMS Administered Medications: 16:51 Drug: Rocephin - (cefTRIAXone) 1 grams Route: IVPB; Infused Over: 30 mins; Site: right [facility] antecubital; 17:50 Follow up: Response: No adverse reaction; IV Status: Completed infusion jd3 21:24 Drug: Potassium Effervescent Tablet 25 mEq Route: PO; vc1 Outcome: 21:26 Discharge ordered by . alex 22:41 Patient left the ED. vc1 Signatures: Dispatcher [employer] EDMS Karlos Goodman PA PA cp Davies, Jonathon, RN RN jd3 Diana Quinn Vanessa, RN RN vc1
[2022-03-20 00:27] VITALS: TEMP 97.7
[2022-03-20 00:33] VITALS: BP 115/82; O2SAT 99
== END 2022-03-19 22:41 | disposition home or self-care (01) ==
LOC: ER 14:46
DX: N39.0 Urinary tract infection, site not specified (principal); M79.605 Pain in left leg; I10 Essential (primary) hypertension; J45.909 Unspecified asthma, uncomplicated
CPT/HCPCS: 36415; 70450; 71045; 74177; 80048; 80076; 81015; 82947; 83735; 83880; 84484; 85025; 85610; 87086; 87088; 93005; 93970; 96365; 99284; Q9967; U0003

== ENCOUNTER 2024-10-10 11:09 | Emergency (ER) | payer OTHER ==
--- OUTSIDE RECORDS SUMMARY | 2024-10-10 11:19 | XMS REPORT | Continuity of Care Document ---
Author Name Unknown Address [address] [facility] [address] [place] [address] [facility] thconnect Address [address] [facility] 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 Name Role Phone PASCUAL LESLIE Primary Care Physician Unavailab Kaye Valdez Attending Clinician Unavailable 3, ES ROOM Attending Clinician Unavailable ISABELLA JACOBSON Attending Clinician Unavailable PASCUAL MEDEL Attending Clinician Unavailab TEVIN Mauricio Attending Clinician Unavailable GEORGES SUAREZ Attending Clinician Unavailable SAY IRVAS Attending Clinician UnavailJIN Mayo Attending Clinician Unavailable BRITTNEY MOON Attending Clinician Unavailable WILL Attending Clinician Unavailable AMBER ORDOÑEZ Attending Clinician Unavailable 1, ES ROOM Attending Clinician Unavailable DARRION THOMPSON Attending Clinician Unavailable LAB90 Attending Clinician Unavailable CHELSI LEACH Attending Clinician Unava ilable RADIOLOGY, DEPT Attending Clinician Unavailable IRWIN ALCANTAR Attending Clinician Unav ailable MD DANA Attending Clinician Unavailab HANANE Hicks Attending Clinician Un available CARLOZ FELTON Attending Clinician Unavailable TRED47 Attending Clinician Unavailable DARLENE GAN Attending Clinician Unavailable LAB47 Attending Clinician Unavailable Pascual Pandey Attending Clinician [phone] PASCUAL LESLIE Attending Clinician Unavailable YOEL CHOI Attending Clinician Unavailable YOEL CHOI Attending Clinician Unavailable Doctor Unassigned, [place] Attending Clinician U navailable Marley Carvajal Attending Clinician Unavaila LAYA Cano Attending Clinician Unavailab Laya Saleh DO Attending Clinician [phone] REAGAN LUTZ Attending Clinician Unavailable Reagan Lutz MD Attending Clinician [phone] Lab, Ang - Db Attending Clinician Unavailable Ramona Garcia Attending Clinician [phone] EDIE DELONG Attending Clinician Unavailable DOROTA SHAVER Attending Clinician Unavailable FRANK MADDEN Attending Clinician Unavailable Alison Gardner LVN Attending Clinician [phone] JERARDO DELGADO Attending Clinician Unavailable Jerardo Delgado DO Attending Clinician [phone] EZRA MILLIGAN Attending Clinician Unavailable Ezra Milligan MD Attending Clinician [phone] Consuelo Clayton RN Attending Clinician Unav Frank Adler MD Attending Clinician [phone] RADHA BHATT Attending Clinician Unavailable Andie, Cory Primary Attending Clinician UnavailEllie Magana Attending Clinician [phone] ELLIE KUO Attending Clinician Unavailable Dorota Shaver MD Attending Clinician [phone] REN TERAN Attending Clinician Unavailable Lab, Adc Fam Pob I Attending Clinician Unavailab Ren Radford Attending Clinician [phone] , Adc Echo Room 1 - Attending Clinician UnaREAGAN Perkins Admitting Clinician Unavailable JERARDO DELGADO Admitting Clinician Unavailable Jerardo Delgado DO Admitting Clinician [phone] EZRA MILLIGAN Admitting Clinician Unavailable Payers Payer Name Policy Type Policy Number Effective Date Expirati on Date Source [employer] [id number] 00:00:00 [employer] [facility] [employer]NA[employer] 94 ON 9 [id number] 2023 00:00:00 [employer]ENEFIT MANAGEMENT ADMIN 2 [id number] 2024 00:00:00 Problems Condition Name Condition Details Condition Category Status Onset Date Resolution Date Last Treatment Date Treating Clinician Comments Source Acrochordo n Acrochordo n Disease Active 7- 00:00: 00 Maru Seybold - Externa l Chronic pancreatit is (multi HCC) Chronic pancreatit is (multi HCC) Disease Active 6- 00:00: 00 Maru Seybold - Externa l Current mild episode of major depressive disorder Current mild episode of major depressive disorder Disease Active 3- 00:00: 00 Maru Seybold - Externa l Hypertensi on Hypertensi on Disease Active 01-18 00:00: 00 Maru Seybold - Externa l High cholestero l High cholestero l Disease Active 01-18 00:00: 00 Maru Seybold - Externa l Asthma (HHS-HCC) Asthma (HHS-HCC) Disease Active 01-18 00:00: 00 Maru Seybold - Externa l Well adult exam Well adult exam Disease Active 01-18 00:00: 00 Maru Seybold - Externa l Class 3 severe obesity due to excess calories without serious comorbidit y with body mass index (BMI) of 50.0 to 59.9 in adult Class 3 severe obesity due to excess calories without serious comorbidit y with body mass index (BMI) of 50.0 to 59.9 in adult Disease Active 01-18 00:00: 00 Maru Seybold - Externa l Acute sinusitis Acute sinusitis Disease Active -15 00:00: 00 Maru Seybold - Externa l 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 Disease Active 2020-11 2- 00:00: 00 [facility] Pancreatit is, unspecifie d pancreatit is type Pancreatit is, unspecifie d pancreatit is type Disease Active 2020-11 00:00: 00 [facility] Well woman exam Well woman exam Disease Active 05-27 00:00: 00 [facility] Heavy menses Heavy menses Disease Active 05-27 00:00: 00 [facility] Asthma Asthma Disease Active 2014-11 00:00: 00 [facility] H/O tubal ligation H/O tubal ligation Disease Active 2014-11 00:00: 00 [facility] Morbid obesity Morbid obesity Disease Active 11-24 00:00: 00 [facility] Hypertensi on Hypertensi on Disease Active 11-24 00:00: 00 [facility] [id number] Moderate persistent asthma without complicati on Problem [facility] [id number] Generalize d osteoarthr itis Problem [facility] [id number] Hypertensi ve heart disease without heart failure Problem [facility] [id number] Primary osteoarthr itis of left knee Problem [facility] [id number] BMI 50.0-59.9, adult Problem [facility] [id number] Moderate persistent asthma with acute exacerbati on Problem [facility] [id number] Mixed hyperlipid emia Problem [facility] [id number] Essential (primary) hypertensi on Problem [facility] Allergic rhinitis Non-season al allergic rhinitis, unspecifie d trigger Problem [facility] [id number] Primary osteoarthr itis of right knee Problem [facility] Allergies, Adverse Reactions, Alerts Allergy Name Allergy Type Status Severity Reaction(s) Onset Date Inactive Date Treating Clinician Comments Source NO KNOWN ALLERGIE S Drug Class Active [facility] Social History Social Habit Start Date Stop Date Quantity Comments Source Sexual orientation Delphine Garza - External ASSERTION Not Maru Garza - External History of tobacco use Passive smoker Maru Seybol d - External Alcoholic beverage intake 2024-10-03 00:00:00 2024-10-03 00:00:00 Lifetime non-drinker (finding) Maru Tijerinageronimomirella - External Alcohol intake 2024-01-18 00:00:00 2024-01-18 00:00:00 Lifetime non-drinker (finding) Maru Garza - External Sex 2023-11-22 09:46:53 2023-11-22 09:46:53 Female (finding) Maru Garza - External Tobacco use and exposure 2023-11-22 00:00:00 2023-11-22 00:00:00 Smokeless tobacco non-user Maru Garza - External History of Social function 2023-11-22 00:00:00 2023-11-22 00:00:00 Maru Garza - External Exposure to SARS-CoV-2 (event) 2022-10-01 00:00:00 2022-10-11 18:31:00 Not sure [facility] Education 2021-10-29 00:00:00 2021-10-29 00:00:00 11 [facility] Sex assigned at 1970 00:00:00 1970 00:00:00 Maru jose antonio - External Smoking Status Start Date Stop Date Source Never smoked tobacco Maru Garza - External Medications Ordered Medication Name Filled Medication Name Start Date Stop Date Current Medication? Ordering Clinician Indication Dosage Frequency Signature (SIG) Comments Components Source Azithromyci n 250 MG oral Tablet 2023-11 00:00: 00 10-09 05:59 :00 Yes [id number] Take 2 tablets by mouth on day 1 then 1 tablet by mouth daily for 4 days thereafter .. Maru enriquez FLUTICASONE PROPIONATE, NASAL, 50 MCG/ACT nasal Suspension 2023-11 00:00: 00 Yes [id number] 50ug QD Use 1 spray (50 mcg total) in each nostril daily. Maru enriquez Furosemide (LASIX) 20 MG oral Tablet 2023-11 10:20: 51 Yes 20mg QD Take 1 tablet (20 mg total) by mouth daily. Maru enriquez Multiple Vitamin (MULTI VITAMIN DAILY OR) 2023-11 10:20: 51 Yes 1{tbl} QD Take 1 tablet by mouth daily. Maru enriquez Albuterol Sulfate 1.25 MG/3ML inhalation Inhalant Solution 2023-11 10:20: 51 Yes 1.25mg Q.25D Take 3 mL (1.25 mg total) by nebulizati on every 6 hours as needed for wheezing. Maru enriquez Benzonatate 100 MG oral Capsule 2023-11 10:20: 51 Yes 100mg Q.[id number] 3D Take 1 capsule (100 mg total) by mouth 3 times daily as needed for cough. Maru enriquez Furosemide (LASIX) 20 MG oral Tablet 2023-11 10:38: 51 Yes 20mg QD Take 1 tablet (20 mg total) by mouth daily. Maru enriquez Multiple Vitamin (MULTI VITAMIN DAILY OR) 2023-11 10:38: 51 Yes 1{tbl} QD Take 1 tablet by mouth daily. Maru enriquez Albuterol Sulfate 1.25 MG/3ML inhalation Inhalant Solution 2023-11 10:38: 51 Yes 1.25mg Q.25D Take 3 mL (1.25 mg total) by nebulizati on every 6 hours as needed for wheezing. Maru enriquez Benzonatate 100 MG oral Capsule 2023-11 10:38: 51 Yes 100mg Q.[id number] 3D Take 1 capsule (100 mg total) by mouth 3 times daily as needed for cough. Maru enriquez Olopatadine HCl 0.2 % ophthalmic Solution 2023-11 00:00: 00 Yes [id number] 9102 1[drp] QD Apply 1 drop to eye daily. Maru enriquez Ibuprofen (MOTRIN) 800 MG oral Tablet 2023-11 00:00: 00 Yes [id number] 800mg Q.[id number] 3D Take 1 tablet (800 mg total) by mouth every 8 hours as needed for pain. Maru enriquez Pantoprazol e Sodium 20 MG oral Tablet Delayed Response 2023-11 00:00: 00 Yes [id number] 20mg QD Take 1 tablet (20 mg total) by mouth daily. Maru enriquez Olopatadine HCl 0.2 % ophthalmic Solution 2023-11 00:00: 00 Yes [id number] 9102 1[drp] QD Apply 1 drop to eye daily. Maru enriquez Olopatadine HCl 0.2 % ophthalmic Solution 2023-11 00:00: 00 09-04 00:00 :00 No [id number] 9102 1[drp] QD Apply 1 drop to eye daily. Maru enriquez Chlorthalid one 50 MG oral Tablet 08-05 00:00: 00 Yes [id number] 50mg QD Take 1 tablet (50 mg total) by mouth daily. Maru enriquez Chlorthalid one 50 MG oral Tablet 08-05 00:00: 00 Yes [id number] 50mg QD Take 1 tablet (50 mg total) by mouth daily. Maru enriquez Losartan Potassium (COZAAR) 100 MG oral Tablet 07-28 00:00: 00 Yes [id number] 100mg QD Take 1 tablet (100 mg total) by mouth daily. Maru enriquez Losartan Potassium (COZAAR) 100 MG oral Tablet 07-28 00:00: 00 Yes [id number] 100mg QD Take 1 tablet (100 mg total) by mouth daily. Maru enriquez Loratadine (CLARITIN) 10 MG oral tablet 07-28 00:00: 00 Yes [id number] 10mg QD Take 1 tablet (10 mg total) by mouth daily. Maru enriquez Fluticasone -Salmeterol 250-50 MCG/ACT inhalation AEROSOL POWDER, BREATH ACTIVATED 07-22 00:00: 00 Yes [id number] 1{puff} Q.5D Inhale 1 puff into the lungs 2 times daily. Maru enriquez Furosemide (LASIX) 20 MG oral Tablet 07-13 09:10: 01 Yes 20mg QD Take 1 tablet (20 mg total) by mouth daily. Maru enriquez Multiple Vitamin (MULTI VITAMIN DAILY OR) 07-13 09:10: 01 Yes 1{tbl} QD Take 1 tablet by mouth daily. Maru enirquez Albuterol Sulfate 1.25 MG/3ML inhalation Inhalant Solution 07-13 09:10: 01 Yes 1.25mg Q.25D Take 3 mL (1.25 mg total) by nebulizati on every 6 hours as needed for wheezing. Maru enriquez Montelukast (SINGULAIR) 10 MG oral Tablet tablet 07-13 00:00: 00 Yes [id number] 10mg QD Take 1 tablet (10 mg total) by mouth nightly. Maru enriquez Benzonatate (Tessalon Perles) 100 MG oral Capsule 06-22 00:00: 00 09-04 00:00 :00 No [id number] 91304 100mg Q.[id number] 3D Take 1 capsule (100 mg total) by mouth 3 times daily as needed for cough. Maru enriquez PAXLOVID STANDARD (30) (300/100) Therapy Pack 06-22 00:00: 00 06-28 04:59 :00 No [id number] Take two 150 mg nirmatrelv ir (pink) tablets with one 100 mg ritonavir (white) tablet by mouth two times daily for 5 days. Maru enriquez Azithromyci n 250 MG oral Tablet 06-20 00:00: 00 06-26 04:59 :00 No [id number] Take 2 tablets by mouth on day 1 then 1 tablet by mouth daily for 4 days thereafter .. Maru enriquez Loratadine (CLARITIN) 10 MG oral tablet 05-25 09:20: 19 05-25 00:00 :00 No 10mg 1 tablet (10 mg total) every 24 hours. Maru enriquez Fexofenadin e HCl (ALTHEA ALLERGY OR) 05-25 09:19: 48 05-25 00:00 :00 No Take by mouth. Maru enriquez Furosemide (LASIX) 20 MG oral Tablet 05-25 08:42: 25 Yes 20mg QD Take 1 tablet (20 mg total) by mouth daily. Maru enriquez Acetaminoph en (TYLENOL ARTHRITIS PAIN OR) 05-25 08:42: 25 Yes Take by mouth. Maru enriquez Albuterol Sulfate 1.25 MG/3ML inhalation Inhalant Solution 05-25 08:42: 25 Yes 1.25mg Q.25D Take 3 mL (1.25 mg total) by nebulizati on every 6 hours as needed for wheezing. Maru enriquez Loratadine (CLARITIN) 10 MG oral tablet 05-25 00:00: 00 Yes [id number] 10mg QD Take 1 tablet (10 mg total) by mouth daily. Maru enriquez Citalopram Hydrobromid e 20 MG oral Tablet 05-13 00:00: 00 Yes [id number] 20mg QD Take 1 tablet (20 mg total) by mouth daily. Maru enriquez Citalopram Hydrobromid e 20 MG oral Tablet 05-13 00:00: 00 Yes [id number] 20mg QD Take 1 tablet (20 mg total) by mouth daily. Maru enriquez Citalopram Hydrobromid e 20 MG oral Tablet 05-13 00:00: 00 Yes [id number] 20mg QD Take 1 tablet (20 mg total) by mouth daily. Maru enriquez Furosemide (LASIX) 20 MG oral Tablet 04-24 08:29: 29 Yes 20mg Take 1 tablet (20 mg total) by mouth daily. Maru enriquez Fexofenadin e HCl (ALTHEA ALLERGY OR) 04-24 08:29: 29 Yes Take by mouth. Maru enriquez Loratadine (CLARITIN) 10 MG oral tablet 04-24 08:29: 29 Yes 10mg 1 tablet (10 mg total) every 24 hours. Maru enriquez Acetaminoph en (TYLENOL ARTHRITIS PAIN OR) 04-24 08:28: 37 Yes Take by mouth. Maru enriquez Albuterol Sulfate 1.25 MG/3ML inhalation Inhalant Solution 04-24 08:28: 37 Yes 1.25mg Q.25D Take 3 mL (1.25 mg total) by nebulizati on every 6 hours as needed for wheezing. Maru enriquez Fluticasone -Salmeterol 250-50 MCG/ACT inhalation AEROSOL POWDER, BREATH ACTIVATED 04-24 00:00: 00 Yes [id number] 1{puff} Q.5D Inhale 1 puff into the lungs 2 times daily. Maru enriquez Naproxen 500 MG oral Tablet 03-29 00:00: 00 Yes 500mg Take 1 tablet (500 mg total) by mouth in the morning and 1 tablet (500 mg total) in the evening. Take with meals. Prn pain. Take with Meals, STOP IF UPSET STOMACH. Maru enriquez Gabapentin 300 MG oral Capsule 02-19 00:00: 00 Yes [id number] 300mg Take 1 capsule (300 mg total) by mouth 3 times daily No driving or drinking alcohol with medication . Maru enriquez Gabapentin 300 MG oral Capsule 02-19 00:00: 00 Yes [id number] 300mg Take 1 capsule (300 mg total) by mouth 3 times daily No driving or drinking alcohol with medication . Maru enriquez Gabapentin 300 MG oral Capsule 02-19 00:00: 00 Yes [id number] 300mg Q.[id number] 3D Take 1 capsule (300 mg total) by mouth 3 times daily No driving or drinking alcohol with medication . Maru enriquez Gabapentin 300 MG oral Capsule 02-19 00:00: 00 Yes [id number] 300mg Q.[id number] [id number] 3D Take 1 capsule (300 mg total) by mouth 3 times daily No driving or drinking alcohol with medication . Maru Gingermirella - Externa l Gabapentin 300 MG oral Capsule 02-19 00:00: 00 Yes [id number] 300mg Q.01032900 [id number] 3D Take 1 capsule (300 mg total) by mouth 3 times daily No driving or drinking alcohol with medication . Maru Tijreinageronimomirella - Externa l Gabapentin 300 MG oral Capsule 02-19 00:00: 00 Yes [id number] 300mg Q.27075009 [id number] 3D Take 1 capsule (300 mg total) by mouth 3 times daily No driving or drinking alcohol with medication . Maru Kayla - Externa l Chlorthalid one 50 MG oral Tablet 0 -15 00:00: 00 Yes [id number] 50mg Take 1 tablet (50 mg total) by mouth daily. Maru Garza - Externa l Amlodipine Besylate 10 MG oral Tablet 0 -15 00:00: 00 Yes [id number] 10mg Take 1 tablet (10 mg total) by mouth daily. Maru Garza - Externa l Chlorthalid one 50 MG oral Tablet 0 -15 00:00: 00 Yes [id number] 50mg Take 1 tablet (50 mg total) by mouth daily. Maru Kayla - Externa l Amlodipine Besylate 10 MG oral Tablet 0 15 00:00: 00 Yes [id number] 10mg Take 1 tablet (10 mg total) by mouth daily. Maru Garza - Externa l Chlorthalid one 50 MG oral Tablet 0 -15 00:00: 00 Yes [id number] 50mg QD Take 1 tablet (50 mg total) by mouth daily. Maru Garza - Externa l Amlodipine Besylate 10 MG oral Tablet 2023-0 3-15 00:00: 00 Yes [id number] 10mg QD Take 1 tablet (10 mg total) by mouth daily. Maru Garza - Externa l Chlorthalid one 50 MG oral Tablet 2023-0 3-15 00:00: 00 Yes [id number] 50mg QD Take 1 tablet (50 mg total) by mouth daily. Maru Garza - Externa l Amlodipine Besylate 10 MG oral Tablet 02-02 00:00: 00 Yes [id number] 10mg QD Take 1 tablet (10 mg total) by mouth daily. Maru enriquez Amlodipine Besylate 10 MG oral Tablet 02-02 00:00: 00 Yes [id number] 10mg QD Take 1 tablet (10 mg total) by mouth daily. Maru enriquez Amlodipine Besylate 10 MG oral Tablet 02-02 00:00: 00 Yes [id number] 10mg QD Take 1 tablet (10 mg total) by mouth daily. Maru enriquez Carvedilol 25 MG oral Tablet 01-29 00:00: 00 Yes [id number] 25mg Take 1 tablet (25 mg total) by mouth daily. Maru enriquez Losartan Potassium (COZAAR) 100 MG oral Tablet 01-29 00:00: 00 Yes [id number] 100mg Take 1 tablet (100 mg total) by mouth daily. Maru enriquez Carvedilol 25 MG oral Tablet 01-29 00:00: 00 Yes [id number] 25mg Take 1 tablet (25 mg total) by mouth daily. Maru enriquez Citalopram Hydrobromid e 20 MG oral Tablet 01-29 00:00: 00 Yes [id number] 20mg Take 1 tablet (20 mg total) by mouth daily. Maru enriquez Losartan Potassium (COZAAR) 100 MG oral Tablet 01-29 00:00: 00 Yes [id number] 100mg Take 1 tablet (100 mg total) by mouth daily. Maru enriquez Carvedilol 25 MG oral Tablet 01-29 00:00: 00 Yes [id number] 25mg QD Take 1 tablet (25 mg total) by mouth daily. Maru enriquez Losartan Potassium (COZAAR) 100 MG oral Tablet 01-29 00:00: 00 Yes [id number] 100mg QD Take 1 tablet (100 mg total) by mouth daily. Maru enriquez Carvedilol 25 MG oral Tablet 01-29 00:00: 00 Yes [id number] 25mg QD Take 1 tablet (25 mg total) by mouth daily. Maru enriquez Losartan Potassium (COZAAR) 100 MG oral Tablet 01-29 00:00: 00 Yes [id number] 100mg QD Take 1 tablet (100 mg total) by mouth daily. Maru enriquez Carvedilol 25 MG oral Tablet 01-29 00:00: 00 Yes [id number] 25mg QD Take 1 tablet (25 mg total) by mouth daily. Maru enriquez Carvedilol 25 MG oral Tablet 01-29 00:00: 00 Yes [id number] 25mg QD Take 1 tablet (25 mg total) by mouth daily. Maru enriquez Olopatadine HCl 0.1 % ophthalmic Solution 01-29 00:00: 00 06-22 00:00 :00 No [id number] 1[drp] Q.5D Place 1 drop into both eyes 2 times daily. Maru enriquez Cefdinir 300 MG oral Capsule 00:00: 00 04-24 00:00 :00 No [id number] 300mg Take 1 capsule (300 mg total) by mouth 2 times daily. Maru enriquez Chlorthalid one 50 MG oral Tablet 01-18 08:20: 20 Yes 50mg Take 1 tablet (50 mg total) by mouth daily. Maru enriquez Amlodipine Besylate 10 MG oral Tablet 01-18 08:20: 20 Yes 10mg Take 1 tablet (10 mg total) by mouth daily. Maru enriquez Losartan Potassium (COZAAR) 100 MG oral Tablet 01-18 08:20: 20 Yes 100mg Take 1 tablet (100 mg total) by mouth daily. Maru enriquez Furosemide (LASIX) 20 MG oral Tablet 01-18 08:20: 20 Yes 20mg Take 1 tablet (20 mg total) by mouth daily. Maru enriquez Fexofenadin e HCl (ALTHEA ALLERGY OR) 01-18 08:20: 20 Yes Take by mouth. Maru enriquez Albuterol Sulfate (PROAIR HFA IN) 01-18 08:20: 20 Yes Inhale into the lungs. Maru enriquez Albuterol Sulfate 1.25 MG/3ML inhalation Inhalant Solution 01-18 08:20: 20 Yes 1.25mg Q.25D Take 3 mL (1.25 mg total) by nebulizati on every 6 hours as needed for wheezing. Maru enriquez Loratadine (CLARITIN) 10 MG oral tablet 01-18 08:20: 20 Yes 10mg 1 tablet (10 mg total) every 24 hours. Maru enriquez Naproxen 500 MG oral Tablet 01-07 00:00: 00 02-06 04:59 :00 No 500mg Take 1 tablet (500 mg total) by mouth in the morning and 1 tablet (500 mg total) in the evening. Take with meals. Maru enriquez Chlorthalid one 50 MG oral Tablet 01-05 13:31: 38 Yes 50mg Take 1 tablet (50 mg total) by mouth daily. Maru enriquez Amlodipine Besylate 10 MG oral Tablet 01-05 13:31: 38 Yes 10mg Take 1 tablet (10 mg total) by mouth daily. Maru enriquez Losartan Potassium (COZAAR) 100 MG oral Tablet 01-05 13:31: 38 Yes 100mg Take 1 tablet (100 mg total) by mouth daily. Maru enriquez Furosemide (LASIX) 20 MG oral Tablet 01-05 13:31: 38 Yes 20mg Take 1 tablet (20 mg total) by mouth daily. Maru enriquez Fexofenadin e HCl (ALTHEA ALLERGY OR) 01-05 13:31: 38 Yes Take by mouth. Maru enriquez Albuterol Sulfate (PROAIR HFA IN) 01-05 13:31: 38 Yes Inhale into the lungs. Maru enriquez Albuterol Sulfate 1.25 MG/3ML inhalation Inhalant Solution 01-05 13:31: 38 Yes 1.25mg Q.25D Take 3 mL (1.25 mg total) by nebulizati on every 6 hours as needed for wheezing. Maru enriquez Loratadine (CLARITIN) 10 MG oral tablet 01-05 13:31: 38 Yes 10mg 1 tablet (10 mg total) every 24 hours. Maru enriquez Benzonatate (Tessalon Perles) 100 MG oral Capsule 01-05 00:00: 00 Yes [id number] 100mg Q.[id number] 3D Take 1 capsule (100 mg total) by mouth 3 times daily as needed for cough. Maru enriquez Azithromyci n 250 MG oral Tablet 01-05 00:00: 00 01-11 05:59 :00 No [id number] Take 2 tablets by mouth on day 1 then 1 tablet by mouth daily for 4 days thereafter .. Maru enriquez Bilateral Injection: Methylpredn isolone Acetate (Depo-Medro l) 40 mg/ml, 80mg - Physician Administere d ([id number]) 12-29 16:15: 00 12-29 18:20 :00 No [id number] 80mg Maru enriquez Chlorthalid one 50 MG oral Tablet 12-29 09:48: 06 Yes 50mg Take 1 tablet (50 mg total) by mouth daily. Maru enriquez Amlodipine Besylate 10 MG oral Tablet 12-29 09:48: 06 Yes 10mg Take 1 tablet (10 mg total) by mouth daily. Maru enriquez Losartan Potassium (COZAAR) 100 MG oral Tablet 12-29 09:48: 06 Yes 100mg Take 1 tablet (100 mg total) by mouth daily. Maru enriquez Furosemide (LASIX) 20 MG oral Tablet 12-29 09:48: 06 Yes 20mg Take 1 tablet (20 mg total) by mouth daily. Maru enriquez Fexofenadin e HCl (ALTHEA ALLERGY OR) 12-29 09:48: 06 Yes Take by mouth. Maru enriquez Albuterol Sulfate (PROAIR HFA IN) 12-29 09:48: 06 Yes Inhale into the lungs. Maru enriquez Albuterol Sulfate 1.25 MG/3ML inhalation Inhalant Solution 12-29 09:48: 06 Yes 1.25mg Q.25D Take 3 mL (1.25 mg total) by nebulizati on every 6 hours as needed for wheezing. Maru enriquez Loratadine (CLARITIN) 10 MG oral tablet 12-29 09:48: 06 Yes 10mg 1 tablet (10 mg total) every 24 hours. Maru enriquez Citalopram Hydrobromid e 20 MG oral Tablet 12-22 00:00: 00 Yes 20mg Take 1 tablet (20 mg total) by mouth daily. Maru enriquez Fluticasone -Salmeterol (Advair Diskus) 250-50 MCG/ACT inhalation AEROSOL POWDER, BREATH ACTIVATED 12-21 10:42: 08 12-21 00:00 :00 No 1{puff} Inhale 1 puff into the lungs 2 times daily. Maru enriquez Olopatadine HCl 0.1 % ophthalmic Solution 12-21 10:42: 08 12-21 00:00 :00 No 1[drp] Place 1 drop into both eyes 2 times daily. Maru enriquez Furosemide (LASIX) 20 MG oral Tablet 12-21 10:17: 12 Yes 20mg Take 1 tablet (20 mg total) by mouth daily. Maru enriquez Loratadine (CLARITIN) 10 MG oral tablet 12-21 10:17: 12 Yes 10mg 1 tablet (10 mg total) every 24 hours. Maru enriquez Albuterol Sulfate (PROAIR HFA IN) 12-21 10:15: 51 Yes Inhale into the lungs. Maru enriquez Albuterol Sulfate 1.25 MG/3ML inhalation Inhalant Solution 12-21 10:15: 51 Yes 1.25mg Q.25D Take 3 mL (1.25 mg total) by nebulizati on every 6 hours as needed for wheezing. Maru enriquez Acetaminoph en (TYLENOL ARTHRITIS PAIN OR) 12-21 10:15: 51 Yes Take by mouth. Maru enriquez Olopatadine HCl 0.1 % ophthalmic Solution 12-21 00:00: 00 Yes [id number] 1[drp] Place 1 drop into both eyes 2 times daily. Maru enriquez Fluticasone -Salmeterol (Advair Diskus) 250-50 MCG/ACT inhalation AEROSOL POWDER, BREATH ACTIVATED 12-21 00:00: 00 Yes [id number] 1{puff} Inhale 1 puff into the lungs 2 times daily. Maru enriquez Citalopram Hydrobromid e 20 MG oral Tablet 12-09 17:02: 52 12-09 00:00 :00 No 20mg Take 1 tablet (20 mg total) by mouth daily. Maru enriquez Carvedilol Phosphate 20 MG oral Capsule 24 Hour Sustained Release 12-09 16:38: 03 12-09 00:00 :00 No 20mg Take 1 capsule (20 mg total) by mouth 2 times daily. [facility] Olopatadine HCl 0.1 % ophthalmic Solution 12-09 16:29: 41 Yes 1[drp] Place 1 drop into both eyes 2 times daily. [facility] Fluticasone -Salmeterol (Advair Diskus) 250-50 MCG/ACT inhalation AEROSOL POWDER, BREATH ACTIVATED 12-09 16:28: 06 Yes 1{puff} Inhale 1 puff into the lungs 2 times daily. [facility] Furosemide (LASIX) 20 MG oral Tablet 12-09 16:28: 06 Yes 20mg Take 1 tablet (20 mg total) by mouth daily. [facility] Fexofenadin e HCl (ALTHEA ALLERGY OR) 12-09 16:28: 06 Yes Take by mouth. [facility] Albuterol Sulfate (PROAIR HFA IN) 12-09 16:28: 06 Yes Inhale into the lungs. [facility] Albuterol Sulfate 1.25 MG/3ML inhalation Inhalant Solution 12-09 16:28: 06 Yes 1.25mg Q.25D Take 3 mL (1.25 mg total) by nebulizati on every 6 hours as needed for wheezing. [facility] Loratadine (CLARITIN) 10 MG oral tablet 12-09 16:28: 06 Yes 10mg 1 tablet (10 mg total) every 24 hours. [facility] Naproxen 500 MG oral Tablet 12-09 00:00: 00 Yes TAKE 1 TABLET BY MOUTH IN THE MORNING AND 1 TABLET IN THE EVENING WITH MEALS [facility] Semaglutide -WEGOSoniyaY-Ayden ght Management 0.25 MG/0.5ML Subcutaneou s Solution Auto-inject or 12-09 00:00: 00 01-09 05:59 :00 No [id number] .25mg Inject 0.25 mg into the skin once a week. [facility] Fluticasone -Salmeterol (Advair Diskus) 250-50 MCG/ACT inhalation AEROSOL POWDER, BREATH ACTIVATED 11-23 09:06: 33 Yes 1{puff} Inhale 1 puff into the lungs 2 times daily. [facility] Citalopram Hydrobromid e 20 MG oral Tablet 11-23 09:06: 33 Yes 20mg Take 1 tablet (20 mg total) by mouth daily. [facility] Furosemide (LASIX) 20 MG oral Tablet 11-23 09:06: 33 Yes 20mg Take 1 tablet (20 mg total) by mouth daily. [facility] Carvedilol Phosphate 20 MG oral Capsule 24 Hour Sustained Release 11-23 09:06: 33 Yes 20mg Take 1 capsule (20 mg total) by mouth 2 times daily. [facility] Fexofenadin e HCl (ALTHEA ALLERGY OR) 11-23 09:06: 33 Yes Take by mouth. [facility] Albuterol Sulfate (PROAIR HFA IN) 11-23 09:06: 33 Yes Inhale into the lungs. [facility] Albuterol Sulfate 1.25 MG/3ML inhalation Inhalant Solution 11-23 09:06: 33 Yes 1.25mg Q.25D Take 3 mL (1.25 mg total) by nebulizati on every 6 hours as needed for wheezing. [facility] Loratadine (CLARITIN) 10 MG oral tablet 11-23 09:06: 33 Yes 10mg 1 tablet (10 mg total) every 24 hours. [facility] Gabapentin 300 MG oral Capsule 11-23 00:00: 00 Yes [id number] 300mg Take 1 capsule (300 mg total) by mouth 3 times daily. [facility] Carvedilol 25 MG oral Tablet 2022-11 00:00: 00 Yes TAKE 1 TABLET BY MOUTH TWICE DAILY WITH FOOD (STOP ER 80MG) [facility] metoprolol succinate XL 100 mg 24 hr tablet 02-14 00:00: 00 Yes [id number] 100mg Take 1 tablet by mouth in the morning. [facility] acetaminoph en (TYLENOL) tablet 1,000 mg 2021-11 02:30: 00 10-12 01:43 :00 No 1000mg 1,000 mg, Oral, ONCE, 1 dose, On Tue10/11/22 at 2030, Routine [facility] ibuprofen (IBU) tablet 600 mg 2021-11 00:45: 00 10-12 00:46 :00 No 600mg 600 mg, Oral, ONCE, 1 dose, On Tue10/11/22 at 1845, JEAN CARLOS [facility] baclofen 10 mg tablet 2021-11 00:00: 00 Yes [id number] 10mg Take 1 tablet by mouth 3 (three) times daily as needed for Pain (scale 7-10). [facility] aspirin 81 mg chewable tablet 08-12 16:25: 29 Yes 81mg Take 81 mg by mouth daily. [facility] vitamin B complex (B COMPLEX-VIT LEON B12 ORAL) 08-12 16:25: 29 Yes Take by mouth daily. [facility] iopamidol (ISOVUE 370-500 mL) injection 100 mL 08-11 06:15: 00 08-11 06:15 :00 No [id number] 100mL 100 mL, Intravenou s, ONCE, 1 dose, On Tue08/11/22 at 0115, Routine [facility] ondansetron (ZOFRAN (PF)) injection 4 mg 08-11 04:30: 00 08-11 03:43 :00 No 4mg 4 mg, Slow IV Push, ONCE, 1 dose, On Tue08/10/22 at 2330, JEAN CARLOS [facility] dicyclomine 20 mg tablet 08-11 00:00: 00 Yes [id number] 20mg Take 1 tablet by mouth 4 (four) times daily. [facility] metoclopram payton HCl 10 mg tablet 08-11 00:00: 00 Yes [id number] 10mg Take 1 tablet by mouth every 6 (six) hours. [facility] fluticasone propion-tigist meteroL (ADVAIR DISKUS) 250-50 mcg/dose inhalation disk 07-08 00:00: 00 Yes [id number] 1{puff} Inhale 1 Puff every 12 (twelve) hours. [facility] fluticasone propion-tigist meteroL (ADVAIR DISKUS) 250-50 mcg/dose inhalation disk 07-08 00:00: 00 Yes [id number] 1{puff} Inhale 1 Puff every 12 (twelve) hours. [facility] baclofen 10 mg tablet 07-08 00:00: 00 09-10 00:00 :00 No [id number] 10mg Take 1 tablet by mouth 3 (three) times daily as needed for Pain (scale 7-10). [facility] diclofenac 75 mg EC tablet 07-07 00:00: 00 Yes [id number] 75mg Take 1 tablet by mouth 2 (two) times daily as needed for Pain or Inflammati on (use sparingly due to side effects). [facility] cyclobenzap rine 10 mg tablet 06-10 00:00: 00 Yes [id number] 10mg Take 1 tablet by mouth 3 (three) times daily as needed for Muscle Spasms. [facility] citalopram 20 mg tablet 06-10 00:00: 00 Yes [id number] 20mg Take 1 tablet by mouth in the morning. [facility] carvedilol (COREG CR) 80 mg 24 hr capsule 06-10 00:00: 00 02-14 00:00 :00 No [id number] 80mg Take 1 capsule by mouth in the morning. [facility] fluticasone propion-tigist meteroL (ADVAIR DISKUS) 250-50 mcg/dose inhalation disk 06-10 00:00: 00 07-08 00:00 :00 No [id number] 1{puff} Inhale 1 Puff every 12 (twelve) hours. [facility] fluticasone propion-tigist meteroL (ADVAIR DISKUS) 250-50 mcg/dose inhalation disk 06-10 00:00: 00 07-08 00:00 :00 No [id number] 1{puff} Inhale 1 Puff every 12 (twelve) hours. [facility] diclofenac 75 mg EC tablet 06-10 00:00: 00 07-07 00:00 :00 No [id number] 75mg Take 1 tablet by mouth in the morning and 1 tablet in the evening. Take with meals. [facility] diphenhydra mine HCl (ALLERGY RELIEF ORAL) 2020-11 16:07: 50 Yes Take by mouth daily. [facility] aspirin 81 mg chewable tablet 2020-11 16:07: 50 Yes 81mg Take 81 mg by mouth daily. [facility] bromphenira mine-pseudo ephedrine-D M (BROMFED DM) 2-30-10 mg/5 mL syrup 05-28 00:00: 00 Yes [id number] 5mL Take 5 mL by mouth 4 (four) times daily as needed for Congestion /Allergies or Cough. [facility] albuterol (PROAIR HFA) 90 mcg/actuati on inhaler 05-28 00:00: 00 Yes [id number] 2{puff} Inhale 2 Puffs every 4 (four) hours as needed for Wheezing or Shortness of Breath. Use 1 puff by mouth every 4 to 6 hours as needed for wheezing [facility] ibuprofen 600 mg tablet 05-26 00:00: 00 Yes [id number] 600mg Take 1 tablet by mouth every 6 (six) hours as needed for Pain (scale 4-6). [facility] HYDRALAZINE 10 mg tablet 3-15 00:00: 00 Yes [id number] Take 1 tablet by mouth twice daily [facility] baclofen 10 mg tablet 2019-11 0-29 00:00: 00 07-08 00:00 :00 No [id number] 10mg Take 1 tablet by mouth 3 (three) times daily as needed for Pain (scale 7-10). [facility] Citalopram Hydrobromid e 20 MG Citalopram Hydrobromid e 20 MG No 1{table t} QD Citalopram Hydrobromi de 20 MG Advair Diskus 250-50 MCG/ACT Advair Diskus 250-50 MCG/ACT No 1{puff} BID Advair Diskus 250-50 MCG/ACT Loratadine 10 MG Loratadine 10 MG No 1{table t} QD Loratadine 10 MG Furosemide 20 MG Furosemide 20 MG No 1{table t} BID Furosemide 20 MG Albuterol Sulfate HFA 108 (90 Base) MCG/ACT Albuterol Sulfate HFA 108 (90 Base) MCG/ACT No 1{puff_ as_need ed} 6xD Albuterol Sulfate HFA 108 (90 Base) MCG/ACT Citalopram Hydrobromid e 20 MG Citalopram Hydrobromid e 20 MG No 1{table t} QD Citalopram Hydrobromi de 20 MG Advair Diskus 250-50 MCG/ACT Advair Diskus 250-50 MCG/ACT No 1{puff} BID Advair Diskus 250-50 MCG/ACT Loratadine 10 MG Loratadine 10 MG No 1{table t} QD Loratadine 10 MG Furosemide 20 MG Furosemide 20 MG No 1{table t} BID Furosemide 20 MG Albuterol Sulfate HFA 108 (90 Base) MCG/ACT Albuterol Sulfate HFA 108 (90 Base) MCG/ACT No 1{puff_ as_need ed} 6xD Albuterol Sulfate HFA 108 (90 Base) MCG/ACT Citalopram Hydrobromid e 20 MG Citalopram Hydrobromid e 20 MG No 1{table t} QD Citalopram Hydrobromi de 20 MG Advair Diskus 250-50 MCG/ACT Advair Diskus 250-50 MCG/ACT No 1{puff} BID Advair Diskus 250-50 MCG/ACT Loratadine 10 MG Loratadine 10 MG No 1{table t} QD Loratadine 10 MG Furosemide 20 MG Furosemide 20 MG No 1{table t} BID Furosemide 20 MG Albuterol Sulfate HFA 108 (90 Base) MCG/ACT Albuterol Sulfate HFA 108 (90 Base) MCG/ACT No 1{puff_ as_need ed} 6xD Albuterol Sulfate HFA 108 (90 Base) MCG/ACT Citalopram Hydrobromid e 20 MG Citalopram Hydrobromid e 20 MG No 1{table t} QD Citalopram Hydrobromi de 20 MG Advair Diskus 250-50 MCG/ACT Advair Diskus 250-50 MCG/ACT No 1{puff} BID Advair Diskus 250-50 MCG/ACT Olopatadine HCl 0.2 % Olopatadine HCl 0.2 % No 1{drop_ into_af fected_ eye} QD Olopatadin e HCl 0.2 % Loratadine 10 MG Loratadine 10 MG No 1{table t} QD Loratadine 10 MG Furosemide 20 MG Furosemide 20 MG No 1{table t} BID Furosemide 20 MG Albuterol Sulfate HFA 108 (90 Base) MCG/ACT Albuterol Sulfate HFA 108 (90 Base) MCG/ACT No 1{puff_ as_need ed} 6xD Albuterol Sulfate HFA 108 (90 Base) MCG/ACT Citalopram Hydrobromid e 20 MG Citalopram Hydrobromid e 20 MG No 1{table t} QD Citalopram Hydrobromi de 20 MG Advair Diskus 250-50 MCG/ACT Advair Diskus 250-50 MCG/ACT No 1{puff} BID Advair Diskus 250-50 MCG/ACT Olopatadine HCl 0.2 % Olopatadine HCl 0.2 % No 1{drop_ into_af fected_ eye} QD Olopatadin e HCl 0.2 % Loratadine 10 MG Loratadine 10 MG No 1{table t} QD Loratadine 10 MG Furosemide 20 MG Furosemide 20 MG No 1{table t} BID Furosemide 20 MG Albuterol Sulfate HFA 108 (90 Base) MCG/ACT Albuterol Sulfate HFA 108 (90 Base) MCG/ACT No 1{puff_ as_need ed} 6xD Albuterol Sulfate HFA 108 (90 Base) MCG/ACT Citalopram Hydrobromid e 20 MG Citalopram Hydrobromid e 20 MG No 1{table t} QD Citalopram Hydrobromi de 20 MG Advair Diskus 250-50 MCG/ACT Advair Diskus 250-50 MCG/ACT No 1{puff} BID Advair Diskus 250-50 MCG/ACT Olopatadine HCl 0.2 % Olopatadine HCl 0.2 % No 1{drop_ into_af fected_ eye} QD Olopatadin e HCl 0.2 % Loratadine 10 MG Loratadine 10 MG No 1{table t} QD Loratadine 10 MG Furosemide 20 MG Furosemide 20 MG No 1{table t} BID Furosemide 20 MG Albuterol Sulfate HFA 108 (90 Base) MCG/ACT Albuterol Sulfate HFA 108 (90 Base) MCG/ACT No 1{puff_ as_need ed} 6xD Albuterol Sulfate HFA 108 (90 Base) MCG/ACT Citalopram Hydrobromid e 20 MG Citalopram Hydrobromid e 20 MG No 1{table t} QD Citalopram Hydrobromi de 20 MG Advair Diskus 250-50 MCG/ACT Advair Diskus 250-50 MCG/ACT No 1{puff} BID Advair Diskus 250-50 MCG/ACT Olopatadine HCl 0.2 % Olopatadine HCl 0.2 % No 1{drop_ into_af fected_ eye} QD Olopatadin e HCl 0.2 % Loratadine 10 MG Loratadine 10 MG No 1{table t} QD Loratadine 10 MG Furosemide 20 MG Furosemide 20 MG No 1{table t} BID Furosemide 20 MG Albuterol Sulfate HFA 108 (90 Base) MCG/ACT Albuterol Sulfate HFA 108 (90 Base) MCG/ACT No 1{puff_ as_need ed} 6xD Albuterol Sulfate HFA 108 (90 Base) MCG/ACT Gabapentin 300 MG Gabapentin 300 MG No Gabapentin 300 MG Citalopram Hydrobromid e 20 MG Citalopram Hydrobromid e 20 MG No 1{table t} QD Citalopram Hydrobromi de 20 MG Advair Diskus 250-50 MCG/ACT Advair Diskus 250-50 MCG/ACT No 1{puff} BID Advair Diskus 250-50 MCG/ACT Olopatadine HCl 0.2 % Olopatadine HCl 0.2 % No 1{drop_ into_af fected_ eye} QD Olopatadin e HCl 0.2 % Loratadine 10 MG Loratadine 10 MG No 1{table t} QD Loratadine 10 MG Furosemide 20 MG Furosemide 20 MG No 1{table t} BID Furosemide 20 MG Albuterol Sulfate HFA 108 (90 Base) MCG/ACT Albuterol Sulfate HFA 108 (90 Base) MCG/ACT No 1{puff_ as_need ed} 6xD Albuterol Sulfate HFA 108 (90 Base) MCG/ACT Carvedilol 25 MG Carvedilol 25 MG No Carvedilol 25 MG Gabapentin 300 MG Gabapentin 300 MG No Gabapentin 300 MG Citalopram Hydrobromid e 20 MG Citalopram Hydrobromid e 20 MG No 1{table t} QD Citalopram Hydrobromi de 20 MG Advair Diskus 250-50 MCG/ACT Advair Diskus 250-50 MCG/ACT No 1{puff} BID Advair Diskus 250-50 MCG/ACT Olopatadine HCl 0.2 % Olopatadine HCl 0.2 % No 1{drop_ into_af fected_ eye} QD Olopatadin e HCl 0.2 % Loratadine 10 MG Loratadine 10 MG No 1{table t} QD Loratadine 10 MG Furosemide 20 MG Furosemide 20 MG No 1{table t} BID Furosemide 20 MG Albuterol Sulfate HFA 108 (90 Base) MCG/ACT Albuterol Sulfate HFA 108 (90 Base) MCG/ACT No 1{puff_ as_need ed} 6xD Albuterol Sulfate HFA 108 (90 Base) MCG/ACT Carvedilol 25 MG Carvedilol 25 MG No Carvedilol 25 MG Gabapentin 300 MG Gabapentin 300 MG No Gabapentin 300 MG amLODIPine Besylate 10 MG amLODIPine Besylate 10 MG No QD amLODIPine Besylate 10 MG Losartan Potassium 100 MG Losartan Potassium 100 MG No QD Losartan Potassium 100 MG Citalopram Hydrobromid e 20 MG Citalopram Hydrobromid e 20 MG No 1{table t} QD Citalopram Hydrobromi de 20 MG Advair Diskus 250-50 MCG/ACT Advair Diskus 250-50 MCG/ACT No 1{puff} BID Advair Diskus 250-50 MCG/ACT Olopatadine HCl 0.2 % Olopatadine HCl 0.2 % No 1{drop_ into_af fected_ eye} QD Olopatadin e HCl 0.2 % Chlorthalid one 50 MG Chlorthalid one 50 MG No QD Chlorthali done 50 MG Loratadine 10 MG Loratadine 10 MG No 1{table t} QD Loratadine 10 MG Furosemide 20 MG Furosemide 20 MG No 1{table t} BID Furosemide 20 MG Albuterol Sulfate HFA 108 (90 Base) MCG/ACT Albuterol Sulfate HFA 108 (90 Base) MCG/ACT No 1{puff_ as_need ed} 6xD Albuterol Sulfate HFA 108 (90 Base) MCG/ACT Carvedilol 25 MG Carvedilol 25 MG No Carvedilol 25 MG amLODIPine Besylate 10 MG amLODIPine Besylate 10 MG No QD amLODIPine Besylate 10 MG Losartan Potassium 100 MG Losartan Potassium 100 MG No QD Losartan Potassium 100 MG Advair Diskus 250-50 MCG/ACT Advair Diskus 250-50 MCG/ACT No 1{puff} BID Advair Diskus 250-50 MCG/ACT Gabapentin 300 MG Gabapentin 300 MG No QD Gabapentin 300 MG Olopatadine HCl 0.2 % Olopatadine HCl 0.2 % No 1{drop_ into_af fected_ eye} QD Olopatadin e HCl 0.2 % Chlorthalid one 50 MG Chlorthalid one 50 MG No QD Chlorthali done 50 MG Loratadine 10 MG Loratadine 10 MG No 1{table t} QD Loratadine 10 MG Furosemide 20 MG Furosemide 20 MG No 1{table t} BID Furosemide 20 MG Albuterol Sulfate HFA 108 (90 Base) MCG/ACT Albuterol Sulfate HFA 108 (90 Base) MCG/ACT No 1{puff_ as_need ed} 6xD Albuterol Sulfate HFA 108 (90 Base) MCG/ACT Carvedilol 25 MG Carvedilol 25 MG No Carvedilol 25 MG amLODIPine Besylate 10 MG amLODIPine Besylate 10 MG No QD amLODIPine Besylate 10 MG Losartan Potassium 100 MG Losartan Potassium 100 MG No QD Losartan Potassium 100 MG Advair Diskus 250-50 MCG/ACT Advair Diskus 250-50 MCG/ACT No 1{puff} BID Advair Diskus 250-50 MCG/ACT Gabapentin 300 MG Gabapentin 300 MG No QD Gabapentin 300 MG Olopatadine HCl 0.2 % Olopatadine HCl 0.2 % No 1{drop_ into_af fected_ eye} QD Olopatadin e HCl 0.2 % Chlorthalid one 50 MG Chlorthalid one 50 MG No QD Chlorthali done 50 MG Loratadine 10 MG Loratadine 10 MG No 1{table t} QD Loratadine 10 MG Furosemide 20 MG Furosemide 20 MG No 1{table t} BID Furosemide 20 MG Albuterol Sulfate HFA 108 (90 Base) MCG/ACT Albuterol Sulfate HFA 108 (90 Base) MCG/ACT No 1{puff_ as_need ed} 6xD Albuterol Sulfate HFA 108 (90 Base) MCG/ACT Carvedilol 25 MG Carvedilol 25 MG No Carvedilol 25 MG amLODIPine Besylate 10 MG amLODIPine Besylate 10 MG No QD amLODIPine Besylate 10 MG Losartan Potassium 100 MG Losartan Potassium 100 MG No QD Losartan Potassium 100 MG Advair Diskus 250-50 MCG/ACT Advair Diskus 250-50 MCG/ACT No 1{puff} BID Advair Diskus 250-50 MCG/ACT Gabapentin 300 MG Gabapentin 300 MG No QD Gabapentin 300 MG Olopatadine HCl 0.2 % Olopatadine HCl 0.2 % No 1{drop_ into_af fected_ eye} QD Olopatadin e HCl 0.2 % Chlorthalid one 50 MG Chlorthalid one 50 MG No QD Chlorthali done 50 MG Loratadine 10 MG Loratadine 10 MG No 1{table t} QD Loratadine 10 MG Furosemide 20 MG Furosemide 20 MG No 1{table t} BID Furosemide 20 MG Albuterol Sulfate HFA 108 (90 Base) MCG/ACT Albuterol Sulfate HFA 108 (90 Base) MCG/ACT No 1{puff_ as_need ed} 6xD Albuterol Sulfate HFA 108 (90 Base) MCG/ACT Carvedilol 25 MG Carvedilol 25 MG No Carvedilol 25 MG Gabapentin 300 MG Gabapentin 300 MG No Gabapentin 300 MG amLODIPine Besylate 10 MG amLODIPine Besylate 10 MG No QD amLODIPine Besylate 10 MG Losartan Potassium 100 MG Losartan Potassium 100 MG No QD Losartan Potassium 100 MG Citalopram Hydrobromid e 20 MG Citalopram Hydrobromid e 20 MG No 1{table t} QD Citalopram Hydrobromi de 20 MG Advair Diskus 250-50 MCG/ACT Advair Diskus 250-50 MCG/ACT No 1{puff} BID Advair Diskus 250-50 MCG/ACT Olopatadine HCl 0.2 % Olopatadine HCl 0.2 % No 1{drop_ into_af fected_ eye} QD Olopatadin e HCl 0.2 % Chlorthalid one 50 MG Chlorthalid one 50 MG No QD Chlorthali done 50 MG Loratadine 10 MG Loratadine 10 MG No 1{table t} QD Loratadine 10 MG Furosemide 20 MG Furosemide 20 MG No 1{table t} BID Furosemide 20 MG Albuterol Sulfate HFA 108 (90 Base) MCG/ACT Albuterol Sulfate HFA 108 (90 Base) MCG/ACT No 1{puff_ as_need ed} 6xD Albuterol Sulfate HFA 108 (90 Base) MCG/ACT Carvedilol 25 MG Carvedilol 25 MG No Carvedilol 25 MG Immunizations Ordered Immunization Name Filled Immunization Name Date Status Comments Source SARS-COV-2 COVID-19 MODERNA VACCINE 2022-01-06 00:00:00 Completed [facility] SARS-COV-2 COVID-19 MODERNA 12+ YRS VACCINE 2022-01-06 00:00:00 Completed [facility] SARS-COV-2 COVID-19 MODERNA 12+ YRS VACCINE 2022-01-06 00:00:00 Completed [facility] SARS-COV-2 COVID-19 MODERNA 12+ YRS VACCINE 2022-01-06 00:00:00 Completed [facility] SARS-COV-2 COVID-19 MODERNA 12+ YRS VACCINE 2022-01-06 00:00:00 Completed [facility] SARS-COV-2 COVID-19 MODERNA 12+ YRS VACCINE 2022-01-06 00:00:00 Completed [facility] SARS-COV-2 COVID-19 MODERNA 12+ YRS VACCINE 2022-01-06 00:00:00 Completed [facility] SARS-COV-2 COVID-19 MODERNA 12+ YRS VACCINE 2022-01-06 00:00:00 Completed [facility] SARS-COV-2 COVID-19 MODERNA 12+ YRS VACCINE 2022-01-06 00:00:00 Completed [facility] SARS-COV-2 COVID-19 MODERNA 12+ YRS VACCINE 2022-01-06 00:00:00 Completed [facility] SARS-COV-2 COVID-19 MODERNA 12+ YRS VACCINE 2022-01-06 00:00:00 Completed [facility] SARS-COV-2 COVID-19 MODERNA 12+ YRS VACCINE 2022-01-06 00:00:00 Completed [facility] SARS-COV-2 COVID-19 MODERNA 12+ YRS VACCINE 2022-01-06 00:00:00 Completed [facility] SARS-COV-2 COVID-19 MODERNA 12+ YRS VACCINE 2022-01-06 00:00:00 Completed [facility] SARS-COV-2 COVID-19 MODERNA 12+ YRS VACCINE 2022-01-06 00:00:00 Completed [facility] SARS-COV-2 COVID-19 MODERNA 12+ YRS VACCINE 2022-01-06 00:00:00 Completed [facility] Influenza Virus Vaccine Quad IM, Preserv and ABX Free 6 MO-64 YRS 2021-11-01 00:00:00 Completed [facility] Influenza Virus Vaccine Quad IM, Preserv and ABX Free 6 MO-64 YRS 2021-11-01 00:00:00 Completed [facility] Influenza Virus Vaccine Quad IM, Preserv and ABX Free 6 MO-64 YRS 2021-11-01 00:00:00 Completed [facility] Influenza Virus Vaccine Quad IM, Preserv and ABX Free 6 MO-64 YRS 2021-11-01 00:00:00 Completed [facility] Influenza Virus Vaccine Quad IM, Preserv and ABX Free 6 MO-64 YRS 2021-11-01 00:00:00 Completed [facility] Influenza Virus Vaccine Quad IM, Preserv and ABX Free 6 MO-64 YRS 2021-11-01 00:00:00 Completed [facility] Influenza Virus Vaccine Quad IM, Preserv and ABX Free 6 MO-64 YRS 2021-11-01 00:00:00 Completed [facility] Influenza Virus Vaccine Quad IM, Preserv and ABX Free 6 MO-64 YRS 2021-11-01 00:00:00 Completed [facility] Influenza Virus Vaccine Quad IM, Preserv and ABX Free 6 MO-64 YRS 2021-11-01 00:00:00 Completed [facility] Influenza Virus Vaccine Quad IM, Preserv and ABX Free 6 MO-64 YRS 2021-11-01 00:00:00 Completed [facility] Influenza Virus Vaccine Quad IM, Preserv and ABX Free 6 MO-64 YRS 2021-11-01 00:00:00 Completed [facility] Influenza Virus Vaccine Quad IM, Preserv and ABX Free 6 MO-64 YRS 2021-11-01 00:00:00 Completed [facility] Influenza Virus Vaccine Quad IM, Preserv and ABX Free 6 MO-64 YRS 2021-11-01 00:00:00 Completed [facility] Influenza Virus Vaccine Quad IM, Preserv and ABX Free 6 MO-64 YRS 2021-11-01 00:00:00 Completed [facility] Influenza Virus Vaccine Quad IM, Preserv and ABX Free 6 MO-64 YRS 2021-11-01 00:00:00 Completed [facility] Influenza Virus Vaccine Quad IM, Preserv and ABX Free 6 MO-64 YRS 2021-11-01 00:00:00 Completed [facility] SARS-COV-2 COVID-19 MODERNA VACCINE 2021-04-13 00:00:00 Completed [facility] SARS-COV-2 COVID-19 MODERNA 12+ YRS VACCINE 2021-04-13 00:00:00 Completed [facility] SARS-COV-2 COVID-19 MODERNA 12+ YRS VACCINE 2021-04-13 00:00:00 Completed [facility] SARS-COV-2 COVID-19 MODERNA 12+ YRS VACCINE 2021-04-13 00:00:00 Completed [facility] SARS-COV-2 COVID-19 MODERNA 12+ YRS VACCINE 2021-04-13 00:00:00 Completed [facility] SARS-COV-2 COVID-19 MODERNA 12+ YRS VACCINE 2021-04-13 00:00:00 Completed [facility] SARS-COV-2 COVID-19 MODERNA 12+ YRS VACCINE 2021-04-13 00:00:00 Completed [facility] SARS-COV-2 COVID-19 MODERNA 12+ YRS VACCINE 2021-04-13 00:00:00 Completed [facility] SARS-COV-2 COVID-19 MODERNA 12+ YRS VACCINE 2021-04-13 00:00:00 Completed [facility] SARS-COV-2 COVID-19 MODERNA 12+ YRS VACCINE 2021-04-13 00:00:00 Completed [facility] SARS-COV-2 COVID-19 MODERNA 12+ YRS VACCINE 2021-04-13 00:00:00 Completed [facility] SARS-COV-2 COVID-19 MODERNA 12+ YRS VACCINE 2021-04-13 00:00:00 Completed [facility] SARS-COV-2 COVID-19 MODERNA 12+ YRS VACCINE 2021-04-13 00:00:00 Completed [facility] SARS-COV-2 COVID-19 MODERNA 12+ YRS VACCINE 2021-04-13 00:00:00 Completed [facility] SARS-COV-2 COVID-19 MODERNA 12+ YRS VACCINE 2021-04-13 00:00:00 Completed [facility] SARS-COV-2 COVID-19 MODERNA 12+ YRS VACCINE 2021-04-13 00:00:00 Completed [facility] SARS-COV-2 COVID-19 MODERNA VACCINE 2021-03-16 00:00:00 Completed [facility] SARS-COV-2 COVID-19 MODERNA 12+ YRS VACCINE 2021-03-16 00:00:00 Completed [facility] SARS-COV-2 COVID-19 MODERNA 12+ YRS VACCINE 2021-03-16 00:00:00 Completed [facility] SARS-COV-2 COVID-19 MODERNA 12+ YRS VACCINE 2021-03-16 00:00:00 Completed [facility] SARS-COV-2 COVID-19 MODERNA 12+ YRS VACCINE 2021-03-16 00:00:00 Completed [facility] SARS-COV-2 COVID-19 MODERNA 12+ YRS VACCINE 2021-03-16 00:00:00 Completed [facility] SARS-COV-2 COVID-19 MODERNA 12+ YRS VACCINE 2021-03-16 00:00:00 Completed [facility] SARS-COV-2 COVID-19 MODERNA 12+ YRS VACCINE 2021-03-16 00:00:00 Completed [facility] SARS-COV-2 COVID-19 MODERNA 12+ YRS VACCINE 2021-03-16 00:00:00 Completed [facility] SARS-COV-2 COVID-19 MODERNA 12+ YRS VACCINE 2021-03-16 00:00:00 Completed [facility] SARS-COV-2 COVID-19 MODERNA 12+ YRS VACCINE 2021-03-16 00:00:00 Completed [facility] SARS-COV-2 COVID-19 MODERNA 12+ YRS VACCINE 2021-03-16 00:00:00 Completed [facility] SARS-COV-2 COVID-19 MODERNA 12+ YRS VACCINE 2021-03-16 00:00:00 Completed [facility] SARS-COV-2 COVID-19 MODERNA 12+ YRS VACCINE 2021-03-16 00:00:00 Completed [facility] SARS-COV-2 COVID-19 MODERNA 12+ YRS VACCINE 2021-03-16 00:00:00 Completed [facility] SARS-COV-2 COVID-19 MODERNA 12+ YRS VACCINE 2021-03-16 00:00:00 Completed [facility] Influenza Virus Vaccine Quad .5 mL IM 6+ MO 2020-09-18 00:00:00 Completed [facility] Influenza Virus Vaccine Quad .5 mL IM 6+ MO 2020-09-18 00:00:00 Completed [facility] Influenza Virus Vaccine Quad .5 mL IM 6+ MO 2020-09-18 00:00:00 Completed [facility] Influenza Virus Vaccine Quad .5 mL IM 6+ MO 2020-09-18 00:00:00 Completed [facility] Influenza Virus Vaccine Quad .5 mL IM 6+ MO 2020-09-18 00:00:00 Completed [facility] Influenza Virus Vaccine Quad .5 mL IM 6+ MO 2020-09-18 00:00:00 Completed [facility] Influenza Virus Vaccine Quad .5 mL IM 6+ MO 2020-09-18 00:00:00 Completed [facility] Influenza Virus Vaccine Quad .5 mL IM 6+ MO 2020-09-18 00:00:00 Completed [facility] Influenza Virus Vaccine Quad .5 mL IM 6+ MO 2020-09-18 00:00:00 Completed [facility] Influenza Virus Vaccine Quad .5 mL IM 6+ MO 2020-09-18 00:00:00 Completed [facility] Influenza Virus Vaccine Quad .5 mL IM 6+ MO 2020-09-18 00:00:00 Completed [facility] Influenza Virus Vaccine Quad .5 mL IM 6+ MO 2020-09-18 00:00:00 Completed [facility] Influenza Virus Vaccine Quad .5 mL IM 6+ MO 2020-09-18 00:00:00 Completed [facility] Influenza Virus Vaccine Quad .5 mL IM 6+ MO 2020-09-18 00:00:00 Completed [facility] Influenza Virus Vaccine Quad .5 mL IM 6+ MO 2020-09-18 00:00:00 Completed [facility] Influenza Virus Vaccine Quad .5 mL IM 6+ MO 2020-09-18 00:00:00 Completed [facility] Pneumococcal Polysaccharide, PPSV23 (PNEUMOVAX) 2020-01-11 00:00:00 Completed [facility] Zoster Vaccine Recombinant 2020-01-11 00:00:00 Completed [facility] Pneumococcal Polysaccharide, PPSV23 (PNEUMOVAX) 2020-01-11 00:00:00 Completed [facility] Zoster Vaccine Recombinant 2020-01-11 00:00:00 Completed [facility] Pneumococcal Polysaccharide, PPSV23 (PNEUMOVAX) 2020-01-11 00:00:00 Completed [facility] Zoster Vaccine Recombinant 2020-01-11 00:00:00 Completed [facility] Pneumococcal Polysaccharide, PPSV23 (PNEUMOVAX) 2020-01-11 00:00:00 Completed [facility] Zoster Vaccine Recombinant 2020-01-11 00:00:00 Completed [facility] Pneumococcal Polysaccharide, PPSV23 (PNEUMOVAX) 2020-01-11 00:00:00 Completed [facility] Zoster Vaccine Recombinant 2020-01-11 00:00:00 Completed [facility] Pneumococcal Polysaccharide, PPSV23 (PNEUMOVAX) 2020-01-11 00:00:00 Completed [facility] Zoster Vaccine Recombinant 2020-01-11 00:00:00 Completed [facility] Pneumococcal Polysaccharide, PPSV23 (PNEUMOVAX) 2020-01-11 00:00:00 Completed [facility] Zoster Vaccine Recombinant 2020-01-11 00:00:00 Completed [facility] Pneumococcal Polysaccharide, PPSV23 (PNEUMOVAX) 2020-01-11 00:00:00 Completed [facility] Zoster Vaccine Recombinant 2020-01-11 00:00:00 Completed [facility] Pneumococcal Polysaccharide, PPSV23 (PNEUMOVAX) 2020-01-11 00:00:00 Completed [facility] Zoster Vaccine Recombinant 2020-01-11 00:00:00 Completed [facility] Pneumococcal Polysaccharide, PPSV23 (PNEUMOVAX) 2020-01-11 00:00:00 Completed [facility] Zoster Vaccine Recombinant 2020-01-11 00:00:00 Completed [facility] Pneumococcal Polysaccharide, PPSV23 (PNEUMOVAX) 2020-01-11 00:00:00 Completed [facility] Zoster Vaccine Recombinant 2020-01-11 00:00:00 Completed [facility] Pneumococcal Polysaccharide, PPSV23 (PNEUMOVAX) 2020-01-11 00:00:00 Completed [facility] Zoster Vaccine Recombinant 2020-01-11 00:00:00 Completed [facility] Pneumococcal Polysaccharide, PPSV23 (PNEUMOVAX) 2020-01-11 00:00:00 Completed [facility] Zoster Vaccine Recombinant 2020-01-11 00:00:00 Completed [facility] Pneumococcal Polysaccharide, PPSV23 (PNEUMOVAX) 2020-01-11 00:00:00 Completed [facility] Zoster Vaccine Recombinant 2020-01-11 00:00:00 Completed [facility] Pneumococcal Polysaccharide, PPSV23 (PNEUMOVAX) 2020-01-11 00:00:00 Completed [facility] Zoster Vaccine Recombinant 2020-01-11 00:00:00 Completed [facility] Pneumococcal Polysaccharide, PPSV23 (PNEUMOVAX) 2020-01-11 00:00:00 Completed [facility] Zoster Vaccine Recombinant 2020-01-11 00:00:00 Completed [facility] Influenza Virus Vaccine Quad .5 mL IM 6+ MO 2020-01-10 00:00:00 Completed [facility] Influenza Virus Vaccine Quad .5 mL IM 6+ MO 2020-01-10 00:00:00 Completed [facility] Influenza Virus Vaccine Quad .5 mL IM 6+ MO 2020-01-10 00:00:00 Completed [facility] Influenza Virus Vaccine Quad .5 mL IM 6+ MO 2020-01-10 00:00:00 Completed [facility] Influenza Virus Vaccine Quad .5 mL IM 6+ MO 2020-01-10 00:00:00 Completed [facility] Influenza Virus Vaccine Quad .5 mL IM 6+ MO 2020-01-10 00:00:00 Completed [facility] Influenza Virus Vaccine Quad .5 mL IM 6+ MO 2020-01-10 00:00:00 Completed [facility] Influenza Virus Vaccine Quad .5 mL IM 6+ MO 2020-01-10 00:00:00 Completed [facility] Influenza Virus Vaccine Quad .5 mL IM 6+ MO 2020-01-10 00:00:00 Completed [facility] Influenza Virus Vaccine Quad .5 mL IM 6+ MO 2020-01-10 00:00:00 Completed [facility] Influenza Virus Vaccine Quad .5 mL IM 6+ MO 2020-01-10 00:00:00 Completed [facility] Influenza Virus Vaccine Quad .5 mL IM 6+ MO 2020-01-10 00:00:00 Completed [facility] Influenza Virus Vaccine Quad .5 mL IM 6+ MO 2020-01-10 00:00:00 Completed [facility] Influenza Virus Vaccine Quad .5 mL IM 6+ MO 2020-01-10 00:00:00 Completed [facility] Influenza Virus Vaccine Quad .5 mL IM 6+ MO 2020-01-10 00:00:00 Completed [facility] Influenza Virus Vaccine Quad .5 mL IM 6+ MO 2020-01-10 00:00:00 Completed [facility] TDAP 2014-10-31 00:00:00 Completed [facility] TDAP 2014-10-31 00:00:00 Completed [facility] TDAP 2014-10-31 00:00:00 Completed [facility] TDAP 2014-10-31 00:00:00 Completed [facility] TDAP 2014-10-31 00:00:00 Completed [facility] TDAP 2014-10-31 00:00:00 Completed [facility] TDAP 2014-10-31 00:00:00 Completed [facility] TDAP 2014-10-31 00:00:00 Completed [facility] TDAP 2014-10-31 00:00:00 Completed [facility] TDAP 2014-10-31 00:00:00 Completed [facility] TDAP 2014-10-31 00:00:00 Completed [facility] TDAP 2014-10-31 00:00:00 Completed [facility] TDAP 2014-10-31 00:00:00 Completed [facility] TDAP 2014-10-31 00:00:00 Completed [facility] TDAP 2014-10-31 00:00:00 Completed [facility] TDAP 2014-10-31 00:00:00 Completed [facility] Influenza, Injectable, Mdck, Preservative Free, Quadrivalent Unknown Completed [facility] - External Influenza Virus Vaccine, Quad, Egg Free Unknown Completed [facility] - External Influenza Virus Vaccine, No Preserv, age 6 months and up Unknown Completed [facility] - External TRUMENBA (Meningococcal Group B) Unknown Completed [facility] - External Pneumococcal Vaccine, Polysaccharide Unknown Completed [facility] - External Covid-19 Vaccine Moderna (Spikevax), Mrna-lnp, True Protein, Pf Unknown Completed [facility] - External Tdap- (Boostrix, Adacel) Unknown Completed [facility] - External Shingles IM (Shingrix) Unknown Completed [facility] - External Influenza, Injectable, Mdck, Preservative Free, Quadrivalent Unknown Completed [facility] - External Influenza Virus Vaccine, Quad, Egg Free Unknown Completed [facility] - External Influenza Virus Vaccine, No Preserv, age 6 months and up Unknown Completed [facility] - External TRUMENBA (Meningococcal Group B) Unknown Completed [facility] - External Pneumococcal Vaccine, Polysaccharide [facility] Moderna (Spikevax), Mrna-lnp, True Protein, Pf Unknown Completed [facility] - External Tdap- (Boostrix, Adacel) Unknown [facility] (Shingrix) Unknown Completed [facility] - External Influenza, Injectable, Mdck, Preservative Free, Quadrivalent Unknown Completed [facility] - External Influenza Virus Vaccine, Quad, Egg Free Unknown Completed [facility] - External Influenza Virus Vaccine, No Preserv, age 6 months and up Unknown Completed [facility] - External TRUMENBA (Meningococcal Group B) Unknown Completed [facility] - External Pneumococcal Vaccine, Polysaccharide Unknown Completed [facility] - External Covid-19 Vaccine Moderna (Spikevax), Mrna-lnp, True Protein, Pf Unknown Completed [facility] - External Tdap- (Boostrix, Adacel) Unknown Completed [facility] - External Shingles IM (Shingrix) Unknown Completed [facility] - External Influenza, Injectable, Mdck, Preservative Free, Quadrivalent Unknown Completed [facility] - External Influenza Virus Vaccine, Quad, Egg Free Unknown Completed [facility] - External Influenza Virus Vaccine, No Preserv, age 6 months and up Unknown Completed [facility] - External TRUMENBA (Meningococcal Group B) Unknown Completed [facility] - External Pneumococcal Vaccine, Polysaccharide Unknown Completed [facility] - External Covid-19 Vaccine Moderna (Spikevax), Mrna-lnp, True Protein, Pf Unknown Completed [facility] - External Tdap- (Boostrix, Adacel) Unknown Completed [facility] - External Shingles IM (Shingrix) Unknown Completed [facility] - External Influenza, Injectable, Mdck, Preservative Free, Quadrivalent Unknown Completed [facility] - External Influenza Virus Vaccine, Quad, Egg Free Unknown Completed [facility] - External Influenza Virus Vaccine, No Preserv, age 6 months and up Unknown Completed [facility] - External TRUMENBA (Meningococcal Group B) Unknown Completed [facility] - External Pneumococcal Vaccine, Polysaccharide [facility] Moderna (Spikevax), Mrna-lnp, True Protein, Pf [facility]ap- (Boostrix, Adacel) Unknown Completed [facility] - External Shingles IM (Shingrix) Unknown Completed [facility] - External Influenza, Injectable, Mdck, Preservative Free, Quadrivalent Unknown Completed [facility] - External Influenza Virus Vaccine, Quad, Egg Free Unknown Completed [facility] - External Influenza Virus Vaccine, No Preserv, age 6 months and up Unknown Completed [facility] - External TRUMENBA (Meningococcal Group B) Unknown Completed [facility] - External Pneumococcal Vaccine, Polysaccharide Unknown Completed [facility] - External Covid-19 Vaccine Moderna (Spikevax), Mrna-lnp, True Protein, Pf Unknown Completed [facility] - External Tdap- (Boostrix, Adacel) Unknown Completed [facility] - External Shingles IM (Shingrix) Unknown Completed [facility] - External Influenza, Injectable, Mdck, Preservative Free, Quadrivalent Unknown Completed [facility] - External Influenza Virus Vaccine, Quad, Egg Free Unknown Completed [facility] - External Influenza Virus Vaccine, No Preserv, age 6 months and up Unknown Completed [facility] S [facility] - External Influenza, Injectable, Mdck, Preservative Free, Quadrivalent Unknown Completed [facility] - External Influenza Virus Vaccine, Quad, Egg Free Unknown Completed [facility] - External TRUMENBA (Meningococcal Group B) Unknown Completed [facility] - External Influenza Virus Vaccine, No Preserv, age 6 months and up Unknown Completed [facility] - External TRUMENBA (Meningococcal Group B) Unknown Completed [facility] - External Pneumococcal Vaccine, Polysaccharide Unknown Completed [facility] - External Covid-19 Vaccine Moderna (Spikevax), Mrna-lnp, True Protein, Pf Unknown Completed [facility] - External Tdap- (Boostrix, Adacel) Unknown Completed [facility] - External Shingles IM (Shingrix) Unknown Completed [facility] - External Pneumococcal Vaccine, Polysaccharide Unknown Completed [facility] - External Covid-19 Vaccine Moderna (Spikevax), Mrna-lnp, True Protein, Pf Unknown Completed [facility] External Influenza, Injectable, Mdck, Preservative Free, Quadrivalent Unknown Completed [facility] - External Influenza Virus Vaccine, Quad, Egg Free Unknown Completed [facility] - External Influenza Virus Vaccine, No Preserv, age 6 months and up Unknown Completed [facility] - External TRUMENBA (Meningococcal Group B) Unknown Completed [facility] - External Pneumococcal Vaccine, Polysaccharide Unknown Completed [facility] - External Covid-19 Vaccine Moderna (Spikevax), Mrna-lnp, True Protein, Pf Unknown Completed [facility] - External Tdap- (Boostrix, Adacel) Unknown Completed [facility] - External Shingles IM (Shingrix) Unknown Completed [facility] - External Tdap- (Boostrix, Adacel) Unknown Completed [facility] - External Shingles IM (Shingrix) Unknown Completed [facility] - External Influenza, Injectable, Mdck, Preservative Free, Quadrivalent Unknown Completed [facility] - External Influenza Virus Vaccine, Quad, Egg Free Unknown Completed [facility] - External Influenza Virus Vaccine, No Preserv, age 6 months and up Unknown Completed [facility] - External TRUMENBA (Meningococcal Group B) Unknown Completed [facility] - External Pneumococcal Vaccine, Polysaccharide Unknown Completed [facility] - External Covid-19 Vaccine Moderna (Spikevax), Mrna-lnp, True Protein, Pf Unknown [facility] Tdap- (Boostrix, Adacel) Unknown Completed [facility] - External Shingles IM (Shingrix) Unknown Completed [facility] - External Influenza, Injectable, Mdck, Preservative Free, Quadrivalent Unknown Completed [facility] - External Influenza Virus Vaccine, Quad, Egg Free Unknown Completed [facility] - External Influenza Virus Vaccine, No Preserv, age 6 months and up Unknown Completed [facility] - External TRUMENBA (Meningococcal Group B) Unknown Completed [facility] - External Pneumococcal Vaccine, Polysaccharide Unknown Completed [facility] - External Covid-19 Vaccine Moderna (Spikevax), Mrna-lnp, True Protein, Pf Unknown [facility] - External Tdap- (Boostrix, Adacel) Unknown Completed [facility] - External Shingles IM (Shingrix) Unknown Completed [facility] - External Hep A/ Hep B Combo Unknown Completed [facility] - External Influenza Virus Vaccine, Egg Free Unknown Completed [facility] - External Influenza, Injectable, Mdck, Preservative Free, Quadrivalent Unknown Completed [facility] - External Influenza Virus Vaccine, Quad, Egg Free Unknown Completed [facility] - External Influenza Virus Vaccine, No Preserv, age 6 months and up Unknown Completed [facility] - External TRUMENBA (Meningococcal Group B) Unknown Completed [facility] - External Pneumococcal Vaccine, Polysaccharide Unknown Completed [facility] - External Covid-19 Vaccine Moderna (Spikevax), Mrna-lnp, True Protein, Pf Unknown Completed [facility] - External Tdap- (Boostrix, Adacel) Unknown Completed [facility] - External Shingles IM (Shingrix) Unknown Completed [facility] - External Hep A/ Hep B Combo Unknown Completed [facility] - External Influenza Virus Vaccine, Egg Free Unknown Completed [facility] - External Influenza, Injectable, Mdck, Preservative Free, Quadrivalent Unknown Completed [facility] - External Influenza Virus Vaccine, Quad, Egg Free Unknown Completed [facility] - External Influenza Virus Vaccine, No Preserv, age 6 months and up Unknown Completed [facility] - External TRUMENBA (Meningococcal Group B) Unknown Completed [facility] - External Pneumococcal Vaccine, Polysaccharide Unknown Completed [facility] - External Covid-19 Vaccine Moderna (Spikevax), Mrna-lnp, True Protein, Pf Unknown [facility] External Tdap- (Boostrix, Adacel) Unknown Completed [facility] - External Shingles IM (Shingrix) Unknown Completed [facility] - External Hep A/ Hep B Combo Unknown Completed [facility] - External Influenza Virus Vaccine, Egg Free Unknown Completed [facility] - External Influenza, Injectable, Mdck, Preservative Free, Quadrivalent Unknown Completed [facility] - External Influenza Virus Vaccine, Quad, Egg Free Unknown Completed [facility] - External Influenza Virus Vaccine, No Preserv, age 6 months and up Unknown Completed [facility] - External TRUMENBA (Meningococcal Group B) Unknown Completed [facility] - External Pneumococcal Vaccine, Polysaccharide Unknown Completed [facility] - External Covid-19 Vaccine Moderna (Spikevax), Mrna-lnp, True Protein, Pf Unknown [facility] - External Tdap- (Boostrix, Adacel) Unknown Completed [facility] - External Shingles IM (Shingrix) Unknown Completed [facility] - External Hep A/ Hep B Combo Unknown Completed [facility] - External Influenza Virus Vaccine, Egg Free Unknown Completed [facility] - External Influenza, Injectable, Mdck, Preservative Free, Quadrivalent Unknown Completed [facility] - External Influenza Virus Vaccine, Quad, Egg Free Unknown Completed [facility] - External Influenza Virus Vaccine, No Preserv, age 6 months and up Unknown Completed [facility] - External TRUMENBA (Meningococcal Group B) Unknown Completed [facility] - External Pneumococcal Vaccine, Polysaccharide Unknown Completed [facility] - External Covid-19 Vaccine Moderna (Spikevax), Mrna-lnp, True Protein, Pf Unknown Completed [facility] - External Tdap- (Boostrix, Adacel) Unknown Completed [facility] - External Shingles IM (Shingrix) Unknown Completed [facility] - External Vital Signs Vital Name Observation Time Observation Value Comments S ource Systolic blood pressure 2024-10-03 19:31:00 133 mm[Hg] [facility] - External Diastolic blood pressure 2024-10-03 19:31:00 63 mm[Hg] [facility] - External Heart rate 2024-10-03 19:31:00 89 /min Kelse y Seybold - External Body temperature 2024-10-03 19:31:00 36.44 Carolann [facility] - External Respiratory rate 2024-10-03 19:31:00 16 /min [facility] - External Body height 2024-10-03 19:31:00 157.5 cm Aditi ey Seybold - External Body weight 2024-10-03 19:31:00 148.78 kg Aditi ey Sey[facility] - External BMI 2024-10-03 19:31:00 59.99 kg/m2 [facility] - External Oxygen saturation in Arterial blood by Pulse oximetry 2024-10-03 19:31:00 100 /min [facility] - External Systolic blood pressure 2024-09-04 15:27:00 128 mm[Hg] [facility] - External Diastolic blood pressure 2024-09-04 15:27:00 64 mm[Hg] [facility] - External Heart rate 2024-09-04 15:27:00 102 /min Kelse y Seybold - External Body temperature 2024-09-04 15:27:00 37.67 Carolann [facility] - External Respiratory rate 2024-09-04 15:27:00 16 /min [facility] - External Body height 2024-09-04 15:27:00 157.5 cm Aditi ey [facility] - External Body weight 2024-09-04 15:27:00 148.78 kg Aditi ey [facility] - External BMI 2024-09-04 15:27:00 59.99 kg/m2 [facility] - External Systolic blood pressure 2024-07-13 14:10:00 145 mm[Hg] [facility] - External Diastolic blood pressure 2024-07-13 14:10:00 83 mm[Hg] [facility] - External Heart rate 2024-07-13 14:10:00 79 /min Kelse y [facility] - External Body temperature 2024-07-13 14:10:00 36.78 Carolann [facility] - External Respiratory rate 2024-07-13 14:10:00 20 /min [facility] - External Body height 2024-07-13 14:10:00 157.5 cm Aditi ey Seybold - External Body weight 2024-07-13 14:10:00 143.79 kg Aditi ey [facility] - External BMI 2024-07-13 14:10:00 57.98 kg/m2 [facility] - External Oxygen saturation in Arterial blood by Pulse oximetry 2024-07-13 14:10:00 97 /min [facility] - External Systolic blood pressure 2024-05-25 13:38:00 124 mm[Hg] [facility] - External Diastolic blood pressure 2024-05-25 13:38:00 72 mm[Hg] [facility] - External Heart rate 2024-05-25 13:38:00 82 /min Kielse y Seybold - External Body temperature 2024-05-25 13:38:00 36.89 Carolann [facility] - External Respiratory rate 2024-05-25 13:38:00 18 /min [facility] - External Body height 2024-05-25 13:38:00 157.5 cm Aditi ey Seybold - External Body weight 2024-05-25 13:38:00 141.069 kg Aditi ey Seybold - External BMI 2024-05-25 13:38:00 56.88 kg/m2 [facility] - External Oxygen saturation in Arterial blood by Pulse oximetry 2024-05-25 13:38:00 98 /min [facility] - External Systolic blood pressure 2024-04-24 13:21:00 128 mm[Hg] [facility] - External Diastolic blood pressure 2024-04-24 13:21:00 74 mm[Hg] [facility] - External Heart rate 2024-04-24 13:21:00 68 /min Kelse y Sey[facility] - External Body temperature 2024-04-24 13:21:00 36.83 Carolann [facility] - External Respiratory rate 2024-04-24 13:21:00 18 /min [facility] - External Body height 2024-04-24 13:21:00 157.5 cm Aditi ey Seybold - External Body weight 2024-04-24 13:21:00 139.708 kg Aditi ey Seybold - External BMI 2024-04-24 13:21:00 56.33 kg/m2 [facility] - External Oxygen saturation in Arterial blood by Pulse oximetry 2024-04-24 13:21:00 98 /min [facility] - External Body height 2024-03-29 13:32:00 157.5 cm Aditi ey Sey[facility] - External Body weight 2024-03-29 13:32:00 139.708 kg Aditi ey Seybold - External BMI 2024-03-29 13:32:00 56.33 kg/m2 [facility] - External Systolic blood pressure 2024-01-18 14:14:00 118 mm[Hg] [facility] - External Diastolic blood pressure 2024-01-18 14:14:00 68 mm[Hg] [facility] - External Heart rate 2024-01-18 14:14:00 68 /min Kielse y Seybold - External Body temperature 2024-01-18 14:14:00 36.67 Carolann [facility] - External Respiratory rate 2024-01-18 14:14:00 18 /min [facility] - External Body height 2024-01-18 14:14:00 157.5 cm Aditi ey Seybold - External Body weight 2024-01-18 14:14:00 141.522 kg Aditi ey Seybold - External BMI 2024-01-18 14:14:00 57.07 kg/m2 Ad[facility] ey [facility] - External Oxygen saturation in Arterial blood by Pulse oximetry 2024-01-18 14:14:00 97 /min [facility] - External Systolic blood pressure 2024-01-05 19:23:00 118 mm[Hg] [facility] - External Diastolic blood pressure 2024-01-05 19:23:00 74 mm[Hg] [facility] - External Heart rate 2024-01-05 19:23:00 72 /min Kelse y Seybold - External Body temperature 2024-01-05 19:23:00 36.78 Carolann [facility] - External Respiratory rate 2024-01-05 19:23:00 18 /min [facility] - External Body height 2024-01-05 19:23:00 157.5 cm Aditi ey Seybold - External Body weight 2024-01-05 19:23:00 142.146 kg Aditi ey Seybold - External BMI 2024-01-05 19:23:00 57.32 kg/m2 Ad[facility] ey [facility] - External Oxygen saturation in Arterial blood by Pulse oximetry 2024-01-05 19:23:00 98 /min [facility] - External Body weight 2023-12-29 15:46:00 145.605 kg Aditi ey Seybold - External BMI 2023-12-29 15:46:00 58.71 kg/m2 Aditi ey Seybold - External Systolic blood pressure 2023-12-21 16:08:00 122 mm[Hg] [facility] Seybo ld - External Diastolic blood pressure 2023-12-21 16:08:00 68 mm[Hg] Maru Seybo ld - External Heart rate 2023-12-21 16:08:00 68 /min Kelse y Seybold - External Body temperature 2023-12-21 16:08:00 36.89 Carolann Maru Seybold - External Respiratory rate 2023-12-21 16:08:00 18 /min Maru Seybold - External Body height 2023-12-21 16:08:00 157.5 cm Aditi ey Seybold - External Body weight 2023-12-21 16:08:00 145.661 kg Aditi ey Seybold - External BMI 2023-12-21 16:08:00 58.73 kg/m2 Aditi ey Seybold - External Oxygen saturation in Arterial blood by Pulse oximetry 2023-12-21 16:08:00 98 /min Maru Tijerinaybo ld - External Systolic blood pressure 2023-12-09 22:20:00 128 mm[Hg] Maru Seybo ld - External Diastolic blood pressure 2023-12-09 22:20:00 74 mm[Hg] Maru Seybo ld - External Heart rate 2023-12-09 22:20:00 67 /min Kelse y Seybold - External Body temperature 2023-12-09 22:20:00 36.11 Carolann Maru Seybold - External Respiratory rate 2023-12-09 22:20:00 18 /min Maru Seybold - External Body height 2023-12-09 22:20:00 157.5 cm Aditi ey Seybold - External Body weight 2023-12-09 22:20:00 142.429 kg Aditi ey Seybold - External BMI 2023-12-09 22:20:00 57.43 kg/m2 Aditi ey Seybold - External Oxygen saturation in Arterial blood by Pulse oximetry 2023-12-09 22:20:00 99 /min Maru Tijerinaybo ld - External Systolic blood pressure 2023-11-23 14:58:00 126 mm[Hg] Maru Seybo ld - External Diastolic blood pressure 2023-11-23 14:58:00 68 mm[Hg] Maru Seybo ld - External Heart rate 2023-11-23 14:58:00 78 /min Kelse y Seybold - External Body temperature 2023-11-23 14:58:00 36.67 Carolann Maru Seybold - External Respiratory rate 2023-11-23 14:58:00 16 /min Maru Seybold - External Body height 2023-11-23 14:58:00 162.6 cm Aditi ey Seybold - External Body weight 2023-11-23 14:58:00 140.842 kg Aditi ey Seybold - External BMI 2023-11-23 14:58:00 53.30 kg/m2 Aditi ey Seybold - External height 2023-10-25 09:20:00 62.5 [in_i] Comm on [facility] weight 2023-10-25 09:20:00 315 [lb_av] Comm on [facility] temperature 2023-10-25 09:20:00 97.2 [degF] Com mon [facility] bmi 2023-10-25 09:20:00 56.69 kg/m2 Comm on [facility] oximetry 2023-10-25 09:20:00 97 % Commo n [facility] respiratory rate 2023-10-25 09:20:00 16 /min Common [facility] blood pressure systolic 2023-10-25 09:20:00 125 mm[Hg] Common [facility] blood pressure diastolic 2023-10-25 09:20:00 59 mm[Hg] Common [facility] height 2023-10-03 09:30:00 62.5 [in_i] Comm on [facility] weight 2023-10-03 09:30:00 313.3 [lb_av] Co mmon [facility] temperature 2023-10-03 09:30:00 98.0 [degF] Com mon [facility] bmi 2023-10-03 09:30:00 56.38 kg/m2 Comm on [facility] blood pressure systolic 2023-10-03 09:30:00 138 mm[Hg[facility] blood pressure diastolic 2023-10-03 09:30:00 86 mm[Hg] Common [facility] height 2023-09-30 10:00:00 62.5 [in_i] Comm on [facility] weight 2023-09-30 10:00:00 310 [lb_av] Comm on [facility] bmi 2023-09-30 10:00:00 55.79 kg/m2 Comm on [facility] height 2023-09-08 15:20:00 62.5 [in_i] Comm on [facility] weight 2023-09-08 15:20:00 310 [lb_av] Comm on [facility] temperature 2023-09-08 15:20:00 97.4 [degF] Com mon [facility] bmi 2023-09-08 15:20:00 55.79 kg/m2 Comm on [facility] oximetry 2023-09-08 15:20:00 97 % Commo n [facility] respiratory rate 2023-09-08 15:20:00 17 /min Common [facility] blood pressure systolic 2023-09-08 15:20:00 130 mm[Hg] [facility] blood pressure diastolic 2023-09-08 15:20:00 76 mm[Hg] [facility] height 2023-07-26 10:00:00 62.5 [in_i] Comm on [facility] weight 2023-07-26 10:00:00 307 [lb_av] Comm on [facility] temperature 2023-07-26 10:00:00 97.4 [degF] Com [facility] bmi 2023-07-26 10:00:00 55.25 kg/m2 Comm on [facility] oximetry 2023-07-26 10:00:00 96 % Commo n [facility] respiratory rate 2023-07-26 10:00:00 17 /min Common [facility] blood pressure systolic 2023-07-26 10:00:00 140 mm[Hg] Common [facility] blood pressure diastolic 2023-07-26 10:00:00 80 mm[Hg] [facility] Systolic blood pressure 2022-10-12 01:00:00 153 mm[Hg] [facility] Diastolic blood pressure 2022-10-12 01:00:00 63 mm[Hg] [facility] Heart rate 2022-10-12 01:00:00 85 /min Un[facility] Body temperature 2022-10-12 01:00:00 40.17 Carolann [facility] Respiratory rate 2022-10-12 01:00:00 16 /min [facility] Oxygen saturation in Arterial blood by Pulse oximetry 2022-10-12 01:00:00 99 /min [facility] Body height 2022-10-12 00:33:00 157.5 cm [facility] Body weight 2022-10-12 00:33:00 112.492 kg [facility] BMI 2022-10-12 00:33:00 45.36 kg/m2 [facility] Systolic blood pressure 2022-08-12 21:19:00 129 mm[Hg] [facility] Diastolic blood pressure 2022-08-12 21:19:00 58 mm[Hg] [facility] Heart rate 2022-08-12 21:19:00 68 /min [facility] Body temperature 2022-08-12 21:19:00 36.89 Carolann [facility] Respiratory rate 2022-08-12 21:19:00 20 /min [facility] Body height 2022-08-12 21:19:00 162.6 cm [facility] Body weight 2022-08-12 21:19:00 149.143 kg [facility] BMI 2022-08-12 21:19:00 56.44 kg/m2 [facility] Oxygen saturation in Arterial blood by Pulse oximetry 2022-08-12 21:19:00 97 /min [facility] Systolic blood pressure 2022-08-11 06:00:00 146 mm[Hg] [place] [facility] Diastolic blood pressure 2022-08-11 06:00:00 72 mm[Hg] [facility] Heart rate 2022-08-11 06:00:00 75 /min [facility] Respiratory rate 2022-08-11 06:00:00 15 /min [facility] Oxygen saturation in Arterial blood by Pulse oximetry 2022-08-11 06:00:00 97 /min [facility] Body temperature 2022-08-11 03:20:00 36.39 Carolann [facility] Body weight 2022-08-11 03:20:00 151.501 kg [facility] BMI 2022-08-11 03:20:00 57.33 kg/m2 [facility] Systolic blood pressure 2022-07-08 15:30:00 146 mm[Hg] [facility] Diastolic blood pressure 2022-07-08 15:30:00 73 mm[Hg] [facility] Heart rate 2022-07-08 15:30:00 89 /min [facility] Body height 2022-07-08 15:30:00 162.6 cm [facility] Body weight 2022-07-08 15:30:00 151.774 kg [facility] BMI 2022-07-08 15:30:00 57.43 kg/m2 [facility] Oxygen saturation in Arterial blood by Pulse oximetry 2022-07-08 15:30:00 97 /min [facility] Procedures Procedure Date / Time Performed Performing Clinician Source REFERRAL- REQUEST/RESPONSE 2022-10-27 06:01:00 Doctor Unassigned, [place] [facility] RAPID INFLUENZA A/B 2022-10-12 00:42:00 Ester Diallo ra [facility] COVID-19 (ID NOW RAPID TESTING) 2022-10-12 00:42:00 Laya Diallo [facility] NOTICE OF PRIVACY PRACTICES 2022-10-12 00:26:53 Doctor Unassigned, [place] [facility] CONSENT/REFUSAL FOR DIAGNOSIS AND TREATMENT 2022-10-12 00:24:12 Doctor Unassigned, [place] [facility] MEDICATION CORRESPONDENCE 2022-09-09 05:01:00 Do ctor Unassigned, [place] [facility] CT LUMBAR SPINE WO CONTRAST 2022-08-11 05:27:36 Reagan Lutz [facility] CT ABDOMEN PELVIS W CONTRAST 2022-08-11 05:27:14 Reagan Lutz [facility] ABORH CONFIRMATION (LAB ONLY) 2022-08-11 04:51:00 Reagan Lutz [facility] URINE DRUG (IMMUNOASSAY) - COMPREHENSIVE DRUG SCREEN 2022-08-11 03:56:00 Reagan Lutz [facility] URINALYSIS 2022-08-11 03:56:00 Reagan Lutz [facility] LIPASE 2022-08-11 03:37:00 [facility] TROPONIN I 2022-08-11 03:37:00 Reagan [facility] COMP. METABOLIC PANEL (34250) 2022-08-11 03:37:00 Reagan Lutz [facility] CBC WITH DIFF 2022-08-11 03:37:00 Reagan Lutz [facility] N-TERMINAL PRO-BNP 2022-08-11 03:37:00 Reagan Lutz [facility] HB ABO GROUPING 2022-08-11 03:35:00 [facility]ATMENT 2022-08-11 03:17:47 Doctor Unassigned, [place] [facility] Encounters Start Date/Time End Date/Time Encounter Type Admission Type Attending [facility] Care Facility Care Department Encounter ID Source 2023-11-03 06:47:00 Outpatient JigneshKaye [facility] [id number] [facility] 2023-10-25 11:39:01 Outpatient JigneshKaye [facility] [id number] [facility] 2023-10-24 13:27:01 Outpatient JigneshKaye [facility] [id number] [facility] 2023-10-03 09:36:01 Outpatient JigneshYordani [facility] [id number] [facility] 2023-09-21 07:54:00 Outpatient JigneshKaye [facility] [id number] [facility] 2023-09-20 17:08:00 Outpatient Jignesh Kaye [facility] [id number] [facility] 2023-07-26 09:46:01 Outpatient Kaye Egan [facility] [id number] [facility] 2023-05-03 08:53:03 Outpatient Kaye Egan [facility] [id number] [facility] 2021-09-21 06:12:39 Emergency [facility] [id number] [facility] 2024-10-19 19:30:00 2024-10-19 19:30:00 Outpatient VINNY Abraham MARU JESUS [id number] [facility] 2024-10-12 15:30:00 2024-10-12 15:30:00 Outpatient INDIRA ISABELLA MARU JESUS [id number] [facility] 2024-10-03 13:30:00 2024-10-03 13:30:00 Outpatient PASCUAL MEDEL [id number] [facility] 2024-10-03 11:45:00 2024-10-03 11:45:00 Outpatient CARLOS TEVINNARCISO JESUS [id number] [facility] 2024-10-03 08:30:00 2024-10-03 08:30:00 Outpatient GEORGES SUAREZ [id number] [facility] 2024-10-01 00:00:00 2024-10-01 00:00:00 Outpatient GEORGES SUAREZ [id number] [facility] 2024-09-28 09:30:00 2024-09-28 09:30:00 Outpatient SAY RIVAS [id number] [facility] 2024-09-28 08:30:00 2024-09-28 08:30:00 [facility] [id number] [facility] 2024-09-11 00:00:00 2024-09-11 00:00:00 Outpatient MARU JESUS [id number] [facility] 2024-09-07 10:40:00 2024-09-07 10:40:00 Outpatient BRITTNEY MOON MARU JESUS [id number] [facility] 2024-09-05 09:15:00 2024-09-05 09:15:00 Outpatient ISABELLA JACOBSON MARU JESUS [id number] [facility] 2024-09-04 10:30:00 2024-09-04 10:30:00 Outpatient GEORGES SUAREZ MARU JESUS [id number] [facility] 2024-08-24 00:00:00 2024-08-24 00:00:00 Outpatient TEVIN GONZALEZ MARU JESUS [id number] [facility] 2024-08-17 11:00:00 2024-08-17 11:00:00 Outpatient WILL MARU JESUS [id number] [facility] 2024-08-03 00:00:00 2024-08-03 00:00:00 Outpatient PASCUAL MEDEL [id number] [facility] 2024-07-30 11:00:00 2024-07-30 11:00:00 Outpatient AMBER ORDOÑEZ MARU JESUS [id number] [facility] 2024-07-27 00:00:00 2024-07-27 00:00:00 Outpatient MARIAH MEDELTHIA MARU JESUS [id number] [facility] 2024-07-26 00:00:00 2024-07-26 00:00:00 Outpatient LIZY PASCUALMERLENE JESUS [id number] [facility] 2024-07-24 19:30:00 2024-07-24 19:30:00 Outpatient VINNY Fowler [facility] [id number] [facility] 2024-07-15 00:00:00 2024-07-15 00:00:00 Outpatient MARIAH MEDELTHIA [facility] [id number] [facility] 2024-07-13 10:05:00 2024-07-13 10:05:00 Outpatient MARU JESUS [id number] [facility] 2024-07-13 09:00:00 2024-07-13 09:00:00 Outpatient DARRION THOMPSON [id number] [facility] 2024-07-13 00:00:00 2024-07-13 00:00:00 Outpatient MARU MARU [id number] [facility] 2024-07-05 00:00:00 2024-07-05 00:00:00 Outpatient MARU MARU [id number] [facility] 2024-06-22 11:30:00 2024-06-22 11:30:00 Outpatient TEVIN GONZALEZ MARU JESUS [id number] [facility] 2024-06-20 00:00:00 2024-06-20 00:00:00 Outpatient PASCUAL MEDEL MARU JESUS [id number] [facility] 2024-06-20 00:00:00 2024-06-20 00:00:00 Outpatient LIZYMARIAHPASCUAL MARU JESUS [id number] [facility] 2024-06-15 11:15:00 2024-06-15 11:15:00 Outpatient MARU JESUS [id number] [facility] 2024-06-15 10:00:00 2024-06-15 10:00:00 Outpatient MARU JESUS [id number] [facility] 2024-05-25 09:00:00 2024-05-25 09:00:00 Outpatient MARIAH MEDELTHIA MARU JESUS [id number] [facility] 2024-05-18 11:00:00 2024-05-18 11:00:00 Outpatient MARU JESUS [id number] [facility] 2024-05-05 00:00:00 2024-05-05 00:00:00 Outpatient PASCUAL MEDEL MARU JESUS [id number] [facility] 2024-05-01 00:00:00 2024-05-01 00:00:00 Outpatient MARU JESUS [id number] [facility] 2024-04-29 00:00:00 2024-04-29 00:00:00 Outpatient LIZY PASCUAL MARU JESUS [id number] [facility] 2024-04-26 00:00:00 2024-04-26 00:00:00 Outpatient DAVID MEDELA MARU JESUS [id number] [facility] 2024-04-24 09:25:00 2024-04-24 09:25:00 Outpatient LAB90 MARU JESUS [id number] [facility] 2024-04-24 09:00:00 2024-04-24 09:00:00 Outpatient CHELSI LEACH MARU JESUS [id number] [facility] 2024-04-24 08:30:00 2024-04-24 08:30:00 Outpatient PASCUAL MEDEL [id number] [facility] 2024-04-24 00:00:00 2024-04-24 00:00:00 Outpatient MARU JESUS [id number] [facility] 2024-04-20 10:15:00 2024-04-20 10:15:00 Outpatient MARU JESUS [id number] [facility] 2024-04-20 09:00:00 2024-04-20 09:00:00 Outpatient MARU JESUS [id number] [facility] 2024-04-20 08:15:00 2024-04-20 08:15:00 Outpatient MARU JESUS [id number] [facility] 2024-04-19 00:00:00 2024-04-19 00:00:00 Outpatient RADIOLOGY, DEPT MARU JESUS [id number] [facility] 2024-04-13 09:55:00 2024-04-13 09:55:00 Outpatient IRWIN ALCANTAR [id number] [facility] 2024-04-13 00:00:00 2024-04-13 00:00:00 Outpatient DAVID MEDELA MARU JESUS [id number] [facility] 2024-04-12 11:00:00 2024-04-12 11:00:00 Outpatient ISABELLA JACOBSON [id number] [facility] 2024-04-11 00:00:00 2024-04-11 00:00:00 Outpatient MD MARU MTZ [id number] [facility] 2024-04-10 11:20:00 2024-04-10 11:20:00 Outpatient MARU JESUS [id number] [facility] 2024-04-10 11:15:00 2024-04-10 11:15:00 Outpatient MARU MARU [id number] [facility] 2024-04-10 11:10:00 2024-04-10 11:10:00 Outpatient MARU MARU [id number] [facility] 2024-04-10 00:00:00 2024-04-10 00:00:00 Outpatient PASCUAL MEDEL MARU [id number] [facility] 2024-04-10 00:00:00 2024-04-10 00:00:00 Outpatient PASCUAL MEDEL [facility] [id number] [facility] 2024-04-10 00:00:00 2024-04-10 00:00:00 Outpatient PASCUAL MEDEL [facility] JES[facility] [id number] [facility] 2024-04-09 00:00:00 2024-04-09 00:00:00 Outpatient MARU JESUS [id number] [facility] 2024-04-06 09:15:00 2024-04-06 09:15:00 [id number] [facility]:00:00 2024-04-06 00:00:00 Outpatient IRWIN ALCANTAR [id number] [facility] 2024-03-29 08:30:00 2024-03-29 08:30:00 Outpatient CARLOZ FELTON [id number] [facility] 2024-03-29 08:00:00 2024-03-29 08:00:00 Outpatient MARU JESUS [id number] [facility] 2024-03-27 00:00:00 2024-03-27 00:00:00 Outpatient CARLOZ FELTON [id number] [facility] 2024-03-21 14:25:00 2024-03-21 14:25:00 Outpatient IRWIN ALCANTAR [id number] [facility] 2024-03-21 14:15:00 2024-03-21 14:15:00 Outpatient TRED47 MARU JESUS [id number] [facility] 2024-03-16 10:40:00 2024-03-16 10:40:00 Outpatient MARU JESUS [id number] [facility] 2024-03-08 00:00:00 2024-03-08 00:00:00 Outpatient MARU JESUS [id number] [facility] 2024-02-15 00:00:00 2024-02-15 00:00:00 Outpatient YAHAIRAANN-MARIEDARLENE [id number] [facility] 2024-02-13 00:00:00 2024-02-13 00:00:00 Outpatient CHELSI LEACH [id number] [facility] 2024-02-08 00:00:00 2024-02-08 00:00:00 Outpatient MD MARU MTZ [id number] [facility] 2024-02-02 15:20:00 2024-02-02 15:20:00 Outpatient LAB90 MARU JESUS [id number] [facility] 2024-02-02 13:45:00 2024-02-02 13:45:00 Outpatient LAB90 MARU JESUS [id number] [facility] 2024-02-02 00:00:00 2024-02-02 00:00:00 Outpatient PASCUAL MEDEL [id number] [facility] 2024-02-01 00:00:00 2024-02-01 00:00:00 Outpatient PASCUAL MEDEL [id number] [facility] 2024-01-30 00:00:00 2024-01-30 00:00:00 Outpatient PASCUAL MEDEL [id number] [facility] 2024-01-30 00:00:00 2024-01-30 00:00:00 Outpatient PASCUAL MEDEL [id number] [facility] 2024-01-25 08:30:00 2024-01-25 08:30:00 Outpatient SAY RIVAS [id number] [facility] 2024-01-25 00:00:00 2024-01-25 00:00:00 Outpatient TEVIN GONZALEZ MARU JESUS [id number] [facility] 2024-01-19 08:05:00 2024-01-19 08:05:00 Outpatient LAB90 MARU JESUS [id number] [facility] 2024-01-19 00:00:00 2024-01-19 00:00:00 Outpatient LIZY PASCUAL MARU JESUS [id number] [facility] 2024-01-19 00:00:00 2024-01-19 00:00:00 Outpatient PASCUAL MEDEL MARU JESUS [id number] [facility] m[facility] 2024-01-18 09:25:00 2024-01-18 09:25:00 Outpatient LAB90 MARU JESUS [id number] [facility] m[facility]lla 2024-01-18 08:30:00 2024-01-18 08:30:00 [id number] [facility] 00:00:00 2024-01-18 00:00:00 Outpatient MARU JESUS [id number] [facility] 2024-01-10 00:00:00 2024-01-10 00:00:00 Outpatient MARU JESUS [id number] [facility] 2024-01-09 00:00:00 2024-01-09 00:00:00 Outpatient MD MARU MTZ [id number] [facility] 2024-01-07 00:00:00 2024-01-07 00:00:00 Outpatient DARLENE GAN [id number] [facility] 2024-01-05 13:30:00 2024-01-05 13:30:00 Outpatient PACSUAL MEDEL [id number] [facility] 2024-01-04 00:00:00 2024-01-04 00:00:00 Outpatient PASCUAL MEDEL [id number] [facility] 2023-12-30 00:00:00 2023-12-30 00:00:00 Outpatient PASCUAL MEDEL [facility] JES[facility] [id number] [facility] 2023-12-29 10:10:00 2023-12-29 10:10:00 Outpatient CARLOZ FELTON [facility] JESUS [id number] [facility] 2023-12-23 08:20:00 2023-12-23 08:20:00 Outpatient LAB47 MARU JESUS [id number] [facility] 2023-12-23 08:20:00 2023-12-23 08:20:00 Outpatient MARU JESUS [id number] [facility] ybm[facility] 2023-12-21 10:30:00 2023-12-21 10:30:00 Outpatient PASCUAL MEDEL MARU JESUS [id number] [facility] 2023-12-15 00:00:00 2023-12-15 00:00:00 Outpatient YAHAIRADARLENE JACOBSEN [facility] [id number] [facility] 2023-[facility]-12 00:00:00 2023-12-12 00:00:00 Outpatient TEVIN GONZALEZ MARU JESUS [id number] [facility] 2023-12-09 16:30:00 2023-12-09 16:30:00 Outpatient MALIKDARLENE [facility] [id number] [facility] 2023-11-25 00:00:00 2023-11-25 00:00:00 Outpatient TEVIN GONZALEZ [facility] [id number] [facility] 2023-11-25 00:00:00 2023-11-25 00:00:00 [facility]EL[facility] [id number] 2023-11-23 09:45:00 2023-11-23 09:45:00 Outpatient LAB90 MARU JESUS [id number] [facility] 2023-11-23 09:00:00 2023-11-23 09:00:00 Outpatient CHELSI LEACH [id number] [facility] 2023-11-04 00:00:00 2023-11-04 00:00:00 [facility] [id number] 2023-10-25 00:00:00 2023-10-25 00:00:00 OFFICE VISIT ESTAB PT LEVEL 4 STLMLC STLMLC [id number] [facility] 2023-10-03 00:00:00 2023-10-03 00:00:00 OFFICE VISIT NEW PT LEVEL 4 STLMLC STLMLC [id number] [facility] 2023-10-03 00:00:00 2023-10-03 00:00:00 (TEL) STLMLC STLMLC [id number] [facility] 2023-09-30 00:00:00 2023-09-30 00:00:00 OFFICE VISIT ESTAB PT LEVEL 4 [facility]LMLC STLMLC [id number] [facility] 2023-09-30 00:00:00 2023-09-30 00:00:00 (TEL) STLMLC STLMLC [id number] [facility] 2023-09-22 00:00:00 2023-09-22 00:00:00 (TEL) STLMLC STLMLC [id number] [facility] 2023-09-21 00:00:00 2023-09-21 00:00:00 (TEL) STLMLC STLMLC [id number] [facility] 2023-09-13 00:00:00 2023-09-13 00:00:00 (TEL) STLMLC STLMLC [id number] [facility] 2023-09-08 00:00:00 2023-09-08 00:00:00 OFFICE VISIT ESTAB PT LEVEL 4 [facility]LMLC STLMLC [id number] [facility] 2023-08-09 00:00:00 2023-08-09 00:00:00 (TEL) STLMLC STLMLC [id number] [facility] 2023-08-04 00:00:00 2023-08-04 00:00:00 (TEL) STLMLC STLMLC [id number] [facility] 2023-07-26 00:00:00 2023-07-26 00:00:00 OFFICE VISIT ESTAB PT LEVEL 4 STLMLC STLMLC [id number] [facility] 2023-03-21 08:00:58 2023-03-21 08:00:58 Outpatient [facility] [id number] Carloz Das 2023-03-15 17:40:30 2023-03-15 17:40:30 Outpatient [facility] [id number] Carloz Das 2023-02-11 00:00:00 2023-02-11 00:00:00 [facility] 1..840.114 350.1.13.10 [id number] [id number] [facility] 2023-02-11 00:00:00 2023-02-11 00:00:00 Refill MariamaMariahPascualFormerly [facility] COOPER?[facility] [id number] 350.1.13.10 [id number] [id number] [facility] 2023-01-24 10:30:00 2023-01-24 10:30:00 Outpatient R MARIAMA PASCUAL [facility] [id number] [facility] 2023-01-10 00:00:00 2023-01-10 00:00:00 Refill Mariah LeslieFormerly [facility] COOPER?[facility] [id number] 350.1.13.10 [id number] [id number] [facility] 2022-12-31 00:00:00 2022-12-31 00:00:00 Telephone [facility]David [facility] [id number] [id number] [id number] [facility] 2022-12-29 00:00:00 2022-12-29 00:00:00 Telephone YanethPascual wells [facility] 1..114 350.1.13.10 4.2.7.2.686 [id number] 044 [id number] [facility] 2022-10-27 00:00:00 2022-10-27 00:00:00 Orders Only Doctor Unassigned, [place] [facility] 1..114 350.1.13.10 4.2.7.2.686 [id number] [id number] [facility] 2022-10-27 00:00:00 2022-10-27 00:00:00 Telephone Marley Carvajal 1..114 350.1.13.10 4.2.7.2.686 [id number] [facility] 2022-10-11 18:41:00 2022-10-11 19:52:00 Emergency X LAYA DIALLO [facility] E[facility] [id number] [facility] 2022-10-11 18:41:00 2022-10-11 19:52:00 Emergency Laya Diallo [facility] 1.114 350.1.13.10 4.2.7.2.686 [id number] 084 [id number] [facility] 2022-09-17 00:00:00 2022-09-17 00:00:00 Telephone MariamaMariahPascualFormerly [facility] COPOER?[facility] 1.114 350.1.13.10 4.2.7.2.686 [id number] 044 [id number] [facility] 2022-09-10 00:00:00 2022-09-10 00:00:00 Telephone Mariama PascualFormerly [facility] CO[facility] 1..114 350.1.13.10 4.2.7.2.686 [id number] 044 [id number] [facility] 2022-09-09 00:00:00 2022-09-09 00:00:00 Orders Only Doctor Unassigned, [place] [facility] 1.2.840.114 350.1.13.10 4.2.7.2.686 [id number] [facility] 2022-08-12 16:00:00 2022-08-12 16:59:59 Outpatient R PASCUAL LESLIE [facility] [id number] [facility] 2022-08-12 16:00:00 2022-08-12 16:59:59 Office Visit Mariama [facility] 1.2.840.114 350.1.13.10 4.2.7.2.686 [id number] [id number] [facility] 2022-08-10 22:17:00 2022-08-11 01:22:00 Emergency X REAGAN LUTZ [facility] ERT [id number] [facility] 2022-08-10 22:17:00 2022-08-11 01:22:00 Emergency Reagan Lutz [facility] 1.2.840.114 350.1.13.10 4.2.7.2.686 [id number] [id number] [facility] 2022-08-09 00:00:00 2022-08-09 00:00:00 Telephone Mariama [facility] 1.2.840.114 350.1.13.10 4.2.7.2.686 [id number] 044 [id number] [facility] 2022-07-08 10:30:00 2022-07-08 11:19:11 [facility] [id number] [facility] 2022-07-08 10:30:00 2022-07-08 11:19:11 Office Visit [facility] 1.840.114 350.1.13.10 4.2.7.2.686 [id number] [facility] 2022-07-07 00:00:00 2022-07-07 00:00:00 Refill David [facility] 1.840.114 350.1.13.10 4.2.7.2.686 [id number] 044 [id number] [facility] 2022-06-10 17:00:00 2022-06-10 17:23:19 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 Visit 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, Cory Easley David [facility]Former[facility] 1.840.114 350.1.13.10 4.2.7.2.686 [id number] [facility] 2022-06-10 15:30:00 2022-06-10 16:36:53 Outpatient R PASCUAL LESLIE [facility] [id number] [facility] 2022-06-10 15:30:00 2022-06-10 16:36:53 [facility] 1.840.114 350.1.13.10 4.2.7.2.686 [id number] [facility] 2022-06-10 16:30:00 2022-06-10 16:34:00 Outpatient R PASCUAL LESLIE [facility] [id number] [facility] 2022-06-09 00:00:00 2022-06-09 00:00:00 Abstract David LeslieFormerly [facility] 1..840.114 350.1.13.10 4.2.7.2.686 [id number] [facility] 2022-06-08 15:30:00 2022-06-08 15:30:00 Outpatient R YANETHBRITANYPASCUAL [facility] [id number] [facility] 2022-05-02 14:50:00 2022-05-02 15:40:00 Emergency X RAMONA MENDEZ [facility] ERT [id number] [facility] 2022-05-02 14:50:00 2022-05-02 15:40:00 Emergency Ramona Mendez [facility] 1.2.840.114 350.1.13.10 4.2.7.2.686 [id number] [facility] 2022-05-02 14:50:00 2022-05-02 15:40:00 Emergency X RAMONA MENDEZ [facility] ERT [id number] [facility] 2022-04-16 13:25:00 2022-04-16 13:25:00 Outpatient R EDIE DELONG [facility] [id number] [facility] 2021-12-14 14:20:00 2021-12-14 14:20:00 Outpatient R DOROTA SHAVER [facility] [id number] [facility] 2021-11-23 12:40:00 2021-11-23 12:40:00 Outpatient R FRANK MADDEN [facility] [id number] [facility] 2021-11-03 00:00:00 2021-11-03 00:00:00 Transition of Care Alison Gardner 1.2.840.114 350.1.13.10 4.2.7.2.686 [id number] [facility] 2021-10-29 08:10:00 2021-11-01 15:55:00 Inpatient X JERARDO DELGADO [facility] [id number] [facility] 2021-10-29 08:10:00 2021-11-01 15:55:00 Hospital Encounter Reagan LutzJerardo [facility] 1.2.840.114 350.1.13.10 4.2.7.2.686 [id number] [facility] 2021-10-25 22:07:00 2021-10-26 02:04:00 Emergency X EZRA MILLIGAN [facility] ERT [id number] [facility] 2021-10-25 22:07:00 2021-10-26 02:04:00 Emergency Ezra Milligan S [facility] 1.2.840.114 350.1.13.10 4.2.7.2.686 [id number] 084 [id number] [facility] 2021-10-02 00:00:00 2021-10-02 00:00:00 Telephone Consuelo Clayton 1.2.840.114 350.1.13.10 4.2.7.2.686 [id number] [id number] [facility] 2021-08-14 00:00:00 2021-08-14 00:00:00 Orders Only Doctor Unassigned, [place] [facility] 1.2.840.114 350.1.13.10 4.2.7.2.686 [id number] [facility] 2021-07-31 11:02:52 2021-07-31 11:19:13 Office Visit Frank Madden [facility] 1.2.840.114 350.1.13.10 4.2.7.2.686 [id number] [facility] 2021-07-31 11:10:00 2021-07-31 11:10:00 Outpatient FRANK DOE [facility] [id number] [facility] 2021-07-24 10:30:00 2021-07-24 10:30:00 Outpatient RADHA BRENNAN [facility] [id number] [facility] 2021-06-18 10:33:23 2021-06-18 11:03:23 Office Visit Care, Ang Primary Adarsh [facility] UNIT 1.2.840.114 350.1.13.10 4.2.7.2.686 [id number] [facility] 2021-06-18 10:30:00 2021-06-18 10:30:00 Outpatient ELLIE ANNE [facility] [id number] [facility] 2021-06-15 10:52:14 2021-06-15 23:59:00 Hospital Encounter Ellie Kuo [facility] 1.2.840.114 350.1.13.10 4.2.7.2.686 [id number] [facility] 2021-06-15 00:00:00 2021-06-15 00:00:00 Outpatient ELLIE ANNE [facility] [id number] [facility] 2021-06-15 00:00:00 2021-06-15 00:00:00 Telephone Adarsh [facility] 1.2.840.114 350.1.13.10 4.2.7.2.686 [id number] [facility] 2021-05-28 13:37:06 2021-05-28 14:07:06 Office Visit Care, Cory Primary Adarsh [facility] UNIT 1.2.840.114 350.1.13.10 4.2.7.2.686 [id number] [facility] 2021-05-28 13:30:00 2021-05-28 13:30:00 [facility] [id number] [facility] 2021-05-26 09:45:00 2021-05-26 10:29:00 Emergency Reagan Lutz [facility] 1.2.840.114 350.1.13.10 4.2.7.2.686 [id number] [facility] 2021-04-21 00:00:00 2021-04-21 00:00:00 Telephone Adarsh Ellie [facility] 1.2.114 350.1.13.10 4.2.7.2.686 [id number] [facility] 2021-04-15 00:00:00 2021-04-15 00:00:00 Telephone Adarsh [facility] UN[facility] 1.2840.114 350.1.13.10 4.2.7.2.686 [id number] [facility] 2021-04-13 00:00:00 2021-04-13 00:00:00 Orders Only Doctor Unassigned, [place] [facility] 1..114 350.1.13.10 4.2.7.2.686 [id number] [id number] [facility] 2021-04-06 11:57:20 2021-04-06 13:00:17 Office Visit Frank Madden [facility] 1..114 350.1.13.10 4.2.7.2.686 [id number] [facility] 2021-04-06 12:30:00 2021-04-06 12:30:00 Outpatient FRANK DOE [facility] [id number] [facility] 2021-03-18 00:00:00 2021-03-18 00:00:00 Refill Ellie Kuo [facility] 1..114 350.1.13.10 4.2.7.2.686 [id number] [facility] 2021-02-23 13:39:51 2021-02-23 14:18:57 [facility] 1.2.840.114 350.1.13.10 4.2.7.2.686 [id number] [facility] 2021-02-23 09:20:00 2021-02-23 09:20:00 Outpatient Alicia DOROTA SHAVER [facility] [id number] [facility] 2021-02-10 00:00:00 2021-02-10 00:00:00 Telephone [facility] UN[facility] 1.2840.114 350.1.13.10 4.2.7.2.686 [id number] [facility] 2021-01-25 00:00:00 2021-01-25 00:00:00 [facility].2840.114 350.1.13.10 4.2.7.2.686 [id number] [facility] 2021-01-12 00:00:00 2021-01-12 00:00:00 [facility] 1.840.114 350.1.13.10 4.2.7.2.686 [id number] [facility] 2021-01-01 09:33:34 2021-01-01 10:33:20 [facility] 1.2840.114 350.1.13.10 4.2.7.2.686 [id number] [facility] 2021-01-01 09:30:00 2021-01-01 09:30:00 Outpatient Alicia KUO ELLIE [facility] [id number] [facility] 2021-01-01 00:00:00 2021-01-01 00:00:00 Orders Only Doctor Unassigned, [place] [facility] 1.840.114 350.1.13.10 4.2.7.2.686 [id number] [facility] 2020-12-31 00:00:00 2020-12-31 00:00:00 Telephone Ellie Kuo [facility] 1.2.840.114 350.1.13.10 4.2.7.2.686 [id number] [facility] 2020-12-24 17:20:00 2020-12-24 17:20:00 Outpatient R OMAR [facility] [id number] [facility] 2020-12-24 16:56:05 2020-12-24 17:16:05 Laboratory Only Lab, Adc Fam Pob I Omar [facility] Office Building [facility] 1.2840.114 350.1.13.10 4.2.7.2.686 [id number] [facility] 2020-12-24 00:00:00 2020-12-24 00:00:00 Letter (Out) Doctor Unassigned, [place] [facility] 1.2.840.114 350.1.13.10 4.2.7.2.686 [id number] [facility] 2020-11-28 00:00:00 2020-11-28 00:00:00 Telephone Ellie Kuo [facility] 1.2.840.114 350.1.13.10 4.2.7.2.686 [id number] [facility] 2020-10-27 10:06:10 2020-10-27 23:59:00 Hospital Encounter [facility] 1.2.840.114 350.1.13.10 4.2.7.2.686 [id number] [facility] 2020-10-27 10:00:00 2020-10-27 10:05:00 Hospital Encounter [facility] 1.2840.114 350.1.13.10 4.2.7.2.686 [id number] [facility] 2020-10-27 00:00:00 2020-10-27 00:00:00 Outpatient FRANK DOE [facility] [id number] [facility] 2020-10-08 10:46:03 2020-10-08 11:37:55 Office Visit Frank Madden [facility] 1.0.114 350.1.13.10 4.2.7.2.686 [id number] [facility] 2020-10-08 11:00:00 2020-10-08 11:00:00 Outpatient R FRANK MADDEN [facility] [id number] [facility] 2020-10-06 11:30:00 2020-10-06 23:59:00 Hospital Encounter Ellie Kuo [facility] 1.84.114 350.1.13.10 4.2.7.2.686 [id number] [facility] 2020-10-06 00:00:00 2020-10-06 00:00:00 Outpatient Alicia KUO [facility] [id number] [facility] 2020-10-06 00:00:00 2020-10-06 00:00:00 Outpatient Alicia KUO [facility] [id number] [facility] 2020-10-06 00:00:00 2020-10-06 00:00:00 Orders Only Doctor Unassigned, [place] [facility] 1..114 350.1.13.10 4.2.7.2.686 [id number] [facility] 2020-09-22 00:00:00 2020-09-22 00:00:00 Telephone Ellie Kuo [facility] 1.840.114 350.1.13.10 4.2.7.2.686 [id number] [facility] 2020-09-18 08:57:06 2020-09-18 09:59:36 Office Visit Care, Cory Primary Adarsh [facility] UNIT 1.2840.114 350.1.13.10 4.2.7.2.686 [id number] [facility] 2020-09-18 08:30:00 2020-09-18 08:30:00 Outpatient R [facility] [id number] [facility] 2020-09-18 00:00:00 2020-09-18 00:00:00 Orders Only Doctor Unassigned, [place] [facility] 1.840.114 350.1.13.10 4.2.7.2.686 [id number] [facility] 2020-06-26 09:29:43 2020-06-26 12:40:14 Office Visit Care, Cory Primary Adarsh [facility] UNIT 1.840.114 350.1.13.10 4.2.7.2.686 [id number] [facility] 2020-06-26 09:30:00 2020-06-26 09:30:00 Outpatient Alicia KUO ELLIE [facility] [id number] [facility] 2020-05-30 09:00:00 2020-05-30 09:00:00 Outpatient RADHA BRENNAN [facility] [id number] [facility] 2020-03-17 09:46:38 2020-03-18 15:29:58 Laboratory Only Pc, Adc Echo Room [address] [place] [address] 1.840.114 350.1.13.10 4.2.7.2.686 [id number] [facility] 2020-03-17 10:00:00 2020-03-17 10:00:00 Outpatient Alicia [facility] [id number] [facility] 2020-03-07 08:30:00 2020-03-07 08:30:00 Outpatient RADHA BRENNAN [facility] [id number] [facility] 2020-03-03 00:00:00 2020-03-03 00:00:00 Outpatient [facility] [id number] [facility] 2020-02-21 00:00:00 2020-02-21 00:00[facility] 1.840.114 350.1.13.10 4.2.7.2.686 [id number] [facility] 2020-02-20 15:00:00 2020-02-20 15:00:00 [facility] [id number] 2020-02-20 09:06:12 2020-02-20 09:26:12 Telemedici ne Visit Sivakumar [facility] 1.84.114 350.1.13.10 4.2.7.2.686 [id number] [facility] 2020-02-18 00:00:00 2020-02-18 00:00:00 [facility] 1.84.114 350.1.13.10 4.2.7.2.686 [id number] [facility] 2020-02-12 00:00:00 2020-02-12 00:00:00 Orders Only Doctor Unassigned, [place] [facility] 1.114 350.1.13.10 4.2.7.2.686 [id number] [facility] 2020-02-07 00:00:00 2020-02-07 00:00:00 Outpatient Alicia KUOELLIE [facility] [id number] [facility] 2020-01-15 00:00:00 2020-01-15 00:00:00 Telephone Adarsh [facility] 1.840.114 350.1.13.10 4.2.7.2.686 [id number] [facility] 2020-01-10 10:26:47 2020-01-11 11:05:43 Office Visit Care, Cory Ortiz Ellie Kuo [facility] UNIT 1.2.840.114 350.1.13.10 4.2.7.2.686 [id number] [facility] 2020-01-10 00:00:00 2020-01-10 00:00:00 Orders Only Doctor Unassigned, [place] [facility] 1.2.840.114 350.1.13.10 4.2.7.2.686 [id number] [id number] [facility] Results Test Description Test Time Test Comments Results Result Co mments Source LIPID [id number] 09:38:49* Test Item Value Reference Range Interpretation Comme nts CHOLESTEROL (test code = 2210) 163 MG/DL <200 TRIGLYCERIDES (test code = 2232) 104 MG/DL <150 HDL CHOLESTEROL (test code = 2220) 44 MG/DL >39 CALC LDL CHOL (test code = 2237) 99 MG/DL <100 NOTE: CALCULATED LDL IS BASED ON RUPA-KHAN METHOD WHICHINCLUDES ADJUSTABLE TRIGLYCERIDE:VLDL CHOLESTEROL RATIO.THIS FACTOR VARIES BY MEASURED TRIGLYCERIDE AND NON-HDLCHOLESTEROL CONCENTRATIONS WITH INCREASED CALCULATED LDL SEENIN HIGHER TRIGLYCERIDE OR LOWER NON-HDL SPECIMENS. FOR MOREINFORMATION, SEE CLIENT ANNOUNCEMENT AT [email or web address] RISK RATIO LDL/HDL (test code = 2238) 2.25 RATIO <3.22 CBC W/AUTO DIFF WITH [id number] 04:24:57* Test Item Value Reference Range Interpretation Comme nts WBC (test code = 1001) 5.0 K/UL 3.5-11.0 RBC (test code = 1002) 3.82 M/UL 3.80-5.40 HEMOGLOBIN (test code = 1003) 11.5 G/DL 11.5-15.5 HEMATOCRIT (test code = 1004) 34.6 % 34.0-45.0 MCV (test code = 1005) 90.6 fL 80.0-99.0 MCH (test code = 1006) 30.1 PG 25.0-33.0 MCHC (test code = 1007) 33.2 G/DL 31.0-36.0 RDW (test code = 1038) 12.7 % 11.5-15.0 NEUTROPHILS (test code = 1008) 47.3 % LYMPHOCYTES (test code = 1010) 41.7 % MONOCYTES (test code = 1011) 8.8 % EOSINOPHILS (test code = 1012) 1.4 % BASOPHILS (test code = 1013) 0.6 % IMMATURE GRANULOCYTES (test code = 1036) 0.2 % NUCLEATED RBCS (test code = 1065) 0.0 /100 WBC'S See_Comment [Automated message] The system which generated this result transmitted reference range: 0.0. The reference range was not used to interpret this result as normal/abnormal. PLATELET COUNT (test code = 1015) 296 K/UL 130-400 ABSOLUTE NEUTROPHILS (test code = 1066) 2.37 K/UL 1.50-7.50 ABSOLUTE LYMPHOCYTES (test code = 1067) 2.09 K/UL 1.00-4.00 ABSOLUTE MONOCYTES (test code = 1068) 0.44 K/UL 0.20-1.00 ABSOLUTE EOSINOPHILS (test code = 1040) 0.07 K/UL 0.00-0.50 ABSOLUTE BASOPHILS (test code = 1069) 0.03 K/UL 0.00-0.20 ABS IMMATURE GRANULOCYTES (test code = 1020) 0.01 K/UL 0.00-0.10 ABS NUCLEATED RBCS (test code = 43658) 0.00 K/UL 0.00-0.11 [facility] has important pathology staff changes effective 01/19/2023. New pathology staff will provide uninterrupted, excellent patient care and clinical consultation. See URL: [email or web address]. UNLESS OTHERWISE INDICATED, ALL TESTING PERFORMED AT [facility] [address] [place] [address] [employer] CONSULTANT: CELSO CROWE M.D. CLIA NUMBER [id number] [facility] [place]. [id number] HEMOGLOBIN [id number] 04:24:06* Test Item Value Reference Range Interpretation Comme nts HEMOGLOBIN A1c (test code = 26919) 5.8 % 4.2-5.6 H [employer] GUIDELINES FOR HGB A1C: PREDIABETES/INCREASED RISK . . . . . . . 5.7-6.4% DIAGNOSIS OF DIABETES . . . . . . . . . >=6.5% WITH CONFIRMATION OR APPROPRIATE SYMPTOMS NOTE: ASSAY MAY BE AFFECTED BY HEMOGLOBINOPATHIES (SICKLE CELL ANEMIA, S-C DISEASE, OTHERS) OR ARTIFICIALLY LOWERED BY DECREASED RED CELL SURVIVAL (HEMOLYTIC ANEMIAS, BLOOD LOSS, ETC.). CONSIDER ALTERNATE TESTING OR LABORATORY CONSULTATION. ABORH Confirmation (Lab Only)2022-08-11 05:21:49* Test Item Value Reference Range Interpretation Comme nts ABO & RH (test code = 20) O Positive Performed at [facility] Laboratory [facility] Blood [place] [address]Toll Free: [phone] No. [id number] [facility] Screen - ONCE [id number] 04:48:48* Test Item Value Reference Range Interpretation Comme nts ABO & RH (test code = 20) O Positive Performed at [facility] Laboratory [facility] [place] [facility] Blood [place] [address]Toll Free: [phone] No. [id number] IAT (test code = 1185) Negative Performed at [facility] Laboratory [facility] [place] [facility] Blood [place] [address]Toll Free: [phone] No. [id number] [facility] HospitalCOMPREHENSIVE METABOLIC [id number] 06:56:00* Test Item Value Reference Range Interpretation Comme nts GLUCOSE (test code = 2217) 118 MG/DL 70-99 H BUN (test code = 2208) 13 MG/DL 6-20 CREATININE (test code = 2214) 0.65 MG/DL 0.60-1.30 eGFR (2020 CKD-EPI) (test code = 04554) 105 ML/MIN/1.73 >60 CALC BUN/CREAT (test code = 2235) 20 RATIO 6-28 SODIUM (test code = 223) 142 MEQ/L 133-146 POTASSIUM (test code = 2228) 3.9 MEQ/L 3.5-5.4 CHLORIDE (test code = 2215) 104 MEQ/L 95-107 CARBON DIOXIDE (test code = 2206) 26 MEQ/L 19-31 CALCIUM (test code = 2209) 9.6 MG/DL 8.5-10.5 PROTEIN, TOTAL (test code = 2229) 8.3 G/DL 6.1-8.3 ALBUMIN (test code = 2201) 3.8 G/DL 3.5-5.2 CALC GLOBULIN (test code = 2240) 4.5 G/DL 1.9-3.7 H CALC A/G RATIO (test code = 2234) 0.8 RATIO 1.0-2.6 L BILIRUBIN, TOTAL (test code = 2207) <0.2 MG/DL See_Comment [Automated me ssage] The system which generated this result transmitted reference range: <=1.2. The reference range was not used to interpret this result as normal/abnormal. ALKALINE PHOSPHATASE (test code = 2203) 81 U/L 40-133 AST (test code = 8) 19 U/L 9-40 ALT (test code = 2219) 27 U/L 5-40 UNLESS OTHERWISE INDICATED, ALL TESTING PERFORMED [facility] [address] [place] [address] [employer] CONSULTANT: ZEINAB GONZALEZ M.D. CLIA NUMBER [id number] [facility] [place]. [id number] CBC W/AUTO DIFF WITH [id number] 03:34:45* Test Item Value Reference Range Interpretation Comme nts WBC (test code = 1001) 5.8 K/UL 3.5-11.0 RBC (test code = 1002) 4.08 M/UL 3.80-5.40 HEMOGLOBIN (test code = 1003) 11.8 G/DL 11.5-15.5 HEMATOCRIT (test code = 1004) 34.7 % 34.0-45.0 MCV (test code = 1005) 85.0 fL 80.0-99.0 MCH (test code = 1006) 28.9 PG 25.0-33.0 MCHC (test code = 1007) 34.0 G/DL 31.0-36.0 RDW (test code = 1038) 14.5 % 11.5-15.0 NEUTROPHILS (test code = 1008) 55.0 % LYMPHOCYTES (test code = 1010) 32.9 % MONOCYTES (test code = 1011) 10.1 % EOSINOPHILS (test code = 1012) 1.0 % BASOPHILS (test code = 1013) 0.7 % IMMATURE GRANULOCYTES (test code = 1036) 0.3 % NUCLEATED RBCS (test code = 1065) 0.0 /100 WBC'S See_Comment [Automated [employer]] The system which generated this result transmitted reference range: 0.0. The reference range was not used to interpret this result as normal/abnormal. PLATELET COUNT (test code = 1015) 375 K/UL 130-400 ABSOLUTE NEUTROPHILS (test code = 1066) 3.20 K/UL 1.50-7.50 ABSOLUTE LYMPHOCYTES (test code = 1067) 1.92 K/UL 1.00-4.00 ABSOLUTE MONOCYTES (test code = 1068) 0.59 K/UL 0.20-1.00 ABSOLUTE EOSINOPHILS (test code = 1040) 0.06 K/UL 0.00-0.50 ABSOLUTE BASOPHILS (test code = 1069) 0.04 K/UL 0.00-0.20 ABS IMMATURE GRANULOCYTES (test code = 1020) 0.02 K/UL 0.00-0.10 ABS NUCLEATED RBCS (test code = 13853) 0.00 K/UL 0.00-0.11 TSH, THIRD [id number] 06:59:20* Test Item Value Reference Range Interpretation Comme nts TSH, THIRD GENERATION (test code = 2821) 1.290 UIU/ML 0.400-4.100 LIPID [id number] 06:05:05* Test Item Value Reference Range Interpretation Comme nts CHOLESTEROL (test code = 2210) 151 MG/DL <200 TRIGLYCERIDES (test code = 2232) 99 MG/DL <150 HDL CHOLESTEROL (test code = 2220) 35 MG/DL >39 L CALC LDL CHOL (test code = 2237) 97 MG/DL <100 NOTE: CALCULATED LDL IS BASED ON RUPA-KHAN METHOD WHICHINCLUDES ADJUSTABLE TRIGLYCERIDE:VLDL CHOLESTEROL RATIO.THIS FACTOR VARIES BY MEASURED TRIGLYCERIDE AND NON-HDLCHOLESTEROL CONCENTRATIONS WITH INCREASED CALCULATED LDL SEENIN HIGHER TRIGLYCERIDE OR LOWER NON-HDL SPECIMENS. FOR MOREINFORMATION, SEE CLIENT ANNOUNCEMENT AT [email or web address] [email or web address] RATIO LDL/HDL (test code = 2238) 2.77 RATIO <3.22 UNLESS OTHERW ISE INDICATED, ALL [facility]FORMED [facility] [facility] [employer] [address] [place] [id number] [employer]IANCE CONSULTANT: ZEINAB GONZALEZ M.D. CLIA NUMBER [id number] [facility] [place]. [id number] COMPREHENSIVE METABOLIC [id number] 06:05:05* Test Item Value Reference Range Interpretation Comme nts GLUCOSE (test code = 2217) 92 MG/DL 70-99 BUN (test code = 2208) 12 MG/DL 6-20 CREATININE (test code = 2214) 0.65 MG/DL 0.60-1.30 EFFECTIVE 11/02/2021, [facility] HAS IMPLEMENTED THE NKF-ASN RECOMMENDED KD-EPI EGFR REFIT CALCULATION THAT DOES NOT INCLUDE A COEFFICIENT FORRACE. FOR MORE INFORMATION, SEE ANNOUNCEMENT [email or web address] eGFR (2020 CKD-EPI) (test code = 17030) 105 ML/MIN/1.73 >60 CALC BUN/CREAT (test code = 2235) 18 RATIO 6-28 SODIUM (test code = 223) 142 MEQ/L 133-146 POTASSIUM (test code = 2228) 4.1 MEQ/L 3.5-5.4 CHLORIDE (test code = 2215) 104 MEQ/L 95-107 CARBON DIOXIDE (test code = 2206) 26 MEQ/L 19-31 CALCIUM (test code = 2209) 9.6 MG/DL 8.5-10.5 PROTEIN, TOTAL (test code = 222) 7.9 G/DL 6.1-8.3 ALBUMIN (test code = 2201) 4.0 G/DL 3.5-5.2 CALC GLOBULIN (test code = 2240) 3.9 G/DL 1.9-3.7 H CALC A/G RATIO (test code = 2234) 1.0 RATIO 1.0-2.6 BILIRUBIN, TOTAL (test code = 2207) 0.2 MG/DL See_Comment [Automated me ssage] The system which generated this result transmitted reference range: <=1.2. The reference range was not used to interpret this result as normal/abnormal. ALKALINE PHOSPHATASE (test code = 2204) 70 U/L 40-133 AST (test code = 2218) 16 U/L 9-40 ALT (test code = 2219) 23 U/L 5-40 HEPATITIS PANEL, [id number] 05:57:02* Test Item Value Reference Range Interpretation Comme nts HEPATITIS A IgM (test code = 90906) NON-REACTIVE NON-REACTIVE HEPATITIS B CORE IgM (test code = 4644) NON-REACTIVE NON-REACTIVE HEPATITIS B SURF AG (test code = 2739) NON-REACTIVE NON-REACTIVE HEPATITIS C ANTIBODY (test code = 4675) NON-REACTIVE NON-REACTIVE INTERPRETATION HEPATITIS A: (test code = 2552) (NOTE) Hepatitis A serology shows no evidence of acute hepatitis A. INTERPRETATION HEPATITIS B: (test code = 25451) (NOTE) Hepatitis B serology shows no evidence of acute hepatitis B andno indication of exposure to hepatitis B virus in the previous juan eight months. INTERPRETATION HEPATITIS C: (test code = 24037) (NOTE) Hepatitis C serology shows no evidence of exposure to hepatitisC virus at this time. It can take up to 12 months after exposure tothe hepatitis C virus for antibodies to become detectable in the blood in certain patients. CBC W/AUTO DIFF WITH [id number] 04:45:05* Test Item Value Reference Range Interpretation Comme nts WBC (test code = 1001) 5.2 K/UL 3.5-11.0 RBC (test code = 1002) 4.32 M/UL 3.80-5.40 HEMOGLOBIN (test code = 1003) 12.4 G/DL 11.5-15.5 HEMATOCRIT (test code = 1004) 38.3 % 34.0-45.0 MCV (test code = 1005) 88.7 fL 80.0-99.0 MCH (test code = 1006) 28.7 PG 25.0-33.0 MCHC (test code = 1007) 32.4 G/DL 31.0-36.0 RDW (test code = 1038) 13.3 % 11.5-15.0 NEUTROPHILS (test code = 1008) 47.9 % NOTE: EFFECTIVE 10/12/2021, REFERENCE INTERVALS AND FLAGGING FORRELATIVE (%) WBC DIFFERENTIAL WILL BE ELIMINATED REDUNDANT TOABSOLUTE COUNTS.SEE [email or web address] te LYMPHOCYTES (test code = 1010) 38.9 % MONOCYTES (test code = 1011) 10.4 % EOSINOPHILS (test code = 1012) 1.3 % BASOPHILS (test code = 1013) 1.3 % IMMATURE GRANYLOCYTES (test code = 1036) 0.2 % NUCLEATED RBCS (test code = 1065) 0.0 /100 WBC'S See_Comment [Automated message] The system which generated this result transmitted reference range: 0.0. The reference range was not used to interpret this result as normal/abnormal. PLATELET COUNT (test code = 1015) 357 K/UL 130-400 ABSOLUTE NEUTROPHILS (test code = 1066) 2.48 K/UL 1.50-7.50 ABSOLUTE LYMPHOCYTES (test code = 1067) 2.02 K/UL 1.00-4.00 ABSOLUTE MONOCYTES (test code = 1068) 0.54 K/UL 0.20-1.00 ABSOLUTE EOSINOPHILS (test code = 1040) 0.07 K/UL 0.00-0.50 ABSOLUTE BASOPHILS (test code = 1069) 0.07 K/UL 0.00-0.20 ABS IMMATURE GRANULOCYTES (test code = 1020) 0.01 K/UL 0.00-0.10 ABS NUCLEATED RBCS (test code = 34013) 0.00 K/UL 0.00-0.11 Notes Date/Time Note Provider Source 2024-09-04 10:38:52 Chief Complaint Patient presents with Fall She fell this morning at home. Bilateral shoulder pain, mostly right shoulder. Left knee pain and low, right side back pain. Syl Vu MA II [facility] 2024-07-13 09:59:01 6 minute walk completed. Pre O2 sat = 98% Dyspnea on Jame scale = 6 Fatigue on Jame scale = 0 Post O2 sat = 97% Dyspnea on Jame scale = 10 Fatigue on Jame scale = 0 First 6 minute walk test? Yes Supplemental oxygen during test? No Stopped before 6 minutes? Yes - 5 min 0 sec. Reason - shortness of breath Paused during test? Yes - number of pauses 8 6 MWT results - 183 meters. Did patient experience any pain of discomfort during test? Yes, If yes, explain shortness of breath and hip pain Other symptoms at end of test: No Angina, No Dizziness, Yes Hip pain, No Calf pain, No Leg pain. T Radha Lieberman RN [facility] 2024-07-13 09:05:21 Chief Complaint Patient presents with Consultation For SOB/ Hypersomnia. Rose Wood LVN [facility] 2024-05-25 08:42:26 Chief Complaint Patient presents with Follow-up 1 month follow form pancreatitis. C/o of right arm pain Ailin Mercado LVN [facility] 2024-04-24 08:29:32 Chief Complaint Patient presents with Follow-up Hospitalization Hospital follow up pancreatitis Ailin Mercado LVN [facility] 2024-03-29 08:32:42 Chief Complaint Patient presents with Follow-Up Visit Patient is here for follow up for bilateral knee, shannon 12/29/23 last injection, no recent injury, patient stated having more pain on the left knee with swelling and tightness also stated at the moment goes to physical therapy , tx'd joint pain relief,gabapentin and tylenol RALPH Vazquez [facility] 2024-01-18 08:20:28 Chief Complaint Patient presents with Physical Had lab work done on 2-15-2024. Still has a cough and coughing up yellow mucous Ailin Mercado LVN [facility] 2024-01-05 13:31:46 Chief Complaint Patient presents with Cough Sore Throat Sinus Problem Headache Mucus yellow tinged. 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 Patient has c/o bilateral knee pain. Patient is taking tylenol, Gabapentin & Naproxen for pain [facility] 2023-12-21 10:18:09 Chief Complaint Patient presents with Follow-Up Visit 4 week follow up. C/O lower back pain in the middle on right side. Needs refill on Advair Diskus and Olopatadine HCL 0.1% Ailin Mercado LVN [facility] 2023-12-09 16:29:45 Chief Complaint Patient presents with Knee Pain Left knee pain EN Noel LVN [facility] 2023-11-23 09:06:35 Chief Complaint Patient presents with New Patient Establish Care New patient Establish care .Ailin Mercado LVN [facility]
--- NOTE | 2024-10-10 12:01 | RAD REPORT ---
EXAMINATION: US LEFT LOWER EXTREMITY VENOUS DOPPLER CLINICAL INDICATION: PAIN TECHNIQUE: Complete bilateral duplex sonography of the LEFT lower extremity veins was performed. The examination included compression for vein patency, color Doppler imaging and flow augmentation in response to distal compression of the distal external iliac, common femoral, femoral, popliteal, tibi al, and great and small saphenous veins. COMPARISON: No prior exam. FINDINGS: Duplex sonography testing of the veins of the LEFT lower extremity was performed. Color flow imaging shows all veins to be compressible with [id number] color filling. Pulsatile and phasic flow is present within all lower extremity deep and superficial veins examined. IMPRESSION: There is no deep vein or superficial vein thrombosis.
--- NOTE | 2024-10-10 12:31 | RAD REPORT ---
EXAMINATION: CERVICAL SPINE MULTIPLE VIEWS CLINICAL INDICATION: PAIN TECHNIQUE: Multiple views of the cervical spine were obtained. COMPARISON: No prior exam. FINDINGS: Alignment: The cervical spine has normal alignment. Bones: Vertebral body heights are maintained. No aggressive osseous lesions. Discs: 2 mm degenerative retrolisthesis is seen at C5 on 6. Small plate osteophytes are present. Soft Tissue: No soft tissue abnormalities. IMPRESSION: Mild lower cervical spondylosis.
--- NOTE | 2024-10-10 12:31 | RAD REPORT ---
EXAMINATION: XR RIGHT SHOUDLER CLINICAL INDICATION: Female, 54 years old. PAIN RIGHT TECHNIQUE: Multiple views of the right shoulder were obtained. COMPARISON: No prior exam. FINDINGS: Calcification seen in the region of the distal rotator cuff likely representing calcific te ndinitis. Mild AC joint and glenohumeral joint arthritic changes are also present.
--- NOTE | 2024-10-10 14:36 | ER ---
Nurse's Notes [facility] Name: Nisreen Astorga Age: 54 yrs Sex: Female : 1970 Arrival Date: 10/10/2024 Time: 11:09 Bed 24 Private MD: Diagnosis: Calcific tendinitis of right shoulder;Pain in left lower leg Presentation: 10/10 11:19 Chief complaint: Patient states: Left leg and right arm 'spasming' / pain since jl7 Tuesday. Coronavirus screen: At this time, the client does not indicate any symptoms associated with coronavirus-19. Ebola Screen: No symptoms or risks identified at this time. Initial Sepsis Screen: Does the patient meet any 2 criteria? No. Patient's initial sepsis screen is negative. Does the patient have a suspected source of infection? No. Patient's initial sepsis screen is negative. Risk Assessment: Do you want to hurt yourself or someone else? Patient reports no desire to harm self or others. 11:19 Method Of Arrival: Wheelchair [facility] 11:19 Acuity: DANIEL 3 jl7 11:19 Onset of symptoms was October 06, 2024. jl7 Triage Assessment: 11:21 General: Appears in no apparent distress. uncomfortable, Behavior is calm, cooperative, jl7 appropriate for age. Pain: Complains of pain in right arm and left leg Pain currently is 10 out of 10 on a pain scale. Neuro: Level of Consciousness is awake, alert, obeys commands, Oriented to person, place, time, situation. Cardiovascular: Patient's skin is warm and dry. Respiratory: Airway is patent Respiratory effort is even, unlabored, Respiratory pattern is regular, symmetrical. Derm: Skin is pink, warm \T\ dry. Historical: - Allergies: 11:21 No Known Allergies; jl7 - PMHx: 11:21 Asthma; Hypertension; Depressive disorder; jl7 - Immunization history:: Adult Immunizations unknown. - Infectious Disease History:: Denies. - Social history:: Smoking status: Patient denies any tobacco usage or history of. - Family history:: not pertinent. - Hospitalizations: : No recent hospitalization is reported. Screenin:23 Abuse screen: Denies threats or abuse. Denies injuries from another. Nutritional jl7 screening: No deficits noted. Tuberculosis screening: No symptoms or risk factors identified. 12:[address] [facility] ED Fall Risk Assessment (Adult) History of falling in the last 3 months, me1 including since admission No falls in past 3 months (0 pts) Confusion or Disorientation No (0 pts) Intoxicated or Sedated No (0 pts) Impaired Gait No (0 pts) Mobility Assist Device Used No (0 pt) Altered Elimination No (0 pt) Score/Fall Risk Level 0 - 2 = Low Risk Maintained a safe environment, Provided non-skid footwear, Hourly rounding (assess needs \T\ fall precautionary measures) done. Assessment: 11:23 Reassessment: Dr. Neville in triage assessing pt. jl7 12:05 General: Appears uncomfortable, obese, well groomed, well developed, Behavior is calm, me1 cooperative, appropriate for age, Reports Left leg and right arm 'spasming' / pain since Tuesday. Pain: Complains of pain in right shoulder and left leg and right arm Pain does not radiate. Pain currently is 10 out of 10 on a pain scale. Quality of pain is described as aching, spasm Pain began 2-3 days ago. Is continuous. Neuro: Level of Consciousness is awake, alert, obeys commands, Oriented to person, place, time, situation, Appropriate for age. Cardiovascular: Patient's skin is warm and dry. Respiratory: Airway is patent Respiratory effort is even, unlabored, Respiratory pattern is regular, symmetrical. GI: No signs and/or symptoms were reported involving the gastrointestinal system. : No signs and/or symptoms were reported regarding the genitourinary system. EENT: No signs and/or symptoms were reported regarding the EENT system. Derm: Skin is intact, is healthy with good turgor, Skin is pink, warm \T\ dry. Musculoskeletal: Reports pain in right shoulder and left leg and right arm since Tuesday. Vital Signs: 11:19 BP 138 / 69; Pulse 92; Resp 17; Temp 97; Pulse Ox 95% ; Weight 144.24 kg; Height 5 ft. jl7 2 in. ; Pain 10/10; 15:19 BP 131 / 68; Pulse 91; Resp 16; Temp 98; Pulse Ox 97% ; me1 11:19 Body Mass Index 58.16 (144.24 kg, 157.48 cm) [facility] 11:19 Pain Scale: Adult [facility] ED Course: 11:14 Patient arrived in ED. im 11:20 Anderson Neville MD is Attending Physician. rn 11:21 Triage completed. jl7 11:21 Arm band placed on right wrist. jl7 11:23 Patient has correct armband on for positive identification. jl7 11:48 Patient placed in an exam room, on a stretcher. ll1 11:51 Extremity Venous Uni Ltd US In Process Unspecified. EDMS 12:05 Provided Education on: POC. Verbalized understanding. . Client placed on continuous me1 cardiac and pulse oximetry monitoring. NIBP monitoring applied. Pulse ox on. NIBP on. 12:05 No provider procedures requiring assistance completed. Patient did not have IV access me1 during this emergency room visit. 12:13 XRAY Shoulder RIGHT 2 view In Process Unspecified. EDMS 12:13 XRAY C Spine Ap/lat In Process Unspecified. EDMS 13:30 Marely Kolb, RN is Primary Nurse. me1 Administered Medications: No medications were administered Medication: 11:23 VIS not applicable for this client. jl7 Outcome: 14:35 Discharge ordered by . rn 15:20 Discharged to home ambulatory, me1 15:20 Condition: stable 15:20 Discharge instructions given to patient, Instructed on discharge instructions, follow up and referral plans. medication usage, Demonstrated understanding of instructions, follow-up care, medications, Prescriptions given X 1, 15:20 Patient left the ED. me1 Signatures: Dispatcher [employer] EDSD Anderson Neville MD MD rn Leal, Jahala RN RN jl7 Clifton Armstrong RN RN 1 Mony Barahona Marely Kolb, RN RN me1 Corrections: (The following items were deleted from the chart) 13:45 11:19 Chief complaint: Patient states: Left leg and right arm 'spasming' / pain since me1 Tuesday jl7
--- NOTE | 2024-10-10 14:36 | EDPHYS ---
Physician Documentation [facility] Name: Nisreen Astorga Age: 54 yrs Sex: Female : 1970 Arrival Date: 10/10/2024 Time: 11:09 Bed 24 Private MD: ED Physician Anderson Neville HPI: 10/10 12:13 This 54 yrs old Black Female presents to ER via Wheelchair with complaints of Shoulder rn Pain - both, Leg Pain - left. 12:13 The patient or guardian complains of pain. right shoulder. rn 12:13 Onset: The symptoms/episode began/occurred 5 day(s) ago. Modifying factors: the rn symptoms are alleviated by remaining still, The symptoms are aggravated by movement, rotation of arm. Severity of symptoms: At their worst the symptoms were moderate, in the emergency department the symptoms are unchanged. The patient has experienced similar episodes in the past. Patient reports right shoulder pain and left calf pain since Tuesday. No fall or trauma. Has had this shoulder pain before and has had knee pains before with arthritis but never calf pain. No history of DVT or PE. No fever or chills. No chest pain or shortness of breath. Reports chronic back pain with sciatica. Historical: - Allergies: 11:21 No Known Allergies; jl7 - PMHx: 11:21 Asthma; Hypertension; Depressive disorder; jl7 - Immunization history:: Adult Immunizations unknown. - Infectious Disease History:: Denies. - Social history:: Smoking status: Patient denies any tobacco usage or history of. - Family history:: not pertinent. - Hospitalizations: : No recent hospitalization is reported. ROS: 12:13 Constitutional: Negative for fever, chills, and weight loss, Neck: Negative for injury, rn pain, and swelling, Cardiovascular: Negative for chest pain, palpitations, and edema, Respiratory: Negative for shortness of breath, cough, wheezing, and pleuritic chest pain, Abdomen/GI: Negative for abdominal pain, nausea, vomiting, diarrhea, and constipation, Back: Negative for injury and pain, MS/Extremity: Positive for right shoulder and left calf pain Skin: Negative for injury, rash, and discoloration, Neuro: Negative for headache, weakness, numbness, tingling, and seizure, Exam: 12:13 Constitutional: This is a well developed, well nourished patient who is awake, alert, rn and in no acute distress. Neck: No midline cervical tenderness. No swelling Cardiovascular: Regular rate and rhythm. No pulse deficits. Respiratory: No increased work of breathing, no retractions or nasal flaring. Abdomen/GI: Soft, non-tender MS/ Extremity: Pulses equal, no cyanosis. Neurovascular intact. Full, normal range of motion. Equal circumference. Neuro: Awake and alert, GCS 15 Vital Signs: 11:19 BP 138 / 69; Pulse 92; Resp 17; Temp 97; Pulse Ox 95% ; Weight 144.24 kg; Height 5 ft. jl7 2 in. ; Pain 10/10; 15:19 BP 131 / 68; Pulse 91; Resp 16; Temp 98; Pulse Ox 97% ; me1 11:19 Body Mass Index 58.16 (144.24 kg, 157.48 cm) jl7 11:19 Pain Scale: Adult jl7 MDM: 11:20 Medical Screening Exam initiated rn 14:34 Differential diagnosis: DJD, tendonitis, DVT. Data reviewed: vital signs, nurses notes, rn radiologic studies, plain films, ultrasound, and as a result, I will discharge patient. Counseling: I had a detailed discussion with the patient and/or guardian regarding the historical points, exam findings, and any diagnostic results supporting the discharge/admit diagnosis, radiology results, the need for outpatient follow up, to return to the emergency department if symptoms worsen or persist or if there are any questions or concerns that arise at home. Special discussion: I discussed with the patient/guardian in detail that at this point there is no indication for admission to the hospital. It is understood, however, that if the symptoms persist or worsen the patient needs to return immediately for re-evaluation. ED course: I have personally reviewed all of the results, including but not limited to imaging deemed necessary to safely discharge this patient at this time. All results given to and printed out for patient. I personally went over all the results with the patient and answered all questions. Patient will follow-up with PCP and or specialist as discussed. Return precautions given and understood.. 10/10 11:28 Order name: XRAY Shoulder RIGHT 2 view; Complete Time: 14: rn 10/10 11:28 Order name: XRAY C Spine Ap/lat; Complete Time: 14: rn 10/10 11:28 Order name: Extremity Venous [employer] US; Complete Time: 14:31 rn Administered Medications: No medications were administered Disposition Summary: 10/10/24 14:35 Discharge Ordered Notes: Location: Home rn Problem: new rn Symptoms: have improved rn Condition: Stable rn Diagnosis - Calcific tendinitis of right shoulder rn - Pain in left lower leg rn Followup: rn - With: Private Physician - When: As needed - Reason: Recheck today's complaints, Re-evaluation by your physician Discharge Instructions: - Discharge Summary Sheet rn - Musculoskeletal Pain rn - Rotator Cuff Tendinitis rn - Calcific Tendinitis rn Forms: - Medication Reconciliation Form rn - Antibiotic learning support specialist - Prescription Opioid Use rn - Patient Portal Instructions rn - Leadership Thank You Letter rn Prescriptions: - gabapentin 100 mg Oral capsule - take 1 capsule ORAL route every 12 hours As needed; 20 capsule; Refills: 0, rn Product Selection Permitted Signatures: Dispatcher [employer] Anderson Pennington MD MD rn Leal, Jahala, RN RN jl7
[2024-10-10 15:26] VITALS: BP 131/68; TEMP 98; O2SAT 97
== END 2024-10-10 15:20 | disposition home or self-care (01) ==
LOC: ER 11:09
DX: M75.31 Calcific tendinitis of right shoulder (principal); M79.662 Pain in left lower leg
CPT/HCPCS: 72040; 93971